=== PATIENT | female | born 1945 | race Caucasian/White ===

== ENCOUNTER 2023-04-09 15:52 | Outpatient (OUT) | payer MEDICARE, OTHER, SELFPAY ==
--- NOTE | 2023-04-09 16:00 | MM_ITS ---
Patient: JESSICA SILVA Exam Date: 04/09/2023 : 1945 Gender:F Ordering : DR SAMIR MARTINI M.D. Admission #: [id number] Family : Order #: [id number] CLICK HERE TO VIEW EXAM RADIOLOGY REPORT PROCEDURE: MM TOMOSYNTHESIS SCREENING BI COMPARISON: MG MAMM SCREEN 3D MARCO A CAD, 08/18/2021. MG MAMM SCREEN MARCO A W CAD, 03/25/2020. MG MAMM SCREEN MARCO A W CAD, 11/07/2018. MG MAMM MARCO A DIAG W CAD DIG, 11/04/2014. INDICATIONS: Z12.31 Calculator Name NCI Breast Cancer Risk Assessment Tool 5 Year Breast Cancer Risk 3.30% Lifetime Breast Cancer Risk 7.00% Personal Breast Cancer No Personal Ovarian Cancer No Treatments None Family Cancers Mother with breast cancer at age ~47; Cousin-maternal with ovarian cancer at age 50. LOCATION: [facility] BREAST COMPOSITION: Scattered areas fibroglandular density. FINDINGS: DIAGNOSTIC CATEGORY 2--BENIGN FINDING: RIGHT BREAST: No significant suspicious finding. Scattered benign-appearing lymph nodes are present. No significant change has occurred. LEFT BREAST: No significant suspicious finding. Scattered benign-appearing calcifications are present. Scattered benign-appearing nodules are present. No significant change has occurred. RECOMMENDATIONS: ROUTINE MAMMOGRAM AND CLINICAL EVALUATION IN 12 MONTHS. PLEASE NOTE: A NORMAL MAMMOGRAM DOES NOT EXCLUDE THE POSSIBILITY OF BREAST CANCER. A CLINICALLY SUSPICIOUS PALPABLE LUMP SHOULD BE BIOPSIED. Dictated by: Tariq Levin M.D. on 04/10/2023 at 14:54 Approved by: Tariq Levin M.D. on 04/10/2023 at 14:56
== END 2023-04-09 15:53 | disposition home or self-care (01) ==
PROVIDERS: PCP Internal Medicine; Visit Provider Internal Medicine
DX: Z12.31 Encounter for screening mammogram for malignant neoplasm of breast (principal); Z80.3 Family history of malignant neoplasm of breast; Z80.41 Family history of malignant neoplasm of ovary
CPT/HCPCS: 77063; 77067

== ENCOUNTER 2023-08-24 16:34 | Observation (INO) | payer MEDICARE, SELFPAY ==
[2023-08-24] VITALS (8 sets, daily range): BP systolic 120–158; BP diastolic 65–79; PULSE 61–78; RESP 15–20; TEMP 36.4–36.6; O2SAT 97–98; BMI 20.2
--- NOTE | 2023-08-24 16:38 | ECG_ITS ---
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
--- NOTE | 2023-08-24 16:39 | CT_ITS ---
The [address] [address] Patient Name: JESSICA SILVA MRN: [id number] date: 1945 Sex: F Assigned Patient Location: ER Current Patient Location: ER Accession/Order Number: [id number] Exam Date: 08/24/2023 17:11 Report Date: 08/24/2023 18:01 At the request of: SANGEETHA PIERRE Procedure: CT head/brain wo con EXAM: CT head/brain wo con HISTORY: 20 minutes of left arm and leg tingling COMPARISON: None. TECHNIQUE: Unenhanced transaxial tomographic sections obtained from the vertex through posterior fossa. FINDINGS: Mild diffuse age-related cerebral atrophy. No midline shift, mass effect or intracranial hemorrhage are identified. The mastoid air cells and visualized paranasal sinuses are clear. CT/CT head/brain wo con IMPRESSION: No acute intracranial process is identified. Electronically authenticated by: RACHEL MCCONNELL Date: 08/24/2023 18:01
--- NOTE | 2023-08-24 16:47 | ED_ITS ---
HPI - General Adult General Chief complaint: Weakness Stated complaint: poss cva Time Seen by Provider: 08/24/23 16:38 History of Present Illness HPI narrative: 77-year-old female presents for tingling in her left arm and left leg. It happened about 2 hours ago and lasted for 20 minutes. She has no symptoms now. No headache or weakness or numbness. Nothing like this has happened previously. She was transported here by paramedics Related Data Home Medications Medication Instructions Recorded Confirmed gabapentin 600 mg tablet 300 mg PO TID 08/24/23 08/24/23 losartan 50 mg-hydrochlorothiazide 1 tab PO DAILY 08/24/23 08/24/23 12.5 mg tablet meloxicam 15 mg tablet 15 mg PO DAILY 08/24/23 08/24/23 ropinirole 0.5 mg tablet mg 08/24/23 ropinirole 1 mg tablet 1 mg PO BID 08/24/23 08/24/23 tramadol 50 mg tablet 50 mg PO TID PRN pain 08/24/23 08/24/23 Allergies Allergy/AdvReac Type Severity Reaction Status Date / Time nka AdvReac Unknown Uncoded 08/24/23 16:50 Review of Systems ROS Narrative A ten point review of systems is negative except as noted above. Exam Narrative Exam Narrative: Nurses note and vital signs reviewed and patient is not hypoxic. General: The patient appears well and in no apparent distress. Patient is resting comfortably on cart. Skin: Warm, dry, no pallor noted. There is no rash noted. Head: Normocephalic, atraumatic Eye: Normal conjunctiva, no drainage Ears, Nose, Mouth, and Throat: oral mucosa is moist. Nares patent. Cardiovascular: Regular Rate and Rhythm Respiratory: Patient is in no distress, no accessory muscle use, lungs are clear to auscultation, no wheezing, rales or rhonchi Back: non-tender GI: Soft and nontender Musculoskeletal: The patient has no evidence of calf tenderness, no pitting edema, symmetrical pulses noted bilaterally Neurological: A&O x4, normal speech, cranial nerves II through XII intact, upper and lower extremity strength symmetric and intact. Psychiatric: Cooperative Constitutional Vital Signs, click to edit/add: Last Vital Signs Temp 97.9 F 08/24/23 16:40 Pulse 69 08/24/23 17:20 Resp 16 08/24/23 17:20 BP 147/65 H 08/24/23 16:42 Pulse Ox 98 08/24/23 17:20 O2 Del Method Room Air 08/24/23 16:40 Course Vital Signs Vital signs: Vital Signs Temperature 97.9 F 08/24/23 16:40 Pulse Rate 72 08/24/23 16:40 Respiratory Rate 20 08/24/23 16:40 Blood Pressure 147/65 H 08/24/23 16:40 Pulse Oximetry 98 08/24/23 16:40 Oxygen Delivery Method Room Air 08/24/23 16:40 Temperature 97.9 F 08/24/23 16:40 Pulse Rate 69 08/24/23 17:20 Respiratory Rate 16 08/24/23 17:20 Blood Pressure 147/65 H 08/24/23 16:42 Pulse Oximetry 98 08/24/23 17:20 Oxygen Delivery Method Room Air 08/24/23 16:40 Medical Decision Making MDM Narrative Medical decision making narrative: CT brain per radiologist shows no acute findings. She remains asymptomatic. CTA head and neck are ordered and pending and the patient is signed out to Dr. Gutierrez at change of shift. Differential Diagnosis Differential Diagnosis: Paresthesia, stroke, TIA Lab Data Lab results reviewed: Yes I reviewed the patient's lab results Labs: Lab Results 08/24/23 Range/Units 16:50 WBC 5.9 (4.0-11.0) 10^3/uL RBC 4.00 L (4.20-5.40) 10^6/uL Hgb 12.3 (12.0-16.0) g/dL Hct 37.4 (36.0-48.0) % MCV 93.5 (81.0-99.0) fL MCH 30.8 (26.7-34.0) pg MCHC 32.9 (29.9-35.2) g/dL RDW 12.0 (11.0-15.0) % Plt Count 290 (150-450) 10^3/uL MPV 8.5 L (9.5-13.5) fL Neut % (Auto) 59.2 (43.0-75.0) % Lymph % (Auto) 28.9 (20.5-60.0) % [place] % (Auto) 7.8 (1.7-12.0) % Eos % (Auto) 3.2 (0.9-7.0) % Baso % (Auto) 0.7 (0.2-2.0) % Neut # (Auto) 3.5 (1.4-6.5) 10^3/uL Lymph # (Auto) 1.7 (1.2-3.8) 10^3/uL [place] # (Auto) 0.5 (0.3-0.8) 10^3/uL Eos # (Auto) 0.2 (0.0-0.7) 10^3/uL Baso # (Auto) 0.0 (0.0-0.1) 10^3/uL Abs Immat Gran (auto) 0.01 (0.00-0.03) 10^3/uL Imm/Tot Granulo (auto) 0.2 (0.0-0.5) % Sodium 140 (136-145) mmol/L Potassium 3.7 (3.5-5.1) mmol/L Chloride 101 (98-107) mmol/L Carbon Dioxide 31.1 (21.0-32.0) mmol/L Anion Gap 11.6 BUN 21.0 H (7.0-18.0) mg/dL Creatinine 0.88 (0.55-1.02) mg/dL Est GFR ( Amer) >60 (>=60) Est GFR (Non-Af Amer) >60 (>=60) BUN/Creatinine Ratio 23.9 Glucose 118 H (74-106) mg/dL Calcium 8.9 (8.5-10.1) mg/dL Imaging Data CT scan - head: Radiologist's impression: ITS Impressions Head CT 08/24/23 16:39 IMPRESSION: No acute intracranial process is identified. Electronically authenticated by: RACHEL MCCONNELL Date: 08/24/2023 18:01 ECG Data Attestation: I personally reviewed and interpreted this ECG as follows: (EKG on my interpretation shows normal sinus rhythm without acute change and a rate of 69.) Discharge Plan Discharge Patient Disposition: Still a Patient
[2023-08-24 17:02] LABS: Basophils Percent Auto 0.7 % (0.2-2.0); Eosinophils Absolute Auto 0.2 10^3/uL (0.0-0.7); Eosinophils Percent Auto 3.2 % (0.9-7.0); Hematocrit 37.4 % (36.0-48.0); Hemoglobin 12.3 g/dL (12.0-16.0); Immature Granulocytes Abs Auto 0.01 10^3/uL (0.00-0.03); Immature Granulocytes Pct Auto 0.2 % (0.0-0.5); Lymphocytes Absolute Auto 1.7 10^3/uL (1.2-3.8); Lymphocytes Percent Auto 28.9 % (20.5-60.0); Mean Corpuscular HGB Conc 32.9 g/dL (29.9-35.2); Mean Corpuscular Hemoglobin 30.8 pg (26.7-34.0); Mean Corpuscular Volume 93.5 fL (81.0-99.0); Mean Platelet Volume 8.5 fL (9.5-13.5); Monocytes Absolute Auto 0.5 10^3/uL (0.3-0.8); Monocytes Percent Auto 7.8 % (1.7-12.0); Neutrophils Absolute Auto 3.5 10^3/uL (1.4-6.5); Neutrophils Percent Auto 59.2 % (43.0-75.0); Platelet Count 290 10^3/uL (150-450); White Blood Count 5.9 10^3/uL (4.0-11.0)
[2023-08-24 17:14] LABS: Anion Gap 11.6; BUN Creatinine Ratio 23.9; Calcium 8.9 mg/dL (8.5-10.1); Carbon Dioxide 31.1 mmol/L (21.0-32.0); Chloride 101 mmol/L (98-107); Estimated GFR (African America >60 (>=60); Estimated GFR (Non-African Ame >60 (>=60); Glucose 118 mg/dL (74-106); Potassium 3.7 mmol/L (3.5-5.1); Sodium 140 mmol/L (136-145)
--- NOTE | 2023-08-24 18:06 | CT_ITS ---
[address] [address] Patient Name: JESSICA SILVA MRN: [id number] date: 1945 Sex: F Assigned Patient Location: ER Current Patient Location: Accession/Order Number: [id number] Exam Date: 08/24/2023 18:40 Report Date: 08/24/2023 19:24 At the request of: SANGEETHA PIERRE Procedure: CT angio neck EXAM: CT angio head, CT angio neck CLINICAL INDICATION: Transient paresthesia COMPARISON: Same day CT head TECHNIQUE: Contiguous axial images are obtained from the neck to the vertex before and after the administration of nonionic contrast. 2-D and 3-D reconstructions were performed to better evaluate the vasculature. NASCET criteria was utilized during interpretation of internal carotid artery stenosis. Automatic exposure control radiation dose reduction technology was utilized. FINDINGS: There are no vascular occlusions observed. The bilateral common and internal carotid arteries are grossly patent with only mild scattered calcific plaque in the carotid bulbs bilaterally. The vertebral arteries, basilar artery and basilar artery bifurcation are normal. The posterior communicating arteries are not visualized on the source images. The internal carotid artery bifurcations, the middle cerebral artery bifurcation/trifurcation regions and the anterior communicating artery region appears normal. The posterior cerebral arteries appear intact in the visualized segments. The brain parenchyma is normal. The ventricles, basal cisterns, and sulci over the convexities are normal. The orbits, visualized paranasal sinuses and bony calvarium are normal. The sella turcica and cavernous sinus regions appear intact. The mastoid air cells are normal. The fossa of Rosenmuller is normal. The parotid space contents and executive producer promos space contents appear intact. The parapharyngeal spaces are normal. The submandibular and sublingual space contents appear intact. The submental space is intact. The epiglottis, aryepiglottic folds, and piriform sinuses are normal. The vallecula appears normal. The larynx and trachea are normal. The thyroid lobes and esophagus appear intact. The carotid space contents are normal. There is no deep cervical chain adenopathy observed. The jugulodigastric regions appear intact. The perivertebral space contents are normal. The supraclavicular regions appear intact. The visualized mediastinum and lungs appear intact. Mild degenerative changes of the cervical spine. CT/CT angio neck IMPRESSION: No significant vascular occlusion, aneurysm or dissection. Electronically authenticated by: ULISES RAMIREZ Date: 08/24/2023 19:24
--- NOTE | 2023-08-24 18:06 | CT_ITS ---
[address] [address] Patient Name: JESSICA SILVA MRN: [id number] date: 1945 Sex: F Assigned Patient Location: ER Current Patient Location: Accession/Order Number: [id number] Exam Date: 08/24/2023 18:40 Report Date: 08/24/2023 19:24 At the request of: SANGEETHA PIERRE Procedure: CT angio head EXAM: CT angio head, CT angio neck CLINICAL INDICATION: Transient paresthesia COMPARISON: Same day CT head TECHNIQUE: Contiguous axial images are obtained from the neck to the vertex before and after the administration of nonionic contrast. 2-D and 3-D reconstructions were performed to better evaluate the vasculature. NASCET criteria was utilized during interpretation of internal carotid artery stenosis. Automatic exposure control radiation dose reduction technology was utilized. FINDINGS: There are no vascular occlusions observed. The bilateral common and internal carotid arteries are grossly patent with only mild scattered calcific plaque in the carotid bulbs bilaterally. The vertebral arteries, basilar artery and basilar artery bifurcation are normal. The posterior communicating arteries are not visualized on the source images. The internal carotid artery bifurcations, the middle cerebral artery bifurcation/trifurcation regions and the anterior communicating artery region appears normal. The posterior cerebral arteries appear intact in the visualized segments. The brain parenchyma is normal. The ventricles, basal cisterns, and sulci over the convexities are normal. The orbits, visualized paranasal sinuses and bony calvarium are normal. The sella turcica and cavernous sinus regions appear intact. The mastoid air cells are normal. The fossa of Rosenmuller is normal. The parotid space contents and truck driver heavy space contents appear intact. The parapharyngeal spaces are normal. The submandibular and sublingual space contents appear intact. The submental space is intact. The epiglottis, aryepiglottic folds, and piriform sinuses are normal. The vallecula appears normal. The larynx and trachea are normal. The thyroid lobes and esophagus appear intact. The carotid space contents are normal. There is no deep cervical chain adenopathy observed. The jugulodigastric regions appear intact. The perivertebral space contents are normal. The supraclavicular regions appear intact. The visualized mediastinum and lungs appear intact. Mild degenerative changes of the cervical spine. CT/CT angio head IMPRESSION: No significant vascular occlusion, aneurysm or dissection. Electronically authenticated by: ULISES RAMIREZ Date: 08/24/2023 19:24
--- NOTE | 2023-08-24 19:56 | PC.NURSE ---
SLIGHT WEAKNESS RIGHT FOOT DUE TO NEUROPATHY AND MUSCLE DISEASE
[2023-08-25 05:37] VITALS: BP 92/51; PULSE 60; RESP 18; TEMP 36.6; O2SAT 94
[2023-08-25 05:41] LABS: Basophils Absolute Auto 0.1 10^3/uL (0.0-0.1); Basophils Percent Auto 0.8 % (0.2-2.0); Eosinophils Absolute Auto 0.3 10^3/uL (0.0-0.7); Eosinophils Percent Auto 3.9 % (0.9-7.0); Hematocrit 35.6 % (36.0-48.0); Hemoglobin 11.7 g/dL (12.0-16.0); Immature Granulocytes Abs Auto 0.02 10^3/uL (0.00-0.03); Immature Granulocytes Pct Auto 0.3 % (0.0-0.5); Lymphocytes Absolute Auto 2.9 10^3/uL (1.2-3.8); Lymphocytes Percent Auto 44.4 % (20.5-60.0); Mean Corpuscular HGB Conc 32.9 g/dL (29.9-35.2); Mean Corpuscular Hemoglobin 30.6 pg (26.7-34.0); Mean Corpuscular Volume 93.2 fL (81.0-99.0); Mean Platelet Volume 8.7 fL (9.5-13.5); Monocytes Absolute Auto 0.6 10^3/uL (0.3-0.8); Monocytes Percent Auto 9.1 % (1.7-12.0); Neutrophils Absolute Auto 2.7 10^3/uL (1.4-6.5); Neutrophils Percent Auto 41.5 % (43.0-75.0); Platelet Count 266 10^3/uL (150-450); Red Blood Count 3.82 10^6/uL (4.20-5.40); Red Cell Distribution Width 12.1 % (11.0-15.0); White Blood Count 6.5 10^3/uL (4.0-11.0)
[2023-08-25 06:21] LABS: Alanine Aminotransferase 22 U/L (14-59); Albumin Globulin Ratio 0.9; Alkaline Phosphatase 76 U/L (46-116); Anion Gap 9.5; Aspartate Amino Transferase 19 U/L (15-37); BUN Creatinine Ratio 18.8; Bilirubin Total 0.6 mg/dL (0.2-1.0); Calcium 8.7 mg/dL (8.5-10.1); Carbon Dioxide 29.8 mmol/L (21.0-32.0); Chloride 102 mmol/L (98-107); Estimated GFR (African America >60 (>=60); Estimated GFR (Non-African Ame >60 (>=60); Globulin 3.4 g/dL; Glucose 83 mg/dL (74-106); Potassium 3.3 mmol/L (3.5-5.1); Sodium 138 mmol/L (136-145); Total Protein 6.4 g/dL (6.4-8.2); Troponin I High Sensitivity <4.0 pg/mL (4.0-51.3)
[2023-08-25 08:00] VITALS: RESP 18
[2023-08-25] MEDS: ASPIRIN 81 MG TABLET.DR PO (08:09)
--- NOTE | 2023-08-25 09:17 | P.HP_ITS ---
H&P: HPI History of Present Illness Chief complaint: poss cva TIA Narrative: Patient presented to the emergency room after having about a 20-minute episodes of left-sided weakness. She could move her upper and lower left extremity. No difficulty with her speech or swallowing. But definitely weak on that side. By time patient was in the ER symptoms had resolved. Workup in ER was unremarkable with a normal CTA of head and neck. She was observed overnight. Placed on baby aspirin initially. Changed to full aspirin today. No further symptoms overnight. Feels back to her normal self on my exam this morning Review of Systems ROS Status of ROS 10 or more systems reviewed and unremark able except as noted in history and below Meds Home Medications and Allergies Home Medications Medication Instructions Recorded Confirmed Type gabapentin 600 mg tablet 300 mg PO TID 08/24/23 08/24/23 History losartan 50 mg-hydrochlorothiazide 1 tab PO DAILY 08/24/23 08/24/23 History 12.5 mg tablet meloxicam 15 mg tablet 15 mg PO DAILY 08/24/23 08/24/23 History ropinirole 0.5 mg tablet 0.5 mg PO BID PRN restless leg(s) 08/24/23 08/25/23 History ropinirole 1 mg tablet 1 mg PO BID 08/24/23 08/24/23 History tramadol 50 mg tablet 50 mg PO TID PRN pain 08/24/23 08/24/23 History aspirin 325 mg capsule 325 mg PO DAILY #100 caps 08/25/23 Rx Allergies Allergy/AdvReac Type Severity Reaction Status Date / Time nka AdvReac Unknown Uncoded 08/24/23 16:50 Exam Constitutional Vital Signs, click to edit/add: Last Vital Signs Temp 97.8 F 08/25/23 05:37 Pulse 60 08/25/23 05:37 Resp 18 08/25/23 08:00 BP 92/51 08/25/23 05:37 Pulse Ox 94 L 08/25/23 05:37 O2 Del Method Room Air 08/25/23 05:37 Documenting provider has reviewed patient's vital signs: yes Common normals: no apparent distress HENMT Common normals: normocephalic, head/scalp atraumatic and moist oral mucous membranes Chest Common normals: inspection of chest normal Respiratory Common normals: normal respiratory effort and no retractions Cardio Common normals: regular rate and regular rhythm GI Common normals: Normal to inspection, nondistended, normoactive bowel sounds present Neuro Common normals: oriented x3, CN's II-XII intact bilaterally and moves all extremities Results Labs Labs: Short CBC 08/24/23 08/25/23 Range/Units 16:50 04:55 WBC 5.9 6.5 (4.0-11.0) 10^3/uL Hgb 12.3 11.7 L (12.0-16.0) g/dL Hct 37.4 35.6 L (36.0-48.0) % Plt Count 290 266 (150-450) 10^3/uL BMP 08/24/23 08/25/23 16:50 04:55 Sodium 140 138 Potassium 3.7 3.3 L Chloride 101 102 Carbon Dioxide 31.1 29.8 BUN 21.0 H 16.0 Creatinine 0.88 0.85 Glucose 118 H 83 Calcium 8.9 8.7 Liver Function 08/25/23 Range/Units 04:55 Total Bilirubin 0.6 (0.2-1.0) mg/dL AST 19 (15-37) U/L ALT 22 (14-59) U/L Alkaline Phosphatase 76 (46-116) U/L Albumin 3.0 L (3.4-5.0) g/dL Assessment and Plan Assessment and Plan (1) Transient ischemic attack: Assessment and Plan: Place patient on full-strength aspirin today. The only workup that further needs to be completed would be an echocardiogram. No significant heart history and exam was normal. Can follow-up with PCP as an outpatient for that (2) Hypertension: Assessment and Plan: Stable (3) Iron deficiency anemia: Assessment and Plan: Monitor urine output (4) Hypokalemia: Assessment and Plan: Supplemented (5) Restless leg syndrome: Assessment and Plan: Continue with home medications (6) Peripheral neuropathy: Assessment and Plan: Home medications Plan Patient placed in observation bed. No further symptoms overnight. Nothing on telemetry. At this point should be discharged home. Medications see list. Follow-up with PCP next week.
--- NOTE | 2023-08-25 09:17 | PM.DS1 ---
DS: Providers Provider Date of admission: 08/24/23 22:35 Primary care physician: SAMIR MARTINI DS: Summary Hospital Course Hospital Course: Patient was placed in observation bed overnight. Placed on telemetry. Neurochecks were completed. She had no further episodes of her left-sided weakness. She feels back to her normal self. Her blood pressure is somewhat elevated on admission is improved currently. This point should be discharged home in improving condition. Medications see list. With the additional full-strength aspirin. That can be adjusted as an outpatient per her PCP. Only further workup recommended at this time would be a echocardiogram. Time Spent with Patient Time attestation: Total time spent providing and/or coordinating discharge services: Quality: Stroke Onset of Symptoms Date: 08/24/23 Onset of Symptoms Time: 14:30 Symptom Onset Unknown: No Exam Constitutional Vital Signs, click to edit/add: Last Vital Signs Temp 97.8 F 08/25/23 05:37 Pulse 60 08/25/23 05:37 Resp 18 08/25/23 08:00 BP 92/51 08/25/23 05:37 Pulse Ox 94 L 08/25/23 05:37 O2 Del Method Room Air 08/25/23 05:37 Documenting provider has reviewed patient's vital signs: yes Common normals: no apparent distress HENMT Common normals: normocephalic, head/scalp atraumatic and moist oral mucous membranes Chest Common normals: inspection of chest normal Respiratory Common normals: normal respiratory effort and no retractions Cardio Common normals: regular rate and regular rhythm GI Common normals: Normal to inspection, nondistended, normoactive bowel sounds present Neuro Common normals: oriented x3, CN's II-XII intact bilaterally and moves all extremities DS: Data Data Completed and Pending Labs on day of discharge: Labs from last 24 hours 08/25/23 08/24/23 04:55 16:50 WBC 6.5 5.9 RBC 3.82 L 4.00 L Hgb 11.7 L 12.3 Hct 35.6 L 37.4 MCV 93.2 93.5 MCH 30.6 30.8 MCHC 32.9 32.9 RDW 12.1 12.0 Plt Count 266 290 MPV 8.7 L 8.5 L Neut % (Auto) 41.5 L 59.2 Lymph % (Auto) 44.4 28.9 [place] % (Auto) 9.1 7.8 Eos % (Auto) 3.9 3.2 Baso % (Auto) 0.8 0.7 Neut # (Auto) 2.7 3.5 Lymph # (Auto) 2.9 1.7 [place] # (Auto) 0.6 0.5 Eos # (Auto) 0.3 0.2 Baso # (Auto) 0.1 0.0 Abs Immat Gran (auto) 0.02 0.01 Imm/Tot Granulo (auto) 0.3 0.2 Sodium 138 140 Potassium 3.3 L 3.7 Chloride 102 101 Carbon Dioxide 29.8 31.1 Anion Gap 9.5 11.6 BUN 16.0 21.0 H Creatinine 0.85 0.88 Est GFR ( Amer) >60 >60 Est GFR (Non-Af Amer) >60 >60 BUN/Creatinine Ratio 18.8 23.9 Glucose 83 118 H Calcium 8.7 8.9 Total Bilirubin 0.6 AST 19 ALT 22 Alkaline Phosphatase 76 Troponin I High Sens <4.0 L Total Protein 6.4 Albumin 3.0 L Globulin 3.4 Albumin/Globulin Ratio 0.9 Discharge Plan Discharge Disposition: Home, Self-Care Condition: Good Discharge Medications: New aspirin 325 mg capsule 325 mg PO DAILY Qty: 100 11RF Continued gabapentin 600 mg tablet 300 mg PO TID losartan-hydrochlorothiazide 50-12.5 mg tablet 1 tab PO DAILY meloxicam 15 mg tablet 15 mg PO DAILY tramadol 50 mg tablet 50 mg PO TID PRN (Reason: pain) ropinirole 1 mg tablet 1 mg PO BID ropinirole 0.5 mg tablet 0.5 mg PO BID PRN (Reason: restless leg(s)) Activity: increase activity as tolerated Diet: advance to your usual diet Patient Instructions: Aspirin (By mouth), Paresthesia (ED) Forms: Portal Instructions Follow Up Appointments: Follow up with your family doctor within the next 7-10 business days Discharge Date/Time: 08/25/23 10:26
[2023-08-25] MEDS: ASPIRIN 325 MG TABLET.DR PO (09:41)
--- NOTE | 2023-09-02 15:11 | CM.DCFOLLOWU ---
Person spoke with: patient How are you feeling? well How is your pain? no pain Did you understand your discharge instructions? yes Do you have any questions about your discharge instructions? no Were you given any prescriptions at discharge? yes Were you able to get your prescriptions filled? yes Do you understand how to take your medications as ordered? yes Do you have any questions about your follow up appointment and do you plan to keep your follow up appointment? no questions, follow up Saturday09/04/23 Is there anything else that you would like to discuss? no Questions/Comments/Concerns/Other:
== END 2023-08-25 10:26 | disposition home or self-care (01) ==
LOC: ER 20:49 → MS 22:39
PROVIDERS: Emergency Medicine; Nurse Practitioner Acute Care; Admitting Provider Family Medicine; Emergency Provider Emergency Medicine; PCP Internal Medicine; Visit Provider Family Medicine
DX: G45.9 Transient cerebral ischemic attack, unspecified (principal); I10 Essential (primary) hypertension; D50.9 Iron deficiency anemia, unspecified; E87.6 Hypokalemia; G25.81 Restless legs syndrome; G62.9 Polyneuropathy, unspecified; Z79.899 Other long term (current) drug therapy
CPT/HCPCS: 36415; 70450; 70496; 70498; 80048; 80053; 84484; 85025; 93005; 99285; G0378; Q9967

== ENCOUNTER 2024-02-26 10:54 | Outpatient (OUT) | payer MEDICARE, SELFPAY ==
--- NOTE | 2024-02-26 10:58 | XR_ITS ---
[address] [address] Patient Name: JESSICA SILVA MRN: [id number] date: 1945 Sex: F Assigned Patient Location: [facility] Current Patient Location: [facility] Accession/Order Number: [id number] Exam Date: 02/26/2024 11:05 Report Date: 02/26/2024 11:36 At the request of: MICHAEL MORRISSEY Procedure: XR DEXA axial skeleton EXAMINATION: XR DEXA axial skeleton HISTORY: Osteopenia M85.89 COMPARISON: DEXA bone densitometry 11/10/2020 TECHNIQUE: Dual-energy X-ray absorptiometry (DXA) was performed. FINDINGS: SPINE ANALYSIS: Average bone mineral density is 1.156 g/cm2. T-score (standard deviation relative to young adult mean): -0.4 . -4.7% change since prior study. HIP ANALYSIS: Lowest bone mineral density is within the left femoral neck, 0.951 g/cm2. T-score (standard deviation relative to young adult mean): -0.6 . -4.3% change since prior study. XR/XR DEXA axial skeleton IMPRESSION: World Health Organization Classification: Osteopenia - Moderate Fracture Risk FRAX: Cannot calculate. Pharmacologic treatment recommendations * No uniform recommendation applies to all patients. Management plans must be individualized. * Consider initiating pharmacologic treatment in postmenopausal women and men >= 50 years of age who have the following: Primary fracture prevention: * T-score <= - 2.5 at the femoral neck, total hip, lumbar spine, 33% radius (some uncertainty with existing data) by DXA. * Low bone mass (osteopenia: T-score between - 1.0 and - 2.5) at the femoral neck or total hip by DXA with a 10-year hip fracture risk >= 3% or a 10-year major osteoporosis-related fracture risk >= 20% (i.e., clinical vertebral, hip, forearm, or proximal humerus) based on the [place]-adapted FRAXregistered model. Secondary fracture prevention: * Fracture of the hip or vertebra regardless of BMD [4, 5]. * Fracture of proximal humerus, pelvis, or distal forearm in persons with low bone mass (osteopenia: T-score between - 1.0 and - 2.5). The decision to treat should be individualized in persons with a fracture of the proximal humerus, pelvis, or distal forearm who do not have osteopenia or low BMD [12, 13]. Roseanne MS, Britni SL, Lorena KL, Prasanna EM, Erik KG, AJ, Nick ES. The clinician's guide to prevention and treatment of osteoporosis. Osteoporos Int. 2021;33(10):1870-7557. doi: 10.1007/l65854-129-40146-o. Epub 2021Nov 16. Erratum in: Osteoporos Int. 2021Feb 15;: PMID: [id number]; PMCID: [id number]. Electronically authenticated by: HALEIGH FINE Date: 02/26/2024 11:36
--- OUTSIDE RECORDS SUMMARY | 2024-02-26 11:05 | XMS_ITS | CCD ---
Author Organization [facility] Care Team Providers Care Contract Design Agent Name Role Phone ANUP CASTRO Attending Unavailable HIGHLANUP HUBBARD Admitting Unavailable LINTON, DR DAWSON Primary Care Unavailable HIGHLANUP HUBBARD Attending Unavailable HIGHLANUP HUBBARD Admitting Unavailable LINTON, DR DAWSON Primary Care Unavailable HIGHLANDERANUP Attending Unavailable HIGHLANDERANUP Admitting Unavailable LINTON, DR DAWSON Primary Care Unavailable LINTON, DR DAWSON Primary Care Unavailable HIGHLANUP HUBBARD Attending Unavailable HIGHLANUP HUBBARD Consulting Unavailable HIGHLANUP HUBBARD Admitting Unavailable LINTON, DR DAWSON Primary Care Unavailable HIGHLANDERANUP Admitting Unavailable HIGHLANDER, ANUP Anderson Attending Unavailable HIGHLANDERANUP Attending Unavailable HIGHLANDERANUP Admitting Unavailable LINTON, DR DAWSON Primary Care Unavailable HIGHLANDERANUP Attending Unavailable HIGHLANDERANUP Admitting Unavailable LINTON, DR DAWSON Primary Care Unavailable HIGHLANDERANUP Attending Unavailable LINTON, DR DAWSON Primary Care Unavailable HIGHLANDERANUP Admitting Unavailable HIGHLANDER, ANUP Anderson Attending Unavailable HIGHLANDERANUP Admitting Unavailable LINTON, DR DAWSON Primary Care Unavailable LINTON, DR DAWSON Primary Care Unavailable HIGHLANDERANUP Attending Unavailable HIGHLANDER, ANUP Anderson Admitting Unavailable HIGHLANDER, ANUP Anderson Attending Unavailable HIGHLANDERANUP Admitting Unavailable WEST, DR AYDEN Salmon Consulting Unavailable LINTON, DR DAWSON Primary Care Unavailable HIGHLANDERANUP Consulting Unavailable LINTON, DR DAWSON Primary Care Unavailable HIGHLANUP HUBBARD Attending Unavailable HIGHLANDER, ANUP Anderson Admitting Unavailable HIGHLANDER, ANUP Anderson Attending Unavailable HIGHLANDER, ANUP Anderson Admitting Unavailable LINTON, DR DAWSON Primary Care Unavailable HIGHLANUP HUBBARD Attending Unavailable HIGHLANUP HUBBARD Admitting Unavailable LINTON, DR DAWSON Primary Care Unavailable HIGHLANUP HUBBARD Attending Unavailable HIGHLANUP HUBBARD Admitting Unavailable LINTON, DR DAWSON Primary Care Unavailable LINTON, DR DAWSON Primary Care Unavailable HIGHLANDER, ANUP Anderson Attending Unavailable HIGHLANDER, ANUP Anderson Admitting Unavailable WEST, DR AYDEN Salmon Consulting Unavailable HIGHLANDER, ANUP Anderson Consulting Unavailable LINTON, DR DAWSON Primary Care Unavailable HIGHLANDER, ANUP Anderson Admitting Unavailable HIGHLANDER, ANUP Anderson Attending Unavailable LINTON, DR DAWSON Primary Care Unavailable HIGHLANDER, ANUP Anderson Attending Unavailable HIGHLANDER, ANUP Anderson Consulting Unavailable HIGHLANDER, ANUP Anderson Admitting Unavailable AYYAGARI ., MAURICIO Consulting Unavailable MCCORNATARIQ PEGUERO Consulting Unavailable HIGHLANDER, ANUP Anderson Attending Unavailable HIGHLANDER, ANUP Anderson Admitting Unavailable LINTON, DR DAWSON Primary Care Unavailable WEST, DR AYDEN Salmon Consulting Unavailable HIGHLANDER, ANUP Anderson Consulting Unavailable YARELIS ., CAROLYN FROST Consulting Unavailable SHARP, SVEN Consulting Unavailable GEMBUSKVNG Consulting Unavailable HIGHLANDER, ANUP Anderson Attending Unavailable LINTON, DR DAWSON Primary Care Unavailable HIGHLANDER, ANUP Anderson Admitting Unavailable LINTON, DR DAWSON Primary Care Unavailable HIGHLANDER, ANUP Anderson Admitting Unavailable HIGHLANDER, ANUP Anderson Attending Unavailable LINTON, DR DAWSON Primary Care Unavailable HIGHLANDER, ANUP Anderson Attending Unavailable ZIEBER, DR TARIQ Pyle Consulting Unavailable HIGHLANDER, ANUP Anderson Admitting Unavailable HIGHLANDER, AUNP Anderson Consulting Unavailable CHICHOKELBY Consulting Unavailable YARELIS ., CAROLYN FROST Consulting Unavailable SHARP, SVEN Consulting Unavailable CLARISA II, RACHEL Consulting Unavailable HIGHLANDER, ANUP Anderson Attending Unavailable HIGHLANDER, ANUP Anderson Consulting Unavailable HIGHLANDER, ANUP D Admitting Unavailable LINTON, DR DAWSON Primary Care Unavailable ALFREDOTHERESE Consulting Unavailable LINTON, DR DAWSON Primary Care Unavailable HIGHLANDER, ANUP Anderson Attending Unavailable HIGHLANDER, ANUP Anderson Admitting Unavailable LINTON, DR DAWSON Primary Care Unavailable HIGHLANDER, ANUP Anderson Admitting Unavailable HIGHLANDER, ANUP Anderson Attending Unavailable WEST, DR AYDEN Salmon Consulting Unavailable HIGHLANDER, ANUP Anderson Consulting Unavailable Linton Kvng DELONG Primary Care Provider Kvng Linton MD Unavailable Kvng Linton MD Primary Care Provider IRWIN HODGE Attending Unavailable IRWIN HODGE Admitting Unavailable ROYA MATTHEWS Primary Care Unavailable JESUS BINGHAM Attending Unavailable KVNG LINTON Referring Unavailable KVNG LINTON Primary Care Unavailable KAMLA AYALA Admitting Unavailable KAMLA AYALA Attending Unavailable KAMLA AYALA Referring Unavailable KVNG LINTON Primary Care Unavailable KAMLA AYALA Attending Unavailable KAMLA AYALA Referring Unavailable KVNG LINTON Primary Care Unavailable AYDEN LAN Attending Unavailable KVNG LINTON Primary Care Unavailable KAMLA AYALA Referring Unavailable KVNG LINTON Primary Care Unavailable KVNG LINTON Attending Unavailable MICHAEL MORRISSEY Attending Unavailable MICHAEL MORRISSEY Attending Unavailable KVNG LINTON Attending Unavailable MICHAEL MORRISSEY Attending Unavailable Allergies Allergy Classification Reported Allergen(s) Allergy Type Date of Onset Reaction(s) Facility (1 source) Amoxicillin / Clavulanate Drug Allergy [facility] Repository (1 source) Cephalexin Drug Allergy 9 [facility]ository (1 source) Sulfonamides (Antibiotic) Drug allergy (disorder) [facility] Repository (4 sources) Sulfonamides (Antibiotic) Drug Allergy 2 [facility] (7 sources) Amoxicillin-Pot Clavulanate; Translations: [AMOXICILLIN-POT CLAVULANATE] Drug Allergy 1 Nausea Only [facility] (3 sources) Sulfonamides (Antibiotic); Translations: [SULFA (SULFONAMIDE ANTIBIOTICS)] Propensity to adverse reactions to drug (disorder) 2 [facility] Repository Medications Current Medications Medication Drug Class(es) Dates Sig (Normalized) Sig (Original) acetaminophen 325 mg / HYDROcodone bitartrate 5 mg oral tablet (3 sources) Opioid Agonist Start: 10-22-2022 End: 09-04-2023 take 1 tablet by mouth four times daily as needed HYDROcodone-acetam inophen ([place]) 5-325 MG tablet Take 1 tablet by mouth 4 (four) times a day as needed. 0 10/22/2022 09/04/2023 Discontinued (Therapy completed) aspirin 325 mg oral tablet (2 sources) Platelet Aggregation Inhibitor, Nonsteroidal Anti-inflammatory Drug take 1 tablet by mouth in the morning aspirin 325 MG tablet Take 325 mg by mouth in the morning. 0 Active atenolol 50 mg / chlorthalidone 25 mg oral tablet (1 source) Thiazide-like Diuretic, beta-Adrenergic Cayla Start: 09-09-2020 take 0.5 tablet by mouth once daily atenoloL-chlorthal idone (TENORETIC) 50-25 mg per tablet Take 0.5 tablets by mouth once daily. 0 09/09/2020 Active atorvastatin 10 mg oral tablet (6 sources) HMG-CoA Reductase Inhibitor Start: 09-04-2023 take 1 tablet by mouth in the morning atorvastatin (Lipitor) 10 MG tablet Indications: Dyslipidemia (CMS/HCC) Take 1 tablet (10 mg) by mouth in the morning. 90 tablet 0 09/04/2023 Active Start: 09-04-2023 take 1 tablet by joe th in the morning atorvastatin (Lipitor) 10 MG tablet Indications: Dyslipidemia (CMS/HCC) Take 1 tablet (10 mg) by mouth in the morning. 90 tablet 0 09/04/2023 Active Start: 09-22-2020 End: 09-04-2023 take 1 tablet by mouth once daily in the morning atorvastatin (Lipitor) 10 MG tablet Indications: Dyslipidemia (CMS/HCC) TAKE 1 TABLET BY MOUTH EVERY DAY IN THE MORNING 90 tablet 0 06/10/2023 09/04/2023 Discontinued (Reorder) calcium carb,gluc/mag ox,gluc (CALCIUM MAGNESIUM ORAL) (1 source) take 1 tablet by mouth once daily calcium carb,gluc/mag ox,gluc (CALCIUM MAGNESIUM ORAL) Take 1 tablet by mouth daily. 0 Active calcium carbonate 500 mg oral tablet (3 sources) calcium carbonat e (Os-King) 1250 (500 Ca) MG tablet every 12 (twelve) hours. 0 Active FLUoxetine 20 mg oral capsule (1 source) Serotonin Reuptake Inhibitor Start: take 1 capsule by mouth once daily FLUoxetine (PROzac) 20 mg capsule Take 1 capsule by mouth daily. 0 11/07/2020 Active gabapentin 600 mg oral tablet (4 sources) Anti-epileptic Agent Start: gabapentin (Neurontin) 600 MG tablet Indications: Neuralgia TABLET 1/2 TABLET BY MOUTH TWICE A DAY AND TAKE 1 TABLET BY MOUTH EVERY DAY AT BEDTIME 180 tablet 3 06/04/2023 Active hydroCHLOROthiazide 12.5 mg / losartan potassium 50 mg oral tablet (3 sources) Thiazide Diuretic, Angiotensin 2 Receptor Cayla take 1 tablet by mouth in the morning losartan-hydroCHLOR Othiazide (Hyzaar) 50-12.5 MG tablet Take 1 tablet by mouth in the morning and 1 tablet before bedtime. 0 Active meloxicam 15 mg oral tablet (4 sources) Nonsteroidal Anti-inflammatory Drug Start: 021 take 1 tablet by mouth once daily meloxicam (Mobic) 15 MG tablet Indications: Inflammatory and toxic neuropathy (CMS/HCC) , Neurogenic pain TAKE 1 TABLET BY MOUTH EVERY DAY 60 tablet 2 04/16/2023 Active multivitamin (THERAGRAN) tablet (1 source) take 1 tablet by mouth once daily multivitamin (THERAGRAN) tablet Take 1 tablet by mouth daily. 0 Active mv-mn/iron/folic acid/herb 190 (VITAMIN D3 COMPLETE ORAL) (1 source) take 1 tablet by mouth once daily mv-mn/iron/folic acid/herb 190 (VITAMIN D3 COMPLETE ORAL) Take 1 tablet by mouth daily. 0 Active omeprazole 40 mg delayed release oral capsule (1 source) Proton Pump Inhibitor Start: 021 take 1 capsule by mouth twice daily omeprazole (PriLOSEC) 40 mg capsule Take 1 capsule by mouth 2 (two) times a day. 0 11/07/2020 Active rOPINIRole 0.5 mg oral tablet (4 sources) Nonergot Dopamine Agonist Start: 023 take 2 tablets by mouth in the morning rOPINIRole (Requip) 0.5 MG tablet Indications: Restless legs syndrome (RLS) TAKE 2 TABLETS BY MOUTH IN THE MORNING AND TAKE 2 TABLETS AT BEDTIME 360 tablet 1 06/17/2023 Active Start: 09-09-2020 take 1 tablet by joe th at bedtime rOPINIRole (REQUIP) 0.25 mg tablet TAKE 1 TABLET BY MOUTH 1 TO 3 HOURS BEFORE BEDTIME 0 09/09/2020 Active traMADol hydrochloride 50 mg oral tablet (4 sources) Opioid Agonist Start: 11-16-2020 take 1 tablet by mouth once daily as needed traMADoL (ULTRAM) 50 mg tablet Take 1 tablet by mouth daily as needed. 0 11/16/2020 Active take 1 tablet by joe th every six hours as needed traMADol (Ultram) 50 MG tablet 1 TABLET NEEDED ORALLY EVERY 6 HOURS 14 DAYS 0 Active Problems Active Problems Problem Classification Problem Date Documented Da te Episodic/Chronic Acquired foot deformities (4 sources) Other hammer toe(s) (acquired), right foot; Translations: [Acquired hallux malleus] Onset: 2022 03-12-2023 Chronic Anxiety disorders (4 sources) Anxiety disorder, unspecified; Translations: [Anxiety] Onset: 2022 03-12-2023 Chronic Chronic ulcer of skin (20 sources) Non-pressure chronic ulcer of other part of right foot with fat layer exposed; Translations: [Non-pressure chronic ulcer of other part of right foot with necrosis of bone] Onset: 01-11-2022 Chronic Diabetes mellitus with complications (1 source) Type 2 diabetes mellitus with foot ulcer; Translations: [TYPE 2 DM W/FOOT ULCER] Onset: 10-19-2022 Chronic Disorders of lipid metabolism (10 sources) Hyperlipidemia, unspecified; Translations: [Dyslipidemia] Onset: 08-22-2009 Chronic Diverticulosis and diverticulitis (1 source) Diverticulosis of intestine, part unspecified, without perforation or abscess without bleeding; Translations: [Diverticulosis of intestine, part unspecified, without perforation or abscess without bleeding] Onset: 12-19-2023 Chronic Esophageal disorders (4 sources) Gastro-esophageal reflux disease without esophagitis; Translations: [Laryngopharyngeal reflux] Onset: 2022 03-12-2023 Chronic Essential hypertension (6 sources) Essential (primary) hypertension; Translations: [Essential hypertension] Onset: 2022 03-09-2023 Chronic Genitourinary symptoms and ill-defined conditions (2 sources) Increased frequency of urination; Translations: [Frequency of micturition] 09-04-2023 Episodic Infective arthritis and osteomyelitis (except that caused by tuberculosis or sexually transmitted disease) (3 sources) Other osteomyelitis, lower leg; Translations: [Other acute osteomyelitis, right ankle and foot] Onset: 06-28-2022 Chronic Menopausal disorders (3 sources) Decreased estrogen level; Translations: [Other primary ovarian failure] Onset: 03-12-2023 03-12-2023 Chronic Osteoarthritis (19 sources) Primary osteoarthritis, right shoulder; Translations: [Arthritis of shoulder region joint] Onset: 08-22-2009 03-12-2023 Chronic Other acquired deformities (1 source) Contracture, right ankle; Translations: [CONTRACTURE RIGHT ANKLE] Onset: 2022 Chronic Other acquired deformities (3 sources) Equinus contracture of the ankle; Translations: [Contracture, right ankle] Onset: 03-12-2023 03-12-2023 Chronic Other aftercare (1 source) Other group home (current) drug therapy; Translations: [OTH HALF-WAY CURRENT DRUG THERAPY] Onset: 10-31-2022 Episodic Other connective tissue disease (1 source) Arthrodesis status; Translations: [ARTHRODESIS STATUS] Onset: 10-31-2022 Episodic Other connective tissue disease (4 sources) Pain in right foot; Translations: [PAIN IN RIGHT FOOT] Onset: 10-09-2022 Episodic Other gastrointestinal disorders (2 sources) Constipation, unspecified; Translations: [Constipation, unspecified] Onset: 11-28-2023 Episodic Other gastrointestinal disorders (3 sources) Change in bowel habit; Translations: [Change in bowel habit] Onset: 11-28-2023 Episodic Other gastrointestinal disorders (1 source) Constipation Onset: 11-28-2023 Episodic Other hereditary and degenerative nervous system conditions (5 sources) Restless legs syndrome; Translations: [RESTLESS LEGS SYNDROME] Onset: 06-01-2022 Chronic Other hereditary and degenerative nervous system conditions (3 sources) Restless legs; Translations: [Restless legs syndrome] Onset: 03-12-2023 03-12-2023 Chronic Other nervous system disorders (1 source) Other chronic pain; Translations: [OTHER CHRONIC PAIN] Onset: 2022 Chronic Other nervous system disorders (5 sources) Polyneuropathy, unspecified; Translations: [POLYNEUROPATHY UNSPECIFIED] Onset: 03-23-2022 Chronic Other nervous system disorders (3 sources) Hereditary motor and sensory neuropathy; Translations: [Hereditary motor and sensory neuropathy] Onset: 03-12-2023 03-12-2023 Chronic Other nervous system disorders (3 sources) Inflammatory and toxic neuropathy; Translations: [Polyneuropathy due to other toxic agents] Onset: 03-12-2023 03-12-2023 Chronic Other nervous system disorders (3 sources) Chronic pain; Translations: [Other chronic pain] Onset: 03-12-2023 03-12-2023 Chronic Other nervous system disorders (1 source) Right-sided piriformis syndrome; Translations: [Lesion of sciatic nerve, right lower limb] Onset: 10-31-2021 10-31-2021 Chronic Other non-traumatic joint disorders (1 source) Charcot's joint, right ankle and foot; Translations: [CHARCOTS JOINT RIGHT ANKLE AND F] Onset: 2022 Chronic Other non-traumatic joint disorders (1 source) Other specified arthritis, unspecified site; Translations: [OTHER SPECIFIED ARTHRITIS UNS SITE] Onset: 2022 Chronic Other non-traumatic joint disorders (6 sources) Charcot's arthropathy; Translations: [Charcot's joint, unspecified site] Onset: 03-12-2023 03-12-2023 Chronic Other non-traumatic joint disorders (3 sources) Polyarthropathy; Translations: [Polyarthritis, unspecified] Onset: 03-12-2023 03-12-2023 Chronic Other nutritional; endocrine; and metabolic disorders (3 sources) Xanthomatosis; Translations: [Other lipid storage disorders] Onset: 03-12-2023 03-12-2023 Chronic Other skin disorders (5 sources) Nail dystrophy; Translations: [NAIL DYSTROPHY] Onset: 06-19-2022 Episodic Residual codes; unclassified (1 source) Localized edema; Translations: [LOCALIZED EDEMA] Onset: 2022 Episodic Screening and history of mental health and substance abuse codes (1 source) Personal history of nicotine dependence; Translations: [PERSONAL HISTORY OF NICOTINE DEPEND] Onset: 10-31-2022 Episodic Septicemia (except in labor) (1 source) Sepsis, unspecified organism; Translations: [Sepsis, unspecified organism] Onset: 10-26-2023 Episodic Skin and subcutaneous tissue infections (5 sources) Cellulitis of right lower limb; Translations: [Cellulitis of left lower limb] Onset: 07-27-2022 Episodic Spondylosis; intervertebral disc disorders; other back problems (7 sources) Degeneration of lumbar intervertebral disc; Translations: [Other intervertebral disc degeneration, lumbar region] Onset: 11-30-2020 03-12-2023 Chronic Transient cerebral ischemia (2 sources) Transient cerebral ischemia; Translations: [Transient cerebral ischemic attack, unspecified] 09-04-2023 Chronic Unclassified (1 source) CONTACT W/AND (SUSP) EXPOS COVID-19; Translations: [CONTACT W/AND (SUSP) EXPOS COVID-19] Onset: 05-09-2022 Unclassified (1 source) change in bowel habits, constipation Onset: 12-19-2023 Past or Other Problems Problem Classification Problem Date Documented Date Episodic/Chronic Acquired foot deformities (1 source) Other acquired deformities of right foot; Translations: [OTHER ACQUIRED DEFORMITIES RT FOOT] Onset: 2 Episodic Allergic reactions (3 sources) Actinic cheilitis; Translations: [Other specified acute skin changes due to ultraviolet radiation] Onset: 3 03-12-2023 Episodic Deficiency and other anemia (1 source) Anemia, unspecified; Translations: [ANEMIA UNSPECIFIED] Onset: 2 Episodic Fluid and electrolyte disorders (2 sources) Hypo-osmolality and hyponatremia; Translations: [Hypokalemia] Onset: 2 Episodic Immunizations and screening for infectious disease (4 sources) Other specified abnormal immunological findings in serum; Translations: [Rheumatoid factor positive] Onset: 3 03-12-2023 Episodic Other bone disease and musculoskeletal deformities (3 sources) Osteopenia; Translations: [Other specified disorders of bone density and structure, multiple sites] Onset: 3 03-12-2023 Episodic Other connective tissue disease (3 sources) Spasm of cervical paraspinous muscle; Translations: [Other muscle spasm] Onset: 3 03-12-2023 Episodic Other connective tissue disease (3 sources) Impingement syndrome of right shoulder region; Translations: [Impingement syndrome of right shoulder] Onset: 3 03-12-2023 Episodic Other connective tissue disease (3 sources) Muscle atrophy; Translations: [Muscle wasting and atrophy, not elsewhere classified, unspecified site] Onset: 3 03-12-2023 Episodic Other connective tissue disease (3 sources) Neurogenic pain; Translations: [Neuralgia and neuritis, unspecified] Onset: 3 03-12-2023 Episodic Other gastrointestinal disorders (3 sources) Dysphagia; Translations: [Dysphagia, pharyngoesophageal phase] Onset: 3 03-12-2023 Episodic Other screening for suspected conditions (not mental disorders or infectious disease) (3 sources) Blood chemistry abnormal; Translations: [Abnormal finding of blood chemistry, unspecified] Onset: 3 03-12-2023 Episodic Other skin disorders (1 source) Corns and callosities; Translations: [CORNS AND CALLOSITIES] Onset: 2 Episodic Spondylosis; intervertebral disc disorders; other back problems (14 sources) Sciatica; Translations: [Sciatica, left side] Onset: 1 03-12-2023 Episodic Results Test Name Value Interpretation Reference Range Facility CT COLONOGRAPHY SCREENINGon 01-21-[address] COLONOGRAPHY SCREENING CLINICAL INFORMATION: Constipation, unspecified constipation type; Change in bowel habits. Incomplete colonoscopy due to severe sigmoid diverticulosis. TECHNIQUE: Standard colonoscopy bowel preparation was utilized as well as barium and iodine fecal tagging the day before the exam. Prone and supine images were obtained on a multislice & multidetector CT scanner. In addition, 3-D virtual colonoscopy reformatted images were constructed under concurrent physician supervision on an independent workstation. Three qualifiers for a polyp are: 1) Morphology. 2) Density. 3) Mobility. Lesions less than [address] scans at this facility use dose modulation, iterative reconstruction, and/or weight based dosing when appropriate to reduce radiation dose to as low as reasonably achievable. COMPARISON: Colonoscopy 12/19/2023. FINDINGS: EXTRACOLONIC CT FINDINGS: No significant findings COLONIC FINDINGS: Mild diverticulosis with scattered diverticula throughout the colon with more severe changes of chronic diverticulosis involving the sigmoid colon. Despite prone and supine imaging, short segment of mid sigmoid colon remained incompletely distended with moderate concentric bowel wall thickening over a length of approximately 5 cm. The remainder the colon is adequately distended without persistent filling defects or strictures. Terminal ileum within normal limits. Note: CT colonography is not intended for the detection of isolated diminutive colonic polyps (i.e., tiny polyps <= 5 mm), the presence or absence of which will not roving changer of the patient. In addition, digital rectal exam (TALITA) is recommended in conjunction with CTC to complete evaluation of the anorectal region. In our continued development of CT colonography, knowledge of the results of others studies is extremely helpful. If this patient undergoes any further investigation, a copy of the results would be greatly appreciated. IMPRESSION: * Changes of severe chronic diverticulosis most significant in the mid sigmoid colon, short segment of concentric bowel wall thickening incompletely characterized. If indicated, PET/CT could be considered for further evaluation. * Throughout the remainder the colon, mild diverticulosis without persistent filling defects or strictures. C-RADS: C0. INADEQUATE STUDY/AWAITING PRIOR COMPARISONS: -Inadequate prep: Cannot exclude lesions equal or > 10 mm owing to presence of fluid/feces. -Inadequate insufflation: One or more colonic segments collapsed on both views. -Awaiting prior colon studies for comparison. Finalized by Tariq Curry MD on 01/21/2024 8:17 AM Normal [facility] Cult,Bloodon 10-31-2023 Cult,Blood Specimen Description .BLOOD Special Requests 20ML RAC Culture NO GROWTH 5 DAYS Report Status FINAL 10/31/2023 Normal [facility] Comment on above: Performed By: #### B C #### [facility] [address] [place], [place] [id number] Md Allergy Immunology: Ayden Regan MD Cult,Blood Specimen Description .BLOOD Special Requests 20ML LFT WRIST Culture NO GROWTH 5 DAYS Report Status FINAL 10/31/2023 [facility] Comment on above: Performed By: #### B C #### [address] [place], [place] [id number] Md Allergy Immunology: Ayden Regan MD CBC with Diffon 10-27-2023 Abs. Basophil 0.03 k/uL Normal 0.00-0.[address] [facility] Comment on above: Performed By: #### L ACDS #### [address] [place], [place] [id number] Md Allergy Immunology: Ayden Regan MD Abs.Imm.Granulocyte 0.03 k/uL Normal 0.00-0.30 [facility] Comment on above: Performed By: #### L ACDS #### [address] [place] [address] Md Allergy Immunology: Ayden Regan MD Abs.Neutrophil (Seg) 7.25 k/uL Normal 1.50-8.10 [facility] Comment on above: Performed By: #### L ACDS #### [address] [place], [place] [id number] Md Allergy Immunology: Ayden Regan MD Basophils/100 WBC (Bld) 0 % Normal 0-2 [facility] Comment on above: Performed By: #### L ACDS #### [address] [place], [place] [id number] Md Allergy Immunology: Ayden Regan MD Eosinophils (Bld) [#/Vol] 0.04 10*3/uL Normal 0.00-0.44 [facility] Comment on above: Performed By: #### L ACDS #### [address] [place], [id number] Md Allergy Immunology: Ayden Regan MD Eosinophils/100 WBC (Bld) 0 % Low 1-4 [facility] [facility] Comment on above: Performed By: #### L ACDS #### [address] [place], [facility]83 Md Allergy Immunology: Ayden Regan MD Erythrocyte distribution width (RBC) [Ratio] 12.5 % Normal 11.8-14.4 [facility] Comment on above: Performed By: #### L ACDS #### [address] [place], [place] [id number] Md Allergy Immunology: Ayden Regan MD Hematocrit (Bld) [Volume fraction] 29.2 % Low 36.3-47.1 [facility] Comment on above: Performed By: #### L ACDS #### [address] [place], [facility]83 Md Allergy Immunology: Ayden Regan MD Hemoglobin (Bld) [Mass/Vol] 9.7 g/dL Low 11.9-15.1 [facility] Comment on above: Performed By: #### L ACDS #### [address] [place] [address] Md Allergy Immunology: Ayden Regan MD Immature granulocytes/100 WBC (Bld) 0 % Normal 0 [facility] Comment on above: Performed By: #### L ACDS #### [address] [place] [address] Md Allergy Immunology: Ayden Regan MD Lymphocytes (Bld) [#/Vol] 1.83 10*3/uL Normal 1.10-3.70 [facility] Comment on above: Performed By: #### L ACDS #### [facility] [address] [place] [address] Md Allergy Immunology: Ayden Regan MD Lymphocytes/100 WBC (Bld) 18 % Low 24-43 [facility] Comment on above: Performed By: #### L ACDS #### [facility] [address] [place], [place] [id number] Md Allergy Immunology: Ayden Regan MD MCH (RBC) [Entitic mass] 30.1 pg Normal 25.2-33.5 [facility] Comment on above: Performed By: #### L ACDS #### [address] [place], [place] [id number] Md Allergy Immunology: Ayden Regan MD MCHC (RBC) [Mass/Vol] 33.2 g/dL Normal 28.4-34.8 [facility] Comment on above: Performed By: #### L ACDS #### [address] [place], [place] [id number] Md Allergy Immunology: Ayden Regan MD MCV (RBC) [Entitic vol] 90.7 fL Normal 82.6-102.9 [facility] Comment on above: Performed By: #### L ACDS #### [facility] [address] [place] [address] [place] [address] Md Allergy Immunology: Ayden Regan MD Monocytes (Bld) [#/Vol] 1.02 10*3/uL Normal 0.10-1.20 [facility] Comment on above: Performed By: #### L ACDS #### [address] [place] [address] Md Allergy Immunology: Ayden Regan MD Monocytes/100 WBC (Bld) 10 % Normal 3-12 [facility] Comment on above: Performed By: #### L ACDS #### [facility] [address] [place] [address] Md Allergy Immunology: Ayden Regan MD Neutrophil (Seg) 71 % High 36-65 [facility] Comment on above: Performed By: #### L ACDS #### [facility] [address] [place], [place] [address]83 Md Allergy Immunology: Ayden Regan MD NRBC Automated 0.0 per 100 WBC Normal 0.0 [facility] Comment on above: Performed By: #### L ACDS #### [facility] [address] [place], [place] [id number] Md Allergy Immunology: Ayden Regan MD Platelet mean volume (Bld) [Entitic vol] 8.7 fL Normal 8.1-13.5 [facility] Comment on above: Performed By: #### L ACDS #### [address] [place], [place] [id number] Md Allergy Immunology: Ayden Regan MD Platelets (Bld) [#/Vol] 237 10*3/uL Normal 138-453 [facility] Comment on above: Performed By: #### L ACDS #### [facility] [address] [place] [address] Dr[place], [place] [id number] Md Allergy Immunology: Ayden Regan MD RBC (Bld) [#/Vol] 3.22 10*6/uL Low 3.95-5.11 [facility] Comment on above: Performed By: #### L ACDS #### [facility] [address] [place] [address] [place] [address] Md Allergy Immunology: Ayden Regan MD WBC (Bld) [#/Vol] 10.2 10*3/uL Normal 3.5-11.3 [facility] Comment on above: Performed By: #### L ACDS #### [facility] [address] [place], [place] [address]3783 Md Allergy Immunology: Ayden Regan MD Comp Metabolic Pr/rfx MGon 0 - Albumin [Mass/Vol] 3.1 g/dL Low 3.5-5.2 [facility] Comment on above: Performed By: #### L ACDS #### [facility] [address] [place], [place] [id number] Md Allergy Immunology: Ayden Regan MD Albumin/Glob Ratio 1.3 Normal 1.0-2.5 [facility] Comment on above: Performed By: #### L ACDS #### [facility] [address] [place], [place] 9942983 Md Allergy Immunology: Ayden Regan MD Alkaline Phos 80 U/L Normal 35-[address] [facility] Comment on above: Performed By: #### L ACDS #### [facility] [address] [place], [place] 5243083 Md Allergy Immunology: Ayden Regan MD ALT [Catalytic activity/Vol] 9 U/L Normal 5-33 [facility] Comment on above: Performed By: #### L ACDS #### [facility] [address] [place], [place] 6571483 Md Allergy Immunology: Ayden Regan MD Anion gap [Moles/Vol] 8 mmol/L Low 9-17 [facility] Comment on above: Performed By: #### L ACDS #### [facility] [address] [place], [place] 315[address]83 Md Allergy Immunology: Ayden eRgan MD AST [Catalytic activity/Vol] 13 U/L Normal <32 [facility] Comment on above: Performed By: #### L ACDS #### [facility] [address] [place], [place] 5804983 Md Allergy Immunology: Ayden Regan MD Bilirubin [Mass/Vol] 0.6 mg/dL Normal 0.3-1.2 [facility] Comment on above: Performed By: #### L ACDS #### [facility] [address] [place], [place] [address] Md Allergy Immunology: Ayden Regan MD BUN/CRE Ratio 16 Normal 9-[address] [facility] Comment on above: Performed By: #### L ACDS #### [facility] [address] [place], [place] 9276283 Md Allergy Immunology: Ayden Regan MD Calcium [Mass/Vol] 8.2 mg/dL Low 8.6-10.4 [facility] Comment on above: Performed By: #### L ACDS #### [facility] [address] [place], [place] [id number] Md Allergy Immunology: Ayden Regan MD Chloride [Moles/Vol] 106 mmol/L Normal 98-107 [facility] Comment on above: Performed By: #### L ACDS #### [facility] [address] [place] [address] Md Allergy Immunology: Ayden Regan MD CO2 [Moles/Vol] 26 mmol/L Normal 20-31 [facility] Comment on above: Performed By: #### L ACDS #### [facility] [address] [place], [place] 1634483 Md Allergy Immunology: Ayden Regan MD Creatinine [Mass/Vol] 0.7 mg/dL Normal 0.5-0.9 [facility] Comment on above: Performed By: #### L ACDS #### [facility] [address] [place] [address] Md Allergy Immunology: Ayden Regan MD GFR/1.73 sq M.predicted among non-blacks MDRD (S/P/Bld) [Vol rate/Area] mL/min/{1.73_m2} Normal >60 [facility] Comment on above: Result Comment: These results are not intended for use in patients <18 years of age. eGFR results are calculated without a race factor using the 2020 CKD-EPI equation. Careful clinical correlation is recommended, particularly when comparing to results calculated using previous equations. The CKD-EPI equation is less accurate in patients with extremes of muscle mass, extra-renal metabolism of creatine, excessive creatine ingestion, or following therapy that affects renal tubular secretion. Performed By: #### L ACDS #### [facility] [address] [place], [place] [id number] Md Allergy Immunology: Ayden Regan MD Glucose [Mass/Vol] 97 mg/dL Normal 70-99 [facility] Comment on above: Performed By: #### L ACDS #### [facility] [address] [place], [place] 5202883 Md Allergy Immunology: Ayden Regan MD Potassium [Moles/Vol] 3.6 mmol/L Low 3.7-5.3 [facility] Comment on above: Performed By: #### L ACDS #### [facility] [address] [place] [address] Md Allergy Immunology: Ayden Regan MD Protein [Mass/Vol] 5.4 g/dL Low 6.4-8.3 [facility] Comment on above: Performed By: #### L ACDS #### [facility] [address] [place] [address] Md Allergy Immunology: Ayden Regan MD Sodium [Moles/Vol] 140 mmol/L Normal 135-144 [facility] Comment on above: Performed By: #### L ACDS #### [facility] [address] [place], [place] 2063983 Md Allergy Immunology: Ayden Regan MD Urea nitrogen [Mass/Vol] 11 mg/dL Normal 8-23 [facility] Comment on above: Performed By: #### L ACDS #### [facility] [address] [place] [address] Md Allergy Immunology: Ayden Regan MD Cult,Urineon 10-27-2023 Cult,Urine Specimen Description .URINE,STRAIGHT CATHETER Culture STREPTOCOCCI, BETA HEMOLYTIC GROUP B 10 to 50,000 CFU/ML Report Status FINAL 10/27/2023 Normal [facility] Comment on above: Performed By: #### U RC #### [facility] [address] [place], [place] 115[address] Md Allergy Immunology: Nahum Nixon MD [facility] [address] [place] [address] Md Allergy Immunology: Ayden Regan MD Procalcitoninon 10-27-2023 Procalcitonin 0.06 ng/mL Normal 0.00-0.[address] [facility] Comment on above: Result Comment: Suspected Sepsis: <0.50 ng/mL Low likelihood of sepsis. 0.50-2.00 ng/mL Increased likelihood of sepsis. Antibiotics encouraged. >2.00 ng/mL High risk of sepsis/shock. Antibiotics strongly encouraged. Suspected Lower Resp Tract Infections: <0.24 ng/mL Low likelihood of bacterial infection. >0.24 ng/mL Increased likelihood of bacterial infection. Antibiotics encouraged. With successful antibiotic therapy, PCT levels should decrease rapidly. (Half-life of 24 to 36 hours.) Procalcitonin values from samples collected within the first 6 hours of systemic infection may still be low. Retesting may be indicated. Values from day 1 and day 4 can be entered into the Change in Procalcitonin Calculator ([email or web address]) to determine the patient's Mortality Risk Prognosis In healthy neonates, plasma Procalcitonin (PCT) concentrations increase gradually after , reaching peak values at about 24 hours of age then decrease to normal values below 0.5 ng/mL by 48-72 hours of age. Performed By: #### P RCAL #### [facility] [address] [place], [place] [address]336[address] Md Allergy Immunology: Nahum Nixon MD CBC with Diffon 10-26-2023 Abs. Basophil 0.04 k/uL Normal 0.00-0.[address] [facility] Comment on above: Performed By: #### BRETT ALMANZA, CP #### [address] [place], [place] [address] Md Allergy Immunology: Ayden Regan MD Abs.Imm.Granulocyte 0.04 k/uL Normal 0.00-0.30 [facility] Comment on above: Performed By: #### BRETT ALMANZA, CP #### [address] [place], [place] [address] Md Allergy Immunology: Ayden Regan MD Abs.Neutrophil (Seg) 9.87 k/uL High 1.50-8.10 [facility] Comment on above: Performed By: #### BRETT ALMANZA, CP #### [address] [place], [place] [address] Md Allergy Immunology: Ayden Regan MD Basophils/100 WBC (Bld) 0 % Normal 0-2 [facility] Comment on above: Performed By: #### BRETT ALMANZA, CP #### [address] [place], [place] [address] Md Allergy Immunology: Ayden Regan MD Eosinophils (Bld) [#/Vol] 0.06 10*3/uL Normal 0.00-0.44 [facility] Comment on above: Performed By: #### BRETT ALMANZA, CP #### [address] [place], [place] [address] Md Allergy Immunology: yAden Regan MD Eosinophils/100 WBC (Bld) 1 % Normal 1-4 [facility] Comment on above: Performed By: #### BRETT ALMANZA, CP #### [address] [place], [facility]83 Md Allergy Immunology: Ayden Regan MD Erythrocyte distribution width (RBC) [Ratio] 12.1 % Normal 11.8-14.4 [facility] Comment on above: Performed By: #### BRETT ALMANZA, CP #### [facility] [address] [place] [address] Dr[place], [place] 8005083 Md Allergy Immunology: Ayden Regan MD Hematocrit (Bld) [Volume fraction] 37.2 % Normal 36.3-47.1 [facility] Comment on above: Performed By: #### BRETT ALMANZA, CP #### [address] [place], [facility]83 Md Allergy Immunology: Ayden Regan MD Hemoglobin (Bld) [Mass/Vol] 12.6 g/dL Normal 11.9-15.1 [facility] Comment on above: Performed By: #### BRETT ALMANZA, CP #### [address] [place] [id number] Md Allergy Immunology: Ayden Regan MD Immature granulocytes/100 WBC (Bld) 0 % Normal 0 [facility] Comment on above: Performed By: #### BRETT ALMANZA, CP #### [address] [place], [facility]83 Md Allergy Immunology: Ayden Regan MD Lymphocytes (Bld) [#/Vol] 0.81 10*3/uL Low 1.10-3.70 [facility] Comment on above: Performed By: #### BRETT ALMANZA, CP #### [address] [place], [place] [address] Md Allergy Immunology: Ayden Regan MD Lymphocytes/100 WBC (Bld) 7 % Low 24-43 [facility] Comment on above: Performed By: #### BRETT ALMANZA, CP #### [address] [place] [id number] Md Allergy Immunology: Ayedn Regan MD MCH (RBC) [Entitic mass] 30.4 pg Normal 25.2-33.5 [facility] Comment on above: Performed By: #### BRETT ALMANZA, CP #### [facility] [address] [place] [address] Dr. [place], [place] 1424383 Md Allergy Immunology: Ayden Regan MD MCHC (RBC) [Mass/Vol] 33.9 g/dL Normal 28.4-34.8 [facility] Comment on above: Performed By: #### BRETT ALMANZA, CP #### [address] [place], [facility]83 Md Allergy Immunology: Ayden Regan MD MCV (RBC) [Entitic vol] 89.9 fL Normal 82.6-102.9 [facility] Comment on above: Performed By: #### BRETT ALMANZA, CP #### [address] [place], [facility]83 Md Allergy Immunology: Ayden Regan MD Monocytes (Bld) [#/Vol] 0.89 10*3/uL Normal 0.10-1.20 [facility] Comment on above: Performed By: #### BRETT ALMANZA, CP #### [address] [place], [facility]83 Md Allergy Immunology: Ayden Regan MD Monocytes/100 WBC (Bld) 8 % Normal 3-12 [facility] Comment on above: Performed By: #### BRETT ALMANZA, CP #### [address] [place], [facility]83 Md Allergy Immunology: Ayden Regan MD Neutrophil (Seg) 84 % High 36-65 [facility] Comment on above: Performed By: #### BRETT ALMANZA, CP #### [address] [place], [facility]83 Md Allergy Immunology: Ayden Regan MD NRBC Automated 0.0 per 100 WBC Normal 0.0 [facility] Comment on above: Performed By: #### BRETT ALMANZA, CP #### [address] [place], [facility]83 Md Allergy Immunology: Ayden Regan MD Platelet mean volume (Bld) [Entitic vol] 8.5 fL Normal 8.1-13.5 [facility] Comment on above: Performed By: #### T BRETT MELENDEZ, CP #### [facility] [address] [place] [address] Md Allergy Immunology: Ayden Regan MD Platelets (Bld) [#/Vol] 312 10*3/uL Normal 138-453 [facility] Comment on above: Performed By: #### T BRETT MELENDEZ, CP #### [facility] [address] [place] [address] Md Allergy Immunology: Ayden Regan MD RBC (Bld) [#/Vol] 4.14 10*6/uL Normal 3.95-5.11 [facility] Comment on above: Performed By: #### T BRETT MELENDEZ, CP #### [facility] [address] [place], [place] [id number] Md Allergy Immunology: Ayden Regan MD WBC (Bld) [#/Vol] 11.7 10*3/uL High 3.5-11.3 [facility] Comment on above: Performed By: #### BRETT ALMANZA, CP #### [address] [place] [address] Md Allergy Immunology: Ayden Regan MD CT HEAD WO CONTRASTon 2023 CT HEAD WO CONTRAST EXAMINATION: CT OF THE HEAD WITHOUT CONTRAST 10/26/2023 2:58 pm TECHNIQUE: CT of the head was performed without the administration of intravenous contrast. Automated exposure control, iterative reconstruction, and/or weight based adjustment of the mA/kV was utilized to reduce the radiation dose to as low as reasonably achievable. COMPARISON: None. HISTORY: ORDERING SYSTEM PROVIDED HISTORY: altered mental status TECHNOLOGIST PROVIDED HISTORY: altered mental status Decision Support Exception - unselect if not a suspected or confirmed emergency medical condition->Emergency Medical Condition (MA) FINDINGS: BRAIN/VENTRICLES: There is no acute intracranial hemorrhage, mass effect or midline shift. No abnormal extra-axial fluid collection. The rodriguez-white differentiation is maintained without evidence of an acute infarct. There is no evidence of hydrocephalus. ORBITS: The visualized portion of the orbits demonstrate no acute abnormality. SINUSES: The visualized paranasal sinuses and mastoid air cells demonstrate no acute abnormality. SOFT TISSUES/SKULL: No acute abnormality of the visualized skull or soft tissues. IMPRESSION: No acute intracranial findings. Interpreted by: Seven Moreno MD Signed by: Seven Moreno MD 10/26/23 Final result Normal [facility] Comp Metabolic Profon 2023 Albumin [Mass/Vol] 3.9 g/dL Normal 3.5-5.2 [facility] Comment on above: Performed By: #### T BRETT MELENDEZ, CP #### [facility] [address] [place] [address] [place] [address] Md Allergy Immunology: Ayden Regan MD Albumin/Glob Ratio 1.2 Normal 1.0-2.5 [facility] Comment on above: Performed By: #### T BRETT MELENDEZ, CP #### [facility] [address] [place], [place] [id number] Md Allergy Immunology: Ayden Regan MD Alkaline Phos 87 U/L Normal 35-[address] [facility] Comment on above: Performed By: #### T BRETT MELENDEZ, CP #### [address] [place] [address] Md Allergy Immunology: Ayden Regan MD ALT [Catalytic activity/Vol] 12 U/L Normal 5-33 [facility] Comment on above: Performed By: #### T BRETT MELENDEZ, CP #### [facility] [address] [place], [place] [address]383 Md Allergy Immunology: Ayden Regan MD Anion gap [Moles/Vol] 9 mmol/L Normal 9-17 [facility] Comment on above: Performed By: #### BRETT ALMANZA, CP #### [facility] [address] [place], [place] 615[address]83 Md Allergy Immunology: Ayden Regan MD AST [Catalytic activity/Vol] 15 U/L Normal <32 [facility] Comment on above: Performed By: #### T BRETT MELENDEZ, CP #### [facility] [address] [place], [place] 530[address]83 Md Allergy Immunology: Ayden Regan MD Bilirubin [Mass/Vol] 0.4 mg/dL Normal 0.3-1.2 [facility] Comment on above: Performed By: #### T BRETT MELENDEZ, CP #### [facility] [address] [place], [place] 460[address]83 Md Allergy Immunology: Ayden Regan MD BUN/CRE Ratio 16 Normal 9-[address] [facility] Comment on above: Performed By: #### BRETT ALMANZA, CP #### [facility] [address] [place], [place] 489[address]83 Md Allergy Immunology: Ayden Regan MD Calcium [Mass/Vol] 9.2 mg/dL Normal 8.6-10.4 [facility] Comment on above: Performed By: #### T BRETT MELENDEZ, CP #### [facility] [address] [place] [address] [place], [place] [id number] Md Allergy Immunology: Ayden Regan MD Chloride [Moles/Vol] 95 mmol/L Low 98-107 [facility] Comment on above: Performed By: #### T BRETT MELENDEZ, CP #### [facility] [address] [place], [place] 376[address]83 Md Allergy Immunology: Ayden Regan MD CO2 [Moles/Vol] 26 mmol/L Normal 20-31 [facility] Comment on above: Performed By: #### T BRETT MELENDEZ, CP #### [facility] [address] [place] [address] Md Allergy Immunology: Ayden Regan MD Creatinine [Mass/Vol] 0.8 mg/dL Normal 0.5-0.9 [facility] Comment on above: Performed By: #### T BRETT MELENDEZ, CP #### [facility] [address] [place] [address] Md Allergy Immunology: Ayden Regan MD GFR/1.73 sq M.predicted among non-blacks MDRD (S/P/Bld) [Vol rate/Area] 77 mL/min/{1.73_m2} Normal >60 [facility] Comment on above: Result Comment: These results are not intended for use in patients <18 years of age. eGFR results are calculated without a race factor using the 2020 CKD-EPI equation. Careful clinical correlation is recommended, particularly when comparing to results calculated using previous equations. The CKD-EPI equation is less accurate in patients with extremes of muscle mass, extra-renal metabolism of creatine, excessive creatine ingestion, or following therapy that affects renal tubular secretion. Performed By: #### T BRETT MELENDEZ, CP #### [facility] [address] [place] [address] Md Allergy Immunology: Ayden Regan MD Glucose [Mass/Vol] 119 mg/dL High 70-99 [facility] Comment on above: Performed By: #### T BRETT MELENDEZ, CP #### [facility] [address] [place] [address] Md Allergy Immunology: Ayden Regan MD Potassium [Moles/Vol] 3.8 mmol/L Normal 3.7-5.3 [facility] Comment on above: Performed By: #### T BRETT MELENDEZ, CP #### [facility] [address] [place] [address] Md Allergy Immunology: Ayden Regan MD Protein [Mass/Vol] 7.2 g/dL Normal 6.4-8.3 [facility] Comment on above: Performed By: #### BRETT ALMANZA, CP #### [facility] [address] [place] [address] Md Allergy Immunology: Ayden Regan MD Sodium [Moles/Vol] 130 mmol/L Low 135-144 [facility] Comment on above: Performed By: #### T BRETT MELENDEZ, CP #### [facility] [address] [place] [address] Dr[place], [place] [id number] Md Allergy Immunology: Ayden Regan MD Urea nitrogen [Mass/Vol] 13 mg/dL Normal 8-23 [facility] Comment on above: Performed By: #### T BRETT MELENDEZ, CP #### [facility] [address] [place] [address] [place], [place] [id number] Md Allergy Immunology: Ayden Regan MD Lactate, Sepsison 10-26-2023 Lactic Acid, Sepsis 1.0 mmol/L Normal 0.5-1.9 [facility] Comment on above: Performed By: #### L ACDS #### [address] [place], [place] [id number] Md Allergy Immunology: Ayden Regan MD Lactic Acid, Sepsis 1.6 mmol/L Normal 0.5-1.9 [facility] Comment on above: Performed By: #### L ACDS #### [address] [place], [place] [id number] Md Allergy Immunology: Ayden Regan MD Troponinon 10-26-2023 Troponin, High Sens 12 ng/L Normal 0-14 [facility] Comment on above: Result Comment: High Sensitivity Troponin values cannot be compared with other Troponin methodologies. Performed By: #### L ACDS #### [facility] [address] [place] [address] Dr. [place], [place] [id number] Md Allergy Immunology: Ayden Regan MD Troponin, High Sens 12 ng/L Normal 0-14 [facility] Comment on above: Result Comment: High Sensitivity Troponin values cannot be compared with other Troponin methodologies. Performed By: #### T BRETT MELENDEZ, CP #### [address] [place], [place] [id number] Md Allergy Immunology: Ayden Regan MD Urinalysis w/ Microon 2023 Bilirubin, SemiQt,Ur Negative Normal NEG [facility] Comment on above: Performed By: #### L ACDS #### [facility] [address] [place], [place] [id number] Md Allergy Immunology: Ayden Regan MD Blood, Urine Negative Normal NEG [facility] Comment on above: Performed By: #### L ACDS #### [facility] [address] [place], [place] [id number] Md Allergy Immunology: Ayden Regan MD Clarity (U) Clear Normal CLEAR [facility] Comment on above: Performed By: #### L ACDS #### [facility] [address] [place], [place] [id number] Md Allergy Immunology: Ayden Regan MD Color (U) Yellow Normal YEL [facility] Comment on above: Performed By: #### L ACDS #### [facility] [address] [place], [place] [id number] Md Allergy Immunology: Ayden Regan MD Epithelial cells LM Ql (Urine sed) 0 TO 2 Normal 0-25 [facility] Comment on above: Performed By: #### L ACDS #### [address] [place], [place] [id number] Md Allergy Immunology: Ayden Regan MD Glucose Ql (U) Negative Normal NEG [facility] Comment on above: Performed By: #### L ACDS #### [facility] [address] [place], [place] [id number] Md Allergy Immunology: Ayden Regan MD Ketones Ql (U) Negative Normal NEG [facility] Comment on above: Performed By: #### L ACDS #### [facility] [address] [place] [address] Md Allergy Immunology: Ayden Regan MD Leukocyte esterase Test strip Ql (U) Negative Normal NEG [facility] Comment on above: Performed By: #### L ACDS #### [facility] [address] [place] [address] Dr[place], [place] [id number] Md Allergy Immunology: Ayden Regan MD Nitrite,Ur Negative Normal NEG [facility] Comment on above: Performed By: #### L ACDS #### [facility] [address] [place] [address] Dr. [place], [place] [id number] Md Allergy Immunology: Ayden Regan MD PH,Ur 6.5 Normal 5.0-9.0 [facility] Comment on above: Performed By: #### L ACDS #### [address] [place], [place] [id number] Md Allergy Immunology: Ayden Regan MD Protein Ql (U) Negative Normal NEG [facility] Comment on above: Performed By: #### L ACDS #### [facility] [address] [place] [address] Dr. [place], [facility] Md Allergy Immunology: Ayden Regan MD Spec. [place],Ur 1.010 Normal 1.010-1.020 [facility] Comment on above: Performed By: #### L ACDS #### [address] [place], [place] [address] Md Allergy Immunology: Ayden Regan MD Urine RBC's None Normal 0-2 [facility] Comment on above: Performed By: #### L ACDS #### [facility] [address] [place] [address] Dr. [place], [place] [id number] Md Allergy Immunology: Ayden Regan MD Urine WBC's None Normal 0-5 [facility] Comment on above: Performed By: #### L ACDS #### [address] [place], [place] [id number] Md Allergy Immunology: Ayden Regan MD Urobilinogen,Ur Normal Normal 0.0-1.0 [facility] Comment on above: Performed By: #### L ACDS #### [facility] [address] [place] [address] [place] [address] Md Allergy Immunology: Ayden Regan MD XR CHEST PORTABLEon 10-26-19 XR CHEST PORTABLE EXAMINATION: ONE XRAY VIEW OF THE CHEST 10/26/2023 4:05 pm COMPARISON: March 29, 2008 HISTORY: ORDERING SYSTEM PROVIDED HISTORY: fever, altered mental status TECHNOLOGIST PROVIDED HISTORY: fever, altered mental status FINDINGS: The cardiomediastinal silhouette is normal in size. No evidence of lobar infiltrate or air bronchograms. Mildly increased interstitial opacities are noted bilaterally with a lower lobe predominance. No pleural effusion or pneumothorax. IMPRESSION: Mildly increased interstitial opacities bilaterally with a lower lobe predominance. Findings are nonspecific and may represent mild interstitial edema or an infectious process or chronic interstitial lung disease. Interpreted by: Ayden Siegel MD Signed by: Ayden Siegel MD 10/26/23 Final result Normal [facility] ACID FAST SMEAR AND CXon Acid Fast Culture Negative Normal [facility] Comment on above: Result Comment: No a broderick fast bacilli isolated after 6 weeks. Performed By: #### A FB #### [facility] [address] [place] [address] Dr. Shari Allen Acid Fast Smear Negative Normal [facility] Comment on above: Performed By: #### A FB #### [facility] [address] [place] [address] Dr. Shari Allen [employer] Specimen Processing Concentration Normal [facility] Comment on above: Performed By: #### A FB #### [facility] [address] [place] [address] Dr. Shari Allen FUNGAL CULTUREon 2022 Fungus (Mycology) Culture Final report Normal [facility] Comment on above: Performed By: #### C XFUN #### [facility] [address] [place] [address] Dr. Shari Allen Fungus Stain Final report Normal [facility] Comment on above: Performed By: #### C XFUN #### [facility] [address] [place] [address] Dr. Shari Allen Result 1 Comment Normal [facility] Comment on above: Result Comment: CHINO/ Calcofluor preparation: no fungus observed. Performed By: #### C XFUN #### [facility] [address] [address] [address] Shari Allen Result Comment: No y east or mold isolated after 4 weeks. CULTURE ANAEROBICon 10-23-19 CULTURE ANAEROBIC Culture Observations : NO GROWTH OF ANAEROBES AT 72 HOURS. Normal [facility] Comment on above: Performed By: #### C XFUN #### [facility] [address] [address] [address] Shari Allen CULTURE OTHERon 10-22-2022 CULTURE OTHER Culture Observations : Light growth of NORMAL SKIN MRATHA. Culture Observations: NO GROWTH OF ANAEROBES AT 72 HOURS. Normal [facility] Comment on above: Performed By: #### C XFUN #### [facility] [address] [place] [address] Dr. Shari Allen GRAM STAINon 10-22-2022 COMMENTS NO ORGANISMS OBSERVED Normal [facility] Comment on above: Performed By: #### G STAIN #### [facility] [address] [place] [address] Dr. Shari Allen DIPHTHEROIDS Normal [facility] Comment on above: Performed By: #### G STAIN #### [facility] [address] [place] [address] Dr. Shari Allen EPITHELIALS Normal [facility] Comment on above: Performed By: #### G STAIN #### [facility] [address] [place] [address] Dr. Shari Allen FUNGAL ELEMENTS Normal [facility] Comment on above: Performed By: #### G STAIN #### [facility] [address] [place] [address] Dr. Shari Allen GRAM NEG BACILLI Normal [facility] Comment on above: Performed By: #### G STAIN #### [facility] [address] [place] [address] Dr. Shari YEPEZ NEG DIPPLOCOCCI Normal [facility] Comment on above: Performed By: #### G STAIN #### [facility] [address] [place] [address] Dr. Shari Allen GRAM POS BACILLI Normal [facility] Comment on above: Performed By: #### G STAIN #### [facility] [address] [address] [address] Shari Allen GRAM POSITIVE COCCI Normal [facility] Comment on above: Performed By: #### G STAIN #### [facility] [address] [address] [address] Shari Allen GRAM STAIN SOURCE Rt 2nd Toe Normal [facility] Comment on above: Performed By: #### G STAIN #### [facility] [address] [place] [address] Dr. Shari Allen GS_DIPTH [facility] Comment on above: Performed By: #### G STAIN #### [facility] [address] [place] [address] Dr. Shari Allen WBC RARE Normal [facility] Comment on above: Performed By: #### G STAIN #### [facility] [address] [place] [address] Dr. Shari Allen POINT OF CARE GLUCOSEon 04-0 Glucose [Mass/Vol] 109 mg/dL Critically high 74-106 [facility] Comment on above: Performed By: #### P OCGLUC #### [facility] [address] [place] [address] Dr. Shari Allen Glucose [Mass/Vol] 89 mg/dL Normal 74-106 [facility] Comment on above: Performed By: #### P OCGLUC #### [facility] [address] [place] [address] Dr. Shari Allen PROF CHEM 8 (BAS METB)on Anion gap [Moles/Vol] 12.2 mmol/L Normal [facility] Comment on above: Performed By: #### B MP #### [facility] [address] [place] [address] Dr. Shari Allen Calcium [Mass/Vol] 9.3 mg/dL Normal 8.5-10.1 [facility] Comment on above: Performed By: #### B MP #### [facility] [address] [place] [address] Dr. Shari Allen Chloride [Moles/Vol] 104 mmol/L Normal 98-107 [facility] Comment on above: Performed By: #### B MP #### [facility] [address] [address] [address] Shari Allen CO2 [Moles/Vol] 28.5 mmol/L Normal 21.0-32.0 [facility] Comment on above: Performed By: #### B MP #### [facility] [address] [address] [address] Shari Allen Creatinine [Mass/Vol] 0.83 mg/dL Normal 0.55-1.02 [facility] Comment on above: Performed By: #### B MP #### [facility] [address] [address] [address] Shari Allen EGFR-AF BENINESE >60 Normal >=60 [facility] Comment on above: Performed By: #### B MP #### [facility] [address] [address] [address] Shari Allen EGFR-NON AF BENINESE >60 Normal >=60 [facility] Comment on above: Performed By: #### B MP #### [facility] [address] [address] [address] Shari Allen Glucose [Mass/Vol] 89 mg/dL Normal 74-106 [facility] Comment on above: Performed By: #### B MP #### [facility] [address] [address] [address] Shari Allen Potassium [Moles/Vol] 3.7 mmol/L Normal 3.5-5.1 [facility] Comment on above: Performed By: #### B MP #### [facility] [address] [address] [address] Shari Allen Sodium [Moles/Vol] 141 mmol/L Normal 136-145 [facility] Comment on above: Performed By: #### B MP #### [facility] [address] [address] [address] Shari Allen Urea nitrogen [Mass/Vol] 18.0 mg/dL Normal 7.0-18.0 [facility] Comment on above: Performed By: #### B MP #### [facility] [address] [place] [address] Dr. Shari Allen Urea nitrogen/Creatinine [Mass ratio] 21.7 mg/mg Normal [facility] Comment on above: Performed By: #### B MP #### [facility] [address] [place] [address] Dr. Shari Allen POINT OF CARE GLUCOSEon 04-22 Glucose [Mass/Vol] 86 mg/dL Normal 74-106 [facility] Comment on above: Performed By: #### P OCGLUC #### [facility] [address] [place] [address] Dr. Shari Allen Glucose [Mass/Vol] 95 mg/dL Normal 74-106 [facility] Comment on above: Performed By: #### P OCGLUC #### [facility] [address] [place] [address] Dr. Shari Allen CBC AUTO DIFFon 05-07-2022 BASO # 0.0 103/ul Normal 0.0-0.1 [facility] Comment on above: Performed By: #### C BC #### [facility] [address] [place] [address] Dr. Shari Allen Basophils/100 WBC (Bld) 0.5 % Normal 0.2-2.0 [facility] Comment on above: Performed By: #### C BC #### [facility] [address] [place] [address] Dr. Shari Allen EO # 0.2 103/ul Normal 0.0-0.7 [facility] Comment on above: Performed By: #### C BC #### [facility] [address] [place] [address] Dr. Shari Allen Eosinophils/100 WBC (Bld) 2.9 % Normal 0.9-7.0 [facility] Comment on above: Performed By: #### C BC #### [facility] [address] [place] [address] Dr. Shari Allen Erythrocyte distribution width (RBC) [Ratio] 12.6 % Normal 11.0-15.0 [facility] Comment on above: Performed By: #### C BC #### [facility] [address] [place] [address] Dr. Shari Allen Hematocrit (Bld) [Volume fraction] 38.2 % Normal 36.0-48.0 [facility] Comment on above: Performed By: #### C BC #### [facility] [address] [place] [address] Dr. Shari Allen Hemoglobin (Bld) [Mass/Vol] 12.4 g/dL Normal 12.0-16.0 [facility] Comment on above: Performed By: #### C BC #### [facility] [address] [place] [address] Dr. Shari Allen IG # 0.01 10e3/ul Normal 0.00-0.03 [facility] Comment on above: Performed By: #### C BC #### [facility] [address] [place] [address] Dr. Shari Allen IG % 0.2 % Normal 0.0-0.5 [facility] Comment on above: Performed By: #### C BC #### [facility] [address] [place] [address] Dr. Shari Allen LYMPH # 2.0 103/ul Normal 1.2-3.8 [facility] Comment on above: Performed By: #### C BC #### [facility] [address] [place] [address] Dr. Shari Allen Lymphocytes/100 WBC (Bld) 31.7 % Normal 20.5-60.0 [facility] Comment on above: Performed By: #### C BC #### [facility] [address] [place] [address] Dr. Shari Allen MANUAL DIFF REQ NO Normal [facility] Comment on above: Performed By: #### C BC #### [facility] [address] [place] [address] Dr. Shari Allen MCH (RBC) [Entitic mass] 30.7 pg Normal 26.7-34.0 [facility] Comment on above: Performed By: #### C BC #### [facility] [address] [address] [address] Shari Allen MCHC (RBC) [Mass/Vol] 32.5 g/dL Normal 29.9-35.2 [facility] Comment on above: Performed By: #### C BC #### [facility] [address] [address] [address] Shari Allen MCV (RBC) [Entitic vol] 94.6 fL Normal 81.0-99.0 [facility] Comment on above: Performed By: #### C BC #### [facility] [address] [address] [address] Shari Allen MONO # 0.5 103/ul Normal 0.3-0.8 [facility] Comment on above: Performed By: #### C BC #### [facility] [address] [place] [address] Dr. Shari Allen Monocytes/100 WBC (Bld) 8.6 % Normal 1.7-12.0 [facility] Comment on above: Performed By: #### C BC #### [facility] [address] [address] [address] Shari Allen NEUT # 3.5 103/ul Normal 1.4-6.5 [facility] Comment on above: Performed By: #### C BC #### [facility] [address] [place] [address] Dr. Shari Allen Neutrophils/100 WBC (Bld) 56.1 % Normal 43.0-75.0 [facility] Comment on above: Performed By: #### C BC #### [facility] [address] [place] [address] Dr. Shari Allen Platelet mean volume (Bld) [Entitic vol] 8.5 fL Critically low 9.5-13.5 [facility] Comment on above: Performed By: #### C BC #### [facility] [address] [place] [address] Dr. Shari Allen PLT 304 103/ul Normal 150-450 [facility] Comment on above: Performed By: #### C BC #### [facility] [address] [place], [place] [address] Dr. Shari Allen RBC 4.04 106/ul Critically low 4.20-5.40 [facility] Comment on above: Performed By: #### C BC #### [facility] [address] [place], [place] [address] Dr. Shari Allen WBC 6.2 103/ul Normal 4.0-11.0 [facility] Comment on above: Performed By: #### C BC #### [facility] [address] [id number] Shari Allen [facility]21 SARS-CoV-2 (COVID-19) RNA LEANN+probe Ql (Unsp spec) Not detected Normal NOT DETECTED [facility] Comment on above: Result Comment: This test is not yet approved or cleared by the [place] FDA. When there are no FDA-approved or cleared tests available, and other criteria are met, FDA can make tests available under an emergency access mechanism called an Emergency Use Authorization (EUA). The EUA for this test is supported by the [place] of Health and Human Service's (HHS's) declaration that circumstances exist to justify the emergency use of in vitro diagnostics for the detection and/or diagnosis of the virus that causes COVID-19. This EUA will remain in effect (meaning this test can be used) for the duration of the COVID-19 declaration justifying emergency of IVDs, unless it is terminated or revoked by FDA (after which the test may no longer be used). When diagnostic testing is negative, the possibility of a false negative should be considered in the context of a patient's recent exposures and the presence of clinical signs and symptoms consistent with SARS-CoV-2. Performed By: #### C XFUN #### [facility] [address] [place], [place] [id number] Dr. Shari Allen PROF CHEM 8 (BAS METB)on Anion gap [Moles/Vol] 11.1 mmol/L Normal [facility] Comment on above: Performed By: #### B MP #### [facility] [address] [address] [address] Shair Allen Calcium [Mass/Vol] 9.0 mg/dL Normal 8.5-10.1 [facility] Comment on above: Performed By: #### B MP #### [facility] [address] [place] [address] Dr. Shari Allen Chloride [Moles/Vol] 104 mmol/L Normal 98-107 [facility] Comment on above: Performed By: #### B MP #### [facility] [address] [address] [address] Shari Allen CO2 [Moles/Vol] 29.7 mmol/L Normal 21.0-32.0 [facility] Comment on above: Performed By: #### B MP #### [facility] [address] [place] [address] Dr. Shari Allen Creatinine [Mass/Vol] 0.80 mg/dL Normal 0.55-1.02 [facility] Comment on above: Performed By: #### B MP #### [facility] [address] [place] [address] Dr. Shari Allen EGFR-AF BENINESE >60 Normal >=60 [facility] Comment on above: Performed By: #### B MP #### [facility] [address] [address] [address] Shari Allen EGFR-NON AF BENINESE >60 Normal >=60 [facility] Comment on above: Performed By: #### B MP #### [facility] [address] [address] [address] Shari Allen Glucose [Mass/Vol] 87 mg/dL Normal 74-106 [facility] Comment on above: Performed By: #### B MP #### [facility] [address] [address] [address] Shari Allen Potassium [Moles/Vol] 3.8 mmol/L Normal 3.5-5.1 [facility] Comment on above: Performed By: #### B MP #### [facility] [address] [address] [address] Shari Allen Sodium [Moles/Vol] 141 mmol/L Normal 136-145 [facility] Comment on above: Performed By: #### B MP #### [facility] [address] [address] [address] Shari Allen Urea nitrogen [Mass/Vol] 14.0 mg/dL Normal 7.0-18.0 [facility] Comment on above: Performed By: #### B MP #### [facility] [address] [address] [address] Shari Allen Urea nitrogen/Creatinine [Mass ratio] 17.5 mg/mg Normal [facility] Comment on above: Performed By: #### B MP #### [facility] [address] [address] [address] Shari Allen Vital Signs Date Time Vital Sign Value Performing Clinician Faci lity 09-04-2023 11:26-0500 Body height 180.3 cm Kvng Linton MD Work Phone: [facility] 09-04-2023 11:26-0500 Body mass index (BMI) [Ratio] 19.8 kg/m2 Kvng Linton MD Work Phone: [facility] 09-04-2023 11:26-0500 Body weight 64.41 kg Kvng Linton MD Work Phone: [facility] 09-04-2023 11:26-0500 Diastolic blood pressure 62 mm[Hg] Kvng Linton MD Work Phone: [facility] 09-04-2023 11:26-0500 Heart rate 61 /min Kvng Linton MD Work Phone: [facility] 09-04-2023 11:26-0500 SaO2% (BldA) [Mass fraction] 99 % Kvng Linton MD Work Phone: [facility] 09-04-2023 11:26-0500 Systolic blood pressure 106 mm[Hg] Kvng Linton MD Work Phone: [facility] Healthcare Encounters Encounter Date Encounter Type Care Provider Facility Start: 02-06-2024 End: 02-06-2024 ambulatory MICHAEL MORRISSEY Not Available Start: 01-16-2024 End: 01-16-2024 ambulatory KAMLA Chris NEYDA [facility] Start: 01-09-2024 End: 01-09-2024 ambulatory KVNG LINTON Not Available Start: 12-20-2023 End: 12-20-2023 Evaluation and management of inpatient AYDEN LAN [facility] Start: 12-19-2023 End: 12-20-2023 Evaluation and management of inpatient [facility] Start: 11-28-2023 End: 11-28-2023 ambulatory JESUS Mercedez BINGHAM [facility] Start: 10-31-2023 End: 10-31-2023 ambulatory MICHAEL MORRISSEY Not Available Start: 10-26-2023 End: 10-27-2023 [facility] Start: 10-22-2023 End: 10-22-2023 ambulatory MICHAEL MORRISSEY Not Available Start: 09-25-2023 Telephone encounter Jesus Mercedez [facility] [employer] Work Phone: [facility] Start: 09-05-2023 ambulatory Facility:Chris Mcgarry Start: 09-04-2023 Bamboo flowsheet Kvng jones MD Work Phone: [facility] Start: 09-04-2023 Bamboo flowsheet Kvng jones MD Work Phone: [facility] Start: 09-04-2023 End: 09-04-2023 Transitional care manage srvc 14 day discharge Kvng Linton MD Work Phone: [facility] Comment on above: TIA (transient ische gilberto attack) (Primary Dx); Urinary frequency; Dyslipidemia (CMS/HCC); Essential hypertension (CMS/HCC) Start: 09-04-2023 End: 09-04-2023 ambulatory KVNG LINTON Not Available Start: 11-13-2022 End: 11-14-[address] KVNG LINTON Facility:[facility]1 Start: 11-05-2022 End: 11-06-[address] KVNG LINTON Facility:[facility]1 Start: 10-22-2022 End: 10-22-[address] KVNG LINTON Facility:[facility]1 Start: 10-19-2022 Encounter for preprocedural cardiovascular examination ANUP CASTRO [facility] Start: 10-19-2022 Encounter for preprocedural laboratory examination ANUP CASTRO [facility] Start: 10-16-2022 End: 10-17-[address] KVNG LINTON Facility:[facility]1 Start: 10-16-2022 End: 10-17-2022 Encounter for preprocedural cardiovascular examination DR KVNG LINTON Facility:[facility]1 Start: 10-09-2022 End: 10-10-[address] KVNG LINTON Facility:[facility]1 Start: 09-25-2022 End: 09-26-[address] KVNG LINTON Facility:[facility]1 Start: 09-18-2022 End: 09-19-[address] KVNG LINTON Facility:[facility]1 Start: 07-27-2022 End: 07-28-[address] KVNG LINTON Facility:[facility]1 Start: 06-19-2022 End: 06-20-[address] KVNG LINTON Facility:[facility]1 Start: 06-01-2022 End: 06-02-2022 ambulatory ANUP AMEZCUAANDER Facility:H1 Start: 05-25-2022 End: 05-26-2022 ambulatory ANUP Anderson HIGHLANDER Facility:H1 Start: 05-18-2022 End: 05-19-2022 ambulatory ANUP Anderson HIGHLANDER Facility:H1 Start: 05-10-2022 End: 05-10-2022 ambulatory ANUP D HIGHLANDER Facility:H1 Start: 05-07-2022 End: 05-08-2022 ambulatory PETER D HIGHLANDER Facility:H1 Start: 05-02-2022 End: 05-03-2022 ambulatory PETER D HIGHLANDER Facility:H1 Start: 04-30-2022 End: 05-01-2022 ambulatory PETER D HIGHLANDER Facility:H1 Start: 03-23-2022 End: 03-24-2022 ambulatory PETER D HIGHLANDER Facility:H1 Start: 03-16-2022 End: 03-17-2022 ambulatory PETER D HIGHLANDER Facility:H1 Start: 03-02-2022 End: 03-03-2022 ambulatory ANUP D HIGHLANDER Facility:H1 Start: 02-23-2022 End: 02-24-2022 ambulatory ANUP D HIGHLANDER Facility:H1 Start: 01-26-2022 End: 01-27-2022 ambulatory ANUP CASTRO Facility:H1 Start: 01-18-2022 End: 01-19-2022 ambulatory ANUP CASTRO Facility:H1 Start: 01-11-2022 End: 01-12-2022 ambulatory ANUP CASTRO Facility:H1 Start: 01-04-2022 End: 01-04-[address] KVNG LINTON Facility:H1 Start: 01-01-[address] KVNG LINTON Facilit y:H1 Plan of Treatment Date Care Activity Detail Author Start: 04-10-2025 Screening for malign ant neoplasm of colon [facility] Start: 09-04-2023 End: 09-04-2025 Echocardiogram 2D complete Echocardiogram 2D complete Echocardiography Routine TIA (transient ischemic attack) Expected: 09/04/2023 (Approximate), Expires: 09/04/2025 [facility] Work Phone: Comment on above: Expected: 09/04/2023 (Approximate), Expires: 09/04/2025 Start: 09-04-2023 End: 09-04-2023 Patient encounter procedure 09/04/2023 11:30 AM EST Office Visit [facility] [address] [facility] [address] [place] [id number] Kvng Linton MD [address] [facility] [address] [place] [address] Arrived [facility] Comment on above: Arrived Start: 05-07-2023 Medicare Annual Well ness (AWV) Medicare Annual Wellness (AWV) [facility] Start: 03-22-2023 COVID-19 Vaccine ( season) COVID-19 Vaccine ( season) [facility] Start: 03-22-2023 Influenza vaccination [facility] Start: 02-16-2023 Tobacco Screening Tobacco Screening [facility] Start: 10-31-2022 Adult BMI Screening Adult BMI Screen ing [facility] Start: 01-20-2022 DTaP,Tdap and Td Vaccines (2 - Td or Tdap) DTaP,Tdap and Td Vaccines (2 - Td or Tdap) [facility] Start: 11-21-2012 Fall Risk Screening Fall Risk Screen ing [facility] Start: 11-21-1997 Administration of varicella zoster vaccine Zoster (Shingles) Vaccine (1 of 2) [facility] Start: 1959 Depression Screening Depression Scre ening [facility] Start: 1945 Medicare Annual Well ness Visit Medicare Annual Wellness Visit [facility] Start: 1945 Screening for malign ant neoplasm of colon [facility] Immunizations Immunization Date Immunization Notes Care Provider Fa cili 07-05-2022 Influenza, High-dose Seasonal, Quadrivalent, Preservative Free Kvng Linton MD Work Phone: [facility] 07-05-2022 influenza virus vacc ine, unspecified formulation Kvng Linton MD Work Phone: [facility] 05-03-2021 influenza, high dose seasonal, preservative-free Kvng Linton MD Work Phone: [facility] 04-12-2020 Influenza, High-dose Seasonal, Quadrivalent, Preservative Free Kvng Linton MD Work Phone: [facility] 04-12-2020 pneumococcal conjuga te vaccine, 13 valent Kvng Linton MD Work Phone: [facility] 04-05-2020 influenza, high dose seasonal, preservative-free Kvng Linton MD Work Phone: [facility] 04-05-2020 pneumococcal polysaccharide vaccine, 23 valent Kvng Linton MD Work Phone: [facility] 07-02-2019 influenza, high dose seasonal, preservative-free Kvng Linton MD Work Phone: [facility] 06-05-2018 Influenza, injectabl e, Madin [place] Canine Kidney, preservative free, quadrivalent Kvng Linton MD Work Phone: [facility] 04-23-2018 seasonal influenza, intradermal, preservative free Kvng Linton MD Work Phone: [facility] 04-23-2016 influenza, injectabl e, quadrivalent, contains preservative Kvng Linton MD Work Phone: [facility] 11-16-2013 pneumococcal polysaccharide vaccine, 23 valent Kvng Linton MD Work Phone: [facility] 01-21-2012 tetanus toxoid, redu nithin diphtheria toxoid, and acellular pertussis vaccine, adsorbed Kvng Linton MD Work Phone: [facility] Payers Date Payer Category Payer Medicare [id number] 2023 Medicare [id number] 2020 Unknown [employer] [id number] 2020-Present [phone] [address] [place] [address] [id number]. [id number] 2012 Medicare [id number]. 1.13.693.2.7.3. [id number] 1959 Medicare [id number] 1959 Unknown [id number] 1947 Unknown [id number] 2.16.840.1.531786.3.579.2.593 1947 Unknown [id number] 2.16.840.1.228436.3.579.2.593 1947 Unknown [id number] 2.16.840.1.457176.3.579.2.593 1947 Unknown [id number] 2.16.840.1.047608.3.579.2.593 1947 Unknown [id number] 2.16.840.1.052684.3.579.2.593 1947 Unknown [id number] 2.16.840.1.350150.3.579.2.593 1947 Unknown [id number] 2.16.840.1.525466.3.579.2.593 1947 Unknown [id number] 2.16.840.1.999655.3.579.2.593 1947 Unknown [id number] 2.16.840.1.214156.3.579.2.593 1947 Unknown [id number] 2.16.840.1.261890.3.579.2.593 1947 Unknown [id number] 2.16.840.1.919744.3.579.2.593 1947 Unknown [id number] 2.16.840.1.452478.3.579.2.593 1947 Unknown [id number] 2.16.840.1.793150.3.579.2.593 1947 Unknown [id number] 2.16.840.1.967976.3.579.2.593 1947 Unknown [id number] 2.840.1.223800.3.579.2.593 1947 Unknown [id number] 2.16.840.1.750297.3.579.2.593 1947 Unknown [id number] 2.16.840.1.810347.3.579.2.593 1947 Unknown [id number] 2.16840.1.269950.3.579.2.593 1947 Unknown [id number] 2.840.1.661632.3.579.2.593 1947 Unknown [id number] 2.16.840.1.172386.3.579.2.593 1947 Unknown [id number] 2.16.840.1.991611.3.579.2.593 1947 Unknown [id number] 2.16.840.1.321837.3.579.2.593 1947 Unknown [id number] 2.16.840.1.196596.3.579.2.593 1947 Unknown [id number] 2.16.840.1.378477.3.579.2.593 1947 Unknown [id number] 2.16.840.1.339413.3.579.2.593 1947 Unknown [id number] 2.16.840.1.837242.3.579.2.173 1947 Unknown [id number] 2.16.840.1.128259.3.579.2.1286 1947 Unknown [id number] 2.16.840.1.891138.3.579.2.1286 1947 Unknown [id number] 2.16.840.1.366267.3.579.2.1286 1947 Unknown [id number] 2.16.840.1.253776.3.579.2.1286 1947 Unknown [id number] 2.16.840.1.726792.3.579.2.1286 1947 Unknown [id number] 2.16.840.1.788267.3.579.2.1286 1947 Unknown [id number] 2.16.840.1.177506.3.579.2.1259 1947 Unknown [id number] 2.16.840.1.214809.3.579.2.1259 1947 Unknown [id number] 2.16.840.1.857981.3.579.2.1259 1947 Unknown [id number] 2.16.840.1.644815.3.579.2.1259 1947 Unknown [id number] 2.16.840.1.723307.3.579.2.1259 Social History Date Type Detail Facility Start: 11-30-2020 End: 03-12-2023 Tobacco smoking status CAIS Ex-smoker [facility] End: 07-22-1992 History of tobacco use Current smoker [facility] End: 07-22-1992 History of tobacco use Cigarette Smoker [facility] Start: 11-30-2020 End: 03-12-2023 Tobacco use and exposure Smokeless tobacco non-user [facility] Start: 08-30-2023 End: 09-04-2023 Alcohol intake Not Asked [facility] Start: 12-31-2018 End: 03-12-2023 History of Social function [facility] Start: 12-31-2018 End: 03-12-2023 Tobacco use panel [facility] Start: 03-14-2023 Alcohol Comment caffeine intak e: more than 4 cups per day. [facility] Start: 1945 Sex Assigned At Not on file [facility] Start: 02-16-2022 Alcohol intake Ex-drinker (finding) [facility] Childcare Unknown [facility] Clinical Notes 02-26-2022 to 09-25-2023 Telephone Encounter - Christie Leo - 09/25/2023 1:29 PM ESTTelephone Encounter - Christie Leo - 09/25/2023 1:29 PM Eve Linton MD - 09/04/2023 11:30 AM EST Note Date & Type Note Facility 09-25-2023 Miscellaneous Notes Called Berenice regarding the constipation referral that our office received from Dr. Linton, I left a message on voicemail to call the office back to schedule an appointment. Also called 3/5 LM TRC 09/18 LM TRC documented in this encounter [facility] 09-25-2023 Telephone encounter Note Called Berenice regarding the constipation referral that our office received from Dr. Linton, I left a message on voicemail to call the office back to schedule an appointment. Also called 3/5 LM TRC 28 LM TRC [facility] 09-04-2023 History of Present illness Narrative Subjective Patient ID: Berenice Silva is a 77 y.o. female who presents for Follow-up ([facility] stay admitted 08/24/23 dx: TIA discharged home 2/4/24 advised to take ASA 325mg). Flowsheet Row Telephone from 08/30/2023 in [facility] with Kvng Linton MD Discharge Information ED or Hospital Discharge? Hospital Patient has been contacted within two business days of discharge No Have two attempts been made to contact the patient within two business days of being discharged? No Discharge Date 08/25/23 Discharge Hospital [facility] Discharged To: Home Setting Engagement Call Start Time 1031 Medications Appointments Self Management Patient Teaching Does the patient have access to their discharge instructions? Yes Wrap Up Call End Time 1033 Pt taking ASA as directced Pt states she has had difficulty with urinating and constipation x 3-4 months Current Outpatient Medications on File Prior to Visit Medication Sig Dispense Refill aspirin 325 MG tablet Take 325 mg by mouth in the morning. calcium carbonate (Os-King) 1250 (500 Ca) MG tablet every 12 (twelve) hours. gabapentin (Neurontin) 600 MG tablet TABLET 1/2 TABLET BY MOUTH TWICE A DAY AND TAKE 1 TABLET BY MOUTH EVERY DAY AT BEDTIME 180 tablet 3 losartan-hydroCHLOROthiazide (Hyzaar) 50-12.5 MG tablet Take 1 tablet by mouth in the morning and 1 tablet before bedtime. meloxicam (Mobic) 15 MG tablet TAKE 1 TABLET BY MOUTH EVERY DAY 60 tablet 2 rOPINIRole (Requip) 0.5 MG tablet TAKE 2 TABLETS BY MOUTH IN THE MORNING AND TAKE 2 TABLETS AT BEDTIME 360 tablet 1 traMADol (Ultram) 50 MG tablet 1 TABLET NEEDED ORALLY EVERY 6 HOURS 14 DAYS [DISCONTINUED] atorvastatin (Lipitor) 10 MG tablet TAKE 1 TABLET BY MOUTH EVERY DAY IN THE MORNING 90 tablet 0 [DISCONTINUED] HYDROcodone-acetaminophen ([place]) 5-325 MG tablet Take 1 tablet by mouth 4 (four) times a day as needed. No current facility-administered medications on file prior to visit. Allergies Allergen Reactions Amoxicillin-Pot Clavulanate Nausea Only Sulfa Antibiotics Other Reaction(s): itching Social History Tobacco Use Smoking status: Former Types: Cigarettes Quit date: 1992 Years since quittin.1 Smokeless tobacco: Never Family History Problem Relation Name Age of Onset Cancer Mother Heart disease Father Past Medical History: Diagnosis Date Arthritis History of being hospitalized 08/24/2023 TIA Hyperlipidemia (CMS/HCC) Hypertension (CMS/HCC) Past Surgical History: Procedure Laterality Date ARTHROPLASTY 2019 CATARACT EXTRACTION SECTION, LOW TRANSVERSE COLONOSCOPY 2013 EGD 2019 esophageal dilatation FOOT SURGERY right foot dr castro HERNIA REPAIR IR INJECTION NERVE BLOCK 2020 2021 l4 to s1 and l3-l5 Visit Vitals BP 106/62 Pulse 61 Ht 5' 11 Wt 142 lb SpO2 99% BMI 19.80 kg/m Smoking Status Former BSA 1.8 m Review of Systems Constitutional: Negative for chills, fatigue and fever. Respiratory: Negative for cough, shortness of breath and wheezing. Cardiovascular: Negative for chest pain and palpitations. Gastrointestinal: Negative for abdominal pain, constipation, diarrhea, nausea and vomiting. Skin: Negative for rash. Neurological: Negative for weakness, light-headedness and numbness. Objective Physical Exam Constitutional: General: She is not in acute distress. Appearance: Normal appearance. She is well-developed. HENT: Head: Normocephalic and atraumatic. Eyes: General: No scleral icterus. Conjunctiva/sclera: Conjunctivae normal. Cardiovascular: Rate and Rhythm: Normal rate and regular rhythm. Heart sounds: Normal heart sounds. No murmur heard. Pulmonary: Effort: Pulmonary effort is normal. No respiratory distress. Breath sounds: Normal breath sounds. No wheezing, rhonchi or rales. Skin: General: Skin is warm and dry. Neurological: General: No focal deficit present. Mental Status: She is alert and oriented to person, place, and time. Psychiatric: Mood and Affect: Mood normal. Behavior: Behavior normal. Assessment/Plan Diagnoses and all orders for this visit: TIA (transient ischemic attack) - Echocardiogram 2D complete; Future - Ambulatory referral to Neurology; Future - The patient was seen today in follow up of recent hospital stay. All available hospital records were reviewed and discussed with the patient. Hospital discharge meds were reviewed. Any changes are noted above. Urinary frequency - Ambulatory referral to Urology; Future Dyslipidemia (CMS/HCC) - atorvastatin (Lipitor) 10 MG tablet; Take 1 tablet (10 mg) by mouth in the morning. - She had stopped this over unfound fear of side effects she didn't have. Essential hypertension (CMS/HCC) Follow up in about 3 weeks (around 09/25/2023) for Test/Lab Review. documented in this encounter [facility] 10-22-2022 Note PROCEDURE: XR FOOT R T MIN 3 VIEWS HISTORY: Postoperative visit COMPARISON: Right foot 10/09/2022 FINDINGS: BONES:Surgical removal of the distal second toe at level of the proximal interphalangeal joint. Prior fusion of the first metatarsophalangeal joint through the medial midfoot. Prior talocalcaneal fusion via 2 lag screws. SOFT TISSUES:No visible soft tissue swelling. EFFUSION:None visible. OTHER: Negative. IMPRESSION: 1. 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 2. Stable surgical changes/fusion without hardware failure or change in alignment. Electronically authenticated by: TARIQ FINE Date: 2022-10-22 16:24 [facility] 10-09-2022 Note PROCEDURE: XR FOOT R T MIN 3 VIEWS COMPARISON: 09/18/2022 HISTORY: Pain in right foot FINDINGS: BONES:New lytic appearance of the second distal phalanx. No acute fracture or dislocation. Stable subtalar fusion. Stable fusion the first metatarsal-phalangeal joint and medial foot extending from the hindfoot and forefoot. No mechanical failure. Degenerative changes with bulky enthesopathic spurring plantar calcaneus SOFT TISSUES:Soft tissue swelling of the second toe EFFUSION:None visible. OTHER: Negative. IMPRESSION: Lytic changes consistent with osteomyelitis involving the second distal phalanx Electronically authenticated by: AYDEN SERRA Date: 2022-10-09 14:38 [facility] 09-18-2022 Note PROCEDURE: XR FOOT R T MIN 3 VIEWS COMPARISON: 05/10/2022 HISTORY: Pain in right foot FINDINGS: BONES:Stable fusion hardware with a dorsal plate across the first metatarsal-phalangeal joint, plate extending from the hindfoot midfoot into the first metatarsal and subtalar fusion. No acute fracture, dislocation or mechanical failure. Moderate plantar enthesopathic spurring of the calcaneus SOFT TISSUES:Soft tissue swelling of the second toe EFFUSION:None visible. OTHER: Limited due to persistent flexion of the toes IMPRESSION: Soft tissue swelling of the second toe without definite evidence of osteomyelitis Electronically authenticated by: AYDEN SERRA Date: 2022-09-18 17:34 [facility] 05-10-2022 Note PROCEDURE: XR FOOT R T 2V COMPARISON: 02/23/2022 HISTORY: Pain FINDINGS: BONES:Stable medial effusion with plates and screws. Stable subtalar fusion. Changing configuration of the lateral sesamoid of the first metatarsal SOFT TISSUES:Negative. No visible soft tissue swelling. EFFUSION:None visible. OTHER: Negative. IMPRESSION: Intraprocedural fluoroscopic images Electronically authenticated by: AYDEN SERRA Date: 2022-05-10 17:33 [facility] 05-10-2022 Note PROCEDURE: XR FOOT R T MIN 3 VIEWS COMPARISON: 02/23/2022. HISTORY: Postoperative visit FINDINGS: BONES:Stable postsurgical changes with fusion of the medial foot using a plate extending from the hindfoot midfoot to forefoot and a medial plate across the first metatarsal-phalangeal joint. Diffuse degenerative changes. Subtalar fusion with 2 screws Persistent flexion of the toes. SOFT TISSUES:Negative. No visible soft tissue swelling. EFFUSION:None visible. OTHER: Negative. IMPRESSION: Stable postsurgical changes with no mechanical failure Electronically authenticated by: AYDEN SERRA Date: 2022-05-10 17:32 [facility] 02-26-2022 Note PROCEDURE: XR FOOT R T MIN 3 VIEWS COMPARISON: 10/16/2021 HISTORY: Pain FINDINGS: BONES:Stable postsurgical changes with subtalar fusion utilizing 2 cannulated lag screws. Fusion of the medial hindfoot midfoot and forefoot with a plate and numerous screws. Fusion of the first metatarsal-phalangeal joint with a dorsal plate and screws. Severe underlying degenerative changes with likely fusion of the first through third tarsometatarsal joints as well as the intertarsal joints SOFT TISSUES:Negative. No visible soft tissue swelling. EFFUSION:None visible. OTHER: Negative. IMPRESSION: Stable postsurgical changes of the foot Electronically authenticated by: AYDEN SERRA Date: 2022-02-26 07:57 [facility] Evaluation note Diagnosis TIA (transient ischemic attack)- Primary Unspecified transient cerebral ischemia Urinary frequency Dyslipidemia (CMS/HCC) Other and unspecified hyperlipidemia Essential hypertension (CMS/HCC) Unspecified essential hypertension documented in this encounter [facility]ructionsNot on filedocumented in this encounterProGerman Hospital SystemReason for referral (narrative)* Consultation (Routine) - Pending Review Specialty Diagnoses / Procedures Referred By Mindy gaitan Referred To Contact Urology Diagnoses Urinary frequency Procedures [place] OFFICE/OUTPATIENT NEW HIGH [facility] 60 MINUTES Kvng Linton MD [address] [place] [id number] Vee Hatfield MD [address] [place] [address] Referral ID Status Reason Start Date Expiration Date Visits Requested Visits Authorized [id number] Pending Review Specialty Services Required 09/04/2023 03/02/2024 1 1 * Consultation (Routine) - Pending Review Specialty Diagnoses / Procedures Referred By Contac t Referred To Contact Neurology Diagnoses TIA (transient ischemic attack) Procedures [place] OFFICE/OUTPATIENT NEW HIGH [facility] 60 MINUTES Kvng Litnon MD [address] [facility] [address] [place] [address] Damion Longo MD [address] [place] [address] Referral ID Status Reason Start Date Expiration Date Visits Requested Visits Authorized [id number] Pending Review Specialty Services Required 09/04/2023 03/02/2024 1 1 * Imaging (Routine) - Pending Review Specialty Diagnoses / Procedures [facility] Referred To Contact Cardiology Diagnoses TIA (transient ischemic attack) Procedures Echocardiogram 2D complete Kvng Linton MD [address] [facility] [address] [place] [address] Referral ID Status Reason Start Date Expiration Date Visits Requested Visits Authorized [id number] Pending Review Perform Procedure 09/04/2023 03/02/2024 1 1 [facility] Summary Purpose Family History No Family History Records FoundNo Family History Records FoundNo Family History Records FoundNo Family History Records FoundNo Family History Records FoundNo Family History Records FoundNo Family History Records Found Advance Directives No Advanced Directives Records FoundNo Advanced Directives Records FoundNo Advanced Directives Records FoundNo Advanced Directives Records FoundNo Advanced Directives Records FoundNo Advanced Directives Records FoundNo Advanced Directives Records Found Additional Source Comments INFORMATION SOURCE (unrecogn ized section and content) DATE CREATED AUTHOR 12/28/2022 [facility] DATE CREATED AUTHOR AUTHOR'S ORGANIZ ATION 09/07/2023 [facility] DATE CREATED AUTHOR AUTHOR'S ORGANIZ ATION 11/01/2023 [facility] DATE CREATED AUTHOR AUTHOR'S ORGANIZ ATION 11/30/2023 [facility] DATE CREATED AUTHOR AUTHOR'S ORGANIZ ATION 12/20/2023 [facility] DATE CREATED AUTHOR AUTHOR'S ORGANIZ ATION [facility] DATE CREATED AUTHOR AUTHOR'S ORGANIZ ATION 02/10/2024 [facility] EPIC Care Teams (unrecognized sec tion and content) Contract Design Agent Relationship Specialty Start Date End Date Kvng Linton MD [address] [place] [place] [address] PCP - General Internal Medicine 11/27/22 Kvng Linton MD [address] [place] [place] [address] PCP - Rashid GALVEZ 07/22/23 Contract Design Agent Relationship Specialty Start Date End Date Kvng Linton MD [address] [place] [place] [address] PCP - General Internal Medicine 11/27/22 Kvng Linton MD [address] [place] [place] [address] PCP - Rashid GALVEZ 07/22/23 Contract Design Agent Relationship Specialty Start Date End Date Kvng Linton MD [address], [address] [place] [id number] PCP - General Internal Medicine 11/30/20 Reason for Visit (unrecogniz ed section and content) Reason Comments Follow-up [facility] stay admitted 2/ 3/24 dx: TIA discharged home 08/25/23 advised to take ASA 325mg FOR RECORDS PERTAINING TO PATIENTS WHO ARE OR HAVE BEEN ENROLLED IN A CHEMICAL DEPENDENCY/SUBSTANCEABUSE PROGRAM, SOME INFORMATION MAY BE OMITTED. This clinical summary was aggregated from multiple sources. Caution should be exercised in using it in the provision of clinical care. This summary normalizes information from multiple sources, and as a consequence, information in this document may materially change the coding, format and clinical context of patient data. In addition, data may be omitted in some cases. CLINICAL DECISIONS SHOULD BE BASED ON THE PRIMARY CLINICAL RECORDS. [facility] [employer] [facility]. provides no warranty or guarantee of the accuracy or completeness of information in this document.
== END 2024-02-26 10:55 | disposition home or self-care (01) ==
LOC: RAD 10:54
PROVIDERS: PCP Internal Medicine; Visit Provider Physician Assistant
DX: M85.89 Other specified disorders of bone density and structure, multiple sites (principal); E28.39 Other primary ovarian failure; M85.80 Other specified disorders of bone density and structure, unspecified site
CPT/HCPCS: 77080

== ENCOUNTER 2024-11-10 00:25 | Emergency (ER) | payer MEDICARE, SELFPAY ==
[2024-11-10 00:30] VITALS: BP 209/87; PULSE 73; TEMP 36.6; O2SAT 98; BMI 21.4
--- NOTE | 2024-11-10 00:51 | ED_ITS ---
HPI HPI - General Adult General Chief complaint: Recheck/Abnormal Lab/Rx Stated complaint: HIGH BLOOD PRESSURE Time Seen by Provider: 11/10/24 00:33 Source: patient Mode of arrival: walk-in Limitations: no limitations History of Present Illness HPI narrative: This 78-year-old female presents for evaluation of elevated blood pressure. The patient states she has had a vague headache for the past 3 days. This prompted her to take her blood pressure and at home it was markedly elevated. It was almost 200/90 at home. She has marked down multiple blood pressure readings. She states her blood pressure is typically in the 140s to 150s. She has not been taking her losartan for the past several months because she states when she was taking it it would make her very sleepy and she has too much to do to be tired all the time. She states her family physician, Dr. Martini, does not know what that she stopped taking her blood pressure medication. She denies any chest pain or shortness of breath. She has no abdominal pain or back pain. She has no lower extremity pain or swelling. She does have a large callus on the medial aspect of her right foot that she wants me to take a look at but otherwise no extremity issues. She does not have any slurred speech, change in her vision, confusion or focal neurologic weakness numbness or tingling. She did recently contact her family physician and was put on olmesartan because her insurance no longer covers the losartan that she has been on in the past. She did have an admission in 2022 when she was admitted for a TIA/stroke workup. She does not have any ongoing symptoms related to that. Related Data Home Medications ?Medication ?Instructions ?Recorded ?Confirmed gabapentin 600 mg tablet 300 mg PO TID 08/24/23 11/10/24 meloxicam 15 mg tablet 15 mg PO DAILY 08/24/23 11/10/24 ropinirole 0.5 mg tablet 0.5 mg PO BID PRN restless leg(s) 08/24/23 11/10/24 Allergies Allergy/AdvReac Type Severity Reaction Status Date / Time No Known Drug Allergies Allergy Verified 11/10/24 01:03 Opioid HPI Opioid Management Most Recent Opioid Data: No Data to Display Review of Systems ROS Status of ROS 10 or more systems reviewed and unremark able except as noted in history and below [facility] Medical History (Updated 11/10/24 @ 01:50 by Cathi Wilson MD) Peripheral neuropathy ?G62.9 - Polyneuropathy, unspecified (ICD-10) Restless leg syndrome ?G25.81 - Restless legs syndrome (ICD-10) Hypokalemia ?E87.6 - Hypokalemia (ICD-10) Iron deficiency anemia ?D50.9 - Iron deficiency anemia, unspecified (ICD-10) Hypertension ?I10 - Essential (primary) hypertension (ICD-10) Transient ischemic attack ?G45.9 - Transient cerebral ischemic attack, unspecified (ICD-10) Paresthesia ?R20.2 - Paresthesia of skin (ICD-10) Social History Little interest or pleasure in doing things: not at all Feeling down, depressed, or hopeless: not at all Exam Narrative Exam Narrative: Vital signs and Nursing Notes reviewed: Patient is afebrile with a normal pulse, blood pressure is elevated at 209/87, she is not hypoxic with pulse ox of 98% on room air General: Awake, alert, oriented, no acute distress, lying comfortably on the stretcher HEENT: Normocephalic atraumatic, mucous membranes are moist and pink, eyes are clear, normal conjunctiva, vision is grossly intact, funduscopic exam is normal, posterior pharynx is normal in appearance. Neck: Supple, no meningeal signs, no carotid bruits appreciated Chest: Lungs are clear to auscultation with good air entry, there is no wheezing rhonchi or rales appreciated no accessory muscle use, patient is speaking in complete sentences-no chest wall tenderness to palpation CVS: Regular rate and rhythm S1-S2, no murmurs rubs or gallops, pulses are brisk and equal bilaterally ABD: Soft, nondistended, nontender, no rebound guarding or rigidity, bowel sounds are normal, no pulsatile masses appreciated Extremities: Moving all extremities, no lower extremity tenderness or swelling noted, negative Homans' sign, pulses are brisk and equal bilaterally, approximately 2 cm irregular dry protuberant callus on the medial aspect of the right foot without any local erythema or swelling. 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 in the past Skin: Normal in appearance without rash,pallor, petechiae or purpura Neuro: No focal deficits Constitutional Vital Signs, click to edit/add: Last Vital Signs Temp 97.9 F 11/10/24 00:30 Pulse 64 11/10/24 01:19 Resp 13 11/10/24 01:19 BP 152/79 H 11/10/24 01:30 Pulse Ox 98 11/10/24 00:30 Course Vital Signs Vital signs: Vital Signs Temperature 97.9 F 11/10/24 00:30 Pulse Rate 73 11/10/24 00:30 Respiratory Rate 18 11/10/24 00:30 Blood Pressure 209/87 H 11/10/24 00:30 Pulse Oximetry 98 11/10/24 00:30 Temperature 97.9 F 11/10/24 00:30 Pulse Rate 64 11/10/24 01:19 Respiratory Rate 13 11/10/24 01:19 Blood Pressure 152/79 H 11/10/24 01:30 Pulse Oximetry 98 11/10/24 00:30 Medical Decision Making MDM Narrative Medical decision making narrative: This 78-year-old female presents for evaluation of a vague headache and high blood pressure. She has had a headache for the past 3 days which prompted her to check her blood pressure at home. Her blood pressure was high at home prompting her to come to the emergency department. She admits that she has been off of her losartan for the past 4 to 5 months. She states that her insurance stopped covering it. She did recently contact her family physician and was placed on olmesartan instead. She also takes a statin medication. She had t aken Tylenol before arrival and her headache was not bothering her. She has no focal neurologic symptoms. She is not having any chest pain, shortness of breath, dizziness, weakness or numbness. She has no neck pain or stiffness. She has no carotid bruits. Funduscopic exam is normal. EKG was a sinus rhythm at 63 bpm. An IV was placed and she was medicated with 10 mg of IV labetalol and a cardiac workup was ordered. She has a normal white count and hemoglobin. Electrolytes including BUN and creatinine are normal. Liver function tests are normal. Troponin is normal. She has been on the school lunch monitor and her repeat blood pressure at the time of this dictation is 152/78. She will be discharged home with a prescription for clonidine to use as needed for blood pressure greater than 170 systolic with recommendation for close follow-up with her family physician. She does admit that she had only taken one of the olmesartan tablets and it may have not been in her system long enough to bring her blood pressure down effectively. Lab Data Lab results reviewed: Yes I reviewed the patient's lab results Labs: Lab Results 11/10/24 Range/Units 00:40 WBC 5.5 (4.0-11.0) 10^3/uL RBC 3.95 L (4.20-5.40) 10^6/uL Hgb 12.3 (12.0-16.0) g/dL Hct 37.3 (36.0-48.0) % MCV 94.4 (81.0-99.0) fL MCH 31.1 (26.7-34.0) pg MCHC 33.0 (29.9-35.2) g/dL RDW 12.2 (11.0-15.0) % Plt Count 297 (150-450) 10^3/uL MPV 8.9 L (9.5-13.5) fL Neut % (Auto) 39.2 L (43.0-75.0) % Lymph % (Auto) 45.8 (20.5-60.0) % [place] % (Auto) 9.3 (1.7-12.0) % Eos % (Auto) 4.4 (0.9-7.0) % Baso % (Auto) 1.1 (0.2-2.0) % Neut # (Auto) 2.2 (1.4-6.5) 10^3/uL Lymph # (Auto) 2.5 (1.2-3.8) 10^3/uL [place] # (Auto) 0.5 (0.3-0.8) 10^3/uL Eos # (Auto) 0.2 (0.0-0.7) 10^3/uL Baso # (Auto) 0.1 (0.0-0.1) 10^3/uL Abs Immat Gran (auto) 0.01 (0.00-0.03) 10^3/uL Imm/Tot Granulo (auto) 0.2 (0.0-0.5) % Sodium 142 (136-145) mmol/L Potassium 3.7 (3.5-5.1) mmol/L Chloride 105 (98-107) mmol/L Carbon Dioxide 30.2 (21.0-32.0) mmol/L Anion Gap 10.5 BUN 16.0 (7.0-18.0) mg/dL Creatinine 0.97 (0.55-1.02) mg/dL Est GFR ( Amer) >60 (>=60 mL/min/1.73m^2) Est GFR (Non-Af Amer) 56 L (>=60 mL/min/1.73m^2) BUN/Creatinine Ratio 16.5 Glucose 116 H (74-106) mg/dL Calcium 9.2 (8.5-10.1) mg/dL Total Bilirubin 0.3 (0.2-1.0) mg/dL AST 15 (15-37) U/L ALT 19 (14-59) U/L Alkaline Phosphatase 86 (46-116) U/L Troponin I High Sens 4.3 (4.0-51.3) pg/mL Total Protein 6.6 (6.4-8.2) g/dL Albumin 3.3 L (3.4-5.0) g/dL Globulin 3.3 g/dL Albumin/Globulin Ratio 1.0 ECG Data Attestation: I personally reviewed and interpreted this ECG as follows: (Sinus rhythm at 63 beats per night, normal axis, normal intervals, no acute ST segment elevation or T wave inversion) Discharge Plan Discharge Chief Complaint: Recheck/Abnormal Lab/Rx Clinical Impression: Hypertension Patient Disposition: Home, Self-Care Time of Disposition Decision: 01:50 Condition: Good Prescriptions / Home Meds: No Action gabapentin 600 mg tablet 300 mg PO TID meloxicam 15 mg tablet 15 mg PO DAILY ropinirole 0.5 mg tablet 0.5 mg PO BID PRN (Reason: restless leg(s)) Print Language: Ethiopian Instructions: Heart Healthy Diet (ED), Chronic Hypertension (ED), Hypertension (ED), Hypertension in the Older Adult (ED) Referrals: SAMIR MARTINI [Primary Care Provider] - 1 week Discharge Date/Time: 11/10/24 02:13
--- NOTE | 2024-11-10 00:51 | ECG_ITS ---
[facility] Test Date: 2024-11-10 Pat Name: JESSICA SILVA Department: Room: - Gender: Female Manager Internet: : 1945 Requested By: [id number] Order Number: [id number] Reading MD: GUILLAUME GEORGE Measurements Intervals Miracle Rate: 63 P: 53 AL: 198 QRS: 67 QRSD: 84 T: 73 QT: 414 QTc: 422 Interpretive Statements 1100 Sinus rhythm 9110 normal ECG Compared to ECG 08/24/2023 16:41:56 Incomplete right bundle-branch block no longer present Electronically Signed On 11-10-2024 11:04:17 EDT by GUILLAUME GEORGE
[2024-11-10 00:59] LABS: Basophils Absolute Auto 0.1 10^3/uL (0.0-0.1); Basophils Percent Auto 1.1 % (0.2-2.0); Eosinophils Absolute Auto 0.2 10^3/uL (0.0-0.7); Eosinophils Percent Auto 4.4 % (0.9-7.0); Hematocrit 37.3 % (36.0-48.0); Hemoglobin 12.3 g/dL (12.0-16.0); Immature Granulocytes Abs Auto 0.01 10^3/uL (0.00-0.03); Immature Granulocytes Pct Auto 0.2 % (0.0-0.5); Lymphocytes Absolute Auto 2.5 10^3/uL (1.2-3.8); Lymphocytes Percent Auto 45.8 % (20.5-60.0); Mean Corpuscular Hemoglobin 31.1 pg (26.7-34.0); Mean Corpuscular Volume 94.4 fL (81.0-99.0); Mean Platelet Volume 8.9 fL (9.5-13.5); Monocytes Absolute Auto 0.5 10^3/uL (0.3-0.8); Monocytes Percent Auto 9.3 % (1.7-12.0); Neutrophils Absolute Auto 2.2 10^3/uL (1.4-6.5); Neutrophils Percent Auto 39.2 % (43.0-75.0); Platelet Count 297 10^3/uL (150-450); Red Blood Count 3.95 10^6/uL (4.20-5.40); Red Cell Distribution Width 12.2 % (11.0-15.0); White Blood Count 5.5 10^3/uL (4.0-11.0)
[2024-11-10] MEDS: LABETALOL HCL 20 MG/4 ML SYRINGE 10 MG IVP (01:12)
[2024-11-10 01:18] VITALS: PULSE 65
[2024-11-10 01:19] VITALS: PULSE 64
[2024-11-10 01:19] LABS: Alanine Aminotransferase 19 U/L (14-59); Albumin Level 3.3 g/dL (3.4-5.0); Alkaline Phosphatase 86 U/L (46-116); Anion Gap 10.5; Aspartate Amino Transferase 15 U/L (15-37); BUN Creatinine Ratio 16.5; Bilirubin Total 0.3 mg/dL (0.2-1.0); Calcium 9.2 mg/dL (8.5-10.1); Carbon Dioxide 30.2 mmol/L (21.0-32.0); Chloride 105 mmol/L (98-107); Estimated GFR (African America >60 (>=60 mL/min/1.73m^2); Estimated GFR (Non-African Ame 56 (>=60 mL/min/1.73m^2); Globulin 3.3 g/dL; Glucose 116 mg/dL (74-106); Potassium 3.7 mmol/L (3.5-5.1); Sodium 142 mmol/L (136-145); Total Protein 6.6 g/dL (6.4-8.2); Troponin I High Sensitivity 4.3 pg/mL (4.0-51.3)
[2024-11-10 01:21] VITALS: BP 158/79
[2024-11-10 01:28] VITALS: PULSE 82
[2024-11-10 01:30] VITALS: BP 152/79
== END 2024-11-10 02:13 | disposition home or self-care (01) ==
PROVIDERS: Emergency Provider Emergency Medicine; PCP Internal Medicine
DX: I10 Essential (primary) hypertension (principal); L84 Corns and callosities; Z79.899 Other long term (current) drug therapy
CPT/HCPCS: 36415; 80053; 84484; 85025; 93005; 96374; 99284; J1920

== ENCOUNTER 2025-01-12 11:27 | Outpatient (OUT) | payer MEDICARE, SELFPAY | END 2025-01-12 11:28 | disposition home or self-care (01) | LOC: WC 11:27 | PROVIDERS: PCP Internal Medicine; Visit Provider Physician Assistant | DX: L97.415 Non-pressure chronic ulcer of right heel and midfoot with muscle involvement without evidence of necrosis (principal) | CPT/HCPCS: 11043; G0463 ==

== ENCOUNTER 2025-01-27 12:05 | Outpatient (OUT) | payer MEDICARE, SELFPAY ==
--- NOTE | 2025-01-27 12:07 | XR_ITS ---
[address] [address] Patient Name: JESSICA SILVA MRN: [id number] date: 1945 Sex: F Assigned Patient Location: [facility] Current Patient Location: Accession/Order Number: [id number] Exam Date: 01/27/2025 15:38 Report Date: 01/27/2025 15:41 At the request of: ANUP JOHN DPNabor Procedure: XR foot RT min 3V 3 views right foot plain film COMPARISON:10/22/2022 HISTORY: Reassessment of hardware. Ulcer bottom of great toe. ACUTE FINDINGS: None DEGENERATIVE CHANGE: Similar articular erosive changes of the phalanges and first metatarsal phalangeal joint. SOFT TISSUE FINDINGS: No subcutaneous air. No radiodense foreign body. JOINT EFFUSION: None POSTOP CHANGES: Stable fusion hardware. Second toe amputation stable. BONE MINERALIZATION: Adequate XR/XR foot RT min 3V IMPRESSION: Stable findings. No hardware failure. Similar erosive changes. No subcutaneous air. Impression dictated by: Lew Fish M.D. 01/27/2025 3:41 PM Dictation Location: [place] [address] Electronically authenticated by: [id number] Y Date: 01/27/2025 15:41
== END 2025-01-27 12:06 | disposition home or self-care (01) ==
LOC: RAD 12:05
PROVIDERS: PCP Internal Medicine; Visit Provider Podiatrist Foot & Ankle Surgery
DX: L97.519 Non-pressure chronic ulcer of other part of right foot with unspecified severity (principal)
CPT/HCPCS: 73630

== ENCOUNTER 2025-01-27 12:59 | Outpatient (OUT) | payer MEDICARE, SELFPAY ==
--- OUTSIDE RECORDS SUMMARY | 2024-12-11 10:45 | XMS_ITS ---
Author Organization [facility] Servic es Address [address] [place] [address] Care Team Providers Care Wash Driller Helper Name Role Phone Araceli Woo Primary Care Provider Johanna Wheat Unavailable [phone] REASON FOR VISIT FILLING Encounters Encounter Location Date Provider Diagnosis [facility] [address] [place] [address] 12/11/2024 Johanna Haynes Plan Of Treatment Next Appt Details Provider Name:Araceli ferrera, 04/02/2025 01:00:00 PM, [address] [place], [address], Progress Notes * JESSICA SILVA EDOB: 8 (79 yo F)Acc No.[id number]:12/11/2024 Patient: JESSICA TOLENTINO Provider: Zohra HAYNES DDS :1945 A ge:79 Y S ex:Female Date:12/11/2024 Address:[address] [place] [address] [address], [place], [place] Pcp:Araceli Woo Subjective: * Chief Complaints: * 1 . FILLING. * Medical History: Objective: * Vitals: Assessment: Plan: * Treatment: * Images: * Electronic signature of Caroline Haynes DDS on 01/27/2025 at 01:01 PM EDT Sign off status: Pending * Provider: Zohra HAYNES DDS Date: 0 12/11/2024 Generated for Percy Packer/Jono on: 0 01/27/2025 01:01 PM EDT
--- OUTSIDE RECORDS SUMMARY | 2024-12-24 10:30 | XMS_ITS ---
Author Organization [facility] Servic es Address [address] [place] [address] Care Team Providers Care Auto Body Repair Teacher Name Role Phone Araceli Woo Primary Care Provider REASON FOR VISIT IMPRESSIONS- DR. Hodge Encounters Encounter Location Date Provider Diagnosis [facility] [address] [place] [address] 12/24/2024 Araceli Woo Plan Of Treatment Next Appt Details Provider Name:Araceli ferrera, 04/02/2025 01:00:00 PM, [address] [place], [address], Progress Notes * JESSICA SILVA EDOB: 8 (79 yo F)Acc No.[id number]:12/24/2024 Dental Appointment Patient: JESSICA TOLENTINO Provider: Mercedez Woo DDS :1945 A ge:79 Y S ex:Female Date:12/24/2024 Address:[address] [place] [address] 1 , [facility] Subjective: * Chief Complaints: * 1 . IMPRESSIONS- DR. Strong * Medical History: Objective: * Vitals: Assessment: Plan: * Treatment: * Images: * Electronic signature of Consuelo Woo DDS on 01/27/2025 at 01:02 PM EDT Sign off status: Pending * Provider: Mercedez Woo DDS Date: 0 12/24/2024 Generated for Percy lou/Hilaria/Jono on: 0 01/27/2025 01:02 PM EDT
--- OUTSIDE RECORDS SUMMARY | 2025-01-27 13:01 | XMS_ITS | Encounter Summary ---
Author Organization [facility] Address [address] [place] [address] Care Team Providers Care Pai Gow Dealer Name Role Phone Kvng Linton MD Primary Care Provider Kvng Linton MD Unavailable [phone] Saturday, Elvi [employer] [employer] Unavailable [phone] Heydi Parker RN Unavailable [phone] Palma Reina [employer] Unavailable Encounter Details Date Type Department Care Team (Late Contact Info) Description 03/14/2023 Abstract [facility] [address] [facility] [address] [place] [address] Katie Rosas, PARKING ENFORCEMENT OFFICER [address] [facility] [address] [place], [place] [id number] Social History Tobacco Use Types Packs/Day Years Used Date Smoking Tobacco: Former Cigarettes Q uit: 1992 Smokeless Tobacco: Never Tobacco Cessation:Counseling Given: Not Answered Alcohol Use Standard Drinks/Week Comments Not Asked 0 (1 standard drink = 0.6 oz pure alcohol) caffeine intake: more than 4 cups per day. Comments Unknown Sex and Gender Information Value Date Recorded Sex Assigned at Not on file Legal Sex Female 7:12 PM EDT Gender Identity Not on file Sexual Orientation Not on file documented as of this encounter Plan of Treatment Upcoming Encounters Date Type Department Care Team (Late Contact Info) Description 03/02/2025 3:15 PM EDT Office Visit [facility] [address] [place] [address] Katlin Triplett MD [address] [place] [address] documented as of this encounter Visit Diagnoses Not on filedocumented in this encounter Care Teams Pai Gow Dealer Relationship Specialty Start Date End Date Kvng Linton MD [address] [place] [address] PCP - General Internal Medicine 11/27/22 Kvng Linton MD [address] [place] [address] PCP - Rashid GALVEZ 07/22/23SaturdayElvi LPN [address] [place] [address] Licensed Practical Nurse Family Medicine 02/26/24 08/28/24 Heydi Parker, FAUSTO [address] [place] [address] Licensed Practical Nurse Family Medicine 08/28/24 10/06/24 Reina Palma LPN [address] [place] [address] 10/06/24 documented as of this encounter
--- OUTSIDE RECORDS SUMMARY | 2025-01-27 13:01 | XMS_ITS | Encounter Summary ---
Author Organization [facility] Address [address] [place] [address] Care Team Providers Care Communications Clerk Name Role Phone Kvng Linton MD Primary Care Provider Kvng Linton MD Unavailable [phone] Saturday, Elvi BACKER UP Unavailable [phone] Heydi Parker RN Unavailable Palma Reina [employer] Unavailable Encounter Details Date Type Department Care Team (Late st Contact Info) Description 04/11/2023 Orders Only [facility] [address] [place] [address] Kvng Linton MD [address] [facility] 110 [place], [place] [address] Social History Tobacco Use Types Packs/Day Years Used Date Smoking Tobacco: Former Cigarettes Q uit: 1992 Smokeless Tobacco: Never Alcohol Use Standard Drinks/Week Comments Not Asked [...] Encounters Date Type Department Care Team (Late st Contact Info) Description 03/02/2025 3:15 PM EDT Office Visit [facility] [address] [place] [address] Katlin Triplett MD [address] [place], [place] [address] documented as of this encounter Procedures Procedure Name Priority Date/Time Associated Diagnosis Comments MAMMOGRAM* Routine 04/09/2023 3:27 PM EDT documented in this encounter Results * MAMMOGRAM* (04/09/2023 3:27 PM EDT) Anatomical Region Laterality Modality Radiographic Jaquelin ging us Kvng Linton MD IMG XR PROCEDURES Final Result documented in this encounter Visit Diagnoses Not on filedocumented in this encounter Care Teams Communications Clerk Relationship Specialty Start Date End Date Kvng Linton MD [address] [place] [address] PCP - General Internal Medicine 11/27/22 Kvng Linton MD [address] [place] [address] PCP - Rashid GALVEZ 07/22/23SaturdayElvi LPN [address] [place] [address] Licensed Practical Nurse Family Medicine 02/26/24 08/28/24 Heydi Parker, FAUSTO [address] [place] [place] [address] Licensed Practical Nurse Family Medicine 08/28/24 10/06/24 Reina Palma LPN [address] [place] [address] 10/06/24 documented as of this encounter
--- OUTSIDE RECORDS SUMMARY | 2025-01-27 13:01 | XMS_ITS | Encounter Summary ---
Author Organization [facility] Address [address] [place] [address] Care Team Providers Care Caseworker Intake Name Role Phone Kvng Linton MD Primary Care Provider [phone] Kvng Linton MD Unavailable [phone] Saturday, Elvi CHIMNEY MECHANIC Unavailable [phone] Heydi Parker RN Unavailable Reina Palma CHIMNEY MECHANIC Unavailable Encounter Details Date Type Department Care Team (Late st Contact Info) Description 04/10/2023 Clinisync Result Encounter [facility] External Department Unsolicited Kvng Linton MD 112 [facility] 110 [place] [address] Social History Tobacco Use Types Packs/Day Years [...] [address] [place] [address] Katlin Triplett MD [address] [place] [address] documented as of this encounter Procedures Procedure Name Priority Date/Time Associated Diagnosis Comments MM TOMOSYNTHESIS SCREENING BI 04/10/2023 2:57 PM EDT documented in this encounter Results * MM TOMOSYNTHESIS SCREENING BI (04/10/2023 2:57 PM EDT) Anatomical Region Laterality Modality Other 04/10/2023 2:57 PM EDT Narrative 04/10/2023 2:57 PM EDT [address] [address] Mammography Report Signed Patient: BERENICE DISLA MR#: [id number] : 1945 Acct:[id number] Age/Sex: 77 / F ADM Date: 04/09/23 Loc: MAMMO Attending Dr: KVNG LINTON Ordering Physician: KVNG LINTON Results: Date of Service: 04/09/23 Follow Up: Procedure(s): MM tomosynthesis screening BI Accession Number(s): [id number] cc: KVNG LINTON Patient: BERENICE DISLA Exam Date: 04/09/2023 : 1945 Gender:F Ordering : DR KVNG LINTON M.D. Admission #: [id number] Family : Order #: [id number] CLICK HERE TO VIEW EXAM RADIOLOGY REPORT PROCEDURE: MM TOMOSYNTHESIS SCREENING BI COMPARISON: MG MAMM SCREEN 3D MARCO A CAD, 08/18/2021. MG MAMM SCREEN MARCO A W CAD, 03/25/2020. MG MAMM SCREEN MARCO A W CAD, 11/07/2018. MG MAMM MARCO A DIAG W CAD DIG, 11/04/2014. INDICATIONS: Z12.31 Calculator Name NCI Breast Cancer Risk Assessment Tool 5 Year Breast Cancer Risk 3.30% Lifetime Breast Cancer Risk 7.00% Personal Breast Cancer No Personal Ovarian Cancer No Treatments None Family Cancers Mother with breast cancer at age 47; Cousin-maternal with ovarian cancer at age 50. LOCATION: [facility] BREAST COMPOSITION: Scattered areas fibroglandular density. FINDINGS: DIAGNOSTIC CATEGORY 2--BENIGN FINDING: RIGHT BREAST: No significant suspicious finding. Scattered benign-appearing lymph nodes are present. No significant change has occurred. LEFT BREAST: No significant suspicious finding. Scattered benign-appearing calcifications are present. Scattered benign-appearing nodules are present. No significant change has occurred. RECOMMENDATIONS: ROUTINE MAMMOGRAM AND CLINICAL EVALUATION IN 12 MONTHS. PLEASE NOTE: A NORMAL MAMMOGRAM DOES NOT EXCLUDE THE POSSIBILITY OF BREAST CANCER. A CLINICALLY SUSPICIOUS PALPABLE LUMP SHOULD BE BIOPSIED. Dictated by: Tariq Levin M.D. on 04/10/2023 at 14:54 Approved by: Tariq Levin M.D. on 04/10/2023 at 14:56 Dictated By: Tariq Levin M.D. Signed By: 04/10/23 1458 DD/ 1457 TD/TT: Manager Respiratory: Procedure Note Radiology, Radiologist, MD - 04/12/2023 [place] [address] Mammography Report Signed Patient: BERENICE DISLA EMR#: [id number] : 1945cct:[id number] Age/Sex: 77 / FADM Date: 04/09/23 Loc: MAMMO Attending Dr: KVNG LINTON Ordering Physician: Marge LINTONults: Date of Service: 04/09/23Follow Up: Procedure(s): MM tomosynthesis screening BI Accession Number(s): [id number] cc: KVNG LINTON Patient: BERENICE DISLA Exam Date: 04/09/2023 : 1945 Gender:F Ordering : DR KVNG LINTON M.D. Admission #: [id number] Family : Order #: [id number] CLICK HERE TO VIEW EXAM RADIOLOGY REPORT PROCEDURE: MM TOMOSYNTHESIS SCREENING BI COMPARISON: MG MAMM SCREEN 3D MARCO A CAD, 08/18/2021. MG MAMM SCREEN BILW CAD, 03/25/2020. MG MAMM SCREEN MARCO A W CAD, 11/07/2018. MG MAMM MARCO A DIAG WCAD DIG, 11/04/2014. INDICATIONS: Z12.31 Calculator Name NCI Breast Cancer Risk Assessment Tool 5 Year Breast Cancer Risk 3.30% Lifetime Breast Cancer Risk 7.00% Personal Breast Cancer No Personal Ovarian Cancer No Treatments None Family Cancers Mother with breast cancer at age 47; Cousin-maternal with ovarian cancer at age 50. LOCATION: [facility] BREAST COMPOSITION: Scattered areas fibroglandular density. FINDINGS: DIAGNOSTIC CATEGORY 2--BENIGN FINDING: RIGHT BREAST: No significant suspicious finding. Scatteredbenign-appearing lymph nodes are present. No significant change has occurred. LEFT BREAST: No significant suspicious finding. Scatteredbenign-appearing calcifications are present. Scattered benign-appearing nodules arepresent. No significant change has occurred. RECOMMENDATIONS: ROUTINE MAMMOGRAM AND CLINICAL EVALUATION IN 12 MONTHS. PLEASE NOTE: A NORMAL MAMMOGRAM DOES NOT EXCLUDE THE POSSIBILITY OFBREAST CANCER. A CLINICALLY SUSPICIOUS PALPABLE LUMP SHOULD BE BIOPSIED. Dictated by: Tariq Levin M.D. on 04/10/2023 at 14:54 Approved by: Tariq Levin M.D. on 04/10/2023 at 14:56 Dictated By: Tariq Levin M.D. Signed By:04/10/23 1458 DD/ 1457 TD/TT: Manager Respiratory: Kvng Linton MD [facility] Final Result documented in this encounter Visit Diagnoses Not on filedocumented in this encounter Care Teams Caseworker Intake Relationship Specialty Start Date End Date Kvng Linton MD [address] [facility] [address] [place] [address] PCP - General Internal Medicine 11/27/22 Kvng Linton MD [address] [place] [address] PCP - Rashid GALVEZ 07/22/23SaturdayElvi LPN [address] [place] [address] Licensed Practical Nurse Family Medicine 02/26/24 08/28/24 Heydi Parker, RN [address] [place] [address] Licensed Practical Nurse Family Medicine 08/28/24 10/06/24 Reina Palma LPN 112 [facility] 110 [place] [address] 10/06/24 documented as of this encounter
--- OUTSIDE RECORDS SUMMARY | 2025-01-27 13:01 | XMS_ITS | Encounter Summary ---
Author Organization [facility] Address [address] [place] [address] Care Team Providers Care Finance Executive Name Role Phone Kvng Linton MD Primary Care Provider Kvng Linton MD Unavailable [phone] Saturday, Elvi SITE IDENTIFICATION SPECIALIST Unavailable [phone] Heydi Parker RN Unavailable Reina Palma SITE IDENTIFICATION SPECIALIST Unavailable Encounter Details Date Type Department Care Team (Late st Contact Info) Description 08/26/2023 Orders Only [facility] [address] [place] [address] A, Unknown Practice [address] [place], [place] [address] Social History Tobacco Use Types Packs/Day Years [...] DERM [address] [place] [address] Katlin Triplett MD [address] [place] [address] documented as of this encounter Procedures Procedure Name Priority Date/Time Associated Diagnosis Comments CT ANGIO NECK W CONTRAST Routine 08/24/2023 3:[address] ANGIO HEAD NECK Routine 08/24/2023 9:38 AM EST documented in this encounter Results * CT ANGIO NECK W CONTRAST (08/24/2023 3:22 PM EST) Anatomical Region Laterality Modality Radiographic Jaquelin ging us Unknown Practice A IMG XR PROCEDURES Final Resul t * CT angiogram head and neck (08/24/2023 9:38 AM EST) Anatomical Region Laterality Modality Head, Neck Computed Tomogra phy us Unknown Practice A IMG CT PROCEDURES Final Resul t documented in this encounter Visit Diagnoses Not on filedocumented in this encounter Care Teams Finance Executive Relationship Specialty Start Date End Date Kvng Linton MD [address] [place] [address] PCP - General Internal Medicine 11/27/22 Kvng Linton MD [address] [place] [address] PCP - Rashid GALVEZ 07/22/23SaturdayElvi LPN [address] [place] [address] Licensed Practical Nurse Family Medicine 02/26/24 08/28/24 Heydi Parker, FAUSTO [address] [place] [address] Licensed Practical Nurse Family Medicine 08/28/24 10/06/24 Reina Palma LPN [address] [place] [address] 10/06/24 documented as of this encounter
--- OUTSIDE RECORDS SUMMARY | 2025-01-27 13:01 | XMS_ITS | Encounter Summary ---
Author Organization [facility] [employer] [facility] tem Address [id number] [address] [place] [address] Care Team Providers Care Bridge Painter Helper Name Role Phone Kvng Linton MD Primary Care Provider [phone] Encounter Details Date Type Department Care Team (Late st Contact Info) Description 11/30/2020 Orders Only [facility] [address] [place] [address] Kvng Linton MD 112 [facility] 110 [place] [address] Social History Tobacco Use Types Packs/Day Years Used Date Smoking Tobacco: Former Smokeless Tobacco: Never Alcohol Use Standard Drinks/Week Comments Not Currently 0 (1 standard drink = 0.6 oz pur e alcohol) Childcare Answer Date Recorded Childcare Unknown 12/31/2018 Employment Answer Date Recorded Employment Unknown 12/31/2018 Comments Unknown Sex and Gender Information Value Date Recorded Sex Assigned at Not on file Legal Sex Female 11:37 AM EDT Gender Identity Not on file Sexual Orientation Not on file COVID-19 Exposure Response Date Recorded In the last month, have you been in contact with someone who was confirmed or suspected to have Coronavirus / COVID-19? No / Unsure 11/30/2020 8:59 AM EDT documented as of this encounter Plan of Treatment Not on file documented as of this encounter Procedures Procedure Name Priority Date/Time Associated Diagnosis Comments MR LUMBAR SPINE WO CONT Routine 11/10/2020 documented in this encounter Results * MR lumbar without contrast (11/10/2020) Anatomical Region Laterality Modality MSK, Neuro, Spine, L-spine, Spine Covera N/A Magnetic Resonance us Kvng Linton MD IMG MRI ORDERABLES Final Resul t documented in this encounter Visit Diagnoses Not on filedocumented in this encounter Care Teams Bridge Painter Helper Relationship Specialty Start Date End Date Kvng Linton MD 112 [facility] [address] [place] [address] PCP - General Internal Medicine 11/30/20 documented as of this encounter
--- OUTSIDE RECORDS SUMMARY | 2025-01-27 13:02 | XMS_ITS | Clinical Summary ---
Author Organization [employer] [facility] tem Address [facility] [id number] [address] [place] [address] Care Team Providers Care Production Inspector Name Role Phone Kvng Linton MD Primary Care Provider [phone] Allergies Active Allergy Reactions Criticality Noted Date Comments Amoxicillin-Pot Clavulanate 04/03/20 21 Other reaction(s): nausea Sulfa (Sulfonamide Antibiotics) 02/07/2022 Other reaction(s): itching Medications atorvastatin (LIPITOR) 10 mg tablet Take 1 tablet (10 mg total) by mouth in the morning. 09/22/2020 Active gabapentin (NEURONTIN) 600 mg tablet Take 1 tablet (600 mg total) by mouth 3 (three) times a day. 600 mg morning, afternoon, 300mg evening 10/24/2020 Active meloxicam (MOBIC) 15 mg tablet Take 1 tablet (15 mg total) by mouth in the morning. 09/04/2020 Active rOPINIRole (REQUIP) 0.5 mg tablet Take 2 tablets (1 mg total) by mouth in the morning and 2 tablets (1 mg total) before bedtime. 09/09/2020 Active traMADoL (ULTRAM) 50 mg tablet Take 1 tablet (50 mg total) by mouth daily as needed. 11/16/2020 Active multivitamin (THERAGRAN) tablet Take 1 tablet by mouth in the morning. Active losartan-hydroC HLOROthiazide (HYZAAR) 50-12.5 mg per tablet Take 1 tablet by mouth in the morning. 09/06/2023 Active UNABLE TO FIND Take 1 tablet by mouth in the morning. Jeni duran. Active UNABLE TO FIND Take 1 tablet by mouth in the morning. Turmeric Curcumin 500 mg. Active calcium carbonate/vitam in D3 (CALTRATE WITH VITAMIN D3 ORAL) Take 1 tablet by mouth in the morning. Active cholecalciferol , vitamin D3, 2,000 units tablet Take 0.5 tablets (1,000 Units total) by mouth in the morning. Active ascorbic acid, vitamin C, (VITAMIN C) 250 mg tablet Take 1 tablet (250 mg total) by mouth in the morning. Active Active Problems Problem Noted Date Diagnosed Date Piriformis syndrome of right side 10/31/2021 Lumbar neuritis 09/06/2021 Lumbar spondylosis 11/30/2020 Disorder of sacrum 11/30/2020 Family History Medical History Relation Name Comments No Known Problems Father Cancer Mother started Breast cancer then to bone and brain Relation Name Status Comments Father Mother Social History Tobacco Use Types Packs/Day Years Used Date Smoking Tobacco: Former Cigarettes Smokeless Tobacco: Never Tobacco Cessation:Counseling Given: Not Answered Alcohol Use Standard Drinks/Week Comments Not Currently 0 (1 standard drink = 0.6 oz pur e alcohol) Childcare Answer Date Recorded Childcare Unknown 12/31/2018 Employment Answer Date Recorded Employment Unknown 12/31/2018 Hunger Screening Answer Date Recorded Within the past 12 months we worried whether our food would run out before we got money to buy more. Never True 02/12/2024 Food Insecurity - Inability Not on file 01/20 Comments No Sex and Gender Information Value Date Recorded Sex Assigned at Not on file Legal Sex Female 11:37 AM EDT Gender Identity Not on file Sexual Orientation Not on file Last Filed Vital Signs Vital Sign Reading Time Taken Comments Blood Pressure 116/70 03/13/2024 9:05 AM EDT Pulse 66 03/13/2024 9:05 AM EDT Temperature 36.5 C (97.7 F) 03/13/2024 6:44 AM EDT Respiratory Rate 17 03/13/2024 9:05 AM EDT Oxygen Saturation 98% 03/13/2024 9:05 AM EDT Inhaled Oxygen Concentration - - Weight 62 kg (136 lb 11 oz) 03/13/2024 6:44 AM E DT Height 180 cm (5' 10.87 ) 03/13/2024 6:44 AM EDT Body Mass Index 19.14 03/13/2024 6:44 AM EDT Plan of Treatment Health Maintenance Due Date Last Done Comments Depression Screening 1957 Zoster (Shingles) Vaccine (1 of 2) 11/21/1997 Fall Risk Screening 11/21/2012 DTaP,Tdap and Td Vaccines (2 - Td or Tdap) 01/20/2022 01/21/2012 COVID-19 Vaccine (4 - 2023-2 5 season) 2024 08/09/2021, 10/07/2020, 09/16/2020 Tobacco Screening 03/13/2025 03/13/2024 Influenza Vaccine 03/22/2025 07/05/2022, , 04/12/2020, Additional history exists Medical Devices Implanted Type Area Residential Solar Sales Consultant Device Identifier Shelf Expiration Date Model / Serial / Lot Orthopedic Implant Orthopedic Implant Right: Foot Insurance [employer] MEDICARE Care Teams Production Inspector Relationship Specialty Start Date End Date Kvng Linton MD 112 [facility] 110 [place] [address] PCP - General Internal Medicine 11/30/20
--- OUTSIDE RECORDS SUMMARY | 2025-01-27 13:02 | XMS_ITS | Encounter Summary ---
Author Organization [facility] Address [address] [place] [address] Care Team Providers Care Stripper Opaquer Name Role Phone Kvng Linton MD Primary Care Provider [phone] Kvng Linton MD Unavailable [phone] Saturday, Elvi GRISTMILLER Unavailable [phone] Heydi Parker RN Unavailable [phone] Reina Palma GRISTMILLER Unavailable Encounter Details Date Type Department Care Team (Late st Contact Info) Description 08/26/2023 Abstract [facility] 112 [facility] 110 [place] [id number] Kvng Linton MD [address] [facility] 110 [place] [address] Social History Tobacco Use Types Packs/Day Years [...] DERM [address] [place] [address] Katlin Triplett MD [address] [place] [address] documented as of this encounter Visit Diagnoses Not on filedocumented in this encounter Care Teams Stripper Opaquer Relationship Specialty Start Date End Date Kvng Linton MD [address] [place] [address] PCP - General Internal Medicine 11/27/22 Kvng Linton MD [address] [place] [address] PCP - Rashid GALVEZ 07/22/23Saturday, MELISSA Boles [address] [place] [address] Licensed Practical Nurse Family Medicine 02/26/24 08/28/24 Heydi Parker, FAUSTO [address] [place] [place] [address] Licensed Practical Nurse Family Medicine 08/28/24 10/06/24 Reina Palma LPN [address] [place] [address] 10/06/24 documented as of this encounter
--- OUTSIDE RECORDS SUMMARY | 2025-01-27 13:02 | XMS_ITS | Encounter Summary ---
Author Organization [facility] Address [address] [place] [address] Care Team Providers Care Rn Pediatric Name Role Phone Kvng Linton MD Primary Care Provider [phone] Kvng Linton MD Unavailable [phone] Saturday, Elvi FINANCIAL ADVISOR TRAINEE Unavailable [phone] Heydi Parker RN Unavailable Reina Palma FINANCIAL ADVISOR TRAINEE Unavailable Encounter Details Date Type Department Care Team (Late st Contact Info) Description 07/30/2024 Abstract [facility] [address] [facility] 110 [place] [phone] Kvng Linton MD 112 [facility] 110 [place] [address] Social History Tobacco Use Types Packs/Day Years Used Date Smoking Tobacco: Former Cigarettes 0.5 27 0 07/30/1965 - 07/22/1992 Smokeless Tobacco: Never Alcohol Use Standard Drinks/Week Comments Never 0 (1 standard drink = 0.6 oz pure alcohol) caffeine intake: more than 4 cups per day. B1300 Health Literacy Answer Date Recor ded How often do you need to hav e someone help you when you read instructions, pamphlets, or other written material from your doctor or pharmacy? Never 03/05/2024 Social Connection and Isolation Panel [NHANES] A nswer Date Recorded Frequency of Communication with Friends and Fami ly Not on file 03/05/2024 Frequency of Social Gatherings with Friends and Family Not on file 03/05/2024 Attends Sabianism Services Not on file 03/05 Active Member of Clubs or Organizations Not on f ile 03/05/2024 Attends Club or Organization Meetings Not on hanna e 03/05/2024 Are you , , di vorced, , never , or living with a partner? 03/05/2024 AUDIT-C Answer Date Recorded Q1: How often do you have a drink containing alcohol? Never 03/05/2024 Q2: How many drinks containi ng alcohol do you have on a typical day when you are drinking? Patient does not drink Q3: How often do you have si x or more drinks on one occasion? Never 03/05/2024 Overall Financial Resource Strain (CARDIA) Answe r Date Recorded How hard is it for you to pa y for the very basics like food, housing, medical care, and heating? Very hard 03/05/2024 PHQ-2 Answer Date Recorded Patient Health Questionnaire-2 Score 0 02/06/2024 [facility] - Occupational Stress Questionnaire Answer Date Recorded Do you feel stress - tense, restless, nervous, or anxious, or unable to sleep at night because your mind is troubled all the time - these days? Only a little 03/05/2024 Exercise Vital Sign Answer Date Recorde d On average, how many days pe r week do you engage in moderate to strenuous exercise (like a brisk walk)? Patient declined On average, how many minutes do you engage in exercise at this level? Patient declined 10/30/2023 Hunger Vital Sign Answer Date Recorded Within the past 12 months, y ou worried that your food would run out before you got the money to buy more. Never true 03/05/20 24 Within the past 12 months, t he food you bought just didn't last and you didn't have money to get more. Never true 03/05/2024 PRAPARE - Transportation Answer Date Re corded In the past 12 months, has l ack of transportation kept you from medical appointments or from getting medications? No 02/19 In the past 12 months, has l ack of transportation kept you from meetings, work, or from getting things needed for daily living? No 03/05/2024 Housing Stability Vital Sign Answer Kody e Recorded In the last 12 months, was t here a time when you were not able to pay the mortgage or rent on time? No 10/30/2023 In the last 12 months, how many places have you lived? 1 10/30/2023 In the last 12 months, was t here a time when you did not have a steady place to sleep or slept in a care home (including now)? No 10/30/2023 Housing Stability Vital Sign Answer Kody e Recorded In the last 12 months, was t here a time when you were not able to pay the mortgage or rent on time? No 03/05/2024 In the past 12 months, how m any times have you moved where you were living? 0 03/05/2024 At any time in the past 12 m [facility], were you homeless or living in a care home (including now)? No 03/05/2024 Comments Unknown Sex and Gender Information Value [...] DERM [address] [place] [phone] Katlin Triplett MD [address] [place] [address] documented as of this encounter Visit Diagnoses Not on filedocumented in this encounter Additional Health Concerns Assessment Noted Time PHQ-9 Depression Total Score: 1 02/06/20 24 10:00 AM EDT documented as of this encounter Care Teams Rn Pediatric Relationship Specialty Start Date End Date vKng Linton MD [address] [place] [address] PCP - General Internal Medicine 11/27/22 Kvng Linton MD 112 [facility] 110 [place] [address] PCP - Rashid GALVEZ 07/22/23SaturdayElvi LPN 112 [facility] 110 [place] [address] Licensed Practical Nurse Family Medicine 02/26/24 08/28/24 Heydi Parker, FAUSTO [address] [place] [address] Licensed Practical Nurse Family Medicine 08/28/24 10/06/24 Reina Palma LPN 112 [facility] 110 [place] [address] 10/06/24 documented as of this encounter
--- OUTSIDE RECORDS SUMMARY | 2025-01-27 13:02 | XMS_ITS | Encounter Summary ---
Author Organization [facility] Address [address] [place] [address] Care Team Providers Care Research Tech Name Role Phone Kvng Linton MD Primary Care Provider Kvng Linton MD Unavailable [phone] Saturday, Elvi COMPATIBILITY TEST ENGINEER Unavailable [phone] Heydi Parker RN Unavailable Reina Palma COMPATIBILITY TEST ENGINEER Unavailable Encounter Details Date Type Department Care Team (Late st Contact Info) Description 12/19/2023 Abstract [facility] 112 [facility] 110 [place] [phone] Kvng Linton MD 112 [facility] 110 [place] [address] Social History Tobacco Use Types Packs/Day Years Used Date Smoking Tobacco: Former Cigarettes 0.5 27 0 07/30/1965 - 07/22/1992 Smokeless Tobacco: Never Alcohol Use Standard Drinks/Week Comments Never 0 (1 standard drink = 0.6 oz pure alcohol) caffeine intake: more than 4 cups per day. Social Connection and Isolation Panel [NHANES] A nswer Date Recorded In a typical week, how many times do you talk on the phone with family, friends, or neighbors? Patient declined 10/30/2023 How often do you get togethe r with friends or relatives? Patient declined 10/30/2023 How often do you attend uatsdin or mormon serv ices? Patient declined 10/30/2023 Do you belong to any clubs o r organizations such as uatsdin groups, unions, fraternal or athletic groups, or school groups? Patient declined 10/30/2023 How often do you attend meet ings of the clubs or organizations you belong to? Patient declined 10/30/2023 Are you , , di vorced, , never , or living with a partner? Patient declined 10/30/2023 AUDIT-C Answer Date Recorded Q1: How often do you have a drink containing alcohol? Never 10/30/2023 Q2: How many drinks containi ng alcohol do you have on a typical day when you are drinking? Patient does not drink Q3: How often do you have si x or more drinks on one occasion? Never 10/30/2023 Overall Financial Resource Strain (CARDIA) Answe r Date Recorded How hard is it for you to pa y for the very basics like food, housing, medical care, and heating? Not hard at all 10/30/2023 [facility] - Occupational Stress Questionnaire Answer Date Recorded Do you feel stress - tense, restless, nervous, or anxious, or unable to sleep at night because your mind is troubled all the time - these days? Only a little 10/30/2023 Exercise Vital Sign Answer Date Recorde d [...] the money to buy more. Never true 10/30/19 24 Within the past 12 months, t he food you bought just didn't last and you didn't have money to get more. Never true 10/30/2023 PRAPARE - Transportation Answer Date Re corded In the past 12 months, has l ack of transportation kept you from medical appointments or from getting medications? Yes 10/20 In the past 12 months, has l ack of transportation kept you from meetings, work, or from getting things needed for daily living? Yes 10/30/2023 Housing Stability Vital Sign Answer Kody [...] place to sleep or slept in a long-term (including now)? No 10/30/2023 Comments Unknown Sex and Gender Information Value Date Recorded Sex Assigned at Not on file Legal Sex Female 7:12 PM EDT Gender Identity Not on file Sexual Orientation Not on file documented as of this encounter Plan of Treatment Upcoming Encounters Date Type Department Care Team (Late st Contact Info) Description 03/02/2025 3:15 PM EDT Office Visit [facility] [address] [place] [address] Katlin Triplett MD [address] [place], [place] [id number] documented as of this encounter Visit Diagnoses Not on filedocumented in this encounter Care Teams Research Tech Relationship Specialty Start Date End Date Kvng Linton MD [address] [place] [address] PCP - General Internal Medicine 11/27/22 Kvng Linton MD [address] [place] [address] PCP - Rashid GALVEZ 07/22/23Saturday, MELISSA Boles [address] [place] [address] Licensed Practical Nurse Family Medicine 02/26/24 08/28/24 Heydi Parker, FAUSTO [address] [facility] [address] Licensed Practical Nurse Family Medicine 08/28/24 10/06/24 Reina Palma LPN [address] [place] [address] 10/06/24 documented as of this encounter
--- OUTSIDE RECORDS SUMMARY | 2025-01-27 13:02 | XMS_ITS | Encounter Summary ---
Author Organization [facility] Address [address] [place] [address] Care Team Providers Care Supply Controller Name Role Phone Kvng Linton MD Primary Care Provider Kvng Linton MD Unavailable [phone] Saturday, Elvi RAILCAR FOREMAN Unavailable [phone] Heydi Parker RN Unavailable [phone] Reina Palma RAILCAR FOREMAN Unavailable Encounter Details Date Type Department Care Team (Late st Contact Info) Description 08/26/2024 Abstract [facility] 112 [facility] 110 [place] [phone] Kvng Linton MD 112 [facility] 110 [place] [address] Social History Tobacco Use Types [...] and Family Not on file 03/05/2024 Attends [employer] Not on file 03/05 Active Member [...] Recorded Patient Health Questionnaire-2 Score 0 02/06/2024 [facility] - Occupational Stress [...] place to sleep or slept in a snf (including now)? No 10/30/2023 Housing Stability Vital Sign Answer Kody e Recorded In the last 12 months, was t here a time when you were not able to pay the mortgage or rent on time? No 03/05/2024 In the past 12 months, how m any times have you moved where you were living? 0 03/05/2024 At any time in the past 12 m [facility], were you homeless or living in a snf (including now)? No 03/05/2024 Comments Unknown Sex [...] DERM [address] [place] [phone] Katlin Triplett MD [address] [place] [address] documented as of this encounter Visit Diagnoses Not on filedocumented in this encounter Additional Health Concerns Assessment Noted Time PHQ-9 Depression Total Score: 1 02/06/20 24 10:00 AM EDT documented as of this encounter Care Teams Supply Controller Relationship Specialty Start Date End Date Kvng Linton MD [address] [place] [address] PCP - General Internal Medicine 11/27/22 Kvng Linton MD 112 [facility] 110 [place] [address] PCP - Rashid GALVEZ 07/22/23SaturdayElvi LPN 112 [facility] 110 [place] [address] Licensed Practical Nurse Family Medicine 02/26/24 08/28/24 Heydi Parker, FAUSTO [address] [place] [address] Licensed Practical Nurse Family Medicine 08/28/24 10/06/24 Reina Palma LPN 112 [facility] 110 [place] [address] 10/06/24 documented as of this encounter
--- OUTSIDE RECORDS SUMMARY | 2025-01-27 13:02 | XMS_ITS | Encounter Summary ---
Author Organization [facility] Address [address] [place] [address] Care Team Providers Care Health Safety Specialist Name Role Phone Kvng Linton MD Primary Care Provider Kvng Linton MD Unavailable [phone] Saturday, Elvi PROPERTY CLAIM REP Unavailable [phone] Heydi Parker RN Unavailable Reina Palma PROPERTY CLAIM REP Unavailable Encounter Details Date Type Department Care Team (Late st Contact Info) Description 08/26/2023 Abstract [facility] [address] [facility] 110 [place] [phone] Kvng Linton MD 112 [facility] 110 [place] [address] Social History Tobacco Use Types [...] DERM [address] [place] [address] Katlin Triplett MD [address] [place] [address] documented as of this encounter Visit Diagnoses Not on filedocumented in this encounter Care Teams Health Safety Specialist Relationship Specialty Start Date End Date Kvng Linton MD [address] [place] [address] PCP - General Internal Medicine 11/27/22 Kvng Linton MD [address] [place] [address] PCP - Rashid GALVEZ 07/22/23Saturday, MELISSA Boles [address] [place] [address] Licensed Practical Nurse Family Medicine 02/26/24 08/28/24 Heydi Parker, FAUSTO [address] [place] [address] Licensed Practical Nurse Family Medicine 08/28/24 10/06/24 Reina Palma LPN [address] [place] [address] 10/06/24 documented as of this encounter
--- OUTSIDE RECORDS SUMMARY | 2025-01-27 13:02 | XMS_ITS | Encounter Summary ---
Author Organization [facility] Address [address] [place] [address] Care Team Providers Care Jukebox Routeman Name Role Phone Kvng Linton MD Primary Care Provider [phone] Kvng Linton MD Unavailable Saturday, Elvi CNP Unavailable [phone] Heydi Parker RN Unavailable [phone] Reina Palma CNP Unavailable Encounter Details Date Type Department Care Team (Late st Contact Info) Description 03/02/2024 Abstract [facility] 112 [facility] 110 [place] [address] Kvng Linton MD 112 [facility] 110 [place] [address] Social History Tobacco Use Types [...] and Family Not on file 03/05/2024 Attends [employer] Not on file 03/05 Active Member [...] Recorded Patient Health Questionnaire-2 Score 0 02/06/2024 [facility] - [...] place to sleep or slept in a senior care (including now)? No 10/30/2023 Housing Stability Vital Sign Answer Kody e Recorded In the last 12 months, was t here a time when you were not able to pay the mortgage or rent on time? No 03/05/2024 In the past 12 months, how m any times have you moved where you were living? 0 03/05/2024 At any time in the past 12 m [facility], were you homeless or living in a senior care (including now)? No 03/05/2024 Comments Unknown Sex and Gender Information Value Date Recorded Sex Assigned at Not on file Legal Sex Female 7:12 PM EDT Gender Identity Not on file Sexual Orientation Not on file documented as of this encounter Functional Status * Audit-C Score Answer Date of Assessment Author 0 03/05/2024 8:53 AM EDT Mercedez Reno LPN * Question Answer Date of Assessment Author Q1: How often do you have a drink containing alcohol? Never 03/05/2024 8:53 AM EDT Elvi Reno LP N Q2: How many drinks containing alcohol do you have on a typical day when you are drinking? Patient does not drink 03/05/2024 8:53 AM EDT Elvi Reno LPN Q3: How often do you have six or more drinks on one occasion? Never 03/05/2024 8:53 AM EDT Elvi Reno LP N documented as of this encounter Plan of Treatment Upcoming Encounters Date Type Department Care Team (Late st Contact Info) Description 03/02/2025 3:15 PM EDT Office Visit [facility] [address] [place] [address] Katlin Triplett MD [address] [place] [address] documented as of this encounter Visit Diagnoses Not on filedocumented in this encounter Additional Health Concerns Assessment Noted Time PHQ-9 Depression Total Score: 1 02/06/20 24 10:00 AM EDT documented as of this encounter Care Teams Jukebox Routeman Relationship Specialty Start Date End Date Kvng Linton MD [address] [place] [address] PCP - General Internal Medicine 11/27/22 Kvng Linton MD [address] [place] [address] PCP - Rashid GALVEZ 07/22/23Saturday, MELISSA Boles [address] [place] [address] Licensed Practical Nurse Family Medicine 02/26/24 08/28/24 Heydi Parker, RN [address] [place] [address] Licensed Practical Nurse Family Medicine 08/28/24 10/06/24 Reina Palma LPN [address] [place] [address] 10/06/24 documented as of this encounter
--- OUTSIDE RECORDS SUMMARY | 2025-01-27 13:02 | XMS_ITS | Encounter Summary ---
Author Organization [facility] Address [address] [place] [address] Care Team Providers Care Hide Worker Name Role Phone Kvng Linton MD Primary Care Provider Kvng Linton MD Unavailable [phone] Saturday, Elvi DOUBLE END SEWER Unavailable [phone] Heydi Parker RN Unavailable Reina Palma DOUBLE END SEWER Unavailable Encounter Details Date Type Department Care Team (Late st Contact Info) Description 12/19/2023 Abstract [facility] 112 [facility] 110 [place] [phone] Kvng Linton MD 112 [facility] 110 [place] [address] Social History Tobacco Use Types [...] declined 10/30/2023 How often do you attend catholic or latter day serv ices? Patient declined 10/30/2023 Do you belong to any clubs o r organizations such as catholic groups, unions, fraternal or athletic groups, or [...] and heating? Not hard at all 10/30/2023 [facility] - Occupational Stress Questionnaire Answer Date [...] place to sleep or slept in a intermediate (including now)? No 10/30/2023 Comments Unknown Sex [...] DERM [address] [place] [address] Katlin Triplett MD [address] [place], [place] [id number] documented as of this encounter Visit Diagnoses Not on filedocumented in this encounter Care Teams Hide Worker Relationship Specialty Start Date End Date Kvng Linton MD [address] [place] [address] PCP - General Internal Medicine 11/27/22 Kvng Linton MD [address] [place] [address] PCP - Rashid GALVEZ 07/22/23Saturday, MELISSA Boles [address] [place] [address] Licensed Practical Nurse Family Medicine 02/26/24 08/28/24 Heydi Parker, FAUSTO [address] [facility] [place] [address] Licensed Practical Nurse Family Medicine 08/28/24 10/06/24 Reina Palma LPN 112 [place] [address] 10/06/24 documented as of this encounter
--- OUTSIDE RECORDS SUMMARY | 2025-01-27 13:02 | XMS_ITS | Encounter Summary ---
Author Organization [facility] Address [address] [place] [address] Care Team Providers Care Em Physician Name Role Phone Kvng Linton MD Primary Care Provider [phone] Kvng Linton MD Unavailable [phone] Saturday, Elvi HOTEL GENERAL MANAGER Unavailable [phone] Heydi Parker RN Unavailable [phone] Reina Palma HOTEL GENERAL MANAGER Unavailable Encounter Details Date Type Department Care Team (Late st Contact Info) Description 11/28/2023 Abstract [facility] 112 [facility] 110 [place] [phone] Kvng Linton MD 112 [facility] 110 [place] [address] Social History Tobacco Use Types [...] declined 10/30/2023 How often do you attend rastafarian or scientology serv ices? Patient declined 10/30/2023 Do you belong to any clubs o r organizations such as rastafarian groups, unions, fraternal or athletic groups, or [...] and heating? Not hard at all 10/30/2023 [facility]at ional [facility] - Occupational Stress Questionnaire Answer Date [...] place to sleep or slept in a custodial (including now)? No 10/30/2023 Comments Unknown Sex [...] DERM [address] [place] [address] Katlin Triplett MD [address] [place], [place] [address] documented as of this encounter Visit Diagnoses Not on filedocumented in this encounter Care Teams Em Physician Relationship Specialty Start Date End Date Kvng Linton MD [address] [place] [address] PCP - General Internal Medicine 11/27/22 Kvng Linton MD [address] [place] [address] PCP - Rashid GALVEZ 07/22/23Saturday, MELISSA Boles [address] [place] [address] Licensed Practical Nurse Family Medicine 02/26/24 08/28/24 Heydi Parker, FAUSTO [address] [facility] [address] Licensed Practical Nurse Family Medicine 08/28/24 10/06/24 Reina Palma LPN [address] [place] [address] 10/06/24 documented as of this encounter
--- OUTSIDE RECORDS SUMMARY | 2025-01-27 13:02 | XMS_ITS | Encounter Summary ---
Author Organization [facility] Address [address] [place] [address] Care Team Providers Care Motor Rebuilder Name Role Phone Kvng Linton MD Primary Care Provider Kvng Linton MD Unavailable [phone] Saturday, Elvi GROUP TEACHER Unavailable [phone] Heydi Parker RN Unavailable Reina Palma GROUP TEACHER Unavailable Encounter Details Date Type Department Care Team (Late st Contact Info) Description 02/17/2024 Abstract [facility] 112 [facility] 110 [place] [address] Kvng Linton MD 112 [facility] 110 [place] [address] Social History Tobacco Use Types [...] declined 10/30/2023 How often do you attend christian or buddhism serv ices? Patient declined 10/30/2023 Do you belong to any clubs o r organizations such as christian groups, unions, fraternal or athletic groups, or [...] and heating? Not hard at all 10/30/2023 PHQ-2 Answer Date Recorded Patient Health Questionnaire-2 Score 0 02/06/2024 [facility] - Occupational Stress Questionnaire Answer Date [...] 3:15 PM EDT Office Visit [facility] [address] [place] [address] Katlin Triplett MD [address] [place] [address] documented as of this encounter Visit Diagnoses Not on filedocumented in this encounter Additional Health Concerns Assessment Noted Time PHQ-9 Depression Total Score: 1 02/06/20 24 10:00 AM EDT documented as of this encounter Care Teams Motor Rebuilder Relationship Specialty Start Date End Date Kvng Linton MD [address] [place] [address] PCP - General Internal Medicine 11/27/22 Kvng Linton MD [address] [place] [address] PCP - Rashid GALVEZ 07/22/23Saturday, MELISSA Boles [address] [place] [address] Licensed Practical Nurse Family Medicine 02/26/24 08/28/24 Heydi Parker, RN [address] [place] [address] Licensed Practical Nurse Family Medicine 08/28/24 10/06/24 Reina Palma LPN 112 [facility] 110 [place] [address] 10/06/24 documented as of this encounter
--- OUTSIDE RECORDS SUMMARY | 2025-01-27 13:02 | XMS_ITS | Encounter Summary ---
Author Organization [facility] Address [address] [place] [address] Care Team Providers Care Drop Man Name Role Phone Kvng Linton MD Primary Care Provider Kvng Linton MD Unavailable [phone] Saturday, Elvi GENERAL LABORER Unavailable [phone] Heydi Parker RN Unavailable [phone] Reina Palma GENERAL LABORER Unavailable Encounter Details Date Type Department Care Team (Late st Contact Info) Description 02/26/2024 Orders Only [facility] [address] [place] [address] Unallocated, Noms Provider, [address] [place], [place] [address] Social History Tobacco Use Types Packs/Day Years [...] declined 10/30/2023 How often do you attend taoism or congregation serv ices? Patient declined 10/30/2023 Do you belong to any clubs o r organizations such as taoism groups, unions, fraternal or athletic groups, or [...] Recorded Patient Health Questionnaire-2 Score 0 02/06/2024 [facility] - Occupational Stress Questionnaire Answer Date [...] a care home (including now)? No 10/30/2023 Comments Unknown Sex [...] CRUZ [address] [place] [address] Katlin Triplett MD [address] [place] [address] documented as of this encounter Procedures Procedure Name Priority Date/Time Associated Diagnosis Comments DEXA EXAM Routine 02/26/2024 1:37 PM EDT DEXA EXAM Routine 02/26/2024 1:37 PM EDT documented in this encounter Results * DEXA EXAM (02/26/2024 1:37 PM EDT) Anatomical Region Laterality Modality Radiographic Jaquelin ging us N[facility] Provider Unallocated MD IMG XR PROCEDURES F inal Result * DEXA EXAM (02/26/2024 1:37 PM EDT) Anatomical Region Laterality Modality Radiographic Jaquelin ging us [facility] Provider Unallocated MD IMG XR PROCEDURES F inal Result documented in this encounter Visit Diagnoses Not on filedocumented in this encounter Additional Health Concerns Assessment Noted Time PHQ-9 Depression Total Score: 1 02/06/20 24 10:00 AM EDT documented as of this encounter Care Teams Drop Man Relationship Specialty Start Date End Date Kvng Linton MD [address] [place] [address] PCP - General Internal Medicine 11/27/22 Kvng Linton MD [address] [place] [address] PCP - Rashid GALVEZ 07/22/23Saturday, MELISSA Boles [address] [place] [address] Licensed Practical Nurse Family Medicine 02/26/24 08/28/24 Heydi Parker, RN [address] [facility] [address] Licensed Practical Nurse Family Medicine 08/28/24 10/06/24 Reina Palma LPN [address] [facility] 110 [place] [address] 10/06/24 documented as of this encounter
--- OUTSIDE RECORDS SUMMARY | 2025-01-27 13:02 | XMS_ITS | Encounter Summary ---
Author Organization [facility] Address [address] [place] [address] Care Team Providers Care House Parent Name Role Phone Kvng Linton MD Primary Care Provider Kvng Linton MD Unavailable [phone] Saturday, Elvi MANAGER PERSONNEL SELECTION Unavailable [phone] Heydi Parker RN Unavailable Reina Palma MANAGER PERSONNEL SELECTION Unavailable Encounter Details Date Type Department Care Team (Late st Contact Info) Description 03/16/2024 Abstract [facility] 112 [facility] 110 [place] [address] Kvng Linton MD 112 [facility] 110 [place] [address] Social History Tobacco Use Types [...] and Family Not on file 03/05/2024 Attends Denominational Services Not on file 03/05 Active Member [...] Recorded Patient Health Questionnaire-2 Score 0 02/06/2024 [facility] Occupat ional Health - Occupational [...] place to sleep or slept in a usp (including now)? No 10/30/2023 Housing Stability Vital Sign Answer Kody e Recorded In the last 12 months, was t here a time when you were not able to pay the mortgage or rent on time? No 03/05/2024 In the past 12 months, how m any times have you moved where you were living? 0 03/05/2024 At any time in the past 12 m [facility], were you homeless or living in a usp (including now)? No 03/05/2024 Comments Unknown Sex [...] DERM [address] [place] [address] Katlin Triplett MD [address] [place] [address] documented as of this encounter Visit Diagnoses Not on filedocumented in this encounter Additional Health Concerns Assessment Noted Time PHQ-9 Depression Total Score: 1 02/06/20 24 10:00 AM EDT documented as of this encounter Care Teams House Parent Relationship Specialty Start Date End Date Kvng Linton MD [address] [place] [address] PCP - General Internal Medicine 11/27/22 Kvng Linton MD 112 [facility] 110 [place] [address] PCP - Rashid GALVEZ 07/22/23SaturdayElvi LPN 112 [facility] 110 [place] [address] Licensed Practical Nurse Family Medicine 02/26/24 08/28/24 Heydi Parker, FAUSTO [address] [place] [address] Licensed Practical Nurse Family Medicine 08/28/24 10/06/24 Reina Palma LPN 112 [facility] 110 [place] [address] 10/06/24 documented as of this encounter
--- OUTSIDE RECORDS SUMMARY | 2025-01-27 13:02 | XMS_ITS | Encounter Summary ---
Author Organization [facility] Address [address] [place] [address] Care Team Providers Care Jewel Setter Name Role Phone Kvng Linton MD Primary Care Provider [phone] Kvng Linton MD Unavailable [phone] Saturday, Elvi DEMAND PLANNING MANAGER Unavailable [phone] Heydi Parker RN Unavailable [phone] Reina Palma DEMAND PLANNING MANAGER Unavailable Encounter Details Date Type Department Care Team (Late st Contact Info) Description 02/12/2024 Abstract [facility] [address] [facility] 110 [place] [address] Kvng Linton MD 112 [facility] 110 [place] [address] Social History Tobacco Use Types [...] declined 10/30/2023 How often do you attend yazidism or confucianist serv ices? Patient declined 10/30/2023 Do you belong to any clubs o r organizations such as yazidism groups, unions, fraternal or athletic groups, or [...] Recorded Patient Health Questionnaire-2 Score 0 02/06/2024 [facility] of Occupat ional [facility] - Occupational Stress Questionnaire Answer Date Recorded [...] place to sleep or slept in a penitentiary (including now)? No 10/30/2023 Comments Unknown Sex [...] CRUZ [address] [place] [address] Katlin Triplett MD [address] [place] [address] documented as of this encounter Visit Diagnoses Not on filedocumented in this encounter Additional Health Concerns Assessment Noted Time PHQ-9 Depression Total Score: 1 02/06/20 24 10:00 AM EDT documented as of this encounter Care Teams Jewel Setter Relationship Specialty Start Date End Date Kvng Linton MD [address] [place] [address] PCP - General Internal Medicine 11/27/22 Kvng Linton MD [address] [place] [address] PCP - Rashid GALVEZ 07/22/23Saturday, MELISSA Boles [address] [place] [address] Licensed Practical Nurse Family Medicine 02/26/24 08/28/24 Heydi Parker, RN [address] [place] [address] Licensed Practical Nurse Family Medicine 08/28/24 10/06/24 Reina Palma LPN 112 [facility] 110 [place] [address] 10/06/24 documented as of this encounter
--- OUTSIDE RECORDS SUMMARY | 2025-01-27 13:02 | XMS_ITS | Encounter Summary ---
Author Organization [facility] Address [address] [place] [address] Care Team Providers Care County Ordinary Name Role Phone Kvng Linton MD Primary Care Provider [phone] Kvng Linton MD Unavailable [phone] Saturday, Elvi COMMERCIAL TRAILER TRUCK DRIVER Unavailable [phone] Heydi Parker RN Unavailable [phone] Reina Palma COMMERCIAL TRAILER TRUCK DRIVER Unavailable Encounter Details Date Type Department Care Team (Late st Contact Info) Description 02/26/2024 Clinisync Result Encounter [facility] External Department Unsolicited Nicky Riddle, PA [address] [facility] 110 [place] [address] Social History Tobacco Use Types Packs/Day Years [...] declined 10/30/2023 How often do you attend anglican or buddhism serv ices? Patient declined 10/30/2023 Do you belong to any clubs o r organizations such as anglican groups, unions, fraternal or athletic groups, or [...] Recorded Patient Health Questionnaire-2 Score 0 02/06/2024 [facility] of Occupat ional Health - Occupational Stress [...] to sleep or slept in a senior living (including now)? No 10/30/2023 Comments Unknown Sex [...] CRUZ [address] [place] [address] Katlin Triplett MD [address] [place] [address] documented as of this encounter Procedures Procedure Name Priority Date/Time Associated Diagnosis Comments XR DEXA AXIAL SKELETON 02/26/2024 11:36 AM EDT documented in this encounter Results * XR DEXA AXIAL SKELETON (02/26/2024 11:36 AM EDT) Anatomical Region Laterality Modality Other 02/26/2024 11:3 6 AM EDT Narrative 02/26/2024 11:39 AM EDT The [address] [address] XRay Report Signed Patient: BERENICE DISLA MR#: [id number] : 1945 Acct:[id number] Age/Sex: 78 / F ADM Date: 02/26/24 Loc: RAD Attending Dr: NICKY RIDDLE Ordering Physician: NICKY RIDDLE Date of Service: 02/26/24 Procedure(s): XR DEXA axial skeleton Accession Number(s): [id number] cc: KVNG LINTON ; NICKY RIDDLE [place] [id number] Patient Name: BERENICE DISLA MRN: [id number] date: 1945 Sex: F Assigned Patient Location: [facility] Current Patient Location: [facility] Accession/Order Number: [id number] Exam Date: 02/26/2024 11:05 Report Date: 02/26/2024 11:36 At the request of: NICKY RIDDLE Procedure: XR DEXA axial skeleton EXAMINATION: XR DEXA axial skeleton HISTORY: Osteopenia M85.89 COMPARISON: DEXA bone densitometry 11/10/2020 TECHNIQUE: Dual-energy X-ray absorptiometry (DXA) was performed. FINDINGS: SPINE ANALYSIS: Average bone mineral density is 1.156 g/cm2. T-score (standard deviation relative to young adult mean): -0.4 . -4.7% change since prior study. HIP ANALYSIS: Lowest bone mineral density is within the left femoral neck, 0.951 g/cm2. T-score (standard deviation relative to young adult mean): -0.6 . -4.3% change since prior study. XR/XR DEXA axial skeleton IMPRESSION: World Health Organization Classification: Osteopenia - Moderate Fracture Risk FRAX: Cannot calculate. Pharmacologic treatment recommendations * No uniform recommendation applies to all patients. Management plans must be individualized. * Consider initiating pharmacologic treatment in postmenopausal women and men >= 50 years of age who have the following: Primary fracture prevention: * T-score <= - 2.5 at the femoral neck, total hip, lumbar spine, 33% radius (some uncertainty with existing data) by DXA. * Low bone mass (osteopenia: T-score between - 1.0 and - 2.5) at the femoral neck or total hip by DXA with a 10-year hip fracture risk >= 3% or a 10-year major osteoporosis-related fracture risk >= 20% (i.e., clinical vertebral, hip, forearm, or proximal humerus) based on the US-adapted FRAXregistered model. Secondary fracture prevention: * Fracture of the hip or vertebra regardless of BMD [4, 5]. * Fracture of proximal humerus, pelvis, or distal forearm in persons with low bone mass (osteopenia: T-score between - 1.0 and - 2.5). The decision to treat should be individualized in persons with a fracture of the proximal humerus, pelvis, or distal forearm who do not have osteopenia or low BMD [12, 13]. Roseanne MS, Britni SL, Lorena KL, Prasanna EM, Erik KG, AJ, Nick ES. The clinician's guide to prevention and treatment of osteoporosis. Osteoporos Int. 2021;3310):3877-1589. doi: 10.1007/l21955-250-08493-x. Epub 2021Nov 16. Erratum in: Osteoporos Int. 2021Feb 15;: PMID: 40489083; PMCID: [id number]. Electronically authenticated by: TARIQ LEVIN Date: 02/26/2024 11:36 Dictated By: Tariq Levin M.D. Signed By: 02/26/24 1139 DD/ 1136 TD/TT: Factory Laborer: Procedure Note Radiology, Radiologist, MD - 02/26/2024 The [place] [id number] XRay Report Signed Patient: BERENICE DISLA EMR#: [id number] : 1945cct:[id number] Age/Sex: 78 / FADM Date: 02/26/24 Loc: RAD Attending Dr: NICKY RIDDLE Ordering Physician: NICKY RIDDLE Date of Service: 02/26/24 Procedure(s): XR DEXA axial skeleton Accession Number(s): [id number] cc: KVNG LINTON ; NICKY RIDDLE The [address] [address] Patient Name: BERENICE DISLA MRN: [id number] date: 1945 Sex: F Assigned Patient Location: RAD Current Patient Location: RAD Accession/Order Number: [id number] Exam Date: 02/26/2024 11:05 Report Date: 02/26/2024 11:36 At the request of: NICKY RIDDLE Procedure: XR DEXA axial skeleton EXAMINATION: XR DEXA axial skeleton HISTORY: Osteopenia M85.89 COMPARISON: DEXA bone densitometry 11/10/2020 TECHNIQUE: Dual-energy X-ray absorptiometry (DXA) was performed. FINDINGS: SPINE ANALYSIS: Average bone mineral density is 1.156 g/cm2. T-score (standard deviation relative to young adult mean): -0.4 . -4.7% change since prior study. HIP ANALYSIS: Lowest bone mineral density is within the left femoral neck, 0.951 g/cm2. T-score (standard deviation relative to young adult mean): -0.6 . -4.3% change since prior study. XR/XR DEXA axial skeleton IMPRESSION: World Health Organization Classification: Osteopenia - Moderate FractureRisk FRAX: Cannot calculate. Pharmacologic treatment recommendations * No uniform recommendation applies to all patients. Management plans mustbe individualized. * Consider initiating pharmacologic treatment in postmenopausal women andmen >= 50 years of age who have the following: Primary fracture prevention: * T-score <= - 2.5 at the femoral neck, total hip, lumbar spine, 33%radius (some uncertainty with existing data) by DXA. * Low bone mass (osteopenia: T-score between - 1.0 and - 2.5) at thefemoral neck or total hip by DXA with a 10-year hip fracture risk >= 3% or [id number] major osteoporosis-related fracture risk >= 20% (i.e., clinical vertebral, hip, forearm, or proximal humerus) based on the US-adapted FRAXregisteredmodel. Secondary fracture prevention: * Fracture of the hip or vertebra regardless of BMD [4, 5]. * Fracture of proximal humerus, pelvis, or distal forearm in persons withlow bone mass (osteopenia: T-score between - 1.0 and - 2.5). The decision totreat should be individualized in persons with a fracture of the proximalhumerus, pelvis, or distal forearm who do not have osteopenia or low BMD [12, 13]. Roseanne MS, Britni SL, Lorena KL, Prasanna EM, Erik KG, AJ,Nick ES. The clinician's guide to prevention and treatment of osteoporosis.Osteoporos Int. 2021;33(10):5296-2237. doi: 10.1007/v37756-188-85143-l. Ep. Erratum in: Osteoporos Int. 2021Feb 15;: PMID: 23993467; PMCID: [id number]. Electronically authenticated by: TARIQ LEVIN Date: 02/26/2024 11:36 Dictated By: Tariq Levin M.D. Signed By:02/26/24 1139 DD/ 1136 TD/TT: Factory Laborer: us Nicky [facility] Final Result documented in this encounter Visit Diagnoses Not on filedocumented in this encounter Additional Health Concerns Assessment Noted Time PHQ-9 Depression Total Score: 1 02/06/20 24 10:00 AM EDT documented as of this encounter Care Teams County Ordinary Relationship Specialty Start Date End Date Kvng Linton MD [address] [place] [address] PCP - General Internal Medicine 11/27/22 Kvng Linton MD [address] [place] [address] PCP - Rashid GALVEZ 07/22/23SaturdayElvi LPN [address] [place] [address] Licensed Practical Nurse Family Medicine 02/26/24 08/28/24 Heydi Parker, FAUSTO [address] [facility] [address] Licensed Practical Nurse Family Medicine 08/28/24 10/06/24 Reina Palma LPN [address] [place] [address] 10/06/24 documented as of this encounter
--- OUTSIDE RECORDS SUMMARY | 2025-01-27 13:02 | XMS_ITS | Encounter Summary ---
Author Organization [facility] Address [address] [place] [address] Care Team Providers Care Authorization Rep Name Role Phone Kvng Linton MD Primary Care Provider Kvng Linton MD Unavailable [phone] Saturday, Elvi FRETTED INSTRUMENTS INSPECTOR Unavailable [phone] Heydi Parker RN Unavailable [phone] Reina Palma FRETTED INSTRUMENTS INSPECTOR Unavailable Encounter Details Date Type Department Care Team (Late st Contact Info) Description 03/02/2024 Abstract [facility] [address] [facility] [address] [place] [id number] Kvng Linton MD 112 [facility] 110 [place] [address] Social History Tobacco Use Types [...] and Family Not on file 03/05/2024 Attends [employer] Services Not on file 03/05 Active Member [...] Recorded Patient Health Questionnaire-2 Score 0 02/06/2024 [facility] - [...] place to sleep or slept in a skilled nursing (including now)? No 10/30/2023 Housing Stability Vital Sign Answer Kody e Recorded In the last 12 months, was t here a time when you were not able to pay the mortgage or rent on time? No 03/05/2024 In the past 12 months, how m any times have you moved where you were living? 0 03/05/2024 At any time in the past 12 m [facility], were you homeless or living in a skilled nursing (including now)? No 03/05/2024 Comments Unknown Sex [...] 03/02/2025 3:15 PM EDT Office Visit [facility] [address] [place] [address] Katlin Triplett MD [address] [place] [address] documented as of this encounter Visit Diagnoses Not on filedocumented in this encounter Additional Health Concerns Assessment Noted Time PHQ-9 Depression Total Score: 1 02/06/20 24 10:00 AM EDT documented as of this encounter Care Teams Authorization Rep Relationship Specialty Start Date End Date Kvng Linton MD [address] [place] [address] PCP - General Internal Medicine 11/27/22 Kvng Linton MD [address] [place] [address] PCP - Rashid GALVEZ 07/22/23Saturday, MELISSA Boles [address] [place] [address] Licensed Practical Nurse Family Medicine 02/26/24 08/28/24 Heydi Parker, RN [address] [place] [address] Licensed Practical Nurse Family Medicine 08/28/24 10/06/24 Reina Palma LPN [address] [place] [address] 10/06/24 documented as of this encounter
--- OUTSIDE RECORDS SUMMARY | 2025-01-27 13:02 | XMS_ITS ---
Author Organization [facility] Address [address] [place] [address] Care Team Providers Care Hybrid Technologist Name Role Phone Kvng Linton MD Primary Care Provider [phone] Kvng Linton MD Unavailable [phone] Reina Palma LPN Unavailable Chronic Care Management (CCM) Status:Enrolled (Active) Start date:02/26/2024 Enrollment date:03/05/2024 Enrollment reason:Identified as high-risk Overview Please assess for Care Management needs. 03/05/24, 9:11 AM - Elvisaturday, MELISSA- Patient gives verbal consent to be enrolled in CCM Program and understands there could be a bill for this service if her insurance should change. Case Team Name Relationship Phone Reina Palma LPN(Responsible Staff) [phone] Continued Care and Services Coordination
--- OUTSIDE RECORDS SUMMARY | 2025-01-27 13:03 | XMS_ITS | Patient Health Record ---
Author Organization [facility] Address [address] [place] [address] Care Team Providers Care Salesforce Trainer Name Role Phone Araceli Woo Primary Care Provider Johanna Wheat Unavailable Helga Perez Unavailable [phone] Kathy Pollack Unavailable [phone] Reason For Referral No Information Medications Medication SIG (Take, Route, Fr equency, Duration) Notes Start Date End Date Status Ibuprofen 800 MG 1 tablet with food o r milk as needed Orally Three times a day 05/13/2024 Active Encounters Encounter Location Date Provider Diagnosis [facility] [address] [place] [address] 02/05/2024 Johanna Palacios [facility] [address] [place] [address] 11/23/2024 Araceli Woo [facility] [address] [place] [address] 02/03/2024 Johanna Palacios Encounter for dental examination and cleaning with abnormal findings Z01.21 ; Other dental procedure status Z98.818 ; Dental caries on pit and fissure surface penetrating into dentin K02.52 ; Necrosis of pulp K04.1 ; Chronic periodontitis, generalized, 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 ; Cracked tooth K03.81 and Partial loss of teeth, unspecified cause, class I K08.401 [facility] [address] [place] [address] 05/13/2024 Johanna Palacios Cracked tooth K03.81 [facility] [address] [place] [address] 05/20/2024 Araceli Cruzmatildemaisha Cracked tooth K03.81 [facility] [address] [place] [address] 02/05/2024 Kathy Ranjeet Dental caries on pit and fissure surface penetrating into dentin K02.52 ; Encounter for dental examination and cleaning with abnormal findings Z01.21 and Acute gingivitis, plaque induced K05.00 Assessments Encounter Date Diagnosis (ICD Code) Assessment Notes Treatment Notes Treatment Clinical Notes Section Notes 02/03/2024 Encounter for dental examination and cleaning with abnormal findings (ICD-10 - Z01.21) 02/05/2024 Dental caries on pit and fissure surface penetrating into dentin (ICD-10 - K02.52) 05/13/2024 Cracked tooth (ICD-10 - K03.81) 05/20/2024 Cracked tooth (ICD-10 - K03.81) 02/05/2024 Encounter for dental examination and cleaning with abnormal findings (ICD-10 - Z01.21) 02/03/2024 Other dental procedure status (ICD-10 - Z98.818) 02/05/2024 Acute gingivitis, plaque induced (ICD-10 - K05.00) 02/03/2024 Dental caries on pit and fissure surface penetrating into dentin (ICD-10 - K02.52) 02/03/2024 Necrosis of pulp (ICD-10 - K04.1) 02/03/2024 Chronic periodontitis, generalized, slight (ICD-10 - K05.321) 02/03/2024 Cracked tooth (ICD-10 - K03.81) 02/03/2024 Partial loss of teeth, unspecified cause, class I (ICD-10 - K08.401) Plan Of Treatment Next Appt Details Provider Name:Araceli ferrera, 04/02/2025 01:00:00 PM, [address] [place], [address], Insurance Providers Payer Name Payer Address Payer Phone Subscriber Number Group Number Insured Name Patient Relationship to Insured Coverage Start Date Coverage End Date [employer] [address] [address] [place] [address] [id number] JESSICA SILVA Self - patient is the insured 4
--- OUTSIDE RECORDS SUMMARY | 2025-01-27 13:03 | XMS_ITS | Encounter Summary ---
Author Organization [facility] Address [address] [place] [address] Care Team Providers Care Autopsy Pathologist Name Role Phone Kvng Linton MD Primary Care Provider [phone] Kvng Linton MD Unavailable [phone] Reina Palma LPN Unavailable Reason for Visit * Reason Onset Date Comments On-Call 01/09/2025 Encounter Details Date Type Department Care Team (Late st Contact Info) Description 01/09/2025 Telephone [facility] 110 [place] [address] Tsering Conte, TRANSMISSION TESTER 112 [facility] 110 [place] [address] On-Call Social History Tobacco Use Types Packs/Day Years [...] and Family Not on file 03/05/2024 Attends [employer] Not on file 03/05 Active Member [...] Date Recorded Patient Health Questionnaire-2 Score 0 11/11/2024 [facility] - Occupational Stress [...] a senior living (including now)? No 10/30/2023 Housing Stability Vital Sign Answer Kody e Recorded In the last 12 months, was t here a time when you were not able to pay the mortgage or rent on time? No 03/05/2024 In the past 12 months, how m any times have you moved where you were living? 0 03/05/2024 At any time in the past 12 m [facility], were you homeless or living in a senior living (including now)? No 03/05/2024 Comments Unknown Sex and Gender Information Value Date Recorded Sex Assigned at Not on file Legal Sex Female 7:12 PM EDT Gender Identity Not on file Sexual Orientation Not on file documented as of this encounter Miscellaneous Notes * Telephone Encounter - Batsheva Fierro - 01/09/2025 8:37 PM EDT Pt called about a infection in Rt foot. There is an open wound on the bottom of her foot at the base of her toes. Redness extends up to the top of the foot, it is swollen. Pt stated she does not havethat much feeling in foot d/t neuropathy. Pt went to and they are closed. She would like On-callto send in antibiotics for her tonight if possible. Sent to On-call Tsering Conte. documented in this encounter Plan of Treatment Upcoming Encounters Date Type Department Care Team (Late st Contact Info) Description 03/02/2025 3:15 PM EDT Office Visit [facility] [address] [place] [address] Katlin Triplett MD [address] [place] [address] documented as of this encounter Visit Diagnoses Diagnosis Cellulitis of lower extremity, unspecified laterality- Primary documented in this encounter Additional Health Concerns Assessment Noted Time PHQ-9 Depression Total Score: 1 02/06/20 24 10:00 AM EDT documented as of this encounter Care Teams Autopsy Pathologist Relationship Specialty Start Date End Date Kvng Linton MD 112 [facility] 110 [place] [address] PCP - General Internal Medicine 11/27/22 Kvgn Linton MD 112 [facility] [address] [place] [address] PCP - Rashid GALVEZ 07/22/23 Reina Palma LPN 112 [facility] [address] [place] [address] 10/06/24 documented as of this encounter
--- OUTSIDE RECORDS SUMMARY | 2025-01-27 13:03 | XMS_ITS | Clinical Summary ---
Author Organization [facility] Address [address] [place] [address] Care Team Providers Care Welcome Wagon Hostess Name Role Phone Kvng Linton MD Primary Care Provider Kvng Linton MD Unavailable [phone] Reina Palma LPN Unavailable Allergies Active Allergy Reactions Criticality Noted Date Comments Amoxicillin-Pot Clavulanate Nausea Only 023 Sulfa Antibiotics 03/12/2023 Other Reaction(s): itching Medications Multiple Vitamin (Multi-Vitamin) tablet Take 1 tablet by mouth in the morning. Active gabapentin (Neurontin) 600 MG tabletIndication s:Neuralgia TABLET 1/2 TABLET BY MOUTH TWICE A DAY AND TAKE 1 TABLET BY MOUTH EVERY DAY AT BEDTIME 180 tablet 3 4 Active atorvastatin (Lipitor) 10 MG tabletIndication s:Dyslipidemia Take 1 tablet (10 mg) by mouth in the morning. 100 tablet 3 4 Active Additional Information Patient not taking.Reported on 07/30/2024 ascorbic acid (Vitamin C) 250 MG tablet Take 250 mg by mouth in the morning. Active cholecalciferol (Vitamin D-3) 50 MCG (1999 UT) tablet Take 1,000 Units by mouth in the morning. Active ibuprofen 800 MG tablet Take 800 mg by mouth every 6 (six) hours if needed for moderate pain 4 Active aspirin 81 MG EC tablet Take 81 mg by mouth Daily Active rOPINIRole (Requip) 0.5 MG tabletIndication s:Restless Leg Syndrome Take 2 tablets (1 mg) by mouth in the morning and 2 tablets (1 mg) before bedtime. 360 tablet 3 5 Active olmesartan-hydro CHLOROthiazide (BENIcar HCT) 20-12.5 MG tabletIndication s:Essential (primary) hypertension Take 1 tablet by mouth Daily 5 Active traMADol (Ultram) 50 MG tabletIndication s:Primary osteoarthritis, unspecified site Take 1 tablet (50 mg) by mouth every 6 (six) hours if needed for severe pain 40 tablet 1 5 Active meloxicam (Mobic) 15 MG tabletIndication s:Inflammatory and toxic neuropathy (HCC),Neurogenic pain Take 1 tablet (15 mg) by mouth Daily Take with food 90 tablet 3 5 Active cloNIDine (Catapres) 0.1 MG tabletIndication s:Essential (primary) hypertension TAKE 1 TABLET BY MOUTH EVERY 8 HOURS IF NEEDED FOR HIGH BLOOD PRESSURE FOR 170 OR GREATER 30 tablet 5 Active cephalexin (Keflex) 500 MG capsuleIndicatio ns:Cellulitis of lower extremity, unspecified laterality Take 1 capsule (500 mg) by mouth in the morning and 1 capsule (500 mg) in the evening and 1 capsule (500 mg) before bedtime. Do all this for 10 days. 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 Laryngopharyngeal reflux 03/12/2023 Left sided sciatica 03/12/2023 Lumbago with sciatica, left side 03/12/2023 Lumbar degenerative disc disease 03/12/2023 Lumbar paraspinal muscle spasm 03/12/2023 Muscular atrophy 03/12/2023 Neural foraminal stenosis of lumbar spine 2022 Neurogenic pain 03/12/2023 Osteoarthritis of spine with radiculopathy, lumb ar region 03/12/2023 Polyarthritis 03/12/2023 Osteopenia of multiple sites 03/12/2023 Other chronic pain 03/12/2023 Other hammer toe(s) (acquired), right foot 03/12 Pharyngoesophageal dysphagia 03/12/2023 Glenohumeral arthritis 03/12/2023 Post-traumatic osteoarthritis, right shoulder Primary localized osteoarthrosis of ankle and fo ot 03/12/2023 Primary osteoarthritis of right foot 03/12/2023 Primary osteoarthritis, right shoulder Rheumatoid factor positive 03/12/2023 Restless legs syndrome (RLS) 03/12/2023 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 Essential (primary) hypertension 03/09/2023 Piriformis syndrome of right side 10/31/2021 Lumbar neuritis 09/06/2021 Disorder of sacrum 11/30/2020 Lumbar spondylosis 11/30/2020 Dyslipidemia 08/22/2009 Resolved Problems Problem Noted Date Diagnosed Date Resolved Date Actinic cheilitis 03/12/2023 02/06/2024 Charcot's arthropathy 03/12/20232023 Non-pressure chronic ulcer o f other part of right foot with fat layer exposed 03/12/20232023 Primary localized osteoarthrosis 08/22/2009 02/06/2024 Encounters Date Type Department Care Team Description 01/09/2025 Telephone [facility] [address] [place] [address] Tsering Conte NP On-Call 12/30/2024 12:50 PM EDT Office Visit [facility] [address] [place] [address] Gabriela Porter PA Epidermal inclusion cyst (Primary Dx); Localized tenderness 12/30/2024 Bamboo flowsheet [facility] [address] [place] [address] Gabriela Porter PA 12/30/2024 Travel 12/09/2024 Refill [facility] [address] [place] [phone] Tsering Conte NP Essential (primary) hypertension 11/11/2024 9:30 AM EDT Office Visit [facility] [address] [place] [phone] Tsering Conte NP Essential (primary) hypertension (Primary Dx); Rheumatoid arthritis, unspecified (HCC); Infected sebaceous gland 11/11/2024 Bamboo flowsheet [facility] [address] [place] [address] Tsering Conte NP 11/11/2024 Travel 11/09/2024 Telephone [facility] [address] [place] [address] Kvng Linton MD ER Follow-up 11/02/2024 Patient Outreach [facility] [address] [place] [address] Reina Palma LPN from Last 3 Months Immunizations Immunization Administration Dates Next Due Influenza, High Dose Seasona l, Preservative Free 05/03/2021,04/05/2020,07/02/2019 Influenza, High-dose Seasona l, Quadrivalent, Preservative Free 07/05/2022,04/12/2020 Influenza, injectable, MDCK, preservative free, quadrivalent 06/05/2018 Influenza, injectable, quadrivalent 04/23/2016 Influenza, seasonal, intrade rmal, preservative free 04/23/2018 Pneumococcal Conjugate PCV 13 04/12/2020 Pneumococcal Polysaccharide PPSV23 04/05/2020, Tdap 01/21/2012 Family History Medical History Relation Name Comments Heart disease Father Gage Cancer Mother Josefina Relation Name Status Comments Father Gage Mother Josefina Social History Tobacco Use Types Packs/Day Years Used Date Smoking Tobacco: Former Cigarettes 0.5 27 0 07/30/1965 - 07/22/1992 Smokeless Tobacco: Never Tobacco Cessation:Counseling Given: Yes Alcohol Use Standard Drinks/Week Comments Never 0 [...] and Family Not on file 03/05/2024 Attends Religion Services Not on file 03/05 Active Member [...] Recorded Patient Health Questionnaire-2 Score 0 11/11/2024 [facility] - Occupational [...] place to sleep or slept in a nursing home (including now)? No 10/30/2023 Housing Stability [...] any time in the past 12 m [facility], were you homeless or living in a nursing home (including now)? No 03/05/2024 Comments Unknown Sex and Gender Information Value Date Recorded Sex Assigned at Not on file Legal Sex Female 7:12 PM EDT Gender Identity Not on file Sexual Orientation Not on file Last Filed Vital Signs Vital Sign Reading Time Taken Comments Blood Pressure 142/82 11/11/2024 9:29 AM EDT Pulse 64 11/11/2024 9:29 AM EDT Temperature 37.2 C (98.9 F) 01/09/2024 1:23 PM EDT Respiratory Rate 16 11/11/2024 9:29 AM EDT Oxygen Saturation 95% 11/11/2024 9:29 AM EDT Inhaled Oxygen Concentration - - Weight 67.4 kg (148 lb 9.6 oz) 11/11/2024 9:29 A M EDT Height 180.3 cm (5' 11 ) 11/11/2024 9:29 AM EDT Body Mass Index 20.73 11/11/2024 9:29 AM EDT Plan of Treatment Upcoming Encounters Date Type Department Care Team (Late st Contact Info) Description 03/02/2025 3:15 PM EDT Office Visit [facility] [address] [place] [phone] Katlin Triplett MD [address] [place] [address] Health Maintenance Due Date Last Done Comments Medicare Annual Wellness (AWV) 02/05/2025 0 02/06/2024, 05/07/2022, 05/03/2021 Influenza Vaccine (#1) 2025 , 05/03/2021, 04/12/2020, Additional history exists Pneumococcal Vaccine: 65+ Years Completed 04/12/2020, 04/05/2020, 11/16/2013 FIT-DNA Discontinued 04/10/2022, 03/23, 02/24/2019, Additional history exists Mammogram Discontinued 04/10/2023, 03/22, 08/18/2021, Additional history exists CT Colonography Discontinued 01/17/2024, 01/17/2024 Colonoscopy Discontinued 03/13/2024, 02/20, 12/19/2023, Additional history exists Colorectal Cancer Screening Discontinued FIT Discontinued FOBT Discontinued Sigmoidoscopy Discontinued Procedures Procedure Name Priority Date/Time Associated Diagnosis Comments MM TOMOSYNTHESIS SCREENING BI 04/10/2023 2:57 PM EDT LAB COLOGUARD COLON CANCER SCREEN Routine 04/10/2022 from Last 3 Months or Most Recently Relevant to Health Maintenance Results * MM TOMOSYNTHESIS SCREENING BI (04/10/2023 2:57 PM EDT) Anatomical Region Laterality Modality Other 04/10/2023 2:57 PM EDT Narrative 04/10/2023 2:57 [place] [address] Mammography Report Signed Patient: BERENICE SILVA MR#: [id number] : 1945 Acct:[id number] Age/Sex: 77 / F ADM Date: 04/09/23 Loc: MAMMO Attending Dr: KVNG LINTON Ordering Physician: KVNG LINTON Results: Date of Service: 04/09/23 Follow Up: Procedure(s): MM tomosynthesis screening BI Accession Number(s): [id number] cc: KVNG LINTON Patient: BERENICE SILVA. Exam Date: 04/09/2023 : 1945 Gender:F Ordering : DR KVGN LINTON M.D. Admission #: [id number] Family : Order #: [id number] CLICK HERE TO VIEW EXAM RADIOLOGY REPORT [...] ovarian cancer at age 52. LOCATION: [facility] BREAST COMPOSITION: Scattered areas fibroglandular density. [...] Signed By: 04/10/23 1458 DD/ 1457 TD/TT: Director Marketing: Procedure Note Radiology, Radiologist, MD - 04/12/2023 [facility] [place] [id number] Mammography Report Signed Patient: BERNEICE SILVA EMR#: [id number] : 1945cct:[id number] Age/Sex: 77 / FADM Date: 04/09/23 Loc: MAMMO Attending Dr: KVNG LINTON Ordering Physician: Marge LINTONults: Date of Service: 04/09/23Follow Up: Procedure(s): MM tomosynthesis screening BI Accession Number(s): [id number] cc: KVNG LINTON Patient: BERENICE SILVA Exam Date: 04/09/2023 : 1945 Gender:F Ordering : DR KVNG LINTON M.D. Admission #: [id number] Family : Order #: [id number] CLICK HERE TO VIEW EXAM RADIOLOGY REPORT [...] ovarian cancer at age 52. LOCATION: [facility] BREAST COMPOSITION: Scattered areas fibroglandular density. [...] M.D. Signed By:04/10/23 1458 DD/ 1457 TD/TT: Director Marketing: Kvng Linton MD [facility] Final Result * Cologuard® colon cancer screening (04/10/2022) COLOGUARD RESULT REPORTABLE Negative Negative [facility] Comment: NEGATIVE TEST RESULT. A negative Cologuard result indicates a low likelihood that a colorectal cancer (CRC) or advanced adenoma (adenomatous polyps with more advanced pre-malignant features) is present. The chance that a person with a negative Cologuard test has a colorectal cancer is less than 1 in 1500 (negative predictive value >99.9%) or has an advanced adenoma is less than 5.3% (negative predictive value 94.7%). These data are based on a prospective cross-sectional study of 10,000 individuals at average risk for colorectal cancer who were screened with both Cologuard and colonoscopy. (Luc Piedra et al, N Engl J Med 2014;370(14):5748-6608) The normal value (reference range) for this assay is negative. COLOGUARD RE-SCREENING RECOMMENDATION: Periodic colorectal cancer screening is an important part of preventive healthcare for asymptomatic individuals at average risk for colorectal cancer. Following a negative Cologuard result, the [place] Cancer Society and U.S. Multi-Society Task Force screening guidelines recommend a Cologuard re-screening interval of 3 years. References: [place] Cancer Society Guideline for Colorectal Cancer Screening: https://www.cancer.org/cancer/qbxdz-kzetpd-fwjljv/veuftljhx-qquwrqfpr-dnedcjq/ac s-rec ommendations.html.; Dave GALEAS, Jacobo CR, Nika ARENAS, Colorectal Cancer Screening: Recommendations for Physicians and Patients from the U.S. Multi-Society Task Force on Colorectal Cancer Screening , Am J Gastroenterology 2017; 112:0959-8279. TEST DESCRIPTION: Composite algorithmic analysis of stool DNA-biomarkers with hemoglobin immunoassay. Quantitative values of individual biomarkers are not reportable and are not associated with individual biomarker result reference ranges. Cologuard is intended for colorectal cancer screening of adults of either sex, 45 years or older, who are at average-risk for colorectal cancer (CRC). Cologuard has been approved for use by the U.S. FDA. The performance of Cologuard was established in a cross sectional study of average-risk adults aged 50-84. Cologuard performance in patients ages 45 to 49 years was estimated by sub-group analysis of near-age groups. Colonoscopies performed for a positive result may find as the most clinically significant lesion: colorectal cancer [4.0%], advanced adenoma (including sessile serrated polyps greater than or equal to 1cm diameter) [20%] or non- advanced adenoma [31%]; or no colorectal neoplasia [45%]. These estimates are derived from a prospective cross-sectional screening study of 10,000 individuals at average risk for colorectal cancer who were screened with both Cologuard and colonoscopy. (Luc Reardon al, N Engl J Med 2014;370(14):8881-2183.) Cologuard may produce a false negative or false positive result (no colorectal cancer or precancerous polyp present at colonoscopy follow up). A negative Cologuard test result does not guarantee the absence of CRC or advanced adenoma (pre-cancer). The current Cologuard screening interval is every 3 years. ([employer] Cancer Society and U.S. Multi-Society Task Force). Cologuard performance data in a 10,000 patient pivotal study using colonoscopy as the reference method can be accessed at the following location: www.[employer]/results. Additional description of the Cologuard test process, warnings and precautions can be found at www.[employer].com. 04/10/2022 us Kvng Linton MD LAB [facility] Final Result [facility] from Last 3 Months or Most Recently Relevant to Health Maintenance Insurance [employer]AGE Care Teams Welcome Wagon Hostess Relationship Specialty Start Date End Date Kvng Linton MD [address] [address] PCP - General Internal Medicine 11/27/22 Kvng Linton MD [address] [facility] [address] [place] [address] PCP - Rashid GALVEZ 07/22/23 Reina Palma LPN [address] [address] 10/06/24
--- OUTSIDE RECORDS SUMMARY | 2025-01-27 13:03 | XMS_ITS | Patient Health Record ---
Author Organization [facility] [place] Address [address] [place] [address] Care Team Providers Care Technical Education Teacher Name Role Phone Yanira DELONG, Hayde Primary Care Provider Unavaila ble Allergies Allergen (clinical drug ingredient) Drug/Non Drug Allergy documented on EMR Reaction Allergy Type Onset Date Status Amoxicillin-Clavulan at e (amoxicillin-clavulana te) Unknown Drug Allergy Active Reason For Referral No Information Medications Medication SIG (Take, Route, Frequency, Duration) Notes Start Date End Date Status Aspir-81 81 MG 1 tablet Orally Once a day Active Krill Oil 300 MG Orally Act anson traMADol HCl 50 MG 1 tablet as needed O rally every 6 hrs Active Simvastatin 20 MG 1 tablet in the even ing Orally Once a day Active Omeprazole Active Calcium Carbonate 1500 MG 1 tablet with food Orally Twice a day Active Atenolol-Chlorthalidone tablet Active Meloxicam Active SM Coenzyme Q-10 100 mg capsule Active multivitamin Multiple Vitamins Active Flonase 50 MCG/DOSE 1 spray in each nost ril Nasally Once a day Active SM Coenzyme Q-10 100 mg capsule Active Omeprazole Active Atenolol-Chlorthalidone tablet Active multivitamin Multiple Vitamins Active Meloxicam Active Social History Tobacco Use: Social History Observation Description Date Details (start date - stop date) Never Smoker NA - NA Tobacco Use/Smoking Question Answer Notes Patient is a nonsmoker Problems Problem Type SNOMED Code ICD Code Onset Dates Problem Status W/U Status Risk Notes Problem Anxiety (31226871) Anxiety (F41.9) Active confi rmed Problem Peripheral neuropath y (972055210) Peripheral neuropathy (G62.9) Active confirmed Problem Transient ischemic attack (121862687) TIA (transient ischemic attack) (G45.9) Active confirmed Problem Restless legs (31879921) RLS (restless legs syndrome) (G25.81) Active confirmed Problem Edema (732265904) Edema extremit ies (R60.0) Active confirmed Problem Hyperlipoproteinemia (8665487) 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) Active confirmed Problem Acute osteomyelitis of ankle and/or foot (325788974) Osteomyelitis of ankle or foot, right, acute (M86.171) Active confirmed Problem Essential hypertension (85401001) BP (high blood pressure) (I10) Active confirmed Problem 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 (L97.512) Active confirmed Problem Atrophy of nail (116124150) Atrophy of nail (L60.3) Active confirmed Problem Chronic 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 layer exposed (L97.412) Active confirmed Problem Chronic ulcer of right foot (disorder) (42065165979459157) Chronic ulcer of right foot with fat layer exposed (L97.512) Active confirmed Plan Of Treatment Pending Test Test Name Order Date ACID FAST SMEAR AND CX 10/22/2022 FUNGAL CULTURE 10/22/2022 Insurance Providers Payer Name Payer Address Payer Phone Subscriber Number Group Number Insured Name Patient Relationship to Insured Coverage Start Date Coverage End Date [employer] ADV PLAN [address] [place] [phone] [id number] [id number] Disla Self - patient is the insured 4 Medical (General) History Medical History History ICD Code History of hypertension History of diagnoses, syndro mes and conditions Suspicious Changing Skin Lesion on Back Unspecified essential hypertension 401.9 Arthritis 716.90 GERD (gastroesophageal reflux disease) 5 30.81 Lung nodule 793.11 Surgical History Surgery Date(Month/Year) section Surgical / procedural histor y NAVEL CYST; Excision of Changing Suspicious Skin Lesion on Back
== END 2025-01-27 13:00 | disposition home or self-care (01) ==
LOC: WC 13:00
PROVIDERS: PCP Internal Medicine; Visit Provider Podiatrist Foot & Ankle Surgery
DX: L97.519 Non-pressure chronic ulcer of other part of right foot with unspecified severity (principal); L97.415 Non-pressure chronic ulcer of right heel and midfoot with muscle involvement without evidence of necrosis
CPT/HCPCS: 11043; 73630

== ENCOUNTER 2025-02-10 15:30 | Outpatient (OUT) | payer MEDICARE, SELFPAY | END 2025-02-10 15:31 | disposition home or self-care (01) | LOC: WC 15:31 | PROVIDERS: PCP Internal Medicine; Visit Provider Podiatrist Foot & Ankle Surgery | DX: L97.415 Non-pressure chronic ulcer of right heel and midfoot with muscle involvement without evidence of necrosis (principal) | CPT/HCPCS: 11043 ==

== ENCOUNTER 2025-02-24 15:06 | Outpatient (OUT) | payer MEDICARE, SELFPAY | END 2025-02-24 15:07 | disposition home or self-care (01) | LOC: WC 02-26 13:06 | PROVIDERS: PCP Internal Medicine; Visit Provider Podiatrist Foot & Ankle Surgery | DX: L97.415 Non-pressure chronic ulcer of right heel and midfoot with muscle involvement without evidence of necrosis (principal) | CPT/HCPCS: 11042 ==

== ENCOUNTER 2025-03-10 09:23 | Outpatient (OUT) | payer MEDICARE, SELFPAY ==
--- OUTSIDE RECORDS SUMMARY | 2025-03-10 09:34 | XMS_ITS | CCD ---
Author Organization [facility] Care Team Providers Care School Age Program Associate Name Role Phone ANUP JOHN Attending Unavailable HIGHLANDERANUP Admitting Unavailable LINTON, DR DAWSON Primary Care Unavailable HIGHLANDERANUP Attending Unavailable HIGHLANDER, ANUP Anderson Admitting Unavailable LINTON, DR DAWSON Primary Care Unavailable HIGHLANDERANUP Attending Unavailable HIGHLANDERANUP Admitting Unavailable LINTON, DR DAWSON Primary Care Unavailable LINTON, DR DAWSON Primary Care Unavailable HIGHLANUP HUBBARD Attending Unavailable HIGHLANUP HUBBARD Consulting Unavailable ANUP JOHN Admitting Unavailable LINTON, DR DAWSON Primary Care Unavailable HIGHLANDERANUP Admitting Unavailable HIGHLANDER, ANUP Anderson Attending Unavailable HIGHLANDER, ANUP Anderson Attending Unavailable HIGHLANDER, ANUP Anderson Admitting Unavailable LINTON, DR DAWSON Primary Care Unavailable HIGHLANUP HUBBARD Attending Unavailable HIGHLANDERANUP Admitting Unavailable LINTON, DR [...] Care Unavailable HIGHLANDER, ANUP Anderson Attending Unavailable HIGHLHAYDEE, ANUP Anderson Admitting Unavailable HIGHLANDER, ANUP Anderson [...] Admitting Unavailable AYYAGARI ., MAURICIO Consulting Unavailable MCCORNAHALEIGH PEGUERO Consulting Unavailable HIGHLANDER, ANUP Anderson Attending Unavailable HIGHLANDER, ANUP Anderson Admitting Unavailable LINTON, DR DAWSON Primary Care Unavailable WEST, DR AYDEN Salmon Consulting Unavailable HIGHLANDER, ANUP Anderson Consulting Unavailable YARELIS ., CAROLYN FROST Consulting Unavailable SHARP, SVEN Consulting Unavailable GEMBUS, KVNG Consulting Unavailable HIGHLANDER, ANUP Anderson Attending Unavailable LINTON, DR DAWSON Primary Care Unavailable HIGHLANDER, ANUP Anderson Admitting Unavailable LINTON, DR DAWSON Primary Care Unavailable HIGHLANDER, ANUP Anderson Admitting Unavailable HIGHLANDER, ANUP Anderson Attending Unavailable LINTON, DR DAWSON Primary Care Unavailable HIGHLANDER, ANUP Anderson Attending Unavailable ZIEBER, DR HALEIGH Pyle Consulting Unavailable HIGHLANDER, ANUP Anderson Admitting Unavailable HIGHLANDER, ANUP Anderson Consulting Unavailable CHICHO, KELBY Consulting Unavailable YARELIS ., CAROLYN FROST Consulting Unavailable SHARP, SVEN Consulting Unavailable CLARISA II, RACHEL Consulting Unavailable HIGHLANDER, ANUP Anderson Attending Unavailable HIGHLANDER, ANUP Anderson Consulting Unavailable HIGHLANDER, ANUP Anderson Admitting Unavailable LINTON, DR DAWSON Primary Care Unavailable ALFREDOTHERESE Consulting Unavailable LINTON, DR DAWSON Primary Care Unavailable HIGHLANDER, ANUP Anderson Attending Unavailable HIGHLANDER, ANUP Anderson Admitting Unavailable LINTON, DR DAWSON Primary Care Unavailable HIGHLANDER, ANUP Anderson Admitting Unavailable HIGHLANDER, ANUP Anderson Attending Unavailable WEST, DR AYDEN Salmon Consulting Unavailable HIGHLANDER, ANUP Anderson Consulting Unavailable Kvng Linton MD Primary Care Provider Kvng Linton MD Unavailable IRWIN HODGE Attending Unavailable IRWIN HODGE Admitting Unavailable ROYA MATTHEWS Primary Care Unavailable KAMLA AYALA Referring Unavailable KVNG LINTON Primary Care Unavailable JESUS BINGHAM Attending Unavailable KVNG LINTON Referring Unavailable KVNG LINTON Primary Care Unavailable KAMLA AYALA Attending Unavailable KVNG LINTON Referring Unavailable KVNG LINTON Primary Care Unavailable SEBASTIAN LAWSON Attending Unavailable KVNG LINTON B Referring Unavailable KVNG LINTON B Primary Care Unavailable KAMLA AYALA Admitting Unavailable KAMLA AYALA Attending Unavailable KAMLA AYALA Referring Unavailable LIANET KVNG B Primary Care Unavailable KAMLA AYALA Attending Unavailable KAMLA AYALA Referring Unavailable LIANET KVNG B Primary Care Unavailable AYDEN LAN Attending Unavailable LIANET KVNG B Primary Care Unavailable KVNG LINTON B Referring Unavailable LIANET KVNG B Primary Care Unavailable RENNYELYSSADOMONIQUERAHEEL M Admitting Unavailable RENNY, ELYSSANATALLRAHEEL M Attending Unavailable LIANET KVNG B Primary Care Unavailable RENNY, ELYSSACR M Attending Unavailable RENNYSEBASTIAN WILSON M Referring Unavailable KVNG LINTON B Primary Care Unavailable BRITTANY DEGROOT Attending Unavailable KVNG LINTON B Primary Care Unavailable Saturday REFRIGERATOR CAR ICER, Elvi Unavailable Saturday REFRIGERATOR CAR ICER, Elvi Unavailable Heydi Parker RN Unavailable [phone] [place] REFRIGERATOR CAR ICER, Reina Unavailable Unavailable [place] REFRIGERATOR CAR ICER, Reina Unavailable TSERING STARR Attending Unavailable GABRIELA GILMAN Attending Unavailable NICKY RIDDLE Attending Unavailable KATLIN ROMERO Attending Unavailable KVNG LINTON Attending Unavailable NICKY RIDDLE Attending Unavailable Allergies Allergy Classification Reported Allergen(s) Allergy Type Date of Onset Reaction(s) Facility (1 source) Amoxicillin / Clavulanate Drug Allergy [facility] (1 source) Cephalexin Drug Allergy 9 [facility] (1 source) Sulfonamides (Antibiotic) Drug allergy (disorder) [facility] (20 sources) Sulfonamides (Antibiotic) Drug Allergy 3 [facility] (20 sources) Amoxicillin-Pot Clavulanate; Translations: [AMOXICILLIN-POT CLAVULANATE] Drug Allergy 1 Nausea Only [facility] (3 sources) Sulfonamides (Antibiotic); Translations: [SULFA (SULFONAMIDE ANTIBIOTICS)] Propensity to adverse reactions to drug (disorder) 2 [facility] Medications Current Medications Medication Drug Class(es) Dates Sig (Normalized) Sig (Original) acetaminophen 325 mg / HYDROcodone bitartrate 5 mg oral tablet (3 sources) Opioid Agonist Start: 10-22-2022 End: 09-04-2023 take 1 tablet by mouth four times daily as needed HYDROcodone-aceta minophen ([place]) 5-325 MG tablet Take 1 tablet by mouth 4 (four) times a day as needed. 0 10/22/2022 09/04/2023 Discontinued (Therapy completed) ALPRAZolam 0.5 mg oral tablet (9 sources) Benzodiazepine Start: 01-09-2024 End: 07-30-2024 ALPRAZolam (Xanax) 0.5 MG tablet Indications: Anxiety about health Take 1 tablet (0.5 mg) by mouth as needed at bedtime for anxiety 30 tablet 1 01/09/2024 07/30/2024 Discontinued (Other) ascorbic acid 250 mg oral tablet (15 sources) Vitamin C End: 02-23-2025 take 1 tablet by mouth in the morning ascorbic acid (Vitamin C) 250 MG tablet Take 250 mg by mouth in the morning. 02/23/2025 Discontinued (Other) aspirin 81 mg delayed release oral tablet (20 sources) Platelet Aggregation Inhibitor, Nonsteroidal Anti-inflammatory Drug take 1 tablet by mouth once daily aspirin 81 MG EC tablet Take 81 mg by mouth Daily Active End: 07-30-2024 aspirin 325 MG tablet Take 8 1 mg by mouth Daily 07/30/2024 Discontinued (Other) take 1 tablet by joe th in the morning aspirin 325 MG tablet Take 325 mg by mouth in the morning. Active atorvastatin 10 mg oral tablet (20 sources) HMG-CoA Reductase Inhibitor Start: 04-29-2024 take 1 tablet by mouth in the morning atorvastatin (Lipitor) 10 MG tablet Indications: Dyslipidemia Take 1 tablet (10 mg) by mouth in the morning. 100 tablet 3 04/29/2024 Active Start: 09-16-2023 take 1 tablet by joe th once daily in the morning atorvastatin (Lipitor) 10 MG tablet Indications: Dyslipidemia (CMS/HCC) TAKE 1 TABLET BY MOUTH EVERY DAY IN THE MORNING 90 tablet 09/16/2023 Active Start: 09-04-2023 take 1 tablet by [...] morning. 90 tablet 0 09/04/2023 Active Start: 06-10-2023 End: 09-04-2023 take 1 tablet by mouth once daily in the morning atorvastatin (Lipitor) 10 MG tablet Indications: Dyslipidemia (CMS/HCC) TAKE 1 TABLET BY MOUTH EVERY DAY IN THE MORNING 90 tablet 0 06/10/2023 09/04/2023 Discontinued (Reorder) calcium carbonate 500 mg oral tablet (12 sources) End: 07-30-2024 calcium carbonate (Os-King) 1250 (500 Ca) MG tablet every 12 (twelve) hours. 07/30/2024 Discontinued (Other) cholecalciferol 0.05 mg oral tablet (18 sources) Vitamin D take 1 tablet by mouth in the morning cholecalciferol (Vitamin D-3) 50 MCG (2000 UT) tablet Take 1,000 Units by mouth in the morning. Active cloNIDine hydrochloride 0.1 mg oral tablet (12 sources) Central alpha-2 Adrenergic Agonist Start: 11-11-2024 End: 12-11-2024 take 1 tablet by mouth every eight hours for hypertension cloNIDine (Catapres) 0.1 MG tablet Indications: Essential (primary) hypertension TAKE 1 TABLET BY MOUTH EVERY 8 HOURS IF NEEDED FOR HIGH BLOOD PRESSURE FOR 170 OR GREATER 30 tablet 12/09/2024 Active gabapentin 600 mg oral tablet (20 sources) Anti-epileptic Agent Start: 02-01-2025 gabapentin (Neurontin) 600 MG tablet Indications: Neuralgia TABLET 1/2 TABLET BY MOUTH TWICE A DAY AND TAKE 1 TABLET BY MOUTH EVERY DAY AT BEDTIME 180 tablet 3 02/01/2025 Active Start: 02-28-2024 gabapentin (Ne urontin) 600 MG tablet Indications: Neuralgia TABLET 1/2 TABLET BY MOUTH TWICE A DAY AND TAKE 1 TABLET BY MOUTH EVERY DAY AT BEDTIME 180 tablet 3 02/28/2024 Active Start: 06-04-2023 gabapentin (Ne urontin) 600 MG tablet Indications: Neuralgia TABLET 1/2 TABLET BY MOUTH TWICE A DAY AND TAKE 1 TABLET BY MOUTH EVERY DAY AT BEDTIME 180 tablet 3 06/04/2023 Active hydroCHLOROthiazide 12.5 mg / losartan potassium 50 mg oral tablet (3 sources) Thiazide Diuretic, Angiotensin 2 Receptor Cayla take 1 tablet by mouth in the morning losartan-hydroCHLOROthiazide (Hyzaar) 50-12.5 MG tablet Take 1 tablet by mouth in the morning and 1 tablet before bedtime. 0 Active hydroCHLOROthiazide 12.5 mg / olmesartan medoxomil 20 mg oral tablet (20 sources) Thiazide Diuretic, Angiotensin 2 Receptor Cayla Star t: 09-19 End: 04-10 25 take 1 tablet by mouth once daily olmesartan-hydroCHLOROthiazide (BENIcar HCT) 20-12.5 MG tablet Indications: Essential (primary) hypertension Take 1 tablet by mouth Daily 07/30/2024 Active ibuprofen 800 mg oral tablet (15 sources) Nonsteroidal Anti-inflammator y Drug Star t: 04-22 End: 12-08 25 take 1 tablet by mouth every six hours as needed for pain ibuprofen 800 MG tablet Take 800 mg by mouth every 6 (six) hours if needed for moderate pain 05/13/2024 02/23/2025 Discontinued (Therapy completed) linaclotide 0.072 mg oral capsule (9 sources) Guanylate Cyclase-C Agonist Star t: 09-10 End: 04-10 25 take 1 capsule by mouth before mealtime linaCLOtide (Linzess) 72 MCG capsule Indications: Chronic idiopathic constipation Take 1 capsule (72 mcg) by mouth in the morning. Take before meals. Do not crush or chew.. 10/22/2023 07/30/2024 Discontinued (Other) meloxicam 15 mg oral tablet (20 sources) Nonsteroidal Anti-inflammator y Drug Star t: 01-19 End: 08-23 25 take 1 tablet by mouth once daily at mealtime meloxicam (Mobic) 15 MG tablet Indications: Inflammatory and toxic neuropathy (HCC) , Neurogenic pain Take 1 tablet (15 mg) by mouth Daily Take with food 90 tablet 3 09/18/2024 Active Start: 04-16-2023 take 1 tablet by joe th once daily meloxicam (Mobic) 15 MG tablet Indications: Inflammatory and toxic neuropathy (CMS/HCC) , Neurogenic pain TAKE 1 TABLET BY MOUTH EVERY DAY 60 tablet 2 04/16/2023 Active Multiple Vitamin (Multi-Vitamin) tablet (20 sources) take 1 tablet by mouth in the morning Multiple Vitamin (Multi-Vitamin) tablet Take 1 tablet by mouth in the morning. Active mupirocin 0.02 mg/mg topical ointment (2 sources) RNA Synthetase Inhibitor Antibacterial Start: mupirocin (Bactroban) 2 % ointment Indications: Epidermal inclusion cyst Apply to affected area (abdomen) with dressing changes, 30 day supply 22 g 03/02/2025 Active rOPINIRole 0.5 mg oral tablet (20 sources) Nonergot Dopamine Agonist Start: End: take 2 tablets by mouth in the morning rOPINIRole (Requip) 0.5 MG tablet Indications: Restless Leg Syndrome Take 2 tablets (1 mg) by mouth in the morning and 2 tablets (1 mg) before bedtime. 360 tablet 3 07/30/2024 Active Start: 06-17-2023 take 2 tablets by mo [facility] in the morning rOPINIRole (Requip) 0.5 MG tablet Indications: Restless legs syndrome (RLS) TAKE 2 TABLETS BY MOUTH IN THE MORNING AND TAKE 2 TABLETS AT BEDTIME 360 tablet 1 06/17/2023 Active sulfamethoxazole 800 mg / trimethoprim 160 mg oral tablet (1 source) Dihydrofolate Reductase Inhibitor Antibacterial, Sulfonamide Antimicrobial Start: 04-06-2024 End: 04-16-2024 take 1 tablet by mouth once in the morning, then take 1 tablet by mouth once at bedtime sulfamethoxazole-trimethoprim (Bactrim DS) 800-160 MG per tablet Indications: Follicular cyst of skin and subcutaneous tissue , Carbuncle and furuncle of trunk Take 1 tablet by mouth in the morning and 1 tablet before bedtime. Do all this for 10 days. 20 tablet 04/06/2024 04/16/2024 Active traMADol hydrochloride 50 mg oral tablet (20 sources) Opioid Agonist Start: 02-06-2024 End: 03-05-2025 take 1 tablet by mouth every six hours for pain traMADol (Ultram) 50 MG tablet Indications: Primary osteoarthritis, unspecified site Take 1 tablet (50 mg) by mouth every 6 (six) hours if needed for severe pain for up to 10 days 40 tablet 02/23/2025 03/05/2025 [facility] hours as needed traMADol (Ultram) 50 MG tablet 1 TABLET NEEDED ORALLY EVERY 6 HOURS 14 DAYS 0 Active Problems Active Problems Problem Classification Problem Date Documented Da te Episodic/Chronic Acquired foot deformities (20 sources) Other hammer toe(s) (acquired), right foot; Translations: [Acquired hallux malleus] Onset: 2022 03-12-2023 Chronic Administrative/social admission (2 sources) Patient encounter status; Translations: [Other specified counseling] 02-23-2025 Episodic Anxiety disorders (20 sources) Anxiety disorder, unspecified; Translations: [Anxiety] Onset: 2022 03-12-2023 Chronic Chronic ulcer of skin (20 sources) Non-pressure chronic ulcer of other part of right foot with fat layer exposed; Translations: [Non-pressure chronic ulcer of other part of right foot with necrosis of bone] Onset: 01-11-2022 Resolved: 02-06-2024 Chronic Diabetes mellitus with complications (1 source) Type 2 diabetes mellitus with foot ulcer; Translations: [TYPE 2 DM W/FOOT ULCER] Onset: 10-19-2022 Chronic Disorders of lipid metabolism (20 sources) Hyperlipidemia, unspecified; Translations: [Dyslipidemia] Onset: 08-22-2009 Chronic Diverticulosis and diverticulitis (2 sources) Diverticulosis of large intestine without perforation or abscess without bleeding; Translations: [Diverticulosis of intestine, part unspecified, without perforation or abscess without bleeding] Onset: 12-19-2023 Chronic Esophageal disorders (20 sources) Gastro-esophageal reflux disease without esophagitis; Translations: [Laryngopharyngeal reflux] Onset: 2022 03-12-2023 Chronic Essential hypertension (20 sources) Essential (primary) hypertension; Translations: [Essential hypertension] Onset: 2022 03-09-2023 Chronic Genitourinary symptoms and ill-defined conditions (2 sources) Increased frequency of urination; Translations: [Frequency of micturition] 09-04-2023 Episodic Intestinal obstruction without hernia (1 source) Other intestinal obstruction unspecified as to partial versus complete obstruction; Translations: [Other intestinal obstruction unspecified as to partial versus complete obstruction] Onset: 02-12-2024 Episodic Menopausal disorders (20 sources) Decreased estrogen level; Translations: [Other primary ovarian failure] Onset: 03-12-2023 03-12-2023 Chronic Nutritional deficiencies (20 sources) Vitamin D deficiency; Translations: [Vitamin D deficiency, unspecified] Onset: 07-30-2024 07-30-2024 Chronic Osteoarthritis (20 sources) Primary osteoarthritis, right shoulder; Translations: [Arthritis of shoulder region joint] Onset: 08-22-2009 Resolved: 02-23-2025 03-12-2023 Chronic Other acquired deformities (1 source) Contracture, right ankle; Translations: [CONTRACTURE RIGHT ANKLE] Onset: 2022 Chronic Other acquired deformities (20 sources) Equinus contracture of the ankle; Translations: [Contracture, right ankle] Onset: 03-12-2023 03-12-2023 Chronic Other aftercare (1 source) Other usp (current) drug therapy; Translations: [OTH DETENTION CURRENT DRUG THERAPY] Onset: 10-31-2022 Episodic Other connective tissue disease (1 source) Arthrodesis status; Translations: [ARTHRODESIS STATUS] Onset: 10-31-2022 Episodic Other connective tissue disease (4 sources) Pain in right foot; Translations: [PAIN IN RIGHT FOOT] Onset: 10-09-2022 Episodic Other gastrointestinal disorders (20 sources) Chronic idiopathic constipation; Translations: [Chronic idiopathic constipation] Onset: 10-22-2023 10-22-2023 Chronic Other gastrointestinal disorders (2 sources) Constipation, unspecified; [...] Other hereditary and degenerative nervous system conditions (20 sources) Restless legs; Translations: [Restless legs syndrome] Onset: 03-12-2023 03-12-2023 Chronic Other lower respiratory disease (2 sources) Snoring; Translations: [Snoring] 07-30-2024 Episodic Other lower respiratory disease (2 sources) Apnea; Translations: [Apnea, not elsewhere classified] 07-30-2024 Episodic Other nervous system disorders (1 source) Other chronic pain; Translations: [OTHER CHRONIC PAIN] Onset: 2022 Chronic Other nervous system disorders (5 sources) Polyneuropathy, unspecified; Translations: [POLYNEUROPATHY UNSPECIFIED] Onset: 03-23-2022 Chronic Other nervous system disorders (20 sources) Hereditary motor and sensory neuropathy; Translations: [Hereditary motor and sensory neuropathy] Onset: 03-12-2023 03-12-2023 Chronic Other nervous system disorders (20 sources) Inflammatory and toxic neuropathy; Translations: [Polyneuropathy due to other toxic agents] Onset: 03-12-2023 03-12-2023 Chronic Other nervous system disorders (20 sources) Chronic pain; Translations: [Other chronic pain] Onset: 03-12-2023 03-12-2023 Chronic Other nervous system disorders (2 sources) Burning sensation; Translations: [Other disturbances of skin sensation] 07-30-2024 Episodic Other non-traumatic joint disorders (1 source) Charcot's joint, right ankle and foot; Translations: [CHARCOTS JOINT RIGHT ANKLE AND F] Onset: 2022 Chronic Other non-traumatic joint disorders (1 source) Other specified arthritis, unspecified site; Translations: [OTHER SPECIFIED ARTHRITIS UNS SITE] Onset: 2022 Chronic Other non-traumatic joint disorders (20 sources) Charcot's arthropathy; Translations: [Charcot's joint, unspecified site] Onset: 03-12-2023 Resolved: 02-06-2024 03-12-2023 Chronic Other non-traumatic joint disorders (20 sources) Polyarthropathy; Translations: [Polyarthritis, unspecified] Onset: 03-12-2023 03-12-2023 Chronic Other nutritional; endocrine; and metabolic disorders (20 sources) Xanthomatosis; Translations: [Other lipid storage disorders] Onset: 03-12-2023 03-12-2023 Chronic Other skin disorders (5 sources) Nail dystrophy; Translations: [NAIL DYSTROPHY] Onset: 06-19-2022 Episodic Other skin disorders (3 sources) Follicular cysts of skin and subcutaneous tissue; Translations: [Follicular cyst of the skin and subcutaneous tissue, unspecified] 05-04-2024 Episodic Other skin disorders (4 sources) Infection of sebaceous cyst; Translations: [Other specified follicular disorders] 11-11-2024 Episodic Other skin disorders (4 sources) Epidermoid cyst; Translations: [Epidermal cyst] 12-30-2024 Episodic Other skin disorders (7 sources) Onychoatrophy; Translations: [Nail dystrophy] Onset: 02-23-2025 02-23-2025 Episodic Residual codes; unclassified (1 source) Localized edema; Translations: [LOCALIZED EDEMA] Onset: 2022 Episodic Residual codes; unclassified (2 sources) Tenderness ; Translations: [Pain, unspecified] 12-30-2024 Episodic Residual codes; unclassified (7 sources) Edema; Translations: [Edema, unspecified] Onset: 02-23-2025 02-23-2025 Episodic Residual codes; unclassified (2 sources) Pain; Translations: [Pain, unspecified] 03-02-2025 Episodic Rheumatoid arthritis and related disease (2 sources) Rheumatoid arthritis; Translations: [Rheumatoid arthritis, unspecified] 11-11-2024 Chronic Screening and history of mental health and substance abuse codes (1 source) Personal history of nicotine dependence; Translations: [PERSONAL HISTORY OF NICOTINE DEPEND] Onset: 10-31-2022 Episodic Septicemia (except in labor) (1 source) Sepsis, unspecified organism; Translations: [Sepsis, unspecified organism] Onset: 10-26-2023 Episodic Skin and subcutaneous tissue infections (8 sources) Cellulitis of right lower limb; Translations: [Cellulitis of left lower limb] Onset: 07-27-2022 Episodic Spondylosis; intervertebral disc disorders; other back problems (20 sources) Degeneration of lumbar intervertebral disc; Translations: [Other intervertebral disc degeneration, lumbar region] Onset: 11-30-2020 03-12-2023 Chronic Transient cerebral ischemia (9 sources) Transient cerebral ischemia; Translations: [Transient cerebral ischemic attack, unspecified] Onset: 02-23-2025 09-04-2023 Chronic Unclassified (1 source) CONTACT W/AND (SUSP) EXPOS COVID-19; Translations: [CONTACT W/AND (SUSP) EXPOS COVID-19] Onset: 05-09-2022 Unclassified (1 source) ABNORMAL COLONOGRAPHY Onset: 02-25-2024 Unclassified (1 source) change in bowel habits, constipation Onset: 12-19-2023 Past or Other Problems Problem Classification Problem Date Documented Date Episodic/Chronic Acquired foot deformities (1 source) Other acquired deformities of right foot; Translations: [OTHER ACQUIRED DEFORMITIES RT FOOT] Onset: 2 Episodic Allergic reactions (20 sources) Actinic cheilitis; Translations: [Other specified acute skin changes due to ultraviolet radiation] Onset: 3 Resolved: 4 03-12-2023 Episodic Cardiac dysrhythmias (20 sources) Tachycardia; Translations: [Tachycardia, unspecified] Onset: 4 10-22-2023 Episodic Deficiency and other anemia (1 source) Anemia, unspecified; Translations: [ANEMIA UNSPECIFIED] Onset: 2 Episodic Fluid and electrolyte disorders (2 sources) Hypo-osmolality and hyponatremia; Translations: [Hypokalemia] Onset: 2 Episodic Immunizations and screening for infectious disease (20 sources) Other specified abnormal immunological findings in serum; Translations: [Rheumatoid factor positive] Onset: 3 03-12-2023 Episodic Infective arthritis and osteomyelitis (except that caused by tuberculosis or sexually transmitted disease) (8 sources) Other osteomyelitis, lower leg; Translations: [Other acute osteomyelitis, right ankle and foot] Onset: 2 Resolved: 5 02-23-2025 Chronic Mood disorders (20 sources) Mood disorders Onset: 4 Resolved: 5 02-06-2024 Other bone disease and musculoskeletal deformities (20 sources) Osteopenia; Translations: [Other specified disorders of bone density and structure, multiple sites] Onset: 3 03-12-2023 Episodic Other connective tissue disease (20 sources) Spasm of cervical paraspinous muscle; Translations: [Other muscle spasm] Onset: 3 03-12-2023 Episodic Other connective tissue disease (20 sources) Impingement syndrome of right shoulder region; Translations: [Impingement syndrome of right shoulder] Onset: 3 03-12-2023 Episodic Other connective tissue disease (20 sources) Muscle atrophy; Translations: [Muscle wasting and atrophy, not elsewhere classified, unspecified site] Onset: 3 03-12-2023 Episodic Other connective tissue disease (20 sources) Neurogenic pain; Translations: [Neuralgia and neuritis, unspecified] Onset: 3 03-12-2023 Episodic Other gastrointestinal disorders (20 sources) Dysphagia; Translations: [Dysphagia, pharyngoesophageal phase] Onset: 3 03-12-2023 Episodic Other infections; including parasitic (20 sources) History of sepsis; Translations: [Personal history of other infectious and parasitic diseases] Onset: 5 07-30-2024 Episodic Other nervous system disorders (20 sources) Right-sided piriformis syndrome; Translations: [Lesion of sciatic nerve, right lower limb] Onset: 2 Resolved: 5 10-31-2023 Chronic Other screening for suspected conditions (not mental disorders or infectious disease) (20 sources) Blood chemistry abnormal; Translations: [Abnormal finding of blood chemistry, unspecified] Onset: 3 03-12-2023 Episodic Other skin disorders (1 source) Corns and callosities; Translations: [CORNS AND CALLOSITIES] Onset: 2 Episodic Spondylosis; intervertebral disc disorders; other back problems (20 sources) Sciatica; Translations: [Sciatica, left side] Onset: 1 03-12-2023 Episodic Results Test Name Value Interpretation Reference Range Facility No Panel Informationon 03-02 Lesion length (cm): 2.3 Lesion width (cm): 2 Margin per side (cm): 0 Total excision diameter (cm): 2.3 Informed consent: discussed and consent obtained Informed consent comment: Risks and possible complications were discussed as noted on the consent form. The consent form was signed prior to the procedure. Timeout: patient name, date of , surgical site, and procedure verified Timeout comment: Patient and provider identified site. Site was marked and excision was drawn out. Photo was taken and shown to patient, patient verified this is the correct site. Procedure prep: Patient was prepped and draped in usual sterile fashion (The planned incision lines were drawn along relaxed skin tension lines, if possible, to minimize scarring and deformity of surrounding structures.) Prep type: Chlorhexidine Anesthesia: the lesion was anesthetized in a standard fashion Anesthesia comment: The local anesthetic was injected to create a field block at the site of the procedure. Anesthetic: 1% lidocaine w/ epinephrine 1-100,000 buffered w/ 8.4% NaHCO3 Instrument used: #15 blade Instrument used comment: Incisions were made as drawn, and the surrounding tissue was undermined until the skin edges could be approximated without undue tension. Any tissue redundancies were removed. Hemostasis achieved with: electrodesiccation Additional details: Amount of lidocaine used: 6.0 ml Estimated blood loss: <1.0 ml [facility] Complexity: Intermediate Final length (cm): 2.3 Reason for type of repair: allow closure of the large defect Undermining: edges undermined Undermining comment: The surrounding tissue was undermined until the skin edges could be approximated without undue tension. Any tissue redundancies were removed. Subcutaneous layers (deep stitches): Suture size: 3-0 Suture type comment: Biosyn Stitches: Buried horizontal mattress (Closure was performed in a layered fashion with subcutaneous tissue closed first using tension-bearing absorbable sutures to the level of the superficial fascia.) Fine/surface layer approximation (top stitches): Suture size: 4-0 Suture type: Prolene (polypropylene) Stitches: simple running Stitches comment: Epicuticular skin sutures were then placed with minimal tension. Suture removal (days): 14 Outcome: patient tolerated procedure well with no complications Post-procedure details: sterile dressing applied and wound care instructions given Post-procedure details comment: It was emphasized to the patient to contact the office for any signs of infection, uncontrollable bleeding, or complications. Dressing type: bandage [facility] XR FOOT RT MIN 3Von 01-28-20 25 [place] [address] XRay Report Signed Patient: BERENICE SILVA MR#: [id number] : 1945 Acct:[id number] Age/Sex: 79 / F ADM Date: 01/27/25 Loc: RAD Attending Dr: Anup John D.P.M. Ordering Physician: Anup John D.P.M. Date of Service: 01/27/25 Procedure(s): XR foot RT min 3V Accession Number(s): [id number] cc: KVNG LINTON ; Anup John D.P.M. [place] [id number] Patient Name: BERENICE SILVA MRN: [facility]:[id number] date: 1945 Sex: F Assigned Patient Location: [facility] Current Patient Location: Accession/Order Number: [id number] Exam Date: 01/27/2025 15:38 Report Date: 01/27/2025 15:41 At the request of: ANUP JOHN DPNabor Procedure: XR foot RT min 3V 3 views right foot plain film COMPARISON:10/22/2022 HISTORY: Reassessment of hardware. Ulcer bottom of great toe. ACUTE FINDINGS: None DEGENERATIVE CHANGE: Similar articular erosive changes of the phalanges and first metatarsal phalangeal joint. SOFT TISSUE FINDINGS: No subcutaneous air. No radiodense foreign body. JOINT EFFUSION: None POSTOP CHANGES: Stable fusion hardware. Second toe amputation stable. BONE MINERALIZATION: Adequate XR/XR foot RT min 3V IMPRESSION: Stable findings. No hardware failure. Similar erosive changes. No subcutaneous air. Impression dictated by: Lew Fish M.D. 01/27/2025 3:41 PM Dictation Location: [place] [address] Electronically authenticated by: [id number] Y Date: 01/27/2025 15:41 Dictated By: Lew Fish D.O. Signed By: 01/27/25 1543 DD/ 1541 TD/TT: Income Tax Auditor: [facility] Radiology, Radiologist, MD - 01/27/2025 [place] [address] XRay Report Signed Patient: BERENICE SILVA MR#: [id number] : 1945 Acct:[id number] Age/Sex: 79 / F ADM Date: 01/27/25 Loc: [facility] Attending Dr: Anup John D.P.M. Ordering Physician: Anup John D.P.M. Date of Service: 01/27/25 Procedure(s): XR foot RT min 3V Accession Number(s): [id number] cc: KVNG LINTON ; Anup John D.P.M. The [place] [address] Patient Name: BERENICE SILVA MRN: [facility]:[id number] date: 1945 Sex: F Assigned Patient Location: [facility] Current Patient Location: Accession/Order Number: [id number] Exam Date: 01/27/2025 15:38 Report Date: 01/27/2025 15:41 At the request of: ANUP JOHN DPM Procedure: XR foot RT min 3V 3 views right foot plain film COMPARISON:10/22/2022 HISTORY: Reassessment of hardware. Ulcer bottom of great toe. ACUTE FINDINGS: None DEGENERATIVE CHANGE: Similar articular erosive changes of the phalanges and first metatarsal phalangeal joint. SOFT TISSUE FINDINGS: No subcutaneous air. No radiodense foreign body. JOINT EFFUSION: None POSTOP CHANGES: Stable fusion hardware. Second toe amputation stable. BONE MINERALIZATION: Adequate XR/XR foot RT min 3V IMPRESSION: Stable findings. No hardware failure. Similar erosive changes. No subcutaneous air. Impression dictated by: Lew Fish M.D. 01/27/2025 3:41 PM Dictation Location: [place] [address] Electronically authenticated by: [id number] Y Date: 01/27/2025 15:41 Dictated By: Lew Fish D.O. Signed By: 01/27/25 1543 DD/ 154 TD/TT: Income Tax Auditor: [facility] [employer] Radiology Study observation (narrative) [facility] XR FOOT RT MIN 3VOrdered By: Radiologist Radiology on 01-27-2025 [facility] [employer] Work Phone: CBC (INCLUDES DIFF/PLT)on Basophils (Bld) [#/Vol] 0.053 10*3/uL Normal 0-200 [facility] Comment on above: Performed By: #### 6 015, 4810, 34468 #### [facility] [address], [address] [place] [id number] Granulator Machine Operator: Keagan Holly MD Basophils/100 WBC (Bld) 1.0 % Normal [facility] Comment on above: Performed By: #### 6 712, 5363, 21797 #### [facility] of [address], [address] [place] [address] Granulator Machine Operator: Keagan Holly MD Eosinophils (Bld) [#/Vol] 0.143 10*3/uL Normal 15-500 [facility] Comment on above: Performed By: #### 6 399, 7600, 74684 #### [facility] of [address], [address] [place] [address] Granulator Machine Operator: Keagan Holly MD Eosinophils/100 WBC (Bld) 2.7 % Normal [facility] Comment on above: Performed By: #### 6 399, 7600, 74557 #### [facility] of [address], [address] [place] [address] Granulator Machine Operator: Keagan Holly MD Erythrocyte distribution width (RBC) [Ratio] 11.9 % Normal 11.0-15.0 [facility] Comment on above: Performed By: #### 6 399, 7600, 06505 #### [facility] of [address], [address] [place] [address] Granulator Machine Operator: Keagan Holly MD Hematocrit (Bld) [Volume fraction] 38.1 % Normal 35.0-45.0 [facility] Comment on above: Performed By: #### 6 399, 7600, 23726 #### [facility] of [place] [address] Granulator Machine Operator: Keagan Holly MD Hemoglobin (Bld) [Mass/Vol] 13.1 g/dL Normal 11.7-15.5 [facility] Comment on above: Performed By: #### 6 399, 7600, 73234 #### [facility] of [address], [address] [place] [address] Granulator Machine Operator: Keagan Holly MD Lymphocytes (Bld) [#/Vol] 1.988 10*3/uL Normal 850-3900 [facility] Comment on above: Performed By: #### 6 399, 7600, 83419 #### [facility] of [address], [address] [place] [address] Granulator Machine Operator: Keagan Holly MD Lymphocytes/100 WBC (Bld) 37.5 % Normal [facility] Comment on above: Performed By: #### 6 399, 7600, 28422 #### [facility] [place] [address] Granulator Machine Operator: Keagan Holly MD MCH (RBC) [Entitic mass] 31.3 pg Normal 27.0-33.0 [facility] Comment on above: Performed By: #### 6 399, 7600, 63000 #### [facility] [place] [address] Granulator Machine Operator: Keagan Holly MD MCHC (RBC) [Mass/Vol] 34.4 g/dL Normal 32.0-36.0 [facility] Comment on above: Result Comment: For adults, a slight decrease in the calculated MCHC value (in the range of 30 to 32 g/dL) is most likely not clinically significant; however, it should be interpreted with caution in correlation with other red cell parameters and the patient's clinical condition. Performed By: #### 6 399, 7600, 26133 #### [facility] [place] [address] Granulator Machine Operator: Keagan Holly MD MCV (RBC) [Entitic vol] 91.1 fL Normal 80.0-100.0 [facility] Comment on above: Performed By: #### 6 399, 7600, 61089 #### [facility] [place] [address] Granulator Machine Operator: Keagan Holly MD Monocytes (Bld) [#/Vol] 0.392 10*3/uL Normal 200-950 [facility] Comment on above: Performed By: #### 6 399, 7600, 90155 #### [facility] [place] [address] Granulator Machine Operator: Keagan Holly MD Monocytes/100 WBC (Bld) 7.4 % Normal [facility] Comment on above: Performed By: #### 6 399, 7600, 03552 #### [facility] of [address], [address] [place] [address] Granulator Machine Operator: Keagan Holly MD Neutrophils (Bld) [#/Vol] 2.724 10*3/uL Normal 1728-8770 [facility] Comment on above: Performed By: #### 6 399, 7600, 57871 #### [facility] of [address], [address] [place] [address] Granulator Machine Operator: Keagan Holly MD Neutrophils/100 WBC (Bld) 51.4 % Normal [facility] Comment on above: Performed By: #### 6 399, 7600, 91720 #### [facility] of [place] [address] Granulator Machine Operator: Keagan Holly MD Platelet mean volume (Bld) [Entitic vol] 9.1 fL Normal 7.5-12.5 [facility] Comment on above: Performed By: #### 6 399, 7600, 70026 #### [facility] of [address], [address] [place] [address] Granulator Machine Operator: Keagan Holly MD Platelets (Bld) [#/Vol] 335 10*3/uL Normal 140-400 [facility] Comment on above: Performed By: #### 6 399, 7600, 70237 #### [facility] of [place] [address] Granulator Machine Operator: Keagan Holly MD RBC (Bld) [#/Vol] 4.18 10*6/uL Normal 3.80-5.10 [facility] Comment on above: Performed By: #### 6 399, 7600, 58238 #### [facility] of [place] [address] Granulator Machine Operator: Keagan Holly MD WBC (Bld) [#/Vol] 5.3 10*3/uL Normal 3.8-10.8 [facility] Comment on above: Performed By: #### 6 399, 7600, 77441 #### [facility] of [address], [address] [place] [address] Granulator Machine Operator: Keagan Holly MD [facility] METABOL[facility] 08-04-2024 Albumin [Mass/Vol] 4.4 g/dL Normal 3.6-5.1 [facility] Comment on above: Performed By: #### 6 399, 7600, 43447 #### [facility] of [address], [address] [place] [address] Granulator Machine Operator: Keagan Holly MD Albumin/Globulin [Mass ratio] 1.8 {ratio} Normal 1.0-2.5 [facility] Comment on above: Performed By: #### 6 399, 7600, 12392 #### [facility] of [address], [address] [place] [address] Granulator Machine Operator: Keagan Holly MD ALP [Catalytic activity/Vol] 68 U/L Normal 37-153 [facility] Comment on above: Performed By: #### 6 399, 7600, 14313 #### [facility] of [address], [address] [place] [address] Granulator Machine Operator: Keagan Holly MD ALT [Catalytic activity/Vol] 15 U/L Normal 6-29 [facility] Comment on above: Performed By: #### 6 399, 7600, 37709 #### [facility] of [place] [address] Granulator Machine Operator: Keagan Holly MD AST [Catalytic activity/Vol] 18 U/L Normal 10-35 [facility] Comment on above: Performed By: #### 6 399, 7600, 80943 #### [facility] of [place] [address] Granulator Machine Operator: Keagan Holly MD Bilirubin [Mass/Vol] 0.5 mg/dL Normal 0.2-1.2 [facility] Comment on above: Performed By: #### 6 399, 7600, 11920 #### [facility] of [address], [address] [place] [address] Granulator Machine Operator: Keagan Holly MD BUN/CREATININE RATIO SEE NOTE: Normal 6-22 [facility] Comment on above: Result Comment: Not Reported: BUN and Creatinine are within reference range. Performed By: #### 6 399, 7600, 32675 #### [facility] of [place] [address] Granulator Machine Operator: Keagan Holly MD Calcium [Mass/Vol] 9.5 mg/dL Normal 8.6-10.4 [facility] Comment on above: Performed By: #### 6 399, 7600, 66722 #### [facility] of [place] [address] Granulator Machine Operator: Keagan Holly MD Chloride [Moles/Vol] 100 mmol/L Normal 98-110 [facility] Comment on above: Performed By: #### 6 399, 7600, 01829 #### [facility] of [place] [address] Granulator Machine Operator: Keagan Holly MD CO2 [Moles/Vol] 31 mmol/L Normal 20-32 [facility] Comment on above: Performed By: #### 6 399, 7600, 65315 #### [facility] of [place] [address] Granulator Machine Operator: Keagan Holly MD Creatinine [Mass/Vol] 0.74 mg/dL Normal 0.60-1.00 [facility] Comment on above: Performed By: #### 6 399, 7600, 85062 #### [facility] of [place] [address] Granulator Machine Operator: Keagan Holly MD GFR/1.73 sq M.predicted among non-blacks MDRD (S/P/Bld) [Vol rate/Area] 84 mL/min/{1.73_m2} Normal > OR = 60 [facility] Comment on above: Performed By: #### 6 399, 7600, 34401 #### [facility] of [place] [address] Granulator Machine Operator: Keagan Holly MD Globulin (S) [Mass/Vol] 2.5 g/dL Normal 1.9-3.7 [facility] Comment on above: Performed By: #### 6 399, 7600, 16756 #### [facility] [place] [address] Granulator Machine Operator: Keagan Holly MD Glucose [Mass/Vol] 88 mg/dL Normal 65-99 [facility] Comment on above: Result Comment: Fasting reference interval Performed By: #### 6 399, 7600, 51014 #### [facility] [address], [address] [place] [address] Granulator Machine Operator: Keagan Holly MD Potassium [Moles/Vol] 4.0 mmol/L Normal 3.5-5.3 [facility] Comment on above: Performed By: #### 6 399, 7600, 71242 #### [facility] [place] [address] Granulator Machine Operator: Keagan Holly MD Protein [Mass/Vol] 6.9 g/dL Normal 6.1-8.1 [facility] Comment on above: Performed By: #### 6 399, 7600, 41454 #### [facility] [place] [address] Granulator Machine Operator: Keagan Holly MD Sodium [Moles/Vol] 138 mmol/L Normal 135-146 [facility] Comment on above: Performed By: #### 6 399, 7600, 44773 #### [facility] [place] [address] Granulator Machine Operator: Keagan Holly MD Urea nitrogen [Mass/Vol] 16 mg/dL Normal 7-25 [facility] Comment on above: Performed By: #### 6 399, 7600, 45021 #### [facility] [place] [address] Granulator Machine Operator: Keagan Holly MD LIPID PANEL, [facility] 07-22 Cholesterol [Mass/Vol] 261 mg/dL High <200 [facility] Comment on above: Order Comment: FASTI NG:YES FASTING: YES Performed By: #### 6 399, 7600, 68780 #### [facility] [address], [address] [place] [address] Granulator Machine Operator: Keagan Holly MD Cholesterol in HDL [Mass/Vol] 66 mg/dL Normal > OR = 50 [facility] Comment on above: Order Comment: FASTI NG:YES FASTING: YES Performed By: #### 6 399, 7600, 79024 #### [facility] [address], [address] [place] [address] Granulator Machine Operator: Keagan Holly MD Cholesterol in LDL [Mass/Vol] 161 mg/dL High [facility] Comment on above: Order Comment: FASTI NG:YES FASTING: YES Result Comment: Refe rence range: <100 Desirable range <100 mg/dL for primary prevention; <70 mg/dL for patients with CHD or diabetic patients with > or = 2 CHD risk factors. LDL-C is now calculated using the Anca calculation, which is a validated novel method providing better accuracy than the Friedewald equation in the estimation of LDL-C. Edwin GLASER et al. LUL. 2013;310(19): 4314-8830 (http://education.XillianTV.[employer]/faq/OFK713) Performed By: #### 6 399, 7600, 34337 #### [facility] [address], [address] [place] [address] Granulator Machine Operator: Keagan Holly MD Cholesterol.total/C holesterol in HDL [Mass ratio] 4.0 {ratio} Normal <5.0 [facility] Comment on above: Order Comment: FASTI NG:YES FASTING: YES Performed By: #### 6 399, 7600, 69176 #### [facility] [address], [address] [place] [address] Granulator Machine Operator: Keagan Holly MD NON HDL CHOLESTEROL 195 mg/dL (calc) High <130 [facility] Comment on above: Order Comment: FASTI NG:YES FASTING: YES Result Comment: For patients with diabetes plus 1 major ASCVD risk factor, treating to a non-HDL-C goal of <100 mg/dL (LDL-C of <70 mg/dL) is considered a therapeutic option. Performed By: #### 6 399, 7600, 23431 #### [facility] [address], [address] [place] [address] Granulator Machine Operator: Keagan Holly MD Triglyceride [Mass/Vol] 181 mg/dL High <150 [facility] Comment on above: Order Comment: FASTI NG:YES FASTING: YES Performed By: #### 6 399, 7600, 61758 #### [facility] [address], [address] [place] [address] Granulator Machine Operator: Keagan Holly MD VITAMIN D,25-OH,TOTAL,IAon 0 08-04-2024 VITAMIN D,25-OH,TOTAL,IA 35 ng/mL Normal 30-100 [facility] Comment on above: Result Comment: Rachael min D Status 25-OH Vitamin D: Deficiency: <20 ng/mL Insufficiency: 20 - 29 ng/mL Optimal: > or = 30 ng/mL For 25-OH Vitamin D testing on patients on D2-supplementation and patients for whom quantitation of D2 and D3 fractions is required, the QuestAssureD(TM) 25-OH VIT D, (D2,D3), LC/MS/MS is recommended: order code 24485 (patients >2yrs). See Note 1 Note 1 For additional information, please refer to http://education.Tutor/faq/LJR961 (This link is being provided for informational/ educational purposes only.) Performed By: #### 6 399, 7600, 93126 #### [facility] [address], [address] [place] [address] Granulator Machine Operator: Keagan Holly MD CT COLONOGRAPHY SCREENINGon 01-21-2024 CT COLONOGRAPHY SCREENING [...] presence or absence of which will not ticket dispenser changer of the patient. In addition, digital [...] prior colon studies for comparison. Finalized by Haleigh Curry MD on 01/21/2024 8:17 AM Normal [facility] Cult,Bloodon 10-31-2023 Cult,Blood Specimen Description .BLOOD Special Requests 20ML RAC Culture NO GROWTH 5 DAYS Report Status FINAL 10/31/2023 Normal [facility] Comment on above: Performed By: #### B C #### [facility] [address] [place] [address] Silviculturist: Ayden Regan MD Cult,Blood Specimen Description .BLOOD Special Requests 20ML LFT WRIST Culture NO GROWTH 5 DAYS Report Status FINAL 10/31/2023 Normal [facility] Comment on above: Performed By: #### B C #### [address] [place], [place] [id number] Silviculturist: Ayden Regan MD CBC with Diffon 10-27-2023 Abs. Basophil 0.03 k/uL Normal 0.00-0.20 [facility] Comment on above: Performed By: #### L ACDS #### [address] [place], [facility]83 Silviculturist: Ayden Regan MD Abs.Imm.Granulocyte 0.03 k/uL Normal 0.00-0.30 [facility] Comment on above: Performed By: #### L ACDS #### [address] [place], [facility]83 Silviculturist: Ayden Regan MD Abs.Neutrophil (Seg) 7.25 k/uL Normal 1.50-8.10 [facility] Comment on above: Performed By: #### L ACDS #### [address] [place], [place] [id number] Silviculturist: Ayden Regan MD Basophils/100 WBC (Bld) 0 % Normal 0-2 [facility] Comment on above: Performed By: #### L ACDS #### [facility] [address] [place] [address] Dr. [place], [facility]83 Silviculturist: Ayden Regan MD Eosinophils (Bld) [#/Vol] 0.04 10*3/uL Normal 0.00-0.44 [facility] Comment on above: Performed By: #### L ACDS #### [address] [place] [address] Silviculturist: Ayden Regan MD Eosinophils/100 WBC (Bld) 0 % Low 1-4 [facility] Comment on above: Performed By: #### L ACDS #### [facility] [address] [place] [address] Silviculturist: Ayden Regan MD Erythrocyte distribution width (RBC) [Ratio] 12.5 % Normal 11.8-14.4 [facility] Comment on above: Performed By: #### L ACDS #### [facility] [address] [place] [address] Silviculturist: Ayden Regan MD Hematocrit (Bld) [Volume fraction] 29.2 % Low 36.3-47.1 [facility] Comment on above: Performed By: #### L ACDS #### [address] [place] [address] Silviculturist: Ayden Regan MD Hemoglobin (Bld) [Mass/Vol] 9.7 g/dL Low 11.9-15.1 [facility] Comment on above: Performed By: #### L ACDS #### [address] [place] [address] Silviculturist: Ayden Regan MD Immature granulocytes/100 WBC (Bld) 0 % Normal 0 [facility] Comment on above: Performed By: #### L ACDS #### [facility] [address] [place] [address] Dr[place] [address] Silviculturist: Ayden Regan MD Lymphocytes (Bld) [#/Vol] 1.83 10*3/uL Normal 1.10-3.70 [facility] Comment on above: Performed By: #### L ACDS #### [address] [place] [address] Silviculturist: Ayden Regan MD Lymphocytes/100 WBC (Bld) 18 % Low 24-43 [facility] Comment on above: Performed By: #### L ACDS #### [facility] [address] [place], [place] [id number] Silviculturist: Ayden Regan MD MCH (RBC) [Entitic mass] 30.1 pg Normal 25.2-33.5 [facility] Comment on above: Performed By: #### L ACDS #### [facility] [address] [place] [facility]83 Silviculturist: Ayden Regan MD MCHC (RBC) [Mass/Vol] 33.2 g/dL Normal 28.4-34.8 [facility] Comment on above: Performed By: #### L ACDS #### [address] [place] [address] Silviculturist: Ayden Regan MD MCV (RBC) [Entitic vol] 90.7 fL Normal 82.6-102.9 [facility] Comment on above: Performed By: #### L ACDS #### [address] [place], [facility]83 Silviculturist: Ayden Regan MD Monocytes (Bld) [#/Vol] 1.02 10*3/uL Normal 0.10-1.20 [facility] Comment on above: Performed By: #### L ACDS #### [facility] [address] [place] [address] Silviculturist: Ayden Regan MD Monocytes/100 WBC (Bld) 10 % Normal 3-12 [facility] Comment on above: Performed By: #### L ACDS #### [facility] [address] [place] [address] Silviculturist: Ayden Regan MD Neutrophil (Seg) 71 % High 36-65 [facility] Comment on above: Performed By: #### L ACDS #### [facility] [address] [place] [address] Silviculturist: Ayden Regan MD NRBC Automated 0.0 per 100 WBC Normal 0.0 [facility] Comment on above: Performed By: #### L ACDS #### [facility] [address] [place], [place] [id number] Silviculturist: Ayden Regan MD Platelet mean volume (Bld) [Entitic vol] 8.7 fL Normal 8.1-13.5 [facility] Comment on above: Performed By: #### L ACDS #### [facility] [address] [place], [place] [id number] Silviculturist: Ayden Regan MD Platelets (Bld) [#/Vol] 237 10*3/uL Normal 138-453 [facility] Comment on above: Performed By: #### L ACDS #### [address] [place], [place] [id number] Silviculturist: Ayden Regan MD RBC (Bld) [#/Vol] 3.22 10*6/uL Low 3.95-5.11 [facility] Comment on above: Performed By: #### L ACDS #### [address] [place], [place] [id number] Silviculturist: Ayden Regan MD WBC (Bld) [#/Vol] 10.2 10*3/uL Normal 3.5-11.3 [facility] Comment on above: Performed By: #### L ACDS #### [facility] [address] [place], [place] [id number] Silviculturist: Ayden Regan MD Comp Metabolic Pr/rfx MGon 0 - Albumin [Mass/Vol] 3.1 g/dL Low 3.5-5.2 [facility] Comment on above: Performed By: #### L ACDS #### [facility] [address] [place] [address] Silviculturist: Ayden Regan MD Albumin/Glob Ratio 1.3 Normal 1.0-2.5 [facility] Comment on above: Performed By: #### L ACDS #### [facility] [address] [place], [place] [id number] Silviculturist: Ayden Regan MD Alkaline Phos 80 U/L Normal 35-104 [facility] Comment on above: Performed By: #### L ACDS #### [facility] [address] [place], [place] 2196183 Silviculturist: Ayden Regan MD ALT [Catalytic activity/Vol] 9 U/L Normal 5-33 [facility] Comment on above: Performed By: #### L ACDS #### [facility] [address] [place], [place] 8479383 Silviculturist: Ayden Regan MD Anion gap [Moles/Vol] 8 mmol/L Low 9-17 [facility] Comment on above: Performed By: #### L ACDS #### [facility] [address] [place], [place] 9112183 Silviculturist: Ayden Regan MD AST [Catalytic activity/Vol] 13 U/L Normal <32 [facility] Comment on above: Performed By: #### L ACDS #### [facility] [address] [place], [place] [address] Silviculturist: Ayden Regan MD Bilirubin [Mass/Vol] 0.6 mg/dL Normal 0.3-1.2 [facility] Comment on above: Performed By: #### L ACDS #### [facility] [address] [place], [place] [id number] Silviculturist: Ayden Regan MD BUN/CRE Ratio 16 Normal 9-20 [facility] Comment on above: Performed By: #### L ACDS #### [facility] [address] [place], [place] 47[address]83 Silviculturist: Ayden Regan MD Calcium [Mass/Vol] 8.2 mg/dL Low 8.6-10.4 [facility] Comment on above: Performed By: #### L ACDS #### [facility] [address] [place] [address] Silviculturist: Adyen Regan MD Chloride [Moles/Vol] 106 mmol/L Normal 98-107 [facility] Comment on above: Performed By: #### L ACDS #### [facility] [address] [place], [place] 3099583 Silviculturist: Ayden Regan MD CO2 [Moles/Vol] 26 mmol/L Normal 20-31 [facility] Comment on above: Performed By: #### L ACDS #### [facility] [address] [place] [address] Silviculturist: Ayden Regan MD Creatinine [Mass/Vol] 0.7 mg/dL Normal 0.5-0.9 [facility] Comment on above: Performed By: #### L ACDS #### [facility] [address] [place] [address] Silviculturist: Ayden Regan MD GFR/1.73 sq M.predicted among non-blacks MDRD (S/P/Bld) [Vol rate/Area] mL/min/{1.73_m2} Normal >60 [facility] Comment on above: Result Comment: These results [...] secretion. Performed By: #### L ACDS #### [facility] [address] [place] [address] Silviculturist: Ayden Regan MD Glucose [Mass/Vol] 97 mg/dL Normal 70-99 [facility] Comment on above: Performed By: #### L ACDS #### [facility] [address] [place], [place] 8666183 Silviculturist: Ayden Regan MD Potassium [Moles/Vol] 3.6 mmol/L Low 3.7-5.3 [facility] Comment on above: Performed By: #### L ACDS #### [facility] [address] [place], [place] 1075483 Silviculturist: Ayden Regan MD Protein [Mass/Vol] 5.4 g/dL Low 6.4-8.3 [facility] Comment on above: Performed By: #### L ACDS #### [facility] [address] [place], [place] [id number] Silviculturist: Ayden Regan MD Sodium [Moles/Vol] 140 mmol/L Normal 135-144 [facility] Comment on above: Performed By: #### L ACDS #### [facility] [address] [place] [address] Silviculturist: Ayden Regan MD Urea nitrogen [Mass/Vol] 11 mg/dL Normal 8-23 [facility] Comment on above: Performed By: #### L ACDS #### [facility] [address] [place], [place] 4441483 Silviculturist: Ayden Regan MD Cult,Urineon 10-27-2023 Cult,Urine Specimen Description .URINE,STRAIGHT CATHETER Culture STREPTOCOCCI, BETA HEMOLYTIC GROUP B 10 to 50,000 CFU/ML Report Status FINAL 10/27/2023 Normal [facility] Comment on above: Performed By: #### U RC #### [facility] [address] [place] [address] Silviculturist: Nahum Nixon MD [facility] [address] [place] [address] Silviculturist: Ayden Regan MD Procalcitoninon 04-07-2024 Procalcitonin 0.06 ng/mL Normal 0.00-0.09 [facility] Comment on above: Result Comment: Suspected [...] entered into the Change in Procalcitonin Calculator ([email or web address]-djk-somrnfqkud.[employer]) to determine the patient's Mortality Risk Prognosis In healthy neonates, plasma Procalcitonin (PCT) concentrations increase gradually after , reaching peak values at about 24 hours of age then decrease to normal values below 0.5 ng/mL by 48-72 hours of age. Performed By: #### P RCAL #### [address] [address] Silviculturist: Nahum Nixon MD CBC with Diffon 10-26-2023 Abs. Basophil 0.04 k/uL Normal 0.00-0.20 [facility] Comment on above: Performed By: #### T BRETT MELENDEZ CP #### [facility] [address] [place] [address] [place] [address] Silviculturist: Ayden Regan MD Abs.Imm.Granulocyte 0.04 k/uL Normal 0.00-0.30 [facility] Comment on above: Performed By: #### T BRETT MELENDEZ, CP #### [facility] [address] [place] [address] Dr. [place], [place] [id number] Silviculturist: Ayden Regan MD Abs.Neutrophil (Seg) 9.87 k/uL High 1.50-8.10 [facility] Comment on above: Performed By: #### BRETT ALMANZA, CP #### [facility] [address] [place] [address] [place] [address] Silviculturist: Ayden Regan MD Basophils/100 WBC (Bld) 0 % Normal 0-2 [facility] Comment on above: Performed By: #### BRETT ALMANZA, CP #### [address] [place] [address] Silviculturist: Ayden Regan MD Eosinophils (Bld) [#/Vol] 0.06 10*3/uL Normal 0.00-0.44 [facility] Comment on above: Performed By: #### BRETT ALMANZA, CP #### [address] [place] [id number] Silviculturist: Ayden Regan MD Eosinophils/100 WBC (Bld) 1 % Normal 1-4 [facility] Comment on above: Performed By: #### BRETT ALMANZA, CP #### [address] [place] [address] Silviculturist: Ayden Regan MD Erythrocyte distribution width (RBC) [Ratio] 12.1 % Normal 11.8-14.4 [facility] Comment on above: Performed By: #### BRETT ALMANZA, CP #### [address] [place] [address] Silviculturist: Ayden Regan MD Hematocrit (Bld) [Volume fraction] 37.2 % Normal 36.3-47.1 [facility] Comment on above: Performed By: #### BRETT ALMANZA, CP #### [address] [place] [address] Silviculturist: Ayden Regan MD Hemoglobin (Bld) [Mass/Vol] 12.6 g/dL Normal 11.9-15.1 [facility] Comment on above: Performed By: #### BRETT ALMANZA, CP #### [facility] [address] [place], [place] [address] Silviculturist: Ayden Regan MD Immature granulocytes/100 WBC (Bld) 0 % Normal 0 [facility] Comment on above: Performed By: #### BRETT ALMANZA, CP #### [facility] [address] [place], [place] [address] Silviculturist: Ayden Regan MD Lymphocytes (Bld) [#/Vol] 0.81 10*3/uL Low 1.10-3.70 [facility] Comment on above: Performed By: #### BRETT ALMANZA, CP #### [address] [place], [place] [address] Silviculturist: Ayden Regan MD Lymphocytes/100 WBC (Bld) 7 % Low 24-43 [facility] Comment on above: Performed By: #### BRETT ALMANZA, CP #### [address] [place], [place] [address] Silviculturist: Ayden Regan MD MCH (RBC) [Entitic mass] 30.4 pg Normal 25.2-33.5 [facility] Comment on above: Performed By: #### BRETT ALMANZA, CP #### [address] [place], [place] [address] Silviculturist: Ayden Regan MD MCHC (RBC) [Mass/Vol] 33.9 g/dL Normal 28.4-34.8 [facility] Comment on above: Performed By: #### BRETT ALMANZA, CP #### [address] [place], [facility] Silviculturist: Ayden Regan MD MCV (RBC) [Entitic vol] 89.9 fL Normal 82.6-102.9 [facility] Comment on above: Performed By: #### T BRETT MELENDEZ, CP #### [facility] [address] [place], [place] [id number] Silviculturist: Ayden Regan MD Monocytes (Bld) [#/Vol] 0.89 10*3/uL Normal 0.10-1.20 [facility] Comment on above: Performed By: #### T BRETT MELENDEZ, CP #### [address] [place], [place] 245[address]83 Silviculturist: Ayden Regan MD Monocytes/100 WBC (Bld) 8 % Normal 3-12 [facility] Comment on above: Performed By: #### T BRETT MELENDEZ, CP #### [address] [place], [place] 0845583 Silviculturist: Ayden Regan MD Neutrophil (Seg) 84 % High 36-65 [facility] Comment on above: Performed By: #### BRETT ALMANZA, CP #### [address] [place], [place] 9159483 Silviculturist: Ayden Regan MD NRBC Automated 0.0 per 100 WBC Normal 0.0 [facility] Comment on above: Performed By: #### BRETT ALMANZA, CP #### [address] [place], [place] 6080283 Silviculturist: Ayden Regan MD Platelet mean volume (Bld) [Entitic vol] 8.5 fL Normal 8.1-13.5 [facility] Comment on above: Performed By: #### T BRETT MELENDEZ, CP #### [address] [place] [address] Silviculturist: Ayden Regan MD Platelets (Bld) [#/Vol] 312 10*3/uL Normal 138-453 [facility] Comment on above: Performed By: #### BRETT ALMANZA, CP #### [address] [place], [place] 0[address]1783 Silviculturist: Ayden Regan MD RBC (Bld) [#/Vol] 4.14 10*6/uL Normal 3.95-5.11 [facility] Comment on above: Performed By: #### T BRETT MELENDEZ, CP #### [facility] [address] [place] [address] Silviculturist: Ayden Regan MD WBC (Bld) [#/Vol] 11.7 10*3/uL High 3.5-11.3 [facility] Comment on above: Performed By: #### T BRETT MELENDEZ, CP #### [facility] [address] [place], [place] 4003283 Silviculturist: Ayden Regan MD CT HEAD WO CONTRASTon [...] No acute intracranial findings. Interpreted by: Seven Moreon MD Signed by: Seven Moreno MD 10/26/23 Final result Normal [facility] Comp Metabolic Profon 2023 Albumin [Mass/Vol] 3.9 g/dL Normal 3.5-5.2 [facility] Comment on above: Performed By: #### T BRETT MELENDEZ, CP #### [facility] [address] [place], [place] 5138283 Silviculturist: Ayden Regan MD Albumin/Glob Ratio 1.2 Normal 1.0-2.5 [facility] Comment on above: Performed By: #### T BRETT MELENDEZ, CP #### [facility] [address] [place], [place] 608[address]83 Silviculturist: Ayden Regan MD Alkaline Phos 87 U/L Normal 35-104 [facility] Comment on above: Performed By: #### T BRETT MELENDEZ, CP #### [address] [place], [place] 4742483 Silviculturist: Ayden Regan MD ALT [Catalytic activity/Vol] 12 U/L Normal 5-33 [facility] Comment on above: Performed By: #### T BRETT MELENDEZ, CP #### [facility] [address] [place], [place] 9184683 Silviculturist: Ayden Regan MD Anion gap [Moles/Vol] 9 mmol/L Normal 9-17 [facility] Comment on above: Performed By: #### T BRETT MELENDEZ, CP #### [address] [place], [place] 2201083 Silviculturist: Ayden Regan MD AST [Catalytic activity/Vol] 15 U/L Normal <32 [facility] Comment on above: Performed By: #### T BRETT MELENDEZ, CP #### [facility] [address] [place] [address] Dr[place], [place] 5241583 Silviculturist: Ayden Regan MD Bilirubin [Mass/Vol] 0.4 mg/dL Normal 0.3-1.2 [facility] Comment on above: Performed By: #### T BRETT MELENDEZ, CP #### [facility] [address] [place] [address] Dr[place], [place] 1597083 Silviculturist: Ayden Regan MD BUN/CRE Ratio 16 Normal 9-20 [facility] Comment on above: Performed By: #### BRETT ALMANZA, CP #### [facility] [address] [place], [place] 4671083 Silviculturist: Ayden Regan MD Calcium [Mass/Vol] 9.2 mg/dL Normal 8.6-10.4 [facility] Comment on above: Performed By: #### BRETT ALMANZA, CP #### [facility] [address] [place], [place] 6475483 Silviculturist: Ayden Regan MD Chloride [Moles/Vol] 95 mmol/L Low 98-107 [facility] Comment on above: Performed By: #### BRETT ALMANZA, CP #### [facility] [address] [place], [place] 2289183 Silviculturist: Ayden Regan MD CO2 [Moles/Vol] 26 mmol/L Normal 20-31 [facility] Comment on above: Performed By: #### BRETT ALMANZA, CP #### [facility] [address] [place], [place] 1640783 Silviculturist: Ayden Regan MD Creatinine [Mass/Vol] 0.8 mg/dL Normal 0.5-0.9 [facility] Comment on above: Performed By: #### BRETT ALMANZA, CP #### [facility] [address] [place] [address] Silviculturist: Ayden Regan MD GFR/1.73 sq M.predicted among non-blacks MDRD (S/P/Bld) [Vol rate/Area] 77 mL/min/{1.73_m2} Normal >60 [facility] Comment on above: Result Comment: These results [...] By: #### T BRETT MELENDEZ, CP #### [facility] [address] [place], [place] 8[address]1383 Silviculturist: Ayden Regan MD Glucose [Mass/Vol] 119 mg/dL High 70-99 [facility] Comment on above: Performed By: #### T BRETT MELENDEZ, CP #### [facility] [address] [place], [place] 9687083 Silviculturist: Ayden Regan MD Potassium [Moles/Vol] 3.8 mmol/L Normal 3.7-5.3 [facility] Comment on above: Performed By: #### BRETT ALMANZA, CP #### [facility] [address] [place] [address] [place] [address] Silviculturist: Ayden Regan MD Protein [Mass/Vol] 7.2 g/dL Normal 6.4-8.3 [facility] Comment on above: Performed By: #### T BRETT MELENDEZ, CP #### [facility] [address] [place] [address] Dr[place], [place] [id number] Silviculturist: Ayden Regan MD Sodium [Moles/Vol] 130 mmol/L Low 135-144 [facility] Comment on above: Performed By: #### T BRETT MELENDEZ, CP #### [facility] [address] [place] [address] Silviculturist: Ayden Regan MD Urea nitrogen [Mass/Vol] 13 mg/dL Normal 8-23 [facility] Comment on above: Performed By: #### BRETT ALMANZA, CP #### [facility] [address] [place], [place] [phone] Silviculturist: Ayden Regan MD Lactate, Sepsison 10-26-2023 Lactic Acid, Sepsis 1.0 mmol/L Normal 0.5-1.9 [facility] Comment on above: Performed By: #### L ACDS #### [facility] [address] [place] [address] Silviculturist: yAden Regan MD Lactic Acid, Sepsis 1.6 mmol/L Normal 0.5-1.9 [facility] Comment on above: Performed By: #### L ACDS #### [facility] [address] [place] [address] Silviculturist: Ayden Regan MD Troponinon 10-26-2023 Troponin, High Sens 12 ng/L Normal 0-14 [facility] Comment on above: Result Comment: High Sensitivity Troponin values cannot be compared with other Troponin methodologies. Performed By: #### L ACDS #### [facility] [address] [place] [address] Dr[place], [place] 4644583 Silviculturist: Ayden Regan MD Troponin, High Sens 12 ng/L Normal 0-14 [facility] Comment on above: Result Comment: High Sensitivity Troponin values cannot be compared with other Troponin methodologies. Performed By: #### T NORA CDP, CP #### [address] [place], [place] 9459883 Silviculturist: Ayden Regan MD Urinalysis w/ Microon 2023 Bilirubin, SemiQt,Ur Negative Normal NEG [facility] Comment on above: Performed By: #### L ACDS #### [facility] [address] [place] [address] Dr[place], [place] [phone] Silviculturist: Ayden Regan MD Blood, Urine Negative Normal NEG [facility] Comment on above: Performed By: #### L ACDS #### [facility] [address] [place] [address] Dr[place], [place] [phone] Silviculturist: Ayden Regan MD Clarity (U) Clear Normal CLEAR [facility] Comment on above: Performed By: #### L ACDS #### [facility] [address] [place], [place] 4684983 Silviculturist: Ayden Regan MD Color (U) Yellow Normal YEL [facility] Comment on above: Performed By: #### L ACDS #### [facility] [address] [place], [place] [id number] Silviculturist: Ayden Regan MD Epithelial cells LM Ql (Urine sed) 0 TO 2 Normal 0-25 [facility] Comment on above: Performed By: #### L ACDS #### [facility] [address] [place] [address] Dr[place], [place] [phone] Silviculturist: Ayden Regan MD Glucose Ql (U) Negative Normal NEG [facility] Comment on above: Performed By: #### L ACDS #### [facility] [address] [place] [address] Dr[place], [place] [phone] Silviculturist: Ayden Regan MD Ketones Ql (U) Negative Normal NEG [facility] Comment on above: Performed By: #### L ACDS #### [address] [place], [place] 2945283 Silviculturist: Ayden Regan MD Leukocyte esterase Test strip Ql (U) Negative Normal NEG [facility] Comment on above: Performed By: #### L ACDS #### [facility] [address] [place] [address] Dr[place], [place] [phone] Silviculturist: Ayden Regan MD Nitrite,Ur Negative Normal NEG [facility] Comment on above: Performed By: #### L ACDS #### [facility] [address] [place] [address] [place] [address] Silviculturist: Ayden Regan MD PH,Ur 6.5 Normal 5.0-9.0 [facility] Comment on above: Performed By: #### L ACDS #### [facility] [address] [place] [address] [place] [address] Silviculturist: Ayden Regan MD Protein Ql (U) Negative Normal NEG [facility] Comment on above: Performed By: #### L ACDS #### [facility] [address] [place] [address] [place], [place] [phone] Silviculturist: Ayden Regan MD Spec. [place],Ur 1.010 Normal 1.010-1.020 [facility] Comment on above: Performed By: #### L ACDS #### [facility] [address] [place] [address] [place] [address] Silviculturist: Ayden Regan MD Urine RBC's None Normal 0-2 [facility] Comment on above: Performed By: #### L ACDS #### [address] [place] [address] Silviculturist: Ayden Regan MD Urine WBC's None Normal 0-5 [facility] Comment on above: Performed By: #### L ACDS #### [facility] [address] [place] [address] Dr. [place] [phone] Silviculturist: Ayden Regan MD Urobilinogen,Ur Normal Normal 0.0-1.0 [facility] Comment on above: Performed By: #### L ACDS #### [facility] [address] [place] [address] Dr[place] [phone] Silviculturist: Ayden Regan MD XR CHEST PORTABLEon 10-26-19 24 XR CHEST PORTABLE EXAMINATION: ONE XRAY VIEW [...] Ayden Siegel MD 10/26/23 Final result Normal [facility] ACID FAST SMEAR AND CXon Acid Fast Culture Negative Normal [facility] Comment on above: Result Comment: No a broderick fast bacilli isolated after 6 weeks. Performed By: #### A FB #### [facility] [address] [place] [address] Dr. Shari Allen Acid Fast Smear Negative Normal [facility] Comment on above: Performed By: #### A FB #### [facility] [address] [place] [address] Dr. Shari Allen [employer] Specimen Processing Concentration [facility] Comment on above: Performed By: #### A FB #### [facility] [address] [place] [address] Dr. Shari Allen FUNGAL CULTUREon 2022 Fungus (Mycology) Culture Final report [facility] Comment on above: Performed By: #### C XFUN #### [facility] [address] [place] [address] Dr. Shari Allen Fungus Stain Final report Normal [facility] Comment on above: Performed By: #### C XFUN #### [facility] [address] [place] [address] Dr. Shari Allen Result 1 Comment [facility] Comment on above: Result Comment: CHINO/ Calcofluor preparation: no fungus observed. Performed By: #### C XFUN #### [facility] [address] [place] [address] Dr. Shari Allen Result Comment: No y east or mold isolated after 4 weeks. CULTURE ANAEROBICon 10-23-19 CULTURE ANAEROBIC Culture Observations : NO GROWTH OF ANAEROBES AT 72 HOURS. Normal [facility] Comment on above: Performed By: #### C XFUN #### [facility] [address] [place] [address] Dr. Shari Allen CULTURE OTHERon 10-22-2022 CULTURE OTHER Culture Observations : Light growth of NORMAL SKIN MARTHA. Culture Observations: NO GROWTH OF ANAEROBES AT 72 HOURS. Normal [facility] Comment on above: Performed By: #### C XFUN #### [facility] [address] [address] [address] Shari YEPEZ STAINon 10-22-2022 COMMENTS NO ORGANISMS OBSERVED Normal [facility] Comment on above: Performed By: #### G STAIN #### [facility] [address] [place] [address] [address] Shari Allen DIPHTHEROIDS Normal [facility] Comment on above: Performed By: #### G STAIN #### [facility] [address] [place] [address] Dr. Shari Allen EPITHELIALS [facility] Comment on above: Performed By: #### G STAIN #### [facility] [address] [place] [address] Dr. Shari Allen FUNGAL ELEMENTS Normal [facility] Comment on above: Performed By: #### G STAIN #### [facility] [address] [place] [address] Dr. Shari YEPEZ NEG BACILLI [facility] Comment on above: Performed By: #### G STAIN #### [facility] [address] [place] [address] Dr. Shari YEPEZ NEG DIPPLOCOCCI [facility] Comment on above: Performed By: #### G STAIN #### [facility] [address] [place] [address] Dr. Shari YEPEZ POS BACILLI [facility] Comment on above: Performed By: #### G STAIN #### [facility] [address] [place] [address] Dr. Shari YEPEZ POSITIVE COCCI Normal [facility] Comment on above: Performed By: #### G STAIN #### [facility] [address] [place] [address] [address] Shari Allen GRAM STAIN SOURCE Rt 2nd Toe Normal [facility] Comment on above: Performed By: #### G STAIN #### [facility] [address] [place] [address] [address] Shari Allen GS_DIPTH [facility] Comment on above: Performed By: #### G STAIN #### [facility] [address] [place] [address] [address] Shari Allen WBC RARE Normal [facility] Comment on above: Performed By: #### G STAIN #### [facility] [address] [place] [address] [address] Shari Allen POINT OF CARE GLUCOSEon 04-0 Glucose [Mass/Vol] 109 mg/dL Critically high 74-106 [facility] Comment on above: Performed By: #### P OCGLUC #### [facility] [address] [place] [address] [address] Shari Allen Glucose [Mass/Vol] 89 mg/dL Normal 74-106 [facility] Comment on above: Performed By: #### P OCGLUC #### [facility] [address] [place] [address] Dr. Shari lAlen PROF CHEM 8 (BAS METB)on Anion gap [Moles/Vol] 12.2 mmol/L Normal [facility] Comment on above: Performed By: #### B MP #### [facility] [address] [address] [address] Shari Allen Calcium [Mass/Vol] 9.3 mg/dL Normal 8.5-10.1 [facility] Comment on above: Performed By: #### B MP #### [facility] [address] [address] [address] Shari Allen Chloride [Moles/Vol] 104 mmol/L Normal 98-107 [facility] Comment on above: Performed By: #### B MP #### [facility] [address] [address] [address] Shari Allen CO2 [Moles/Vol] 28.5 mmol/L Normal 21.0-32.0 [facility] Comment on above: Performed By: #### B MP #### [facility] [address] [place] [address] Dr. Shari Allen Creatinine [Mass/Vol] 0.83 mg/dL Normal 0.55-1.02 [facility] Comment on above: Performed By: #### B MP #### [facility] [address] [address] [address] Shari Allen EGFR-AF IVORIAN >60 Normal >=60 [facility] Comment on above: Performed By: #### B MP #### [facility] [address] [address] [address] Shari Allen EGFR-NON AF IVORIAN >60 Normal >=60 [facility] Comment on above: Performed By: #### B MP #### [facility] [address] [address] [address] Shari Allen Glucose [Mass/Vol] 89 mg/dL Normal 74-106 [facility] Comment on above: Performed By: #### B MP #### [facility] [address] [address] [address] Shari Allen Potassium [Moles/Vol] 3.7 mmol/L Normal 3.5-5.1 [facility] Comment on above: Performed By: #### B MP #### [facility] [address] [address] [address] Shari Allen Sodium [Moles/Vol] 141 mmol/L Normal 136-145 [facility] Comment on above: Performed By: #### B MP #### [facility] [address] [address] [address] Shari Allen Urea nitrogen [Mass/Vol] 18.0 mg/dL Normal 7.0-18.0 [facility] Comment on above: Performed By: #### B MP #### [facility] [address] [address] [address] Shari Allen Urea nitrogen/Creatinine [Mass ratio] 21.7 mg/mg Normal [facility] Comment on above: Performed By: #### B MP #### [facility] [address] [address] [address] Shari Allen POINT OF CARE GLUCOSEon 102 0-2021 Glucose [Mass/Vol] 86 mg/dL Normal 74-106 [facility] Comment on above: Performed By: #### P OCGLUC #### [facility] [address] [address] [address] Shari Allen Glucose [Mass/Vol] 95 mg/dL Normal 74-106 [facility] Comment on above: Performed By: #### P OCGLUC #### [facility] [address] [place] [address] Dr. Shari Allen CBC AUTO DIFFon 05-07-2022 BASO # 0.0 103/ul Normal 0.0-0.1 [facility] Comment on above: Performed By: #### C BC #### [facility] [address] [place] [address] Dr. Shari Allen Basophils/100 WBC (Bld) 0.5 % Normal 0.2-2.0 [facility] Comment on above: Performed By: #### C BC #### [facility] [address] [place] [address] Dr. Shari Allen EO # 0.2 103/ul Normal 0.0-0.7 [facility] Comment on above: Performed By: #### C BC #### [facility] [address] [place] [address] Dr. Shari Allen Eosinophils/100 WBC (Bld) 2.9 % Normal 0.9-7.0 [facility] Comment on above: Performed By: #### C BC #### [facility] [address] [place] [address] Dr. Shari Allen Erythrocyte distribution width (RBC) [Ratio] 12.6 % Normal 11.0-15.0 [facility] Comment on above: Performed By: #### C BC #### [facility] [address] [place] [address] Dr. Shari Allen Hematocrit (Bld) [Volume fraction] 38.2 % Normal 36.0-48.0 [facility] Comment on above: Performed By: #### C BC #### [facility] [address] [place] [address] Dr. Shari Allen Hemoglobin (Bld) [Mass/Vol] 12.4 g/dL Normal 12.0-16.0 [facility] Comment on above: Performed By: #### C BC #### [facility] [address] [place] [address] Dr. Shari Allen IG # 0.01 10e3/ul Normal 0.00-0.03 [facility] Comment on above: Performed By: #### C BC #### [facility] [address] [place] [address] Dr. Shari Allen IG % 0.2 % Normal 0.0-0.5 [facility] Comment on above: Performed By: #### C BC #### [facility] [address] [place] [address] Dr. Shari Allen LYMPH # 2.0 103/ul Normal 1.2-3.8 [facility] Comment on above: Performed By: #### C BC #### [facility] [address] [place] [address] Dr. Shari Allen Lymphocytes/100 WBC (Bld) 31.7 % Normal 20.5-60.0 [facility] Comment on above: Performed By: #### C BC #### [facility] [address] [place] [address] Dr. Shari Allen MANUAL DIFF REQ NO Normal [facility] Comment on above: Performed By: #### C BC #### [facility] [address] [place] [address] Dr. Shari Allen MCH (RBC) [Entitic mass] 30.7 pg Normal 26.7-34.0 [facility] Comment on above: Performed By: #### C BC #### [facility] [address] [place] [address] Dr. Shari Allen MCHC (RBC) [Mass/Vol] 32.5 g/dL Normal 29.9-35.2 [facility] Comment on above: Performed By: #### C BC #### [facility] [address] [place] [address] Dr. Shari Allen MCV (RBC) [Entitic vol] 94.6 fL Normal 81.0-99.0 [facility] Comment on above: Performed By: #### C BC #### [facility] [address] [address] [address] Shari Allen MONO # 0.5 103/ul Normal 0.3-0.8 [facility] Comment on above: Performed By: #### C BC #### [facility] [address] [place] [address] Dr. Shari Allen Monocytes/100 WBC (Bld) 8.6 % Normal 1.7-12.0 [facility] Comment on above: Performed By: #### C BC #### [facility] [address] [place] [address] Dr. Shari Allen NEUT # 3.5 103/ul Normal 1.4-6.5 [facility] Comment on above: Performed By: #### C BC #### [facility] [address] [place] [address] Dr. Shari Allen Neutrophils/100 WBC (Bld) 56.1 % Normal 43.0-75.0 [facility] Comment on above: Performed By: #### C BC #### [facility] [address] [place] [address] Dr. Shari Allen Platelet mean volume (Bld) [Entitic vol] 8.5 fL Critically low 9.5-13.5 [facility] Comment on above: Performed By: #### C BC #### [facility] [address] [place] [address] Dr. Shari Allen PLT 304 103/ul Normal 150-450 [facility] Comment on above: Performed By: #### C BC #### [facility] [address] [place] [address] Dr. Shari Allen RBC 4.04 106/ul Critically low 4.20-5.40 [facility] Comment on above: Performed By: #### C BC #### [facility] [address] [place] [address] Dr. Shari Allen WBC 6.2 103/ul Normal 4.0-11.0 [facility] Comment on above: Performed By: #### C BC #### [facility] [address] [place] [address] Dr. Shari Allen Covid-19 PCR (CVDTBH)on 04-21 SARS-CoV-2 (COVID-19) RNA LEANN+probe Ql (Unsp spec) Not detected Normal NOT DETECTED [facility] Comment on above: Result Comment: This test is not yet approved or cleared by the [place] FDA. When there are no FDA-approved or cleared tests available, and other criteria are met, FDA can make tests available under an emergency access mechanism called an Emergency Use Authorization (EUA). The EUA for this test is supported by the [place] of Health and Human Service's (HHS's) declaration [...] SARS-CoV-2. Performed By: #### C XFUN #### [facility] [address] [place] [address] Dr. Shari Allen PROF CHEM 8 (BAS METB)on Anion gap [Moles/Vol] 11.1 mmol/L Normal [facility] Comment on above: Performed By: #### B MP #### [facility] [address] [place] [address] Dr. Shari Allen Calcium [Mass/Vol] 9.0 mg/dL Normal 8.5-10.1 [facility] Comment on above: Performed By: #### B MP #### [facility] [address] [place] [address] Dr. Shari Allen Chloride [Moles/Vol] 104 mmol/L Normal 98-107 [facility] Comment on above: Performed By: #### B MP #### [facility] [address] [place] [address] Dr. Shari Allen CO2 [Moles/Vol] 29.7 mmol/L Normal 21.0-32.0 [facility] Comment on above: Performed By: #### B MP #### [facility] [address] [address] [address] Shari Allen Creatinine [Mass/Vol] 0.80 mg/dL Normal 0.55-1.02 [facility] Comment on above: Performed By: #### B MP #### [facility] [address] [address] [address] Shari Allen EGFR-AF IVORIAN >60 Normal >=60 [facility] Comment on above: Performed By: #### B MP #### [facility] [address] [address] [address] Shari Allen EGFR-NON AF IVORIAN >60 Normal >=60 [facility] Comment on above: Performed By: #### B MP #### [facility] [address] [address] [address] Shari Allen Glucose [Mass/Vol] 87 mg/dL Normal 74-106 [facility] Comment on above: Performed By: #### B MP #### [facility] [address] [address] [address] Shari Allen Potassium [Moles/Vol] 3.8 mmol/L Normal 3.5-5.1 [facility] Comment on above: Performed By: #### B MP #### [facility] [address] [address] [address] Shari Allen Sodium [Moles/Vol] 141 mmol/L Normal 136-145 [facility] Comment on above: Performed By: #### B MP #### [facility] [address] [address] [address] Shari Allen Urea nitrogen [Mass/Vol] 14.0 mg/dL Normal 7.0-18.0 [facility] Comment on above: Performed By: #### B MP #### [facility] [address] [address] [address] Shari Allen Urea nitrogen/Creatinine [Mass ratio] 17.5 mg/mg Normal [facility] Comment on above: Performed By: #### B MP #### [facility] [address] [address] [address] Shari Allen Vital Signs Date Time Vital Sign Value Performing Clinician Fox romero 02-23-2025 [id number] Body height 180.3 cm Nicky Hemmer PA Work Phone: [facility] 02-23-2025 10:11-0400 Body mass index (BMI) [Ratio] 20.33 kg/m2 Nicky Hemmer PA Work Phone: [facility] 02-23-2025 10:11-0400 Body weight 66.13 kg Nicky Hemmer PA Work Phone: [facility] 02-23-2025 10:11-0400 Diastolic blood pressure 82 mm[Hg] Nicky Hemmer PA Work Phone: [facility] 02-23-2025 10:11-0400 Heart rate 71 /min Nicky Hemmer PA Work Phone: [facility] 02-23-2025 10:11-0400 Respiratory rate 16 /min Nicky Hemmer PA Work Phone: [facility] 02-23-2025 10:11-0400 SaO2% (BldA) [Mass fraction] 96 % Nicky Hemmer PA Work Phone: [facility] 02-23-2025 10:11-0400 Systolic blood pressure 136 mm[Hg] Nicky Hemmer PA Work Phone: [facility] 11-11-2024 09:29-0400 Body height 180.3 cm Tsering Starr [employer] Work Phone: [facility] 11-11-2024 09:29-0400 Body mass index (BMI) [Ratio] 20.73 kg/m2 Tsering Starr [employer] Work Phone: [facility] 11-11-2024 09:29-0400 Body weight 67.41 kg Tsering Starr [employer] Work Phone: [facility] 11-11-2024 09:29-0400 Diastolic blood pressure 82 mm[Hg] Tsering Starr [employer] Work Phone: [facility] 11-11-2024 09:29-0400 Heart rate 64 /min Tsering Starr [employer] Work Phone: [facility] 11-11-2024 09:29-0400 Respiratory rate 16 /min Tsering Repton [employer] Work Phone: [facility] 11-11-2024 09:29-0400 SaO2% (BldA) [Mass fraction] 95 % Tsering Fletchervely [employer] Work Phone: [facility] 11-11-2024 09:29-0400 Systolic blood pressure 142 mm[Hg] Tsering Starr [employer] Work Phone: [facility] 07-30-2024 09:10-0500 Body height 180.3 cm Nicky Hemmer PA Work Phone: [facility] 07-30-2024 09:10-0500 Body mass index (BMI) [Ratio] 19.67 kg/m2 Nicky Hemmer PA Work Phone: [facility] 07-30-2024 09:10-0500 Body weight 63.96 kg Nicky Hemmer PA Work Phone: [facility] 07-30-2024 09:10-0500 Diastolic blood pressure 76 mm[Hg] Nicky Hemmer PA Work Phone: [facility] 07-30-2024 09:10-0500 Heart rate 64 /min Nicky Hemmer PA Work Phone: [facility] 07-30-2024 09:10-0500 Respiratory rate 16 /min Nicky Hemmer PA Work Phone: [facility] 07-30-2024 09:10-0500 SaO2% (BldA) [Mass fraction] 99 % Nicky Hemmer PA Work Phone: [facility] 07-30-2024 09:10-0500 Systolic blood pressure 118 mm[Hg] Nicky Hemmer PA Work Phone: [facility] 05-04-2024 15:10-0400 Body height 180.3 cm Kvng Linton MD Work Phone: [facility] 05-04-2024 15:10-0400 Body mass index (BMI) [Ratio] 19.25 kg/m2 Kvng Linton MD Work Phone: [facility] 05-04-2024 15:10-0400 Body weight 62.6 kg Kvng Linton MD Work Phone: [facility] 05-04-2024 15:10-0400 Diastolic blood pressure 74 mm[Hg] Kvng Linton MD Work Phone: [facility] 05-04-2024 15:10-0400 Heart rate 77 /min Kvng Linton MD Work Phone: [facility] 05-04-2024 15:10-0400 SaO2% (BldA) [Mass fraction] 100 % Kvng Linton MD Work Phone: [facility] 05-04-2024 15:10-0400 Systolic blood pressure 128 mm[Hg] Kvng Linton MD Work Phone: [facility] 09-04-2023 11:26-0500 Body height 180.3 cm Kvng Linton MD Work Phone: [facility] 09-04-2023 11:26-0500 Body mass index (BMI) [Ratio] 19.8 kg/m2 Kvng Linton MD Work Phone: [facility] 09-04-2023 11:26-0500 Body weight 64.41 kg Kvng Linton MD Work Phone: [facility] 09-04-2023 11:26-0500 Diastolic blood pressure 62 mm[Hg] Kvng Linton MD Work Phone: [facility] 09-04-2023 11:26-0500 Heart rate 61 /min Kvng Linton MD Work Phone: [facility] 09-04-2023 11:26-0500 SaO2% (BldA) [Mass fraction] 99 % Kvng Linton MD Work Phone: [facility] 09-04-2023 11:26-0500 Systolic blood pressure 106 mm[Hg] Kvng Linton MD Work Phone: [facility] Healthcare Encounters Encounter Date Encounter Type Care Provider Facility Start: 03-02-2025 End: 03-02-2025 Patient encounter procedure Katlin Romero MD Work Phone: [facility] Comment on above: Epidermal inclusion cyst (Primary Dx); Pain Start: 03-02-2025 End: 03-02-2025 ambulatory KATLIN ROMERO Not Available Start: 03-02-2025 End: 03-02-2025 Bamboo flowsheet Katlin Romero MD Work Phone: [facility] Start: 03-02-2025 End: 03-02-2025 Bamboo flowsheet Katlin Romero MD Work Phone: [facility] Start: 02-23-2025 End: 02-23-2025 Bamboo flowsheet Nicky Riddle PA Work Phone: [facility] Start: 02-23-2025 End: 02-23-2025 Bamboo flowsheet Nicky TURNER Work Phone: [facility] Start: 02-23-2025 End: 02-23-2025 Patient encounter procedure Nicky TURNER Work Phone: [facility] Comment on above: Medicare annual [facility] visit, subsequent (Primary Dx); ACP (advance care planning); Hereditary motor and sensory neuropathy; Inflammatory and toxic neuropathy (HCC); Lumbar neuritis; Neural foraminal stenosis of lumbar spine; Neurogenic pain; Osteoarthritis of spine with radiculopathy, lumbar region; Other chronic pain; Restless legs syndrome (RLS); Essential (primary) hypertension ; Racing heart beat; Transient ischemic attack; Chronic idiopathic constipation; Pharyngoesophageal dysphagia; Atrophy of nail; Cervical paraspinal muscle spasm; Charcot's joint, right ankle and foot; Equinus contracture of right ankle; Glenohumeral arthritis; Primary osteoarthritis, unspecified site; Impingement syndrome of right shoulder; Degeneration of intervertebral disc of lumbar region with discogenic back pain; Lumbar paraspinal muscle spasm; Atrophy of muscle of multiple sites; Osteopenia of multiple sites; Rheumatoid factor positive; Other hammer toe(s) (acquired), right foot; Polyarthritis; Localized, primary osteoarthritis of ankle or foot, unspecified laterality; Primary osteoarthritis of right foot; Primary osteoarthritis, right shoulder; Lumbar spondylosis; Vitamin D deficiency; Abnormal blood chemistry; Anxiety; Decreased estrogen level; Disorder of sacrum; Dyslipidemia ; Edema, unspecified type; History of sepsis; Hyperlipoproteinemia ; Laryngopharyngeal reflux; Chronic left-sided low back pain with left-sided sciatica; Left sided sciatica Start: 02-23-2025 End: 02-23-2025 ambulatory NICKY RIDDLE Not Available Start: 01-27-2025 End: 01-27-2025 Clinisync Result Encounter Generic External Data Provider [facility] External Department Unsolicited Start: 01-27-2025 End: 01-27-2025 Clinisync Result Encounter Generic External Data Provider [facility] External Department Unsolicited Start: 12-30-2024 End: 12-30-2024 Bamboo flowsheet Gabrielaetta Gilman PA Work Phone: [facility] Start: 12-30-2024 End: 12-30-2024 Bamboo flowsheet Gabriela L Charlotte PA Work Phone: [facility] Start: 12-30-2024 End: 12-30-2024 Office outpatient new 30 minutes Gabriela Gilman PA Work Phone: [facility] Comment on above: Epidermal inclusion cyst (Primary Dx); Localized tenderness Start: 12-30-2024 End: 12-30-2024 ambulatory GABRIELA GILMAN Not Available Start: 11-11-2024 End: 11-11-2024 Bamboo flowsheet Tsering Starr [employer] Work Phone: [facility] Start: 11-11-2024 End: 11-11-2024 Bamboo flowsheet Tsering Starr [employer] Work Phone: [facility] Start: 11-11-2024 End: 11-11-2024 Office outpatient visit 25 minutes Tsering Starr [employer] Work Phone: [facility] Comment on above: Essential (primary) hypertension (CMS/HCC) (Primary Dx); Rheumatoid arthritis, unspecified; Infected sebaceous gland Start: 11-11-2024 End: 11-11-2024 ambulatory TSERING STARR Not Available Start: 09-18-2024 End: 09-18-2024 Refill Kvng Linton MD Work Phone: [facility] Comment on above: Primary osteoarthrit is, unspecified site; Inflammatory and toxic neuropathy (CMS/HCC); Neurogenic pain Start: 08-25-2024 End: 08-31-2024 Telephone encounter Nicky Riddle PA Work Phone: [facility] Start: 07-30-2024 End: 07-30-2024 Bamboo flowsheet Nicky Riddle PA Work Phone: [facility] Start: 07-30-2024 End: 07-30-2024 Bamboo flowsheet Nicky Riddle PA Work Phone: [facility] Start: 07-30-2024 End: 07-30-2024 Office outpatient visit 25 minutes Nicky Riddle PA Work Phone: [facility] Comment on above: Essential (primary) hypertension (CMS/HCC) (Primary Dx); Restless legs syndrome (RLS); History of sepsis; Burning sensation; Vitamin D deficiency; Snoring; Apneic episode Start: 07-30-2024 End: 07-30-2024 ambulatory NICKY RIDDLE Not Available Start: 06-30-2024 End: 07-01-2024 Refill Kvng Linton MD Work Phone: [facility] Comment on above: Primary osteoarthrit is, unspecified site Start: 05-08-2024 End: 05-08-2024 Refill Triny Coker LPN [facility] Comment on above: Primary osteoarthrit is, unspecified site Start: 05-04-2024 End: 05-04-2024 Office outpatient visit 15 minutes Kvng Linton MD Work Phone: [facility] Comment on above: Follicular cyst of s kin and subcutaneous tissue (Primary Dx); Carbuncle and furuncle of trunk; Essential hypertension (CMS/HCC) Start: 05-04-2024 End: 05-04-2024 ambulatory KVNG LINTON Not Available Start: 05-04-2024 End: 05-04-2024 Bamboo flowsheet Kvng Linton MD Work Phone: [facility] Start: 05-04-2024 End: 05-04-2024 Bamboo flowsheet Kvng Linton MD Work Phone: [facility] Start: 04-06-2024 End: 04-06-2024 Telephone encounter Kvng Linton MD Work Phone: [facility] Start: 03-14-2024 End: 03-14-2024 Evaluation and management of inpatient BRITTANY DEGROOT [facility] Start: 03-13-2024 End: 03-14-2024 Evaluation and management of inpatient [facility] Start: 03-13-2024 End: 03-13-2024 Evaluation and management of inpatient [facility] Start: 03-05-2024 End: 03-05-2024 ambulatory KVNG LINTON [facility] Start: 02-25-2024 End: 02-25-2024 ambulatory [facility] Start: 02-12-2024 End: 02-12-2024 ambulatory [facility] Start: 01-16-2024 End: 01-16-2024 ambulatory [facility] Start: 12-20-2023 End: 12-20-2023 Evaluation and management of inpatient AYDEN LAN [facility] Start: 12-19-2023 End: 12-20-2023 Evaluation and management of inpatient [facility] Start: 11-28-2023 End: 11-28-2023 ambulatory JESUS BINGHAM [facility] Start: 10-26-2023 End: 10-27-2023 Evaluation and management of inpatient CHRISTOPHER D [facility] Start: 09-05-2023 ambulatory Facility:[facility] Start: 09-04-2023 Bamboo flowsheet Kvng jones MD Work Phone: [facility] Start: 09-04-2023 Bamsusano flowsheet Kvng jones MD Work Phone: [facility] Start: 09-04-2023 End: 09-04-2023 Transitional care manage srvc 14 day discharge Kvng Linton MD Work Phone: [facility] Comment on above: TIA (transient ische gilberto attack) (Primary Dx); Urinary frequency; Dyslipidemia (CMS/HCC); Essential hypertension (CMS/HCC) Start: 11-13-2022 End: 11-14-[address] KVNG LINTON Facility:[facility] Start: 11-05-2022 End: 11-06-[address] KVNG LINTON Facility:[facility] Start: 10-22-2022 End: 10-22-[address] KVNG LINTON Facility:[facility] Start: 10-19-2022 Encounter for preprocedural cardiovascular examination [facility] Start: 10-19-2022 Encounter for preprocedural laboratory examination [facility] Start: 10-16-2022 End: 10-17-[address] KVNG [...] Facility:[facility] Start: 06-01-2022 End: 06-02-2022 ambulatory ANUP JOHN Facility:[facility] Start: 05-25-2022 End: 05-26-2022 ambulatory PETER D HIGHLANDER Facility:[facility] Start: 05-18-2022 End: 05-19-2022 ambulatory PETER D HIGHLANDER Facility:[facility] Start: 05-10-2022 End: 05-10-2022 ambulatory ANUP D HIGHLANDER Facility:[facility] Start: 05-07-2022 End: 05-08-2022 ambulatory ANUP D HIGHLANDER Facility:[facility] Start: 05-02-2022 End: 05-03-2022 ambulatory PETER D HIGHLANDER Facility:[facility] Start: 04-30-2022 End: 05-01-2022 ambulatory ANUP D HIGHLANDER Facility:[facility] Start: 03-23-2022 End: 03-24-2022 ambulatory ANUP D HIGHLANDER Facility:[facility] Start: 03-16-2022 End: 03-17-2022 ambulatory ANUP D HIGHLANDER Facility:[facility] Start: 03-02-2022 End: 03-03-2022 ambulatory ANUP JOHN Facility:[facility] Start: 02-23-2022 End: 02-24-2022 ambulatory ANUP JOHN Facility:[facility] Start: 01-26-2022 End: 01-27-2022 ambulatory ANUP JOHN Facility:[facility] Start: 01-18-2022 End: 01-19-2022 ambulatory ANUP JOHN Facility:[facility] Start: 01-11-2022 End: 01-12-2022 ambulatory ANUP JOHN Facility:[facility] Start: 01-04-2022 End: 01-04-[address] KVNG LINTON Facility:[facility] Start: 01-01-[address] KVNG LINTON Facilit y:[facility] Procedures Date Procedure Procedure Detail Performing Clinician Start: 03-02-2025 SKIN EXCISION Katlin Romero MD Work Phone: Start: 03-02-2025 SKIN REPAIR Katlin mike MD Work Phone: Start: 01-27-2025 XR FOOT RT MIN 3V Gener ic External Data Provider Start: 02-12-2024 Follow-up visit Follow-up KAMLA AYALA Plan of Treatment Date Care Activity Detail Author Start: 02-23-2026 Medicare Annual Wellness (AWV) Medicare Annual Wellness (AWV) [facility] Start: 04-10-2025 Screening for malignant neoplasm of colon [facility] Start: 03-22-2025 Influenza vaccination [facility] Start: 03-16-2025 End: 03-16-2025 Patient encounter procedure 03/16/2025 3:30 PM EDT Office Visit [facility] [place] [facility] [address] [place] [id number] Katlin Romero MD [address] [place] [address] [facility] [place] [facility] Start: 03-02-2025 End: 03-02-2025 Patient encounter procedure [facility] Comment on above: Arrived Start: 02-23-2025 End: 02-23-2025 Patient encounter procedure 02/23/2025 10:00 AM EDT Office Visit [facility] [place] [facility] [address] [place] [address] Nicky Riddle PA [address] [place] [address] Arrived [facility] [place] [facility] Comment on above: Arrived Start: 02-05-2025 Medicare Annual Wellness (AWV) Medicare Annual Wellness (AWV) [facility] Start: 01-06-2025 End: 01-06-2025 Patient encounter procedure 01/06/2025 11:00 AM EDT Office Visit [facility] [address] [place] [address] Tsering Starr, [employer] [address] [place] [address] [facility] Start: 12-30-2024 End: 12-30-2024 Patient encounter procedure 12/30/2024 12:50 PM EDT Office Visit [facility] [address] [place] [id number] Gabriela Gilman PA [address] [place] [address] Arrived [facility] Comment on above: Arrived Start: 11-23-2024 End: 11-23-2024 Patient encounter procedure 11/23/2024 4:00 PM EDT Office Visit [facility] [address] [place] [address] Kvng Litnon MD [address] [place] [address] [facility] Start: 11-11-2024 End: 11-11-2024 Patient encounter procedure 11/11/2024 9:30 AM EDT Office Visit [facility] [address] [place] [address] Tsering Starr NP [address] [place] [address] Arrived [facility] Comment on above: Arrived Start: 08-03-2024 End: 08-03-2024 Patient encounter procedure [facility] Start: 07-30-2024 End: 07-30-2025 25-hydroxyvitamin D3 [Mass/volume] in Serum or Plasma Vitamin D 25 hydroxy Total Lab Routine Vitamin D deficiency Expected: 07/30/2024 (Approximate), Expires: 07/30/2025 [facility] Comment on above: Expected: 07/30/2024 (Approximate), Expi res: 07/30/2025 Start: 07-30-2024 End: 07-30-2025 CBC W Auto Differential panel - Blood CBC and differential Lab Routine Essential (primary) hypertension (CMS/HCC) History of sepsis Expected: 07/30/2024 (Approximate), Expires: 07/30/2025 [facility] Work Phone: Comment on above: Expected: 07/30/2024 (Approximate), Expi res: 07/30/2025 Start: 07-30-2024 End: 07-30-2025 Comprehensive metabolic 2000 panel - Serum or Plasma Comprehensive metabolic panel Lab Routine Essential (primary) hypertension (CMS/HCC) Expected: 07/30/2024 (Approximate), Expires: 07/30/2025 [facility] Comment on above: Expected: 07/30/2024 (Approximate), Expi res: 07/30/2025 Start: 07-30-2024 End: 07-30-2025 Lipid 1996 panel - Serum or Plasma Lipid panel Lab Routine Essential (primary) hypertension (CMS/HCC) Expected: 07/30/2024 (Approximate), Expires: 07/30/2025 [facility] Comment on above: Expected: 07/30/2024 (Approximate), Expi res: 07/30/2025 Start: 07-30-2024 End: 07-30-2024 Patient encounter procedure 07/30/2024 9:00 AM EST Office Visit [facility] [address] [place] [address] Nicky Riddle PA [address] [place] [address] Arrived [facility] Comment on above: Arrived Start: 05-04-2024 End: 05-04-2024 Patient encounter procedure 05/04/2024 3:15 PM EDT Office Visit [facility] [address] [place] [address] Kvng Linton MD [address] [place] [address] Arrived [facility] Comment on above: Arrived Start: 03-22-2024 Influenza vaccination Influenza Vaccine (#1) [facility] Start: 09-04-2023 End: 09-04-2025 Echocardiogram 2D complete Echocardiogram 2D complete Echocardiography Routine TIA (transient ischemic attack) Expected: 09/04/2023 (Approximate), Expires: 09/04/2025 [facility] Work Phone: Comment on above: Expected: 09/04/2023 (Approximate), Expi res: 09/04/2025 Start: 09-04-2023 End: 09-04-2023 Patient encounter procedure 09/04/2023 11:30 AM EST Office Visit [facility] [address] [place] [address] Kvng Linton MD [address] [place] [address] Arrived [facility] Comment on above: Arrived Start: 05-07-2023 Medicare Annual Wellness (AWV) Medicare Annual Wellness (AWV) [facility] Start: 03-22-2023 Influenza vaccination Influenza Vaccine (#1) [facility] Start: 1945 Screening for malignant neoplasm of colon [facility] Dermatopathology exam Dermatopat hology exam Pathology and Cytology Timed Epidermal inclusion cyst Release Upon Ordering for 1 Occurrences starting 03/02/2025 [facility] Work Phone: Comment on above: Release Upon Ordering for 1 Occurrences starting 03/02/2025 Immunizations Immunization Date Immunization Notes Care Provider Fa cility 07-05-2022 Influenza, High-dose Seasonal, Quadrivalent, Preservative Free Kvng Linton MD Work Phone: [facility] 07-05-2022 influenza virus vacc ine, unspecified formulation Kvng Linton MD Work Phone: [facility] 05-03-2021 influenza, high dose seasonal, preservative-free Kvng Linton MD Work Phone: [facility] 04-12-2020 Influenza, High-dose Seasonal, Quadrivalent, Preservative Free Kvng Linton MD Work Phone: [facility] 04-12-2020 pneumococcal conjuga te vaccine, 13 valent Kvng Linton MD Work Phone: [facility] 04-05-2020 influenza, high dose seasonal, preservative-free Kvng Linton MD Work Phone: [facility] 04-05-2020 pneumococcal polysaccharide vaccine, 23 valent Kvng Linton MD Work Phone: [facility] 07-02-2019 influenza, high dose seasonal, preservative-free Kvng Linton MD Work Phone: [facility] 06-05-2018 Influenza, injectabl e, Madin [place] Canine Kidney, preservative free, quadrivalent Kvng Linton MD Work Phone: [facility] 04-23-2018 seasonal influenza, intradermal, preservative free Kvng Linton MD Work Phone: [facility] 04-23-2016 influenza, injectabl e, quadrivalent, contains preservative Kvng Linton MD Work Phone: [facility] 11-16-2013 pneumococcal polysaccharide vaccine, 23 valent Kvng Linton MD Work Phone: [facility] 01-21-2012 tetanus toxoid, redu nithin diphtheria toxoid, and acellular pertussis vaccine, adsorbed Kvng Linton MD Work Phone: [facility] Payers Date Payer Category Payer Medicare [id number] 2023 Medicare (Managed Care) [facility] Member Subscriber Plan / Payer (Effective 2023-Present) Name: Nighat Berenice E Relation to Subscriber: Self Name: Berenice Silva Payer ID: Not on file Group ID: [id number] Type: Not on file Address: [facility] [address] [place] [id number] 2023 Medicare [id number] 2013 Medicare [id number]. [id number] 1959 Medicare [id number] 1959 Unknown [id number] 1947 Unknown [id number] 840.1.641136.3.579.2. 593 1947 Unknown [id number] .840.1.911823.3.579.2. 593 1947 Unknown [id number] .0.1.023182.3.579.2. 593 1947 Unknown [id number] 09.06.830.1.812195.3.579.2. 593 1947 Unknown [id number] 2.16.840.1.420388.3.579.2. 593 1947 Unknown [id number] 2.16.840.1.891501.3.579.2. 593 1947 Unknown [id number] 2.16.840.1.392319.3.579.2. 593 1947 Unknown [id number] 2.16.840.1.482406.3.579.2. 593 1947 Unknown [id number] 2.16.840.1.929181.3.579.2. 593 1947 Unknown [id number] 2.16.840.1.343310.3.579.2. 593 1947 Unknown [id number] 2.16.840.1.910008.3.579.2. 593 1947 Unknown [id number] 2.16.840.1.230282.3.579.2. 593 1947 Unknown [id number] 2.16.840.1.669758.3.579.2. 593 1947 Unknown [id number] 2.16.840.1.775151.3.579.2. 593 1947 Unknown [id number] 2.16.840.1.249614.3.579.2. 593 1947 Unknown [id number] 2.16.840.1.365959.3.579.2. 593 1947 Unknown [id number] 2.16.840.1.329650.3.579.2. 593 1947 Unknown [id number] 2.16.840.1.242950.3.579.2. 593 1947 Unknown [id number] 2.16.840.1.721024.3.579.2. 593 1947 Unknown [id number] 2.16.840.1.760943.3.579.2. 593 1947 Unknown [id number] 2.16.840.1.235266.3.579.2. 593 1947 Unknown [id number] 2.16.840.1.802103.3.579.2. 593 1947 Unknown [id number] 2.16.840.1.892442.3.579.2. 593 1947 Unknown [id number] 2.16.840.1.691813.3.579.2. 593 1947 Unknown [id number] 2.16.840.1.670341.3.579.2. 593 1947 Unknown [id number] 2.16.840.1.498272.3.579.2. 173 1947 Unknown [id number] 2.16.840.1.502508.3.579.2. 128 1947 Unknown [id number] 2.16.840.1.989291.3.579.2. 128 1947 Unknown [id number] 2.16.840.1.728088.3.579.2. 128 1947 Unknown [id number] 2.16.840.1.953045.3.579.2. 128 1947 Unknown [id number] 2.16.840.1.232362.3.579.2. 128 1947 Unknown [id number] 2.16.840.1.215550.3.579.2. 1286 1947 Unknown [id number] 2.16.840.1.488403.3.579.2. 128 1947 Unknown [id number] 2.16.840.1.916685.3.579.2. 128 1947 Unknown [id number] 2.16.840.1.609921.3.579.2. 128 1947 Unknown [id number] 2.16.840.1.227025.3.579.2. 128 1947 Unknown [id number] 2.16.840.1.993245.3.579.2. 1285 1947 Unknown [id number] 2.16.840.1.557649.3.579.2. 128 1947 Unknown [id number] 2.16.840.1.262247.3.579.2. 128 1947 Unknown [id number] 2.16.840.1.310345.3.579.2. 1259 1947 Unknown [id number] 2.16.840.1.218113.3.579.2. 9 1947 Unknown [id number] 2.16.840.1.867376.3.579.2. 1258 1947 Unknown [id number] 2.16.840.1.649328.3.579.2. 1258 1947 Unknown [id number] 2.16.840.1.397034.3.579.2. 1258 1947 Unknown [id number] 2.16.840.1.968267.3.579.2. 1259 Social History Date Type Detail Facility Start: 03-12-2023 End: 11-11-2024 Tobacco smoking status [facility] Ex-smoker [facility] Start: 07-30-1965 End: 07-22-1992 History of tobacco use Current smoker [facility] Start: 07-30-1965 End: 07-22-1992 History of tobacco use Cigarette Smoker [facility] Start: 03-12-2023 End: 11-11-2024 Tobacco use and exposure Smokeless tobacco non-user [facility] Start: 08-30-2023 End: 09-04-2023 Alcohol intake Not Asked [facility] Start: 03-12-2023 End: 03-05-2024 History of Social function [facility] Work Phone: Start: 03-12-2023 End: 03-05-2024 Tobacco use panel [facility] Work Phone: Start: 03-14-2023 Alcohol Comment caffeine intak e: more than 4 cups per day. [facility] Start: 1945 Sex Assigned At Not on file [facility] Start: 03-31-2024 End: 03-02-2025 Alcoholic beverage intake Lifetime non-drinker (finding) [facility] How often do you nee d to have someone help you when you read instructions, pamphlets, or other written material from your doctor or pharmacy [SILS] Never [facility] Work Phone: Are you now , , , , never or living with a partner? [facility] How often to you hav e a drink containing alcohol? Never [facility] How hard is it for y ou to pay for the very basics like food, housing, medical care, and heating Very hard [facility] Do you feel stress - tense, restless, nervous, or anxious, or unable to sleep at night because your mind is troubled all the time - these days [OSQ] Only a little [facility] (I/We) worried wheth er (my/our) food would run out before (I/we) got money to buy more. Never true [facility] In the past 12 month s, was there a time when you were not able to pay the mortgage or rent on time? No [facility] Functional Status Date Assessment Result Facility 02-23-2025 Patient Health Quest ionnaire 2 item (PHQ-2) [Reported] [facility] 11-11-2024 Patient Health Quest ionnaire 2 item (PHQ-2) [Reported] [facility] Clinical Notes 02-26-2022 to 03-02-2025 Katlin Romero MD - 03/02/2025 3:15 PM YUE Wiley - 02/23/2025 10:00 AM YUE Sumner - 12/30/2024 12:50 PM Tray Starr NP - 11/11/2024 9:30 AM EDT Note Date & Type Note Facility 03-02-2025 History of Present illness Narrative Images from the original note were not included. Subjective Berenice Silva is a 79 y.o. female who presents for the following: Excision. Location: Left abdomen-upper Date of biopsy: N/A Diagnosis: Epidermal inclusion cyst Pre-Op Checklist: History of pacemaker/defibrillator: No History of joint replacement in the past 2 years: No History of HIV/Hepatitis B/Hepatitis C: No Latex allergy: No Is the patient currently on a blood thinner? Yes. Aspirin. The patient was recommended to continue taking their blood thinner as usual before, during, and after the procedure. All pertinent medical history, medications, and allergies were reviewed. Surgical assistants: Gela Pool LPN and Geri Sanders MA Objective Well appearing patient in no apparent distress; mood and affect are within normal limits. Skin Exam 1. EPIDERMAL INCLUSION CYST Left Abdomen (side) - Upper 2.3 x 2.0 cm erythematous, subcutaneous nodule Return to clinic prior to next scheduled visit for any signs or symptoms of recurrence, reviewed the signs and symptoms. Skin excision - Left Abdomen (side) - Upper Lesion length (cm): 2.3 Lesion width (cm): 2 Margin per side (cm): 0 Total excision diameter (cm): 2.3 Informed consent: discussed and consent obtained Informed consent comment: Risks and possible complications were discussed as noted on the consent form. The consent form was signed prior to the procedure. Timeout: patient name, date of , surgical site, and procedure verified Timeout comment: Patient and provider identified site. Site was marked and excision was drawn out. Photo was taken and shown to patient, patient verified this is the correct site. Procedure prep: Patient was prepped and draped in usual sterile fashion (The planned incision lines were drawn along relaxed skin tension lines, if possible, to minimize scarring and deformity of surrounding structures.) Prep type: Chlorhexidine Anesthesia: the lesion was anesthetized in a standard fashion Anesthesia comment: The local anesthetic was injected to create a field block at the site of the procedure. Anesthetic: 1% lidocaine w/ epinephrine 1-100,000 buffered w/ 8.4% NaHCO3 Instrument used: #15 blade Instrument used comment: Incisions were made as drawn, and the surrounding tissue was undermined until the skin edges could be approximated without undue tension. Any tissue redundancies were removed. Hemostasis achieved with: electrodesiccation Additional details: Amount of lidocaine used: 6.0 ml Estimated blood loss: <1.0 ml Skin repair - Left Abdomen (side) - Upper Complexity: Intermediate Final length (cm): 2.3 Reason for type of repair: allow closure of the large defect Undermining: edges undermined Undermining comment: The surrounding tissue was undermined until the skin edges could be approximated without undue tension. Any tissue redundancies were removed. Subcutaneous layers (deep stitches): Suture size: 3-0 Suture type comment: Biosyn Stitches: Buried horizontal mattress (Closure was performed in a layered fashion with subcutaneous tissue closed first using tension-bearing absorbable sutures to the level of the superficial fascia.) Fine/surface layer approximation (top stitches): Suture size: 4-0 Suture type: Prolene (polypropylene) Stitches: simple running Stitches comment: Epicuticular skin sutures were then placed with minimal tension. Suture removal (days): 14 Outcome: patient tolerated procedure well with no complications Post-procedure details: sterile dressing applied and wound care instructions given Post-procedure details comment: It was emphasized to the patient to contact the office for any signs of infection, uncontrollable bleeding, or complications. Dressing type: bandage mupirocin (Bactroban) 2 % ointment - Left Abdomen (side) - Upper Apply to affected area (abdomen) with dressing changes, 30 day supply Specimen A - Dermatopathology exam Differential Diagnosis: EIC Check Margins: No Size of lesion: 2.3 x 2.0 cm Diagnosis: (L72.0) Epidermal inclusion cyst 2. PAIN Follow up: 14 days for s/r documented in this encounter [facility] 02-23-2025 History of Present illness Narrative Images from the original note were not included. HPI Med Refill Additional comments: Ropinirole Back Pain Additional comments: Getting worse and would like to discuss options. She takes Tramadol as needed but not very often - it causes constipation and she already has problems with constipation Last edited by Rochelle Hoover LPN on 02/23/2025 10:11 AM. Subjective Patient ID: Berenice Silva is a 79 y.o. female who presents for Medicare Annual Wellness Visit Subsequent, Med Refill (Ropinirole), and Back Pain (Getting worse and would like to discuss options. She takes Tramadol as needed but not very often - it causes constipation and she already has problems with constipation). Med Refill Pertinent negatives include no abdominal pain, arthralgias, chest pain, chills, congestion, coughing, fatigue, fever, nausea, numbness, rash, sore throat or vomiting. Back Pain Pertinent negatives include no abdominal pain, chest pain, dysuria, fever or numbness. Medicare Wellness Over the past 2 weeks, how often have you been bothered by any of the following problems? Little interest or pleasure in doing things: Not at all Feeling down, depressed, or hopeless: Not at all Patient Health Questionnaire-2 Score: 0 Over the past 2 weeks, how often have you been bothered by any of the following problems? Trouble falling or staying asleep, or sleeping too much: Not at all Feeling tired or having little energy: Not at all Poor appetite or overeating: Not at all Feeling bad about yourself - or that you are a failure or have let yourself or your family down: Not at all Trouble concentrating on things, such as reading the newspaper or watching television: Not at all Moving or speaking so slowly that other people could have noticed? Or the opposite - being so fidgety or restless that you have been moving around a lot more than usual.: Not at all Thoughts that you would be better off or hurting yourself in some way: Not at all Patient Health Questionnaire-9 Score: 0 Walker Fall Risk History of Falling, Immediate or Within 3 Months: No Health Risk Assessment Form Do you need help eating, bathing, using the toilet, dressing, or getting around your home?: No Can you prepare your own meals?: Yes Can you do your own housework without help?: Yes Can you shop for groceries or clothes without help?: Yes Do you exercise for about 20 minutes 3 or more days a week?: No How confident are you that you can control and manage most of your health problems?: Very confident Can you mange your money, credit cards and accounts, pay bills and taxes?: Yes Vision Screening: Yes, no gross abnormalities Hearing Screening: Yes, no gross abnormalities Cognitive Screening Self Assessment: No overt cognitive deficiency is apparent by direct observation Three Word Registration: Leader, Season, Table Clock Drawing: Normal Clock - 2 Three Word Recall: 2/3 words correct - 2 Total Score (0-5 Points): 4 Pain Assessment Pain Score: 8 Advance Care Planning Do you have a living will?: No (already has paperwork) Do you have a medical power of civil rights attorney?: No Current Outpatient Medications on File Prior to Visit Medication Sig Dispense Refill aspirin 81 MG EC tablet Take 81 mg by mouth Daily atorvastatin (Lipitor) 10 MG tablet Take 1 tablet (10 mg) by mouth in the morning. (Patient not taking: Reported on 07/30/2024) 100 tablet 3 cholecalciferol (Vitamin D-3) 50 MCG (2000 UT) tablet Take 1,000 Units by mouth in the morning. cloNIDine (Catapres) 0.1 MG tablet TAKE 1 TABLET BY MOUTH EVERY 8 HOURS IF NEEDED FOR HIGH BLOOD PRESSURE FOR 170 OR GREATER (Patient not taking: Reported on 02/23/2025) 30 tablet 0 gabapentin (Neurontin) 600 MG tablet TABLET 1/2 TABLET BY MOUTH TWICE A DAY AND TAKE 1 TABLET BY MOUTH EVERY DAY AT BEDTIME 180 tablet 3 ibuprofen 800 MG tablet Take 800 mg by mouth every 6 (six) hours if needed for moderate pain meloxicam (Mobic) 15 MG tablet Take 1 tablet (15 mg) by mouth Daily Take with food 90 tablet 3 Multiple Vitamin (Multi-Vitamin) tablet Take 1 tablet by mouth in the morning. olmesartan-hydroCHLOROthiazide (BENIcar HCT) 20-12.5 MG tablet Take 1 tablet by mouth Daily rOPINIRole (Requip) 0.5 MG tablet Take 2 tablets (1 mg) by mouth in the morning and 2 tablets (1 mg) before bedtime. 360 tablet 3 traMADol (Ultram) 50 MG tablet Take 1 tablet (50 mg) by mouth every 6 (six) hours if needed for severe pain 40 tablet 1 [DISCONTINUED] ascorbic acid (Vitamin C) 250 MG tablet Take 250 mg by mouth in the morning. No current facility-administered medications on file prior to visit. I have reviewed and reconciled the history and medication list with the patient today. Allergies Allergen Reactions Amoxicillin-Pot Clavulanate Nausea Only Sulfa Antibiotics Other Reaction(s): itching Social History Tobacco Use Smoking status: Former Current packs/day: 0.00 Average packs/day: 0.5 packs/day for 27.0 years (13.5 ttl pk-yrs) Types: Cigarettes Start date: 07/30/1965 Quit date: 07/22/1992 Years since quittin.6 Smokeless tobacco: Never Vaping Use Vaping status: Never Used Substance Use Topics Alcohol use: Never Comment: caffeine intake: more than 4 cups per day. Drug use: Never Family History Problem Relation Name Age of Onset Cancer Mother Josefina Heart disease Father Gage Past Medical History: Diagnosis Date Arthritis History of being hospitalized 08/24/2023 TIA History of being hospitalized 10/26/2023 Sepsis, Encephalopathy, Pneumonia Hyperlipidemia Hypertension Past Surgical History: Procedure Laterality Date ARTHROPLASTY 2018 CATARACT EXTRACTION SECTION, LOW TRANSVERSE COLONOSCOPY 2013 COLONOSCOPY 12/19/2023 COLONOSCOPY 03/13/2024 Up to Transverse Colon Visualized EGD 2019 esophageal dilatation FOOT SURGERY right foot dr john HERNIA REPAIR IR INJECTION NERVE BLOCK 2020 2021 l4 to s1 and l3-l5 TUBAL LIGATION 1989 UMBILICAL HERNIA REPAIR 1952 Visit Vitals BP 136/82 Pulse 71 Resp 16 Ht 5' 11 Wt 145 lb 12.8 oz SpO2 96% BMI 20.33 kg/m Smoking Status Former BSA 1.82 m Review of Systems Constitutional: Negative for chills, fatigue and fever. HENT: Negative for congestion, ear pain, rhinorrhea and sore throat. Eyes: Negative for pain, discharge and visual disturbance. Respiratory: Negative for cough, shortness of breath and wheezing. Cardiovascular: Negative for chest pain, palpitations and leg swelling. Gastrointestinal: Negative for abdominal pain, constipation, diarrhea, nausea and vomiting. Genitourinary: Negative for difficulty urinating, dysuria and frequency. Musculoskeletal: Positive for back pain and gait problem. Negative for arthralgias. Skin: Negative for rash. Neurological: Negative for dizziness and numbness. Psychiatric/Behavioral: Negative for sleep disturbance. The patient is not nervous/anxious. Objective Physical Exam Constitutional: General: She is not in acute distress. Appearance: Normal appearance. She is well-developed. HENT: Head: Normocephalic and atraumatic. Right Ear: Tympanic membrane and ear canal normal. Left Ear: Tympanic membrane and ear canal normal. Nose: Nose normal. Mouth/Throat: Mouth: Mucous membranes are moist. Pharynx: No posterior oropharyngeal erythema. Eyes: General: No scleral icterus. Extraocular Movements: Extraocular movements intact. Conjunctiva/sclera: Conjunctivae normal. Pupils: Pupils are equal, round, and reactive to light. Neck: Vascular: No carotid bruit. Cardiovascular: Rate and Rhythm: Normal rate and regular rhythm. Heart sounds: Normal heart sounds. No murmur heard. Pulmonary: Effort: Pulmonary effort is normal. No respiratory distress. Breath sounds: Normal breath sounds. No wheezing, rhonchi or rales. Abdominal: General: Bowel sounds are normal. There is no distension. Palpations: Abdomen is soft. Tenderness: There is no abdominal tenderness. There is no guarding. Musculoskeletal: General: No swelling or deformity. Normal range of motion. Cervical back: Normal range of motion and neck supple. No tenderness. Skin: General: Skin is warm and dry. Capillary Refill: Capillary refill takes less than 2 seconds. Findings: No rash. Neurological: General: No focal deficit present. Mental Status: She is alert and oriented to person, place, and time. Cranial Nerves: No cranial nerve deficit. Sensory: No sensory deficit. Motor: Atrophy (Diffuse) present. Gait: Gait abnormal. Deep Tendon Reflexes: Reflexes normal. Psychiatric: Mood and Affect: Mood normal. Behavior: Behavior normal. Thought Content: Thought content normal. Judgment: Judgment normal. Assessment & Plan 1. Medicare annual wellness visit, subsequent (Primary) Reviewed all relevant preventative screenings with the patient in detail. Medicare Wellness form completed and will be scanned into patient's chart. All needed testing was ordered. Will continue with yearly Medicare Wellness exams. 2. ACP (advance care planning) Patient agreed to discuss advance care planning at today's wellness visit. We discussed that an advance directive is a legal document that only goes into effect if the patient is incapacitated and unable to speak for himself or herself. This would help healthcare providers to ensure that the patient gets the care that he or she wishes to receive. The goal is to provide a patient with the best possible quality of life. Encouraged patient to obtain a living will and durable power of civil rights attorney for healthcare. We discussed telling yoder people about their advance directives such as close family members, and requested a copy to scan into the patient's EHR. An advance directive packet was offered to the patient. 3. 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 No changes in treatment are suggested at this time. Continue Gabapentin as prescribed. 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 No changes in treatment are suggested at this time. Continue Gabapentin as prescribed. 5. Lumbar neuritis This is a chronic medical condition that is stable since last assessment. No changes in treatment are suggested at this time. Continue Gabapentin as prescribed. 6. Neural foraminal stenosis of lumbar spine This is a chronic medical condition that is stable since last assessment. No changes in treatment are suggested at this time. Continue Gabapentin as prescribed. 7. Neurogenic pain This is a chronic medical condition that is stable since last assessment. No changes in treatment are suggested at this time. Continue Gabapentin as prescribed. 8. Osteoarthritis of spine with radiculopathy, lumbar region This is a chronic medical condition that is stable since last assessment. No changes in treatment are suggested at this time. Continue Meloxicam as prescribed. 9. Other chronic pain Medication choice and dosage is appropriate for patient's current medical conditions. Patient will continue to be required to be seen in our office at least every three months for monitoring. At each follow up visit I will reassess the patient's need for the medication. Patient is to have this medication prescribed only through this office. Failure to follow the rules and regulations will result in tapering and discontinuation of medications if applicable. Patient verbalized understanding. OARRS Report was reviewed for this patient. 10. Restless legs syndrome (RLS) This is a chronic medical condition that is stable since last assessment. No changes in treatment are suggested at this time. Continue Requip as prescribed. 11. Essential (primary) hypertension Patient's blood pressure is currently stable. Continue with current medications and I will continue to monitor. Goal BP remains less than 130/80. 12. Racing heart beat This is a chronic medical condition that is stable since last assessment. No specific treatment at this time. 13. Transient ischemic attack This is a chronic medical condition that is stable since last assessment. No changes in treatment are suggested at this time. Continue ASA daily. 14. Chronic idiopathic constipation Reviewed OTC treatment options for pt, including Smooth Move Tea. Can contact office if symptoms do not improve. 15. Pharyngoesophageal dysphagia This is a chronic medical condition that is stable since last assessment. No specific treatment at this time. 16. Atrophy of nail This is a chronic medical condition that is stable since last assessment. No specific treatment at this time. 17. Cervical paraspinal muscle spasm This is a chronic medical condition that is stable since last assessment. No specific treatment at this time. 18. Charcot's joint, right ankle and foot This is a chronic medical condition that is stable since last assessment. No changes in treatment are suggested at this time. Continue Meloxicam as prescribed. 19. Equinus contracture of right ankle This is a chronic medical condition that is stable since last assessment. No changes in treatment are suggested at this time. Continue Meloxicam as prescribed. 20. Glenohumeral arthritis This is a chronic medical condition that is stable since last assessment. No changes in treatment are suggested at this time. Continue Meloxicam as prescribed. 21. Primary osteoarthritis, unspecified site Medication choice and dosage is appropriate for patient's current medical conditions. Patient will continue to be required to be seen in our office at least every three months for monitoring. At each follow up visit I will reassess the patient's need for the medication. Patient is to have this medication prescribed only through this office. Failure to follow the rules and regulations will result in tapering and discontinuation of medications if applicable. Patient verbalized understanding. OARRS Report was reviewed for this patient. - traMADol (Ultram) 50 MG tablet; Take 1 tablet (50 mg) by mouth every 6 (six) hours if needed for severe pain for up to 10 days Dispense: 40 tablet; Refill: 0 22. Impingement syndrome of right shoulder This is a chronic medical condition that is stable since last assessment. No changes in treatment are suggested at this time. Continue Meloxicam as prescribed. 23. Degeneration of intervertebral disc of lumbar region with discogenic back pain This is a chronic medical condition that is stable since last assessment. No changes in treatment are suggested at this time. Continue Gabapentin as prescribed. 24. Lumbar paraspinal muscle spasm This is a chronic medical condition that is stable since last assessment. No changes in treatment are suggested at this time. Continue Meloxicam as prescribed. 25. Atrophy of muscle of multiple sites This is a chronic medical condition that is stable since last assessment. Encouraged stay active. Get adequate protein intake. 26. Osteopenia of multiple sites This is a chronic medical condition that is stable since last assessment. No changes in treatment are suggested at this time. Continue MV daily. 27. Rheumatoid factor positive This is a chronic medical condition that is stable since last assessment. No changes in treatment are suggested at this time. Continue Meloxicam as prescribed. 28. Other hammer toe(s) (acquired), right foot This is a chronic medical condition that is stable since last assessment. No changes in treatment are suggested at this time. Continue Meloxicam as prescribed. 29. Polyarthritis This is a chronic medical condition that is stable since last assessment. No changes in treatment are suggested at this time. Continue Meloxicam as prescribed. 30. Localized, primary osteoarthritis of ankle or foot, unspecified laterality This is a chronic medical condition that is stable since last assessment. No changes in treatment are suggested at this time. Continue Meloxicam as prescribed. 31. Primary osteoarthritis of right foot This is a chronic medical condition that is stable since last assessment. No changes in treatment are suggested at this time. Continue Meloxicam as prescribed. 32. Primary osteoarthritis, right shoulder This is a chronic medical condition that is stable since last assessment. No changes in treatment are suggested at this time. Continue Meloxicam as prescribed. 33. Lumbar spondylosis This is a chronic medical condition that is stable since last assessment. No changes in treatment are suggested at this time. Continue Gabapentin as prescribed. 34. Vitamin D deficiency This is a chronic medical condition that is stable since last assessment. No changes in treatment are suggested at this time. Continue MV daily. 35. Abnormal blood chemistry This is a chronic medical condition that is stable since last assessment. Will continue to monitor with routine labs. 36. Anxiety This is a chronic medical condition that is stable since last assessment. No medications required at this time. 37. Decreased estrogen level This is a chronic medical condition that is stable since last assessment. Will continue to monitor with routine screenings. 38. Disorder of sacrum This is a chronic medical condition that is stable since last assessment. No changes in treatment are suggested at this time. Continue Meloxicam as prescribed. 39. Dyslipidemia This is a chronic medical condition that is stable since last assessment. Will continue to monitor with routine labs. 40. Edema, unspecified type No complaints at this time. Will continue to monitor. 41. History of sepsis No complaints at this time. Will continue to monitor. 42. Hyperlipoproteinemia This is a chronic medical condition that is stable since last assessment. Will continue to monitor with routine labs. 43. Laryngopharyngeal reflux This is a chronic medical condition that is stable since last assessment. No specific treatment needed at this time. 44. Chronic left-sided low back pain with left-sided sciatica This is a chronic medical condition that is stable since last assessment. No changes in treatment are suggested at this time. Continue Gabapentin as prescribed. 45. Left sided sciatica This is a chronic medical condition that is stable since last assessment. No changes in treatment are suggested at this time. Continue Gabapentin as prescribed. Follow up in about 3 months (around 05/26/2025) for Medication Follow Up. Nicky POTTS, PAGayC documented in this encounter [facility] 12-30-2024 History of Present illness Narrative Images from the original note were not included. Lesions: Location: Abdomen Duration: 3 years Quality: itchy Modifying factors: painful when breasts rub on it Associated symptoms: history of filling up and rupturing Treatments: none New patient All pertinent medical history, medications, and allergies were reviewed. General Exam: alert, oriented to person, place, and time, normal affect, well appearing Unaccompanied A focused exam completed based on patient reported problems, see below: Skin Exam 1. EPIDERMAL INCLUSION CYST Left Abdomen (side) - Upper 2.3 x 2.0 cm subcutaneous, mobile nodule with central punctum. Patient was counseled regarding cysts. Although benign, cysts often slowly enlarge and can occasionally become inflamed. Discussed the only way to definitively diagnose the lesion would be to have it removed and tested. Discussed treatment options including observation vs. excision. Patient elected for excision, plan schedule with Dr. Romero. Notify office if lesion is enlarging or becomes symptomatic. 2. LOCALIZED TENDERNESS Next Visit: 03/02/2025, excision documented in this encounter [facility] 11-11-2024 History of Present illness Narrative Images from the original note were not included. Subjective Patient ID: Berenice Silva is a 78 y.o. female who presents for No chief complaint on file.. Berenice presents today for an ER F/U for high blood pressure. She also had a headache, dizziness. Bp was 210/100 when she went to the ER Hypertension This is a new problem. The current episode started yesterday (Pt went off of her medication, started having headache and went to ER). The problem has been gradually improving (BP has improved since adding medication) since onset. The problem is uncontrolled. There are no associated agents to hypertension. Risk factors for coronary artery disease include dyslipidemia and post-menopausal state. Past treatments include calcium channel blockers. The current treatment provides mild improvement. There are no compliance problems. Current Outpatient Medications on File Prior to Visit Medication Sig Dispense Refill ascorbic acid (Vitamin C) 250 MG tablet Take 250 mg by mouth in the morning. aspirin 81 MG EC tablet Take 81 mg by mouth Daily atorvastatin (Lipitor) 10 MG tablet Take 1 tablet (10 mg) by mouth in the morning. (Patient not taking: Reported on 07/30/2024) 100 tablet 3 cholecalciferol (Vitamin D-3) 50 MCG (2000 UT) tablet Take 1,000 Units by mouth in the morning. gabapentin (Neurontin) 600 MG tablet TABLET 1/2 TABLET BY MOUTH TWICE A DAY AND TAKE 1 TABLET BY MOUTH EVERY DAY AT BEDTIME 180 tablet 3 ibuprofen 800 MG tablet Take 800 mg by mouth every 6 (six) hours if needed for moderate pain meloxicam (Mobic) 15 MG tablet Take 1 tablet (15 mg) by mouth Daily Take with food 90 tablet 3 Multiple Vitamin (Multi-Vitamin) tablet Take 1 tablet by mouth in the morning. olmesartan-hydroCHLOROthiazide (BENIcar HCT) 20-12.5 MG tablet Take 1 tablet by mouth Daily rOPINIRole (Requip) 0.5 MG tablet Take 2 tablets (1 mg) by mouth in the morning and 2 tablets (1 mg) before bedtime. 360 tablet 3 traMADol (Ultram) 50 MG tablet Take 1 tablet (50 mg) by mouth every 6 (six) hours if needed for severe pain 40 tablet 1 No current facility-administered medications on file prior to visit. I have reviewed and reconciled the history and medication list with the patient today. Allergies Allergen Reactions Amoxicillin-Pot Clavulanate Nausea Only Sulfa Antibiotics Other Reaction(s): itching Social History Tobacco Use Smoking status: Former Current packs/day: 0.00 Average packs/day: 0.5 packs/day for 27.0 years (13.5 ttl pk-yrs) Types: Cigarettes Start date: 07/30/1965 Quit date: 07/22/1992 Years since quittin.3 Smokeless tobacco: Never Vaping Use Vaping status: Never Used Substance Use Topics Alcohol use: Never Comment: caffeine intake: more than 4 cups per day. Drug use: Never Family History Problem Relation Name Age of Onset Cancer Mother Josefina Heart disease Father Gage Past Medical History: Diagnosis Date Arthritis History of being hospitalized 08/24/2023 TIA History of being hospitalized 10/26/2023 Sepsis, Encephalopathy, Pneumonia Hyperlipidemia (CMS/HCC) Hypertension (CMS/HCC) Past Surgical History: Procedure Laterality Date ARTHROPLASTY 2019 CATARACT EXTRACTION SECTION, LOW TRANSVERSE COLONOSCOPY 2013 COLONOSCOPY 12/19/2023 COLONOSCOPY 03/13/2024 Up to Transverse Colon Visualized EGD 2019 esophageal dilatation FOOT SURGERY right foot dr john HERNIA REPAIR IR INJECTION NERVE BLOCK 2020 2021 l4 to s1 and l3-l5 TUBAL LIGATION 1989 UMBILICAL HERNIA REPAIR 1952 Visit Vitals Smoking Status Former Review of Systems Constitutional: Negative. HENT: Negative. Eyes: Negative. Respiratory: Negative. Cardiovascular: Negative. Gastrointestinal: Negative. Genitourinary: Negative. Musculoskeletal: Negative. Skin: Negative. Neurological: Negative. Psychiatric/Behavioral: Negative. Endocrine: Negative. Objective Physical Exam Vitals reviewed. Constitutional: Appearance: Normal appearance. HENT: Head: Normocephalic. Nose: Nose normal. Mouth/Throat: Mouth: Mucous membranes are moist. Pharynx: Oropharynx is clear. Eyes: Conjunctiva/sclera: Conjunctivae normal. Cardiovascular: Rate and Rhythm: Normal rate. Pulmonary: Effort: Pulmonary effort is normal. Skin: General: Skin is warm and dry. Neurological: General: No focal deficit present. Mental Status: She is alert and oriented to person, place, and time. Psychiatric: Mood and Affect: Mood normal. Behavior: Behavior normal. Thought Content: Thought content normal. Judgment: Judgment normal. Assessment/Plan Diagnoses and all orders for this visit: Essential (primary) hypertension (CMS/HCC) - cloNIDine (Catapres) 0.1 MG tablet; Take 1 tablet (0.1 mg) by mouth every 8 (eight) hours if needed for high blood pressure (for SBP 170 or greater) Patient's blood pressure is currently well controlled. Continue with current medications and I will continue to monitor. Goal BP remains less than 130/80. Rheumatoid arthritis, unspecified This is a chronic medical condition that is stable since last assessment. No changes in treatment are suggested at this time. Infected sebaceous gland - Ambulatory referral to Dermatology; Future Await referral No follow-ups on file. documented in this encounter [facility] 08-31-2024 Telephone encounter Note Acknowledged. [facility] 08-31-2024 Miscellaneous Notes Acknowledged. Patient was contacted by JOCE Castro for a sleep study and at this time she wants to cancel the study, for she doesn't feel it is necessary. documented in this encounter [facility] 08-31-2024 Telephone encounter Note Acknowledged. [facility] 08-31-2024 Miscellaneous Notes Acknowledged. 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 Matthew, I was just calling we have a mutual patient. Berenice stovall date of is 5 348. We received an order to do an at home sleep study from Nicky Baez. We did call the patient. She called us back and said that she wants the Order canceled. She does not think that it is necessary. I just wanted to give you this message. If you have any questions, you can call me at my cell phone number. [phone], thank you. documented in this encounter [facility] 08-25-2024 Telephone encounter Note Patient was contacted by JOCE Castro for a sleep study and at this time she wants to cancel the study, for she doesn't feel it is necessary. 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 Mathtew, I was just calling we have a mutual patient. Berenice stovall date of is 5 348. We received an order to do an at home sleep study from Nicky Baez. We did call the patient. She called us back and said that she wants the Order canceled. She does not think that it is necessary. I just wanted to give you this message. If you have any questions, you can call me at my cell phone number. [phone], thank you. [facility] 07-30-2024 History of Present illness Narrative Images from the original note were not included. [facility] Med Refill Additional comments: Ropinirole Last edited by Rochelle Hoover LPN on 07/30/2024 9:09 AM. Subjective Patient ID: Berenice Silva is a 78 y.o. female who presents for hypertension. Berenice is present today for follow up hypertension. Denies chest pain, SOB, blurry vision. Admits headaches when her BP goes up along with feeling like her heart is racing, ringing/wooshing in her ears, keeps her awake at night d/t that is when she feels her BP is high. She does check her BP's at home when she feels off, mostly in the middle of the night when symptoms wake her up, and running on average 195/85-90. She states she has been taking 1/2 a BP pill at 4 am or sometime during the night to get her BP to come down. Has had 3 headaches, coinciding when her BP is elevated. States she does deep breathing which helps. Has not started the Olmesartan-hydrochlorothiazide yet, is finishing the Losartan-hydrochlorothiazide that she had on hand. Sleeps with her mouth open, she does snore, does wake up gasping occasionally. Does not wake up with headaches. She also admits to a burning feeling inside her ever since she had sepsis in October. It is in her upper legs and her abdomen. Happens 4 times a week. No sweating. Just feels like something isn't right. Has tried sleeping in her recliner, sometimes it helps. Current Outpatient Medications on File Prior to Visit Medication Sig Dispense Refill ibuprofen 800 MG tablet Take 800 mg by mouth every 6 (six) hours if needed for moderate pain ascorbic acid (Vitamin C) 250 MG tablet Take 250 mg by mouth in the morning. aspirin 81 MG EC tablet Take 81 mg by mouth Daily atorvastatin (Lipitor) 10 MG tablet Take 1 tablet (10 mg) by mouth in the morning. (Patient not taking: Reported on 07/30/2024) 100 tablet 3 cholecalciferol (Vitamin D-3) 50 MCG (2000 UT) tablet Take 1,000 Units by mouth in the morning. gabapentin (Neurontin) 600 MG tablet TABLET 1/2 TABLET BY MOUTH TWICE A DAY AND TAKE 1 TABLET BY MOUTH EVERY DAY AT BEDTIME 180 tablet 3 meloxicam (Mobic) 15 MG tablet Take 1 tablet (15 mg) by mouth Daily Take with food 90 tablet 3 Multiple Vitamin (Multi-Vitamin) tablet Take 1 tablet by mouth in the morning. rOPINIRole (Requip) 0.5 MG tablet TAKE 2 TABLETS BY MOUTH IN THE MORNING AND TAKE 2 TABLETS AT BEDTIME 360 tablet 1 traMADol (Ultram) 50 MG tablet Take 1 tablet (50 mg) by mouth every 6 (six) hours if needed for severe pain 40 tablet 1 [DISCONTINUED] ALPRAZolam (Xanax) 0.5 MG tablet Take 1 tablet (0.5 mg) by mouth as needed at bedtime for anxiety 30 tablet 1 [DISCONTINUED] aspirin 325 MG tablet Take 81 mg by mouth Daily [DISCONTINUED] calcium carbonate (Os-King) 1250 (500 Ca) MG tablet every 12 (twelve) hours. [DISCONTINUED] linaCLOtide (Linzess) 72 MCG capsule Take 1 capsule (72 mcg) by mouth in the morning. Take before meals. Do not crush or chew.. [DISCONTINUED] olmesartan-hydroCHLOROthiazide (BENIcar HCT) 20-12.5 MG tablet Take 1 tablet by mouth Daily 100 tablet 3 No current facility-administered medications on file prior to visit. I have reviewed and reconciled the history and medication list with the patient today. Allergies Allergen Reactions Amoxicillin-Pot Clavulanate Nausea Only Sulfa Antibiotics Other Reaction(s): itching Social History Tobacco Use Smoking status: Former Current packs/day: 0.00 Average packs/day: 0.5 packs/day for 27.0 years (13.5 ttl pk-yrs) Types: Cigarettes Start date: 07/30/1965 Quit date: 07/22/1992 Years since quittin.0 Smokeless tobacco: Never Vaping Use Vaping status: Never Used Substance Use Topics Alcohol use: Never Comment: caffeine intake: more than 4 cups per day. Drug use: Never Family History Problem Relation Name Age of Onset Cancer Mother Josefina Heart disease Father Gage Past Medical History: Diagnosis Date Arthritis History of being hospitalized 08/24/2023 TIA History of being hospitalized 10/26/2023 Sepsis, Encephalopathy, Pneumonia Hyperlipidemia (CMS/HCC) Hypertension (CMS/HCC) Past Surgical History: Procedure Laterality Date ARTHROPLASTY 2018 CATARACT EXTRACTION SECTION, LOW TRANSVERSE COLONOSCOPY 2013 COLONOSCOPY 12/19/2023 COLONOSCOPY 03/13/2024 Up to Transverse Colon Visualized EGD 2019 esophageal dilatation FOOT SURGERY right foot dr john HERNIA REPAIR IR INJECTION NERVE BLOCK 2020 2021 l4 to s1 and l3-l5 TUBAL LIGATION 1989 UMBILICAL HERNIA REPAIR 1952 Visit Vitals BP 118/76 Pulse 64 Resp 16 Ht 5' 11 Wt 141 lb SpO2 99% BMI 19.67 kg/m Smoking Status Former BSA 1.79 m Review of Systems Constitutional: Negative for chills, fatigue and fever. HENT: Positive for tinnitus. Respiratory: Negative for cough, shortness of breath and wheezing. Cardiovascular: Negative for chest pain, palpitations and leg swelling. Gastrointestinal: Negative for abdominal pain, constipation, diarrhea, nausea and vomiting. Musculoskeletal: Positive for gait problem. Skin: Negative for rash. Neurological: Positive for headaches. Endocrine: Burning sensation Objective Physical Exam Constitutional: General: She is [...] and oriented to person, place, and time. Motor: Atrophy (Diffuse) present. Gait: Gait abnormal (Using straight cane). Psychiatric: Mood and Affect: Mood normal. Behavior: Behavior normal. Assessment/Plan Diagnoses and all orders for this visit: Essential (primary) hypertension (CMS/HCC) - olmesartan-hydroCHLOROthiazide (BENIcar HCT) 20-12.5 MG tablet; Take 1 tablet by mouth Daily - CBC and differential; Future - Comprehensive metabolic panel; Future - Lipid panel; Future Advised pt that her BP is normal today in the office. She will be switching to the Benicar when she runs out of the medication with Losartan. Reviewed proper technique for checking BP with at home cuffs. She is going to get a new BP cuff, states her current one is older. Encouraged her to bring her new cuff in so we can check it in the office to be sure it is accurate. Restless legs syndrome (RLS) - rOPINIRole (Requip) 0.5 MG tablet; Take 2 tablets (1 mg) by mouth in the morning and 2 tablets (1 mg) before bedtime. Refill provided on the above. She does find the medication helpful. History of sepsis - CBC and differential; Future Will recheck CBC with upcoming fasting labs. Burning sensation Advised pt that the etiology of this sensation is unclear. Will await lab results. Vitamin D deficiency - Vitamin D 25 hydroxy Total; Future Will recheck Vitamin D with upcoming fasting labs. Snoring Will order an in home sleep study for the patient. Advised Sleep Apnea might help explain the odd symptoms she has been experiencing at night. Apneic episode Encouraged pt to try a wedge pillow, or sleeping in her recliner more consistently until sleep study is completed. Follow up in about 4 weeks (around 08/27/2024) for Recheck. documented in this encounter [facility] 05-08-2024 Telephone encounter Note Sent. [facility] 05-08-2024 Miscellaneous Notes Sent. documented in this encounter [facility] 05-04-2024 History of Present illness Narrative Images from the original note were not included. HPI Follow-up Additional comments: Lump on abd-see telephone encounter Med Refill Additional comments: [facility] Last edited by Triny Coker LPN on 05/04/2024 3:13 PM. Subjective Patient ID: Berenice Silva is a 78 y.o. female who presents for Follow-up (Lump on abd-see telephone encounter) and Med Refill (Tramadol--[facility]). Pt finished abx that were sent in she states the lump/redness has improved States its back to baseline, how it always looks Med Refill Current Outpatient Medications on File Prior to Visit Medication Sig Dispense Refill aspirin 325 MG tablet Take 325 mg by mouth in the morning. atorvastatin (Lipitor) 10 MG tablet Take 1 tablet (10 mg) by mouth in the morning. 100 tablet 3 calcium carbonate (Os-King) 1250 (500 Ca) MG tablet every 12 (twelve) hours. gabapentin (Neurontin) 600 MG tablet TABLET 1/2 TABLET BY MOUTH TWICE A DAY AND TAKE 1 TABLET BY MOUTH EVERY DAY AT BEDTIME 180 tablet 3 linaCLOtide (Linzess) 72 MCG capsule Take 1 capsule (72 mcg) by mouth in the morning. Take before meals. Do not crush or chew.. meloxicam (Mobic) 15 MG tablet Take 1 tablet (15 mg) by mouth Daily Take with food 90 tablet 3 Multiple Vitamin (Multi-Vitamin) tablet Take 1 tablet by mouth in the morning. olmesartan-hydroCHLOROthiazide (BENIcar HCT) 20-12.5 MG tablet Take 1 tablet by mouth Daily 100 tablet 3 rOPINIRole (Requip) 0.5 MG tablet TAKE 2 TABLETS BY MOUTH IN THE MORNING AND TAKE 2 TABLETS AT BEDTIME 360 tablet 1 traMADol (Ultram) 50 MG tablet Take 1 tablet (50 mg) by mouth every 6 (six) hours if needed for severe pain 20 tablet 0 ALPRAZolam (Xanax) 0.5 MG tablet Take 1 tablet (0.5 mg) by mouth as needed at bedtime for anxiety 30 tablet 1 [DISCONTINUED] atorvastatin (Lipitor) 10 MG tablet TAKE 1 TABLET BY MOUTH EVERY DAY IN THE MORNING 90 tablet 0 No current facility-administered medications on file prior to visit. I have reviewed and reconciled the history and medication list with the patient today. Allergies Allergen Reactions Amoxicillin-Pot Clavulanate Nausea Only Sulfa Antibiotics Other Reaction(s): itching Social History Tobacco Use Smoking status: Former Current packs/day: 0.00 Average packs/day: 0.5 packs/day for 27.0 years (13.5 ttl pk-yrs) Types: Cigarettes Start date: 07/30/1965 Quit date: 07/22/1992 Years since quittin.8 Smokeless tobacco: Never Vaping Use Vaping status: Never Used Substance Use Topics Alcohol use: Never Comment: caffeine intake: more than 4 cups per day. Drug use: Never Family History Problem Relation Name Age of Onset Cancer Mother Josefina Heart disease Father Gage Past Medical History: Diagnosis Date Arthritis History of being hospitalized 08/24/2023 TIA History of being hospitalized 10/26/2023 Sepsis, Encephalopathy, Pneumonia Hyperlipidemia (CMS/HCC) Hypertension (CMS/HCC) Past Surgical History: Procedure Laterality Date ARTHROPLASTY 2018 CATARACT EXTRACTION SECTION, LOW TRANSVERSE COLONOSCOPY 2013 COLONOSCOPY 12/19/2023 COLONOSCOPY 03/13/2024 Up to Transverse Colon Visualized EGD 2019 esophageal dilatation FOOT SURGERY right foot dr john HERNIA REPAIR IR INJECTION NERVE BLOCK 2020 2021 l4 to s1 and l3-l5 TUBAL LIGATION 1989 UMBILICAL HERNIA REPAIR 1952 Visit Vitals BP 128/74 Pulse 77 Ht 5' 11 Wt 138 lb SpO2 100% BMI 19.25 kg/m Smoking Status Former BSA 1.77 m Review of Systems Objective Physical Exam Constitutional: General: She is not in acute distress. Appearance: Normal appearance. She is well-developed. HENT: Head: Normocephalic and atraumatic. Right Ear: Tympanic membrane and ear canal normal. Left Ear: Tympanic membrane and ear canal normal. Nose: Nose normal. Mouth/Throat: Mouth: Mucous membranes are moist. Pharynx: No posterior oropharyngeal erythema. Eyes: General: No scleral icterus. Extraocular Movements: Extraocular movements intact. Conjunctiva/sclera: Conjunctivae normal. Pupils: Pupils are equal, round, and reactive to light. Cardiovascular: Rate and Rhythm: Normal rate and regular rhythm. Heart sounds: Normal heart sounds. No murmur heard. Pulmonary: Effort: Pulmonary effort is normal. No respiratory distress. Breath sounds: Normal breath sounds. No wheezing, rhonchi or rales. Abdominal: General: Bowel sounds are normal. There is no distension. Palpations: Abdomen is soft. Tenderness: There is no abdominal tenderness. There is no guarding. Musculoskeletal: General: Deformity present. No swelling. Normal range of motion. Cervical back: Normal range of motion and neck supple. No tenderness. Comments: Decreased ROM of both knees due to arthritic changes Skin: General: Skin is warm and dry. Capillary Refill: Capillary refill takes less than 2 seconds. Findings: No rash. Comments: Small follicular cyst near naval Neurological: General: No focal deficit present. Mental Status: She is alert and oriented to person, place, and time. Cranial Nerves: No cranial nerve deficit. Sensory: No sensory deficit. Motor: No weakness. Gait: Gait abnormal. Deep Tendon Reflexes: Reflexes normal. Psychiatric: Mood and Affect: Mood normal. Behavior: Behavior normal. Thought Content: Thought content normal. Judgment: Judgment normal. Assessment/Plan Diagnoses and all orders for this visit: Follicular cyst of skin and subcutaneous tissue Carbuncle and furuncle of trunk Essential hypertension (CMS/HCC) Follow up in about 3 months (around 08/04/2024) for Routine F/U. documented in this encounter [facility] 04-06-2024 Telephone encounter Note Patient came in with for his office visit. During that visit showed me a painful erythematous 2cm subcutaneous nodule left mid/lower abdominal wall. Clinical suspicion of infected follicular cyst vs MRSA carbuncle. Will treat with Bactrim given concern for MRSA, despite history of itching reaction with this med. I discussed this with her and advised she take Benedryl OTC 1 hour prior to each pill. [facility] 04-06-2024 Miscellaneous Notes Patient came in with for his office visit. During that visit showed me a painful erythematous 2cm subcutaneous nodule left mid/lower abdominal wall. Clinical suspicion of infected follicular cyst vs MRSA carbuncle. Will treat with Bactrim given concern for MRSA, despite history of itching reaction with this med. I discussed this with her and advised she take Benedryl OTC 1 hour prior to each pill. documented in this encounter [facility] 09-04-2023 History of Present illness Narrative Subjective Patient ID: Berenice Silva is a 77 y.o. female who presents for Follow-up ([facility] stay admitted 08/24/23 dx: TIA discharged home 08/25/23 advised to take ASA 325mg). Flowsheet Row Telephone from 08/30/2023 in [facility] with Kvng Linton MD Discharge Information ED or Hospital Discharge? Hospital Patient has been contacted within two business days of discharge No Have two attempts been made to contact the patient within two business days of being discharged? No Discharge Date 08/25/23 Discharge Hospital [facility] Discharged To: Home Setting Engagement Call Start [...] THE MORNING 90 tablet 0 [DISCONTINUED] HYDROcodone-acetaminophen (Chenoa) 5-325 MG tablet Take 1 tablet by [...] Past Surgical History: Procedure Laterality Date ARTHROPLASTY 2018 CATARACT EXTRACTION SECTION, LOW TRANSVERSE COLONOSCOPY 2013 EGD 2019 esophageal dilatation FOOT SURGERY right foot dr john HERNIA REPAIR IR INJECTION NERVE BLOCK 2020 [...] for Test/Lab Review. documented in this encounter [facility] 10-22-2022 Note PROCEDURE: XR FOOT R [...] or change in alignment. Electronically authenticated by: HALEIGH FINE Date: 2022-10-22 16:24 [facility] 10-09-2022 Note PROCEDURE: XR FOOT R T [...] authenticated by: AYDEN SERRA Date: 2022-10-09 14:38 [facility] 09-18-2022 Note PROCEDURE: XR FOOT R T [...] authenticated by: AYDEN SERRA Date: 2022-09-18 17:34 [facility] 05-10-2022 Note PROCEDURE: XR FOOT R T 2V COMPARISON: 02/23/2022 HISTORY: Pain FINDINGS: BONES:Stable medial effusion with plates and screws. Stable subtalar fusion. Changing configuration of the lateral sesamoid of the first metatarsal SOFT TISSUES:Negative. No visible soft tissue swelling. EFFUSION:None visible. OTHER: Negative. IMPRESSION: Intraprocedural fluoroscopic images Electronically authenticated by: AYDEN SERRA Date: 2022-05-10 17:33 [facility] 05-10-2022 Note PROCEDURE: XR FOOT R [...] authenticated by: AYDEN SERRA Date: 2022-05-10 17:32 [facility] 02-26-2022 Note PROCEDURE: XR FOOT R [...] authenticated by: AYDEN SERRA Date: 2022-02-26 07:57 [facility] Evaluation note Diagnosis TIA (transient ischemic attack)- Primary Unspecified transient cerebral ischemia Urinary frequency Dyslipidemia (CMS/HCC) Other and unspecified hyperlipidemia Essential hypertension (CMS/HCC) Unspecified essential hypertension [facility] Diagnosis Follicular cyst of skin and subcutaneous tissue- Primary Carbuncle and furuncle of trunk Essential hypertension (CMS/HCC) Unspecified essential hypertension [facility] Diagnosis Primary osteoarthritis, unspecified site [facility] Diagnosis Follicular cyst of skin and subcutaneous tissue- Primary Carbuncle and furuncle of trunk [facility] Diagnosis Primary osteoarthritis, unspecified site [facility] Diagnosis Essential (primary) hypertension (CMS/HCC)- Primary Unspecified essential hypertension Restless legs syndrome (RLS) History of sepsis Personal history of other infectious and parasitic disease Burning sensation Disturbance of skin sensation Vitamin D deficiency Snoring Other dyspnea and respiratory abnormality Apneic episode [facility] Diagnosis Primary osteoarthritis, unspecified site Inflammatory and toxic neuropathy (CMS/HCC) Neurogenic pain [facility] Diagnosis Essential (primary) hypertension (CMS/HCC)- Primary Unspecified essential hypertension Rheumatoid arthritis, unspecified Infected sebaceous gland [facility] Diagnosis Epidermal inclusion cyst- Primary Sebaceous cyst Localized tenderness Other general symptoms [facility] Diagnosis Medicare annual wellness visit, subsequent- Primary ACP (advance care planning) Other specified counseling 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) Lumbar neuritis Neural foraminal stenosis of lumbar spine Neurogenic pain Osteoarthritis of spine with radiculopathy, lumbar region Other chronic pain Restless legs syndrome (RLS) Essential (primary) hypertension Unspecified essential hypertension Racing heart beat Unspecified tachycardia Transient ischemic attack Unspecified transient cerebral ischemia Chronic idiopathic constipation Unspecified constipation Pharyngoesophageal dysphagia Dysphagia, pharyngoesophageal phase Atrophy of nail Other specified disease of nail Cervical paraspinal muscle spasm Spasm of muscle Charcot's joint, right ankle and foot Equinus contracture of right ankle Glenohumeral arthritis Other specified disorders of shoulder joint Primary osteoarthritis, unspecified site Impingement syndrome of right shoulder Degeneration of intervertebral disc of lumbar region with discogenic back pain Lumbar paraspinal muscle spasm Other symptoms referable to back Atrophy of muscle of multiple sites Osteopenia of multiple sites Rheumatoid factor positive Other and unspecified nonspecific immunological findings Other hammer toe(s) (acquired), right foot Polyarthritis Unspecified polyarthropathy or polyarthritis, site unspecified Localized, primary osteoarthritis of ankle or foot, unspecified laterality Primary osteoarthritis of right foot Primary osteoarthritis, right shoulder Lumbar spondylosis Lumbosacral spondylosis without myelopathy Vitamin D deficiency Abnormal blood chemistry Other abnormal blood chemistry Anxiety Anxiety state, unspecified Decreased estrogen level Disorder of sacrum Disorders of sacrum Dyslipidemia Other and unspecified hyperlipidemia Edema, unspecified type History of sepsis Personal history of other infectious and parasitic disease Hyperlipoproteinemia Other and unspecified hyperlipidemia Laryngopharyngeal reflux Acute laryngitis, without mention of obstruction Chronic left-sided low back pain with left-sided sciatica Left sided sciatica Sciatica [facility] Diagnosis Epidermal inclusion cyst- Primary Sebaceous cyst Pain Generalized pain [facility] Consultation (Routine) - Pending Review Specialty Diagnoses / Procedures Referred By Mindy gaitan Referred To Contact Urology Diagnoses Urinary frequency Procedures MA OFFICE/OUTPATIENT [facility]3] 60 MINUTES Kvng Linton MD [address] [facility] [address] [place] [address] Vee Hatfield MD [address] [place] [id number] Referral ID Status Reason Start Date Expiration Date Visits Requested Visits Authorized [id number] Pending Review Specialty Services Required 09/04/2023 03/02/2024 1 1 * Consultation (Routine) - Pending Review Specialty Diagnoses / Procedures Referred By Contac t Referred To Contact Neurology Diagnoses TIA (transient ischemic attack) Procedures MA OFFICE/OUTPATIENT NEW HIGH MDM 60 MINUTES Kvng Linton MD [address] [facility] [address] [place] [address] Damion Longo MD [address] [place] [address] Referral ID Status Reason Start Date Expiration Date Visits Requested Visits Authorized [id number] Pending Review Specialty Services Required 09/04/2023 03/02/2024 1 1 * Imaging (Routine) - Pending Review Specialty Diagnoses / Procedures Referred By Contac t Referred To Contact Cardiology Diagnoses TIA (transient ischemic attack) Procedures Echocardiogram 2D complete Kvng Linton MD [address] [facility] [address] [place] [address] Referral ID Status Reason Start Date Expiration Date Visits Requested Visits Authorized [id number] Pending Review Perform Procedure 09/04/2023 03/02/2024 1 [...] content) DATE CREATED AUTHOR 12/28/2022 [facility] DATE CREATED AUTHOR AUTHOR'S ORGANIZ ATION 09/07/2023 [facility] DATE CREATED AUTHOR AUTHOR'S ORGANIZ ATION 11/01/2023 [facility] DATE CREATED AUTHOR AUTHOR'S ORGANIZ ATION 01/22/2024 [facility] DATE CREATED AUTHOR AUTHOR'S ORGANIZ ATION 02/27/2024 [facility] DATE CREATED AUTHOR AUTHOR'S ORGANIZ ATION 03/15/2024 [facility] DATE CREATED AUTHOR AUTHOR'S ORGANIZ ATION 08/07/2024 [facility] DATE CREATED AUTHOR AUTHOR'S ORGANIZ ATION 03/04/2025 [facility] Care Teams (unrecognized sec tion and content) School Age Program Associate Relationship Specialty Start Date End Date Kvng Linton MD [address] [place] [address] PCP - General Internal Medicine 11/27/22 Kvng Linton MD [address] [place] [address] PCP - Rashid GALVEZ 07/22/23 School Age Program Associate Relationship Specialty Start Date End Date Kvng Linton MD [address] [place] [address] PCP - General Internal Medicine 11/27/22 Kvng Linton MD [address] [place] [address] PCP - Rashid GALVEZ 07/22/23 School Age Program Associate Relationship Specialty Start Date End Date Kvng Linton MD [address] [place] [address] PCP - General Internal Medicine 11/27/22 Kvng Linton MD [address] [place] [address] PCP - Rashid GALVEZ 07/22/23SaturdayElvi LPN [address] [place] [address] Licensed Practical Nurse Family Medicine 02/26/24 School Age Program Associate Relationship Specialty Start Date End Date Kvng Linton MD [address] [place] [address] PCP - General Internal Medicine 11/27/22 Kvng Linton MD [address] [place] [address] PCP - Rashid GALVEZ 07/22/23Saturday, Elvi, REFRIGERATOR [employer]ER [address] [place] [address] Licensed Practical Nurse Family Medicine 02/26/24 School Age Program Associate Relationship Specialty Start Date End Date Kvng Linton MD [address] [place] [address] PCP - General Internal Medicine 11/27/22 Kvng Linton MD [address] [place] [address] PCP - Rashid GALVEZ 07/22/23Saturday, Elvi, REFRIGERATOR [employer] ICER [address] [place] [address] Licensed Practical Nurse Family Medicine 02/26/24 School Age Program Associate Relationship Specialty Start Date End Date Kvng Linton MD [address] [place] [address] PCP - General Internal Medicine 11/27/22 Kvng Linton MD [address] [place] [address] PCP Gay Mike MA 07/22/23Saturday, Elvi, REFRIGERATOR [employer] ICER [address] [place] [address] Licensed Practical Nurse Family Medicine 02/26/24 School Age Program Associate Relationship Specialty Start Date End Date Kvng Linton MD [address] [place] [address] PCP - General Internal Medicine 11/27/22SatRowdyElvi byrd LPN [address] [place] [address] Licensed Practical Nurse Family Medicine 02/26/24 08/28/24 Heydi Parker, RN Licensed Practical Nurse Family Medicine 08/28/24 School Age Program Associate Relationship Specialty Start Date End Date Kvng Linton MD [address] [place] [address] PCP - General Internal Medicine 11/27/22 Heydi Parker, RN Licensed Practical Nurse Family Medicine 08/28/24 School Age Program Associate Relationship Specialty Start Date End Date Kvng Linton MD [address] [place] [address] PCP - General Internal Medicine 11/27/22 Kvng Linton MD [address] [place] [address] PCP - Rashid GALVEZ 07/22/23 Reina Palma LPN 10/06/24 School Age Program Associate Relationship Specialty Start Date End Date Kvng Linton MD [address] [place] [address] PCP - General Internal Medicine 11/27/22 Kvng Linton MD [address] [place] [address] PCP - Rashid GALVEZ 07/22/23 Reina Palma LPN 10/06/24 School Age Program Associate Relationship Specialty Start Date End Date Kvng Linton MD [address] [place] [address] PCP - General Internal Medicine 11/27/22 Kvng Linton MD [address] [place] [address] PCP - Rashid GALVEZ 07/22/23 Reina Palma LPN 10/06/24 School Age Program Associate Relationship Specialty Start Date End Date Kvng Linton MD [address] [place] [address] PCP - General Internal Medicine 11/27/22 Kvng Linton MD [address] [place] [address] PCP - Rashid GALVEZ 07/22/23 Reina Palma LPN 10/06/24 School Age Program Associate Relationship Specialty Start Date End Date Kvng Linton MD [address] [place] [address] PCP - General Internal Medicine 11/27/22 Kvng Linton MD [address] [place] [address] PCP - Rashid GALVEZ 07/22/23 Reina Palma LPN [address] [place] [address] 10/06/24 School Age Program Associate Relationship Specialty Start Date End Date Kvng Linton MD [address] [place] [address] PCP - General Internal Medicine 11/27/22 Kvng Linton MD [address] [place] [address] PCP - Rashid GALVEZ 07/22/23 Reina Palma LPN [address] [place] [address] 10/06/24 School Age Program Associate Relationship Specialty Start Date End Date Kvng Linton MD [address] [place] [address] PCP - General Internal Medicine 11/27/22 Kvng Linton MD [address] [place] [address] PCP - Rashid GALVEZ 07/22/23 Reina Palma LPN [address] [place] [address] 10/06/24 School Age Program Associate Relationship Specialty Start Date End Date Kvng Linton MD [address] [place] [address] PCP - General Internal Medicine 11/27/22 vKng Linton MD [address] [place] [address] PCP - Rashid GALVEZ 07/22/23 Reina Palma LPN [address] [place] [address] 10/06/24 School Age Program Associate Relationship Specialty Start Date End Date Kvng Linton MD [address] [place] [address] PCP - General Internal Medicine 11/27/22 Kvng Linton MD [address] [place] [address] PCP - Rashid GALVEZ 07/22/23 Reina Palma LPN [address] [facility] [address] [place] [address] 10/06/24 Reason for Visit (unrecogniz ed section and content) Reason Comments Follow-up [facility] stay admitted 08/24/23 dx: TIA discharged home 08/25/23 advised to take ASA 325mg Reason Comments Follow-up Lump on abd-see tele phone encounter Med Refill [facility] Reason Onset Date Comments Med Refill 05/08/2024 Reason Onset Date Comments Med Refill 06/30/2024 Reason Comments Med Refill Ropinirole Reason Onset Date Comments Med Refill 09/18/2024 Reason Comments Suspicious Skin Lesion Reason Comments Medicare Annual Wellness Visit Subsequen t Med Refill Ropinirole Back Pain Getting worse and wo uld like to discuss options. She takes Tramadol as needed but not very often - it causes constipation and she already has problems with constipation Reason Comments Excision FOR RECORDS PERTAINING TO PATIENTS WHO ARE [...] BE BASED ON THE PRIMARY CLINICAL RECORDS. [employer] provides no warranty or guarantee of the accuracy or completeness of information in this document.
== END 2025-03-10 09:24 | disposition home or self-care (01) ==
LOC: WC 09:23
PROVIDERS: PCP Internal Medicine; Visit Provider Podiatrist Foot & Ankle Surgery
DX: L97.415 Non-pressure chronic ulcer of right heel and midfoot with muscle involvement without evidence of necrosis (principal)
CPT/HCPCS: 11043

== ENCOUNTER 2025-03-17 11:28 | Outpatient (OUT) | payer MEDICARE, SELFPAY ==
--- OUTSIDE RECORDS SUMMARY | 2025-03-17 12:25 | XMS_ITS | CCD ---
Author Organization [facility] Care Team Providers Care Tack Driller Name Role Phone ANUP PEREZ Attending Unavailable HIGHLANDERANUP Admitting Unavailable LINTON, DR DAWSON Primary Care Unavailable HIGHLANDERANUP Attending Unavailable HIGHLANDER, ANUP Anderson Admitting Unavailable LINTON, DR DAWSON Primary Care Unavailable HIGHLANDERANUP Attending Unavailable HIGHLANDERANUP Admitting Unavailable LINTON, DR DAWSON Primary Care Unavailable LINTON, DR DAWSON Primary Care Unavailable HIGHLANUP HUBBARD Attending Unavailable HIGHLANUP HUBBARD Consulting Unavailable ANUP PEREZ Admitting Unavailable LINTON, DR DAWSON Primary Care [...] DAWSON Primary Care Unavailable HIGHLANDERANUP Attending Unavailable HIGHLHAYDEE, ANUP Anderson Admitting Unavailable [...] Unavailable Kvng Linton MD Primary Care Provider [phone] Kvng Linton MD Unavailable [phone] IRWIN HODGE Attending Unavailable IRWIN HODGE Admitting [...] KVNG LINTON B Primary Care Unavailable Saturday DUPLICATING MACHINE OPERATOR, Elvi Unavailable Saturday DUPLICATING MACHINE OPERATOR, Elvi Unavailable Heydi Parker RN Unavailable Palma DUPLICATING MACHINE OPERATOR, Reina Unavailable Unavailable Palma DUPLICATING MACHINE OPERATOR, Reina Unavailable TSERING CONTE Attending Unavailable GABRIELA GILMAN Attending Unavailable NICKY MORRISSEY Attending Unavailable KATLIN TRIPLETT Attending Unavailable KVNG LINTON Attending Unavailable NICKY MORRISSEY Attending Unavailable Allergies Allergy Classification Reported Allergen(s) Allergy Type Date of Onset Reaction(s) Facility (1 source) Amoxicillin / Clavulanate Drug Allergy [facility] Repository (1 source) Cephalexin Drug Allergy 9 [facility] (1 source) Sulfonamides (Antibiotic) Drug allergy (disorder) [facility] (20 sources) Sulfonamides (Antibiotic) Drug Allergy 3 [facility] (20 sources) Amoxicillin-Pot Clavulanate; Translations: [AMOXICILLIN-POT CLAVULANATE] Drug Allergy 1 Nausea Only [facility] (3 sources) Sulfonamides (Antibiotic); Translations: [SULFA (SULFONAMIDE ANTIBIOTICS)] Propensity to adverse reactions to drug (disorder) 2 [facility] Repository Medications Current Medications Medication Drug Class(es) Dates Sig (Normalized) Sig (Original) acetaminophen 325 mg / HYDROcodone bitartrate 5 mg oral tablet (3 sources) Opioid Agonist Start: 10-22-2022 End: 09-04-2023 take 1 tablet by mouth four times daily as needed HYDROcodone-aceta minophen (Savery) 5-325 MG tablet Take 1 tablet by [...] Discontinued (Other) cholecalciferol 0.05 mg oral tablet (20 sources) Vitamin D take 1 tablet by mouth in the morning cholecalciferol (Vitamin D-3) 50 MCG (2000 UT) tablet Take 1,000 Units by mouth in the morning. Active cloNIDine hydrochloride 0.1 mg oral tablet (15 sources) Central alpha-2 Adrenergic Agonist Start: 11-11-2024 [...] morning. Active mupirocin 0.02 mg/mg topical ointment (5 sources) RNA Synthetase Inhibitor Antibacterial Start: mupirocin [...] Start: 06-17-2023 take 2 tablets by mo [facility] in the morning rOPINIRole (Requip) 0.5 MG [...] [facility] hours as needed traMADol (Ultram) [...] 03-12-2023 Chronic Other aftercare (1 source) Other senior care (current) drug therapy; Translations: [OTH [facility] CURRENT DRUG THERAPY] Onset: 10-31-2022 Episodic Other aftercare (2 sources) Removal of sutures done; Translations: [Encounter for removal of sutures] 03-16-2025 Episodic Other connective tissue disease (1 source) [...] [Epidermal cyst] 12-30-2024 Episodic Other skin disorders (10 sources) Onychoatrophy; Translations: [Nail dystrophy] Onset: 02-23-2025 02-23-2025 Episodic Residual codes; unclassified (1 source) Localized edema; Translations: [LOCALIZED EDEMA] Onset: 2022 Episodic Residual codes; unclassified (2 sources) Tenderness ; Translations: [Pain, unspecified] 12-30-2024 Episodic Residual codes; unclassified (10 sources) Edema; Translations: [Edema, unspecified] Onset: 02-23-2025 [...] Onset: 11-30-2020 03-12-2023 Chronic Transient cerebral ischemia (12 sources) Transient cerebral ischemia; Translations: [Transient cerebral [...] caused by tuberculosis or sexually transmitted disease) (11 sources) Other osteomyelitis, lower leg; Translations: [Other [...] 6.0 ml Estimated blood loss: <1.0 ml [facility] e Complexity: Intermediate Final length (cm): 2.3 [...] uncontrollable bleeding, or complications. Dressing type: bandage [facility] XR FOOT RT MIN 3Von 01-28-[address] [place] [address] XRay Report Signed Patient: BERENICE SILVA MR#: [id number] : 1945 Acct:[id number] Age/Sex: 79 / F ADM Date: 01/27/25 Loc: RAD Attending Dr: Anup Perez D.P.M. Ordering Physician: Anup Perez D.P.M. Date of Service: 01/27/25 Procedure(s): XR foot RT min 3V Accession Number(s): [id number] cc: KVNG LINTON ; Anup Perez D.P.M. The [address] [address] Patient Name: BERENICE SILVA MRN: [facility]:[id number] date: 1945 Sex: F Assigned Patient Location: [facility] Current Patient Location: Accession/Order Number: [id number] Exam Date: 01/27/2025 15:38 Report Date: 01/27/2025 15:41 At the request of: ANUP PEREZ DPNabor Procedure: XR foot RT min 3V [...] Fish M.D. 01/27/2025 3:41 PM Dictation Location: [place] [address] Electronically authenticated by: [id number] Y Date: 01/27/2025 15:41 Dictated By: Lew Fish D.O. Signed By: 01/27/25 1543 DD/ 1541 TD/TT: Salad Bar Clerk: [facility] Radiology, Radiologist, MD - 01/27/2025 [place] [address] XRay Report Signed Patient: BERENICE SILVA MR#: [id number] : 1945 Acct:[id number] Age/Sex: 79 / F ADM Date: 01/27/25 Loc: RAD Attending Dr: Anup Perez D.P.M. Ordering Physician: Anup Perez D.P.M. Date of Service: 01/27/25 Procedure(s): XR foot RT min 3V Accession Number(s): [id number] cc: KVNG LINTON ; Anup Perez D.P.M. [place] [address] Patient Name: BERENICE SILVA MRN: [id number] date: 1945 Sex: F Assigned Patient Location: [facility] Current Patient Location: Accession/Order Number: [id number] Exam Date: 01/27/2025 15:38 Report Date: 01/27/2025 15:41 At the request of: ANUP PEREZ DPM Procedure: XR foot RT min 3V [...] Fish M.D. 01/27/2025 3:41 PM Dictation Location: [place] [address] Electronically authenticated by: [id number] Y Date: 01/27/2025 15:41 Dictated By: Lew Fish D.O. Signed By: 01/27/25 1543 DD/ 1541 TD/TT: Salad Bar Clerk: [facility] Radiology Study observation (narrative) [facility] XR FOOT RT MIN 3VOrdered By: Radiologist Radiology on 01-27-2025 [facility] [employer] Work Phone: CBC (INCLUDES DIFF/PLT)on Basophils (Bld) [#/Vol] 0.053 10*3/uL Normal 0-200 [facility] Comment on above: Performed By: #### 6 399, 8630, 57338 #### [facility] [address], [address] [place] [address] Brake Repair Supervisor: Keagan Holly MD Basophils/100 WBC (Bld) 1.0 % Normal [facility] Comment on above: Performed By: #### 6 399, 7600, 41541 #### [facility] of [place] [address] Brake Repair Supervisor: Keagan Holly MD Eosinophils (Bld) [#/Vol] 0.143 10*3/uL Normal 15-500 [facility] Comment on above: Performed By: #### 6 399, 7600, 62064 #### [facility] of [place] [address] Brake Repair Supervisor: Keagan Holly MD Eosinophils/100 WBC (Bld) 2.7 % Normal [facility] Comment on above: Performed By: #### 6 399, 7600, 69196 #### [facility] [place] [address] Brake Repair Supervisor: Keagan Holly MD Erythrocyte distribution width (RBC) [Ratio] 11.9 % Normal 11.0-15.0 [facility] Comment on above: Performed By: #### 6 399, 7600, 93071 #### [facility] of [place] [address] Brake Repair Supervisor: Keagan Holly MD Hematocrit (Bld) [Volume fraction] 38.1 % Normal 35.0-45.0 [facility] Comment on above: Performed By: #### 6 399, 7600, 17034 #### [facility] of [place] [address] Brake Repair Supervisor: Keagan Holly MD Hemoglobin (Bld) [Mass/Vol] 13.1 g/dL Normal 11.7-15.5 [facility] Comment on above: Performed By: #### 6 399, 7600, 54293 #### [facility] of [place] [address] Brake Repair Supervisor: Keagan Holly MD Lymphocytes (Bld) [#/Vol] 1.988 10*3/uL Normal 850-3900 [facility] Comment on above: Performed By: #### 6 399, 7600, 67849 #### [facility] [place] [address] Brake Repair Supervisor: Keagan Holly MD Lymphocytes/100 WBC (Bld) 37.5 % Normal [facility] Comment on above: Performed By: #### 6 399, 7600, 49644 #### [facility] [place] [address] Brake Repair Supervisor: Keagan Holly MD MCH (RBC) [Entitic mass] 31.3 pg Normal 27.0-33.0 [facility] Comment on above: Performed By: #### 6 399, 7600, 75096 #### [facility] [place] [address] Brake Repair Supervisor: Keagan Holly MD MCHC (RBC) [Mass/Vol] 34.4 [...] condition. Performed By: #### 6 399, 7600, 00533 #### [facility] [place] [address] Brake Repair Supervisor: Keagan Holly MD MCV (RBC) [Entitic vol] 91.1 fL Normal 80.0-100.0 [facility] Comment on above: Performed By: #### 6 399, 7600, 78956 #### [facility] [place] [address] Brake Repair Supervisor: Keagan Holly MD Monocytes (Bld) [#/Vol] 0.392 10*3/uL Normal 200-950 [facility] Comment on above: Performed By: #### 6 399, 7600, 59315 #### [facility] [place] [address] Brake Repair Supervisor: Keagan Holly MD Monocytes/100 WBC (Bld) 7.4 % Normal [facility] Comment on above: Performed By: #### 6 399, 7600, 00578 #### [facility] [place] [address] Brake Repair Supervisor: Keagan Holly MD Neutrophils (Bld) [#/Vol] 2.724 10*3/uL Normal 9511-3940 [facility] Comment on above: Performed By: #### 6 399, 7600, 83896 #### [facility] [place] [address] Brake Repair Supervisor: Keagan Holly MD Neutrophils/100 WBC (Bld) 51.4 % Normal [facility] Comment on above: Performed By: #### 6 399, 7600, 45208 #### [facility] [place] [address] Brake Repair Supervisor: Keagan Holly MD Platelet mean volume (Bld) [Entitic vol] 9.1 fL Normal 7.5-12.5 [facility] Comment on above: Performed By: #### 6 399, 7600, 43660 #### [facility] [place] [address] Brake Repair Supervisor: Keagan Holly MD Platelets (Bld) [#/Vol] 335 10*3/uL Normal 140-400 [facility] Comment on above: Performed By: #### 6 399, 7600, 78360 #### [facility] [place] [address] Brake Repair Supervisor: Keagan Holly MD RBC (Bld) [#/Vol] 4.18 10*6/uL Normal 3.80-5.10 [facility] Comment on above: Performed By: #### 6 399, 7600, 67112 #### [facility] [place] [address] Brake Repair Supervisor: Keagan Holly MD WBC (Bld) [#/Vol] 5.3 10*3/uL Normal 3.8-10.8 [facility] Comment on above: Performed By: #### 6 399, 7600, 41917 #### [facility] of [address], [address] [place] [address] Brake Repair Supervisor: Keagan Holly MD [facility] 08-04-2024 Albumin [Mass/Vol] 4.4 g/dL Normal 3.6-5.1 [facility] Comment on above: Performed By: #### 6 399, 7600, 52464 #### [facility] of [address], [address] [place] [address] Brake Repair Supervisor: Keagan Holly MD Albumin/Globulin [Mass ratio] 1.8 {ratio} Normal 1.0-2.5 [facility] Comment on above: Performed By: #### 6 399, 7600, 47739 #### [facility] [place] [address] Brake Repair Supervisor: Keagan Holly MD ALP [Catalytic activity/Vol] 68 U/L Normal 37-153 [facility] Comment on above: Performed By: #### 6 399, 7600, 17242 #### [facility] [place] [address] Brake Repair Supervisor: Keagan Holly MD ALT [Catalytic activity/Vol] 15 U/L Normal 6-29 [facility] Comment on above: Performed By: #### 6 399, 7600, 83626 #### [facility] [place] [address] Brake Repair Supervisor: Keagan Holly MD AST [Catalytic activity/Vol] 18 U/L Normal 10-35 [facility] Comment on above: Performed By: #### 6 399, 7600, 59817 #### [facility] [place] [address] Brake Repair Supervisor: Keagan Holly MD Bilirubin [Mass/Vol] 0.5 mg/dL Normal 0.2-1.2 [facility] Comment on above: Performed By: #### 6 399, 7600, 74510 #### [facility] of [address] [place] [address] Brake Repair Supervisor: Keagan Holly MD BUN/CREATININE RATIO SEE NOTE: Normal 6-22 [facility] Comment on above: Result Comment: Not Reported: BUN and Creatinine are within reference range. Performed By: #### 6 399, 7600, 10305 #### [facility] of [address], [address] [place] [address] Brake Repair Supervisor: Keagan Holly MD Calcium [Mass/Vol] 9.5 mg/dL Normal 8.6-10.4 [facility] Comment on above: Performed By: #### 6 399, 7600, 65316 #### [facility] [place] [address] Brake Repair Supervisor: Keagan Holly MD Chloride [Moles/Vol] 100 mmol/L Normal 98-110 [facility] Comment on above: Performed By: #### 6 399, 7600, 55685 #### [facility] of [address], [address] [place] [address] Brake Repair Supervisor: Keagan Holly MD CO2 [Moles/Vol] 31 mmol/L Normal 20-32 [facility] Comment on above: Performed By: #### 6 399, 7600, 45509 #### [facility] [place] [address] Brake Repair Supervisor: Keagan Holly MD Creatinine [Mass/Vol] 0.74 mg/dL Normal 0.60-1.00 [facility] Comment on above: Performed By: #### 6 399, 7600, 79162 #### [facility] of [place] [address] Brake Repair Supervisor: Keagan Holly MD GFR/1.73 sq M.predicted among non-blacks MDRD (S/P/Bld) [Vol rate/Area] 84 mL/min/{1.73_m2} Normal > OR = 60 [facility] Comment on above: Performed By: #### 6 399, 7600, 38225 #### [facility] of [address], [address] [place], [place] [address] Brake Repair Supervisor: Keagan Holly MD Globulin (S) [Mass/Vol] 2.5 g/dL Normal 1.9-3.7 [facility] Comment on above: Performed By: #### 6 399, 7600, 26911 #### [facility] [place] [address] Brake Repair Supervisor: Keagan Holly MD Glucose [Mass/Vol] 88 mg/dL Normal 65-99 [facility] Comment on above: Result Comment: Fasting reference interval Performed By: #### 6 399, 7600, 24522 #### [facility] [place] [address] Brake Repair Supervisor: Keagan Holly MD Potassium [Moles/Vol] 4.0 mmol/L Normal 3.5-5.3 [facility] Comment on above: Performed By: #### 6 399, 7600, 28164 #### [facility] [place] [address] Brake Repair Supervisor: Keagan Holly MD Protein [Mass/Vol] 6.9 g/dL Normal 6.1-8.1 [facility] Comment on above: Performed By: #### 6 399, 7600, 32178 #### [facility] [place] [address] Brake Repair Supervisor: Keagan Holly MD Sodium [Moles/Vol] 138 mmol/L Normal 135-146 [facility] Comment on above: Performed By: #### 6 399, 7600, 44571 #### [facility] of [place] [address] Brake Repair Supervisor: Keagan Holly MD Urea nitrogen [Mass/Vol] 16 mg/dL Normal 7-25 [facility] Comment on above: Performed By: #### 6 399, 7600, 45343 #### [facility] [place] [address] Brake Repair Supervisor: Keagan Holly MD LIPID PANEL, [facility] 07-22 Cholesterol [Mass/Vol] 261 mg/dL High <200 [facility] Comment on above: Order Comment: FASTI NG:YES FASTING: YES Performed By: #### 6 399, 7600, 94369 #### [facility] [address], [address] [place] [address] Brake Repair Supervisor: Keagan Holly MD Cholesterol in HDL [Mass/Vol] 66 mg/dL Normal > OR = 50 [facility] Comment on above: Order Comment: FASTI NG:YES FASTING: YES Performed By: #### 6 399, 7600, 48249 #### [facility] [address], [address] [place] [address] Brake Repair Supervisor: Keagan Holly MD Cholesterol in LDL [Mass/Vol] [...] equation in the estimation of LDL-C. Edwin SS et al. LUL. 2013;310(19): 6140-0922 (http://education.[employer]/faq/FVW271) Performed By: #### 6 399, 7600, 99590 #### [facility] [address], [address] [place] [address] Brake Repair Supervisor: Keagan Holly MD Cholesterol.total/C holesterol in HDL [Mass ratio] 4.0 {ratio} Normal <5.0 [facility] Comment on above: Order Comment: FASTI NG:YES FASTING: YES Performed By: #### 6 399, 7600, 16929 #### [facility] [address], [address] [place] [address] Brake Repair Supervisor: Keagan Holly MD NON HDL CHOLESTEROL 195 mg/dL (calc) High <130 [facility] Comment on above: Order Comment: FASTI NG:YES FASTING: YES Result Comment: For patients with diabetes plus 1 major ASCVD risk factor, treating to a non-HDL-C goal of <100 mg/dL (LDL-C of <70 mg/dL) is considered a therapeutic option. Performed By: #### 6 399, 7600, 96346 #### [facility] [address], [address] [place], [place] [id number] Brake Repair Supervisor: Keagan Holly MD Triglyceride [Mass/Vol] 181 mg/dL High <150 [facility] Comment on above: Order Comment: FASTI NG:YES FASTING: YES Performed By: #### 6 399, 7600, 77245 #### [facility] [address], [address] [place] [address] Brake Repair Supervisor: Keagan Holly MD VITAMIN D,25-OH,TOTAL,IAon 0 08-04-2024 [...] D, (D2,D3), LC/MS/MS is recommended: order code 64626 (patients >2yrs). See Note 1 Note 1 For additional information, please refer to http://education.[employer] (CAP)/faq/XDB865 (This link is being provided for informational/ educational purposes only.) Performed By: #### 6 399, 7600, 25586 #### [facility] [address], [address] [place] [phone] Brake Repair Supervisor: Keagan Holly MD CT COLONOGRAPHY SCREENINGon 01-21-2024 [...] presence or absence of which will not foreign exchange services manager of the patient. In addition, digital rectal [...] Curry MD on 01/21/2024 8:17 AM Normal [facility] Cult,Bloodon 10-31-2023 Cult,Blood Specimen Description .BLOOD Special Requests 20ML RAC Culture NO GROWTH 5 DAYS Report Status FINAL 10/31/2023 Normal [facility] Comment on above: Performed By: #### B C #### [facility] [address] [place], [place] [id number] Baker Paint: Ayden Regan MD Cult,Blood Specimen Description .BLOOD Special Requests 20ML LFT WRIST Culture NO GROWTH 5 DAYS Report Status FINAL 10/31/2023 Normal [facility] Comment on above: Performed By: #### B C #### [facility] [address] [place], [place] [id number] Baker Paint: Ayden Regan MD CBC with Diffon 10-27-2023 Abs. Basophil 0.03 k/uL Normal 0.00-0.20 [facility] Comment on above: Performed By: #### L ACDS #### [address] [place], [place] [id number] Baker Paint: Ayden Regan MD Abs.Imm.Granulocyte 0.03 k/uL Normal 0.00-0.30 [facility] Comment on above: Performed By: #### L ACDS #### [address] [place], [place] [id number] Baker Paint: Ayden Regan MD Abs.Neutrophil (Seg) 7.25 k/uL Normal 1.50-8.10 [facility] Comment on above: Performed By: #### L ACDS #### [address] [place] [address] [employer] Paint: Ayden Regan MD Basophils/100 WBC (Bld) 0 % Normal 0-2 [facility] Comment on above: Performed By: #### L ACDS #### [address] [place], [place] [id number] Baker Paint: Ayden Regan MD Eosinophils (Bld) [#/Vol] 0.04 10*3/uL Normal 0.00-0.44 [facility] Comment on above: Performed By: #### L ACDS #### [address] [place], [place] [phone] Baker Paint: Ayden Regan MD Eosinophils/100 WBC (Bld) 0 % Low 1-4 [facility] Comment on above: Performed By: #### L ACDS #### [address] [place], [place] [phone] Baker Paint: Ayden Regan MD Erythrocyte distribution width (RBC) [Ratio] 12.5 % Normal 11.8-14.4 [facility] Comment on above: Performed By: #### L ACDS #### [address] [place], [place] [id number] Baker Paint: Ayden Regan MD Hematocrit (Bld) [Volume fraction] 29.2 % Low 36.3-47.1 [facility] Comment on above: Performed By: #### L ACDS #### [address] [place], [place] [id number] Baker Paint: Ayden Regan MD Hemoglobin (Bld) [Mass/Vol] 9.7 g/dL Low 11.9-15.1 [facility] Comment on above: Performed By: #### L ACDS #### [address] [place], [place] [id number] Baker Paint: Ayden Regan MD Immature granulocytes/100 WBC (Bld) 0 % Normal 0 [facility] Comment on above: Performed By: #### L ACDS #### [address] [place], [place] [id number] Baker Paint: Ayden Regan MD Lymphocytes (Bld) [#/Vol] 1.83 10*3/uL Normal 1.10-3.70 [facility] Comment on above: Performed By: #### L ACDS #### [address] [place], [place] [phone] Baker Paint: Ayden Regan MD Lymphocytes/100 WBC (Bld) 18 % Low 24-43 [facility] Comment on above: Performed By: #### L ACDS #### [facility] [address] [place], [facility]83 Baker Paint: Ayden Regan MD MCH (RBC) [Entitic mass] 30.1 pg Normal 25.2-33.5 [facility] Comment on above: Performed By: #### L ACDS #### [facility] [address] [place], [facility]83 Baker Paint: Ayden Regan MD MCHC (RBC) [Mass/Vol] 33.2 g/dL Normal 28.4-34.8 [facility] Comment on above: Performed By: #### L ACDS #### [address] [place], [facility]83 Baker Paint: Ayden Regan MD MCV (RBC) [Entitic vol] 90.7 fL Normal 82.6-102.9 [facility] Comment on above: Performed By: #### L ACDS #### [address] [place], [facility]83 Baker Paint: Ayden Regan MD Monocytes (Bld) [#/Vol] 1.02 10*3/uL Normal 0.10-1.20 [facility] Comment on above: Performed By: #### L ACDS #### [facility] [address] [place] [address] Dr[place], [facility] Baker Paint: Ayden Regan MD Monocytes/100 WBC (Bld) 10 % Normal 3-12 [facility] Comment on above: Performed By: #### L ACDS #### [address] [place], [facility]83 Baker Paint: Ayden Regan MD Neutrophil (Seg) 71 % High 36-65 [facility] Comment on above: Performed By: #### L ACDS #### [facility] [address] [place], [place] [phone] Baker Paint: Ayden Regan MD NRBC Automated 0.0 per 100 WBC Normal 0.0 [facility] Comment on above: Performed By: #### L ACDS #### [facility] [address] [place], [place] [phone] Baker Paint: Ayden Regan MD Platelet mean volume (Bld) [Entitic vol] 8.7 fL Normal 8.1-13.5 [facility] Comment on above: Performed By: #### L ACDS #### [address] [place], [facility] Baker Paint: Ayden Regan MD Platelets (Bld) [#/Vol] 237 10*3/uL Normal 138-453 [facility] Comment on above: Performed By: #### L ACDS #### [address] [place], [facility] Baker Paint: Ayden Regan MD RBC (Bld) [#/Vol] 3.22 10*6/uL Low 3.95-5.11 [facility] Comment on above: Performed By: #### L ACDS #### [address] [place], [facility]83 Baker Paint: Ayden Regan MD WBC (Bld) [#/Vol] 10.2 10*3/uL Normal 3.5-11.3 [facility] Comment on above: Performed By: #### L ACDS #### [address] [place], [place] [id number] Baker Paint: Ayden Regan MD Comp Metabolic Pr/rfx MGon 0 10-27-2023 Albumin [Mass/Vol] 3.1 g/dL Low 3.5-5.2 [facility] Comment on above: Performed By: #### L ACDS #### [address] [place], [facility]83 Baker Paint: Ayden Regan MD Albumin/Glob Ratio 1.3 Normal 1.0-2.5 [facility] Comment on above: Performed By: #### L ACDS #### [facility] [address] [place], [place] [id number] Baker Paint: Ayden Regan MD Alkaline Phos 80 U/L Normal 35-104 [facility] Comment on above: Performed By: #### L ACDS #### [facility] [address] [place], [place] [id number] Baker Paint: Ayden Regan MD ALT [Catalytic activity/Vol] 9 U/L Normal 5-33 [facility] Comment on above: Performed By: #### L ACDS #### [facility] [address] [place], [place] [phone] Baker Paint: Ayden Regan MD Anion gap [Moles/Vol] 8 mmol/L Low 9-17 [facility] Comment on above: Performed By: #### L ACDS #### [facility] [address] [place], [place] [phone] [employer]: Ayden Regan MD AST [Catalytic activity/Vol] 13 U/L Normal <32 [facility] Comment on above: Performed By: #### L ACDS #### [facility] [address] [place], [place] [phone] [employer] Paint: Ayden Regan MD Bilirubin [Mass/Vol] 0.6 mg/dL Normal 0.3-1.2 [facility] Comment on above: Performed By: #### L ACDS #### [facility] [address] [place] [address] [employer] Paint: Ayden Regan MD BUN/CRE Ratio 16 Normal 9-20 [facility] Comment on above: Performed By: #### L ACDS #### [facility] [address] [place], [place] [phone] [employer]: Ayden Regan MD Calcium [Mass/Vol] 8.2 mg/dL Low 8.6-10.4 [facility] Comment on above: Performed By: #### L ACDS #### [facility] [address] [place] [phone] [employer] Paint: Ayden Regan MD Chloride [Moles/Vol] 106 mmol/L Normal 98-107 [facility] Comment on above: Performed By: #### L ACDS #### [facility] [address] [place] [phone] Baker Paint: Ayden Regan MD CO2 [Moles/Vol] 26 mmol/L Normal 20-31 [facility] Comment on above: Performed By: #### L ACDS #### [facility] [address] [place], [place] [phone] Baker Paint: Ayden Regan MD Creatinine [Mass/Vol] 0.7 mg/dL Normal 0.5-0.9 [facility] Comment on above: Performed By: #### L ACDS #### [facility] [address] [place], [place] [phone] Baker Paint: Ayden Regan MD GFR/1.73 sq M.predicted among non-blacks MDRD (S/P/Bld) [Vol rate/Area] mL/min/{1.73_m2} Normal >60 [facility] Comment on above: Result Comment: These results [...] secretion. Performed By: #### L ACDS #### [facility] [address] [place] [phone] [employer] Paint: Ayden Regan MD Glucose [Mass/Vol] 97 mg/dL Normal 70-99 [facility] Comment on above: Performed By: #### L ACDS #### [facility] [address] [place] [address] Dr[address] [place], [place] [phone] Baker Paint: Ayden Regan MD Potassium [Moles/Vol] 3.6 mmol/L Low 3.7-5.3 [facility] Comment on above: Performed By: #### L ACDS #### [facility] [address] [place] [address] Dr. [place], [place] [phone] Baker Paint: Ayden Regan MD Protein [Mass/Vol] 5.4 g/dL Low 6.4-8.3 [facility] Comment on above: Performed By: #### L ACDS #### [facility] [address] [place] [address] Dr[address] [place], [place] [phone] Baker Paint: Ayden Regan MD Sodium [Moles/Vol] 140 mmol/L Normal 135-144 [facility] Comment on above: Performed By: #### L ACDS #### [address] [place] [address] [employer] Paint: Ayden Regan MD Urea nitrogen [Mass/Vol] 11 mg/dL Normal 8-23 [facility] Comment on above: Performed By: #### L ACDS #### [facility] [address] [place] [address] Dr[address] [place], [place] [phone] Baker Paint: Ayden Regan MD Cult,Urineon 10-27-2023 Cult,Urine Specimen Description .URINE,STRAIGHT CATHETER Culture STREPTOCOCCI, BETA HEMOLYTIC GROUP B 10 to 50,000 CFU/ML Report Status FINAL 10/27/2023 Normal [facility] Comment on above: Performed By: #### U RC #### [address] [address] Baker Paint: Nahum Nixon MD [facility] [address] [place] [address] [place] [address] Baker Paint: Ayden Regan MD Procalcitoninon 10-27-2023 Procalcitonin 0.06 ng/mL Normal 0.00-0.09 [facility] Comment on above: Result Comment: Suspected Sepsis: [...] entered into the Change in Procalcitonin Calculator ([email or web address]) to determine the patient's Mortality Risk Prognosis In healthy neonates, plasma Procalcitonin (PCT) concentrations increase gradually after , reaching peak values at about 24 hours of age then decrease to normal values below 0.5 ng/mL by 48-72 hours of age. Performed By: #### P RCAL #### [facility] [place], [place] [id number] Baker Paint: Nahum Nixon MD CBC with Diffon 10-26-2023 Abs. Basophil 0.04 k/uL Normal 0.00-0.20 [facility] Comment on above: Performed By: #### T BRETT MELENDEZ, CP #### [address] [place] [address] [employer]: Ayden Regan MD Abs.Imm.Granulocyte 0.04 k/uL Normal 0.00-0.30 [facility] Comment on above: Performed By: #### T BRETT MELENDEZ, CP #### [address] [place] [address] [employer]: Ayden Regan MD Abs.Neutrophil (Seg) 9.87 k/uL High 1.50-8.10 [facility] Comment on above: Performed By: #### BRETT ALMANZA, CP #### [address] [place] [address] [employer] Paint: Ayden Regan MD Basophils/100 WBC (Bld) 0 % Normal 0-2 [facility] Comment on above: Performed By: #### BRETT ALMANZA, CP #### [address] [place], [place] [phone] [employer]: Ayden Regan MD Eosinophils (Bld) [#/Vol] 0.06 10*3/uL Normal 0.00-0.44 [facility] Comment on above: Performed By: #### BRETT ALMANZA, CP #### [address] [place], [place] [phone] [employer]: Ayden Regan MD Eosinophils/100 WBC (Bld) 1 % Normal 1-4 [facility] Comment on above: Performed By: #### BRETT ALMANZA, CP #### [address] [place], [place] [phone] Baker Paint: Ayden Regan MD Erythrocyte distribution width (RBC) [Ratio] 12.1 % Normal 11.8-14.4 [facility] Comment on above: Performed By: #### BRETT ALMANZA, CP #### [address] [place], [place] [phone] Baker Paint: Ayden Regan MD Hematocrit (Bld) [Volume fraction] 37.2 % Normal 36.3-47.1 [facility] Comment on above: Performed By: #### BRETT ALMANZA, CP #### [address] [place] [address] [employer] Paint: Ayden Regan MD Hemoglobin (Bld) [Mass/Vol] 12.6 g/dL Normal 11.9-15.1 [facility] Comment on above: Performed By: #### BRETT ALMANZA, CP #### [facility] [address] [place] [address] Dr[place], [place] [phone] Baker Paint: Ayden Regan MD Immature granulocytes/100 WBC (Bld) 0 % Normal 0 [facility] Comment on above: Performed By: #### BRETT ALMANZA, CP #### [address] [place], [place] [phone] Baker Paint: Ayden Regan MD Lymphocytes (Bld) [#/Vol] 0.81 10*3/uL Low 1.10-3.70 [facility] Comment on above: Performed By: #### BRETT ALMANZA, CP #### [address] [place], [facility]83 Baker Paint: Ayden Regan MD Lymphocytes/100 WBC (Bld) 7 % Low 24-43 [facility] Comment on above: Performed By: #### BRETT ALMANZA, CP #### [address] [place], [place] [phone] [employer]: Ayden Regan MD MCH (RBC) [Entitic mass] 30.4 pg Normal 25.2-33.5 [facility] Comment on above: Performed By: #### BRETT ALMANZA, CP #### [address] [place], [place] [phone] Baker Paint: Ayden Regan MD MCHC (RBC) [Mass/Vol] 33.9 g/dL Normal 28.4-34.8 [facility] Comment on above: Performed By: #### BRETT ALMANZA, CP #### [address] [place] [address] [employer] Paint: Ayden Regan MD MCV (RBC) [Entitic vol] 89.9 fL Normal 82.6-102.9 [facility] Comment on above: Performed By: #### BRETT ALMANZA, CP #### [facility] [address] [place] [address] [employer] Paint: Ayden Regan MD Monocytes (Bld) [#/Vol] 0.89 10*3/uL Normal 0.10-1.20 [facility] Comment on above: Performed By: #### BRETT ALMANZA, CP #### [facility] [address] [place], [facility]83 Baker Paint: Ayden Regan MD Monocytes/100 WBC (Bld) 8 % Normal 3-12 [facility] Comment on above: Performed By: #### BRETT ALMANZA, CP #### [address] [place], [facility]83 Baker Paint: Ayden Regan MD Neutrophil (Seg) 84 % High 36-65 [facility] Comment on above: Performed By: #### BRETT ALMANZA, CP #### [address] [place], [facility] Baker Paint: Ayden Regan MD NRBC Automated 0.0 per 100 WBC Normal 0.0 [facility] Comment on above: Performed By: #### BRETT ALMANZA, CP #### [address] [place], [facility]83 Baker Paint: Ayden Regan MD Platelet mean volume (Bld) [Entitic vol] 8.5 fL Normal 8.1-13.5 [facility] Comment on above: Performed By: #### BRETT ALMANZA, CP #### [facility] [address] [place] [address] [employer] Paint: Ayden Regan MD Platelets (Bld) [#/Vol] 312 10*3/uL Normal 138-453 [facility] Comment on above: Performed By: #### T BRETT MELENDEZ, CP #### [facility] [address] [place] [address] [employer] Paint: Ayden Regan MD RBC (Bld) [#/Vol] 4.14 10*6/uL Normal 3.95-5.11 [facility] Comment on above: Performed By: #### T BRETT MELENDEZ, CP #### [facility] [address] [place] [phone] Baker Paint: Ayden Regan MD WBC (Bld) [#/Vol] 11.7 10*3/uL High 3.5-11.3 [facility] Comment on above: Performed By: #### T BRETT MELENDEZ, CP #### [facility] [address] [place] [phone] Baker Paint: Ayden Regan MD CT HEAD WO CONTRASTon [...] Seven Moreno MD 10/26/23 Final result Normal [facility] Comp Metabolic Profon 2023 Albumin [Mass/Vol] 3.9 g/dL Normal 3.5-5.2 [facility] Comment on above: Performed By: #### T BRETT MELENDEZ, CP #### [facility] [address] [place], [place] [phone] Baker Paint: Ayden Regan MD Albumin/Glob Ratio 1.2 Normal 1.0-2.5 [facility] Comment on above: Performed By: #### T BRETT MELENDEZ, CP #### [facility] [address] [place], [place] [phone] [employer]: Ayden Regan MD Alkaline Phos 87 U/L Normal 35-104 [facility] Comment on above: Performed By: #### BRETT ALMANZA, CP #### [address] [place], [place] [phone] [employer] Paint: Ayden Regan MD ALT [Catalytic activity/Vol] 12 U/L Normal 5-33 [facility] Comment on above: Performed By: #### BRETT ALMANZA, CP #### [address] [place], [place] [phone] [employer] Paint: Ayden Regan MD Anion gap [Moles/Vol] 9 mmol/L Normal 9-17 [facility] Comment on above: Performed By: #### BRETT ALMANZA, CP #### [facility] [address] [place] [address] [place], [place] [phone] Baker Paint: Ayden Regan MD AST [Catalytic activity/Vol] 15 U/L Normal <32 [facility] Comment on above: Performed By: #### BRETT ALMANZA, CP #### [facility] [address] [place] [address] Dr[place], [place] [phone] Baker Paint: Ayden Regan MD Bilirubin [Mass/Vol] 0.4 mg/dL Normal 0.3-1.2 [facility] Comment on above: Performed By: #### BRETT ALMANZA, CP #### [facility] [address] [place], [place] [phone] Baker Paint: Ayden Regan MD BUN/CRE Ratio 16 Normal 9-20 [facility] Comment on above: Performed By: #### BRETT ALMANZA, CP #### [facility] [address] [place], [place] [phone] Baker Paint: Ayden Regan MD Calcium [Mass/Vol] 9.2 mg/dL Normal 8.6-10.4 [facility] Comment on above: Performed By: #### T BRETT MELENDEZ, CP #### [facility] [address] [place], [place] [phone] Baker Paint: Ayden Regan MD Chloride [Moles/Vol] 95 mmol/L Low 98-107 [facility] Comment on above: Performed By: #### BRETT ALMANZA, CP #### [facility] [address] [place] [address] [place], [place] [phone] Baker Paint: Ayden Regan MD CO2 [Moles/Vol] 26 mmol/L Normal 20-31 [facility] Comment on above: Performed By: #### BRETT ALMANZA, CP #### [facility] [address] [place] [address] Dr[place], [place] [phone] Baker Paint: Ayden Regan MD Creatinine [Mass/Vol] 0.8 mg/dL Normal 0.5-0.9 [facility] Comment on above: Performed By: #### BRETT ALMANZA, CP #### [facility] [address] [place] [address] Baker Paint: Ayden Regan MD GFR/1.73 sq M.predicted among non-blacks MDRD (S/P/Bld) [Vol rate/Area] 77 mL/min/{1.73_m2} Normal >60 [facility] Comment on above: Result Comment: These results [...] affects renal tubular secretion. Performed By: #### BRETT ALMANZA, CP #### [facility] [address] [place] [address] Dr[place], [place] [phone] Baker Paint: Ayden Regan MD Glucose [Mass/Vol] 119 mg/dL High 70-99 [facility] Comment on above: Performed By: #### BRETT ALMANZA, CP #### [address] [place], [place] [phone] Baker Paint: Ayden Regan MD Potassium [Moles/Vol] 3.8 mmol/L Normal 3.7-5.3 [facility] Comment on above: Performed By: #### BRETT ALMANZA, CP #### [address] [place], [place] [phone] Baker Paint: Ayden Regan MD Protein [Mass/Vol] 7.2 g/dL Normal 6.4-8.3 [facility] Comment on above: Performed By: #### BRETT ALMANZA, CP #### [address] [place], [place] [phone] Baker Paint: Ayden Regan MD Sodium [Moles/Vol] 130 mmol/L Low 135-144 [facility] Comment on above: Performed By: #### BRETT ALMANZA, CP #### [address] [place], [place] [phone] Baker Paint: Ayden Regan MD Urea nitrogen [Mass/Vol] 13 mg/dL Normal 8-23 [facility] Comment on above: Performed By: #### BRETT ALMANZA, CP #### [address] [place] [phone] Baker Paint: Ayden Regan MD Lactate, Sepsison 10-26-2023 Lactic Acid, Sepsis 1.0 mmol/L Normal 0.5-1.9 [facility] Comment on above: Performed By: #### L ACDS #### [facility] [address] [place], [place] [phone] Baker Paint: Ayden Regan MD Lactic Acid, Sepsis 1.6 mmol/L Normal 0.5-1.9 [facility] Comment on above: Performed By: #### L ACDS #### [facility] [address] [place] [phone] Baker Paint: Ayden Regan MD Troponinon 10-26-2023 Troponin, High Sens 12 ng/L Normal 0-14 [facility] Comment on above: Result Comment: High Sensitivity Troponin values cannot be compared with other Troponin methodologies. Performed By: #### L ACDS #### [address] [place], [place] [phone] Baker Paint: Ayden Regan MD Troponin, High Sens 12 ng/L Normal 0-14 [facility] Comment on above: Result Comment: High Sensitivity Troponin values cannot be compared with other Troponin methodologies. Performed By: #### T ROPI, CDP, CP #### [facility] [address] [place] [address] Dr[place] [phone] Baker Paint: Ayden Regan MD Urinalysis w/ Microon 2023 Bilirubin, SemiQt,Ur Negative Normal NEG [facility] Comment on above: Performed By: #### L ACDS #### [address] [place], [place] [phone] Baker Paint: Ayden Regan MD Blood, Urine Negative Normal NEG [facility] Comment on above: Performed By: #### L ACDS #### [facility] [address] [place] [address] Baker Paint: Ayden Regan MD Clarity (U) Clear Normal CLEAR [facility] Comment on above: Performed By: #### L ACDS #### [facility] [address] [place], [place] [phone] Baker Paint: Ayden Regan MD Color (U) Yellow Normal YEL [facility] Comment on above: Performed By: #### L ACDS #### [facility] [address] [place], [place] [phone] Baker Paint: Ayden Regan MD Epithelial cells LM Ql (Urine sed) 0 TO 2 Normal 0-25 [facility] Comment on above: Performed By: #### L ACDS #### [facility] [address] [place] [address] [place], [place] [phone] Baker Paint: Ayden Regan MD Glucose Ql (U) Negative Normal NEG [facility] Comment on above: Performed By: #### L ACDS #### [facility] [address] [place] [address] [place], [place] [phone] Baker Paint: Ayden Regan MD Ketones Ql (U) Negative Normal NEG [facility] Comment on above: Performed By: #### L ACDS #### [facility] [address] [place] [address] [place], [place] [phone] Baker Paint: Ayden Regan MD Leukocyte esterase Test strip Ql (U) Negative Normal NEG [facility] Comment on above: Performed By: #### L ACDS #### [facility] [address] [place], [place] [phone] Baker Paint: Ayden Regan MD Nitrite,Ur Negative Normal NEG [facility] Comment on above: Performed By: #### L ACDS #### [facility] [address] [place], [place] [phone] Baker Paint: Ayden Regan MD PH,Ur 6.5 Normal 5.0-9.0 [facility] Comment on above: Performed By: #### L ACDS #### [facility] [address] [place], [place] [phone] Baker Paint: Ayden Regan MD Protein Ql (U) Negative Normal NEG [facility] Comment on above: Performed By: #### L ACDS #### [facility] [address] [place] [address] Baker Paint: Ayden Regan MD Spec. Potwin,Ur 1.010 Normal 1.010-1.020 [facility] Comment on above: Performed By: #### L ACDS #### [facility] [address] [place] [address] [place], [place] [phone] Baker Paint: Ayden Regan MD Urine RBC's None Normal 0-2 [facility] Comment on above: Performed By: #### L ACDS #### [facility] [address] [place] [address] Baker Paint: Ayden Regan MD Urine WBC's None Normal 0-5 [facility] Comment on above: Performed By: #### L ACDS #### [facility] [address] [place] [address] [place], [place] [phone] Baker Paint: Ayden Regan MD Urobilinogen,Ur Normal Normal 0.0-1.0 [facility] Comment on above: Performed By: #### L ACDS #### [facility] [address] [place] [address] Dr[place], [place] [phone] Baker Paint: Ayden Regan MD XR CHEST PORTABLEon 10-26-19 [...] Ayden Siegel MD 10/26/23 Final result Normal [facility] ACID FAST SMEAR AND CXon Acid Fast Culture Negative Normal [facility] Comment on above: Result Comment: No a broderick fast bacilli isolated after 6 weeks. Performed By: #### A FB #### [facility] [address] [place] [address] Dr. Shari Allen Acid Fast Smear Negative Normal [facility] Comment on above: Performed By: #### A FB #### [facility] [address] [place] [address] Dr. Shari Allen [employer] Specimen Processing Concentration Normal [facility] Comment on above: Performed By: #### A FB #### [facility] [address] [place] [address] Dr. Shari Allen FUNGAL CULTUREon 2022 Fungus (Mycology) Culture Final report [facility] Comment on above: Performed By: #### C XFUN #### [facility] [address] [place] [address] Dr. Shari Allen Fungus Stain Final report Normal [facility] Comment on above: Performed By: #### C XFUN #### [facility] [address] [place] [address] Dr. Shari Allen Result 1 Comment Normal [facility] Comment on above: Result Comment: CHINO/ Calcofluor preparation: no fungus observed. Performed By: #### C XFUN #### [facility] [address] [place] [address] Dr. Shari Allen Result Comment: No y east or mold isolated after 4 weeks. CULTURE ANAEROBICon 10-23-19 23 CULTURE ANAEROBIC Culture Observations : NO GROWTH OF ANAEROBES AT 72 HOURS. Normal [facility] Comment on above: Performed By: #### C XFUN #### [facility] [address] [place] [address] Dr. Shari Allen CULTURE OTHERon 10-22-2022 CULTURE OTHER Culture Observations : Light growth of NORMAL SKIN MARTHA. Culture Observations: NO GROWTH OF ANAEROBES AT 72 HOURS. Normal [facility] Comment on above: Performed By: #### C XFUN #### [facility] [address] [address] [address] Shari Allen GRAM STAINon 10-22-2022 COMMENTS NO ORGANISMS OBSERVED Normal [facility] Comment on above: Performed By: #### G STAIN #### [facility] [address] [address] [address] Shari Allen DIPHTHEROIDS [facility] Comment on above: Performed By: #### G STAIN #### [facility] [address] [address] [address] Shari Allen EPITHELIALS [facility] Comment on above: Performed By: #### G STAIN #### [facility] [address] [address] [address] Shari Allen FUNGAL ELEMENTS Normal [facility] Comment on above: Performed By: #### G STAIN #### [facility] [address] [address] [address] Shari YEPEZ NEG BACILLI Normal [facility] Comment on above: Performed By: #### G STAIN #### [facility] [address] [place] [address] Dr. Shari YEPEZ NEG DIPPLOCOCCI [facility] Comment on above: Performed By: #### G STAIN #### [facility] [address] [address] [address] Shari YEPEZ POS BACILLI Normal [facility] Comment on above: Performed By: #### G STAIN #### [facility] [address] [address] [address] Shari Allen GRAM POSITIVE COCCI Normal [facility] Comment on above: Performed By: #### G STAIN #### [facility] [address] [address] [address] Shari Allen GRAM STAIN SOURCE Rt 2nd Toe Normal [facility] Comment on above: Performed By: #### G STAIN #### [facility] [address] [place] [address] Dr. Shari Allen GS_DIPTH Normal [facility] Comment on above: Performed By: #### G STAIN #### [facility] [address] [place] [address] Dr. Shari Allen WBC RARE Normal [facility] Comment on above: Performed By: #### G STAIN #### [facility] [address] [place] [address] Dr. Shari Allen POINT OF CARE GLUCOSEon 04-0 Glucose [Mass/Vol] 109 mg/dL Critically high 74-106 [facility] Comment on above: Performed By: #### P OCGLUC #### [facility] [address] [place] [address] Dr. Shari Allen Glucose [Mass/Vol] 89 mg/dL Normal 74-106 [facility] Comment on above: Performed By: #### P OCGLUC #### [facility] [address] [place] [address] Dr. Shari Allen PROF CHEM 8 (BAS METB)on Anion gap [Moles/Vol] 12.2 mmol/L Normal [facility] Comment on above: Performed By: #### B MP #### [facility] [address] [place] [address] Dr. Shari Allen Calcium [Mass/Vol] 9.3 mg/dL Normal 8.5-10.1 [facility] Comment on above: Performed By: #### B MP #### [facility] [address] [place] [address] Dr. Shari Allen Chloride [Moles/Vol] 104 mmol/L Normal 98-107 [facility] Comment on above: Performed By: #### B MP #### [facility] [address] [place] [address] Dr. Shari Allen CO2 [Moles/Vol] 28.5 mmol/L Normal 21.0-32.0 [facility] Comment on above: Performed By: #### B MP #### [facility] [address] [place] [address] Dr. Shari Allen Creatinine [Mass/Vol] 0.83 mg/dL Normal 0.55-1.02 [facility] Comment on above: Performed By: #### B MP #### [facility] [address] [address] [address] Shari Allen EGFR-AF INDONESIAN >60 Normal >=60 [facility] Comment on above: Performed By: #### B MP #### [facility] [address] [address] [address] Shari Allen EGFR-NON AF INDONESIAN >60 Normal >=60 [facility] Comment on above: Performed By: #### B MP #### [facility] [address] [address] [address] Shari Allen Glucose [Mass/Vol] 89 mg/dL Normal 74-106 [facility] Comment on above: Performed By: #### B MP #### [facility] [address] [address] [address] Shari Allen Potassium [Moles/Vol] 3.7 mmol/L Normal 3.5-5.1 [facility] Comment on above: Performed By: #### B MP #### [facility] [address] [place] [address] Dr. Shari Allen Sodium [Moles/Vol] 141 mmol/L Normal 136-145 [facility] Comment on above: Performed By: #### B MP #### [facility] [address] [address] [address] Shari Allen Urea nitrogen [Mass/Vol] 18.0 mg/dL Normal 7.0-18.0 [facility] Comment on above: Performed By: #### B MP #### [facility] [address] [address] [address] Shari Allen Urea nitrogen/Creatinine [Mass ratio] 21.7 mg/mg Normal [facility] Comment on above: Performed By: #### B MP #### [facility] [address] [place] [address] Dr. Shari Allen POINT OF CARE GLUCOSEon 04-22 Glucose [Mass/Vol] 86 mg/dL Normal 74-106 [facility] Comment on above: Performed By: #### P OCGLUC #### [facility] [address] [place] [address] Dr. Shari Allen Glucose [Mass/Vol] 95 mg/dL Normal 74-106 [facility] Comment on above: Performed By: #### P OCGLUC #### [facility] [address] [place] [address] Dr. Shari Allen CBC AUTO DIFFon 05-07-2022 BASO # 0.0 103/ul Normal 0.0-0.1 [facility] Comment on above: Performed By: #### C BC #### [facility] [address] [place] [address] Dr. Shari Allen Basophils/100 WBC (Bld) 0.5 % Normal 0.2-2.0 [facility] Comment on above: Performed By: #### C BC #### [facility] [address] [place] [address] Dr. Shari Allen EO # 0.2 103/ul Normal 0.0-0.7 [facility] Comment on above: Performed By: #### C BC #### [facility] [address] [place] [address] Dr. Shari Allen Eosinophils/100 WBC (Bld) 2.9 % Normal 0.9-7.0 [facility] Comment on above: Performed By: #### C BC #### [facility] [address] [place] [address] Dr. Shari Allen Erythrocyte distribution width (RBC) [Ratio] 12.6 % Normal 11.0-15.0 [facility] Comment on above: Performed By: #### C BC #### [facility] [address] [place] [address] Dr. Shari Allen Hematocrit (Bld) [Volume fraction] 38.2 % Normal 36.0-48.0 [facility] Comment on above: Performed By: #### C BC #### [facility] [address] [place] [address] Dr. Shari Allen Hemoglobin (Bld) [Mass/Vol] 12.4 g/dL Normal 12.0-16.0 [facility] Comment on above: Performed By: #### C BC #### [facility] [address] [place] [address] Dr. Shari Allen IG # 0.01 10e3/ul Normal 0.00-0.03 [facility] Comment on above: Performed By: #### C BC #### [facility] [address] [place] [address] Dr. Shari Allen IG % 0.2 % Normal 0.0-0.5 [facility] Comment on above: Performed By: #### C BC #### [facility] [address] [place] [address] Dr. Shari Allen LYMPH # 2.0 103/ul Normal 1.2-3.8 [facility] Comment on above: Performed By: #### C BC #### [facility] [address] [place] [address] Dr. Shari Allen Lymphocytes/100 WBC (Bld) 31.7 % Normal 20.5-60.0 [facility] Comment on above: Performed By: #### C BC #### [facility] [address] [place] [address] Dr. Shari Allen MANUAL DIFF REQ NO Normal [facility] Comment on above: Performed By: #### C BC #### [facility] [address] [place] [address] Dr. Shari Allen MCH (RBC) [Entitic mass] 30.7 pg Normal 26.7-34.0 [facility] Comment on above: Performed By: #### C BC #### [facility] [address] [place] [address] Dr. Shari Allen MCHC (RBC) [Mass/Vol] 32.5 g/dL Normal 29.9-35.2 [facility] Comment on above: Performed By: #### C BC #### [facility] [address] [place] [address] Dr. Shari Allen MCV (RBC) [Entitic vol] 94.6 fL Normal 81.0-99.0 [facility] Comment on above: Performed By: #### C BC #### [facility] [address] [address] [address] Shari Allen MONO # 0.5 103/ul Normal 0.3-0.8 [facility] Comment on above: Performed By: #### C BC #### [facility] [address] [address] [address] Shari Allen Monocytes/100 WBC (Bld) 8.6 % Normal 1.7-12.0 [facility] Comment on above: Performed By: #### C BC #### [facility] [address] [address] [address] Shari Allen NEUT # 3.5 103/ul Normal 1.4-6.5 [facility] Comment on above: Performed By: #### C BC #### [facility] [address] [place] [address] Dr. Shari Allen Neutrophils/100 WBC (Bld) 56.1 % Normal 43.0-75.0 [facility] Comment on above: Performed By: #### C BC #### [facility] [address] [address] [address] Shari Allen Platelet mean volume (Bld) [Entitic vol] 8.5 fL Critically low 9.5-13.5 [facility] Comment on above: Performed By: #### C BC #### [facility] [address] [address] [address] Shari Allen PLT 304 103/ul Normal 150-450 [facility] Comment on above: Performed By: #### C BC #### [facility] [address] [address] [address] Shari Allen RBC 4.04 106/ul Critically low 4.20-5.40 [facility] Comment on above: Performed By: #### C BC #### [facility] [address] [address] [address] Shari Allen WBC 6.2 103/ul Normal 4.0-11.0 [facility] Comment on above: Performed By: #### C BC #### [facility] [address] [place] [address] Dr. Shari Allen Covid-19 PCR (CVDTB)on 04-21 SARS-CoV-2 (COVID-19) RNA LEANN+probe Ql (Unsp spec) Not detected Normal NOT DETECTED [facility] Comment on above: Result Comment: This test is not yet approved or cleared by the [place] FDA. When there are no FDA-approved or cleared tests available, and other criteria are met, FDA can make tests available under an emergency access mechanism called an Emergency Use Authorization (EUA). The EUA for this test is supported by the [place] of Health and Human Service's (HHS's) declaration [...] SARS-CoV-2. Performed By: #### C XFUN #### [facility] [address] [place] [address] Dr. Shari Allen PROF CHEM 8 (BAS METB)on Anion gap [Moles/Vol] 11.1 mmol/L Normal [facility] Comment on above: Performed By: #### B MP #### [facility] [address] [place] [address] Dr. Shari Allen Calcium [Mass/Vol] 9.0 mg/dL Normal 8.5-10.1 [facility] Comment on above: Performed By: #### B MP #### [facility] [address] [place] [address] Dr. Shari Allen Chloride [Moles/Vol] 104 mmol/L Normal 98-107 [facility] Comment on above: Performed By: #### B MP #### [facility] [address] [address] [address] Shari Allen CO2 [Moles/Vol] 29.7 mmol/L Normal 21.0-32.0 [facility] Comment on above: Performed By: #### B MP #### [facility] [address] [place] [address] Dr. Shari Allen Creatinine [Mass/Vol] 0.80 mg/dL Normal 0.55-1.02 [facility] Comment on above: Performed By: #### B MP #### [facility] [address] [place] [address] Dr. Shari Allen EGFR-AF INDONESIAN >60 Normal >=60 [facility] Comment on above: Performed By: #### B MP #### [facility] [address] [address] [address] Shari Allen EGFR-NON AF INDONESIAN >60 Normal >=60 [facility] Comment on above: Performed By: #### B MP #### [facility] [address] [place] [address] Dr. Shari Allen Glucose [Mass/Vol] 87 mg/dL Normal 74-106 [facility] Comment on above: Performed By: #### B MP #### [facility] [address] [place] [address] Dr. Shari Allen Potassium [Moles/Vol] 3.8 mmol/L Normal 3.5-5.1 [facility] Comment on above: Performed By: #### B MP #### [facility] [address] [place] [address] Dr. Shari Allen Sodium [Moles/Vol] 141 mmol/L Normal 136-145 [facility] Comment on above: Performed By: #### B MP #### [facility] [address] [place] [address] Dr. Shari Allen Urea nitrogen [Mass/Vol] 14.0 mg/dL Normal 7.0-18.0 [facility] Comment on above: Performed By: #### B MP #### [facility] [address] [place] [address] Dr. Shari Allen Urea nitrogen/Creatinine [Mass ratio] 17.5 mg/mg Normal [facility] Comment on above: Performed By: #### B MP #### [facility] [address] [address] [address] Shari Allen Vital Signs Date Time Vital Sign Value Performing Clinician Fox romero 02-23-2025 10:110400 Body height 180.3 cm Nicky Hemmer PA Work Phone: [facility] 02-23-2025 10:11-0400 Body mass index (BMI) [Ratio] 20.33 kg/m2 Nicky Hemmer PA Work Phone: [facility] 02-23-2025 10:11040 Body weight 66.13 kg Nicky Hemmer PA Work Phone: [facility] 02-23-2025 10:11-0400 Diastolic blood pressure 82 mm[Hg] Nicky Hemmer PA Work Phone: [facility] 02-23-2025 10:11-0400 Heart rate 71 /min Nicky Hemmer PA Work Phone: [facility] 02-23-2025 10:11-0400 Respiratory rate 16 /min Nicky Hemmer PA Work Phone: [facility] 02-23-2025 10:11-0400 SaO2% (BldA) [Mass fraction] 96 % Nicky Hemmer PA Work Phone: [facility] 02-23-2025 10:11-0400 Systolic blood pressure 136 mm[Hg] Nicky Hemmer PA Work Phone: [facility] 11-11-2024 09:29-0400 Body height 180.3 cm Tsering Conte BONE DENSITY TECHNICIAN Work Phone: [facility] 11-11-2024 09:29-0400 Body mass index (BMI) [Ratio] 20.73 kg/m2 Tsering Conte BONE DENSITY TECHNICIAN Work Phone: [facility] 11-11-2024 09:29-0400 Body weight 67.41 kg Tsering Conte BONE DENSITY TECHNICIAN Work Phone: [facility] 11-11-2024 09:29-0400 Diastolic blood pressure 82 mm[Hg] Tsering Conte BONE DENSITY TECHNICIAN Work Phone: [facility] 11-11-2024 09:29-0400 Heart rate 64 /min Tsering Conte BONE DENSITY TECHNICIAN Work Phone: [facility] 11-11-2024 09:29-0400 Respiratory rate 16 /min Tsering Conte BONE DENSITY TECHNICIAN Work Phone: [facility] 11-11-2024 09:29-0400 SaO2% (BldA) [Mass fraction] 95 % Tsering Conte BONE DENSITY TECHNICIAN Work Phone: [facility] 11-11-2024 09:29-0400 Systolic blood pressure 142 mm[Hg] Tsering Conte BONE DENSITY TECHNICIAN Work Phone: [facility] 07-30-2024 09:10-0500 Body height 180.3 cm Nicky Hemmer PA Work Phone: [facility] 07-30-2024 09:10-0500 Body mass index (BMI) [Ratio] 19.67 kg/m2 Nicky Hemmer PA Work Phone: [facility] 07-30-2024 09:10-0500 Body weight 63.96 kg Nicky Hemmer PA Work Phone: [facility] 07-30-2024 09:10-0500 Diastolic blood pressure 76 mm[Hg] Nicky Hemmer PA Work Phone: [facility] 07-30-2024 09:10-0500 Heart rate 64 /min Nicky Hemmer PA Work Phone: [facility] 07-30-2024 09:10-0500 Respiratory rate 16 /min Nicky Hemmer PA Work Phone: [facility] 07-30-2024 09:10-0500 SaO2% (BldA) [Mass fraction] 99 % Nicky Hemmer PA Work Phone: [facility] 07-30-2024 09:10-0500 Systolic blood pressure 118 mm[Hg] Nicky Hemmer PA Work Phone: [facility] 05-04-2024 15:10-0400 Body height 180.3 cm Kvng Linton MD Work Phone: [facility] 05-04-2024 15:10-0400 Body mass index (BMI) [Ratio] 19.25 kg/m2 Kvng Linton MD Work Phone: [facility] 05-04-2024 15:10-0400 Body weight 62.6 kg Kvng Linton MD Work Phone: [facility] 05-04-2024 15:10-0400 Diastolic blood pressure 74 mm[Hg] Kvng Linton MD Work Phone: [facility] 05-04-2024 15:10-0400 Heart rate 77 /min Kvng Linton MD Work Phone: [facility] 05-04-2024 15:10-0400 SaO2% (BldA) [Mass fraction] 100 % Kvng Linton MD Work Phone: [facility] 05-04-2024 15:10-0400 Systolic blood pressure 128 mm[Hg] Kvng Linton MD Work Phone: [facility] 09-04-2023 11:26-0500 Body height 180.3 cm Kvng Linton MD Work Phone: [facility] 09-04-2023 11:26-0500 Body mass index (BMI) [Ratio] 19.8 kg/m2 Kvng Linton MD Work Phone: [facility] 09-04-2023 11:26-0500 Body weight 64.41 kg Kvng Linton MD Work Phone: [facility] 09-04-2023 11:26-0500 Diastolic blood pressure 62 mm[Hg] Kvng Linton MD Work Phone: [facility] 09-04-2023 11:26-0500 Heart rate 61 /min Kvng Linton MD Work Phone: [facility] 09-04-2023 11:26-0500 SaO2% (BldA) [Mass fraction] 99 % Kvng Linton MD Work Phone: [facility] 09-04-2023 11:26-0500 Systolic blood pressure 106 mm[Hg] Kvng Linton MD Work Phone: [facility] Encounters Encounter Date Encounter Type Care Provider Facility Start: 03-16-2025 End: 03-16-2025 Postop follow up visit related to original px Katlin Triplett MD Work Phone: [facility] Comment on above: Encounter for remova l of sutures Start: 03-16-2025 End: 03-16-2025 Bamboo flowsheet Katlin Triplett MD Work Phone: [facility] Start: 03-16-2025 End: 03-16-2025 Bamboo flowsheet Katlin Triplett MD Work Phone: [facility] Start: 03-02-2025 End: 03-02-2025 Patient encounter procedure Katlin Triplett MD Work Phone: [facility] Comment on above: Epidermal inclusion cyst (Primary Dx); Pain Start: 03-02-2025 End: 03-02-2025 ambulatory KATLIN TRIPLETT Not Available Start: 03-02-2025 End: 03-02-2025 Bamboo flowsheet Katlin Triplett MD Work Phone: [facility] Start: 03-02-2025 End: 03-02-2025 Bamboo flowsheet Katlin Triplett MD Work Phone: [facility] Start: 02-23-2025 End: 02-23-2025 Bamboo flowsheet Nicky TURNER Work Phone: [facility] Start: 02-23-2025 End: 02-23-2025 Bamboo flowsheet Nicky TURNER Work Phone: [facility] Start: 02-23-2025 End: 02-23-2025 Patient encounter procedure Nicky TURNER Work Phone: [facility] Comment on above: Medicare annual well ness visit, subsequent (Primary Dx); ACP (advance care [...] sciatica Start: 02-23-2025 End: 02-23-2025 ambulatory NICKY MORRISSEY Not Available Start: 01-27-2025 End: 01-27-2025 Clinisync Result Encounter Generic External Data Provider [facility] External Department Unsolicited Start: 01-27-2025 End: 01-27-2025 Clinisync Result Encounter Generic External Data Provider [facility] External Department Unsolicited Start: 12-30-2024 End: 12-30-2024 Bamboo flowsheet Gabriela TURNER Work Phone: [facility] Start: 12-30-2024 End: 12-30-2024 Bamboo flowsheet Gabriela TURNER Work Phone: [facility] Start: 12-30-2024 End: 12-30-2024 Office outpatient new 30 minutes Gabriela TURNER Work Phone: [facility] Comment on above: Epidermal inclusion cyst (Primary Dx); Localized tenderness Start: 12-30-2024 End: 12-30-2024 ambulatory GABRIELA GILMAN Not Available Start: 11-11-2024 End: 11-11-2024 Bamboo flowsheet Tsering Conte BONE DENSITY TECHNICIAN Work Phone: [facility] Start: 11-11-2024 End: 11-11-2024 Bamboo flowsheet Tsering Conte BONE DENSITY TECHNICIAN Work Phone: [facility] Start: 11-11-2024 End: 11-11-2024 Office outpatient visit 25 minutes Tsering Conte BONE DENSITY TECHNICIAN Work Phone: [facility] Comment on above: Essential (primary) hypertension (CMS/HCC) (Primary Dx); Rheumatoid arthritis, unspecified; Infected sebaceous gland Start: 11-11-2024 End: 11-11-2024 ambulatory TSERING CONTE Not Available Start: 09-18-2024 End: 09-18-2024 Ishmael Linton MD Work Phone: [facility] Comment on above: Primary osteoarthrit is, unspecified site; Inflammatory and toxic neuropathy (CMS/HCC); Neurogenic pain Start: 08-25-2024 End: 08-31-2024 Telephone encounter Nicky TURENR Work Phone: [facility] Start: 07-30-2024 End: 07-30-2024 Bamboo flowsheet Nicky TURNER Work Phone: [facility] Start: 07-30-2024 End: 07-30-2024 Bamboo flowsheet Nicky TURNER Work Phone: [facility] Start: 07-30-2024 End: 07-30-2024 Office outpatient visit 25 minutes Nicky TURNER Work Phone: [facility] Comment on above: Essential (primary) hypertension (CMS/HCC) (Primary Dx); Restless legs syndrome (RLS); History of sepsis; Burning sensation; Vitamin D deficiency; Snoring; Apneic episode Start: 07-30-2024 End: 07-30-2024 ambulatory NICKY MORRISSEY Not Available Start: 06-30-2024 End: 07-01-2024 Refill [...] 03-14-2024 Evaluation and management of inpatient BRITTANY [facility] Start: 03-13-2024 End: 03-14-2024 Evaluation and management of inpatient [facility] Start: 03-13-2024 End: 03-13-2024 Evaluation and management of inpatient [facility] Start: 03-05-2024 End: 03-05-2024 ambulatory KVNG LINTON [facility] Start: 02-25-2024 End: 02-25-2024 ambulatory [facility] Start: 02-12-2024 End: 02-12-2024 ambulatory [facility] Start: 01-16-2024 End: 01-16-2024 ambulatory [facility] Start: 12-20-2023 End: 12-20-2023 Evaluation and management of inpatient AYDEN LAN [facility] Start: 12-19-2023 End: 12-20-2023 Evaluation and management of inpatient [place] [facility] Start: 11-28-2023 End: 11-28-2023 ambulatory JESUS BINGHAM [facility] Start: 10-26-2023 End: 10-27-2023 Evaluation and management of inpatient IRWIN HODGE [facility] Start: 09-05-2023 ambulatory Facility:[facility] Start: 09-04-2023 [employer] flowsheet Kvng jones MD Work Phone: [facility] Start: 09-04-2023 [facility] Work Phone: [facility] [...] Start: 10-19-2022 Encounter for preprocedural cardiovascular examination [facility] Start: 10-19-2022 Encounter for preprocedural laboratory examination ANUP Anderson [facility] Start: 10-16-2022 End: 10-17-[address] KVNG LNITON Facility:[facility] Start: 10-16-2022 End: 10-17-2022 Encounter for [...] Facility:[facility] Start: 05-25-2022 End: 05-26-2022 ambulatory ANUP D HIGHLANDER Facility:[facility] Start: 05-18-2022 End: 05-19-2022 ambulatory ANUP D HIGHLANDER Facility:[facility] Start: 05-10-2022 End: 05-10-2022 ambulatory PETER D HIGHLANDER Facility:[facility] Start: 05-07-2022 End: 05-08-2022 ambulatory PETER D HIGHLANDER Facility:[facility] Start: 05-02-2022 End: 05-03-2022 ambulatory PETER D HIGHLANDER Facility:[facility] Start: 04-30-2022 End: 05-01-2022 ambulatory PETER D HIGHLANDER Facility:[facility] Start: 03-23-2022 End: 03-24-2022 ambulatory PETER D HIGHLANDER Facility:[facility] Start: 03-16-2022 End: 03-17-2022 ambulatory PETER D HIGHLANDER Facility:[facility] Start: 03-02-2022 End: 03-03-2022 ambulatory PETER D HIGHLANDER Facility:[facility] Start: 02-23-2022 End: 02-24-2022 ambulatory PETER D HIGHLANDER Facility:[facility] Start: 01-26-2022 End: 01-27-2022 ambulatory PETER D HIGHLANDER Facility:[facility] Start: 01-18-2022 End: 01-19-2022 ambulatory PETER D HIGHLANDER Facility:[facility] Start: 01-11-2022 End: 01-12-2022 ambulatory ANUP D HIGHLANDER Facility:[facility] Start: 01-04-2022 End: 01-04-[address] KVNG LINTON Facility:[facility] Start: 01-01-[address] KVNG LINTON Facilit y:[facility] Procedures Date Procedure Procedure Detail Performing Clinician Start: 03-02-2025 SKIN EXCISION Katlin Triplett MD Work Phone: Start: 03-02-2025 SKIN REPAIR [...] 03/16/2025 3:30 PM EDT Office Visit [facility] [address] [place] [address] Katlin Triplett MD [address] [place] [address] [facility] Start: 03-02-2025 End: 03-02-2025 Patient encounter procedure [facility] Comment on above: Arrived Start: 02-23-2025 End: 02-23-2025 Patient encounter procedure 02/23/2025 10:00 AM EDT Office Visit [facility] [address] [place] [id number] Nicky Morrissey PA [address] [place] [address] Arrived [facility] Comment on above: Arrived Start: 02-05-2025 Medicare Annual Wellness (AWV) Medicare Annual Wellness (AWV) [facility] Start: 01-06-2025 End: 01-06-2025 Patient encounter procedure 01/06/2025 11:00 AM EDT Office Visit [facility] [address] [place] [address] Tsering Conte, VIANNEY [address] [place] [address] [facility] Start: 12-30-2024 End: 12-30-2024 Patient encounter procedure 12/30/2024 12:50 PM EDT Office Visit [facility] [address] [place] [address] Gabriela Gilman, PA [address] [place], [place] [id number] Arrived [facility] Comment on above: Arrived Start: 11-23-2024 End: 11-23-2024 Patient encounter procedure 11/23/2024 4:00 PM EDT Office Visit [facility] [address] [place] [address] Kvng Linton MD [address] [place] [address] [facility] Start: 11-11-2024 End: 11-11-2024 Patient encounter procedure 11/11/2024 9:30 AM EDT Office Visit [facility] [address] [place] [address] Tsering Conte, VIANNEY [address] [place] [address] Arrived [facility] Comment on above: Arrived Start: 08-03-2024 End: 08-03-2024 Patient encounter procedure [facility] Start: 07-30-2024 End: 07-30-2025 25-hydroxyvitamin D3 [Mass/volume] in Serum or Plasma Vitamin D 25 hydroxy Total Lab Routine Vitamin D deficiency Expected: 07/30/2024 (Approximate), Expires: 07/30/2025 [facility] Comment on above: Expected: 07/30/2024 (Approximate), Expi res: 07/30/2025 Start: 07-30-2024 End: 07-30-2025 CBC W Auto Differential panel - Blood CBC and differential Lab Routine Essential (primary) hypertension (CMS/HCC) History of sepsis Expected: 07/30/2024 (Approximate), Expires: 07/30/2025 [facility] Work Phone: Comment on above: Expected: 07/30/2024 (Approximate), Expi res: 07/30/2025 Start: 07-30-2024 End: 07-30-2025 Comprehensive metabolic 2000 panel - Serum or Plasma Comprehensive metabolic panel Lab Routine Essential (primary) hypertension (CMS/HCC) Expected: 07/30/2024 (Approximate), Expires: 07/30/2025 [facility] Comment on above: Expected: 07/30/2024 (Approximate), Expi res: 07/30/2025 Start: 07-30-2024 End: 07-30-2025 Lipid 1996 panel - Serum or Plasma Lipid panel Lab Routine Essential (primary) hypertension (CMS/HCC) Expected: 07/30/2024 (Approximate), Expires: 07/30/2025 [facility] Comment on above: Expected: 07/30/2024 (Approximate), Expi res: 07/30/2025 Start: 07-30-2024 End: 07-30-2024 Patient encounter procedure 07/30/2024 9:00 AM EST Office Visit [facility] [address] [facility] [address] [place] [address] Nicky Morrissey PA [address] [facility] [address] [place] [address] Arrived [facility] Comment on above: Arrived Start: 05-04-2024 End: 05-04-2024 Patient encounter procedure 05/04/2024 3:15 PM EDT Office Visit [facility] [address] [place] [address] Kvng Linton MD [address] [facility] [address] [place] [address] Arrived [facility] Comment on above: Arrived Start: 03-22-2024 Influenza vaccination Influenza Vaccine (#1) [facility] Start: 09-04-2023 End: 09-04-2025 Echocardiogram 2D complete Echocardiogram 2D complete Echocardiography Routine TIA (transient ischemic attack) Expected: 09/04/2023 (Approximate), Expires: 09/04/2025 [facility] Work Phone: Comment on above: Expected: 09/04/2023 (Approximate), Expi res: 09/04/2025 Start: 09-04-2023 End: 09-04-2023 Patient encounter procedure 09/04/2023 11:30 AM EST Office Visit [facility] [address] [facility] [address] [place] [id number] Kvng Linton MD [address] [facility] [address] [place], [place] [id number] Arrived [facility] Comment on above: Arrived Start: 05-07-2023 Medicare Annual Wellness (AWV) Medicare Annual Wellness (AWV) [facility] Start: 03-22-2023 Influenza vaccination Influenza Vaccine (#1) [facility] Start: 1945 Screening for malignant neoplasm of colon [facility] Dermatopathology exam Dermatopat hology exam Pathology and Cytology Timed Epidermal inclusion cyst Release Upon Ordering for 1 Occurrences starting 03/02/2025 [facility] Work Phone: Comment on above: Release Upon Ordering for 1 Occurrences starting 03/02/2025 Immunizations Immunization Date Immunization Notes Care Provider Fa [facility] 07-05-2022 Influenza, High-dose Seasonal, Quadrivalent, Preservative Free Kvng Linton MD Work Phone: [facility] 07-05-2022 influenza virus vacc ine, unspecified formulation Kvng Linton MD Work Phone: [facility] 05-03-2021 influenza, high dose seasonal, preservative-free Kvng Linton MD Work Phone: [facility] 04-12-2020 Influenza, High-dose Seasonal, Quadrivalent, Preservative Free Kvng Linton MD Work Phone: [facility] 04-12-2020 pneumococcal conjuga te vaccine, 13 valent Kvng Linton MD Work Phone: [facility] 04-05-2020 influenza, high dose seasonal, preservative-free Kvng Linton MD Work Phone: [facility] 04-05-2020 pneumococcal polysaccharide vaccine, 23 valent Kvng Linton MD Work Phone: [facility] 07-02-2019 influenza, high dose seasonal, preservative-free Kvng Linton MD Work Phone: [facility] 06-05-2018 Influenza, injectabl e, Madin Carr Canine Kidney, preservative free, quadrivalent Kvng Linton MD Work Phone: [facility] 04-23-2018 seasonal influenza, intradermal, preservative free Kvng Linton MD Work Phone: [facility] 04-23-2016 influenza, injectabl e, quadrivalent, contains preservative Kvng Linton MD Work Phone: [facility] 11-16-2013 pneumococcal polysaccharide vaccine, 23 valent Kvng Linton MD Work Phone: [facility] 01-21-2012 tetanus toxoid, redu nithin diphtheria toxoid, and acellular pertussis vaccine, adsorbed Kvng Linton MD Work Phone: [facility] Payers Date Payer Category Payer Medicare [id number] 2023 Medicare (Managed Care) RASHID ROMAN [facility] [id number] 2023 Medicare [id number] 2013 Medicare [id number]. [id number] 1959 Medicare [id number] 1959 Unknown [id number] 1947 Unknown [id number] 2.16.840.1.670478.3.579.2. 593 1947 Unknown [id number] 2.16.840.1.406545.3.579.2. 593 1947 Unknown [id number] 2.16.840.1.999710.3.579.2. 593 1947 Unknown [id number] 2.16.840.1.609764.3.579.2. 593 1947 Unknown [id number] 2.16.840.1.819814.3.579.2. 593 1947 Unknown [id number] 2.16.840.1.672214.3.579.2. 593 1947 Unknown [id number] 2.16.840.1.862117.3.579.2. 593 1947 Unknown [id number] 2.16.840.1.178115.3.579.2. 593 1947 Unknown [id number] 2.16.840.1.784879.3.579.2. 593 1947 Unknown [id number] 2.16.840.1.270696.3.579.2. 593 1947 Unknown [id number] 2.16.840.1.963720.3.579.2. 593 1947 Unknown [id number] 2.16.840.1.097278.3.579.2. 593 1947 Unknown [id number] 2.16.840.1.758854.3.579.2. 593 1947 Unknown [id number] 2.16.840.1.756806.3.579.2. 593 1947 Unknown [id number] 2.16.840.1.784236.3.579.2. 593 1947 Unknown [id number] 2.16.840.1.424490.3.579.2. 593 1947 Unknown [id number] 2.16.840.1.865917.3.579.2. 593 1947 Unknown [id number] 2.16.840.1.491920.3.579.2. 593 1947 Unknown [id number] 2.16.840.1.876582.3.579.2. 593 1947 Unknown [id number] 2.16.840.1.930370.3.579.2. 593 1947 Unknown [id number] 2.16.840.1.930461.3.579.2. 593 1947 Unknown [id number] 2.16.840.1.104559.3.579.2. 593 1947 Unknown [id number] 2.16.840.1.200318.3.579.2. 593 1947 Unknown [id number] 2.16.840.1.559632.3.579.2. 593 1947 Unknown [id number] 2.16.840.1.129877.3.579.2. 593 1947 Unknown [id number] 2.16.840.1.391185.3.579.2. 173 1947 Unknown [id number] 2.16.840.1.326885.3.579.2. 1286 1947 Unknown [id number] 2.16.840.1.187951.3.579.2. 1286 1947 Unknown [id number] 2.16.840.1.411083.3.579.2. 1286 1947 Unknown [id number] 2.16.840.1.398821.3.579.2. 1286 -03-1946 Unknown [id number] 2.16.840.1.363720.3.579.2. 128 1947 Unknown [id number] 2.16.840.1.184494.3.579.2. 128 1947 Unknown [id number] 2.16.840.1.729671.3.579.2. 1285 1947 Unknown [id number] 2.16.840.1.765718.3.579.2. 1285 1947 Unknown [id number] 2.16.840.1.519537.3.579.2. 1285 1947 Unknown [id number] 2.16.840.1.556366.3.579.2. 1285 1947 Unknown [id number] 2.16.840.1.281264.3.579.2. 1285 1947 Unknown [id number] 2.16.840.1.202783.3.579.2. 128 1947 Unknown [id number] 2.16.840.1.143380.3.579.2. 1285 1947 Unknown [id number] 2.16.840.1.655380.3.579.2. 1258 1947 Unknown [id number] 2.16.840.1.383260.3.579.2. 1258 1947 Unknown [id number] 2.16.840.1.677006.3.579.2. 1258 1947 Unknown [id number] 2.16.840.1.105786.3.579.2. 1258 1947 Unknown [id number] 2.16.840.1.317014.3.579.2. 1258 1947 Unknown [id number] 2.16.840.1.959590.3.579.2. 1259 Social History Date Type Detail Facility Start: 03-12-2023 End: 11-11-2024 Tobacco smoking status NHIS Ex-smoker [facility] Start: 07-30-1965 End: 07-22-1992 History of tobacco use Current smoker [facility] Start: 07-30-1965 End: 07-22-1992 History of tobacco use Cigarette Smoker [facility] Start: 03-12-2023 End: 11-11-2024 Tobacco use and exposure Smokeless tobacco non-user [facility] Start: 08-30-2023 End: 09-04-2023 Alcohol intake Not Asked [facility] Start: 03-12-2023 End: 03-05-2024 History of Social function [facility] Work Phone: Start: 03-12-2023 End: 03-05-2024 Tobacco use panel [facility] Work Phone: Start: 03-14-2023 Alcohol Comment caffeine intak e: more than 4 cups per day. [facility] Start: 1945 Sex Assigned At Not on file [facility] Start: 03-31-2024 End: 03-16-2025 Alcoholic beverage intake Lifetime non-drinker (finding) [facility] [...] Health Quest ionnaire 2 item (PHQ-2) [Reported] [facility] 11-11-2024 Patient Health Quest ionnaire 2 item (PHQ-2) [Reported] [facility] Clinical Notes 02-26-2022 to 03-16-2025 Katlin Triplett MD - 03/16/2025 3:30 PM EDTClyndsey Triplett MD - 03/02/2025 3:15 PM YUE Wiley - 02/23/2025 10:00 AM YUE Sumner - 12/30/2024 12:50 PM EDT Note Date & Type Note Facility 03-16-2025 History of Present illness Narrative Images from the original note were not included. Staple Removal Patient here for staple removal: No complaints of redness, drainage or swelling at site, compliant with wound care. Location: Abdomen Procedure Performed: Excision Date of Procedure: 03/02/25 All pertinent medical history, medications, and allergies were reviewed. General Exam: alert, oriented to person, place, and time, normal affect, well appearing Unaccompanied A focused exam completed based on patient reported problems, see below: Skin Exam 1. ENCOUNTER FOR REMOVAL OF SUTURES Left Abdomen (side) - Upper Sutures are intact, Skin edges are well-approximated, Mild erythema along incision line, No drainage or edema noted Suture Removal: Procedure: Sutures were removed without difficulty. Tincture of Benzoin was applied around site in preparation of steri-strips. Steri-strips were applied Post-Procedure instructions: Instructed to discontinue wound care., Instructed to keep steri strips on for at least 5-7 days., Pathology results discussed. Next Visit: As needed documented in this encounter [facility] 03-02-2025 History of Present illness Narrative Images [...] days for s/r documented in this encounter [facility] 02-23-2025 History of Present illness Narrative Images [...] Do you have a medical power of real estate attorney?: No Current Outpatient Medications on File [...] 2019 CATARACT EXTRACTION SECTION, LOW TRANSVERSE COLONOSCOPY 2014 COLONOSCOPY 12/19/2023 COLONOSCOPY 03/13/2024 Up to Transverse Colon Visualized EGD 2019 esophageal dilatation FOOT SURGERY right foot dr perez HERNIA REPAIR IR INJECTION NERVE BLOCK 2020 [...] a living will and durable power of real estate attorney for healthcare. We discussed telling yoder [...] (around 05/26/2025) for Medication Follow Up. Nicky Morrissey MSALEXANDER, KRISTOFERC documented in this encounter [facility] 12-30-2024 History of Present illness Narrative Images [...] elected for excision, plan schedule with Dr. Triplett. Notify office if lesion is enlarging or becomes symptomatic. 2. LOCALIZED TENDERNESS Next Visit: 03/02/2025, excision documented in this encounter [facility] 11-11-2024 History of Present illness Narrative Images [...] esophageal dilatation FOOT SURGERY right foot dr perez HERNIA REPAIR IR INJECTION NERVE BLOCK 2020 [...] follow-ups on file. documented in this encounter [facility] 08-31-2024 Telephone encounter Note Acknowledged. [facility] 08-31-2024 Miscellaneous Notes Acknowledged. Patient was contacted by [facility] Matthew for a sleep study and at this time she wants to cancel the study, for she doesn't feel it is necessary. documented in this encounter [facility] 08-31-2024 Telephone encounter Note Acknowledged. [facility] 08-31-2024 Miscellaneous Notes Acknowledged. Hi, this is Be patient healthcare prof with [facility]. 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 [phone], thank you. documented in this encounter [facility] 08-25-2024 Telephone encounter Note Patient was contacted by [facility] Matthew for a sleep study and at this time she wants to cancel the study, for she doesn't feel it is necessary. [facility] 08-25-2024 Telephone encounter Note Hi, this is Be patient healthcare prof with [facility]. 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 [phone], thank you. [facility] 07-30-2024 History of Present illness Narrative Images from the original note were not included. [facility] Med Refill Additional comments: Ropinirole Last [...] esophageal dilatation FOOT SURGERY right foot dr perez HERNIA REPAIR IR INJECTION NERVE BLOCK 2020 [...] 08/27/2024) for Recheck. documented in this encounter [facility] 05-08-2024 Telephone encounter Note Sent. [facility] 05-08-2024 Miscellaneous Notes Sent. documented in this encounter [facility] 05-04-2024 History of Present illness Narrative Images [...] esophageal dilatation FOOT SURGERY right foot dr perez HERNIA REPAIR IR INJECTION NERVE BLOCK 2020 [...] for Routine F/U. documented in this encounter [facility] 04-06-2024 Telephone encounter Note Patient came in [...] OTC 1 hour prior to each pill. [facility] 04-06-2024 Miscellaneous Notes Patient came in with [...] to each pill. documented in this encounter [facility] 09-04-2023 History of Present illness Narrative Subjective Patient ID: Berenice Silva is a 77 y.o. female who presents for Follow-up ([facility] stay admitted 08/24/23 dx: TIA discharged home 08/25/23 advised to take ASA 325mg). Flowsheet Row Telephone from 08/30/2023 in [facility] with Kvng Linton MD Discharge Information ED or Hospital Discharge? Hospital Patient has been contacted within two business days of discharge No Have two attempts been made to contact the patient within two business days of being discharged? No Discharge Date 08/25/23 Discharge Hospital [facility] Discharged To: Home Setting Engagement Call [...] THE MORNING 90 tablet 0 [DISCONTINUED] HYDROcodone-acetaminophen (Savery) 5-325 MG tablet Take 1 tablet by [...] esophageal dilatation FOOT SURGERY right foot dr perez HERNIA REPAIR IR INJECTION NERVE BLOCK 2020 [...] for Test/Lab Review. documented in this encounter [facility] 10-22-2022 Note PROCEDURE: XR FOOT R T [...] authenticated by: HALEIGH FINE Date: 2022-10-22 16:24 [facility] 10-09-2022 Note PROCEDURE: XR FOOT R [...] authenticated by: AYDEN SERRA Date: 2022-10-09 14:38 [facility] 09-18-2022 Note PROCEDURE: XR FOOT R [...] authenticated by: AYDEN SERRA Date: 2022-09-18 17:34 [facility] 05-10-2022 Note PROCEDURE: XR FOOT R T 2V COMPARISON: 02/23/2022 HISTORY: Pain FINDINGS: BONES:Stable medial effusion with plates and screws. Stable subtalar fusion. Changing configuration of the lateral sesamoid of the first metatarsal SOFT TISSUES:Negative. No visible soft tissue swelling. EFFUSION:None visible. OTHER: Negative. IMPRESSION: Intraprocedural fluoroscopic images Electronically authenticated by: AYDEN SERRA Date: 2022-05-10 17:33 [facility] 05-10-2022 Note PROCEDURE: XR FOOT R [...] authenticated by: AYDEN SERRA Date: 2022-05-10 17:32 [facility] 02-26-2022 Note PROCEDURE: XR FOOT R [...] by: AYDEN SERRA Date: 2022-02-26 07:57 [facility] Evaluation note Diagnosis TIA (transient ischemic [...] Generalized pain [facility] Diagnosis Encounter for removal of sutures documented [facility] this [facility] (narrative)* Consultation (Routine) - Pending Review Specialty Diagnoses / Procedures Referred By Contac t Referred To Contact Urology Diagnoses Urinary frequency Procedures TX OFFICE/OUTPATIENT [facility] 60 MINUTES Kvng Linton MD [address] [address] Vee Hatfield MD [address] [place] [address] Referral ID Status Reason Start Date Expiration Date Visits Requested Visits Authorized [id number] Pending Review Specialty Services Required 09/04/2023 03/02/2024 1 1 * Consultation (Routine) - Pending Review Specialty Diagnoses / Procedures Referred By Mindy t Referred To Contact Neurology Diagnoses TIA (transient ischemic attack) Procedures TX OFFICE/OUTPATIENT [facility] 60 MINUTES Kvng Linton MD [address] [address] Damion Longo MD [address] [place] [address] Referral ID Status Reason Start Date Expiration Date Visits Requested Visits Authorized [id number] Pending Review Specialty Services Required 09/04/2023 03/02/2024 1 1 * Imaging (Routine) - Pending Review Specialty Diagnoses / Procedures Referred By Mindy gaitan Referred To Contact Cardiology Diagnoses TIA (transient ischemic attack) Procedures Echocardiogram 2D complete Kvng Linton MD [address] [place] [address] Referral ID Status Reason Start Date Expiration Date Visits Requested Visits Authorized [id number] Pending Review Perform Procedure 09/04/2023 03/02/2024 1 [...] and content) DATE CREATED AUTHOR 12/28/2022 [facility] DATE CREATED AUTHOR AUTHOR'S ORGANIZ ATION 09/07/2023 [facility] DATE CREATED AUTHOR AUTHOR'S ORGANIZ ATION 11/01/2023 [facility] DATE CREATED AUTHOR AUTHOR'S ORGANIZ ATION 01/22/2024 [facility] DATE CREATED AUTHOR AUTHOR'S ORGANIZ ATION 02/27/2024 [facility] DATE CREATED AUTHOR AUTHOR'S ORGANIZ ATION 03/15/2024 [facility] DATE CREATED AUTHOR AUTHOR'S ORGANIZ ATION 08/07/2024 [facility] DATE CREATED AUTHOR AUTHOR'S ORGANIZ ATION 03/04/2025 [facility] dical Specialists [facility] Care Teams (unrecognized sec tion and content) Tack Driller Relationship Specialty Start Date End Date Kvng Linton MD [address] [place] [address] PCP - General Internal Medicine 11/27/22 Kvng Linton MD [address] [place] [address] PCP - Rashid GALVEZ 07/22/23 Tack Driller Relationship Specialty Start Date End Date Kvng Linton MD [address] [place] [address] PCP - General Internal Medicine 11/27/22 Kvng Linton MD [address] [place] [address] PCP - Rashid GALVEZ 07/22/23 Tack Driller Relationship Specialty Start Date End Date Kvng Linton MD [address] [place] [address] PCP - General Internal Medicine 11/27/22 Kvng Linton MD [address] [place] [address] PCP - Rashid GALVEZ 07/22/23SaturdayElvi LPN [address] [place] [address] Licensed Practical Nurse Family Medicine 02/26/24 Tack Driller Relationship Specialty Start Date End Date Kvng Linton MD [address] [place] [address] PCP - General Internal Medicine 11/27/22 Kvng Linton MD [address] [place] [address] PCP - Rashid GALVEZ 07/22/23Saturday, Elvi, DUPLICATING MACHINE OPERATOR [address] [place] [address] Licensed Practical Nurse Family Medicine 02/26/24 Tack Driller Relationship Specialty Start Date End Date Kvng Linton MD [address] [place] [address] PCP - General Internal Medicine 11/27/22 Kvng Linton MD [address] [place] [address] PCP - Rashid GALVEZ 07/22/23Saturday, Elvi, DUPLICATING MACHINE OPERATOR [address] [place] [address] Licensed Practical Nurse Family Medicine 02/26/24 Tack Driller Relationship Specialty Start Date End Date Kvng Linton MD [address] [place] [address] PCP - General Internal Medicine 11/27/22 Kvng Linton MD [address] [place] [address] PCP - Rashid GALVEZ 07/22/23Saturday, Elvi, DUPLICATING MACHINE OPERATOR [address] [place] [address] Licensed Practical Nurse Family Medicine 02/26/24 Tack Driller Relationship Specialty Start Date End Date Kvng Linton MD [address] [place] [address] PCP - General Internal Medicine 11/27/22SaturdayElvi LPN [address] [place] [address] Licensed Practical Nurse Family Medicine 02/26/24 08/28/24 Heydi Parker, RN Licensed Practical Nurse Family Medicine 08/28/24 Tack Driller Relationship Specialty Start Date End Date Kvng Linton MD [address] [place] [address] PCP - General Internal Medicine 11/27/22 Heydi Parker, FAUSTO Licensed Practical Nurse Family Medicine 08/28/24 Tack Driller Relationship Specialty Start Date End Date Kvng Linton MD [address] [place] [address] PCP - General Internal Medicine 11/27/22 Kvng Linton MD [address] [place] [address] PCP - Rashid GALVEZ 07/22/23 Reina Palma LPN 10/06/24 Tack Driller Relationship Specialty Start Date End Date Kvng Linton MD [address] [place] [address] PCP - General Internal Medicine 11/27/22 Kvng Linton MD [address] [place] [address] PCP - Rashid GALVEZ 07/22/23 Reina Palma LPN 10/06/24 Tack Driller Relationship Specialty Start Date End Date Kvng Linton MD [address] [place] [address] PCP - General Internal Medicine 11/27/22 Kvng Linton MD [address] [place] [address] PCP - Rashid GALVEZ 07/22/23 Reina Palma LPN 10/06/24 Tack Driller Relationship Specialty Start Date End Date Kvng Linton MD [address] [place] [address] PCP - General Internal Medicine 11/27/22 Kvng Linton MD [address] [place] [address] PCP - Rashid GALVEZ 07/22/23 Reina Palma LPN 10/06/24 Tack Driller Relationship Specialty Start Date End Date Kvng Linton MD [address] [place] [address] PCP - General Internal Medicine 11/27/22 Kvng Linton MD [address] [place] [address] PCP - Rashid GALVEZ 07/22/23 Reina Palma LPN [address] [place] [address] 10/06/24 Tack Driller Relationship Specialty Start Date End Date Kvng Linton MD [address] [place] [address] PCP - General Internal Medicine 11/27/22 Kvng Linton MD [address] [place] [address] PCP - Rashid GALVEZ 07/22/23 Reina Palma LPN [address] [place] [address] 10/06/24 Tack Driller Relationship Specialty Start Date End Date Kvng Linton MD [address] [place] [address] PCP - General Internal Medicine 11/27/22 Kvng Linton MD [address] [place] [address] PCP - Rashid MA 07/22/23 Reina Palma LPN [address] [place] [address] 10/06/24 Tack Driller Relationship Specialty Start Date End Date Kvng Linton MD [address] [place] [address] PCP - General Internal Medicine 11/27/22 Kvng Linton MD [address] [place] [address] PCP Gay Mike MA 07/22/23 Reina Palma LPN [address] [place] [address] 10/06/24 Tack Driller Relationship Specialty Start Date End Date Kvng Linton MD [address] [place] [address] PCP - General Internal Medicine 11/27/22 Kvng Linton MD [address] [place] [address] PCP - Rashid MA 07/22/23 Reina Palma LPN [address] [place] [address] 10/06/24 Tack Driller Relationship Specialty Start Date End Date Kvng Linton MD [address] [facility] [place] [address] PCP - General Internal Medicine 11/27/22 Kvng Linton MD [address] [facility] [place] [address] PCP - Rashid GALVEZ 07/22/23 Reina Palma, DUPLICATING MACHINE OPERATOR [address] [facility] [address] [place] [address] 10/06/24 Reason for Visit (unrecogniz ed section [...] BE BASED ON THE PRIMARY CLINICAL RECORDS. [employer] provides no warranty or guarantee of the accuracy or [phone] in [phone] [id number]
== END 2025-03-17 11:29 | disposition home or self-care (01) ==
LOC: WC 11:28
PROVIDERS: PCP Internal Medicine; Visit Provider Physician Assistant
DX: L97.415 Non-pressure chronic ulcer of right heel and midfoot with muscle involvement without evidence of necrosis (principal)
CPT/HCPCS: 11043

== ENCOUNTER 2025-03-24 09:59 | Outpatient (OUT) | payer MEDICARE, SELFPAY ==
--- OUTSIDE RECORDS SUMMARY | 2025-03-24 11:29 | XMS_ITS | CCD ---
Author Organization [facility] Care Team Providers Care Food Prep Worker Name Role Phone ANUP JOHN Attending Unavailable [...] Primary Care Unavailable HIGHLANUP HUBBARD Attending Unavailable HIGHLHAYDEE, ANUP Anderson Admitting Unavailable LINTON, DR DAWSON [...] Unavailable AYYAGARI ., MAURICIO Consulting Unavailable MCCORNAHALEIGH PGEUERO Consulting Unavailable HIGHLANDER, ANUP Anderson Attending Unavailable HIGHLANDER, ANUP Anderson Admitting Unavailable LINTON, DR DAWSON Primary Care Unavailable WEST, DR AYDEN Salmon Consulting Unavailable HIGHLANDER, ANUP Anderson Consulting Unavailable YARELIS ., CAROLYN FROST Consulting Unavailable SHARP, VSEN Consulting Unavailable GEMBUS, KVNG Consulting Unavailable HIGHLANDER, ANUP Anderson Attending Unavailable LINTON, DR DAWSNO Primary Care Unavailable HIGHLANDER, ANUP Anderson Admitting [...] Primary Care Provider Kvng Linton MD Unavailable [phone] IRWIN HODGE Attending Unavailable IRWIN HODGE Admitting Unavailable ROYA MATTHEWS Primary Care Unavailable KAMLA AYALA Referring Unavailable KVNG LINTON Primary Care Unavailable JESUS BINGHAM Attending Unavailable KVNG LINTON Referring Unavailable KVNG LINTON Primary Care Unavailable KAMLA AYALA Attending Unavailable KVNG LINTON Referring Unavailable KVNG LINTON Primary Care Unavailable SEBASTIAN LAWSON Attending Unavailable KVNG LINTON B Referring Unavailable LIANET KVNG B Primary Care Unavailable KAMLA AYALA Admitting Unavailable KAMLA AYALA Attending Unavailable KAMLA AYALA Referring Unavailable LIANET KVNG B Primary Care Unavailable KAMLA AYALA Attending Unavailable KAMLA AYALA Referring Unavailable LIANET KVNG B Primary Care Unavailable AYDEN LAN Attending Unavailable LIANET KVNG B Primary Care Unavailable LIANET KVNG B Referring Unavailable LIANET KVNG B Primary Care Unavailable RENNYELYSSADOMONIQUERAHEEL M Admitting Unavailable RENNY, ELYSSANATPAL M Attending Unavailable LIANET KVNG B Primary Care Unavailable RENNY, SEBASTIAN M Attending Unavailable RENNY, SEBASTIAN M Referring Unavailable LIANET KVNG B Primary Care Unavailable BRITTANY DEGROOT Attending Unavailable KVNG LINTON B Primary Care Unavailable Saturday GUN REPAIR CLERK, Elvi Unavailable Saturday GUN REPAIR CLERK, Elvi Unavailable Heydi Parker RN Unavailable Palma GUN REPAIR CLERK, Reina Unavailable Unavailable Palma GUN REPAIR CLERK, Reina Unavailable TSERING STARR Attending Unavailable GABRIELA GILMAN Attending Unavailable KVNG LINTON Attending Unavailable NICKY RIDDLE Attending Unavailable KATLIN ROMERO Attending Unavailable KATLIN ROMERO Attending Unavailable NICKY RIDDLE Attending Unavailable Allergies Allergy Classification Reported Allergen(s) Allergy Type Date of Onset Reaction(s) Facility (1 source) Amoxicillin / Clavulanate Drug Allergy [facility] Repository (1 source) Cephalexin Drug Allergy 9 [facility] Repository (1 source) Sulfonamides (Antibiotic) Drug allergy (disorder) [facility] Repository (20 sources) Sulfonamides (Antibiotic) Drug Allergy 3 [facility] (20 sources) Amoxicillin-Pot Clavulanate; Translations: [AMOXICILLIN-POT CLAVULANATE] Drug Allergy 1 Nausea Only [facility] (3 sources) Sulfonamides (Antibiotic); Translations: [SULFA (SULFONAMIDE ANTIBIOTICS)] Propensity to adverse reactions to drug (disorder) 2 [facility] Repository Medications Current Medications Medication Drug Class(es) Dates Sig (Normalized) Sig (Original) acetaminophen 325 mg / HYDROcodone bitartrate 5 mg oral tablet (3 sources) Opioid Agonist Start: 10-22-2022 End: 09-04-2023 take 1 tablet by mouth four times daily as needed HYDROcodone-aceta minophen (Andreas) 5-325 MG tablet Take 1 tablet by [...] Receptor Cayla Star t: 09-19 End: 04-10 take 1 tablet by mouth once daily olmesartan-hydroCHLOROthiazide (BENIcar HCT) 20-12.5 MG tablet Indications: Essential (primary) hypertension Take 1 tablet by mouth Daily 07/30/2024 Active ibuprofen 800 mg oral tablet (15 sources) Nonsteroidal Anti-inflammator y Drug Star t: 04-22 End: 12-08 take 1 tablet by mouth every six hours as needed for pain ibuprofen 800 MG tablet Take 800 mg by mouth every 6 (six) hours if needed for moderate pain 05/13/2024 02/23/2025 Discontinued (Therapy completed) linaclotide 0.072 mg oral capsule (9 sources) Guanylate Cyclase-C Agonist Star t: 09-10 End: 04-10 take 1 capsule by mouth before mealtime linaCLOtide (Linzess) 72 MCG capsule Indications: Chronic idiopathic constipation Take 1 capsule (72 mcg) by mouth in the morning. Take before meals. Do not crush or chew.. 10/22/2023 07/30/2024 Discontinued (Other) meloxicam 15 mg oral tablet (20 sources) Nonsteroidal Anti-inflammator y Drug Star t: 01-19 End: 08-23 take 1 tablet by mouth once daily [...] Start: 06-17-2023 take 2 tablets by mo [facility] in the morning rOPINIRole (Requip) 0.5 MG [...] 02/23/2025 03/05/2025 Active [facility] as needed traMADol [...] 03-12-2023 Chronic Other aftercare (1 source) Other rodent exterminator (current) drug therapy; Translations: [OTH [facility] CURRENT DRUG THERAPY] Onset: 10-31-2022 Episodic Other [...] 6.0 ml Estimated blood loss: <1.0 ml [facility] e Complexity: Intermediate Final length (cm): 2.3 [...] uncontrollable bleeding, or complications. Dressing type: bandage [facility] XR FOOT RT MIN 3Von 01-28-[address] [place] [address] XRay Report Signed Patient: BERENICE SILVA MR#: [id number] : 1945 Acct:[id number] Age/Sex: 79 / F ADM Date: 01/27/25 Loc: RAD Attending Dr: Anup John D.P.M. Ordering Physician: Anup John D.P.M. Date of Service: 01/27/25 Procedure(s): XR foot RT min 3V Accession Number(s): [id number] cc: KVNG LINTON ; Anup John D.P.M. The [place] [id number] Patient Name: BERENICE SILVA MRN: [facility]:[id number] date: 1945 Sex: F Assigned Patient Location: [facility] Current Patient Location: Accession/Order Number: [id number] Exam Date: 01/27/2025 15:38 Report Date: 01/27/2025 [...] Fish M.D. 01/27/2025 3:41 PM Dictation Location: [place] [address] Electronically authenticated by: [id number] Y Date: 01/27/2025 15:41 Dictated By: Lew Fish D.O. Signed By: 01/27/25 1543 DD/ 1541 TD/TT: Microelectronics Engineer: [facility] Radiology, Radiologist, MD - 01/27/2025 [place] [address] XRay Report Signed Patient: BERENICE SILVA MR#: [id number] : 1945 Acct:[id number] Age/Sex: 79 / F ADM Date: 01/27/25 Loc: [facility] Attending Dr: Anup John D.P.M. Ordering Physician: Anup John D.P.M. Date of Service: 01/27/25 Procedure(s): XR foot RT min 3V Accession Number(s): [id number] cc: KVNG LINTON ; Anup John D.P.M. The [place] [address] Patient Name: BERENICE SILVA MRN: [id number] date: 1945 Sex: F Assigned Patient Location: [facility] Current Patient Location: Accession/Order Number: [id number] Exam Date: 01/27/2025 15:38 Report Date: 01/27/2025 [...] Fish M.D. 01/27/2025 3:41 PM Dictation Location: [place] [address] Electronically authenticated by: [id number] Y Date: 01/27/2025 15:41 Dictated By: eLw Fish D.O. Signed By: 01/27/25 1543 DD/ 1541 TD/TT: Microelectronics Engineer: [facility] [employer] Radiology Study observation (narrative) [facility] XR FOOT RT MIN 3VOrdered By: Radiologist Radiology on 01-27-2025 [facility] [employer] Work Phone: CBC (INCLUDES DIFF/PLT)on Basophils (Bld) [#/Vol] 0.053 10*3/uL Normal 0-200 [facility] Comment on above: Performed By: #### 6 399, 7770, 34206 #### [facility] [address], [address] [place] [phone] Policyholder Information Clerk: Keagan Holly MD Basophils/100 WBC (Bld) 1.0 % Normal [facility] Comment on above: Performed By: #### 6 399, 7600, 25387 #### [facility] of [place] [address] Policyholder Information Clerk: Keagan Holly MD Eosinophils (Bld) [#/Vol] 0.143 10*3/uL Normal 15-500 [facility] Comment on above: Performed By: #### 6 399, 7600, 96921 #### [facility] of [place] [address] Policyholder Information Clerk: Keagan Holly MD Eosinophils/100 WBC (Bld) 2.7 % Normal [facility] Comment on above: Performed By: #### 6 399, 7600, 85926 #### [facility] [place] [address] Policyholder Information Clerk: Keagan Holly MD Erythrocyte distribution width (RBC) [Ratio] 11.9 % Normal 11.0-15.0 [facility] Comment on above: Performed By: #### 6 399, 7600, 09162 #### [facility] of [place] [address] Policyholder Information Clerk: Keagan Holly MD Hematocrit (Bld) [Volume fraction] 38.1 % Normal 35.0-45.0 [facility] Comment on above: Performed By: #### 6 399, 7600, 10824 #### [facility] of [place] [address] Policyholder Information Clerk: Keagan Holly MD Hemoglobin (Bld) [Mass/Vol] 13.1 g/dL Normal 11.7-15.5 [facility] Comment on above: Performed By: #### 6 399, 7600, 17751 #### [facility] of [place] [address] Policyholder Information Clerk: Keagan Holly MD Lymphocytes (Bld) [#/Vol] 1.988 10*3/uL Normal 850-3900 [facility] Comment on above: Performed By: #### 6 399, 7600, 27460 #### [facility] [place] [address] Policyholder Information Clerk: Keagan Holly MD Lymphocytes/100 WBC (Bld) 37.5 % Normal [facility] Comment on above: Performed By: #### 6 399, 7600, 06199 #### [facility] [place] [address] Policyholder Information Clerk: Keagan Holly MD MCH (RBC) [Entitic mass] 31.3 pg Normal 27.0-33.0 [facility] Comment on above: Performed By: #### 6 399, 7600, 99829 #### [facility] [place] [address] Policyholder Information Clerk: Keagan Holly MD MCHC (RBC) [Mass/Vol] 34.4 [...] condition. Performed By: #### 6 399, 7600, 93310 #### [facility] of [place] [address] Policyholder Information Clerk: Keagan Holly MD MCV (RBC) [Entitic vol] 91.1 fL Normal 80.0-100.0 [facility] Comment on above: Performed By: #### 6 399, 7600, 55904 #### [facility] [place] [address] Policyholder Information Clerk: Keagan Holly MD Monocytes (Bld) [#/Vol] 0.392 10*3/uL Normal 200-950 [facility] Comment on above: Performed By: #### 6 399, 7600, 69966 #### [facility] [place] [address] Policyholder Information Clerk: Keagan Holly MD Monocytes/100 WBC (Bld) 7.4 % Normal [facility] Comment on above: Performed By: #### 6 399, 7600, 11063 #### [facility] [place] [address] Policyholder Information Clerk: Keagan Holly MD Neutrophils (Bld) [#/Vol] 2.724 10*3/uL Normal 4497-2629 [facility] Comment on above: Performed By: #### 6 399, 7600, 60565 #### [facility] [place] [address] Policyholder Information Clerk: Keagan Holly MD Neutrophils/100 WBC (Bld) 51.4 % Normal [facility] Comment on above: Performed By: #### 6 399, 7600, 72832 #### [facility] [place] [address] Policyholder Information Clerk: Keagan Holly MD Platelet mean volume (Bld) [Entitic vol] 9.1 fL Normal 7.5-12.5 [facility] Comment on above: Performed By: #### 6 399, 7600, 70377 #### [facility] [place] [address] Policyholder Information Clerk: Keagan Holly MD Platelets (Bld) [#/Vol] 335 10*3/uL Normal 140-400 [facility] Comment on above: Performed By: #### 6 399, 7600, 40294 #### [facility] [place] [address] Policyholder Information Clerk: Keagan Holly MD RBC (Bld) [#/Vol] 4.18 10*6/uL Normal 3.80-5.10 [facility] Comment on above: Performed By: #### 6 399, 7600, 72225 #### [facility] [place] [address] Policyholder Information Clerk: Keagan Holly MD WBC (Bld) [#/Vol] 5.3 10*3/uL Normal 3.8-10.8 [facility] Comment on above: Performed By: #### 6 399, 7600, 88548 #### [facility] of [address], [address] [place] [address] Policyholder Information Clerk: Keagan Holly MD [facility]ABOLIC [facility] 08-04-2024 Albumin [Mass/Vol] 4.4 g/dL Normal 3.6-5.1 [facility] Comment on above: Performed By: #### 6 399, 7600, 49655 #### [facility] of [address], [address] [place] [address] Policyholder Information Clerk: Keagan Holly MD Albumin/Globulin [Mass ratio] 1.8 {ratio} Normal 1.0-2.5 [facility] Comment on above: Performed By: #### 6 399, 7600, 68854 #### [facility] [place] [address] Policyholder Information Clerk: Keagan Holly MD ALP [Catalytic activity/Vol] 68 U/L Normal 37-153 [facility] Comment on above: Performed By: #### 6 399, 7600, 05392 #### [facility] [place] [address] Policyholder Information Clerk: Keagan Holly MD ALT [Catalytic activity/Vol] 15 U/L Normal 6-29 [facility] Comment on above: Performed By: #### 6 399, 7600, 67167 #### [facility] [place] [address] Policyholder Information Clerk: Keagan Holly MD AST [Catalytic activity/Vol] 18 U/L Normal 10-35 [facility] Comment on above: Performed By: #### 6 399, 7600, 62462 #### [facility] [place] [address] Policyholder Information Clerk: Keagan Holly MD Bilirubin [Mass/Vol] 0.5 mg/dL Normal 0.2-1.2 [facility] Comment on above: Performed By: #### 6 399, 7600, 17433 #### [facility] of [address] [place] [address] Policyholder Information Clerk: Keagan Holly MD BUN/CREATININE RATIO SEE NOTE: Normal 6- [facility] Comment on above: Result Comment: Not Reported: BUN and Creatinine are within reference range. Performed By: #### 6 399, 7600, 89629 #### [facility] of [address], [address] [place] [address] Policyholder Information Clerk: Keagan Holly MD Calcium [Mass/Vol] 9.5 mg/dL Normal 8.6-10.4 [facility] Comment on above: Performed By: #### 6 399, 7600, 70790 #### [facility] of [address], [address] [place] [address] Policyholder Information Clerk: Keagan Holly MD Chloride [Moles/Vol] 100 mmol/L Normal 98-110 [facility] Comment on above: Performed By: #### 6 399, 7600, 02875 #### [facility] of [address], [address] [place] [address] Policyholder Information Clerk: Keagan Holly MD CO2 [Moles/Vol] 31 mmol/L Normal 20-32 [facility] Comment on above: Performed By: #### 6 399, 7600, 88616 #### [facility] of [place] [address] Policyholder Information Clerk: Keagan Holly MD Creatinine [Mass/Vol] 0.74 mg/dL Normal 0.60-1.00 [facility] Comment on above: Performed By: #### 6 399, 7600, 77265 #### [facility] of [address], [address] [place] [address] Policyholder Information Clerk: Keagan Holly MD GFR/1.73 sq M.predicted among non-blacks MDRD (S/P/Bld) [Vol rate/Area] 84 mL/min/{1.73_m2} Normal > OR = 60 [facility] Comment on above: Performed By: #### 6 399, 7600, 02889 #### [facility] of [address], [address] [place] [address] Policyholder Information Clerk: Keagan Holly MD Globulin (S) [Mass/Vol] 2.5 g/dL Normal 1.9-3.7 [facility] Comment on above: Performed By: #### 6 399, 7600, 57848 #### [facility] of [place] [address] Policyholder Information Clerk: Keagan Holly MD Glucose [Mass/Vol] 88 mg/dL Normal 65-99 [facility] Comment on above: Result Comment: Fasting reference interval Performed By: #### 6 399, 7600, 44279 #### [facility] [place] [address] Policyholder Information Clerk: Keagan Holly MD Potassium [Moles/Vol] 4.0 mmol/L Normal 3.5-5.3 [facility] Comment on above: Performed By: #### 6 399, 7600, 36744 #### [facility] [place] [address] Policyholder Information Clerk: Keagan Holly MD Protein [Mass/Vol] 6.9 g/dL Normal 6.1-8.1 [facility] Comment on above: Performed By: #### 6 399, 7600, 38874 #### [facility] [place] [address] Policyholder Information Clerk: Keagan Holly MD Sodium [Moles/Vol] 138 mmol/L Normal 135-146 [facility] Comment on above: Performed By: #### 6 399, 7600, 03972 #### [facility] [place] [address] Policyholder Information Clerk: Keagan Holly MD Urea nitrogen [Mass/Vol] 16 mg/dL Normal 7-25 [facility] Comment on above: Performed By: #### 6 399, 7600, 62300 #### [facility] [place] [address] Policyholder Information Clerk: Keagan Holly MD LIPID PANEL, [facility] 07-22 Cholesterol [Mass/Vol] 261 mg/dL High <200 [facility] Comment on above: Order Comment: FASTI NG:YES FASTING: YES Performed By: #### 6 399, 7600, 64663 #### [facility] [address], [address] [place], [place] [id number] Policyholder Information Clerk: Keagan Holly MD Cholesterol in HDL [Mass/Vol] 66 mg/dL Normal > OR = 50 [facility] Comment on above: Order Comment: FASTI NG:YES FASTING: YES Performed By: #### 6 399, 7600, 49760 #### [facility] [address], [address] [place] [address] Policyholder Information Clerk: Keagan Holly MD Cholesterol in LDL [Mass/Vol] 161 mg/dL High [facility] Comment on above: Order Comment: FASTI NG:YES FASTING: YES Result Comment: Refe rence range: <100 Desirable range <100 mg/dL for primary prevention; <70 mg/dL for patients with CHD or diabetic patients with > or = 2 CHD risk factors. LDL-C is now calculated using the Edwin-Juan calculation, which is a validated novel method providing better accuracy than the Friedewald equation in the estimation of LDL-C. Edwin SS et al. LUL. 2013;310(19): 7709-1247 (http://education.YourPOV.TV/faq/TPF310) Performed By: #### 6 399, 7600, 92298 #### [facility] [address], [address] [place] [address] Policyholder Information Clerk: Keagan Holly MD Cholesterol.total/C holesterol in HDL [Mass ratio] 4.0 {ratio} Normal <5.0 [facility] Comment on above: Order Comment: FASTI NG:YES FASTING: YES Performed By: #### 6 399, 7600, 63425 #### [facility] [address], [address] [place], [place] [id number] Policyholder Information Clerk: Keagan Holly MD NON HDL CHOLESTEROL 195 mg/dL (calc) High <130 [facility] Comment on above: Order Comment: FASTI NG:YES FASTING: YES Result Comment: For patients with diabetes plus 1 major ASCVD risk factor, treating to a non-HDL-C goal of <100 mg/dL (LDL-C of <70 mg/dL) is considered a therapeutic option. Performed By: #### 6 399, 7600, 29258 #### [facility] [address], [address] [place] [address] Policyholder Information Clerk: Keagan Holly MD Triglyceride [Mass/Vol] 181 mg/dL High <150 [facility] Comment on above: Order Comment: FASTI NG:YES FASTING: YES Performed By: #### 6 399, 7600, 09039 #### [facility] [address], [address] [place] [address] Policyholder Information Clerk: Keagan Holly MD VITAMIN D,25-OH,TOTAL,IAon 0 08-04-2024 [...] D, (D2,D3), LC/MS/MS is recommended: order code 93077 (patients >2yrs). See Note 1 Note 1 For additional information, please refer to http://education.YourPOV.TV/faq/UFG711 (This link is being provided for informational/ educational purposes only.) Performed By: #### 6 399, 7600, 13236 #### [facility] [address], [address] [place] [address] Policyholder Information Clerk: Keagan Holly MD CT COLONOGRAPHY SCREENINGon 01-21-2024 [...] presence or absence of which will not waste/materials exchange specialist of the patient. In addition, digital rectal [...] Curry MD on 01/21/2024 8:17 AM Normal [facility] Cult,Bloodon 10-31-2023 Cult,Blood Specimen Description .BLOOD Special Requests 20ML RAC Culture NO GROWTH 5 DAYS Report Status FINAL 10/31/2023 Normal [facility] Comment on above: Performed By: #### B C #### [facility] [address] [place], [place] [id number] Pencil Sorter: Ayden Regan MD Cult,Blood Specimen Description .BLOOD Special Requests 20ML LFT WRIST Culture NO GROWTH 5 DAYS Report Status FINAL 10/31/2023 Normal [facility] Comment on above: Performed By: #### B C #### [facility] [address] [place], [place] [id number] Pencil Sorter: Ayden Regan MD CBC with Diffon 10-27-2023 Abs. Basophil 0.03 k/uL Normal 0.00-0.20 [facility] Comment on above: Performed By: #### L ACDS #### [address] [place], [place] [id number] Pencil Sorter: Ayden Regan MD Abs.Imm.Granulocyte 0.03 k/uL Normal 0.00-0.30 [facility] Comment on above: Performed By: #### L ACDS #### [address] [place], [place] [address] Pencil Sorter: Ayden Regan MD Abs.Neutrophil (Seg) 7.25 k/uL Normal 1.50-8.10 [facility] Comment on above: Performed By: #### L ACDS #### [address] [place], [place] [id number] Pencil Sorter: Ayden Regan MD Basophils/100 WBC (Bld) 0 % Normal 0-2 [facility] Comment on above: Performed By: #### L ACDS #### [address] [place], [place] [address] Pencil Sorter: Ayden Regan MD Eosinophils (Bld) [#/Vol] 0.04 10*3/uL Normal 0.00-0.44 [facility] Comment on above: Performed By: #### L ACDS #### [facility] [address] [place], [place] [id number] Pencil Sorter: Ayden Regan MD Eosinophils/100 WBC (Bld) 0 % Low 1-4 [facility] Comment on above: Performed By: #### L ACDS #### [address] [place], [place] [id number] Pencil Sorter: Ayden Regan MD Erythrocyte distribution width (RBC) [Ratio] 12.5 % Normal 11.8-14.4 [facility] Comment on above: Performed By: #### L ACDS #### [address] [place], [facility] Pencil Sorter: Ayden Regan MD Hematocrit (Bld) [Volume fraction] 29.2 % Low 36.3-47.1 [facility] Comment on above: Performed By: #### L ACDS #### [address] [place], [facility] Pencil Sorter: Ayden Regan MD Hemoglobin (Bld) [Mass/Vol] 9.7 g/dL Low 11.9-15.1 [facility] Comment on above: Performed By: #### L ACDS #### [address] [place], [place] [id number] Pencil Sorter: Ayden Regan MD Immature granulocytes/100 WBC (Bld) 0 % Normal 0 [facility] Comment on above: Performed By: #### L ACDS #### [address] [place], [facility] Pencil Sorter: Ayden Regan MD Lymphocytes (Bld) [#/Vol] 1.83 10*3/uL Normal 1.10-3.70 [facility] Comment on above: Performed By: #### L ACDS #### [address] [place], [place] [id number] Pencil Sorter: Ayden Regan MD Lymphocytes/100 WBC (Bld) 18 % Low 24-43 [facility] Comment on above: Performed By: #### L ACDS #### [facility] [address] [place], [place] [id number] Pencil Sorter: yAden Regan MD MCH (RBC) [Entitic mass] 30.1 pg Normal 25.2-33.5 [facility] Comment on above: Performed By: #### L ACDS #### [facility] [address] [place], [place] [address] Pencil Sorter: Ayden Regan MD MCHC (RBC) [Mass/Vol] 33.2 g/dL Normal 28.4-34.8 [facility] Comment on above: Performed By: #### L ACDS #### [address] [place], [place] [address] Pencil Sorter: Ayden Regan MD MCV (RBC) [Entitic vol] 90.7 fL Normal 82.6-102.9 [facility] Comment on above: Performed By: #### L ACDS #### [address] [place], [place] [address] Pencil Sorter: Ayden Regan MD Monocytes (Bld) [#/Vol] 1.02 10*3/uL Normal 0.10-1.20 [facility] Comment on above: Performed By: #### L ACDS #### [facility] [address] [place], [facility] Pencil Sorter: Ayden Regan MD Monocytes/100 WBC (Bld) 10 % Normal 3-12 [facility] Comment on above: Performed By: #### L ACDS #### [facility] [address] [place], [place] [address] Pencil Sorter: Ayden Regan MD Neutrophil (Seg) 71 % High 36-65 [facility] Comment on above: Performed By: #### L ACDS #### [facility] [address] [place], [place] [address] Pencil Sorter: Ayden Regan MD NRBC Automated 0.0 per 100 WBC Normal 0.0 [facility] Comment on above: Performed By: #### L ACDS #### [facility] [address] [place], [facility] Pencil Sorter: Ayden Regan MD Platelet mean volume (Bld) [Entitic vol] 8.7 fL Normal 8.1-13.5 [facility] Comment on above: Performed By: #### L ACDS #### [address] [place] [address] Pencil Sorter: Ayden Regan MD Platelets (Bld) [#/Vol] 237 10*3/uL Normal 138-453 [facility] Comment on above: Performed By: #### L ACDS #### [address] [place], [place] [address] Pencil Sorter: Ayden Regan MD RBC (Bld) [#/Vol] 3.22 10*6/uL Low 3.95-5.11 [facility] Comment on above: Performed By: #### L ACDS #### [address] [place], [facility] Pencil Sorter: Ayden Regan MD WBC (Bld) [#/Vol] 10.2 10*3/uL Normal 3.5-11.3 [facility] Comment on above: Performed By: #### L ACDS #### [address] [place], [place] [id number] Pencil Sorter: Ayden Regan MD Comp Metabolic Pr/rfx MGon 0 10-27-2023 Albumin [Mass/Vol] 3.1 g/dL Low 3.5-5.2 [facility] Comment on above: Performed By: #### L ACDS #### [address] [place], [place] [id number] Pencil Sorter: Ayden Regan MD Albumin/Glob Ratio 1.3 Normal 1.0-2.5 [facility] Comment on above: Performed By: #### L ACDS #### [facility] [address] [place], [place] [id number] Pencil Sorter: Ayden Regan MD Alkaline Phos 80 U/L Normal 35-104 [facility] Comment on above: Performed By: #### L ACDS #### [facility] [address] [place], [place] 3973183 Pencil Sorter: Ayden Regan MD ALT [Catalytic activity/Vol] 9 U/L Normal 5-33 [facility] Comment on above: Performed By: #### L ACDS #### [facility] [address] [place], [place] 1086683 Pencil Sorter: Ayden Regan MD Anion gap [Moles/Vol] 8 mmol/L Low 9-17 [facility] Comment on above: Performed By: #### L ACDS #### [facility] [address] [place] [address] Dr[place], [place] 1252983 Pencil Sorter: Ayden Regan MD AST [Catalytic activity/Vol] 13 U/L Normal <32 [facility] Comment on above: Performed By: #### L ACDS #### [facility] [address] [place], [place] 6095383 Pencil Sorter: Ayden Regan MD Bilirubin [Mass/Vol] 0.6 mg/dL Normal 0.3-1.2 [facility] Comment on above: Performed By: #### L ACDS #### [facility] [address] [place] [address] Pencil Sorter: Ayden Regan MD BUN/CRE Ratio 16 Normal 9-20 [facility] Comment on above: Performed By: #### L ACDS #### [facility] [address] [place] [address] Pencil Sorter: Ayden Regan MD Calcium [Mass/Vol] 8.2 mg/dL Low 8.6-10.4 [facility] Comment on above: Performed By: #### L ACDS #### [facility] [address] [place], [place] 2711983 Pencil Sorter: Ayden Regan MD Chloride [Moles/Vol] 106 mmol/L Normal 98-107 [facility] Comment on above: Performed By: #### L ACDS #### [facility] [address] [place], [place] 4996483 Pencil Sorter: Ayden Regan MD CO2 [Moles/Vol] 26 mmol/L Normal 20-31 [facility] Comment on above: Performed By: #### L ACDS #### [facility] [address] [place], [place] 5404583 Pencil Sorter: Ayden Regan MD Creatinine [Mass/Vol] 0.7 mg/dL Normal 0.5-0.9 [facility] Comment on above: Performed By: #### L ACDS #### [facility] [address] [place] [address] Pencil Sorter: Ayden Regan MD GFR/1.73 sq M.predicted among non-blacks MDRD (S/P/Bld) [Vol rate/Area] mL/min/{1.73_m2} Normal >60 [facility] Comment on above: Result Comment: These results [...] secretion. Performed By: #### L ACDS #### [facility] [address] [place], [place] 6794483 Pencil Sorter: Ayden Regan MD Glucose [Mass/Vol] 97 mg/dL Normal 70-99 [facility] Comment on above: Performed By: #### L ACDS #### [facility] [address] [place], [place] 9195383 Pencil Sorter: Ayden Regan MD Potassium [Moles/Vol] 3.6 mmol/L Low 3.7-5.3 [facility] Comment on above: Performed By: #### L ACDS #### [facility] [address] [place], [place] 5556483 Pencil Sorter: Ayden Regan MD Protein [Mass/Vol] 5.4 g/dL Low 6.4-8.3 [facility] Comment on above: Performed By: #### L ACDS #### [facility] [address] [place] [address] Dr[place], [place] 7087383 Pencil Sorter: Ayden Regan MD Sodium [Moles/Vol] 140 mmol/L Normal 135-144 [facility] Comment on above: Performed By: #### L ACDS #### [address] [place], [place] 3131483 Pencil Sorter: Ayden Regan MD Urea nitrogen [Mass/Vol] 11 mg/dL Normal 8-23 [facility] Comment on above: Performed By: #### L ACDS #### [facility] [address] [place], [place] [id number] Pencil Sorter: Ayden Regan MD Cult,Urineon 10-27-2023 Cult,Urine Specimen Description .URINE,STRAIGHT CATHETER Culture STREPTOCOCCI, BETA HEMOLYTIC GROUP B 10 to 50,000 CFU/ML Report Status FINAL 10/27/2023 Normal [facility] Comment on above: Performed By: #### U RC #### [address] [id number] Pencil Sorter: Nahum Nixon MD [facility] [address] [place] [address] Pencil Sorter: Ayden Regan MD Procalcitoninon 10-27-2023 Procalcitonin 0.06 ng/mL Normal 0.00-0.09 [facility] Comment on above: Result Comment: Suspected [...] entered into the Change in Procalcitonin Calculator ([email or web address]) to determine the patient's Mortality Risk Prognosis In healthy neonates, plasma Procalcitonin (PCT) concentrations increase gradually after , reaching peak values at about 24 hours of age then decrease to normal values below 0.5 ng/mL by 48-72 hours of age. Performed By: #### P RCAL #### [address] [id number] Pencil Sorter: Nahum Nixon MD CBC with Diffon 10-26-2023 Abs. Basophil 0.04 k/uL Normal 0.00-0.20 [facility] Comment on above: Performed By: #### T BRETT MELENDEZ, CP #### [facility] [address] [place] [address] Pencil Sorter: Ayden Regan MD Abs.Imm.Granulocyte 0.04 k/uL Normal 0.00-0.30 [facility] Comment on above: Performed By: #### T BRETT MELENDEZ, CP #### [facility] [address] [place] [address] Pencil Sorter: Ayden Regan MD Abs.Neutrophil (Seg) 9.87 k/uL High 1.50-8.10 [facility] Comment on above: Performed By: #### BRETT ALMANZA, CP #### [address] [place], [facility] Pencil Sorter: Ayden Regan MD Basophils/100 WBC (Bld) 0 % Normal 0-2 [facility] Comment on above: Performed By: #### BRETT ALMANZA, CP #### [address] [place] [id number] Pencil Sorter: Ayden Regan MD Eosinophils (Bld) [#/Vol] 0.06 10*3/uL Normal 0.00-0.44 [facility] Comment on above: Performed By: #### BRETT ALMANZA, CP #### [address] [place], [place] [address] Pencil Sorter: Ayden Regan MD Eosinophils/100 WBC (Bld) 1 % Normal 1-4 [facility] Comment on above: Performed By: #### BRETT ALMANZA, CP #### [address] [place], [facility] Pencil Sorter: Ayden Regan MD Erythrocyte distribution width (RBC) [Ratio] 12.1 % Normal 11.8-14.4 [facility] Comment on above: Performed By: #### BRETT ALMANZA, CP #### [address] [place], [facility] Pencil Sorter: Ayden Regan MD Hematocrit (Bld) [Volume fraction] 37.2 % Normal 36.3-47.1 [facility] Comment on above: Performed By: #### BRETT ALMANZA, CP #### [address] [place], [facility] Pencil Sorter: Ayden Regan MD Hemoglobin (Bld) [Mass/Vol] 12.6 g/dL Normal 11.9-15.1 [facility] Comment on above: Performed By: #### BRETT ALMANZA, CP #### [address] [place], [place] 1806983 Pencil Sorter: Ayden Regan MD Immature granulocytes/100 WBC (Bld) 0 % Normal 0 [facility] Comment on above: Performed By: #### BRETT ALMANZA, CP #### [address] [place] [address] Pencil Sorter: Ayden Regan MD Lymphocytes (Bld) [#/Vol] 0.81 10*3/uL Low 1.10-3.70 [facility] Comment on above: Performed By: #### BRETT ALMANZA, CP #### [address] [place], [facility] Pencil Sorter: Ayden Regan MD Lymphocytes/100 WBC (Bld) 7 % Low 24-43 [facility] Comment on above: Performed By: #### BRETT ALMANZA, CP #### [address] [place], [place] 7088383 Pencil Sorter: Ayden Regan MD MCH (RBC) [Entitic mass] 30.4 pg Normal 25.2-33.5 [facility] Comment on above: Performed By: #### BRETT ALMANZA, CP #### [address] [place], [place] 1696783 Pencil Sorter: Ayden Regan MD MCHC (RBC) [Mass/Vol] 33.9 g/dL Normal 28.4-34.8 [facility] Comment on above: Performed By: #### BRETT ALMANZA, CP #### [address] [place], [place] 6108183 Pencil Sorter: Ayden Regan MD MCV (RBC) [Entitic vol] 89.9 fL Normal 82.6-102.9 [facility] Comment on above: Performed By: #### BRETT ALMANZA, CP #### [facility] [address] [place] [address] Dr[place], [place] 9850183 Pencil Sorter: Ayden Regan MD Monocytes (Bld) [#/Vol] 0.89 10*3/uL Normal 0.10-1.20 [facility] Comment on above: Performed By: #### BRETT ALMANZA, CP #### [address] [place] [address] Pencil Sorter: Ayden Regan MD Monocytes/100 WBC (Bld) 8 % Normal 3-12 [facility] Comment on above: Performed By: #### BRETT ALMANZA, CP #### [address] [place], [place] [address] Pencil Sorter: Ayden Regan MD Neutrophil (Seg) 84 % High 36-65 [facility] Comment on above: Performed By: #### BRETT ALMANZA, CP #### [address] [place], [place] [id number] Pencil Sorter: Ayden Regan MD NRBC Automated 0.0 per 100 WBC Normal 0.0 [facility] Comment on above: Performed By: #### BRETT ALMANZA, CP #### [address] [place], [facility] Pencil Sorter: Ayden Regan MD Platelet mean volume (Bld) [Entitic vol] 8.5 fL Normal 8.1-13.5 [facility] Comment on above: Performed By: #### BRETT ALMANZA, CP #### [address] [place] [address] Pencil Sorter: Ayden Regan MD Platelets (Bld) [#/Vol] 312 10*3/uL Normal 138-453 [facility] Comment on above: Performed By: #### T BRETT MELENDEZ, CP #### [facility] [address] [place], [place] 7156083 Pencil Sorter: Ayden Regan MD RBC (Bld) [#/Vol] 4.14 10*6/uL Normal 3.95-5.11 [facility] Comment on above: Performed By: #### T BRETT MELENDEZ, CP #### [facility] [address] [place], [place] 3919883 Pencil Sorter: Ayden Regan MD WBC (Bld) [#/Vol] 11.7 10*3/uL High 3.5-11.3 [facility] Comment on above: Performed By: #### T BRETT MELENDEZ, CP #### [facility] [address] [place] 8278583 Pencil Sorter: Ayden Regan MD CT HEAD WO CONTRASTon [...] Seven Moreno MD 10/26/23 Final result Normal [facility] Comp Metabolic Profon 2023 Albumin [Mass/Vol] 3.9 g/dL Normal 3.5-5.2 [facility] Comment on above: Performed By: #### T BRETT MELENDEZ, CP #### [facility] [address] [place], [place] [id number] Pencil Sorter: Ayden Regan MD Albumin/Glob Ratio 1.2 Normal 1.0-2.5 [facility] Comment on above: Performed By: #### T BRETT MELENDEZ, CP #### [facility] [address] [place], [place] 5578983 Pencil Sorter: Ayden Regan MD Alkaline Phos 87 U/L Normal 35-104 [facility] Comment on above: Performed By: #### T BRETT MELENDEZ, CP #### [facility] [address] [place], [place] 8942783 Pencil Sorter: Ayden Regan MD ALT [Catalytic activity/Vol] 12 U/L Normal 5-33 [facility] Comment on above: Performed By: #### T BRETT MELENDEZ, CP #### [facility] [address] [place], [place] 6937583 Pencil Sorter: Ayden Regan MD Anion gap [Moles/Vol] 9 mmol/L Normal 9-17 [facility] Comment on above: Performed By: #### T BRETT MELENDEZ, CP #### [facility] [address] [place], [place] 3881183 Pencil Sorter: Ayden Regan MD AST [Catalytic activity/Vol] 15 U/L Normal <32 [facility] Comment on above: Performed By: #### T BRETT MELENDEZ, CP #### [facility] [address] [place], [place] 0771183 Pencil Sorter: Ayden Regan MD Bilirubin [Mass/Vol] 0.4 mg/dL Normal 0.3-1.2 [facility] Comment on above: Performed By: #### T BRETT MELENDEZ, CP #### [facility] [address] [place] [address] Pencil Sorter: Ayden Regan MD BUN/CRE Ratio 16 Normal 9-20 [facility] Comment on above: Performed By: #### T BRETT MELENDEZ, CP #### [facility] [address] [place], [place] 0775783 Pencil Sorter: Ayden Regan MD Calcium [Mass/Vol] 9.2 mg/dL Normal 8.6-10.4 [facility] Comment on above: Performed By: #### T BRETT MELENDEZ, CP #### [facility] [address] [place], [place] 7686183 Pencil Sorter: Ayden Regan MD Chloride [Moles/Vol] 95 mmol/L Low 98-107 [facility] Comment on above: Performed By: #### BRETT ALMANZA, CP #### [facility] [address] [place] [address] Pencil Sorter: Ayden Regan MD CO2 [Moles/Vol] 26 mmol/L Normal 20-31 [facility] Comment on above: Performed By: #### BRETT ALMANZA, CP #### [facility] [address] [place] [address] [place] [address] Pencil Sorter: Ayden Regan MD Creatinine [Mass/Vol] 0.8 mg/dL Normal 0.5-0.9 [facility] Comment on above: Performed By: #### BRETT ALMANZA, CP #### [facility] [address] [place] [address] Pencil Sorter: Ayden Regan MD GFR/1.73 sq M.predicted among non-blacks MDRD (S/P/Bld) [Vol rate/Area] 77 mL/min/{1.73_m2} Normal >60 [facility] Comment on above: Result Comment: These results [...] By: #### T BRETT MELENDEZ, CP #### [facility] [address] [place] [address] [place] [address] Pencil Sorter: Ayden Regan MD Glucose [Mass/Vol] 119 mg/dL High 70-99 [facility] Comment on above: Performed By: #### BRETT ALMANZA, CP #### [address] [place], [place] 2145283 Pencil Sorter: Ayden Regan MD Potassium [Moles/Vol] 3.8 mmol/L Normal 3.7-5.3 [facility] Comment on above: Performed By: #### BRETT ALMANZA, CP #### [address] [place], [place] 1894983 Pencil Sorter: Ayden Regan MD Protein [Mass/Vol] 7.2 g/dL Normal 6.4-8.3 [facility] Comment on above: Performed By: #### BRETT ALMANZA, CP #### [address] [place], [place] 9751683 Pencil Sorter: Ayden Regan MD Sodium [Moles/Vol] 130 mmol/L Low 135-144 [facility] Comment on above: Performed By: #### BRETT ALMANZA, CP #### [address] [place] [address] Pencil Sorter: Ayden Regan MD Urea nitrogen [Mass/Vol] 13 mg/dL Normal 8-23 [facility] Comment on above: Performed By: #### BRETT ALMANZA, CP #### [facility] [address] [place], [place] 2969883 Pencil Sorter: Ayden Regan MD Lactate, Sepsison 10-26-2023 Lactic Acid, Sepsis 1.0 mmol/L Normal 0.5-1.9 [facility] Comment on above: Performed By: #### L ACDS #### [facility] [address] [place] [address] [place], [place] 3481883 Pencil Sorter: Ayden Regan MD Lactic Acid, Sepsis 1.6 mmol/L Normal 0.5-1.9 [facility] Comment on above: Performed By: #### L ACDS #### [address] [place], [place] [id number] Pencil Sorter: Ayden Regan MD Troponinon 10-26-2023 Troponin, High Sens 12 ng/L Normal 0-14 [facility] Comment on above: Result Comment: High Sensitivity Troponin values cannot be compared with other Troponin methodologies. Performed By: #### L ACDS #### [address] [place], [place] 3008883 Pencil Sorter: Ayden Regan MD Troponin, High Sens 12 ng/L Normal 0-14 [facility] Comment on above: Result Comment: High Sensitivity Troponin values cannot be compared with other Troponin methodologies. Performed By: #### T ROPI, CDP, CP #### [facility] [address] [place] [address] [place], [place] [id number] Pencil Sorter: Ayden Regan MD Urinalysis w/ Microon 2023 Bilirubin, SemiQt,Ur Negative Normal NEG [facility] Comment on above: Performed By: #### L ACDS #### [address] [place], [place] [id number] Pencil Sorter: Ayden Regan MD Blood, Urine Negative Normal NEG [facility] Comment on above: Performed By: #### L ACDS #### [facility] [address] [place] [address] [place], [place] 1376083 Pencil Sorter: Ayden Regan MD Clarity (U) Clear Normal CLEAR [facility] Comment on above: Performed By: #### L ACDS #### [facility] [address] [place], [place] 1670783 Pencil Sorter: Ayden Regan MD Color (U) Yellow Normal YEL [facility] Comment on above: Performed By: #### L ACDS #### [facility] [address] [place], [place] 9962483 Pencil Sorter: Ayden Regan MD Epithelial cells LM Ql (Urine sed) 0 TO 2 Normal 0-25 [facility] Comment on above: Performed By: #### L ACDS #### [facility] [address] [place] [address] [place], [place] 1872483 Pencil Sorter: Ayden Regan MD Glucose Ql (U) Negative Normal NEG [facility] Comment on above: Performed By: #### L ACDS #### [facility] [address] [place] [address] Dr. [place], [place] 3470483 Pencil Sorter: Ayden Regan MD Ketones Ql (U) Negative Normal NEG [facility] Comment on above: Performed By: #### L ACDS #### [facility] [address] [place] [address] Dr[place], [place] 0384483 Pencil Sorter: Ayden Regan MD Leukocyte esterase Test strip Ql (U) Negative Normal NEG [facility] Comment on above: Performed By: #### L ACDS #### [facility] [address] [place] [address] [place], [place] 5007283 Pencil Sorter: Ayden Regan MD Nitrite,Ur Negative Normal NEG [facility] Comment on above: Performed By: #### L ACDS #### [facility] [address] [place] [address] Dr[place], [place] 6353483 Pencil Sorter: Ayden Regan MD PH,Ur 6.5 Normal 5.0-9.0 [facility] Comment on above: Performed By: #### L ACDS #### [facility] [address] [place], [place] 8446383 Pencil Sorter: Ayden Regan MD Protein Ql (U) Negative Normal NEG [facility] Comment on above: Performed By: #### L ACDS #### [facility] [address] [place], [place] 3742183 Pencil Sorter: Ayden Regan MD Spec. [place],Ur 1.010 Normal 1.010-1.020 [facility] Comment on above: Performed By: #### L ACDS #### [facility] [address] [place] [address] [place], [place] 8660583 Pencil Sorter: Ayden Regan MD Urine RBC's None Normal 0-2 [facility] Comment on above: Performed By: #### L ACDS #### [facility] [address] [place] [address] Dr. [place], [place] 9682483 Pencil Sorter: Ayden Regan MD Urine WBC's None Normal 0-5 [facility] Comment on above: Performed By: #### L ACDS #### [facility] [address] [place] [address] [place], [place] 7047783 Pencil Sorter: Ayden Regan MD Urobilinogen,Ur Normal Normal 0.0-1.0 [facility] Comment on above: Performed By: #### L ACDS #### [facility] [address] [place] [address] [place], [place] [id number] Pencil Sorter: Ayden Regan MD XR CHEST PORTABLEon 10-26-19 [...] Ayden Siegel MD 10/26/23 Final result Normal [facility] ACID FAST SMEAR AND CXon Acid Fast Culture Negative Normal [facility] Comment on above: Result Comment: No a broderick fast bacilli isolated after 6 weeks. Performed By: #### A FB #### [facility] [address] [place] [address] Dr. Shari Allen Acid Fast Smear Negative Normal [facility] Comment on above: Performed By: #### A FB #### [facility] [address] [place] [address] Dr. Shari Allen [employer] Specimen Processing Concentration Normal [facility] Comment on above: Performed By: #### A FB #### [facility] [address] [place] [address] Dr. Shari Allen FUNGAL CULTUREon 2022 Fungus (Mycology) Culture Final report [facility] Comment on above: Performed By: #### C XFUN #### [facility] [address] [place] [address] Dr. Shari Allen Fungus Stain Final report Normal [facility] Comment on above: Performed By: #### C XFUN #### [facility] [address] [place] [address] Dr. Shari Allen Result 1 Comment Normal [facility] Comment on above: Result Comment: CHINO/ Calcofluor preparation: no fungus observed. Performed By: #### C XFUN #### [facility] [address] [place] [address] Dr. Shari Allen Result Comment: No y east or mold isolated after 4 weeks. CULTURE ANAEROBICon 10-23-19 23 CULTURE ANAEROBIC Culture Observations : NO GROWTH OF ANAEROBES AT 72 HOURS. Normal [facility] Comment on above: Performed By: #### C XFUN #### [facility] [address] [place] [address] [address] Shari Allen CULTURE OTHERon 10-22-2022 CULTURE OTHER Culture Observations : Light growth of NORMAL SKIN MARTHA. Culture Observations: NO GROWTH OF ANAEROBES AT 72 HOURS. Normal [facility] Comment on above: Performed By: #### C XFUN #### [facility] [address] [place] [address] [address] Shari Allen GRAM STAINon 10-22-2022 COMMENTS NO ORGANISMS OBSERVED Normal [facility] Comment on above: Performed By: #### G STAIN #### [facility] [address] [place] [address] Dr. Shari Allen DIPHTHEROIDS Normal [facility] Comment on above: Performed By: #### G STAIN #### [facility] [address] [place] [address] Dr. Shari Allen EPITHELIALS [facility] Comment on above: Performed By: #### G STAIN #### [facility] [address] [place] [address] Dr. Shari Allen FUNGAL ELEMENTS Normal [facility] Comment on above: Performed By: #### G STAIN #### [facility] [address] [place] [address] Dr. Shari YEPEZ NEG BACILLI [facility] Comment on above: Performed By: #### G STAIN #### [facility] [address] [place] [address] Dr. Shari Allen GRAM NEG DIPPLOCOCCI Normal [facility] Comment on above: Performed By: #### G STAIN #### [facility] [address] [place] [address] Dr. Shari YEPEZ POS BACILLI Normal [facility] Comment on above: Performed By: #### G STAIN #### [facility] [address] [place] [address] Dr. Shari Allen GRAM POSITIVE COCCI Normal [facility] Comment on above: Performed By: #### G STAIN #### [facility] Laboratory [address] [place] [address] Dr. Shari Allen GRAM STAIN SOURCE Rt 2nd Toe Normal [facility] Comment on above: Performed By: #### G STAIN #### [facility] Laboratory [address] [address] [address] Shari Allen GS_DIPTH Normal [facility] Comment on above: Performed By: #### G STAIN #### [facility] [address] [place] [address] Dr. Shari Allen WBC RARE Normal [facility] Comment on above: Performed By: #### G STAIN #### [facility] [address] [address] [address] Shari Allen POINT OF CARE GLUCOSEon 04-0 Glucose [Mass/Vol] 109 mg/dL Critically high 74-106 [facility] Comment on above: Performed By: #### P OCGLUC #### [facility] [address] [place] [address] Dr. Shari Allen Glucose [Mass/Vol] 89 mg/dL Normal 74-106 [facility] Comment on above: Performed By: #### P OCGLUC #### [facility] [address] [place] [address] Dr. Shari Allen PROF CHEM 8 (BAS METB)on Anion gap [Moles/Vol] 12.2 mmol/L Normal [facility] Comment on above: Performed By: #### B MP #### [facility] Laboratory [address] [place] [address] Dr. Shari Allen Calcium [Mass/Vol] 9.3 mg/dL Normal 8.5-10.1 [facility] Comment on above: Performed By: #### B MP #### [facility] [address] [place] [address] Dr. Shari Allen Chloride [Moles/Vol] 104 mmol/L Normal 98-107 [facility] Comment on above: Performed By: #### B MP #### [facility] [address] [place] [address] Dr. Shari Allen CO2 [Moles/Vol] 28.5 mmol/L Normal 21.0-32.0 [facility] Comment on above: Performed By: #### B MP #### [facility] [address] [address] [address] Shari Allen Creatinine [Mass/Vol] 0.83 mg/dL Normal 0.55-1.02 [facility] Comment on above: Performed By: #### B MP #### [facility] [address] [place] [address] Dr. Shari Allen EGFR-AF FIJIAN >60 Normal >=60 [facility] Comment on above: Performed By: #### B MP #### [facility] [address] [address] [address] Shari Allen EGFR-NON AF FIJIAN >60 Normal >=60 [facility] Comment on above: Performed By: #### B MP #### [facility] [address] [address] [address] Shari Allen Glucose [Mass/Vol] 89 mg/dL Normal 74-106 [facility] Comment on above: Performed By: #### B MP #### [facility] Laboratory [address] [place] [address] Dr. Shari Allen Potassium [Moles/Vol] 3.7 mmol/L Normal 3.5-5.1 [facility] Comment on above: Performed By: #### B MP #### [facility] [address] [address] [address] Shari Allen Sodium [Moles/Vol] 141 mmol/L Normal 136-145 [facility] Comment on above: Performed By: #### B MP #### [facility] [address] [place] [address] Dr. Shari Allen Urea nitrogen [Mass/Vol] 18.0 mg/dL Normal 7.0-18.0 [facility] Comment on above: Performed By: #### B MP #### [facility] [address] [place] [address] Dr. Shari Allen Urea nitrogen/Creatinine [Mass ratio] 21.7 mg/mg Normal [facility] Comment on above: Performed By: #### B MP #### [facility] [address] [place] [address] Dr. Shari Allen POINT OF CARE GLUCOSEon 04-22 Glucose [Mass/Vol] 86 mg/dL Normal 74-106 [facility] Comment on above: Performed By: #### P OCGLUC #### [facility] [address] [place] [address] Dr. Shari Allen Glucose [Mass/Vol] 95 mg/dL Normal 74-106 [facility] Comment on above: Performed By: #### P OCGLUC #### [facility] [address] [place] [address] Dr. Shari Allen CBC AUTO DIFFon 05-07-2022 BASO # 0.0 103/ul Normal 0.0-0.1 [facility] Comment on above: Performed By: #### C BC #### [facility] [address] [place] [address] Dr. Shari Allen Basophils/100 WBC (Bld) 0.5 % Normal 0.2-2.0 [facility] Comment on above: Performed By: #### C BC #### [facility] [address] [place] [address] Dr. Shari Allen EO # 0.2 103/ul Normal 0.0-0.7 [facility] Comment on above: Performed By: #### C BC #### [facility] [address] [place] [address] Dr. Shari Allen Eosinophils/100 WBC (Bld) 2.9 % Normal 0.9-7.0 [facility] Comment on above: Performed By: #### C BC #### [facility] [address] [place] [address] Dr. Shari Allen Erythrocyte distribution width (RBC) [Ratio] 12.6 % Normal 11.0-15.0 [facility] Comment on above: Performed By: #### C BC #### [facility] [address] [place] [address] Dr. Shari Allen Hematocrit (Bld) [Volume fraction] 38.2 % Normal 36.0-48.0 [facility] Comment on above: Performed By: #### C BC #### [facility] [address] [place] [address] Dr. Shari Allen Hemoglobin (Bld) [Mass/Vol] 12.4 g/dL Normal 12.0-16.0 [facility] Comment on above: Performed By: #### C BC #### [facility] [address] [place] [address] Dr. Shari Allen IG # 0.01 10e3/ul Normal 0.00-0.03 [facility] Comment on above: Performed By: #### C BC #### [facility] [address] [place] [address] Dr. Shari Allen IG % 0.2 % Normal 0.0-0.5 [facility] Comment on above: Performed By: #### C BC #### [facility] [address] [place] [address] Dr. Shari Allen LYMPH # 2.0 103/ul Normal 1.2-3.8 [facility] Comment on above: Performed By: #### C BC #### [facility] [address] [place] [address] Dr. Shari Allen Lymphocytes/100 WBC (Bld) 31.7 % Normal 20.5-60.0 [facility] Comment on above: Performed By: #### C BC #### [facility] [address] [place] [address] Dr. Shari Allen MANUAL DIFF REQ NO Normal [facility] Comment on above: Performed By: #### C BC #### [facility] [address] [place] [address] Dr. Shari Allen MCH (RBC) [Entitic mass] 30.7 pg Normal 26.7-34.0 [facility] Comment on above: Performed By: #### C BC #### [facility] [address] [place] [address] Dr. Shari Allen MCHC (RBC) [Mass/Vol] 32.5 g/dL Normal 29.9-35.2 [facility] Comment on above: Performed By: #### C BC #### [facility] [address] [place] [address] Dr. Shari Allen MCV (RBC) [Entitic vol] 94.6 fL Normal 81.0-99.0 [facility] Comment on above: Performed By: #### C BC #### [facility] [address] [address] [address] Shari Allen MONO # 0.5 103/ul Normal 0.3-0.8 [facility] Comment on above: Performed By: #### C BC #### [facility] [address] [address] [address] Shari Allen Monocytes/100 WBC (Bld) 8.6 % Normal 1.7-12.0 [facility] Comment on above: Performed By: #### C BC #### [facility] [address] [place] [address] Dr. Shari Allen NEUT # 3.5 103/ul Normal 1.4-6.5 [facility] Comment on above: Performed By: #### C BC #### [facility] [address] [place] [address] Dr. Shari Allen Neutrophils/100 WBC (Bld) 56.1 % Normal 43.0-75.0 [facility] Comment on above: Performed By: #### C BC #### [facility] [address] [place] [address] Dr. Shari Allen Platelet mean volume (Bld) [Entitic vol] 8.5 fL Critically low 9.5-13.5 [facility] Comment on above: Performed By: #### C BC #### [facility] [address] [place] [address] Dr. Shari Allen PLT 304 103/ul Normal 150-450 [facility] Comment on above: Performed By: #### C BC #### [facility] [address] [place] [address] Dr. Shari Allen RBC 4.04 106/ul Critically low 4.20-5.40 [facility] Comment on above: Performed By: #### C BC #### [facility] [address] [place] [address] Dr. Shari Allen WBC 6.2 103/ul Normal 4.0-11.0 [facility] Comment on above: Performed By: #### C BC #### [facility] [address] [place] [address] Dr. Shari Allen Covid-19 PCR ([facility])on 04-21 SARS-CoV-2 (COVID-19) RNA LEANN+probe Ql (Unsp spec) Not detected Normal NOT DETECTED [facility] Comment on above: Result Comment: This test is not yet approved or cleared by the [place] FDA. When there are no FDA-approved or cleared tests available, and other criteria are met, FDA can make tests available under an emergency access mechanism called an Emergency Use Authorization (EUA). The EUA for this test is supported by the Country Director of Health and Human Service's (HHS's) declaration [...] SARS-CoV-2. Performed By: #### C XFUN #### [facility] Laboratory [address] [place] [address] Dr. Shari Allen PROF CHEM 8 (BAS METB)on Anion gap [Moles/Vol] 11.1 mmol/L Normal [facility] Comment on above: Performed By: #### B MP #### [facility] [address] [place] [address] Dr. Shari Allen Calcium [Mass/Vol] 9.0 mg/dL Normal 8.5-10.1 [facility] Comment on above: Performed By: #### B MP #### [facility] [address] [place] [address] Dr. Shari Allen Chloride [Moles/Vol] 104 mmol/L Normal 98-107 [facility] Comment on above: Performed By: #### B MP #### [facility] [address] [address] [address] Shari Allen CO2 [Moles/Vol] 29.7 mmol/L Normal 21.0-32.0 [facility] Comment on above: Performed By: #### B MP #### [facility] [address] [address] [address] Shari Allen Creatinine [Mass/Vol] 0.80 mg/dL Normal 0.55-1.02 [facility] Comment on above: Performed By: #### B MP #### [facility] [address] [address] [address] Shari Allen EGFR-AF FIJIAN >60 Normal >=60 [facility] Comment on above: Performed By: #### B MP #### [facility] [address] [address] [address] Shari Allen EGFR-NON AF FIJIAN >60 Normal >=60 [facility] Comment on above: Performed By: #### B MP #### [facility] [address] [address] [address] Shari Allen Glucose [Mass/Vol] 87 mg/dL Normal 74-106 [facility] Comment on above: Performed By: #### B MP #### [facility] [address] [address] [address] Shari Allen Potassium [Moles/Vol] 3.8 mmol/L Normal 3.5-5.1 [facility] Comment on above: Performed By: #### B MP #### [facility] [address] [address] [address] Shari Allen Sodium [Moles/Vol] 141 mmol/L Normal 136-145 [facility] Comment on above: Performed By: #### B MP #### [facility] [address] [address] [address] Shari Allen Urea nitrogen [Mass/Vol] 14.0 mg/dL Normal 7.0-18.0 [facility] Comment on above: Performed By: #### B MP #### [facility] [address] [address] [address] Shari Allen Urea nitrogen/Creatinine [Mass ratio] 17.5 mg/mg Normal [facility] Comment on above: Performed By: #### B #### [facility] Laboratory [address] [address] [address] Shari Allen Vital Signs Date Time Vital Sign Value Performing Clinician Fox romero 02-23-2025 10:110400 Body height 180.3 cm Nicky Hemmer PA Work Phone: [facility] 02-23-2025 10:11-0400 Body mass index (BMI) [Ratio] 20.33 kg/m2 Nicky Hemmer PA Work Phone: [facility] 02-23-2025 10:11040 Body weight 66.13 kg Nicky Hemmer PA Work Phone: [facility] 02-23-2025 10:11-0400 Diastolic blood pressure 82 mm[Hg] Nicky Hemmer PA Work Phone: [facility] 02-23-2025 10:11-0400 Heart rate 71 /min Nicky Hemmer PA Work Phone: [facility] 02-23-2025 10:11-0400 Respiratory rate 16 /min Nicky Hemmer PA Work Phone: [facility] 02-23-2025 10:11-0400 SaO2% (BldA) [Mass fraction] 96 % Nicky Hemmer PA Work Phone: [facility] 02-23-2025 10:11-0400 Systolic blood pressure 136 mm[Hg] Nicky Hemmer PA Work Phone: [facility] 11-11-2024 09:29-0400 Body height 180.3 cm Tsering Starr ENCEPHALOGRAPHER Work Phone: [facility] 11-11-2024 09:29-0400 Body mass index (BMI) [Ratio] 20.73 kg/m2 Tsering Starr ENCEPHALOGRAPHER Work Phone: [facility] 11-11-2024 09:29-0400 Body weight 67.41 kg Tsering Starr ENCEPHALOGRAPHER Work Phone: [facility] 11-11-2024 09:29-0400 Diastolic blood pressure 82 mm[Hg] Tsering Starr ENCEPHALOGRAPHER Work Phone: [facility] 11-11-2024 09:29-0400 Heart rate 64 /min Tsering Starr ENCEPHALOGRAPHER Work Phone: [facility] 11-11-2024 09:29-0400 Respiratory rate 16 /min Tsering Thruston ENCEPHALOGRAPHER Work Phone: [facility] 11-11-2024 09:29-0400 SaO2% (BldA) [Mass fraction] 95 % Tsering Starr ENCEPHALOGRAPHER Work Phone: [facility] 11-11-2024 09:29-0400 Systolic blood pressure 142 mm[Hg] Tsering Starr ENCEPHALOGRAPHER Work Phone: [facility] 07-30-2024 09:10-0500 Body height 180.3 cm Nicky Hemmer PA Work Phone: [facility] 07-30-2024 09:10-0500 Body mass index (BMI) [Ratio] 19.67 kg/m2 Nicky Hemmer PA Work Phone: [facility] 07-30-2024 09:10-0500 Body weight 63.96 kg Nicky Hemmer PA Work Phone: [facility] 07-30-2024 09:10-0500 Diastolic blood pressure 76 mm[Hg] Nicky Hemmer PA Work Phone: [facility] 07-30-2024 09:10-0500 Heart rate 64 /min Nicky Hemmer PA Work Phone: [facility] 07-30-2024 09:10-0500 Respiratory rate 16 /min Nicky Hemmer PA Work Phone: [facility] 07-30-2024 09:10-0500 SaO2% (BldA) [Mass fraction] 99 % Nicky Hemmer PA Work Phone: [facility] 07-30-2024 09:10-0500 Systolic blood pressure 118 mm[Hg] Nicky Hemmer PA Work Phone: [facility] 05-04-2024 15:10-0400 Body height 180.3 cm Kvng Linton MD Work Phone: [facility] 05-04-2024 15:10-0400 Body mass index (BMI) [Ratio] 19.25 kg/m2 Kvng Linton MD Work Phone: [facility] 05-04-2024 15:10-0400 Body weight 62.6 kg Kvng Linton MD Work Phone: [facility] 05-04-2024 15:10-0400 Diastolic blood pressure 74 mm[Hg] Kvng Linton MD Work Phone: [facility] 05-04-2024 15:10-0400 Heart rate 77 /min Kvng Linton MD Work Phone: [facility] 05-04-2024 15:10-0400 SaO2% (BldA) [Mass fraction] 100 % Kvng Linton MD Work Phone: [facility] 05-04-2024 15:10-0400 Systolic blood pressure 128 mm[Hg] Kvng Linton MD Work Phone: [facility] 09-04-2023 11:26-0500 Body height 180.3 cm Kvng Linton MD Work Phone: [facility] 09-04-2023 11:26-0500 Body mass index (BMI) [Ratio] 19.8 kg/m2 Kvng Linton MD Work Phone: [facility] 09-04-2023 11:26-0500 Body weight 64.41 kg Kvng Linton MD Work Phone: [facility] 09-04-2023 11:26-0500 Diastolic blood pressure 62 mm[Hg] Kvng Linton MD Work Phone: [facility] 09-04-2023 11:26-0500 Heart rate 61 /min Kvng Linton MD Work Phone: [facility] 09-04-2023 11:26-0500 SaO2% (BldA) [Mass fraction] 99 % Kvng Linton MD Work Phone: [facility] 09-04-2023 11:26-0500 Systolic blood pressure 106 mm[Hg] Kvng Linton MD Work Phone: [facility] Encounters Encounter Date Encounter Type Care Provider Facility Start: 03-16-2025 End: 03-16-2025 ambulatory KATLIN ROMERO Not Available Start: 03-16-2025 End: 03-16-2025 Postop follow up visit related to original px Katlin Romero MD Work Phone: [facility] Comment on above: Encounter for remova l of sutures Start: 03-16-2025 End: 03-16-2025 Bamboo flowsheet Katlin Romero MD Work Phone: [facility] Start: 03-16-2025 End: 03-16-2025 Bamboo flowsshelly Romero MD Work Phone: [facility] Start: 03-02-2025 End: 03-02-2025 Patient encounter procedure Katlin Romero MD Work Phone: [facility] Comment on above: Epidermal inclusion cyst (Primary Dx); Pain Start: 03-02-2025 End: 03-02-2025 ambulatory KATLIN ROMERO Not Available Start: 03-02-2025 End: 03-02-2025 Bamboo flowsheet Katlin Romero MD Work Phone: [facility] Start: 03-02-2025 End: 03-02-2025 Bamboo flowsheet Katlin Romero MD Work Phone: [facility] Start: 02-23-2025 End: 02-23-2025 Bamboo flowsheet Nicky TURNER Work Phone: [facility] [place] [facility] Start: 02-23-2025 End: 02-23-2025 Bamboo flowsheet Nicky TURNER Work Phone: [facility] [place] [facility] Start: 02-23-2025 End: 02-23-2025 Patient encounter procedure Nicky TURNER Work Phone: [facility] Comment on above: Medicare annual [facility] visit, subsequent (Primary Dx); ACP (advance care [...] 11-11-2024 End: 11-11-2024 Bamboo flowsheet Tsering Starr ENCEPHALOGRAPHER Work Phone: [facility] Start: 11-11-2024 End: 11-11-2024 Bamboo flowsheet Tsering Starr ENCEPHALOGRAPHER Work Phone: [facility] Start: 11-11-2024 End: 11-11-2024 Office outpatient visit 25 minutes Tsering Starr ENCEPHALOGRAPHER Work Phone: [facility] Comment on [...] Start: 08-25-2024 End: 08-31-2024 Telephone encounter Nicky TURNER Work Phone: [facility] [...] episode Start: 07-30-2024 End: 07-30-2024 ambulatory NICKY JANERASHAWN Not Available Start: 06-30-2024 End: 07-01-2024 Refill [...] Evaluation and management of inpatient BRITTANY DEGROOT [facility] Start: 03-13-2024 End: 03-14-2024 Evaluation and management of inpatient [facility] Start: 03-13-2024 End: 03-13-2024 Evaluation and management of inpatient [facility] Start: 03-05-2024 End: 03-05-2024 ambulatory KVNG LINTON [facility] Start: 02-25-2024 End: 02-25-2024 ambulatory SEBASTIAN LAWSON [facility] Start: 02-12-2024 End: 02-12-2024 ambulatory [facility] Start: 01-16-2024 End: 01-16-2024 ambulatory [facility] Start: 12-20-2023 End: 12-20-2023 Evaluation and management of inpatient AYDEN LAN [facility] Start: 12-19-2023 End: 12-20-2023 Evaluation and management of inpatient [facility] Start: 11-28-2023 End: 11-28-2023 ambulatory JESUS Newsome BINGHAM [facility] Start: 10-26-2023 End: 10-27-2023 [facility] Start: 09-05-2023 ambulatory Facility:[facility] Start: 09-04-2023 Bamboo flowsheet Kvng jones MD [...] Start: 10-19-2022 Encounter for preprocedural cardiovascular examination [facility] Start: 10-19-2022 Encounter for preprocedural laboratory examination [facility] Start: 10-16-2022 End: 10-17-[address] KVNG LINTON Facility:[facility] Start: 10-16-2022 End: 10-17-2022 Encounter for preprocedural cardiovascular examination DR KVNG LINTON Facility:[facility] Start: 10-09-2022 End: 10-10-[address] KNVG LINTON Facility:[facility] Start: 09-25-2022 End: 09-26-[address] KVNG LINTON Facility:[facility] Start: 09-18-2022 End: 09-19-[address] KVNG LINTON Facility:[facility] Start: 07-27-2022 End: 07-28-[address] KVNG LINTON Facility:[facility] Start: 06-19-2022 End: 06-20-[address] KVNG LINTON Facility:[facility] Start: 06-01-2022 End: 06-02-2022 ambulatory ANUP Anderson [facility]IGHLANDER Facility:[facility] Start: 05-25-2022 End: 05-26-2022 ambulatory ANUP [...] PETER D HIGHLANDER Facility:[facility] Start: 01-11-2022 End: 06-24-2022 ambulatory PETER D HIGHLANDER Facility:[facility] Start: 01-04-2022 End: 01-04-2022 [...] Dermatology [address] [place] [id number] Katlin Romero MD [address] [place] [address] [facility] Start: 03-02-2025 End: 03-02-2025 Patient encounter procedure [facility] Comment on above: Arrived Start: 02-23-2025 End: 02-23-2025 Patient encounter procedure 02/23/2025 10:00 AM EDT Office Visit [facility] [address] [place] [address] Nicky Riddle PA [address] [place] [address] Arrived [facility] Comment on above: Arrived Start: 02-05-2025 Medicare Annual Wellness (AWV) Medicare Annual Wellness (AWV) [facility] Start: 01-06-2025 End: 01-06-2025 Patient encounter procedure 01/06/2025 11:00 AM EDT Office Visit [facility] [address] [place] [address] Tsering Starr NP [address] [place] [address] [facility] Start: 12-30-2024 End: 12-30-2024 Patient encounter procedure 12/30/2024 12:50 PM EDT Office Visit [facility] [address] [place] [id number] Gabriela Gilman, PA [address] [place] [address] Arrived [facility] Comment on above: Arrived Start: 11-23-2024 End: 11-23-2024 Patient encounter procedure 11/23/2024 4:00 PM EDT Office Visit [facility] [address] [place] [address] Kvng Linton MD [address] [place] [address] [facility] Start: 11-11-2024 End: 11-11-2024 Patient encounter procedure 11/11/2024 9:30 AM EDT Office Visit [facility] [address] [place] [address] Tsering Starr NP [address] [place] [address] Arrived [facility] Comment on above: [...] of sepsis Expected: 07/30/2024 (Approximate), Expires: 07/30/2025 [facility] Work Phone: Comment on above: Expected: 07/30/2024 (Approximate), Expi res: 07/30/2025 Start: 07-30-2024 End: 07-30-2025 Comprehensive metabolic 2000 panel - Serum or Plasma Comprehensive metabolic panel Lab Routine Essential (primary) hypertension (CMS/HCC) Expected: 07/30/2024 (Approximate), Expires: 07/30/2025 [facility] Comment on above: Expected: 07/30/2024 (Approximate), Expi res: 07/30/2025 Start: 07-30-2024 End: 07-30-2025 Lipid 1996 panel - Serum or Plasma Lipid panel Lab Routine Essential (primary) hypertension (CMS/HCC) Expected: 07/30/2024 (Approximate), Expires: 07/30/2025 [facility] Comment on above: Expected: 07/30/2024 (Approximate), Expi res: 07/30/2025 Start: 07-30-2024 End: 07-30-2024 Patient encounter procedure 07/30/2024 9:00 AM EST Office Visit [facility] [address] [place] [address] Nicky Riddle PA [address] [place] [address] Arrived [facility] Comment on above: Arrived Start: 05-04-2024 End: 05-04-2024 Patient encounter procedure 05/04/2024 3:15 PM EDT Office Visit [facility] [address] [place] [address] Kvng Linton MD [address] [place] [address] Arrived [facility] Comment on above: Arrived Start: 03-22-2024 Influenza vaccination Influenza Vaccine (#1) [facility] Start: 09-04-2023 End: 09-04-2025 Echocardiogram 2D complete Echocardiogram 2D complete Echocardiography Routine TIA (transient ischemic attack) Expected: 09/04/2023 (Approximate), Expires: 09/04/2025 [facility] Work Phone: Comment on above: Expected: 09/04/2023 (Approximate), Expi res: 09/04/2025 Start: 09-04-2023 End: 09-04-2023 Patient encounter procedure 09/04/2023 11:30 AM EST Office Visit [facility] [address] [facility] [address] [place] [address] Kvng Linton MD [address] [facility] [address] [place] [address] Arrived [facility] Comment on above: Arrived Start: 05-07-2023 Medicare Annual Wellness (AWV) Medicare Annual Wellness (AWV) [facility] Start: 03-22-2023 Influenza vaccination Influenza Vaccine (#1) [facility] Start: 1945 Screening for malignant neoplasm of colon [facility] Dermatopathology exam Dermatopat hology exam Pathology and Cytology Timed Epidermal inclusion cyst Release Upon Ordering for 1 Occurrences starting 03/02/2025 [facility] Work Phone: Comment on above: Release Upon Ordering for 1 Occurrences starting 03/02/2025 Immunizations Immunization Date Immunization Notes Care Provider Fa [facility] 07-05-2022 Influenza, High-dose Seasonal, Quadrivalent, Preservative Free Kvng Linton MD Work Phone: [facility] 07-05-2022 influenza virus vacc ine, unspecified formulation Kvng Linton MD Work Phone: [facility] 05-03-2021 influenza, high dose seasonal, preservative-free Kvng Linton MD Work Phone: [facility] 04-12-2020 Influenza, High-dose Seasonal, Quadrivalent, Preservative Free Kvng Linton MD Work Phone: [facility] 04-12-2020 pneumococcal conjuga te vaccine, 13 valjose Linton MD Work Phone: [facility] 04-05-2020 influenza, high dose seasonal, preservative-free Kvng Linton MD Work Phone: [facility] 04-05-2020 pneumococcal polysaccharide vaccine, 23 valjose Linton MD Work Phone: [facility] 07-02-2019 influenza, high dose seasonal, preservative-free Kvng Linton MD Work Phone: [facility] 06-05-2018 Influenza, injectabl e, Madin [place] Canine Kidney, preservative free, quadrivalent Kvng Linton MD Work Phone: [facility] 04-23-2018 seasonal influenza, intradermal, preservative free Kvng Linton MD Work Phone: [facility] 04-23-2016 influenza, injectabl e, quadrivalent, contains preservative Kvng Linton MD Work Phone: [facility] 11-16-2013 pneumococcal polysaccharide vaccine, 23 valent Kvng Linton MD Work Phone: [facility] 01-21-2012 tetanus toxoid, redu nithin diphtheria toxoid, and acellular pertussis vaccine, adsorbed Kvng Linton MD Work Phone: [facility] Payers Date Payer Category Payer Medicare [id number] 2023 Medicare (Managed Care) RASHID LU [id number] 2023 Medicare [id number] 2013 Medicare [id number] 1959 Medicare [id number] 1959 Unknown [id number] 1947 Unknown [id number] 2.16.840.1.269707.3.579.2. 593 1947 Unknown [id number] 2.16.840.1.270126.3.579.2. 593 1947 Unknown [id number] 2.16.840.1.595317.3.579.2. 593 1947 Unknown [id number] 2.16.840.1.302777.3.579.2. 593 1947 Unknown [id number] 2.16.840.1.187968.3.579.2. 593 1947 Unknown [id number] 2.16840.1.095129.3.579.2. 593 1947 Unknown [id number] 2.16.840.1.925096.3.579.2. 593 1947 Unknown [id number] 2.16.840.1.760153.3.579.2. 593 1947 Unknown [id number] 2.16.840.1.258742.3.579.2. 593 1947 Unknown [id number] 2.16.840.1.641049.3.579.2. 593 1947 Unknown [id number] 2.16.840.1.545124.3.579.2. 593 1947 Unknown [id number] 2.16.840.1.322038.3.579.2. 593 1947 Unknown [id number] 2.16.840.1.172672.3.579.2. 593 1947 Unknown [id number] 2.16.840.1.055118.3.579.2. 593 1947 Unknown [id number] 2.16.840.1.794199.3.579.2. 593 1947 Unknown [id number] 2.16.840.1.952642.3.579.2. 593 1947 Unknown [id number] 2.16.840.1.596251.3.579.2. 593 1947 Unknown [id number] 2.16.840.1.114046.3.579.2. 593 1947 Unknown [id number] 2.16.840.1.543142.3.579.2. 593 1947 Unknown [id number] 2.16.840.1.713688.3.579.2. 593 1947 Unknown [id number] 2.16840.1.527914.3.579.2. 593 1947 Unknown [id number] 2.16840.1.240488.3.579.2. 593 1947 Unknown [id number] 2.16840.1.036743.3.579.2. 593 1947 Unknown [id number] 2.16.840.1.024614.3.579.2. 593 1947 Unknown [id number] 2.16840.1.001241.3.579.2. 593 1947 Unknown [id number] 2.16.840.1.814978.3.579.2. 173 1947 Unknown [id number] 2.16.840.1.433214.3.579.2. 1286 1947 Unknown [id number] 2.16.840.1.601296.3.579.2. 1286 1947 Unknown [id number] 2.16.840.1.148902.3.579.2. 1286 8 Unknown [id number] 2.16.840.1.721878.3.579.2. 1285 1947 Unknown [id number] 2.16.840.1.651875.3.579.2. 1285 1947 Unknown [id number] 2.16.840.1.466571.3.579.2. 1285 1947 Unknown [id number] 2.16.840.1.323475.3.579.2. 1285 1947 Unknown [id number] 2.16.840.1.073250.3.579.2. 1285 1947 Unknown [id number] 2.16.840.1.986364.3.579.2. 1285 1947 Unknown [id number] 2.16840.1.164704.3.579.2. 1285 1947 Unknown [id number] 2.16840.1.176435.3.579.2. 1285 1947 Unknown [id number] 2.16840.1.912029.3.579.2. 1285 1947 Unknown [id number] 2.16840.1.677480.3.579.2. 1285 1947 Unknown [id number] 2.840.1.683403.3.579.2. 1258 1947 Unknown [id number] 2.16.840.1.603904.3.579.2. 1258 1947 Unknown [id number] 2.16.840.1.585914.3.579.2. 1258 1947 Unknown [id number] 2.16.840.1.248006.3.579.2. 1258 1947 Unknown [id number] 2.16840.1.240664.3.579.2. 1258 1947 Unknown [id number] 2.16840.1.374636.3.579.2. 1259 1947 Unknown [id number] 2.16.840.1.619857.3.579.2. 1259 Social History Date Type Detail Facility Start: 03-12-2023 End: 11-11-2024 Tobacco smoking status COIS Ex-smoker [facility] Start: 07-30-1965 End: 07-22-1992 History of tobacco use Current smoker [facility] Start: 07-30-1965 End: 07-22-1992 History of tobacco use Cigarette Smoker [facility] Start: 03-12-2023 End: 11-11-2024 Tobacco use and exposure Smokeless tobacco non-user [facility] Start: 08-30-2023 End: 09-04-2023 Alcohol intake Not Asked [facility] Start: 03-12-2023 End: 03-05-2024 History of Social function [facility] Work Phone: Start: 03-12-2023 End: 03-05-2024 Tobacco use panel [facility] Work Phone: Start: 03-14-2023 Alcohol Comment caffeine intak e: more than 4 cups per day. [facility] Start: 1945 Sex Assigned At Not on file N [facility] [place] Start: 03-31-2024 End: 03-16-2025 Alcoholic beverage [...] got money to buy more. Never true [facility] In the past 12 month s, was there a time when you were not able to pay the mortgage or rent on time? No [facility] Functional Status Date Assessment Result Facility 02-23-2025 Patient Health Quest ionnaire 2 item (PHQ-2) [Reported] [facility] 11-11-2024 Patient Health Quest ionnaire 2 item (PHQ-2) [Reported] [facility] Clinical Notes 02-26-2022 to 03-16-2025 Katlin Romero MD - 03/16/2025 3:30 PM EDTClyndsey Romero MD - 03/02/2025 3:15 PM YUE [...] Visit: As needed documented in this encounter [facility] 03-02-2025 History of Present illness Narrative [...] days for s/r documented in this encounter [facility] 02-23-2025 History of Present illness Narrative [...] Do you have a medical power of document review attorney?: No Current Outpatient Medications on File [...] a living will and durable power of document review attorney for healthcare. We discussed telling yoder [...] 05/26/2025) for Medication Follow Up. Nicky POTTS, KRISTOFERC documented in this encounter [facility] 12-30-2024 History of Present illness Narrative [...] Visit: 03/02/2025, excision documented in this encounter [facility] 11-11-2024 History of Present illness Narrative [...] follow-ups on file. documented in this encounter [facility] 08-31-2024 Telephone encounter Note Acknowledged. [facility] 08-31-2024 Miscellaneous Notes Acknowledged. Patient was contacted by JOCE Castro for a sleep study and at this time she wants to cancel the study, for she doesn't feel it is necessary. documented in this encounter [facility] 08-31-2024 Telephone encounter Note Acknowledged. [facility] 08-31-2024 Miscellaneous Notes Acknowledged. 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 [phone], thank you. documented in this encounter [facility] 08-25-2024 Telephone encounter Note Patient was contacted by JOCE Castro for a sleep study and at this time she wants to cancel the study, for she doesn't feel it is necessary. 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 [phone], thank you. [facility] 07-30-2024 History of Present illness Narrative Images from the original note were not included. HPI Med Refill Additional comments: Ropinirole Last edited [...] 08/27/2024) for Recheck. documented in this encounter [facility] 05-08-2024 Telephone encounter Note Sent. [facility] 05-08-2024 Miscellaneous Notes Sent. documented in this encounter [facility] 05-04-2024 History of Present illness Narrative [...] for Routine F/U. documented in this encounter [facility] 04-06-2024 Telephone encounter Note Patient came [...] OTC 1 hour prior to each pill. [facility] 04-06-2024 Miscellaneous Notes Patient came in [...] to each pill. documented in this encounter [facility] 09-04-2023 History of Present illness Narrative Subjective Patient ID: Berenice Silva is a 77 y.o. female who presents for Follow-up ([facility] stay admitted 08/24/23 dx: TIA discharged home 08/25/23 advised to take ASA 325mg). Flowsheet Row Telephone from 08/30/2023 in [facility] with Kvng Linton MD Discharge Information ED or Hospital Discharge? Hospital Patient has been contacted within two business days of discharge No Have two attempts been made to contact the patient within two business days of being discharged? No Discharge Date 08/25/23 Discharge Hospital [facility] Discharged To: Home Setting Engagement Call [...] THE MORNING 90 tablet 0 [DISCONTINUED] HYDROcodone-acetaminophen (Andreas) 5-325 MG tablet Take 1 tablet by [...] for Test/Lab Review. documented in this encounter [facility] 10-22-2022 Note PROCEDURE: XR FOOT R [...] HALEIGH FINE Date: 2022-10-22 16:24 [facility] 10-09-2022 Note PROCEDURE: XR FOOT R [...] by: AYDEN SERRA Date: 2022-10-09 14:38 [facility] 09-18-2022 Note PROCEDURE: XR FOOT R [...] AYDEN SERRA Date: 2022-09-18 17:34 [facility] 05-10-2022 Note PROCEDURE: XR FOOT R T 2V COMPARISON: 02/23/2022 HISTORY: Pain FINDINGS: BONES:Stable medial effusion with plates and screws. Stable subtalar fusion. Changing configuration of the lateral sesamoid of the first metatarsal SOFT TISSUES:Negative. No visible soft tissue swelling. EFFUSION:None visible. OTHER: Negative. IMPRESSION: Intraprocedural fluoroscopic images Electronically authenticated by: AYDEN SERRA Date: 2022-05-10 17:33 [facility] 05-10-2022 Note PROCEDURE: XR FOOT R [...] by: AYDEN SERRA Date: 2022-05-10 17:32 [facility] 02-26-2022 Note PROCEDURE: XR FOOT R [...] by: AYDEN SERRA Date: 2022-02-26 07:57 [facility] Evaluation note Diagnosis TIA (transient ischemic [...] To Contact Urology Diagnoses Urinary frequency Procedures NM OFFICE/OUTPATIENT [facility] 60 MINUTES Kvng Linton MD [address] [address] Vee Hatfield MD [address] [place] [address] Referral ID Status Reason Start Date Expiration Date Visits Requested Visits Authorized [id number] Pending Review Specialty Services Required 09/04/2023 03/02/2024 1 1 * Consultation (Routine) - Pending Review Specialty Diagnoses / Procedures Referred By Contac t Referred To Contact Neurology Diagnoses TIA (transient ischemic attack) Procedures NM OFFICE/OUTPATIENT NEW HIGH MDM 60 MINUTES Kvng Linton MD 112 [facility] [address] [place] [address] Damion Longo MD [address] [place] [address] Referral ID Status Reason Start Date Expiration Date Visits Requested Visits Authorized [id number] Pending Review Specialty Services Required 09/04/2023 03/02/2024 1 1 * Imaging (Routine) - Pending Review Specialty Diagnoses / Procedures Referred By Contac t Referred To Contact Cardiology Diagnoses TIA (transient ischemic attack) Procedures Echocardiogram 2D complete Kvng Linton MD [address] [address] Referral ID Status Reason Start Date Expiration Date Visits Requested Visits Authorized [id number] Pending Review Perform Procedure 09/04/2023 03/02/2024 1 [...] and content) DATE CREATED AUTHOR 12/28/2022 [facility] DATE CREATED AUTHOR AUTHOR'S ORGANIZ ATION 09/07/2023 [facility] DATE CREATED AUTHOR AUTHOR'S ORGANIZ ATION 11/01/2023 [facility] DATE CREATED AUTHOR AUTHOR'S ORGANIZ ATION 01/22/2024 [facility] DATE CREATED AUTHOR AUTHOR'S ORGANIZ ATION 02/27/2024 [facility] DATE CREATED AUTHOR AUTHOR'S ORGANIZ ATION 03/15/2024 [facility] DATE CREATED AUTHOR AUTHOR'S ORGANIZ ATION 08/07/2024 [facility] DATE CREATED AUTHOR AUTHOR'S ORGANIZ ATION 03/18/2025 [facility] Care Teams (unrecognized sec tion and content) Food Prep Worker Relationship Specialty Start Date End Date Kvng Linton MD [address] [place] [address] PCP - General Internal Medicine 11/27/22 Kvng Linton MD [address] [place] [address] PCP - Rashid GALVEZ 07/22/23 Food Prep Worker Relationship Specialty Start Date End Date Kvng Linton MD [address] [place] [address] PCP - General Internal Medicine 11/27/22 Kvng Linton MD [address] [place] [address] PCP - Rashid GALVEZ 07/22/23 Food Prep Worker Relationship Specialty Start Date End Date Kvng Linton MD [address] [place] [address] PCP - General Internal Medicine 11/27/22 Kvng Linton MD [address] [place] [address] PCP - Rashid GALVEZ 07/22/23Saturday, MELISSA Boles [address] [place] [address] Licensed Practical Nurse Family Medicine 02/26/24 Food Prep Worker Relationship Specialty Start Date End Date Kvng Linton MD [address] [place] [address] PCP - General Internal Medicine 11/27/22 Kvng Linton MD [address] [place] [address] PCP - Rashid GALVEZ 07/22/23Saturday, Elvi, GUN REPAIR CLERK [address] [place] [address] Licensed Practical Nurse Family Medicine 02/26/24 Food Prep Worker Relationship Specialty Start Date End Date Kvng Linton MD [address] [place] [address] PCP - General Internal Medicine 11/27/22 Kvng Linton MD [address] [place] [address] PCP - Rashid GALVEZ 07/22/23Saturday, Elvi, GUN REPAIR CLERK [address] [place] [address] Licensed Practical Nurse Family Medicine 02/26/24 Food Prep Worker Relationship Specialty Start Date End Date Kvng Linton MD [address] [place] [address] PCP - General Internal Medicine 11/27/22 Kvng Linton MD [address] [place] [address] PCP Gay Mike MA 07/22/23Saturday, Elvi, GUN REPAIR CLERK [address] [place] [address] Licensed Practical Nurse Family Medicine 02/26/24 Food Prep Worker Relationship Specialty Start Date End Date Kvng Linton MD [address] [place] [address] PCP - General Internal Medicine 11/27/22SatRowdyElvi byrd LPN [address] [place] [address] Licensed Practical Nurse Family Medicine 02/26/24 08/28/24 Heydi Parker, RN Licensed Practical Nurse Family Medicine 08/28/24 Food Prep Worker Relationship Specialty Start Date End Date Kvng Linton MD [address] [place] [address] PCP - General Internal Medicine 11/27/22 Heydi Parker, RN Licensed Practical Nurse Family Medicine 08/28/24 Food Prep Worker Relationship Specialty Start Date End Date Kvng Linton MD [address] [place] [address] PCP - General Internal Medicine 11/27/22 Kvng Linton MD [address] [place] [address] PCP - Rashid AGLVEZ 07/22/23 Reina Palma LPN 10/06/24 Food Prep Worker Relationship Specialty Start Date End Date Kvng Linton MD [address] [place] [address] PCP - General Internal Medicine 11/27/22 Kvng Linton MD [address] [place] [address] PCP - Rashid GALVEZ 07/22/23 Reina Palma LPN 10/06/24 Food Prep Worker Relationship Specialty Start Date End Date Kvng Linton MD [address] [place] [address] PCP - General Internal Medicine 11/27/22 Kvng Linton MD [address] [place] [address] PCP - Rashid MA 07/22/23 Reina Palma LPN 10/06/24 Food Prep Worker Relationship Specialty Start Date End Date Kvng Linton MD [address] [place] [address] PCP - General Internal Medicine 11/27/22 Kvng Linton MD [address] [place] [address] PCP - Rashid GALVEZ 07/22/23 Reina Palma LPN 10/06/24 Food Prep Worker Relationship Specialty Start Date End Date Kvng Linton MD [address] [place] [address] PCP - General Internal Medicine 11/27/22 Kvng Linton MD [address] [place] [address] PCP - Rashid MA 07/22/23 Reina Palma LPN [address] [place] [address] 10/06/24 Food Prep Worker Relationship Specialty Start Date End Date Kvng Linton MD [address] [place] [address] PCP - General Internal Medicine 11/27/22 Kvng Linton MD [address] [place] [address] PCP - Rashid GALVEZ 07/22/23 Reina Palma LPN [address] [place] [address] 10/06/24 Food Prep Worker Relationship Specialty Start Date End Date Kvng Linton MD [address] [place] [address] PCP - General Internal Medicine 11/27/22 Kvng Linton MD [address] [place] [address] PCP - Rashid GALVEZ 07/22/23 Reina Palma LPN [address] [place] [address] 10/06/24 Food Prep Worker Relationship Specialty Start Date End Date Kvng Linton MD [address] [place] [address] PCP - General Internal Medicine 11/27/22 Kvng Linton MD [address] [place] [address] PCP - Rashid GALVEZ 07/22/23 Reina Palma LPN [address] [place] [address] 10/06/24 Food Prep Worker Relationship Specialty Start Date End Date Kvng Linton MD [address] [place] [address] PCP - General Internal Medicine 11/27/22 Kvng Linton MD [address] [facility] [address] [place] [address] PCP - Rashid GALVEZ 07/22/23 Reina Palma LPN [address] [facility] [address] [place] [address] 10/06/24 Food Prep Worker Relationship Specialty Start Date End Date Kvng Linton MD [address] [facility] [address] [place] [address] PCP - General Internal Medicine 11/27/22 Kvng Linton MD [address] [facility] [address] [place] [address] PCP - Rashid GALVEZ 07/22/23 Reina Palma LPN [address] [facility] [address] [place] [address] 10/06/24 Reason for Visit (unrecogniz ed section [...] BE BASED ON THE PRIMARY CLINICAL RECORDS. [facility] [employer] [facility]. provides no warranty or guarantee of the accuracy or completeness of information in this document.
== END 2025-03-24 10:00 | disposition home or self-care (01) ==
LOC: WC 09:59
PROVIDERS: PCP Internal Medicine; Visit Provider Physician Assistant
DX: L97.415 Non-pressure chronic ulcer of right heel and midfoot with muscle involvement without evidence of necrosis (principal)
CPT/HCPCS: 11043

== ENCOUNTER 2025-03-31 10:57 | Outpatient (OUT) | payer MEDICARE, SELFPAY ==
--- OUTSIDE RECORDS SUMMARY | 2024-10-29 06:00 | XMS_ITS ---
Author Organization [facility] Servic es Address [address] [place] [address] Care Team Providers Care Fountain Supervisor Name Role Phone Araceli Woo Primary Care Provider Johanna Wheat Unavailable [phone] REASON FOR VISIT FILLING Encounters Encounter Location Date Provider Diagnosis [place] [address] [place] [address] 10/29/2024 Johanna Haynes Plan Of Treatment Next Appt Details Provider Name:Lizeth Dimas, 10:40:00 AM, [address], [place], [address], Progress Notes * JESSICA SILVA EDOB: 8 (79 yo F)Acc No.[id number]:10/29/2024 Patient: JESSICA TOLENTINO Provider: Zohra HAYNES DDS :1945 A ge:78 Y S ex:Female Date:10/29/2024 Address:[address] [place] [address] [address], [place], [place] Pcp:Araceli Woo Subjective: * Chief Complaints: * 1 . FILLING. * Medical History: Objective: * Vitals: Assessment: Plan: * Treatment: * Images: * Electronic signature of Caroline Haynes DDS on 03/31/2025 at 11:00 AM EDT Sign off status: Pending * Provider: Zohra HAYNES DDS Date: 0 10/29/2024 Generated for Percy lou/Hilaria/Jono on: 0 03/31/2025 11:00 AM EDT
--- OUTSIDE RECORDS SUMMARY | 2024-11-27 09:00 | XMS_ITS ---
Author Organization [facility] Address [address] [place] [address] Care Team Providers Care Speed Operator Name Role Phone Araceli Woo Primary Care Provider REASON FOR VISIT FILLING Encounters Encounter Location Date Provider Diagnosis [place] [address] [place] [address] 11/27/2024 Araceli Woo Plan Of Treatment Next Appt Details Provider Name:Lizeth Dimas, 10:40:00 AM, [address], [place], [address], Progress Notes * JESSICA SILVA EDOB: 8 (79 yo F)Acc No.[id number]:11/27/2024 Patient: Nbaor JESSICA LUEVANO Provider: Mercedez Woo DDS :1945 A ge:79 Y S ex:Female Date:11/27/2024 Address:[address], [facility] Subjective: * Chief Complaints: * 1 . FILLING. * Medical History: Objective: * Vitals: Assessment: Plan: * Treatment: * Images: * Electronic signature of Consuelo Woo DDS on 03/31/2025 at 11:01 AM EDT Sign off status: Pending * Provider: Mercedez Woo DDS Date: 0 11/27/2024 Generated for Percy lou/Hilaria/Jono on: 0 03/31/2025 11:01 AM EDT
--- OUTSIDE RECORDS SUMMARY | 2024-12-01 10:00 | XMS_ITS ---
Author Organization [facility] Servic es Address [address] [place] [address] Care Team Providers Care Pain Management Nurse Name Role Phone Araceli Woo Primary Care Provider [phone] REASON FOR VISIT IMPRESSION -RAMANAOLEKAR Encounters Encounter Location Date Provider Diagnosis [place] [address] [facility] [place] [address] 12/01/2024 Araceli Woo Plan Of Treatment Next Appt Details Provider Name:Lizeth Dimas, 10:40:00 AM, [address], [place], [address], Progress Notes * JESSICA SILVA EDOB: 8 (79 yo F)Acc No.[id number]:12/01/2024 Dental Appointment Patient: JESSICA TOLENTINO Provider: Mercedez Woo DDS :1945 A ge:79 Y S ex:Female Date:12/01/2024 Address:[address] [place] [address] [address], [facility] Subjective: * Chief Complaints: * 1 . IMPRESSION -RAMANAOLEKAR. * Medical History: Objective: * Vitals: Assessment: Plan: * Treatment: * Images: * Electronic signature of Consuelo Woo DDS on 03/31/2025 at 11:00 AM EDT Sign off status: Pending * Provider: Mercedez Woo DDS Date: 0 12/01/2024 Generated for Percy lou/Hilaria/Jono on: 0 03/31/2025 11:00 AM EDT
--- OUTSIDE RECORDS SUMMARY | 2024-12-11 10:45 | XMS_ITS ---
Author Organization [facility] Serv[facility] es Address [address] [place] [address] Care Team Providers Care Screen Tender Name Role Phone Araceli Woo Primary Care Provider Johanna Wheat Unavailable REASON FOR VISIT FILLING Encounters Encounter Location Date Provider Diagnosis [place] [address] [place] [address] 12/11/2024 Johanna Haynes Plan Of Treatment Next Appt Details Provider Name:Lizeth Dimas, 10:40:00 AM, [address], [place], [address], Progress Notes * JESSICA SILVA EDOB: 8 (79 yo F)Acc No.[id number]:12/11/2024 Patient: JESSICA TOLENTINO Provider: Zohra HAYNES DDS :1945 A ge:79 Y S ex:Female Date:12/11/2024 Address:[address] [place] [address] [address], [place] Pcp:Araceli Woo Subjective: * Chief Complaints: * 1 . FILLING. * Medical History: Objective: * Vitals: Assessment: Plan: * Treatment: * Images: * Electronic signature of Caroline Haynes DDS on 03/31/2025 at 11:00 AM EDT Sign off status: Pending * Provider: Zohra HAYNES DDS Date: 0 12/11/2024 Generated for Percy lou/Hilaria/Jono on: 0 03/31/2025 11:00 AM EDT
--- OUTSIDE RECORDS SUMMARY | 2024-12-24 10:30 | XMS_ITS ---
Author Organization [facility] Servic es Address [address] [place] [address] Care Team Providers Care Blend Plant Operator Name Role Phone Araceli Woo Primary Care Provider REASON FOR VISIT IMPRESSIONS- DR. Hodge Encounters Encounter Location Date Provider Diagnosis [place] [address] [place] [address] 12/24/2024 Araceli Woo Plan Of Treatment Next Appt Details Provider Name:Lizeth Dimas, 10:40:00 AM, [address], [place], [address], Progress Notes * JESSICA SILVA EDOB: 8 (79 yo F)Acc No.[id number]:12/24/2024 Dental Appointment Patient: JESSICA TOLENTINO Provider: Mercedez Woo DDS :1945 A ge:79 Y S ex:Female Date:12/24/2024 Address:[address] [place] [address] [address] , [place], [place] Subjective: * Chief Complaints: * 1 . IMPRESSIONS- DR. Strong * Medical History: Objective: * Vitals: Assessment: Plan: * Treatment: * Images: * Electronic signature of Consuelo Woo DDS on 03/31/2025 at 11:00 AM EDT Sign off status: Pending * Provider: Mercedez Woo DDS Date: 0 12/24/2024 Generated for Percy lou/Eddie on: 0 03/31/2025 11:00 AM EDT
--- OUTSIDE RECORDS SUMMARY | 2025-03-31 11:00 | XMS_ITS | Encounter Summary ---
Author Organization [facility] Address [address] [place] [address] Care Team Providers Care Sr Community Manager Name Role Phone Kvng Linton MD Primary Care Provider Kvng Linton MD Unavailable [phone] Saturday, Elvi RESTAURANT CULINARY MANAGER Unavailable [phone] Heydi Parker RN Unavailable [phone] PalmaTezReina RESTAURANT CULINARY MANAGER Unavailable Encounter Details Date Type Department Care Team (Late st Contact Info) Description 08/26/2023 Abstract [facility] [place] [facility] 112 [facility] 110 [place] [address] Kvng Linton MD 112 [facility] 110 [place] [address] Social History Tobacco Use Types [...] on file documented as of this encounter Visit Diagnoses Not on filedocumented in this encounter Care Teams Sr Community Manager Relationship Specialty Start Date End Date Kvng Linton MD [address] [place] [address] PCP - General Internal Medicine 11/27/22 Kvng Linton MD [address] [place] [address] PCP - Rashid GALVEZ 07/22/23SaturdayElvi LPN [address] [place] [address] Licensed Practical Nurse Family Medicine 02/26/24 08/28/24 Heydi Parker, RN [address] [place] [address] Licensed Practical Nurse Family Medicine 08/28/24 10/06/24 Reina Palma LPN [address] [facility] [address] [place] [address] 10/06/24 documented as of this encounter
--- OUTSIDE RECORDS SUMMARY | 2025-03-31 11:00 | XMS_ITS | Encounter Summary ---
Author Organization [facility] Address [address] [place] [address] Care Team Providers Care Pop Singer Name Role Phone Kvng Linton MD Primary Care Provider Kvng Linton MD Unavailable [phone] Saturday, Elvi SUPERVISOR WATERPROOFING Unavailable [phone] Heydi [place] RN Unavailable [phone] Reina Palma SUPERVISOR WATERPROOFING Unavailable Encounter Details Date Type Department Care Team (Late st Contact Info) Description 12/19/2023 Abstract [facility] [place] [facility] [place] [address] [facility] 110 [place] [address] Kvng Linton MD 112 [facility] 110 [place] [address] Social History Tobacco Use [...] declined 10/30/2023 How often do you attend evangelical or zoroastrian serv ices? Patient declined 10/30/2023 Do you belong to any clubs o r organizations such as evangelical groups, unions, fraternal or athletic groups, or [...] and heating? Not hard at all 10/30/2023 [facility] Occupat ional Health - Occupational Stress [...] place to sleep or slept in a halfway (including now)? No 10/30/2023 Comments Unknown Sex and Gender Information Value Date Recorded Sex Assigned at Not on file Legal Sex Female 7:12 PM EDT Gender Identity Not on file Sexual Orientation Not on file documented as of this encounter Plan of Treatment Not on file documented as of this encounter Visit Diagnoses Not on filedocumented in this encounter Care Teams Pop Singer Relationship Specialty Start Date End Date Kvng Linton MD [address] [place] [address] PCP - General Internal Medicine 11/27/22 Kvng Linton MD [address] [place] [address] PCP - Rashid GALVEZ 07/22/23SaturdayElvi LPN [address] [place] [address] Licensed Practical Nurse Family Medicine 02/26/24 08/28/24 Heydi [place], FAUSTO [address] [place] [address] Licensed Practical Nurse Family Medicine 08/28/24 10/06/24 Reina Palma LPN [address] [place] [address] 10/06/24 documented as of this encounter
--- OUTSIDE RECORDS SUMMARY | 2025-03-31 11:00 | XMS_ITS | Clinical Summary ---
Author Organization [facility] tem Address [id number] [address] [place] [address] Care Team Providers Care Director Furniture Name Role Phone Kvng Linton MD Primary Care Provider [phone] Allergies Active Allergy Reactions Criticality Noted Date Comments Amoxicillin-Pot Clavulanate 04/03/20 Other reaction(s): nausea Sulfa (Sulfonamide Antibiotics) 02/07/2022 [...] history exists Medical Devices Implanted Type Area Wire Roller Device Identifier Shelf Expiration Date Model / Serial / Lot Orthopedic Implant Orthopedic Implant Right: Foot Insurance [employer] MEDICARE Care Teams Director Furniture Relationship Specialty Start Date End Date Kvng Linton MD 112 [facility] 110 [place] [address] PCP - General Internal Medicine 11/30/20
--- OUTSIDE RECORDS SUMMARY | 2025-03-31 11:00 | XMS_ITS | Encounter Summary ---
Author Organization [facility] Address [address] [place] [address] Care Team Providers Care Horticulture/Floriculture Teacher Name Role Phone Kvng Linton MD Primary Care Provider Kvng Linton MD Unavailable [phone] Saturday, Elvi WHOLESALE MANAGER Unavailable [phone] Heydi [place] RN Unavailable [phone] Reina Palma WHOLESALE MANAGER Unavailable Encounter Details Date Type Department Care Team (Late st Contact Info) Description 11/28/2023 Abstract [facility] [place] [facility] [address] [facility] 110 [place] [address] Kvng Linton MD 112 [facility] 110 [place] [address] Social History Tobacco Use Types [...] declined 10/30/2023 How often do you attend muslim or mandaen serv ices? Patient declined 10/30/2023 Do you belong to any clubs o r organizations such as muslim groups, unions, fraternal or athletic groups, or [...] and heating? Not hard at all 10/30/2023 [facility] of Occupat ional Health - Occupational Stress [...] place to sleep or slept in a mcc (including now)? No 10/30/2023 Comments Unknown Sex and Gender Information Value Date Recorded Sex Assigned at Not on file Legal Sex Female 7:12 PM EDT Gender Identity Not on file Sexual Orientation Not on file documented as of this encounter Plan of Treatment Not on file documented as of this encounter Visit Diagnoses Not on filedocumented in this encounter Care Teams Horticulture/Floriculture Teacher Relationship Specialty Start Date End Date Kvng Linton MD [address] [place] [address] PCP - General Internal Medicine 11/27/22 Kvng Linton MD [address] [place] [address] PCP - Rashid GALVEZ 07/22/23SaturdayElvi LPN [address] [place] [address] Licensed Practical Nurse Family Medicine 02/26/24 08/28/24 Heydi [place], FAUSTO [address] [place] [address] Licensed Practical Nurse Family Medicine 08/28/24 10/06/24 Reina Palma LPN [address] [place] [address] 10/06/24 documented as of this encounter
--- OUTSIDE RECORDS SUMMARY | 2025-03-31 11:00 | XMS_ITS | Encounter Summary ---
Author Organization [facility] Address [address] [place] [address] Care Team Providers Care Gas Operations Superintendent Name Role Phone Kvng Linton MD Primary Care Provider Kvng Linton MD Unavailable [phone] Saturday, Elvi TUNNEL MINER Unavailable [phone] Heydi [place] RN Unavailable Reina Palma TUNNEL MINER Unavailable Encounter Details Date Type Department Care Team (Late st Contact Info) Description 08/26/2023 [facility] [place] [facility] [address] [facility] 110 [place] [address] A, Unknown Practice [address] [place], [place] [address] Social History Tobacco Use Types Packs/Day Years [...] on filedocumented in this encounter Care Teams Gas Operations Superintendent Relationship Specialty Start Date End Date Kvng Linton MD [address] [place] [address] PCP - General Internal Medicine 11/27/22 Kvng Linton MD [address] [place] [address] PCP - Rashid GALVEZ 07/22/23SaturdayElvi LPN [address] [place] [address] Licensed Practical Nurse Family Medicine 02/26/24 08/28/24 Heydi [place], RN [address] [place] [address] Licensed Practical Nurse Family Medicine 08/28/24 10/06/24 Reina Palma LPN [address] [place] [address] 10/06/24 documented as of this encounter
--- OUTSIDE RECORDS SUMMARY | 2025-03-31 11:00 | XMS_ITS | Encounter Summary ---
Author Organization [facility] Address [address] [place] [address] Care Team Providers Care Draw Bench Operator Helper Name Role Phone Kvng Linton MD Primary Care Provider [phone] Kvng Linton MD Unavailable [phone] Saturday, Elvi PRESIDENT CONSUMER [employer]LECT[employer] Unavailable [phone] Heydi [place] RN Unavailable Reina Palma PRESIDENT [employer] Unavailable Encounter Details Date Type Department Care Team (Late st Contact Info) Description 04/11/2023 [facility] Only [facility] [place] [facility] [address] [place] [place] [address] Kvng Linton MD [address] [facility] 110 [place], [place] [address] Social History Tobacco Use Types Packs/Day Years [...] Anatomical Region Laterality Modality Radiographic Jaquelin ging Kvng Linton MD IMG XR PROCEDURES Final Result documented in this encounter Visit Diagnoses Not on filedocumented in this encounter Care Teams Draw Bench Operator Helper Relationship Specialty Start Date End Date Kvng Linton MD [address] [place] [address] PCP - General Internal Medicine 11/27/22 Kvng Linton MD [address] [place] [address] PCP - Rashid GALVEZ 07/22/23SaturdayElvi LPN [address] [place] [address] Licensed Practical Nurse Family Medicine 02/26/24 08/28/24 Heydi [place], FAUSTO [address] [place] [address] Licensed Practical Nurse Family Medicine 08/28/24 10/06/24 Reina Palma LPN [address] [facility] 110 [place] [address] 10/06/24 documented as of this encounter
--- OUTSIDE RECORDS SUMMARY | 2025-03-31 11:00 | XMS_ITS | Encounter Summary ---
Author Organization [facility] tem Address [id number] [address] [place] [address] Care Team Providers Care Top Lift Compresser Name Role Phone Kvng Linton MD Primary Care Provider [phone] Encounter Details Date Type Department Care Team (Late st Contact Info) Description 11/30/2020 Orders Only [facility] [address] [place] [id number] Kvng Linton MD 112 [facility] 110 [place] [address] Social History Tobacco Use Types [...] on filedocumented in this encounter Care Teams Top Lift Compresser Relationship Specialty Start Date End Date Kvng Linton MD 112 [facility] 110 [place] [address] PCP - General Internal Medicine 11/30/20 documented as of this encounter
--- OUTSIDE RECORDS SUMMARY | 2025-03-31 11:00 | XMS_ITS | Encounter Summary ---
Author Organization [facility] Address [address] [place] [address] Care Team Providers Care Chicken And Fish Butcher Name Role Phone Kvng Linton MD Primary Care Provider [phone] Kvng Linton MD Unavailable [phone] Saturday, Elvi BOATWRIGHT Unavailable [phone] Heydi [place] RN Unavailable Reina Palma BOATWRIGHT Unavailable Encounter Details Date Type Department Care Team (Late st Contact Info) Description 12/19/2023 Abstract [facility] [place] [facility] [address] [facility] 110 [place] [address] Kvng Linton MD 112 [facility] 110 [place] [address] Social History Tobacco Use Types [...] declined 10/30/2023 How often do you attend worship or jainism serv ices? Patient declined 10/30/2023 Do you belong to any clubs o r organizations such as worship groups, unions, fraternal or athletic groups, or [...] and heating? Not hard at all 10/30/2023 [facility] of Occupat ional Health [...] on filedocumented in this encounter Care Teams Chicken And Fish Butcher Relationship Specialty Start Date End Date Kvng Linton MD [address] [place] [address] PCP - General Internal Medicine 11/27/22 Kvng Linton MD [address] [place] [address] PCP - Rashid GALVEZ 07/22/23SaturdayElvi LPN [address] [place] [address] Licensed Practical Nurse Family Medicine 02/26/24 08/28/24 Heydi [place], FAUSTO [address] [place] [address] Licensed Practical Nurse Family Medicine 08/28/24 10/06/24 Reina Palma LPN [address] [place] [address] 10/06/24 documented as of this encounter
--- OUTSIDE RECORDS SUMMARY | 2025-03-31 11:00 | XMS_ITS | Encounter Summary ---
Author Organization [facility] Address [address] [place] [address] Care Team Providers Care Fermenter Wine Name Role Phone Kvng Linton MD Primary Care Provider [phone] Kvng Linton MD Unavailable [phone] Saturday, Elvi WORKDAY FINANCIALS CONSULTANT Unavailable [phone] Heydi [place] RN Unavailable Reina Palma WORKDAY FINANCIALS CONSULTANT Unavailable Encounter Details Date Type Department Care Team (Late st Contact Info) Description 03/14/[address] [place] [facility] [address] [facility] 110 [place] [address] Katie Rosas, LONGWALL HEADGATE OPERATOR [address] [facility] 110 [place], [place] [id number] Social History Tobacco Use Types Packs/Day Years [...] on filedocumented in this encounter Care Teams Fermenter Wine Relationship Specialty Start Date End Date Kvng Linton MD [address] [place] [address] PCP - General Internal Medicine 11/27/22 Kvng Linton MD [address] [place] [address] PCP - Rashid GALVEZ 07/22/23Saturday, MELISSA Boles [address] [place] [address] Licensed Practical Nurse Family Medicine 02/26/24 08/28/24 Heydi [place], RN [address] [place] [address] Licensed Practical Nurse Family Medicine 08/28/24 10/06/24 Reina Palma LPN [address] [facility] 110 [place] [address] 10/06/24 documented as of this encounter
--- OUTSIDE RECORDS SUMMARY | 2025-03-31 11:00 | XMS_ITS | Encounter Summary ---
Author Organization [facility] Address [address] [place] [address] Care Team Providers Care Intermodal Truck Driver Name Role Phone Kvng Linton MD Primary Care Provider Kvng Linton MD Unavailable Saturday, Elvi UNISHEAR OPERATOR Unavailable [phone] Heydi [place] RN Unavailable PalmaReina UNISHEAR OPERATOR Unavailable Encounter Details Date Type Department Care Team (Late st Contact Info) Description 04/10/2023 Clinisync Result Encounter [facility] External Department Unsolicited Kvng Linton MD [address] [facility] 110 [place] [id number] Social History Tobacco Use Types Packs/Day Years [...] EDT Narrative 04/10/2023 2:57 [place] [address] Mammography Report Signed Patient: BERENICE DISLA MR#: [id number] : 1945 Acct:[id number] Age/Sex: 77 / F ADM Date: 04/09/23 Loc: MAMMO Attending Dr: KVNG LINTON Ordering Physician: KVNG LINTON Results: Date of Service: 04/09/23 Follow Up: Procedure(s): MM tomosynthesis screening BI Accession Number(s): [id number] cc: KVNG LINTON Patient: BERENICE DISLA Exam Date: 04/09/2023 : 1945 Gender:F Ordering : DR KVNG LINTON M.D. Admission #: [id number] Family : Order #: [id number] CLICK HERE TO VIEW EXAM RADIOLOGY REPORT [...] ovarian cancer at age 52. LOCATION: [facility] BREAST COMPOSITION: Scattered areas fibroglandular [...] Signed By: 04/10/23 1458 DD/ 1457 TD/TT: Garment Manufacturer: Procedure Note Radiology, Radiologist, MD - 04/12/2023 [place] [address] Mammography Report Signed Patient: BERENICE DISLA EMR#: [id number] : 1945cct:[id number] Age/Sex: 77 / FADM Date: 04/09/23 Loc: MAMMO Attending Dr: KVNG LINTON Ordering Physician: KVNG LINTONResults: Date of Service: 04/09/23Follow Up: Procedure(s): MM tomosynthesis screening BI Accession Number(s): [id number] cc: KVNG LINTON Patient: BERENICE DISLA Exam Date: 04/09/2023 : 1945 Gender:F Ordering : DR VKNG LINTON M.D. Admission #: [id number] Family : Order #: [id number] CLICK HERE TO VIEW EXAM RADIOLOGY REPORT [...] ovarian cancer at age 52. LOCATION: [facility] BREAST COMPOSITION: Scattered areas fibroglandular [...] 14:56 Dictated By: Tariq Levin M.D. Signed By:04/10/238 DD/ 56 TD/TT: Garment Manufacturer: Kvng Linton MD [facility] Final Result documented in this encounter Visit Diagnoses Not on filedocumented in this encounter Care Teams Intermodal Truck Driver Relationship Specialty Start Date End Date Kvng Linton MD [address] [place] [address] PCP - General Internal Medicine 11/27/22 Kvng Linton MD [address] [place] [address] PCP - Rashid GALVEZ 07/22/23SaturdayElvi LPN [address] [place] [address] Licensed Practical Nurse Family Medicine 02/26/24 08/28/24 Heydi [place], RN [address] [place] [address] Licensed Practical Nurse Family Medicine 08/28/24 10/06/24 Reina Palma LPN [address] [place] [address] 10/06/24 documented as of this encounter
--- OUTSIDE RECORDS SUMMARY | 2025-03-31 11:00 | XMS_ITS | Encounter Summary ---
Author Organization [facility] Address [address] [place] [address] Care Team Providers Care Towel Rolling Machine Operator Name Role Phone Kvng Linton MD Primary Care Provider Kvng Linton MD Unavailable [phone] Saturday, Elvi RESPIRATORY CARE TECHNICIAN Unavailable [phone] Heydi [place] RN Unavailable PalmaTezReina RESPIRATORY CARE TECHNICIAN Unavailable Encounter Details Date Type Department Care Team (Late st Contact Info) Description 08/26/2023 Abstract [facility] [place] [facility] [address] [facility] 110 [place] [address] Kvng L[place] MD 112 [facility] 110 [place] [address] Social History Tobacco Use Types [...] on filedocumented in this encounter Care Teams Towel Rolling Machine Operator Relationship Specialty Start Date End Date Kvng Linton MD [address] [place] [address] PCP - General Internal Medicine 11/27/22 Kvng Linton MD [address] [place] [address] PCP - Rashid GALVEZ 07/22/23SaturdayElvi LPN [address] [place] [address] Licensed Practical Nurse Family Medicine 02/26/24 08/28/24 Heydi [place], RN [address] [place] [address] Licensed Practical Nurse Family Medicine 08/28/24 10/06/24 Reina Palma LPN [address] [facility] 110 [place] [address] 10/06/24 documented as of this encounter
--- OUTSIDE RECORDS SUMMARY | 2025-03-31 11:00 | XMS_ITS | Encounter Summary ---
Author Organization [facility] Address [address] [place] [address] Care Team Providers Care Epic Interface Analyst Name Role Phone Kvng Linton MD Primary Care Provider Kvng Linton MD Unavailable [phone] Saturday, Elvi TELEPHONE INSTALLER Unavailable [phone] Heydi [place] RN Unavailable Reina Palma TELEPHONE INSTALLER Unavailable Encounter Details Date Type Department Care Team (Late st Contact Info) Description 02/12/2024 Abstract [facility] [place] [facility] [address] [facility] 110 [place] [address] Kvng Linton MD 112 [facility] 110 [place] [address] Social History Tobacco Use Types [...] How often do you attend uatsdin or druze serv ices? Patient declined 10/30/2023 Do you [...] Recorded Patient Health Questionnaire-2 Score 0 02/06/2024 [facility] of Occupat ional [facility] - Occupational Stress Questionnaire Answer Date Recorded [...] documented as of this encounter Care Teams Epic Interface Analyst Relationship Specialty Start Date End Date Kvng Linton MD [address] [place] [address] PCP - General Internal Medicine 11/27/22 Kvng Linton MD [address] [place] [address] PCP - Rashid GALVEZ 07/22/23SaturdayElvi LPN [address] [place] [address] Licensed Practical Nurse Family Medicine 02/26/24 08/28/24 Heyid [place] RN [address] [place] [address] Licensed Practical Nurse Family Medicine 08/28/24 10/06/24 Reina Palma LPN [address] [place] [address] 10/06/24 documented as of this encounter
--- OUTSIDE RECORDS SUMMARY | 2025-03-31 11:01 | XMS_ITS | Encounter Summary ---
Author Organization [facility] Address [address] [place] [address] Care Team Providers Care Dust Collector Name Role Phone Kvng Linton MD Primary Care Provider Kvng Linton MD Unavailable [phone] Saturday, Elvi FINISHER MACHINE Unavailable [phone] Heydi [place] RN Unavailable Reina Palma FINISHER MACHINE Unavailable Encounter Details Date Type Department Care Team (Late st Contact Info) Description 07/30/2024 Abstract [facility] [place] [facility] [address] [facility] 110 [place] [address] Kvng Linton MD 112 [facility] 110 [place] [address] Social History Tobacco Use Types [...] and Family Not on file 03/05/2024 Attends Nondenominational Services Not on file 03/05 Active Member [...] Recorded Patient Health Questionnaire-2 Score 0 02/06/2024 [facility] of Occupat ional [facility] - Occupational Stress Questionnaire Answer Date Recorded [...] any time in the past [address] [facility], were you homeless or living in [...] documented as of this encounter Care Teams Dust Collector Relationship Specialty Start Date End Date Kvng Linton MD [address] [place] [address] PCP - General Internal Medicine 11/27/22 Kvng Linton MD [address] [place] [address] PCP - Rashid GALVEZ 07/22/23Saturday, MELISSA Boles [address] [place] [address] Licensed Practical Nurse Family Medicine 02/26/24 08/28/24 Heydi [place], RN [address] [place] [address] Licensed Practical Nurse Family Medicine 08/28/24 10/06/24 Reina Palma LPN 112 [facility] 110 [place] [address] 10/06/24 documented as of this encounter
--- OUTSIDE RECORDS SUMMARY | 2025-03-31 11:01 | XMS_ITS | Encounter Summary ---
Author Organization [facility] Address [address] [place] [address] Care Team Providers Care Watch And Clock Maker And Repairer Name Role Phone Kvng Linton MD Primary Care Provider Kvng Linton MD Unavailable [phone] Saturday, Elvi DIAMOND BROKER Unavailable [phone] Heydi [place] RN Unavailable Reina Palma DIAMOND BROKER Unavailable Encounter Details Date Type Department Care Team (Late st Contact Info) Description 02/17/2024 Abstract [facility] [place] [facility] [address] [facility] 110 [place] [address] Kvng Linton MD 112 [facility] 110 [place] [address] Social History Tobacco Use Types [...] How often do you attend taoism or religion serv ices? Patient declined 10/30/2023 Do you [...] Recorded Patient Health Questionnaire-2 Score 0 02/06/2024 [facility] of Occupat ional [facility] - Occupational Stress Questionnaire Answer [...] place to sleep or slept in a fpc (including now)? No 10/30/2023 Comments Unknown Sex [...] documented as of this encounter Care Teams Watch And Clock Maker And Repairer Relationship Specialty Start Date End Date Kvng Linton MD [address] [place] [address] PCP - General Internal Medicine 11/27/22 Kvng Linton MD [address] [place] [address] PCP - Rashid GALVEZ 07/22/23SaturdayElvi LPN [address] [place] [address] Licensed Practical Nurse Family Medicine 02/26/24 08/28/24 Heydi [place] RN [address] [place] [address] Licensed Practical Nurse Family Medicine 08/28/24 10/06/24 Reina Palma LPN [address] [place] [address] 10/06/24 documented as of this encounter
--- OUTSIDE RECORDS SUMMARY | 2025-03-31 11:01 | XMS_ITS | Encounter Summary ---
Author Organization [facility] Address [address] [place] [address] Care Team Providers Care Float Nurse Name Role Phone Kvng Linton MD Primary Care Provider Kvng Linton MD Unavailable [phone] Saturday, Elvi INSURANCE SALES PROFESSIONAL Unavailable [phone] Heydi Parker RN Unavailable Reina Palma INSURANCE SALES PROFESSIONAL Unavailable Encounter Details Date Type Department Care Team (Late st Contact Info) Description 03/02/2024 Abstract [facility] [place] [facility] [address] [facility] 110 [place] [address] Kvng Linton MD 112 [facility] 110 [place] [address] Social History Tobacco Use Types [...] and Family Not on file 03/05/2024 Attends [employer] Services Not on file 03/05 Active Member [...] Recorded Patient Health Questionnaire-2 Score 0 02/06/2024 [facility] Occupat ional [facility] - Occupational Stress Questionnaire [...] in a long-term (including now)? No 10/30/2023 Housing Stability Vital [...] time in the past 12 m [facility], were you homeless or living in a long-term (including now)? No 03/05/2024 Comments Unknown Sex and Gender Information Value Date Recorded Sex Assigned at Not on file Legal Sex Female 7:12 PM EDT Gender Identity Not on file Sexual Orientation Not on file documented as of this encounter Functional Status * Audit-C Score Answer Date of Assessment Author 0 03/05/2024 8:53 AM EDT SaturdayMercedez LPN * Question Answer Date of Assessment [...] documented as of this encounter Care Teams Float Nurse Relationship Specialty Start Date End Date Kvng Linton MD [address] [facility] 110 [place] [address] PCP - General Internal Medicine 11/27/22 Kvng Linton MD [address] [facility] [address] [place] [address] PCP - Rashid GALVEZ 07/22/23SaturdayElvi LPN [address] [facility] [address] [place] [address] Licensed Practical Nurse Family Medicine 02/26/24 08/28/24 Heydi Parker, FAUSTO [address] [place] [address] Licensed Practical Nurse Family Medicine 08/28/24 10/06/24 Reina Palma LPN [address] [facility] 110 [place] [address] 10/06/24 documented as of this encounter
--- OUTSIDE RECORDS SUMMARY | 2025-03-31 11:01 | XMS_ITS | Patient Health Record ---
Author Organization [facility] Address [address] [place] [address] Care Team Providers Care Human Resource Statistician Name Role Phone Araceli Woo Primary Care Provider Johanna Wheat Unavailable Helga Echevarria Unavailable [phone] Reason For Referral No Information Medications Medication SIG (Take, Route, Fr equency, Duration) Notes Start Date End Date Status Ibuprofen 800 MG 1 tablet with food o r milk as needed Orally Three times a day 05/13/2024 Active Encounters Encounter Location Date Provider Diagnosis [facility] [address] [address] 11/23/2024 Araceli Woo [facility] [address] [facility] [place] [address] 05/13/2024 Johanna Palacios Cracked tooth K03.81 [facility] [address] [place] [address] 05/20/2024 Araceli Woo Cracked tooth K03.81 Assessments Encounter Date Diagnosis (ICD Code) Assessment Notes Treatment Notes Treatment Clinical Notes Section Notes 05/20/2024 Cracked tooth (ICD-10 - K03.81) 05/13/2024 Cracked tooth (ICD-10 - K03.81) Plan Of Treatment Next Appt Details Provider Name:Lizeth Judie, 10:40:00 AM, [address] [place], [address], Insurance Providers Payer Name Payer Address Payer Phone Subscriber Number Group Number Insured Name Patient Relationship to Insured Coverage Start Date Coverage End Date [employer] [address] [address] [place] [address] [id number] JESSICA SILVA Self - patient is the insured 4
--- OUTSIDE RECORDS SUMMARY | 2025-03-31 11:01 | XMS_ITS | Clinical Summary ---
Author Organization [facility] Address [address] [place] [address] Care Team Providers Care Custom Framing Specialist Name Role Phone Kvng Linton MD Primary Care Provider [phone] Kvng Linton MD Unavailable [phone] Reina Palma LPN Unavailable Allergies Active Allergy Reactions Criticality Noted Date Comments Amoxicillin-Pot Clavulanate Nausea Only 023 Sulfa Antibiotics 03/12/2023 Other Reaction(s): itching Medications Multiple Vitamin (Multi-Vitamin) tablet Take 1 tablet by mouth in the morning. Active atorvastatin (Lipitor) 10 MG tabletIndication s:Dyslipidemia Take 1 tablet (10 mg) by mouth in the morning. 100 tablet 3 4 Active Additional Information Patient not taking.Reported on 07/30/2024 cholecalciferol (Vitamin D-3) 50 MCG (1999 UT) tablet Take 1,000 Units by mouth in the morning. Active aspirin 81 MG EC tablet Take 81 mg by mouth Daily Active rOPINIRole (Requip) 0.5 MG tabletIndication s:Restless Leg Syndrome Take 2 tablets (1 mg) by mouth in the morning and 2 tablets (1 mg) before bedtime. 360 tablet 3 5 Active olmesartan-hydro CHLOROthiazide (BENIcar HCT) 20-12.5 MG tabletIndication s:Essential (primary) hypertension Take 1 tablet by mouth Daily 5 Active meloxicam (Mobic) 15 MG tabletIndication s:Inflammatory and toxic neuropathy (HCC),Neurogenic pain Take 1 tablet (15 mg) by mouth Daily Take with food 90 tablet 3 5 Active cloNIDine (Catapres) 0.1 MG tabletIndication s:Essential (primary) hypertension TAKE 1 TABLET BY MOUTH EVERY 8 HOURS IF NEEDED FOR HIGH BLOOD PRESSURE FOR 170 OR GREATER 30 tablet 5 Active Additional Information Patient not taking.Reported on 02/23/2025 gabapentin (Neurontin) 600 MG tabletIndication s:Neuralgia TABLET 1/2 TABLET BY MOUTH TWICE A DAY AND TAKE 1 TABLET BY MOUTH EVERY DAY AT BEDTIME 180 tablet 3 5 Active mupirocin (Bactroban) 2 % ointmentIndicati ons:Epidermal inclusion cyst Apply to affected area (abdomen) with dressing changes, 30 day supply 22 g 5 Active traMADol (Ultram) 50 MG tabletIndication s:Primary osteoarthritis, unspecified site Take 1 tablet (50 mg) by mouth every 6 (six) hours if needed for severe pain for up to 10 days 40 tablet 5 025 Active Problems Problem Noted Date Diagnosed Date Atrophy of nail 02/23/2025 Edema 02/23/2025 Hyperlipoproteinemia 02/23/2025 Transient ischemic attack 02/23/2025 Vitamin D deficiency 07/30/2024 History of sepsis 07/30/2024 Racing heart beat 10/22/2023 Chronic idiopathic constipation 10/22/2023 Abnormal blood chemistry 03/12/2023 Anxiety 03/12/2023 Cervical paraspinal muscle spasm 03/12/2023 Charcot's joint, right ankle and foot 03/12/2023 Decreased estrogen level 03/12/2023 Equinus contracture of right ankle 03/12/2023 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 Impingement syndrome of right shoulder 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 Laryngopharyngeal reflux [...] 03/12 Pharyngoesophageal dysphagia 03/12/2023 Glenohumeral arthritis 03/12/2023 Primary localized osteoarthrosis of ankle and fo ot 03/12/2023 Primary osteoarthritis of right foot 03/12/2023 Primary osteoarthritis, right shoulder Rheumatoid factor positive 03/12/2023 Restless legs syndrome (RLS) 03/12/2023 Essential (primary) hypertension 03/09/2023 Lumbar neuritis 09/06/2021 Disorder of sacrum 11/30/2020 Lumbar spondylosis 11/30/2020 Dyslipidemia 08/22/2009 Resolved Problems Problem Noted Date Diagnosed Date Resolved Date Other acute osteomyelitis, r ight ankle and foot 02/23/2025 02/23/2025 Actinic cheilitis 03/12/2023 02/06/2024 Charcot's arthropathy 03/12/20232023 Non-pressure chronic ulcer o f other part of right foot with fat layer exposed 03/12/20232023 Post-traumatic osteoarthritis, right shoulder 03/12/20 23 02/23/2025 Piriformis syndrome of right side 10/31/2021 02/23/2025 Primary localized osteoarthrosis 08/22/2009 02/06/2024 Encounters Date Type Department Care Team Description 03/16/2025 3:30 PM EDT Office Visit [facility] [address] [place] [address] Katlin Triplett MD Encounter for removal of sutures 03/16/2025 Bamboo flowsheet [facility] [address] [place] [address] Katlin Triplett MD 03/16/2025 Travel 03/08/2025 Patient Outreach [facility] [address] [place] [address] Reina Palma LPN 03/05/2025 Results Follow-Up [facility] [address] [place] [address] Katlin Triplett MD Dermatopathology exam 03/04/2025 Patient Outreach [facility] [address] [place] [address] Reina Palma LPN 03/02/2025 3:15 PM EDT Office Visit [facility] [address] [place] [address] Katlin Triplett MD Epidermal inclusion cyst (Primary Dx); Pain 03/02/2025 Bamboo flowsheet [facility] [address] [place] [address] Katlin Triplett MD 03/02/2025 Travel 02/25/2025 Abstract [facility] [place] [facility] [address] [place] [address] Kvng Linton MD 02/23/2025 10:00 AM EDT Office Visit [facility] [address] [place] [address] Nicky Riddle PA Medicare annual wellness visit, subsequent (Primary Dx); ACP (advance care [...] pain with left-sided sciatica; Left sided sciatica 02/23/2025 Bamboo flowsheet [facility] [address] [place] [address] Nicky Riddle PA 02/23/2025 Travel 02/01/2025 Patient Outreach [facility] [employer] [address] [address] Reina Palma LPN 01/27/2025 Clinisync Result Encounter [facility] External Department Unsolicited Provider, Generic External Data 01/09/2025 [facility] [address] [place] [address] Tsering Conte NP On-Call 12/30/2024 12:50 PM EDT Office Visit [facility] [address] [place] [address] Gabriela [facility] PA Epidermal inclusion cyst (Primary Dx); Localized tenderness 12/30/2024 Bamboo flowsheet [facility] [address] [place] [address] Gabriela [facility] PA 12/30/2024 Travel from Last 3 Months Immunizations Immunization Administration [...] and Family Not on file 03/05/2024 Attends Jewish Services Not on file 03/05 Active Member [...] Date Recorded Patient Health Questionnaire-2 Score 0 02/23/2025 [facility] of Occupat ional Health - Occupational Stress [...] in a penitentiary (including now)? No 10/30/2023 Housing Stability Vital Sign Answer Kody e Recorded In the last 12 months, was t here a time when you were not able to pay the mortgage or rent on time? No 03/05/2024 In the past 12 months, how m any times have you moved where you were living? 0 03/05/2024 At any time in the past 12 m [facility], were you homeless or living in a penitentiary (including now)? No 03/05/2024 Comments Unknown Sex and Gender Information Value Date Recorded Sex Assigned at Not on file Legal Sex Female 7:12 PM EDT Gender Identity Not on file Sexual Orientation Not on file Last Filed Vital Signs Vital Sign Reading Time Taken Comments Blood Pressure 136/82 02/23/2025 10:11 AM EDT Pulse 71 02/23/2025 10:11 AM EDT Temperature 37.2 C (98.9 F) 01/09/2024 1:23 PM EDT Respiratory Rate 16 02/23/2025 10:1 1 AM EDT Oxygen Saturation 96% 02/23/2025 10: 11 AM EDT Inhaled Oxygen Concentration - - Weight 66.1 kg (145 lb 12.8 oz) 025 10:11 AM EDT Height 180.3 cm (5' 11 ) 02/23/2025 10: 11 AM EDT Body Mass Index 20.33 02/23/2025 10:11 AM EDT Plan of Treatment Health Maintenance Due Date Last Done Comments Influenza Vaccine (#1) 2025 , 05/03/2021, 04/12/2020, Additional history exists Medicare Annual Wellness (AWV) 02/23/2026 0 02/23/2025, 02/06/2024, 05/07/2022, Additional history exists Pneumococcal Vaccine: 65+ Years Completed 04/12/2020, 04/05/2020, 11/16/2013 FIT-DNA Discontinued 04/10/2022, 03/23, 02/24/2019, Additional history exists Mammogram Discontinued 04/10/2023, 03/22, 08/18/2021, Additional history exists CT Colonography Discontinued 01/17/2024, 01/17/2024 Colonoscopy Discontinued 03/13/2024, 02/20, 12/19/2023, Additional history exists Colorectal Cancer Screening Discontinued FIT Discontinued FOBT Discontinued Sigmoidoscopy Discontinued Procedures Procedure Name Priority Date/Time Associated Diagnosis Comments SKIN REPAIR Routine 03/02/2025 3:54 PM EDT Epidermal inclusion cyst SKIN EXCISION Routine 03/02/2025 3:54 PM EDT Epidermal inclusion cyst DERMATOPATHOLOGY EXAM Routine 03/02/2025 12:00 AM EDT Epidermal inclusion cyst XR FOOT RT MIN 3V 01/27/2025 3:4 1 PM EDT MM TOMOSYNTHESIS SCREENING BI 04/10/2023 2:57 PM EDT LAB COLOGUARD COLON CANCER SCREEN Routine 04/10/2022 from Last 3 Months or Most Recently Relevant to Health Maintenance Results * Skin repair (03/02/2025 3:54 PM EDT) Narrative Nita Sanders MA - 03/02/2025 3:54 PM EDT Complexity: Intermediate Final length (cm): 2.3 Reason [...] uncontrollable bleeding, or complications. Dressing type: bandage Katlin Triplett MD DERM PROCEDURE ORDERABLES Fin al Result * Skin excision (03/02/2025 3:54 PM EDT) Narrative Nita Sanders MA - 03/02/2025 3:54 PM EDT Lesion length (cm): 2.3 Lesion width (cm): [...] 6.0 ml Estimated blood loss: <1.0 ml Katlin Triplett MD DERM PROCEDURE ORDERABLES Fin al Result * Dermatopathology exam (03/02/2025 12:00 AM EDT) SPECIMEN TYPE ------ SPECIMEN: LEFT ABDOMEN (SIDE) - UPPER ------ [facility] ICD10 Code L72.9 [facility] PROTOCOL EXC - EXCISION AUROR A DIAGNOSTICS Final Diagnosis EPIDERMAL INCLUSION CYST, INFLAMED, EXCISED. [facility] Gross Text 2 rep sec subm [facility] Microscopic Description Microscopic examination performed. [facility] CPT 77309*1 [facility] Skin Topography unknown / Unknown 03/02/2025 3:54 PM EDT Comment:Differential Diagnos is: EIC Check Margins: No Size of lesion: 2.3 x 2.0 cm Diagnosis: (L72.0) Epidermal inclusion cyst Katlin Triplett MD LAB PATHOLOGY ORDERABLES Yessy l Result [facility] * XR FOOT RT MIN 3V (01/27/2025 3:41 PM EDT) Anatomical Region Laterality Modality Other 01/27/2025 3:41 PM EDT Narrative 01/27/2025 3:43 PM EDT [address] [address] XRay Report Signed Patient: BERENICE SILVA MR#: [id number] : 1945 Acct:[id number] Age/Sex: 79 / F ADM Date: 01/27/25 Loc: RAD Attending Dr: Anup Perez D.P.M. Ordering Physician: Anup Perez D.P.M. Date of Service: 01/27/25 Procedure(s): XR foot RT min 3V Accession Number(s): [id number] cc: KVNG LINTON ; Anup Perez D.P.M. [place] [address] Patient Name: BERENICE SILVA MRN: [id number] date: 1945 Sex: F Assigned Patient Location: [facility] Current Patient Location: Accession/Order Number: [id number] Exam Date: 01/27/2025 15:38 Report Date: 01/27/2025 [...] Fish M.D. 01/27/2025 3:41 PM Dictation Location: VideoNot.es Electronically authenticated by: [id number] Y Date: 01/27/2025 15:41 Dictated By: Lew Fish D.O. Signed By: 01/27/25 1543 DD/ 1541 TD/TT: Electrical Engineering Professor: Procedure Note Radiology, Radiologist, - 01/27/2025 [place] [address] XRay Report Signed Patient: BERENICE SILVA EMR#: [id number] : 1945cct:[id number] Age/Sex: 79 / FADM Date: 01/27/25 Loc: RAD Attending Dr: Anup Perez D.P.M. Ordering Physician: Anup Perez D.P.M. Date of Service: 01/27/25 Procedure(s): XR foot RT min 3V Accession Number(s): [id number] cc: KVNG LINTON ; Anup Perez D.P.M. [facility] [place] [address] Patient Name: BERENICE SILVA MRN: [id number] date: 1945 Sex: F Assigned Patient Location: [facility] Current Patient Location: Accession/Order Number: [id number] Exam Date: 01/27/2025 15:38 Report Date: 01/27/2025 15:41 At the request of: ANUP PEREZ DPNabor Procedure: XR foot RT min 3V 3 views right foot plain film COMPARISON:10/22/2022 HISTORY: Reassessment of hardware. Ulcer bottom of great toe. ACUTE FINDINGS: None DEGENERATIVE CHANGE: Similar articular erosive changes of the phalangesand first metatarsal phalangeal joint. SOFT TISSUE FINDINGS: No subcutaneous air. No radiodense foreign body. JOINT EFFUSION: None POSTOP CHANGES: Stable fusion hardware. Second toe amputation stable. BONE MINERALIZATION: Adequate XR/XR foot RT min 3V IMPRESSION: Stable findings. No hardware failure. Similar erosivechanges. No subcutaneous air. Impression dictated by: Lew Fish M.D. 01/27/2025 3:41 PM Dictation Location: [place] [address] Electronically authenticated by: [id number] Y Date: 5:41 Dictated By: Lew Fish D.O. Signed By:01/27/25 154 DD/ 154 TD/TT: Electrical Engineering Professor: Generic External Data Provider [facility] Final Result * MM TOMOSYNTHESIS SCREENING BI (04/10/2023 2:57 PM EDT) Anatomical Region Laterality Modality Other 04/10/2023 2:57 PM EDT Narrative 04/10/2023 2:57 [place] [address] Mammography Report Signed Patient: BERENICE SILVA MR#: [id number] : 1945 Acct:[id number] Age/Sex: 77 / F ADM Date: 04/09/23 Loc: MAMMO Attending Dr: KVNG LINTON Ordering Physician: KVNG LINTON Results: Date of Service: 04/09/23 Follow Up: Procedure(s): MM tomosynthesis screening BI Accession Number(s): [id number] cc: KVNG LINTON Patient: BERENICE SILVA Exam Date: 04/09/2023 : 1945 Gender:F Ordering : DR KVNG LINTON M.D. Admission #: [id number] Family : Order #: [id number] CLICK HERE TO VIEW EXAM RADIOLOGY REPORT [...] ovarian cancer at age 52. LOCATION: [facility] BREAST COMPOSITION: Scattered areas fibroglandular density. [...] Signed By: 04/10/23 1458 DD/ 1457 TD/TT: Electrical Engineering Professor: Procedure Note Radiology, Radiologist, MD - 04/12/2023 [place] [address] Mammography Report Signed Patient: BERENICE SILVA EMR#: [id number] : 1945cct:[id number] Age/Sex: 77 / FADM Date: 04/09/23 Loc: MAMMO Attending Dr: KVNG LINTON Ordering Physician: Marge LINTONults: Date of Service: 04/09/23Follow Up: Procedure(s): MM tomosynthesis screening BI Accession Number(s): [id number] cc: KVNG LINTON Patient: BERENICE SILVA Exam Date: 04/09/2023 : 1945 Gender:F Ordering : DR KVNG LINTON M.D. Admission #: [id number] Family : Order #: [id number] CLICK HERE TO VIEW EXAM RADIOLOGY REPORT [...] ovarian cancer at age 52. LOCATION: [facility] BREAST COMPOSITION: Scattered areas fibroglandular density. [...] M.D. Signed By:04/10/23 1458 DD/ 1457 TD/TT: Electrical Engineering Professor: Kvng Linton MD [facility] Final Result * Cologuard?? colon cancer screening (04/10/2022) COLOGUARD RESULT REPORTABLE [...] screened with both Cologuard and colonoscopy. (Luc Cook, N Engl J Med 2014;370(14):8819-1613) The normal value (reference range) for this assay is negative. COLOGUARD RE-SCREENING RECOMMENDATION: Periodic colorectal cancer screening is an important part of preventive healthcare for asymptomatic individuals at average risk for colorectal cancer. Following a negative Cologuard result, the [place] [employer] and U.S. Multi-Society Task Force screening guidelines recommend a Cologuard re-screening interval of 3 years. References: [place] [employer] Guideline for Colorectal Cancer Screening: https://www.cancer.org/cancer/ibuor-jknotf-ygprsz/ruhpqbbdk-plnwqwxnz-oapfful/ac s-rec ommendations.html.; Dave DK, Jacobo ABRAHAM, Nika LeijaK, Colorectal Cancer Screening: Recommendations for Physicians and Patients from the U.S. Multi-Society Task Force on Colorectal Cancer Screening , Am J Gastroenterology 2017; 112:5387-0150. TEST DESCRIPTION: Composite algorithmic analysis of stool [...] (Luc Reardon al, N Engl J Med 2014;370(14):0515-7387.) Cologuard may produce a false negative or false positive result (no colorectal cancer or precancerous polyp present at colonoscopy follow up). A negative Cologuard test result does not guarantee the absence of CRC or advanced adenoma (pre-cancer). The current Cologuard screening interval is every 3 years. ([place] [employer] and U.S. Multi-Society Task Force). Cologuard performance data in a 10,000 patient pivotal study using colonoscopy as the reference method can be accessed at the following location: www.[employer]/results. Additional description of the Cologuard test process, warnings and precautions can be found at www.cologuard.com. 04/10/2022 Kvng Linton MD LAB MOLECULAR DIAGNOSTICS [facility]ANDAR LOPEZ Final Result [facility] from Last 3 Months or Most Recently Relevant to Health Maintenance Insurance [employer] MEDICARE ADVANTAGE Care Teams Custom Framing Specialist Relationship Specialty Start Date End Date Kvng Linton MD [address] [place] [address] PCP - General Internal Medicine 11/27/22 Kvng Linton MD [address] [place] [address] PCP - Rashid GALVEZ 07/22/23 Reina Palma LPN [address] [place] [address] 10/06/24
--- OUTSIDE RECORDS SUMMARY | 2025-03-31 11:01 | XMS_ITS | Encounter Summary ---
Author Organization [facility] Address [address] [place] [address] Care Team Providers Care Club Manager Name Role Phone Kvng Linton MD Primary Care Provider Kvng Linton MD Unavailable [phone] Saturday, Elvi TOOL AND DIE MAKER/DESIGNER Unavailable [phone] Heydi Parker RN Unavailable Reina Palma TOOL AND DIE MAKER/DESIGNER Unavailable Encounter Details Date Type Department Care Team (Late st Contact Info) Description 02/26/2024 Clinisync Result Encounter [facility] External Department Unsolicited Nicky Riddle, PA [address] [facility] 110 [place] [address] Social History Tobacco Use Types Packs/Day Years [...] declined 10/30/2023 How often do you attend shinto or spiritism serv ices? Patient declined 10/30/2023 Do you belong to any clubs o r organizations such as shinto groups, unions, fraternal or athletic groups, or [...] Recorded Patient Health Questionnaire-2 Score 0 02/06/2024 [facility] - Occupational [...] Yes 10/30/2023 Housing Stability Vital Sign Answer Kdoy e Recorded In the last 12 months, [...] place to sleep or slept in a retirement (including now)? No 10/30/2023 Comments Unknown Sex [...] AM EDT Narrative 02/26/2024 11:39 AM EDT [place] [id number] XRay Report Signed Patient: BERENICE DISLA MR#: [id number] : 1945 Acct:[id number] Age/Sex: 78 / F ADM Date: 02/26/24 Loc: RAD Attending Dr: NICKY RIDDLE Ordering Physician: NICKY RIDDLE Date of Service: 02/26/24 Procedure(s): XR DEXA axial skeleton Accession Number(s): [id number] cc: KVNG LINTON ; NICKY RIDDLE [address] [address] Patient Name: BERENICE DISLA MRN: [id number] date: 1945 Sex: F Assigned Patient Location: RAD Current Patient Location: RAD Accession/Order Number: [id number] Exam Date: 02/26/2024 11:05 Report Date: 02/26/2024 [...] prevention and treatment of osteoporosis. Osteoporos Int. 2021;3310):8885-8263. doi: 10.1007/i14886-065-20321-h. Epub 2021Nov 16. Erratum in: Osteoporos Int. 2021Feb 15;: PMID: [id number]; PMCID: [id number]. Electronically authenticated by: TARIQ LEVIN Date: 02/26/2024 11:36 Dictated By: Tariq Levin M.D. Signed By: 02/26/24 1139 DD/ 1136 TD/TT: Dry Mixer: Procedure Note Radiology, Radiologist, MD - 02/26/2024 [place] [address] XRay Report Signed Patient: BERENICE DISLA EMR#: [id number] : 1945cct:[id number] Age/Sex: 78 / FADM Date: 02/26/24 Loc: RAD Attending Dr: NICKY RIDDLE Ordering Physician: NICKY RIDDLE Date of Service: 02/26/24 Procedure(s): XR DEXA axial skeleton Accession Number(s): [id number] cc: KVNG LINTON ; NICKY RIDDLE [place] [address] Patient Name: BERENICE DISLA MRN: [facility]:[id number] date: 1945 Sex: F Assigned Patient Location: [facility] Current Patient Location: [facility] Accession/Order Number: [id number] Exam Date: 02/26/2024 11:05 Report Date: 02/26/2024 [...] 10-year hip fracture risk >= 3% or a04-pksb major osteoporosis-related fracture risk >= 20% (i.e., [...] to prevention and treatment of osteoporosis.Osteoporos Int. 2021;33(10):8532-4313. doi: 10.1007/i12916-280-34275-n. Epub . Erratum in: Osteoporos Int. 2021Feb 15;: PMID: [id number]; PMCID: [id number]. Electronically authenticated by: TARIQ LEVIN Date: 02/26/2024 11:36 Dictated By: Tariq Levin M.D. Signed By:02/26/24 1139 DD/ 1136 TD/TT: Dry Mixer: us Nicky [facility] Final Result documented in this encounter Visit Diagnoses Not on filedocumented in this encounter Additional Health Concerns Assessment Noted Time PHQ-9 Depression Total Score: 1 02/06/20 24 10:00 AM EDT documented as of this encounter Care Teams Club Manager Relationship Specialty Start Date End Date Kvng Linton MD [address] [place] [address] PCP - General Internal Medicine 11/27/22 Kvng Linton MD [address] [place] [address] PCP - Rashid GALVEZ 07/22/23SaturdayElvi LPN [address] [place] [address] Licensed Practical Nurse Family Medicine 02/26/24 08/28/24 Heydi Parker, FAUSTO [address] [facility] [place] [address] Licensed Practical Nurse Family Medicine 08/28/24 10/06/24 Reina Palma LPN [address] [place] [address] 10/06/24 documented as of this encounter
--- OUTSIDE RECORDS SUMMARY | 2025-03-31 11:01 | XMS_ITS | Encounter Summary ---
Author Organization [facility] Address [address] [place] [address] Care Team Providers Care Contract Administration Coordinator Name Role Phone Kvng Linton MD Primary Care Provider [phone] Kvng Linton MD Unavailable [phone] Reina Palma LPN Unavailable Reason for Visit * Reason Onset Date Comments On-Call 01/09/2025 Encounter Details Date Type Department Care Team (Late st Contact Info) Description 01/09/2025 Telephone [facility] [place] [facility] 112 [facility] 110 [place] [address] Tsering Conte, FIELD TECH 112 [facility] 110 [place] [address] On-Call Social History Tobacco Use [...] and Family Not on file 03/05/2024 Attends Yarsanism Services Not on file 03/05 Active Member [...] Recorded Patient Health Questionnaire-2 Score 0 11/11/2024 [facility] - Occupational [...] any time in the past 12 m [facility], were you homeless or living in [...] documented in this encounter Plan of Treatment Not on file documented as of this encounter Visit Diagnoses Diagnosis Cellulitis of lower extremity, unspecified laterality- Primary documented in this encounter Additional Health Concerns Assessment Noted Time PHQ-9 Depression Total Score: 1 02/06/20 24 10:00 AM EDT documented as of this encounter Care Teams Contract Administration Coordinator Relationship Specialty Start Date End Date Kvng Linton MD [address] [facility] [address] [place] [address] PCP - General Internal Medicine 11/27/22 Kvng Linton MD [address] [facility] 110 [place] [address] PCP - Rashid GALVEZ 07/22/23 Reina Palma LPN [address] [facility] [address] [place] [address] 10/06/24 documented as of this encounter
--- OUTSIDE RECORDS SUMMARY | 2025-03-31 11:01 | XMS_ITS | Encounter Summary ---
Author Organization [facility] Address [address] [place] [address] Care Team Providers Care Lead Network Engineer Name Role Phone Kvng Linton MD Primary Care Provider Kvng Linton MD Unavailable [phone] Saturday, Elvi ICE CREAM FREEZER ASSISTANT Unavailable [phone] Heydi Parker RN Unavailable Reina Palma ICE CREAM FREEZER ASSISTANT Unavailable Encounter Details Date Type Department Care Team (Late st Contact Info) Description 03/16/2024 Abstract [facility] [place] [facility] [address] [facility] 110 [place] [address] Kvng Linton MD 112 [facility] 110 [place] [address] Social History Tobacco Use Types [...] and Family Not on file 03/05/2024 Attends Mandaeism Services Not on file 03/05 Active Member [...] Recorded Patient Health Questionnaire-2 Score 0 02/06/2024 [facility] - Occupational Stress Questionnaire Answer Date [...] any time in the past 12 m [facility], were you homeless or living in [...] documented as of this encounter Care Teams Lead Network Engineer Relationship Specialty Start Date End Date Kvng Linton MD [address] [place] [place] [address] PCP - General Internal Medicine 11/27/22 Kvng Linton MD [address] [facility] [address] [place] [address] PCP - Rashid GALVEZ 07/22/23Saturday, MELISSA Boles [address] [place] [address] Licensed Practical Nurse Family Medicine 02/26/24 08/28/24 Heydi Parker, RN [address] [place] [address] Licensed Practical Nurse Family Medicine 08/28/24 10/06/24 Reina Palma LPN 112 [facility] 110 [place] [address] 10/06/24 documented as of this encounter
--- OUTSIDE RECORDS SUMMARY | 2025-03-31 11:01 | XMS_ITS ---
Author Organization [facility] Address [address] [place] [address] Care Team Providers Care Senior Web Designer Name Role Phone Kvng Linton MD Primary Care Provider [phone] Kvng Linton MD Unavailable [phone] Reina Palma LPN Unavailable Chronic Care [...] Name Relationship Phone Reina Palma LPN(Responsible Staff) [phone] Continued Care and Services Coordination
--- OUTSIDE RECORDS SUMMARY | 2025-03-31 11:01 | XMS_ITS | Encounter Summary ---
Author Organization [facility] Address [address] [place] [address] Care Team Providers Care Dispensing And Measuring Optician Name Role Phone Kvng Linton MD Primary Care Provider [phone] Kvng Linton MD Unavailable [phone] Reina Palma LPN Unavailable Encounter Details Date Type Department Care Team (Latest Contact Info) Description 03/05/2025 Results Follow-Up [facility] [address] [facility] [address] [place] [address] Katlin Triplett MD [address] [facility] [address] [place] [address] Dermatopathology exam Social History Tobacco Use Types Packs/Day Years [...] and Family Not on file 03/05/2024 Attends Baptism Services Not on file 03/05 Active Member [...] Recorded Patient Health Questionnaire-2 Score 0 02/23/2025 [facility] Occupat ional Health - Occupational [...] place to sleep or slept in a half-way (including now)? No 10/30/2023 Housing Stability Vital Sign Answer Kody e Recorded In the last 12 months, was t here a time when you were not able to pay the mortgage or rent on time? No 03/05/2024 In the past 12 months, how m any times have you moved where you were living? 0 03/05/2024 At any time in the past 12 m [facility], were you homeless or living in a half-way (including now)? No 03/05/2024 Comments Unknown Sex [...] Assessment Noted Time PHQ-9 Depression Total Score: 0 02/24/20 25 9:00 AM EDT documented as of this encounter Care Teams Dispensing And Measuring Optician Relationship Specialty Start Date End Date Kvng Linton MD [address] [place] [address] PCP - General Internal Medicine 11/27/22 Kvng Linton MD [address] [place] [address] PCP - Rashid GALVEZ 07/22/23 Reina Palma LPN [address] [place] [address] 10/06/24 documented as of this encounter
--- OUTSIDE RECORDS SUMMARY | 2025-03-31 11:01 | XMS_ITS | Encounter Summary ---
Author Organization [facility] Address [address] [place] [address] Care Team Providers Care Economist Research Assistant Name Role Phone Kvng Linton MD Primary Care Provider Kvng Linton MD Unavailable [phone] Saturday, Elvi OWNER/PHOTOGRAPHER Unavailable [phone] Heydi Parker RN Unavailable Palma Reina OWNER/PHOTOGRAPHER Unavailable Encounter Details Date Type Department Care Team (Late st Contact Info) Description 02/26/2024 Orders Only [facility] [address] [place] [address] [place] [address] Unallocated, Noms Lauri, [address] [place], [place] [address] Social History Tobacco Use Types Packs/Day Years [...] declined 10/30/2023 How often do you attend spiritism or church serv ices? Patient declined 10/30/2023 Do you belong to any clubs o r organizations such as spiritism groups, unions, fraternal or athletic groups, or [...] Recorded Patient Health Questionnaire-2 Score 0 02/06/2024 [facility] Occupat ional Health - Occupational [...] place to sleep or slept in a [facility] (including now)? No 10/30/2023 Comments Unknown Sex [...] documented as of this encounter Care Teams Economist Research Assistant Relationship Specialty Start Date End Date Kvng Linton MD [address] [facility] 110 [place] [address] PCP - General Internal Medicine 11/27/22 Kvng Linton MD [address] [facility] 110 [place] [address] PCP - Rashid GALVEZ 07/22/23SaturdayElvi LPN [address] [facility] 110 [place] [address] Licensed Practical Nurse Family Medicine 02/26/24 08/28/24 Heydi Parker, FAUSTO [address] [place] [address] Licensed Practical Nurse Family Medicine 08/28/24 10/06/24 Reina Palma LPN 112 [facility] 110 [place] [address] 10/06/24 documented as of this encounter
--- OUTSIDE RECORDS SUMMARY | 2025-03-31 11:01 | XMS_ITS | Encounter Summary ---
Author Organization [facility] Address [address] [place] [address] Care Team Providers Care Director Learning Name Role Phone Kvng Linton MD Primary Care Provider Kvng Linton MD Unavailable [phone] Saturday, Elvi EDUCATIONAL PSYCHOLOGIST Unavailable [phone] Heydi Parker RN Unavailable Reina Palma EDUCATIONAL PSYCHOLOGIST Unavailable Encounter Details Date Type Department Care Team (Late st Contact Info) Description 08/26/2024 Abstract [facility] [place] [facility] [address] [facility] 110 [place] [address] Kvng Linton MD 112 [facility] 110 [place] [address] Social History Tobacco Use Types [...] and Family Not on file 03/05/2024 Attends Church Services Not on file 03/05 Active Member [...] Recorded Patient Health Questionnaire-2 Score 0 02/06/2024 [facility] - Occupational Stress Questionnaire Answer [...] place to sleep or slept in a jail (including now)? No 10/30/2023 Housing Stability Vital Sign Answer Kody e Recorded In the last 12 months, was t here a time when you were not able to pay the mortgage or rent on time? No 03/05/2024 In the past 12 months, how m any times have you moved where you were living? 0 03/05/2024 At any time in the past 12 m [facility], were you homeless or living in a jail (including now)? No 03/05/2024 Comments Unknown Sex [...] documented as of this encounter Care Teams Director Learning Relationship Specialty Start Date End Date Kvng Linton MD [address] [place] [address] PCP - General Internal Medicine 11/27/22 Kvng Linton MD [address] [place] [address] PCP - Rashid GALVEZ 07/22/23Saturday, MELISSA Boles [address] [place] [address] Licensed Practical Nurse Family Medicine 02/26/24 08/28/24 Heydi Parker, RN [address] [place] [address] Licensed Practical Nurse Family Medicine 08/28/24 10/06/24 Reina Palma LPN 112 [facility] 110 [place] [address] 10/06/24 documented as of this encounter
--- OUTSIDE RECORDS SUMMARY | 2025-03-31 11:01 | XMS_ITS | Encounter Summary ---
Author Organization [facility] Address [address] [place] [address] Care Team Providers Care Agricultural Sciences Professor Name Role Phone Kvng Linton MD Primary Care Provider [phone] Kvng Linton MD Unavailable [phone] Reina Palma LPN Unavailable Encounter Details Date Type Department Care Team (Late st Contact Info) Description 02/25/2025 [facility] [place] [facility] 110 [place] [address] Kvng Linton MD 112 [facility] 110 [place], [place] [address] Social History Tobacco Use Types Packs/Day Years [...] and Family Not on file 03/05/2024 Attends Sabianist Services Not on file 03/05 Active Member [...] Recorded Patient Health Questionnaire-2 Score 0 02/23/2025 [facility] - Occupational Stress Questionnaire Answer [...] in a intermediate (including now)? No 10/30/2023 Housing Stability Vital Sign Answer Kody e Recorded In the last 12 months, was t here a time when you were not able to pay the mortgage or rent on time? No 03/05/2024 In the past 12 months, how m any times have you moved where you were living? 0 03/05/2024 At any time in the past 12 m [facility], were you homeless or living in a intermediate (including now)? No 03/05/2024 Comments Unknown Sex [...] documented as of this encounter Care Teams Agricultural Sciences Professor Relationship Specialty Start Date End Date Kvng Linton MD [address] [place] [address] PCP - General Internal Medicine 11/27/22 Kvng Linton MD [address] [place] [address] PCP - Rashid GALVEZ 07/22/23 Reina Palma LPN [address] [place] [address] 10/06/24 documented as of this encounter
--- OUTSIDE RECORDS SUMMARY | 2025-03-31 11:01 | XMS_ITS | Encounter Summary ---
Author Organization [facility] Address [address] [place] [address] Care Team Providers Care Staffing Account Manager Name Role Phone Kvng Linton MD Primary Care Provider Kvng Linton MD Unavailable Saturday, Elvi SHANKER OUT Unavailable [phone] Heydi Parker RN Unavailable Reina Palma SHANKER OUT Unavailable Encounter Details Date Type Department Care Team (Late st Contact Info) Description 03/02/2024 Abstract [facility] [place] [facility] [address] [facility] 110 [place] [address] Kvng Linton MD 112 [facility] 110 [place] [address] Social History Tobacco Use Types [...] and Family Not on file 03/05/2024 Attends Taoism Services Not on file 03/05 Active Member [...] Recorded Patient Health Questionnaire-2 Score 0 02/06/2024 [facility] of Occupat ional [facility] - Occupational Stress Questionnaire Answer [...] place to sleep or slept in a correction (including now)? No 10/30/2023 Housing Stability Vital Sign Answer Kody e Recorded In the last 12 months, was t here a time when you were not able to pay the mortgage or rent on time? No 03/05/2024 In the past 12 months, how m any times have you moved where you were living? 0 03/05/2024 At any time in the past 12 m [facility], were you homeless or living in a correction (including now)? No 03/05/2024 Comments Unknown Sex [...] documented as of this encounter Care Teams Staffing Account Manager Relationship Specialty Start Date End Date Kvng Linton MD [address] [facility] 110 [place] [address] PCP - General Internal Medicine 11/27/22 Kvng Linton MD [address] [facility] 110 [place] [address] PCP - Rahsid GALVEZ 07/22/23SaturdayElvi LPN [address] [facility] 110 [place] [address] Licensed Practical Nurse Family Medicine 02/26/24 08/28/24 Heydi Parker, FAUSTO [address] [place] [address] Licensed Practical Nurse Family Medicine 08/28/24 10/06/24 Reina Palma LPN [address] [facility] 110 [place] [address] 10/06/24 documented as of this encounter
--- OUTSIDE RECORDS SUMMARY | 2025-03-31 11:01 | XMS_ITS | Patient Health Record ---
Author Organization [facility] Address [address] [place] [address] Care Team Providers Care Community Relations Rep Name Role Phone Yanira DELONG, Hayde Primary [...] Status W/U Status Risk Notes Problem Anxiety (09048483) Anxiety (F41.9) Active confi rmed Problem Peripheral neuropath y (963861670) Peripheral neuropathy (G62.9) Active confirmed Problem Transient ischemic attack (094309007) TIA (transient ischemic attack) (G45.9) Active confirmed Problem Restless legs (52068656) RLS (restless legs syndrome) (G25.81) Active confirmed Problem Edema (254894630) Edema extremit ies (R60.0) Active confirmed Problem Hyperlipoproteinemia (6613856) 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) Active confirmed Problem Acute osteomyelitis of ankle and/or foot (878446271) Osteomyelitis of ankle or foot, right, acute (M86.171) Active confirmed Problem Essential hypertension (80729031) BP (high blood pressure) (I10) Active confirmed Problem 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 (L97.512) Active confirmed Problem 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 of necrosis (L97.415) Active confirmed Problem Atrophy of nail (978739265) Atrophy of nail (L60.3) Active confirmed Problem Chronic 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 layer exposed (L97.412) Active confirmed Problem Chronic ulcer of right foot (disorder) (80562545551788021) Chronic ulcer of right foot with fat layer exposed (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
--- OUTSIDE RECORDS SUMMARY | 2025-03-31 11:04 | XMS_ITS | CCD ---
Author Organization [facility] Care Team Providers Care Career Development Coordinator/Teacher Name Role Phone ANUP JOHN Attending Unavailable [...] KVNG LINTON B Primary Care Unavailable Saturday WAREHOUSE SELECTOR, Elvi Unavailable Saturday WAREHOUSE SELECTOR, Elvi Unavailable Heydi Parker RN Unavailable [place] WAREHOUSE SELECTOR, Reina Unavailable Unavailable [place] WAREHOUSE SELECTOR, Reina Unavailable TSERING STARR Attending Unavailable GABRIELA GILMAN Attending Unavailable KVNG LINTON Attending Unavailable NICKY RIDDLE Attending Unavailable KATLIN ROMERO Attending Unavailable KATLIN ROMERO Attending Unavailable NICKY RIDDLE Attending Unavailable Allergies Allergy Classification Reported Allergen(s) Allergy Type Date of Onset Reaction(s) Facility (1 source) Amoxicillin / Clavulanate Drug Allergy [facility] Repository (1 source) Cephalexin Drug Allergy 9 [facility]ository (1 source) Sulfonamides (Antibiotic) Drug allergy (disorder) [facility]ository (20 sources) Sulfonamides (Antibiotic) Drug Allergy 3 [facility] (20 sources) Amoxicillin-Pot Clavulanate; Translations: [AMOXICILLIN-POT CLAVULANATE] Drug Allergy 1 Nausea Only [facility] Healthcare (3 sources) Sulfonamides (Antibiotic); Translations: [SULFA (SULFONAMIDE ANTIBIOTICS)] Propensity to adverse reactions to drug (disorder) 2 [facility] Repository Medications Current Medications Medication Drug Class(es) Dates Sig (Normalized) Sig (Original) acetaminophen 325 mg / HYDROcodone bitartrate 5 mg oral tablet (3 sources) Opioid Agonist Start: 10-22-2022 End: 09-04-2023 take 1 tablet by mouth four times daily as needed HYDROcodone-aceta minophen ([place]) 5-325 MG tablet Take 1 tablet by [...] Start: 06-17-2023 take 2 tablets by mo [facility] in the morning rOPINIRole (Requip) 0.5 [...] 02/23/2025 03/05/2025 Active take [facility] hours as needed traMADol [...] 03-12-2023 Chronic Other aftercare (1 source) Other detention (current) drug therapy; Translations: [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 Dressing type: bandage [facility] XR FOOT RT MIN 3Von 01-28-[address] [place] [address] XRay Report Signed Patient: BERENICE SILVA MR#: [id number] : 1945 Acct:[id number] Age/Sex: 79 / F ADM Date: 01/27/25 Loc: RAD Attending Dr: Anup John D.P.M. Ordering Physician: Anup John D.P.M. Date of Service: 01/27/25 Procedure(s): XR foot RT min 3V Accession Number(s): [id number] cc: KVNG LINTON ; Anup John D.P.M. The [place] [id number] Patient Name: BERENICE SILVA MRN: [facility]:[id number] date: 1945 Sex: F Assigned Patient Location: [facility] Current Patient Location: Accession/Order Number: [id number] Exam Date: 01/27/2025 15:38 Report Date: 01/27/2025 [...] Fish M.D. 01/27/2025 3:41 PM Dictation Location: [place] [address] Electronically authenticated by: [id number] Y Date: 01/27/2025 15:41 Dictated By: Lew Fish D.O. Signed By: 01/27/25 1543 DD/ 1541 TD/TT: Despatching And Receiving Clerk: [facility] Radiology, Radiologist, MD - 01/27/2025 [place] [address] XRay Report Signed Patient: BERENICE SILVA MR#: [id number] : 1945 Acct:[id number] Age/Sex: 79 / F ADM Date: 01/27/25 Loc: [facility] Attending Dr: Anup John D.P.M. Ordering Physician: Anup John D.P.M. Date of Service: 01/27/25 Procedure(s): XR foot RT min 3V Accession Number(s): [id number] cc: KVNG LINTON ; Anup John D.P.M. The [place] [address] Patient Name: BERENICE SILVA MRN: [id number] date: 1945 Sex: F Assigned Patient Location: [facility] Current Patient Location: Accession/Order Number: [id number] Exam Date: 01/27/2025 15:38 Report Date: 01/27/2025 [...] Fish M.D. 01/27/2025 3:41 PM Dictation Location: [place] [address] Electronically authenticated by: [id number] Y Date: 01/27/2025 15:41 Dictated By: Lew Fish D.O. Signed By: 01/27/25 1543 DD/ 1541 TD/TT: Despatching And Receiving Clerk: [facility] [employer] Radiology Study observation (narrative) [facility] XR FOOT RT MIN 3VOrdered By: Radiologist Radiology on 01-27-2025 [facility] [employer] Work Phone: CBC (INCLUDES DIFF/PLT)on Basophils (Bld) [#/Vol] 0.053 10*3/uL Normal 0-200 [facility] Comment on above: Performed By: #### 6 399, 7350, 16508 #### [facility] [address], [address] [place] [id number] Instrument Repair Specialist: Keagan Holly MD Basophils/100 WBC (Bld) 1.0 % Normal [facility] Comment on above: Performed By: #### 6 399, 7600, 53081 #### [facility] of [place] [address] Instrument Repair Specialist: Keagan Holly MD Eosinophils (Bld) [#/Vol] 0.143 10*3/uL Normal 15-500 [facility] Comment on above: Performed By: #### 6 399, 7600, 78871 #### [facility] of [place] [address] Instrument Repair Specialist: Keagan Holly MD Eosinophils/100 WBC (Bld) 2.7 % Normal [facility] Comment on above: Performed By: #### 6 399, 7600, 99830 #### [facility] of [place] [address] Instrument Repair Specialist: Keagan Holly MD Erythrocyte distribution width (RBC) [Ratio] 11.9 % Normal 11.0-15.0 [facility] Comment on above: Performed By: #### 6 399, 7600, 13195 #### [facility] of [place] [address] Instrument Repair Specialist: Keagan Holly MD Hematocrit (Bld) [Volume fraction] 38.1 % Normal 35.0-45.0 [facility] Comment on above: Performed By: #### 6 399, 7600, 75558 #### [facility] of [place] [address] Instrument Repair Specialist: Keagan Holly MD Hemoglobin (Bld) [Mass/Vol] 13.1 g/dL Normal 11.7-15.5 [facility] Comment on above: Performed By: #### 6 399, 7600, 55953 #### [facility] of [place] [address] Instrument Repair Specialist: Keagan Holly MD Lymphocytes (Bld) [#/Vol] 1.988 10*3/uL Normal 850-3900 [facility] Comment on above: Performed By: #### 6 399, 7600, 01889 #### [facility] [place] [address] Instrument Repair Specialist: Keagan Holly MD Lymphocytes/100 WBC (Bld) 37.5 % Normal [facility] Comment on above: Performed By: #### 6 399, 7600, 14899 #### [facility] [place] [address] Instrument Repair Specialist: Keagan Holly MD MCH (RBC) [Entitic mass] 31.3 pg Normal 27.0-33.0 [facility] Comment on above: Performed By: #### 6 399, 7600, 98269 #### [facility] [place] [address] Instrument Repair Specialist: Keagan Holly MD MCHC (RBC) [Mass/Vol] 34.4 [...] condition. Performed By: #### 6 399, 7600, 09806 #### [facility] of [place] [address] Instrument Repair Specialist: Keagan Holly MD MCV (RBC) [Entitic vol] 91.1 fL Normal 80.0-100.0 [facility] Comment on above: Performed By: #### 6 399, 7600, 28235 #### [facility] [place] [address] Instrument Repair Specialist: Keagan Holly MD Monocytes (Bld) [#/Vol] 0.392 10*3/uL Normal 200-950 [facility] Comment on above: Performed By: #### 6 399, 7600, 48098 #### [facility] [place] [address] Instrument Repair Specialist: Keagan Holly MD Monocytes/100 WBC (Bld) 7.4 % Normal [facility] Comment on above: Performed By: #### 6 399, 7600, 30586 #### [facility] of [place] [address] Instrument Repair Specialist: Keagan Holly MD Neutrophils (Bld) [#/Vol] 2.724 10*3/uL Normal 2821-0484 [facility] Comment on above: Performed By: #### 6 399, 7600, 06714 #### [facility] of [place] [address] Instrument Repair Specialist: Keagan Holly MD Neutrophils/100 WBC (Bld) 51.4 % Normal [facility] Comment on above: Performed By: #### 6 399, 7600, 93257 #### [facility] [place] [address] Instrument Repair Specialist: Keagan Holly MD Platelet mean volume (Bld) [Entitic vol] 9.1 fL Normal 7.5-12.5 [facility] Comment on above: Performed By: #### 6 399, 7600, 53247 #### [facility] [place] [address] Instrument Repair Specialist: Keagan Holly MD Platelets (Bld) [#/Vol] 335 10*3/uL Normal 140-400 [facility] Comment on above: Performed By: #### 6 399, 7600, 15644 #### [facility] of [place] [address] Instrument Repair Specialist: Keagan Holly MD RBC (Bld) [#/Vol] 4.18 10*6/uL Normal 3.80-5.10 [facility] Comment on above: Performed By: #### 6 399, 7600, 97631 #### [facility] of [place] [address] Instrument Repair Specialist: Keagan Holly MD WBC (Bld) [#/Vol] 5.3 10*3/uL Normal 3.8-10.8 [facility] Comment on above: Performed By: #### 6 399, 7600, 92006 #### [facility] of [address], [address] [place] [address] Instrument Repair Specialist: Keagan Holly MD [facility] 08-04-2024 Albumin [Mass/Vol] 4.4 g/dL Normal 3.6-5.1 [facility] Comment on above: Performed By: #### 6 399, 7600, 94471 #### [facility] of [address], [address] [place] [address] Instrument Repair Specialist: Keagan Holly MD Albumin/Globulin [Mass ratio] 1.8 {ratio} Normal 1.0-2.5 [facility] Comment on above: Performed By: #### 6 399, 7600, 24397 #### [facility] of [place] [address] Instrument Repair Specialist: Keagan Holly MD ALP [Catalytic activity/Vol] 68 U/L Normal 37-153 [facility] Comment on above: Performed By: #### 6 399, 7600, 25585 #### [facility] of [place] [address] Instrument Repair Specialist: Keagan Holly MD ALT [Catalytic activity/Vol] 15 U/L Normal 6-29 [facility] Comment on above: Performed By: #### 6 399, 7600, 70848 #### [facility] of [place] [address] Instrument Repair Specialist: Keagan Holly MD AST [Catalytic activity/Vol] 18 U/L Normal 10-35 [facility] Comment on above: Performed By: #### 6 399, 7600, 99085 #### [facility] of [place] [address] Instrument Repair Specialist: Keagan Holly MD Bilirubin [Mass/Vol] 0.5 mg/dL Normal 0.2-1.2 [facility] Comment on above: Performed By: #### 6 399, 7600, 80058 #### [facility] of [address] [place] [address] Instrument Repair Specialist: Keagan Holly MD BUN/CREATININE RATIO SEE NOTE: Normal 6- [facility] Comment on above: Result Comment: Not Reported: BUN and Creatinine are within reference range. Performed By: #### 6 399, 7600, 35942 #### [facility] of [address], [address] [place] [address] Instrument Repair Specialist: Keagan Holly MD Calcium [Mass/Vol] 9.5 mg/dL Normal 8.6-10.4 [facility] Comment on above: Performed By: #### 6 399, 7600, 59760 #### [facility] of [address], [address] [place] [address] Instrument Repair Specialist: Keagan Holly MD Chloride [Moles/Vol] 100 mmol/L Normal 98-110 [facility] Comment on above: Performed By: #### 6 399, 7600, 99855 #### [facility] of [address], [address] [place] [address] Instrument Repair Specialist: Keagan Holly MD CO2 [Moles/Vol] 31 mmol/L Normal 20-32 [facility] Comment on above: Performed By: #### 6 399, 7600, 65583 #### [facility] of [place] [address] Instrument Repair Specialist: Keagan Holly MD Creatinine [Mass/Vol] 0.74 mg/dL Normal 0.60-1.00 [facility] Comment on above: Performed By: #### 6 399, 7600, 25552 #### [facility] of [address], [address] [place] [address] Instrument Repair Specialist: Keagan Holly MD GFR/1.73 sq M.predicted among non-blacks MDRD (S/P/Bld) [Vol rate/Area] 84 mL/min/{1.73_m2} Normal > OR = 60 [facility] Comment on above: Performed By: #### 6 399, 7600, 71504 #### [facility] of [address], [address] [place] [address] Instrument Repair Specialist: Keagan Holly MD Globulin (S) [Mass/Vol] 2.5 g/dL Normal 1.9-3.7 [facility] Comment on above: Performed By: #### 6 399, 7600, 04425 #### [facility] of [place] [address] Instrument Repair Specialist: Keagan Holly MD Glucose [Mass/Vol] 88 mg/dL Normal 65-99 [facility] Comment on above: Result Comment: Fasting reference interval Performed By: #### 6 399, 7600, 23345 #### [facility] of [place] [address] Instrument Repair Specialist: Keagan Holly MD Potassium [Moles/Vol] 4.0 mmol/L Normal 3.5-5.3 [facility] Comment on above: Performed By: #### 6 399, 7600, 33496 #### [facility] of [place] [address] Instrument Repair Specialist: Keagan Holly MD Protein [Mass/Vol] 6.9 g/dL Normal 6.1-8.1 [facility] Comment on above: Performed By: #### 6 399, 7600, 13622 #### [facility] of [place] [address] Instrument Repair Specialist: Keagan Holly MD Sodium [Moles/Vol] 138 mmol/L Normal 135-146 [facility] Comment on above: Performed By: #### 6 399, 7600, 06514 #### [facility] of [place] [address] Instrument Repair Specialist: Keagan Holly MD Urea nitrogen [Mass/Vol] 16 mg/dL Normal 7-25 [facility] Comment on above: Performed By: #### 6 399, 7600, 57963 #### [facility] of [place] [address] Instrument Repair Specialist: Keagan Holly MD LIPID PANEL, [facility] [place] 07-22 Cholesterol [Mass/Vol] 261 mg/dL High <200 [facility] Comment on above: Order Comment: FASTI NG:YES FASTING: YES Performed By: #### 6 399, 7600, 89048 #### [facility] [address], [address] [place], [place] [address] Instrument Repair Specialist: Keagan Holly MD Cholesterol in HDL [Mass/Vol] 66 mg/dL Normal > OR = 50 [facility] Comment on above: Order Comment: FASTI NG:YES FASTING: YES Performed By: #### 6 399, 7600, 13470 #### [facility] [address], [address] [place] [address] Instrument Repair Specialist: Keagan Holly MD Cholesterol in LDL [Mass/Vol] [...] LDL-C. Edwin SS et al. LUL. 2013;310(19): 7017-8312 (http://education.alive.cn/faq/COK233) Performed By: #### 6 399, 7600, 06604 #### [facility] [address], [address] [place] [address] Instrument Repair Specialist: Keagan Holly MD Cholesterol.total/C holesterol in HDL [Mass ratio] 4.0 {ratio} Normal <5.0 [facility] Comment on above: Order Comment: FASTI NG:YES FASTING: YES Performed By: #### 6 399, 7600, 35511 #### [facility] [address], [address] [place], [place] [address] Instrument Repair Specialist: Keagan Holly MD NON HDL CHOLESTEROL 195 mg/dL (calc) High <130 [facility] Comment on above: Order Comment: FASTI NG:YES FASTING: YES Result Comment: For patients with diabetes plus 1 major ASCVD risk factor, treating to a non-HDL-C goal of <100 mg/dL (LDL-C of <70 mg/dL) is considered a therapeutic option. Performed By: #### 6 399, 7600, 26102 #### [facility] [address], [address] [place] [address] Instrument Repair Specialist: Keagan Holly MD Triglyceride [Mass/Vol] 181 mg/dL High <150 [facility] Comment on above: Order Comment: FASTI NG:YES FASTING: YES Performed By: #### 6 399, 7600, 00085 #### [facility] [address], [address] [place] [address] Instrument Repair Specialist: Keagan Holly MD VITAMIN D,25-OH,TOTAL,IAon 0 08-04-2024 [...] D, (D2,D3), LC/MS/MS is recommended: order code 13203 (patients >2yrs). See Note 1 Note 1 For additional information, please refer to http://education.alive.cn/faq/UHL020 (This link is being provided for informational/ educational purposes only.) Performed By: #### 6 399, 7600, 24043 #### [facility] [address], [address] [place] [address] Instrument Repair Specialist: Keagan Holly MD CT COLONOGRAPHY SCREENINGon 01-21-2024 [...] presence or absence of which will not quality management nurse of the patient. In addition, digital rectal [...] Curry MD on 01/21/2024 8:[address] [facility] Cult,Bloodon 10-31-2023 Cult,Blood Specimen Description .BLOOD Special Requests 20ML RAC Culture NO GROWTH 5 DAYS Report Status FINAL 10/31/2023 Normal [facility] Comment on above: Performed By: #### B C #### [facility] [address] [place], [place] [id number] Case Operator: Ayden Regan MD Cult,Blood Specimen Description .BLOOD Special Requests 20ML LFT WRIST Culture NO GROWTH 5 DAYS Report Status FINAL 10/31/2023 Normal [facility] Comment on above: Performed By: #### B C #### [facility] [address] [place], [place] [id number] Case Operator: Ayden Regan MD CBC with Diffon 10-27-2023 Abs. Basophil 0.03 k/uL Normal 0.00-0.20 [facility] Comment on above: Performed By: #### L ACDS #### [address] [place], [place] [id number] Case Operator: Ayden Regan MD Abs.Imm.Granulocyte 0.03 k/uL Normal 0.00-0.30 [facility] Comment on above: Performed By: #### L ACDS #### [address] [place], [place] [id number] Case Operator: Ayden Regan MD Abs.Neutrophil (Seg) 7.25 k/uL Normal 1.50-8.10 [facility] Comment on above: Performed By: #### L ACDS #### [address] [place], [place] [id number] Case Operator: Ayden Regan MD Basophils/100 WBC (Bld) 0 % Normal 0-2 [facility] Comment on above: Performed By: #### L ACDS #### [address] [place], [place] [id number] Case Operator: Ayden Regan MD Eosinophils (Bld) [#/Vol] 0.04 10*3/uL Normal 0.00-0.44 [facility] Comment on above: Performed By: #### L ACDS #### [facility] [address] [place], [place] [id number] Case Operator: Ayden Regan MD Eosinophils/100 WBC (Bld) 0 % Low 1-4 [facility] Comment on above: Performed By: #### L ACDS #### [address] [place], [place] [id number] Case Operator: Ayden Regan MD Erythrocyte distribution width (RBC) [Ratio] 12.5 % Normal 11.8-14.4 [facility] Comment on above: Performed By: #### L ACDS #### [address] [place], [facility]83 Case Operator: Ayden Regan MD Hematocrit (Bld) [Volume fraction] 29.2 % Low 36.3-47.1 [facility] Comment on above: Performed By: #### L ACDS #### [address] [place], [facility]83 Case Operator: Ayden Regan MD Hemoglobin (Bld) [Mass/Vol] 9.7 g/dL Low 11.9-15.1 [facility] Comment on above: Performed By: #### L ACDS #### [address] [place], [place] [id number] Case Operator: Ayden Regan MD Immature granulocytes/100 WBC (Bld) 0 % Normal 0 [facility] Comment on above: Performed By: #### L ACDS #### [address] [place], [facility]83 Case Operator: Ayden Regan MD Lymphocytes (Bld) [#/Vol] 1.83 10*3/uL Normal 1.10-3.70 [facility] Comment on above: Performed By: #### L ACDS #### [address] [place], [place] [id number] Case Operator: Ayden Regan MD Lymphocytes/100 WBC (Bld) 18 % Low 24-43 [facility] Comment on above: Performed By: #### L ACDS #### [facility] [address] [place], [place] [address] Case Operator: Ayden Regan MD MCH (RBC) [Entitic mass] 30.1 pg Normal 25.2-33.5 [facility] Comment on above: Performed By: #### L ACDS #### [facility] [address] [place], [place] [id number] Case Operator: Ayden Regan MD MCHC (RBC) [Mass/Vol] 33.2 g/dL Normal 28.4-34.8 [facility] Comment on above: Performed By: #### L ACDS #### [address] [place], [place] [id number] Case Operator: Ayden Regan MD MCV (RBC) [Entitic vol] 90.7 fL Normal 82.6-102.9 [facility] Comment on above: Performed By: #### L ACDS #### [address] [place], [place] [id number] Case Operator: Ayden Regan MD Monocytes (Bld) [#/Vol] 1.02 10*3/uL Normal 0.10-1.20 [facility] Comment on above: Performed By: #### L ACDS #### [facility] [address] [place], [facility]83 Case Operator: Ayden Regan MD Monocytes/100 WBC (Bld) 10 % Normal 3-12 [facility] Comment on above: Performed By: #### L ACDS #### [facility] [address] [place], [place] [id number] Case Operator: Ayden Regan MD Neutrophil (Seg) 71 % High 36-65 [facility] Comment on above: Performed By: #### L ACDS #### [facility] [address] [place], [place] [phone] Case Operator: Ayden Regan MD NRBC Automated 0.0 per 100 WBC Normal 0.0 [facility] Comment on above: Performed By: #### L ACDS #### [facility] [address] [place], [facility]83 Case Operator: Ayden Regan MD Platelet mean volume (Bld) [Entitic vol] 8.7 fL Normal 8.1-13.5 [facility] Comment on above: Performed By: #### L ACDS #### [address] [place] [address] Case Operator: Ayden Regan MD Platelets (Bld) [#/Vol] 237 10*3/uL Normal 138-453 [facility] Comment on above: Performed By: #### L ACDS #### [address] [place], [place] [address] Case Operator: Ayden Regan MD RBC (Bld) [#/Vol] 3.22 10*6/uL Low 3.95-5.11 [facility] Comment on above: Performed By: #### L ACDS #### [address] [place], [facility]83 Case Operator: Ayden Regan MD WBC (Bld) [#/Vol] 10.2 10*3/uL Normal 3.5-11.3 [facility] Comment on above: Performed By: #### L ACDS #### [address] [place], [place] [id number] Case Operator: Ayden Regan MD Comp Metabolic Pr/rfx MGon 0 10-27-2023 Albumin [Mass/Vol] 3.1 g/dL Low 3.5-5.2 [facility] Comment on above: Performed By: #### L ACDS #### [address] [place], [place] [id number] Case Operator: Ayden Regan MD Albumin/Glob Ratio 1.3 Normal 1.0-2.5 [facility] Comment on above: Performed By: #### L ACDS #### [facility] [address] [place], [place] [id number] Case Operator: Ayden Regan MD Alkaline Phos 80 U/L Normal 35-104 [facility] Comment on above: Performed By: #### L ACDS #### [facility] [address] [place], [place] [id number] Case Operator: Ayden Regan MD ALT [Catalytic activity/Vol] 9 U/L Normal 5-33 [facility] Comment on above: Performed By: #### L ACDS #### [facility] [address] [place], [place] [id number] Case Operator: Ayden Regan MD Anion gap [Moles/Vol] 8 mmol/L Low 9-17 [facility] Comment on above: Performed By: #### L ACDS #### [facility] [address] [place] [address] Dr[place], [place] [id number] Case Operator: Ayden Regan MD AST [Catalytic activity/Vol] 13 U/L Normal <32 [facility] Comment on above: Performed By: #### L ACDS #### [facility] [address] [place], [place] [id number] Case Operator: Ayden Regan MD Bilirubin [Mass/Vol] 0.6 mg/dL Normal 0.3-1.2 [facility] Comment on above: Performed By: #### L ACDS #### [facility] [address] [place] [address] Case Operator: Ayden Regan MD BUN/CRE Ratio 16 Normal 9-20 [facility] Comment on above: Performed By: #### L ACDS #### [facility] [address] [place] [address] Case Operator: Ayden Regan MD Calcium [Mass/Vol] 8.2 mg/dL Low 8.6-10.4 [facility] Comment on above: Performed By: #### L ACDS #### [facility] [address] [place], [place] [phone] Case Operator: Ayden Regan MD Chloride [Moles/Vol] 106 mmol/L Normal 98-107 [facility] Comment on above: Performed By: #### L ACDS #### [facility] [address] [place], [place] [id number] Case Operator: Ayden Regan MD CO2 [Moles/Vol] 26 mmol/L Normal 20-31 [facility] Comment on above: Performed By: #### L ACDS #### [facility] [address] [place], [place] [phone] Case Operator: Ayden Regan MD Creatinine [Mass/Vol] 0.7 mg/dL Normal 0.5-0.9 [facility] Comment on above: Performed By: #### L ACDS #### [facility] [address] [place] [address] Case Operator: Ayden Regan MD GFR/1.73 sq M.predicted among non-blacks MDRD (S/P/Bld) [Vol rate/Area] mL/min/{1.73_m2} Normal >60 [facility] Comment on above: Result Comment: These results [...] secretion. Performed By: #### L ACDS #### [facility] [address] [place], [place] [phone] Case Operator: Ayden Regan MD Glucose [Mass/Vol] 97 mg/dL Normal 70-99 [facility] Comment on above: Performed By: #### L ACDS #### [facility] [address] [place], [place] [id number] Case Operator: Ayden Regan MD Potassium [Moles/Vol] 3.6 mmol/L Low 3.7-5.3 [facility] Comment on above: Performed By: #### L ACDS #### [facility] [address] [place], [place] [id number] Case Operator: Ayden Regan MD Protein [Mass/Vol] 5.4 g/dL Low 6.4-8.3 [facility] Comment on above: Performed By: #### L ACDS #### [facility] [address] [place] [address] [address] [place], [place] [id number] Case Operator: Ayden Regan MD Sodium [Moles/Vol] 140 mmol/L Normal 135-144 [facility] Comment on above: Performed By: #### L ACDS #### [address] [place], [place] [id number] Case Operator: Ayden Regan MD Urea nitrogen [Mass/Vol] 11 mg/dL Normal 8-23 [facility] Comment on above: Performed By: #### L ACDS #### [facility] [address] [place], [place] [id number] Case Operator: Ayden Regan MD Cult,Urineon 10-27-2023 Cult,Urine Specimen Description .URINE,STRAIGHT CATHETER Culture STREPTOCOCCI, BETA HEMOLYTIC GROUP B 10 to 50,000 CFU/ML Report Status FINAL 10/27/2023 Normal [facility] Comment on above: Performed By: #### U RC #### [address] [id number] Case Operator: Nahum Nixon MD [facility] [address] [place] [address] Case Operator: Ayden Regan MD Procalcitoninon 10-27-2023 Procalcitonin 0.06 ng/mL Normal 0.00-0.09 [facility] Comment on above: Result Comment: Suspected [...] entered into the Change in Procalcitonin Calculator ([email or web address]-[email or web address]) to determine the patient's Mortality Risk Prognosis In healthy neonates, plasma Procalcitonin (PCT) concentrations increase gradually after , reaching peak values at about 24 hours of age then decrease to normal values below 0.5 ng/mL by 48-72 hours of age. Performed By: #### P RCAL #### [address] [id number] Case Operator: Nahum Nixon MD CBC with Diffon 10-26-2023 Abs. Basophil 0.04 k/uL Normal 0.00-0.20 [facility] Comment on above: Performed By: #### T BRETT MELENDEZ, CP #### [facility] [address] [place] [address] Case Operator: Ayden Regan MD Abs.Imm.Granulocyte 0.04 k/uL Normal 0.00-0.30 [facility] Comment on above: Performed By: #### T BRETT MELENDEZ, CP #### [facility] [address] [place] [address] Case Operator: Ayden Regan MD Abs.Neutrophil (Seg) 9.87 k/uL High 1.50-8.10 [facility] Comment on above: Performed By: #### BRETT ALMANZA, CP #### [address] [place], [id number] Case Operator: Ayden Regan MD Basophils/100 WBC (Bld) 0 % Normal 0-2 [facility] Comment on above: Performed By: #### BRETT ALMANZA, CP #### [address] [place] [id number] Case Operator: Ayden Regan MD Eosinophils (Bld) [#/Vol] 0.06 10*3/uL Normal 0.00-0.44 [facility] Comment on above: Performed By: #### BRETT ALMANZA, CP #### [address] [place], [place] [address] Case Operator: Ayden Regan MD Eosinophils/100 WBC (Bld) 1 % Normal 1-4 [facility] Comment on above: Performed By: #### BRETT ALMANZA, CP #### [address] [place], [id number] Case Operator: Ayden Regan MD Erythrocyte distribution width (RBC) [Ratio] 12.1 % Normal 11.8-14.4 [facility] Comment on above: Performed By: #### BRETT ALMANZA, CP #### [address] [place], [id number] Case Operator: Ayden Regan MD Hematocrit (Bld) [Volume fraction] 37.2 % Normal 36.3-47.1 [facility] Comment on above: Performed By: #### BRETT ALMANZA, CP #### [address] [place], [id number] Case Operator: Ayden Regan MD Hemoglobin (Bld) [Mass/Vol] 12.6 g/dL Normal 11.9-15.1 [facility] Comment on above: Performed By: #### BRETT ALMANZA, CP #### [address] [place], [place] [id number] Case Operator: Ayden Regan MD Immature granulocytes/100 WBC (Bld) 0 % Normal 0 [facility] Comment on above: Performed By: #### BRETT ALMANZA, CP #### [address] [place] [id number] Case Operator: Ayden Regan MD Lymphocytes (Bld) [#/Vol] 0.81 10*3/uL Low 1.10-3.70 [facility] Comment on above: Performed By: #### BRETT ALMANZA, CP #### [address] [place], [id number] Case Operator: Ayden Regan MD Lymphocytes/100 WBC (Bld) 7 % Low 24-43 [facility] Comment on above: Performed By: #### BRETT ALMANZA, CP #### [address] [place], [place] [id number] Case Operator: Ayden Regan MD MCH (RBC) [Entitic mass] 30.4 pg Normal 25.2-33.5 [facility] Comment on above: Performed By: #### BRETT ALMANZA, CP #### [address] [place], [place] [id number] Case Operator: Ayden Regan MD MCHC (RBC) [Mass/Vol] 33.9 g/dL Normal 28.4-34.8 [facility] Comment on above: Performed By: #### BRETT ALMANZA, CP #### [address] [place], [place] [id number] Case Operator: Ayden Regan MD MCV (RBC) [Entitic vol] 89.9 fL Normal 82.6-102.9 [facility] Comment on above: Performed By: #### BRETT ALMANZA, CP #### [facility] [address] [place] [address] Dr[place], [place] [id number] Case Operator: Ayden Regan MD Monocytes (Bld) [#/Vol] 0.89 10*3/uL Normal 0.10-1.20 [facility] Comment on above: Performed By: #### BRETT ALMANZA, CP #### [address] [place] [id number] Case Operator: Ayden Regan MD Monocytes/100 WBC (Bld) 8 % Normal 3-12 [facility] Comment on above: Performed By: #### BRETT ALMANZA, CP #### [address] [place], [place] [address] Case Operator: Ayden Regan MD Neutrophil (Seg) 84 % High 36-65 [facility] Comment on above: Performed By: #### BRETT ALMANZA, CP #### [address] [place], [place] [phone] Case Operator: Ayden Regan MD NRBC Automated 0.0 per 100 WBC Normal 0.0 [facility] Comment on above: Performed By: #### BRETT ALMANZA, CP #### [address] [place], [id number] Case Operator: Ayden Regan MD Platelet mean volume (Bld) [Entitic vol] 8.5 fL Normal 8.1-13.5 [facility] Comment on above: Performed By: #### BRETT ALMANZA, CP #### [address] [place] [address] Case Operator: Ayden Regan MD Platelets (Bld) [#/Vol] 312 10*3/uL Normal 138-453 [facility] Comment on above: Performed By: #### T BRETT MELENDEZ, CP #### [facility] [address] [place], [place] [id number] Case Operator: Ayden Regan MD RBC (Bld) [#/Vol] 4.14 10*6/uL Normal 3.95-5.11 [facility] Comment on above: Performed By: #### T BRETT MELENDEZ, CP #### [facility] [address] [place], [place] [id number] Case Operator: Ayden Regan MD WBC (Bld) [#/Vol] 11.7 10*3/uL High 3.5-11.3 [facility] Comment on above: Performed By: #### T BRETT MELENDEZ, CP #### [facility] [address] [place] [id number] Case Operator: Ayden Regan MD CT HEAD WO CONTRASTon [...] No acute intracranial findings. Interpreted by: Seven oMreno MD Signed by: Seven Moreno MD 10/26/23 Final result Normal [facility] Comp Metabolic Profon 2023 Albumin [Mass/Vol] 3.9 g/dL Normal 3.5-5.2 [facility] Comment on above: Performed By: #### T BRETT MELENDEZ, CP #### [facility] [address] [place], [place] [id number] Case Operator: Ayden Regan MD Albumin/Glob Ratio 1.2 Normal 1.0-2.5 [facility] Comment on above: Performed By: #### T BRETT MELENDEZ, CP #### [facility] [address] [place], [place] [phone] Case Operator: Ayden Regan MD Alkaline Phos 87 U/L Normal 35-104 [facility] Comment on above: Performed By: #### T BRETT MELENDEZ, CP #### [facility] [address] [place], [place] [id number] Case Operator: Ayden Regan MD ALT [Catalytic activity/Vol] 12 U/L Normal 5-33 [facility] Comment on above: Performed By: #### T BRETT MELENDEZ, CP #### [facility] [address] [place], [place] [id number] Case Operator: Ayden Regan MD Anion gap [Moles/Vol] 9 mmol/L Normal 9-17 [facility] Comment on above: Performed By: #### T BRETT MELENDEZ, CP #### [facility] [address] [place], [place] [id number] Case Operator: Ayden Regan MD AST [Catalytic activity/Vol] 15 U/L Normal <32 [facility] Comment on above: Performed By: #### T BRETT MELENDEZ, CP #### [facility] [address] [place], [place] [id number] Case Operator: Ayden Regan MD Bilirubin [Mass/Vol] 0.4 mg/dL Normal 0.3-1.2 [facility] Comment on above: Performed By: #### T BRETT MELENDEZ, CP #### [facility] [address] [place] [address] Case Operator: Ayden Regan MD BUN/CRE Ratio 16 Normal 9-20 [facility] Comment on above: Performed By: #### T BRETT MELENDEZ, CP #### [facility] [address] [place], [place] [phone] Case Operator: Ayden Regan MD Calcium [Mass/Vol] 9.2 mg/dL Normal 8.6-10.4 [facility] Comment on above: Performed By: #### T BRETT MELENDEZ, CP #### [facility] [address] [place], [place] [phone] Case Operator: Ayden Regan MD Chloride [Moles/Vol] 95 mmol/L Low 98-107 [facility] Comment on above: Performed By: #### BRETT ALMANZA, CP #### [facility] [address] [place] [address] Case Operator: Ayden Regan MD CO2 [Moles/Vol] 26 mmol/L Normal 20-31 [facility] Comment on above: Performed By: #### BRETT ALMANZA, CP #### [facility] [address] [place] [address] [place] [address] Case Operator: Ayden Regan MD Creatinine [Mass/Vol] 0.8 mg/dL Normal 0.5-0.9 [facility] Comment on above: Performed By: #### BRETT ALMANZA, CP #### [facility] [address] [place] [address] Case Operator: Ayden Regan MD GFR/1.73 sq M.predicted among non-blacks MDRD (S/P/Bld) [Vol rate/Area] 77 mL/min/{1.73_m2} Normal >60 [facility] Comment on above: Result Comment: These results [...] By: #### T BRETT MELENDEZ, CP #### [facility] [address] [place] [address] [place] [address] Case Operator: Ayden Regan MD Glucose [Mass/Vol] 119 mg/dL High 70-99 [facility] Comment on above: Performed By: #### BRETT ALMANZA, CP #### [address] [place], [place] [phone] Case Operator: Ayden Regan MD Potassium [Moles/Vol] 3.8 mmol/L Normal 3.7-5.3 [facility] Comment on above: Performed By: #### BRETT ALMANZA, CP #### [address] [place], [place] [phone] Case Operator: Ayden Regan MD Protein [Mass/Vol] 7.2 g/dL Normal 6.4-8.3 [facility] Comment on above: Performed By: #### BRETT ALMANZA, CP #### [address] [place], [place] [phone] Case Operator: Ayden Regan MD Sodium [Moles/Vol] 130 mmol/L Low 135-144 [facility] Comment on above: Performed By: #### BRETT ALMANZA, CP #### [address] [place] [address] Case Operator: Ayden Regan MD Urea nitrogen [Mass/Vol] 13 mg/dL Normal 8-23 [facility] Comment on above: Performed By: #### BRETT ALMANZA, CP #### [facility] [address] [place], [place] [phone] Case Operator: Ayden Regan MD Lactate, Sepsison 10-26-2023 Lactic Acid, Sepsis 1.0 mmol/L Normal 0.5-1.9 [facility] Comment on above: Performed By: #### L ACDS #### [facility] [address] [place] [address] Dr[place], [place] [id number] Case Operator: Ayden Regan MD Lactic Acid, Sepsis 1.6 mmol/L Normal 0.5-1.9 [facility] Comment on above: Performed By: #### L ACDS #### [address] [place], [place] [id number] Case Operator: Ayden Regan MD Troponinon 10-26-2023 Troponin, High Sens 12 ng/L Normal 0-14 [facility] Comment on above: Result Comment: High Sensitivity Troponin values cannot be compared with other Troponin methodologies. Performed By: #### L ACDS #### [address] [place], [place] [phone] Case Operator: Ayden Regan MD Troponin, High Sens 12 ng/L Normal 0-14 [facility] Comment on above: Result Comment: High Sensitivity Troponin values cannot be compared with other Troponin methodologies. Performed By: #### T ROPI, CDP, CP #### [facility] [address] [place] [address] Dr[place], [place] [phone] Case Operator: Ayden Regan MD Urinalysis w/ Microon 2023 Bilirubin, SemiQt,Ur Negative Normal NEG [facility] Comment on above: Performed By: #### L ACDS #### [address] [place], [place] [phone] Case Operator: Ayden Regan MD Blood, Urine Negative Normal NEG [facility] Comment on above: Performed By: #### L ACDS #### [facility] [address] [place] [address] Dr[place], [place] [phone] Case Operator: Ayden Regan MD Clarity (U) Clear Normal CLEAR [facility] Comment on above: Performed By: #### L ACDS #### [facility] [address] [place], [place] [phone] Case Operator: Ayden Regan MD Color (U) Yellow Normal YEL [facility] Comment on above: Performed By: #### L ACDS #### [facility] [address] [place], [place] [phone] Case Operator: Ayden Regan MD Epithelial cells LM Ql (Urine sed) 0 TO 2 Normal 0-25 [facility] Comment on above: Performed By: #### L ACDS #### [facility] [address] [place] [address] Dr[place], [place] [id number] Case Operator: Ayden Regan MD Glucose Ql (U) Negative Normal NEG [facility] Comment on above: Performed By: #### L ACDS #### [facility] [address] [place] [address] Dr[place], [place] [phone] Case Operator: Ayden Regan MD Ketones Ql (U) Negative Normal NEG [facility] Comment on above: Performed By: #### L ACDS #### [facility] [address] [place] [address] Dr. [place], [place] [phone] Case Operator: Ayden Regan MD Leukocyte esterase Test strip Ql (U) Negative Normal NEG [facility] Comment on above: Performed By: #### L ACDS #### [facility] [address] [place] [address] Dr[place], [place] [phone] Case Operator: Ayden Regan MD Nitrite,Ur Negative Normal NEG [facility] Comment on above: Performed By: #### L ACDS #### [facility] [address] [place] [address] Dr[place], [place] [phone] Case Operator: Ayden Regan MD PH,Ur 6.5 Normal 5.0-9.0 [facility] Comment on above: Performed By: #### L ACDS #### [facility] [address] [place], [place] [phone] Case Operator: Ayden Regan MD Protein Ql (U) Negative Normal NEG [facility] Comment on above: Performed By: #### L ACDS #### [facility] [address] [place], [place] [phone] Case Operator: Ayden Regan MD Spec. [place],Ur 1.010 Normal 1.010-1.020 [facility] Comment on above: Performed By: #### L ACDS #### [facility] [address] [place] [address] Dr[place], [place] [id number] Case Operator: Ayden Regan MD Urine RBC's None Normal 0-2 [facility] Comment on above: Performed By: #### L ACDS #### [facility] [address] [place] [address] Dr[place], [place] [phone] Case Operator: Ayden Regan MD Urine WBC's None Normal 0-5 [facility] Comment on above: Performed By: #### L ACDS #### [facility] [address] [place] [address] [place], [place] [phone] Case Operator: Ayden Regan MD Urobilinogen,Ur Normal Normal 0.0-1.0 [facility] Comment on above: Performed By: #### L ACDS #### [facility] [address] [place] [address] Dr[place], [place] [phone] Case Operator: Ayden Regan MD XR CHEST PORTABLEon 10-26-19 [...] Ayden Siegel MD 10/26/23 Final result Normal [facility] ACID FAST SMEAR AND CXon Acid Fast Culture Negative Normal [facility] Comment on above: Result Comment: No a broderick fast bacilli isolated after 6 weeks. Performed By: #### A FB #### [facility] [address] [place] [address] Dr. Shari Allen Acid Fast Smear Negative Normal [facility] Comment on above: Performed By: #### A FB #### [facility] [address] [place] [address] Dr. Shari Allen [employer] Specimen Processing Concentration Normal [facility] Comment on above: Performed By: #### A FB #### [facility] [address] [place] [address] Dr. Shari Allen FUNGAL CULTUREon 2022 Fungus (Mycology) Culture Final report [facility] Comment on above: Performed By: #### C XFUN #### [facility] [address] [place] [address] Dr. Shari Allen Fungus Stain Final report Normal [facility] Comment on above: Performed By: #### C XFUN #### [facility] [address] [place] [address] Dr. Shari Allen Result 1 Comment Normal [facility] Comment on above: Result Comment: CHINO/ Calcofluor preparation: no fungus observed. Performed By: #### C XFUN #### [facility] [address] [place] [address] Dr. Shari Allen Result Comment: No y east or mold isolated after 4 weeks. CULTURE ANAEROBICon 10-23-19 23 CULTURE ANAEROBIC Culture Observations : NO GROWTH OF ANAEROBES AT 72 HOURS. Normal [facility] Comment on above: Performed By: #### C XFUN #### [facility] [address] [address] [address] Shari Allen CULTURE OTHERon 10-22-2022 CULTURE OTHER Culture Observations : Light growth of NORMAL SKIN MARTHA. Culture Observations: NO GROWTH OF ANAEROBES AT 72 HOURS. Normal [facility] Comment on above: Performed By: #### C XFUN #### [facility] [address] [address] [address] Shari Allen GRAM STAINon 10-22-2022 COMMENTS NO ORGANISMS OBSERVED Normal [facility] Comment on above: Performed By: #### G STAIN #### [facility] [address] [place] [address] Dr. Shari Allen DIPHTHEROIDS Normal [facility] Comment on above: Performed By: #### G STAIN #### [facility] [address] [place] [address] Dr. Shari Allen EPITHELIALS [facility] Comment on above: Performed By: #### G STAIN #### [facility] [address] [place] [address] Dr. Shari Allen FUNGAL ELEMENTS Normal [facility] Comment on above: Performed By: #### G STAIN #### [facility] [address] [place] [address] Dr. Shari YEPEZ NEG BACILLI [facility] Comment on above: Performed By: #### G STAIN #### [facility] [address] [place] [address] Dr. Shari Allen GRAM NEG DIPPLOCOCCI Normal [facility] Comment on above: Performed By: #### G STAIN #### [facility] [address] [place] [address] Dr. Shari YEPEZ POS BACILLI Normal [facility] Comment on above: Performed By: #### G STAIN #### [facility] [address] [place] [address] Dr. Shari Allen GRAM POSITIVE COCCI Normal [facility] Comment on above: Performed By: #### G STAIN #### [facility] [address] [place] [address] Dr. Shari Allen GRAM STAIN SOURCE Rt 2nd Toe Normal [facility] Comment on above: Performed By: #### G STAIN #### [facility] [address] [address] [address] Shari Allen GS_DIPTH Normal [facility] Comment on above: Performed By: #### G STAIN #### [facility] [address] [place] [address] Dr. Shari Allen WBC RARE Normal [facility] Comment on above: Performed By: #### G STAIN #### [facility] [address] [address] [address] Shari Allen POINT OF CARE GLUCOSEon 04-0 Glucose [Mass/Vol] 109 mg/dL Critically high 74-106 [facility] Comment on above: Performed By: #### P OCGLUC #### [facility] [address] [place] [address] Dr. Shari Allen Glucose [Mass/Vol] 89 mg/dL Normal 74-106 [facility] Comment on above: Performed By: #### P OCGLUC #### [facility] [address] [place] [address] Dr. Shari Allen PROF CHEM 8 (BAS METB)on Anion gap [Moles/Vol] 12.2 mmol/L Normal [facility] Comment on above: Performed By: #### B MP #### [facility] [address] [place] [address] Dr. Shari Allen Calcium [Mass/Vol] 9.3 mg/dL Normal 8.5-10.1 [facility] Comment on above: Performed By: #### B MP #### [facility] [address] [place] [address] Dr. Shari Allen Chloride [Moles/Vol] 104 mmol/L Normal 98-107 [facility] Comment on above: Performed By: #### B MP #### [facility] [address] [place] [address] Dr. Shari Allen CO2 [Moles/Vol] 28.5 mmol/L Normal 21.0-32.0 [facility] Comment on above: Performed By: #### B MP #### [facility] [address] [address] [address] Shari Allen Creatinine [Mass/Vol] 0.83 mg/dL Normal 0.55-1.02 [facility] Comment on above: Performed By: #### B MP #### [facility] [address] [place] [address] Dr. Shari Allen EGFR-AF MARTINIQUAIS >60 Normal >=60 [facility] Comment on above: Performed By: #### B MP #### [facility] [address] [address] [address] Shari Allen EGFR-NON AF MARTINIQUAIS >60 Normal >=60 [facility] Comment on above: Performed By: #### B MP #### [facility] [address] [address] [address] Shari Allen Glucose [Mass/Vol] 89 mg/dL Normal 74-106 [facility] Comment on above: Performed By: #### B MP #### [facility] [address] [place] [address] Dr. Shari Allen Potassium [Moles/Vol] 3.7 mmol/L Normal 3.5-5.1 [facility] Comment on above: Performed By: #### B MP #### [facility] [address] [address] [address] Shari Allen Sodium [Moles/Vol] 141 mmol/L Normal 136-145 [facility] Comment on above: Performed By: #### B MP #### [facility] [address] [place] [address] Dr. Shari Allen Urea nitrogen [Mass/Vol] 18.0 mg/dL Normal 7.0-18.0 [facility] Comment on above: Performed By: #### B MP #### [facility] [address] [place] [address] Dr. Shari Allen Urea nitrogen/Creatinine [Mass ratio] 21.7 mg/mg Normal [facility] Comment on above: Performed By: #### B MP #### [facility] [address] [place] [address] Dr. Shari Allen POINT OF CARE GLUCOSEon 04-22 Glucose [Mass/Vol] 86 mg/dL Normal 74-106 [facility] Comment on above: Performed By: #### P OCGLUC #### [facility] [address] [place] [address] Dr. Shari Allen Glucose [Mass/Vol] 95 mg/dL Normal 74-106 [facility] Comment on above: Performed By: #### P OCGLUC #### [facility] [address] [place] [address] Dr. Shari Allen CBC AUTO DIFFon 05-07-2022 BASO # 0.0 103/ul Normal 0.0-0.1 [facility] Comment on above: Performed By: #### C BC #### [facility] [address] [place] [address] Dr. Shari Allen Basophils/100 WBC (Bld) 0.5 % Normal 0.2-2.0 [facility] Comment on above: Performed By: #### C BC #### [facility] [address] [place] [address] Dr. Shari Allen EO # 0.2 103/ul Normal 0.0-0.7 [facility] Comment on above: Performed By: #### C BC #### [facility] [address] [place] [address] Dr. Shari Allen Eosinophils/100 WBC (Bld) 2.9 % Normal 0.9-7.0 [facility] Comment on above: Performed By: #### C BC #### [facility] Laboratory [address] [place] [address] Dr. Shari Allen Erythrocyte distribution width (RBC) [Ratio] 12.6 % Normal 11.0-15.0 [facility] Comment on above: Performed By: #### C BC #### [facility] [address] [place] [address] Dr. Shari Allen Hematocrit (Bld) [Volume fraction] 38.2 % Normal 36.0-48.0 [facility] Comment on above: Performed By: #### C BC #### [facility] [address] [place] [address] Dr. Shari Allen Hemoglobin (Bld) [Mass/Vol] 12.4 g/dL Normal 12.0-16.0 [facility] Comment on above: Performed By: #### C BC #### [facility] [address] [place] [address] Dr. Shari Allen IG # 0.01 10e3/ul Normal 0.00-0.03 [facility] Comment on above: Performed By: #### C BC #### [facility] [address] [place] [address] Dr. Shari Allen IG % 0.2 % Normal 0.0-0.5 [facility] Comment on above: Performed By: #### C BC #### [facility] [address] [place] [address] Dr. Shari Allen LYMPH # 2.0 103/ul Normal 1.2-3.8 [facility] Comment on above: Performed By: #### C BC #### [facility] [address] [place] [address] Dr. Shari Allen Lymphocytes/100 WBC (Bld) 31.7 % Normal 20.5-60.0 [facility] Comment on above: Performed By: #### C BC #### [facility] [address] [place] [address] Dr. Shari Allen MANUAL DIFF REQ NO Normal [facility] Comment on above: Performed By: #### C BC #### [facility] [address] [place] [address] Dr. Shari Allen MCH (RBC) [Entitic mass] 30.7 pg Normal 26.7-34.0 [facility] Comment on above: Performed By: #### C BC #### [facility] [address] [place] [address] Dr. Shari Allen MCHC (RBC) [Mass/Vol] 32.5 g/dL Normal 29.9-35.2 [facility] Comment on above: Performed By: #### C BC #### [facility] [address] [place] [address] Dr. Shari Allen MCV (RBC) [Entitic vol] 94.6 fL Normal 81.0-99.0 [facility] Comment on above: Performed By: #### C BC #### [facility] [address] [address] [address] Shari Allen MONO # 0.5 103/ul Normal 0.3-0.8 [facility] Comment on above: Performed By: #### C BC #### [facility] [address] [address] [address] Shari Allen Monocytes/100 WBC (Bld) 8.6 % Normal 1.7-12.0 [facility] Comment on above: Performed By: #### C BC #### [facility] [address] [place] [address] Dr. Shari Allen NEUT # 3.5 103/ul Normal 1.4-6.5 [facility] Comment on above: Performed By: #### C BC #### [facility] [address] [place] [address] Dr. Shari Allen Neutrophils/100 WBC (Bld) 56.1 % Normal 43.0-75.0 [facility] Comment on above: Performed By: #### C BC #### [facility] [address] [place] [address] Dr. Shari Allen Platelet mean volume (Bld) [Entitic vol] 8.5 fL Critically low 9.5-13.5 [facility] Comment on above: Performed By: #### C BC #### [facility] [address] [place] [address] Dr. Shari Allen PLT 304 103/ul Normal 150-450 [facility] Comment on above: Performed By: #### C BC #### [facility] [address] [place] [address] Dr. Shari Allen RBC 4.04 106/ul Critically low 4.20-5.40 [facility] Comment on above: Performed By: #### C BC #### [facility] [address] [place] [address] Dr. Shari Allen WBC 6.2 103/ul Normal 4.0-11.0 [facility] Comment on above: Performed By: #### C BC #### [facility] [address] [place] [address] Dr. Shari Allen Covid-19 PCR ([facility])on 04-21 SARS-CoV-2 (COVID-19) RNA LEANN+probe Ql (Unsp spec) Not detected Normal NOT DETECTED [facility] Comment on above: Result Comment: This test is not yet approved or cleared by the [place] FDA. When there are no FDA-approved or cleared tests available, and other criteria are met, FDA can make tests available under an emergency access mechanism called an Emergency Use Authorization (EUA). The EUA for this test is supported by the [place] of Health and Human Service's (HHS's) declaration [...] SARS-CoV-2. Performed By: #### C XFUN #### [facility] [address] [place] [address] Dr. Shari Allen PROF CHEM 8 (BAS METB)on Anion gap [Moles/Vol] 11.1 mmol/L Normal [facility] Comment on above: Performed By: #### B MP #### [facility] [address] [place] [address] Dr. Shari Allen Calcium [Mass/Vol] 9.0 mg/dL Normal 8.5-10.1 [facility] Comment on above: Performed By: #### B MP #### [facility] [address] [place] [address] Dr. Shari Allen Chloride [Moles/Vol] 104 mmol/L Normal 98-107 [facility] Comment on above: Performed By: #### B MP #### [facility] [address] [address] [address] Shari Allen CO2 [Moles/Vol] 29.7 mmol/L Normal 21.0-32.0 [facility] Comment on above: Performed By: #### B MP #### [facility] [address] [address] [address] Shari Allen Creatinine [Mass/Vol] 0.80 mg/dL Normal 0.55-1.02 [facility] Comment on above: Performed By: #### B MP #### [facility] [address] [address] [address] Shari Allen EGFR-AF MARTINIQUAIS >60 Normal >=60 [facility] Comment on above: Performed By: #### B MP #### [facility] [address] [address] [address] Shari Allen EGFR-NON AF MARTINIQUAIS >60 Normal >=60 [facility] Comment on above: Performed By: #### B MP #### [facility] [address] [address] [address] Shari Allen Glucose [Mass/Vol] 87 mg/dL Normal 74-106 [facility] Comment on above: Performed By: #### B MP #### [facility] [address] [address] [address] Shari Allen Potassium [Moles/Vol] 3.8 mmol/L Normal 3.5-5.1 [facility] Comment on above: Performed By: #### B MP #### [facility] [address] [address] [address] Shari Allen Sodium [Moles/Vol] 141 mmol/L Normal 136-145 [facility] Comment on above: Performed By: #### B MP #### [facility] [address] [address] [address] Shari Allen Urea nitrogen [Mass/Vol] 14.0 mg/dL Normal 7.0-18.0 [facility] Comment on above: Performed By: #### B MP #### [facility] [address] [address] [address] Shari Allen Urea nitrogen/Creatinine [Mass ratio] 17.5 mg/mg Normal [facility] Comment on above: Performed By: #### B #### [facility] [address] [address] [address] Shari Allen Vital Signs Date Time Vital Sign Value Performing Clinician Fox romero 02-23-2025 10:110400 Body height 180.3 cm Nicky Hemmer PA Work Phone: [facility] 02-23-2025 10:11-0400 Body mass index (BMI) [Ratio] 20.33 kg/m2 Nicky Hemmer PA Work Phone: [facility] 02-23-2025 10:11040 Body weight 66.13 kg Nicky Hemmer PA Work Phone: [facility] 02-23-2025 10:11-0400 Diastolic blood pressure 82 mm[Hg] Nicky Hemmer PA Work Phone: [facility] 02-23-2025 10:11-0400 Heart rate 71 /min Nicky Hemmer PA Work Phone: [facility] 02-23-2025 10:11-0400 Respiratory rate 16 /min Nicky Hemmer PA Work Phone: [facility] 02-23-2025 10:11-0400 SaO2% (BldA) [Mass fraction] 96 % Nicky Hemmer PA Work Phone: [facility] 02-23-2025 10:11-0400 Systolic blood pressure 136 mm[Hg] Nicky Hemmer PA Work Phone: [facility] 11-11-2024 09:29-0400 Body height 180.3 cm Tsering Starr [employer] Work Phone: [facility] 11-11-2024 09:29-0400 Body mass index (BMI) [Ratio] 20.73 kg/m2 Tsering Starr [employer] Work Phone: [facility] 11-11-2024 09:29-0400 Body weight 67.41 kg Tsering Starr [employer] Work Phone: [facility] 11-11-2024 09:29-0400 Diastolic blood pressure 82 mm[Hg] Tsering Starr [employer] Work Phone: [facility] 11-11-2024 09:29-0400 Heart rate 64 /min Tsering Starr [employer] Work Phone: [facility] 11-11-2024 09:29-0400 Respiratory rate 16 /min Tsering Dg [employer] Work Phone: [facility] 11-11-2024 09:29-0400 SaO2% (BldA) [Mass fraction] 95 % Tsering Starr [employer] Work Phone: [facility] 11-11-2024 09:29-0400 Systolic blood pressure 142 mm[Hg] Tsering Starr [employer] Work Phone: [facility] 07-30-2024 09:10-0500 Body height 180.3 cm Nicky Hemmer PA Work Phone: [facility] 07-30-2024 09:10-0500 Body mass index (BMI) [Ratio] 19.67 kg/m2 Nicky Hemmer PA Work Phone: [facility] 07-30-2024 09:10-0500 Body weight 63.96 kg Nicyk Hemmer PA Work Phone: [facility] 07-30-2024 09:10-0500 Diastolic blood pressure 76 mm[Hg] Nicky Hemmer PA Work Phone: [facility] 07-30-2024 09:10-0500 Heart rate 64 /min Nicky Hemmer PA Work Phone: [facility] 07-30-2024 09:10-0500 Respiratory rate 16 /min Nicky Hemmer PA Work Phone: [facility] 07-30-2024 09:10-0500 SaO2% (BldA) [Mass fraction] 99 % Nicky Hemmer PA Work Phone: [facility] 07-30-2024 09:10-0500 Systolic blood pressure 118 mm[Hg] Nicky Hemmer PA Work Phone: [facility] 05-04-2024 15:10-0400 Body height 180.3 cm Kvng Linton MD Work Phone: [facility] 05-04-2024 15:10-0400 Body mass index (BMI) [Ratio] 19.25 kg/m2 Kvng Linton MD Work Phone: [facility] 05-04-2024 15:10-0400 Body weight 62.6 kg Kvng Linton MD Work Phone: [facility] 05-04-2024 15:10-0400 Diastolic blood pressure 74 mm[Hg] Kvng Linton MD Work Phone: [facility] 05-04-2024 15:10-0400 Heart rate 77 /min Kvng Linton MD Work Phone: [facility] 05-04-2024 15:10-0400 SaO2% (BldA) [Mass fraction] 100 % Kvng Linton MD Work Phone: [facility] 05-04-2024 15:10-0400 Systolic blood pressure 128 mm[Hg] Kvng Linton MD Work Phone: [facility] 09-04-2023 11:26-0500 Body height 180.3 cm Kvng Linton MD Work Phone: [facility] 09-04-2023 11:26-0500 Body mass index (BMI) [Ratio] 19.8 kg/m2 Kvng Linton MD Work Phone: [facility] 09-04-2023 11:26-0500 Body weight 64.41 kg Kvng Linton MD Work Phone: [facility] 09-04-2023 11:26-0500 Diastolic blood pressure 62 mm[Hg] Kvng Linton MD Work Phone: [facility] 09-04-2023 11:26-0500 Heart rate 61 /min Kvng Linton MD Work Phone: [facility] 09-04-2023 11:26-0500 SaO2% (BldA) [Mass fraction] 99 % Kvng Linton MD Work Phone: [facility] 09-04-2023 11:26-0500 Systolic blood pressure 106 mm[Hg] Kvng Linton MD Work Phone: [facility] Encounters Encounter Date Encounter Type Care Provider Facility Start: 03-16-2025 End: 03-16-2025 ambulatory KATLIN ROMERO Not Available Start: 03-16-2025 End: 03-16-2025 Postop follow up visit related to original px Katlin Romero MD Work Phone: [facility] Comment on above: Encounter for remova l of sutures Start: 03-16-2025 End: 03-16-2025 Bamboo flowsheet Katlin Romero MD Work Phone: [facility] Start: 03-16-2025 End: 03-16-2025 Bamboo flowsshelly Romero MD Work Phone: [facility] Start: 03-02-2025 End: 03-02-2025 Patient encounter procedure Katlin Romero MD Work Phone: [facility] Comment on above: Epidermal inclusion cyst (Primary Dx); Pain Start: 03-02-2025 End: 03-02-2025 ambulatory KATLIN ROMERO Not Available Start: 03-02-2025 End: 03-02-2025 Bamboo flowsheet Katlin Romero MD Work Phone: [facility] Start: 03-02-2025 End: 03-02-2025 Bamboo flowsheet Katlin Romero MD Work Phone: [facility] Start: 02-23-2025 End: 02-23-2025 Bamboo flowsheet Nicky TURNER Work Phone: [facility] [place] [facility] Start: 02-23-2025 End: 02-23-2025 Bamboo flowsheet Nicky TURNER Work Phone: [facility] [place] [facility] Start: 02-23-2025 End: 02-23-2025 Patient encounter procedure Nicky TURNER Work Phone: [facility] Comment on above: Medicare annual [facility], subsequent (Primary Dx); ACP (advance [...] 11-11-2024 End: 11-11-2024 Bamboo flowsheet Tsering Starr [employer] Work Phone: [facility] Start: 11-11-2024 End: 11-11-2024 Bamboo flowsheet Tsering Starr [employer] Work Phone: [facility] Start: 11-11-2024 End: 11-11-2024 Office outpatient visit 25 minutes Tsering Starr [employer] Work Phone: [facility] Comment on [...] Evaluation and management of inpatient BRITTANY DEGROOT [facility] Start: 03-13-2024 End: 03-14-2024 Evaluation and management of inpatient [facility] Start: 03-13-2024 End: 03-13-2024 Evaluation and management of inpatient [facility] Start: 03-05-2024 End: 03-05-2024 ambulatory KVNG LINTON [facility] Start: 02-25-2024 End: 02-25-2024 ambulatory SEBASTIAN LAWSON [facility] Start: 02-12-2024 End: 02-12-2024 ambulatory [facility] Start: 01-16-2024 End: 01-16-2024 ambulatory [facility] Start: 12-20-2023 End: 12-20-2023 Evaluation and management of inpatient AYDEN LAN [facility] Start: 12-19-2023 End: 12-20-2023 Evaluation and management of inpatient [facility] Start: 11-28-2023 End: 11-28-2023 ambulatory JESUS Newsome BINGHAM [facility] Start: 10-26-2023 End: 10-27-2023 [facility] Start: 09-05-2023 ambulatory Facility:[facility] Start: [...] Start: 10-19-2022 Encounter for preprocedural cardiovascular examination [facility] Start: 10-19-2022 Encounter for preprocedural laboratory examination [facility] Start: 10-16-2022 End: 10-17-[address] [...] Dermatology [address] [place] [id number] Katlin Romero MD [address] [place] [address] [facility] Start: 03-02-2025 End: 03-02-2025 Patient encounter procedure [facility] Comment on above: Arrived Start: 02-23-2025 End: 02-23-2025 Patient encounter procedure 02/23/2025 10:00 AM EDT Office Visit [facility] [address] [place] [address] Nicky Riddle PA [address] [place] [address] Arrived [facility] Comment on above: Arrived Start: 02-05-2025 Medicare Annual Wellness (AWV) Medicare Annual Wellness (AWV) [facility] Start: 01-06-2025 End: 01-06-2025 Patient encounter procedure 01/06/2025 11:00 AM EDT Office Visit [facility] [address] [place] [address] Tsering Starr NP [address] [place] [address] [facility] Start: 12-30-2024 End: 12-30-2024 Patient encounter procedure 12/30/2024 12:50 PM EDT Office Visit [facility] [address] [place] [address] Gabriela Gilman, PA [address] [place] [address] Arrived [facility] Comment on above: Arrived Start: 11-23-2024 End: 11-23-2024 Patient encounter procedure 11/23/2024 4:00 PM EDT Office Visit [facility] [address] [place] [address] Kvng Linton MD [address] [place] [address] [facility] Start: 11-11-2024 End: 11-11-2024 Patient encounter procedure 11/11/2024 9:30 AM EDT Office Visit [facility] [address] [place] [address] Tsering Starr NP [address] [place] [address] Arrived [facility] Comment on above: [...] sepsis Expected: 07/30/2024 (Approximate), Expires: 07/30/2025 [facility] Work Phone: Comment on above: Expected: 07/30/2024 (Approximate), Expi res: 07/30/2025 Start: 07-30-2024 End: 07-30-2025 Comprehensive metabolic 2000 panel - Serum or Plasma Comprehensive metabolic panel Lab Routine Essential (primary) hypertension (CMS/HCC) Expected: 07/30/2024 (Approximate), Expires: 07/30/2025 [facility] Comment on above: Expected: 07/30/2024 (Approximate), Expi res: 07/30/2025 Start: 07-30-2024 End: 07-30-2025 Lipid 1996 panel - Serum or Plasma Lipid panel Lab Routine Essential (primary) hypertension (CMS/HCC) Expected: 07/30/2024 (Approximate), Expires: 07/30/2025 [facility] Comment on above: Expected: 07/30/2024 (Approximate), Expi res: 07/30/2025 Start: 07-30-2024 End: 07-30-2024 Patient encounter procedure 07/30/2024 9:00 AM EST Office Visit [facility] [address] [place] [address] Nicky Riddle PA [address] [place] [address] Arrived [facility] Comment on above: Arrived Start: 05-04-2024 End: 05-04-2024 Patient encounter procedure 05/04/2024 3:15 PM EDT Office Visit [facility] [address] [place] [address] Kvng Linton MD [address] [place] [address] Arrived [facility] Comment on above: Arrived Start: 03-22-2024 Influenza vaccination Influenza Vaccine (#1) [facility] Start: 09-04-2023 End: 09-04-2025 Echocardiogram 2D complete Echocardiogram 2D complete Echocardiography Routine TIA (transient ischemic attack) Expected: 09/04/2023 (Approximate), Expires: 09/04/2025 [facility] Work Phone: Comment on above: Expected: 09/04/2023 (Approximate), Expi res: 09/04/2025 Start: 09-04-2023 End: 09-04-2023 Patient encounter procedure 09/04/2023 11:30 AM EST Office Visit [facility] [address] [facility] [address] [place] [address] Kvng Linton MD [address] [facility] [address] [place] [address] Arrived [facility] Comment on above: Arrived Start: 05-07-2023 Medicare Annual Wellness (AWV) Medicare Annual Wellness (AWV) [facility] Start: 03-22-2023 Influenza vaccination Influenza Vaccine (#1) [facility] Start: 1945 Screening for malignant neoplasm of colon [facility] Dermatopathology exam Dermatopat hology exam Pathology and Cytology Timed Epidermal inclusion cyst Release Upon Ordering for 1 Occurrences starting 03/02/2025 [facility] Work Phone: Comment on above: Release Upon Ordering for 1 Occurrences starting 03/02/2025 Immunizations Immunization Date Immunization Notes Care Provider Fa [facility] 07-05-2022 Influenza, High-dose Seasonal, Quadrivalent, Preservative Free Kvng Linton MD Work Phone: [facility] 07-05-2022 influenza virus vacc ine, unspecified formulation Kvng Linton MD Work Phone: [facility] 05-03-2021 influenza, high dose seasonal, preservative-free Kvng Linton MD Work Phone: [facility] 04-12-2020 Influenza, High-dose Seasonal, Quadrivalent, Preservative Free Kvng Linton MD Work Phone: [facility] 04-12-2020 pneumococcal conjuga te vaccine, 13 valjose Linton MD Work Phone: [facility] 04-05-2020 influenza, high dose seasonal, preservative-free Kvng Linton MD Work Phone: [facility] 04-05-2020 pneumococcal polysaccharide vaccine, 23 valjose Linton MD Work Phone: [facility] 07-02-2019 influenza, high dose seasonal, preservative-free Kvng Linton MD Work Phone: [facility] 06-05-2018 Influenza, injectabl e, Madin [place] Canine Kidney, preservative free, quadrivalent Kvng Linton MD Work Phone: [facility] 04-23-2018 seasonal influenza, intradermal, preservative free Kvng Linton MD Work Phone: [facility] 04-23-2016 influenza, injectabl e, quadrivalent, contains preservative Kvng Linton MD Work Phone: [facility] 11-16-2013 pneumococcal polysaccharide vaccine, 23 valent Kvng Linton MD Work Phone: [facility] 01-21-2012 tetanus toxoid, redu nithin diphtheria toxoid, and acellular pertussis vaccine, adsorbed Kvng Linton MD Work Phone: [facility] Payers Date Payer Category Payer Medicare [id number] 2023 Medicare (Managed Care) RASHID LU [id number] 2023 Medicare [id number] 2013 Medicare [id number] 1959 Medicare [id number] 1959 Unknown [id number] 1947 Unknown [id number] 2.16.840.1.676408.3.579.2. 593 1947 Unknown [id number] 2.16.840.1.074341.3.579.2. 593 1947 Unknown [id number] 2.16.840.1.363486.3.579.2. 593 1947 Unknown [id number] 2.16.840.1.080312.3.579.2. 593 1947 Unknown [id number] 2.16.840.1.699986.3.579.2. 593 1947 Unknown [id number] 2.16840.1.576792.3.579.2. 593 1947 Unknown [id number] 2.16.840.1.836076.3.579.2. 593 1947 Unknown [id number] 2.16.840.1.563443.3.579.2. 593 1947 Unknown [id number] 2.16.840.1.712068.3.579.2. 593 1947 Unknown [id number] 2.16.840.1.342821.3.579.2. 593 1947 Unknown [id number] 2.16.840.1.661751.3.579.2. 593 1947 Unknown [id number] 2.16.840.1.531403.3.579.2. 593 1947 Unknown [id number] 2.16.840.1.753871.3.579.2. 593 1947 Unknown [id number] 2.16.840.1.651683.3.579.2. 593 1947 Unknown [id number] 2.16.840.1.057358.3.579.2. 593 1947 Unknown [id number] 2.16.840.1.209098.3.579.2. 593 1947 Unknown [id number] 2.16.840.1.496849.3.579.2. 593 1947 Unknown [id number] 2.16.840.1.437700.3.579.2. 593 1947 Unknown [id number] 2.16.840.1.946615.3.579.2. 593 1947 Unknown [id number] 2.16.840.1.567661.3.579.2. 593 1947 Unknown [id number] 2.16840.1.947274.3.579.2. 593 1947 Unknown [id number] 2.16840.1.244396.3.579.2. 593 1947 Unknown [id number] 2.16840.1.530244.3.579.2. 593 1947 Unknown [id number] 2.16.840.1.431817.3.579.2. 593 1947 Unknown [id number] 2.16840.1.362687.3.579.2. 593 1947 Unknown [id number] 2.16.840.1.683520.3.579.2. 173 1947 Unknown [id number] 2.16.840.1.164451.3.579.2. 1286 1947 Unknown [id number] 2.16.840.1.388690.3.579.2. 1286 1947 Unknown [id number] 2.16.840.1.340232.3.579.2. 1286 8 Unknown [id number] 2.16.840.1.682970.3.579.2. 1285 1947 Unknown [id number] 2.16.840.1.986528.3.579.2. 1285 1947 Unknown [id number] 2.16.840.1.966761.3.579.2. 1285 1947 Unknown [id number] 2.16.840.1.845231.3.579.2. 1285 1947 Unknown [id number] 2.16.840.1.090534.3.579.2. 1285 1947 Unknown [id number] 2.16.840.1.702529.3.579.2. 1285 1947 Unknown [id number] 2.16840.1.848062.3.579.2. 1285 1947 Unknown [id number] 2.16840.1.707032.3.579.2. 1285 1947 Unknown [id number] 2.16840.1.428751.3.579.2. 1285 1947 Unknown [id number] 2.16840.1.759541.3.579.2. 1285 1947 Unknown [id number] 2.840.1.210274.3.579.2. 1258 1947 Unknown [id number] 2.16.840.1.047699.3.579.2. 1258 1947 Unknown [id number] 2.16.840.1.032737.3.579.2. 1258 1947 Unknown [id number] 2.16.840.1.570229.3.579.2. 1258 1947 Unknown [id number] 2.16840.1.773582.3.579.2. 1258 1947 Unknown [id number] 2.16840.1.943266.3.579.2. 1259 1947 Unknown [id number] 2.16.840.1.061380.3.579.2. 1259 Social History Date Type Detail Facility Start: 03-12-2023 End: 11-11-2024 Tobacco smoking status IDIS Ex-smoker [facility] Start: 07-30-1965 End: 07-22-1992 History of tobacco use Current smoker [facility] Start: 07-30-1965 End: 07-22-1992 History of tobacco use Cigarette Smoker [facility] Start: 03-12-2023 End: 11-11-2024 Tobacco use and exposure Smokeless tobacco non-user [facility] Start: 08-30-2023 End: 09-04-2023 Alcohol intake Not Asked [facility] Start: 03-12-2023 End: 03-05-2024 History of Social function [facility] Work Phone: Start: 03-12-2023 End: 03-05-2024 Tobacco use panel [facility] Work Phone: Start: 03-14-2023 Alcohol Comment caffeine intak e: more than 4 cups per day. [facility] Start: 1945 Sex Assigned At Not on file N [facility] Start: 03-31-2024 End: 03-16-2025 Alcoholic beverage [...] got money to buy more. Never true [facility] In the past 12 month s, was there a time when you were not able to pay the mortgage or rent on time? No [facility] Functional Status Date Assessment Result Facility 02-23-2025 Patient Health Quest ionnaire 2 item (PHQ-2) [Reported] [facility] 11-11-2024 Patient Health Quest ionnaire 2 item (PHQ-2) [Reported] [facility] Clinical Notes 02-26-2022 to 03-16-2025 [...] Visit: As needed documented in this encounter [facility] 03-02-2025 History of Present illness Narrative Images [...] days for s/r documented in this encounter [facility] 02-23-2025 History of Present illness Narrative [...] Do you have a medical power of estate attorney?: No Current Outpatient Medications on [...] a living will and durable power of estate attorney for healthcare. We discussed telling [...] Nicky POTTS, KRISTOFERC documented in this encounter [facility] 12-30-2024 History of Present illness Narrative [...] Visit: 03/02/2025, excision documented in this encounter [facility] 11-11-2024 History of Present illness Narrative [...] follow-ups on file. documented in this encounter [facility] 08-31-2024 Telephone encounter Note Acknowledged. [facility] 08-31-2024 Miscellaneous Notes Acknowledged. Patient was contacted by JOCE Castro for a sleep study and at this time she wants to cancel the study, for she doesn't feel it is necessary. documented in this encounter [facility] 08-31-2024 Telephone encounter Note Acknowledged. [facility] 08-31-2024 Miscellaneous Notes Acknowledged. Hi, this is Be patient resident care spec with Joce. Matthew, I was just calling [...] call me at my cell phone number. [phone], thank you. documented in this encounter [facility] 08-25-2024 Telephone encounter Note Patient was contacted by JOCE Castro for a sleep study and at this time she wants to cancel the study, for she doesn't feel it is necessary. [facility] 08-25-2024 Telephone encounter Note Hi, this is Be patient resident care spec with Joce. Matthew, I was just calling [...] call me at my cell phone number. [phone], thank you. [facility] 07-30-2024 History of Present illness Narrative [...] 08/27/2024) for Recheck. documented in this encounter [facility] 05-08-2024 Telephone encounter Note Sent. [facility] 05-08-2024 Miscellaneous Notes Sent. documented in this encounter [facility] 05-04-2024 History of Present illness Narrative [...] for Routine F/U. documented in this encounter [facility] 04-06-2024 Telephone encounter Note Patient came [...] OTC 1 hour prior to each pill. [facility] 04-06-2024 Miscellaneous Notes Patient came in [...] to each pill. documented in this encounter [facility] 09-04-2023 History of Present illness Narrative Subjective Patient ID: Berenice Silva is a 77 y.o. female who presents for Follow-up ([facility] stay admitted 08/24/23 dx: TIA discharged home 08/25/23 advised to take ASA 325mg). Flowsheet Row Telephone from 08/30/2023 in [facility] with Kvng Linton MD Discharge Information ED or Hospital Discharge? Hospital Patient has been contacted within two business days of discharge No Have two attempts been made to contact the patient within two business days of being discharged? No Discharge Date 08/25/23 Discharge Hospital [facility] Discharged To: Home Setting Engagement Call [...] THE MORNING 90 tablet 0 [DISCONTINUED] HYDROcodone-acetaminophen ([place]) 5-325 MG tablet Take 1 tablet by [...] for Test/Lab Review. documented in this encounter [facility] 10-22-2022 Note PROCEDURE: XR FOOT R [...] authenticated by: HALEIGH FINE Date: 2022-10-22 16:24 [facility] 10-09-2022 Note PROCEDURE: XR FOOT R [...] by: AYDEN SERRA Date: 2022-10-09 14:38 [facility] 09-18-2022 Note PROCEDURE: XR FOOT R [...] authenticated by: AYDEN SERRA Date: 2022-09-18 17:34 [facility] 05-10-2022 Note PROCEDURE: XR FOOT R T 2V COMPARISON: 02/23/2022 HISTORY: Pain FINDINGS: BONES:Stable medial effusion with plates and screws. Stable subtalar fusion. Changing configuration of the lateral sesamoid of the first metatarsal SOFT TISSUES:Negative. No visible soft tissue swelling. EFFUSION:None visible. OTHER: Negative. IMPRESSION: Intraprocedural fluoroscopic images Electronically authenticated by: AYDEN SERRA Date: 2022-05-10 17:33 [facility] 05-10-2022 Note PROCEDURE: XR FOOT R [...] by: AYDEN SERRA Date: 2022-05-10 17:32 [facility] 02-26-2022 Note PROCEDURE: XR FOOT R [...] by: AYDEN SERRA Date: 2022-02-26 07:57 [facility] Evaluation note Diagnosis TIA (transient ischemic [...] To Contact Urology Diagnoses Urinary frequency Procedures OK OFFICE/OUTPATIENT [facility] 60 MINUTES Kvng Linton MD [address] [address] Vee Hatfield MD [address] [place] [address] Referral ID Status Reason Start Date Expiration Date Visits Requested Visits Authorized [id number] Pending Review Specialty Services Required 09/04/2023 03/02/2024 1 1 * Consultation (Routine) - Pending Review Specialty Diagnoses / Procedures Referred By Contac t Referred To Contact Neurology Diagnoses TIA (transient ischemic attack) Procedures OK OFFICE/OUTPATIENT NEW [facility] 60 MINUTES Kvng Linton MD 112 [facility] 110 [place] [address] Damion Longo MD [address] [place] [address] Referral ID Status Reason Start Date Expiration Date Visits Requested Visits Authorized [id number] Pending Review Specialty Services Required 09/04/2023 03/02/2024 1 1 * Imaging (Routine) - Pending Review Specialty Diagnoses / Procedures Referred By Contac t Referred To Contact Cardiology Diagnoses TIA (transient ischemic attack) Procedures Echocardiogram 2D complete Kvng Linton MD [address] [address] Referral ID Status Reason Start Date Expiration Date Visits Requested Visits Authorized [id number] Pending Review Perform Procedure 09/04/2023 03/02/2024 1 [...] DATE CREATED AUTHOR AUTHOR'S ORGANIZ ATION 09/07/2023 [facility] DATE CREATED AUTHOR AUTHOR'S ORGANIZ ATION 11/01/2023 [facility] DATE CREATED AUTHOR AUTHOR'S ORGANIZ ATION 01/22/2024 [facility] DATE CREATED AUTHOR AUTHOR'S ORGANIZ ATION 02/27/2024 [facility] DATE CREATED AUTHOR AUTHOR'S ORGANIZ ATION 03/15/2024 [facility] DATE CREATED AUTHOR AUTHOR'S ORGANIZ ATION 08/07/2024 [facility] DATE CREATED AUTHOR AUTHOR'S ORGANIZ ATION 03/18/2025 [facility] Care Teams (unrecognized sec tion and content) Career Development Coordinator/Teacher Relationship Specialty Start Date End Date Kvng Linton MD [address] [place] [address] PCP - General Internal Medicine 11/27/22 Kvng Linton MD [address] [place] [address] PCP - Rashid GALVEZ 07/22/23 Career Development Coordinator/Teacher Relationship Specialty Start Date End Date Kvng Linton MD [address] [place] [address] PCP - General Internal Medicine 11/27/22 Kvng Linton MD [address] [place] [address] PCP - Rashid GALVEZ 07/22/23 Career Development Coordinator/Teacher Relationship Specialty Start Date End Date Kvng Linton MD [address] [place] [address] PCP - General Internal Medicine 11/27/22 Kvng Linton MD [address] [place] [address] PCP - Rashid GALVEZ 07/22/23Saturday, MELISSA Boles [address] [place] [address] Licensed Practical Nurse Family Medicine 02/26/24 Career Development Coordinator/Teacher Relationship Specialty Start Date End Date Kvng Linton MD [address] [place] [address] PCP - General Internal Medicine 11/27/22 Kvng Linton MD [address] [place] [address] PCP - Rashid GALVEZ 07/22/23Saturday, Elvi, WAREHOUSE SELECTOR [address] [place] [address] Licensed Practical Nurse Family Medicine 02/26/24 Career Development Coordinator/Teacher Relationship Specialty Start Date End Date Kvng Linton MD [address] [place] [address] PCP - General Internal Medicine 11/27/22 Kvng Linton MD [address] [place] [address] PCP - Rashid GALVEZ 07/22/23Saturday, Elvi, WAREHOUSE SELECTOR [address] [place] [address] Licensed Practical Nurse Family Medicine 02/26/24 Career Development Coordinator/Teacher Relationship Specialty Start Date End Date Kvng Linton MD [address] [place] [address] PCP - General Internal Medicine 11/27/22 Kvng Linton MD [address] [place] [address] PCP Gay Mike MA 07/22/23Saturday, Elvi, WAREHOUSE SELECTOR [address] [place] [address] Licensed Practical Nurse Family Medicine 02/26/24 Career Development Coordinator/Teacher Relationship Specialty Start Date End Date Kvng Linton MD [address] [place] [address] PCP - General Internal Medicine 11/27/22SatRowdyElvi byrd LPN [address] [place] [address] Licensed Practical Nurse Family Medicine 02/26/24 08/28/24 Heydi Parker, RN Licensed Practical Nurse Family Medicine 08/28/24 Career Development Coordinator/Teacher Relationship Specialty Start Date End Date Kvng Linton MD [address] [place] [address] PCP - General Internal Medicine 11/27/22 Heydi Parker, RN Licensed Practical Nurse Family Medicine 08/28/24 Career Development Coordinator/Teacher Relationship Specialty Start Date End Date Kvng Linton MD [address] [place] [address] PCP - General Internal Medicine 11/27/22 Kvng Linton MD [address] [place] [address] PCP - Rashid GALVEZ 07/22/23 Reina Palma LPN 10/06/24 Career Development Coordinator/Teacher Relationship Specialty Start Date End Date Kvng Linton MD [address] [place] [address] PCP - General Internal Medicine 11/27/22 Kvng Linton MD [address] [place] [address] PCP - Rashid GALVEZ 07/22/23 Reina Palma LPN 10/06/24 Career Development Coordinator/Teacher Relationship Specialty Start Date End Date Kvng Linton MD [address] [place] [address] PCP - General Internal Medicine 11/27/22 Kvng Linton MD [address] [place] [address] PCP - Rashid MA 07/22/23 Reina Palma LPN 10/06/24 Career Development Coordinator/Teacher Relationship Specialty Start Date End Date Kvng Linton MD [address] [place] [address] PCP - General Internal Medicine 11/27/22 Kvng Linton MD [address] [place] [address] PCP - Rashid GALVEZ 07/22/23 Reina Palma LPN 10/06/24 Career Development Coordinator/Teacher Relationship Specialty Start Date End Date Kvng Linton MD [address] [place] [address] PCP - General Internal Medicine 11/27/22 Kvng Linton MD [address] [place] [address] PCP - Rashid MA 07/22/23 Reina Palma LPN [address] [place] [address] 10/06/24 Career Development Coordinator/Teacher Relationship Specialty Start Date End Date Kvng Linton MD [address] [place] [address] PCP - General Internal Medicine 11/27/22 Kvng Linton MD [address] [place] [address] PCP - Rashid GALVEZ 07/22/23 Reina Palma LPN [address] [place] [address] 10/06/24 Career Development Coordinator/Teacher Relationship Specialty Start Date End Date Kvng Linton MD [address] [place] [address] PCP - General Internal Medicine 11/27/22 Kvng Linton MD [address] [place] [address] PCP - Rashid GALVEZ 07/22/23 Reina Palma LPN [address] [place] [address] 10/06/24 Career Development Coordinator/Teacher Relationship Specialty Start Date End Date Kvng Linton MD [address] [place] [address] PCP - General Internal Medicine 11/27/22 Kvng Linton MD [address] [place] [address] PCP - Rashid GALVEZ 07/22/23 Reina Palma LPN [address] [place] [address] 10/06/24 Career Development Coordinator/Teacher Relationship Specialty Start Date End Date Kvng Linton MD [address] [place] [address] PCP - General Internal Medicine 11/27/22 Kvng Linton MD [address] [facility] [address] [place] [address] PCP - Rashid GALVEZ 07/22/23 Reina Palma LPN [address] [facility] [address] [place] [address] 10/06/24 Career Development Coordinator/Teacher Relationship Specialty Start Date End Date Kvng Linton MD [address] [facility] [address] [place] [address] PCP - General Internal Medicine 11/27/22 Kvng Linton MD [address] [facility] [address] [place] [address] PCP - Rashid GALVEZ 07/22/23 Reina Palma LPN [address] [facility] [address] [place] [address] 10/06/24 Reason for Visit (unrecogniz ed section [...] BE BASED ON THE PRIMARY CLINICAL RECORDS. [facility]. provides no warranty or guarantee of the accuracy or completeness of information in this document.
== END 2025-03-31 10:58 | disposition home or self-care (01) ==
LOC: WC 10:57
PROVIDERS: PCP Internal Medicine; Visit Provider Physician Assistant
DX: L97.415 Non-pressure chronic ulcer of right heel and midfoot with muscle involvement without evidence of necrosis (principal)
CPT/HCPCS: 11043

== ENCOUNTER 2025-04-07 15:25 | Outpatient (OUT) | payer MEDICARE, SELFPAY ==
--- OUTSIDE RECORDS SUMMARY | 2024-11-27 09:00 | XMS_ITS ---
Author Organization [facility] Serv[facility] es Address [address] [place] [address] Care Team Providers Care Ccie Name Role Phone Araceli Woo Primary Care Provider REASON FOR VISIT FILLING Encounters Encounter Location Date Provider Diagnosis [place] [address] [place] [address] 11/27/2024 Araceli Woo Plan Of Treatment Next Appt Details Provider Name:Lizeth Dimas, 10:40:00 AM, [address], [place], [address], Progress Notes * JESSICA SILVA EDOB: 8 (79 yo F)Acc No.[id number]:11/27/2024 Patient: Nabor JESSICA LUEVANO Provider: Mercedez Woo DDS :1945 A ge:79 Y S ex:Female Date:11/27/2024 Address:[address], [facility] Subjective: * Chief Complaints: * 1 . FILLING. * Medical History: Objective: * Vitals: Assessment: Plan: * Treatment: * Images: * Electronic signature of Consuelo Woo DDS on 04/07/2025 at 03:28 PM EDT Sign off status: Pending * Provider: Mercedez Woo DDS Date: 0 11/27/2024 Generated for Percy lou/Hilaria/Jono on: 0 04/07/2025 03:28 PM EDT
--- OUTSIDE RECORDS SUMMARY | 2024-12-11 10:45 | XMS_ITS ---
Author Organization [facility] Servic es Address [address] [place] [address] Care Team Providers Care Residential Electrician Name Role Phone Araceli Woo Primary Care Provider [phone] Johanna Wheat Unavailable REASON FOR VISIT FILLING Encounters Encounter Location Date Provider Diagnosis [place] [address] [place] [address] 12/11/2024 Johanna Haynes Plan Of Treatment Next Appt Details Provider Name:Lizeth Dimas, 10:40:00 AM, [address], [place], [address], Progress Notes * JESSICA SILVA EDOB: 8 (79 yo F)Acc No.[id number]:12/11/2024 Patient: JESSICA TOLENTINO Provider: Zohra HAYNES DDS :1945 A ge:79 Y S ex:Female Date:12/11/2024 Address:[address] [place] [address] [address], [place], [place] Pcp:Araceli Woo Subjective: * Chief Complaints: * 1 . FILLING. * Medical History: Objective: * Vitals: Assessment: Plan: * Treatment: * Images: * Electronic signature of Caroline Haynes DDS on 04/07/2025 at 03:27 PM EDT Sign off status: Pending * Provider: Zohra HAYNES DDS Date: 0 12/11/2024 Generated for Percy Packer/Jono on: 0 04/07/2025 03:27 PM EDT
--- OUTSIDE RECORDS SUMMARY | 2024-12-24 10:30 | XMS_ITS ---
Author Organization [facility] Servic es Address [address] [place] [address] Care Team Providers Care Filler Blender Name Role Phone Araceli Woo Primary Care Provider REASON FOR VISIT IMPRESSIONS- DR. Hodge Encounters Encounter Location Date Provider Diagnosis [place] [address] [facility] [place] [place] [address] 12/24/2024 Araceli Woo Plan Of Treatment Next Appt Details Provider Name:Lizeth Dimas, 10:40:00 AM, [address], [place], [address], Progress Notes * JESSICA SILVA EDOB: 8 (79 yo F)Acc No.[id number]:12/24/2024 Dental Appointment Patient: JESSICA TOLENTINO Provider: Mercedez Woo DDS :1945 A ge:79 Y S ex:Female Date:12/24/2024 Address:[address] [place] [address] 1 , [place], [place] Subjective: * Chief Complaints: * 1 . IMPRESSIONS- DR. Strong * Medical History: Objective: * Vitals: Assessment: Plan: * Treatment: * Images: * Electronic signature of Consuelo Woo DDS on 04/07/2025 at 03:28 PM EDT Sign off status: Pending * Provider: Mercedez Woo DDS Date: 0 12/24/2024 Generated for Percy lou/Eddie on: 0 04/07/2025 03:28 PM EDT
--- OUTSIDE RECORDS SUMMARY | 2025-04-02 09:00 | XMS_ITS ---
Author Organization [facility] Serv[facility] es Address [address] [place] [address] Care Team Providers Care Custodian Name Role Phone Araceli Woo Primary Care Provider [phone] REASON FOR VISIT FILLING Encounters Encounter Location Date Provider Diagnosis [place] [address] [place] [address] 04/02/2025 Araceli Woo Plan Of Treatment Next Appt Details Provider Name:Lizeth Dimas, 10:40:00 AM, [address] [place], [address], Progress Notes * JESSICA SILVA EDOB: 8 (79 yo F)Acc No.[id number]:04/02/2025 Patient: Nabor JESSICA LUEVANO Provider: Mercedez Woo DDS :1945 A ge:79 Y S ex:Female Date:04/02/2025 Address:[address], [facility] Subjective: * Chief Complaints: * 1 . FILLING. * Medical History: Objective: * Vitals: Assessment: Plan: * Treatment: * Images: * Electronic signature of Consuelo Woo DDS on 04/07/2025 at 03:28 PM EDT Sign off status: Pending * Provider: Mercedez Woo DDS Date: 0 04/02/2025 Generated for Percy lou/Hilaria/Jono on: 0 04/07/2025 03:28 PM EDT
--- OUTSIDE RECORDS SUMMARY | 2025-04-07 15:27 | XMS_ITS | Encounter Summary ---
Author Organization [facility] Address [address] [place] [address] Care Team Providers Care Mail Handlers Supervisor Name Role Phone Kvng Linton MD Primary Care Provider [phone] Kvng Linton MD Unavailable [phone] Saturday, Elvi MANNEQUIN MOUNTER Unavailable [phone] Heydi Parker RN Unavailable [phone] Reina Palma MANNEQUIN MOUNTER Unavailable Encounter Details Date Type Department Care Team (Late st Contact Info) Description 11/28/2023 Abstract [facility] [place] [facility] [address] [facility] 110 [place] [address] Kvng Linton MD 112 [facility] 110 [place] [address] Social History Tobacco Use Types [...] declined 10/30/2023 How often do you attend lutheran or sikh serv ices? Patient declined 10/30/2023 Do you belong to any clubs o r organizations such as lutheran groups, unions, fraternal or athletic groups, or [...] in a jail (including now)? No 10/30/2023 Comments Unknown Sex and Gender Information Value Date Recorded Sex Assigned at Not on file Legal Sex Female 7:12 PM EDT Gender Identity Not on file Sexual Orientation Not on file documented as of this encounter Plan of Treatment Not on file documented as of this encounter Visit Diagnoses Not on filedocumented in this encounter Care Teams Mail Handlers Supervisor Relationship Specialty Start Date End Date Kvng Linton MD [address] [place] [address] PCP - General Internal Medicine 11/27/22 Kvng Linton MD [address] [place] [address] PCP - Rashid GALVEZ 07/22/23SaturdayElvi LPN [address] [place] [address] Licensed Practical Nurse Family Medicine 02/26/24 08/28/24 Heydi Parker, FAUSTO [address] [place] [address] Licensed Practical Nurse Family Medicine 08/28/24 10/06/24 Reina Palma LPN [address] [place] [address] 10/06/24 documented as of this encounter
--- OUTSIDE RECORDS SUMMARY | 2025-04-07 15:27 | XMS_ITS | Clinical Summary ---
Author Organization [facility] tem Address [id number] [address] [place] [address] Care Team Providers Care Wind Tunnel Engineer Name Role Phone Kvng Linton MD Primary Care Provider [phone] Allergies Active Allergy Reactions Criticality Noted Date [...] (2 - Td or Tdap) 01/20/2022 01/21/2012 Tobacco Screening 03/13/2025 03/13/2024 COVID-19 Vaccine (4 - 2024-2 6 season) 2025 08/09/2021, 10/07/2020, 09/16/2020 Influenza Vaccine 03/22/2025 07/05/2022, , 04/12/2020, Additional history exists Medical Devices Implanted Type Area Meat Loiner Device Identifier Shelf Expiration Date Model / Serial / Lot Orthopedic Implant Orthopedic Implant Right: Foot Insurance [employer] MEDICARE Care Teams Wind Tunnel Engineer Relationship Specialty Start Date End Date Kvng Linton MD [address] [address] PCP - General Internal Medicine 11/30/20
--- OUTSIDE RECORDS SUMMARY | 2025-04-07 15:27 | XMS_ITS | Encounter Summary ---
Author Organization [facility] Address [address] [place] [address] Care Team Providers Care Gemologist Name Role Phone Kvng Linton MD Primary Care Provider Kvng Linton MD Unavailable [phone] Saturday, Elvi SQL SSIS DEVELOPER Unavailable [phone] Heydi Parker RN Unavailable [phone] PalmaTezReina SQL SSIS DEVELOPER Unavailable Encounter Details Date Type Department Care Team (Late st Contact Info) Description 08/26/2023 Abstract [facility] [place] [facility] [address] [facility] 110 [place] [address] Kvng Linton MD 112 [facility] 110 [place] [address] Social History Tobacco Use Types [...] on filedocumented in this encounter Care Teams Gemologist Relationship Specialty Start Date End Date Kvng Linton MD [address] [place] [address] PCP - General Internal Medicine 11/27/22 Kvng Linton MD [address] [place] [address] PCP - Rashid GALVEZ 07/22/23SaturdayElvi LPN [address] [place] [address] Licensed Practical Nurse Family Medicine 02/26/24 08/28/24 Heydi Parker, RN [address] [place] [address] Licensed Practical Nurse Family Medicine 08/28/24 10/06/24 Reina Palma LPN [address] [facility] 110 [place] [address] 10/06/24 documented as of this encounter
--- OUTSIDE RECORDS SUMMARY | 2025-04-07 15:27 | XMS_ITS | Encounter Summary ---
Author Organization [facility] Address [address] [place] [address] Care Team Providers Care Quantity Surveyor Name Role Phone Kvng Linton MD Primary Care Provider [phone] Kvng Linton MD Unavailable [phone] Saturday, Elvi CLIPPER COUNTERS Unavailable [phone] Heydi Parker RN Unavailable Reina Palma CLIPPER COUNTERS Unavailable Encounter Details Date Type Department Care Team (Late st Contact Info) Description 08/26/2023 Orders Only [facility] [place] [facility] [address] [facility] 110 [place] [address] A, Unknown Practice [address] [place], [place] [address] Social History Tobacco Use Types Packs/Day Years [...] on filedocumented in this encounter Care Teams Quantity Surveyor Relationship Specialty Start Date End Date Kvng Linton MD [address] [place] [address] PCP - General Internal Medicine 11/27/22 Kvng Linton MD [address] [place] [address] PCP - Rashid GALVEZ 07/22/23SaturdayElvi LPN [address] [place] [address] Licensed Practical Nurse Family Medicine 02/26/24 08/28/24 Heydi Parker, RN [address] [place] [address] Licensed Practical Nurse Family Medicine 08/28/24 10/06/24 Reina Palma LPN [address] [place] [address] 10/06/24 documented as of this encounter
--- OUTSIDE RECORDS SUMMARY | 2025-04-07 15:27 | XMS_ITS | Encounter Summary ---
Author Organization [facility] Address [address] [place] [address] Care Team Providers Care Call Center Consultant Name Role Phone Kvng Linton MD Primary Care Provider Kvng Linton MD Unavailable Saturday, Elvi WIRE MILL ROVER Unavailable [phone] Heydi Parker RN Unavailable Reina Palma WIRE MILL ROVER Unavailable Encounter Details Date Type Department Care Team (Late st Contact Info) Description 12/19/[address] [place] [facility] [address] [facility] 110 [place] [address] Kvng Linton MD 112 [facility] 110 [place] [address] Social History Tobacco Use Types [...] How often do you attend uatsdin or buddhism serv ices? Patient declined 10/30/2023 [...] and heating? Not hard at all 10/30/2023 [facility] Occupat ional Health - Occupational Stress [...] place to sleep or slept in a fdc (including now)? No 10/30/2023 Comments Unknown Sex and Gender Information Value Date Recorded Sex Assigned at Not on file Legal Sex Female 7:12 PM EDT Gender Identity Not on file Sexual Orientation Not on file documented as of this encounter Plan of Treatment Not on file documented as of this encounter Visit Diagnoses Not on filedocumented in this encounter Care Teams Call Center Consultant Relationship Specialty Start Date End Date Kvng Linton MD [address] [place] [address] PCP - General Internal Medicine 11/27/22 Kvng Linton MD [address] [place] [address] PCP - Rashid GALVEZ 07/22/23SaturdayElvi LPN [address] [place] [address] Licensed Practical Nurse Family Medicine 02/26/24 08/28/24 Heydi Parker, FAUSTO [address] [place] [address] Licensed Practical Nurse Family Medicine 08/28/24 10/06/24 Reina Palma LPN [address] [place] [address] 10/06/24 documented as of this encounter
--- OUTSIDE RECORDS SUMMARY | 2025-04-07 15:27 | XMS_ITS | Encounter Summary ---
Author Organization [facility] Address [address] [place] [address] Care Team Providers Care Offset Second Press Operator Name Role Phone Kvng Linton MD Primary Care Provider Kvng Linton MD Unavailable [phone] Saturday, Elvi FIREWORKS INSPECTOR Unavailable [phone] Heydi Parker RN Unavailable Reian Palma FIREWORKS INSPECTOR Unavailable Encounter Details Date Type Department Care Team (Late st Contact Info) Description 03/14/2023 Abstract [facility] [place] [facility] [address] [facility] 110 [place] [address] Katie Rosas, PIG MACHINE SUPERVISOR [address] [facility] 110 [place], [place] [id number] Social History Tobacco Use Types Packs/Day Years [...] on filedocumented in this encounter Care Teams Offset Second Press Operator Relationship Specialty Start Date End Date Kvng Linton MD [address] [place] [address] PCP - General Internal Medicine 11/27/22 Kvng Linton MD [address] [place] [address] PCP - Rashid GALVEZ 07/22/23Saturday, MELISSA Boles [address] [place] [address] Licensed Practical Nurse Family Medicine 02/26/24 08/28/24 Heydi Parker, RN [address] [place] [address] Licensed Practical Nurse Family Medicine 08/28/24 10/06/24 Reina Palma LPN [address] [facility] 110 [place] [address] 10/06/24 documented as of this encounter
--- OUTSIDE RECORDS SUMMARY | 2025-04-07 15:27 | XMS_ITS | Encounter Summary ---
Author Organization [facility] Address [address] [place] [address] Care Team Providers Care Roller Bearing Inspector Name Role Phone Kvng Linton MD Primary Care Provider [phone] Kvng Linton MD Unavailable [phone] Saturday, Elvi CORE CHECKER Unavailable [phone] Heydi Parker RN Unavailable Reina Palma CORE CHECKER Unavailable Encounter Details Date Type Department Care Team (Late st Contact Info) Description 04/11/2023 Orders Only [facility] [place] [facility] [address] [place] [address] Kvng Linton MD [address] [facility] 110 [place], [place] [address] Social History Tobacco Use Types Packs/Day Years [...] on filedocumented in this encounter Care Teams Roller Bearing Inspector Relationship Specialty Start Date End Date Kvng Linton MD [address] [place] [address] PCP - General Internal Medicine 11/27/22 Kvng Linton MD [address] [place] [address] PCP - Rashid GALVEZ 07/22/23SaturdayElvi LPN [address] [place] [address] Licensed Practical Nurse Family Medicine 02/26/24 08/28/24 Heydi Parker, FAUSTO [address] [place] [address] Licensed Practical Nurse Family Medicine 08/28/24 10/06/24 Reina Palma LPN [address] [facility] 110 [place] [address] 10/06/24 documented as of this encounter
--- OUTSIDE RECORDS SUMMARY | 2025-04-07 15:27 | XMS_ITS | Encounter Summary ---
Author Organization [facility] Address [address] [place] [address] Care Team Providers Care International Marketing Specialist Name Role Phone Kvng Linton MD Primary Care Provider Kvng Linton MD Unavailable [phone] Saturday, Elvi SKATES OPERATOR Unavailable [phone] Heydi Parker RN Unavailable PalmaTezReina SKATES OPERATOR Unavailable Encounter Details Date Type Department Care Team (Late st Contact Info) Description 08/26/2023 Abstract [facility] [place] [facility] [address] [facility] 110 [place] [address] Kvng Linton MD 112 [facility] 110 [place] [address] Social History Tobacco Use Types [...] on filedocumented in this encounter Care Teams International Marketing Specialist Relationship Specialty Start Date End Date Kvng Linton MD [address] [place] [address] PCP - General Internal Medicine 11/27/22 Kvng Linton MD [address] [place] [address] PCP - Rashid GALVEZ 07/22/23SaturdayElvi LPN [address] [place] [address] Licensed Practical Nurse Family Medicine 02/26/24 08/28/24 Heydi Parker, RN [address] [place] [address] Licensed Practical Nurse Family Medicine 08/28/24 10/06/24 Reina Palma LPN [address] [facility] 110 [place] [address] 10/06/24 documented as of this encounter
--- OUTSIDE RECORDS SUMMARY | 2025-04-07 15:27 | XMS_ITS | Encounter Summary ---
Author Organization [facility] Address [address] [place] [address] Care Team Providers Care Final Assembler Boat Name Role Phone Kvng Linton MD Primary Care Provider Kvng Linton MD Unavailable [phone] Saturday, Elvi MOSHGIACH Unavailable [phone] Heydi Parker RN Unavailable PalmaReina MOSHGIACH Unavailable Encounter Details Date Type Department Care Team (Late st Contact Info) Description 04/10/2023 Clinisync Result Encounter [facility] External Department Unsolicited Kvng Linton MD [address] [facility] 110 [place] [id number] Social History Tobacco Use Types Packs/Day Years [...] EDT Narrative 04/10/2023 2:57 [place] [address] Mammography Report Signed Patient: BERENICE DISLA MR#: [id number] : 1945 Acct:[id number] Age/Sex: 77 / F ADM Date: 04/09/23 Loc: MAMMO Attending Dr: KVNG LINTON Ordering Physician: KVNG LINTON Results: Date of Service: 04/09/23 Follow Up: Procedure(s): MM tomosynthesis screening BI Accession Number(s): [id number] cc: KVNG LINTON Patient: BERENICE DISLA Exam Date: 04/09/2023 : 1945 Gender:F Ordering : DR KVNG LINTON M.D. Admission #: [id number] Family : Order #: [id number] CLICK HERE TO VIEW EXAM RADIOLOGY REPORT [...] ovarian cancer at age 52. LOCATION: [facility] BREAST COMPOSITION: Scattered areas fibroglandular density. FINDINGS: [...] Signed By: 04/10/23 1458 DD/ 1457 TD/TT: Car Audio Installer: Procedure Note Radiology, Radiologist, MD - 04/12/2023 [place] [address] Mammography Report Signed Patient: BERENICE DISLA EMR#: [id number] : 1945cct:[id number] Age/Sex: 77 / FADM Date: 04/09/23 Loc: MAMMO Attending Dr: KVNG LINTON Ordering Physician: KVNG LINTONResults: Date of Service: 04/09/23Follow Up: Procedure(s): MM tomosynthesis screening BI Accession Number(s): [id number] cc: KVNG LINTON Patient: BERENICE DISLA Exam Date: 04/09/2023 : 1945 Gender:F Ordering : DR KVNG LINTON M.D. Admission #: [id number] Family : Order #: [id number] CLICK HERE TO VIEW EXAM RADIOLOGY REPORT [...] ovarian cancer at age 52. LOCATION: [facility] BREAST COMPOSITION: Scattered areas fibroglandular density. FINDINGS: [...] Levin M.D. Signed By:04/10/238 DD/ 56 TD/TT: Car Audio Installer: Kvng Linton MD [facility] Final Result documented in this encounter Visit Diagnoses Not on filedocumented in this encounter Care Teams Final Assembler Boat Relationship Specialty Start Date End Date Kvng Linton MD [address] [place] [address] PCP - General Internal Medicine 11/27/22 Kvng Linton MD [address] [place] [address] PCP - Rashid GALVEZ 07/22/23SaturdayElvi LPN [address] [place] [address] Licensed Practical Nurse Family Medicine 02/26/24 08/28/24 Heydi Parker, RN [address] [place] [address] Licensed Practical Nurse Family Medicine 08/28/24 10/06/24 Reina Palma LPN [address] [place] [address] 10/06/24 documented as of this encounter
--- OUTSIDE RECORDS SUMMARY | 2025-04-07 15:27 | XMS_ITS | Encounter Summary ---
Author Organization [facility] Address [address] [place] [address] Care Team Providers Care Curtain Inspector Name Role Phone Kvng Linton MD Primary Care Provider Kvng Linton MD Unavailable Saturday, Elvi FACULTY RESEARCH PHYSICIAN Unavailable [phone] Heydi Parker RN Unavailable [phone] Reina Palma FACULTY RESEARCH PHYSICIAN Unavailable Encounter Details Date Type Department Care Team (Late st Contact Info) Description 12/19/2023 Abstract [facility] [place] [facility] [address] [facility] 110 [place] [address] Kvng Linton MD 112 [facility] 110 [place] [address] Social History Tobacco Use Types [...] declined 10/30/2023 How often do you attend jewish or rastafari serv ices? Patient declined 10/30/2023 Do you belong to any clubs o r organizations such as jewish groups, unions, fraternal or athletic groups, or [...] and heating? Not hard at all 10/30/2023 [facility] of Occupat ional Health - Occupational [...] on filedocumented in this encounter Care Teams Curtain Inspector Relationship Specialty Start Date End Date Kvng Linton MD [address] [place] [address] PCP - General Internal Medicine 11/27/22 Kvng Linton MD [address] [place] [address] PCP - Rashid GALVEZ 07/22/23SaturdayElvi LPN [address] [place] [address] Licensed Practical Nurse Family Medicine 02/26/24 08/28/24 Heydi Parker, FAUSTO [address] [place] [address] Licensed Practical Nurse Family Medicine 08/28/24 10/06/24 Reina Palma LPN [address] [place] [address] 10/06/24 documented as of this encounter
--- OUTSIDE RECORDS SUMMARY | 2025-04-07 15:27 | XMS_ITS | Encounter Summary ---
Author Organization [facility] tem Address [id number] [address] [place] [address] Care Team Providers Care Veterinary Milk Specialist Name Role Phone Kvng Linton MD Primary Care Provider [phone] Encounter Details Date Type Department Care Team (Late st Contact Info) Description 11/30/2020 Orders Only [facility] [address] [place] [address] Kvng Linton MD 112 [facility] 110 [place] [address] Social History Tobacco Use Types [...] on filedocumented in this encounter Care Teams Veterinary Milk Specialist Relationship Specialty Start Date End Date Kvng Linton MD 112 [facility] 110 [place] [address] PCP - General Internal Medicine 11/30/20 documented as of this encounter
--- OUTSIDE RECORDS SUMMARY | 2025-04-07 15:27 | XMS_ITS | Encounter Summary ---
Author Organization [facility] Address [address] [place] [address] Care Team Providers Care Transfusion Aide Name Role Phone Kvng Linton MD Primary Care Provider Kvng Linton MD Unavailable [phone] Saturday, Elvi CELL GENETICIST Unavailable [phone] Heydi Parker RN Unavailable Reina Palma CELL GENETICIST Unavailable Encounter Details Date Type Department Care Team (Late st Contact Info) Description 02/12/2024 Abstract [facility] [place] [facility] [address] [facility] 110 [place] [address] Kvng Linton MD 112 [facility] 110 [place] [address] Social History Tobacco Use Types [...] declined 10/30/2023 How often do you attend judaism or caodaism serv ices? Patient declined 10/30/2023 Do you belong to any clubs o r organizations such as judaism groups, unions, fraternal or athletic groups, or [...] Recorded Patient Health Questionnaire-2 Score 0 02/06/2024 [facility] of Occupat ional [facility] - Occupational Stress Questionnaire Answer Date [...] in a half-way (including now)? No 10/30/2023 Comments Unknown Sex [...] documented as of this encounter Care Teams Transfusion Aide Relationship Specialty Start Date End Date Kvng Linton MD [address] [place] [address] PCP - General Internal Medicine 11/27/22 Kvng Linton MD [address] [place] [address] PCP - Rashid GALVEZ 07/22/23SaturdayElvi LPN [address] [place] [address] Licensed Practical Nurse Family Medicine 02/26/24 08/28/24 Heydi Parker RN [address] [place] [address] Licensed Practical Nurse Family Medicine 08/28/24 10/06/24 Reina Plama LPN [address] [place] [address] 10/06/24 documented as of this encounter
--- OUTSIDE RECORDS SUMMARY | 2025-04-07 15:28 | XMS_ITS | Patient Health Record ---
Author Organization [facility] [place] Address [address] [place] [address] Care Team Providers Care Private Duty Lpn Name Role Phone Yanira DELONG, Hayde Primary [...] Status W/U Status Risk Notes Problem Anxiety (10081243) Anxiety (F41.9) Active confi rmed Problem Peripheral neuropath y (429971724) Peripheral neuropathy (G62.9) Active confirmed Problem Transient ischemic attack (738622359) TIA (transient ischemic attack) (G45.9) Active confirmed Problem Restless legs (46139556) RLS (restless legs syndrome) (G25.81) Active confirmed Problem Edema (448435760) Edema extremit ies (R60.0) Active confirmed Problem Hyperlipoproteinemia (1749826) 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) Active confirmed Problem Acute osteomyelitis of ankle and/or foot (344357805) Osteomyelitis of ankle or foot, right, acute (M86.171) Active confirmed Problem Essential hypertension (48124232) BP (high blood pressure) (I10) Active confirmed Problem 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 (L97.512) Active confirmed Problem 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 of necrosis (L97.415) Active confirmed Problem Atrophy of nail (479951346) Atrophy of nail (L60.3) Active confirmed Problem Chronic 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 layer exposed (L97.412) Active confirmed Problem Chronic ulcer of right foot (disorder) (13778953875583649) 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
--- OUTSIDE RECORDS SUMMARY | 2025-04-07 15:28 | XMS_ITS | Encounter Summary ---
Author Organization [facility] Address [address] [place] [address] Care Team Providers Care Cubing Machine Tender Name Role Phone Kvng Linton MD Primary Care Provider Kvng Linton MD Unavailable [phone] Saturday, Elvi VOCATIONAL TECHNICAL EDUCATION TEACHER Unavailable [phone] Heydi Parker RN Unavailable [phone] Reina Palma VOCATIONAL TECHNICAL EDUCATION TEACHER Unavailable Encounter Details Date Type Department Care Team (Late st Contact Info) Description 02/17/2024 Abstract [facility] [place] [facility] [address] [facility] 110 [place] [address] Kvng Linton MD 112 [facility] 110 [place] [address] Social History Tobacco Use Types [...] declined 10/30/2023 How often do you attend hoahaoism or nondenominational serv ices? Patient declined 10/30/2023 Do you belong to any clubs o r organizations such as hoahaoism groups, unions, fraternal or athletic groups, or [...] Recorded Patient Health Questionnaire-2 Score 0 02/06/2024 [facility] of Occupat ional [facility] - Occupational Stress Questionnaire Answer [...] in a correction (including now)? No 10/30/2023 Comments Unknown Sex [...] documented as of this encounter Care Teams Cubing Machine Tender Relationship Specialty Start Date End Date Kvng Linton MD [address] [place] [address] PCP - General Internal Medicine 11/27/22 Kvng Linton MD [address] [place] [address] PCP - Rashid GALVEZ 07/22/23SaturdayElvi LPN [address] [place] [address] Licensed Practical Nurse Family Medicine 02/26/24 08/28/24 Heydi Parker RN [address] [place] [address] Licensed Practical Nurse Family Medicine 08/28/24 10/06/24 Reina Palma LPN [address] [place] [address] 10/06/24 documented as of this encounter
--- OUTSIDE RECORDS SUMMARY | 2025-04-07 15:28 | XMS_ITS | Encounter Summary ---
Author Organization [facility] Address [address] [place] [address] Care Team Providers Care Bulk Pallet Builder Name Role Phone Kvng Linton MD Primary Care Provider Kvng Linton MD Unavailable [phone] Saturday, Elvi DATA ENTRY OPERATOR Unavailable [phone] Heydi Parker RN Unavailable Reina Palma DATA ENTRY OPERATOR Unavailable Encounter Details Date Type Department Care Team (Late st Contact Info) Description 03/02/2024 Abstract [facility] [place] [facility] [address] [facility] 110 [place] [address] Kvng Linton MD 112 [facility] 110 [place] [address] Social History Tobacco Use Types [...] and Family Not on file 03/05/2024 Attends [employer] [facility] Not on file 03/05 Active Member [...] Recorded Patient Health Questionnaire-2 Score 0 02/06/2024 [facility] of Occupat ional [facility] - Occupational Stress Questionnaire Answer [...] place to sleep or slept in a fci (including now)? No 10/30/2023 Housing Stability Vital Sign Answer Kody e Recorded In the last 12 months, was t here a time when you were not able to pay the mortgage or rent on time? No 03/05/2024 In the past 12 months, how m any times have you moved where you were living? 0 03/05/2024 At any time in the past 12 m [facility], were you homeless or living in a fci (including now)? No 03/05/2024 Comments Unknown Sex [...] documented as of this encounter Care Teams Bulk Pallet Builder Relationship Specialty Start Date End Date Kvng Linton MD [address] [facility] 110 [place] [address] PCP - General Internal Medicine 11/27/22 Kvng Linton MD [address] [facility] 110 [place] [address] PCP - Rashid GALVEZ 07/22/23SaturdayElvi LPN [address] [facility] 110 [place] [address] Licensed Practical Nurse Family Medicine 02/26/24 08/28/24 Heydi Parker, FAUSTO [address] [place] [address] Licensed Practical Nurse Family Medicine 08/28/24 10/06/24 Reina Palma LPN [address] [facility] 110 [place] [address] 10/06/24 documented as of this encounter
--- OUTSIDE RECORDS SUMMARY | 2025-04-07 15:28 | XMS_ITS | Encounter Summary ---
Author Organization [facility] Address [address] [place] [address] Care Team Providers Care Geology Professor Name Role Phone Kvng Linton MD Primary Care Provider Kvng Linton MD Unavailable [phone] Saturday, Elvi CONTROL PANEL OPERATOR CRUDE UNIT Unavailable [phone] Heydi Parker RN Unavailable [phone] Reina Palma CONTROL PANEL OPERATOR CRUDE UNIT Unavailable Encounter Details Date Type Department Care Team (Late st Contact Info) Description 02/26/2024 Clinisync Result Encounter [facility] External Department Unsolicited Nicky Riddle, PA [address] [facility] [address] [place] [address] Social History Tobacco Use Types Packs/Day Years [...] How often do you attend catholic or mosque serv ices? Patient declined 10/30/2023 Do you [...] Recorded Patient Health Questionnaire-2 Score 0 02/06/2024 [facility] of Occupat ional Health - [...] in a snf (including now)? No 10/30/2023 Comments Unknown Sex [...] AM EDT Narrative 02/26/2024 11:39 AM EDT [place] [id number] XRay Report Signed Patient: BERENICE DISLA MR#: [id number] : 1945 Acct:[id number] Age/Sex: 78 / F ADM Date: 02/26/24 Loc: RAD Attending Dr: NICKY RIDDLE Ordering Physician: NICKY RIDDLE Date of Service: 02/26/24 Procedure(s): XR DEXA axial skeleton Accession Number(s): [id number] cc: KVNG LINTON ; NICKY RIDDLE [address] [address] Patient Name: BERENICE DISLA MRN: [id number] date: 1945 Sex: F Assigned Patient Location: RAD Current Patient Location: RAD Accession/Order Number: [id number] Exam Date: 02/26/2024 11:05 Report Date: 02/26/2024 11:36 At the request of: NICKY RIDLDE Procedure: XR DEXA axial skeleton EXAMINATION: XR [...] prevention and treatment of osteoporosis. Osteoporos Int. 2021;3310):4505-1737. doi: 10.1007/a35045-858-46199-m. Epub 2021Nov 16. Erratum in: Osteoporos Int. 2021Feb 15;: PMID: [id number]; PMCID: [id number]. Electronically authenticated by: TARIQ LEVIN Date: 02/26/2024 11:36 Dictated By: Tariq Levin M.D. Signed By: 02/26/24 1139 DD/ 1136 TD/TT: Rider Ticket Worker: Procedure Note Radiology, Radiologist, MD - 02/26/2024 [place] [address] XRay Report Signed Patient: BERENICE DISLA EMR#: [id number] : 1945cct:[id number] Age/Sex: 78 / FADM Date: 02/26/24 Loc: RAD Attending Dr: NICKY RIDDLE Ordering Physician: NICKY RIDDLE Date of Service: 02/26/24 Procedure(s): XR DEXA axial skeleton Accession Number(s): [id number] cc: KVNG LINTON ; NICKY RIDDLE [place] [address] Patient Name: BERENICE DISLA MRN: [facility]:[id number] date: 1945 Sex: F Assigned Patient Location: [facility] Current Patient Location: [facility] Accession/Order Number: [id number] Exam Date: 02/26/2024 11:05 Report Date: 02/26/2024 [...] 10-year hip fracture risk >= 3% or i89-szye major osteoporosis-related fracture risk >= 20% (i.e., [...] to prevention and treatment of osteoporosis.Osteoporos Int. 2021;33(10):7227-0278. doi: 10.1007/c34361-325-66295-m. Epub . Erratum in: Osteoporos Int. 2021Feb 15;: PMID: [id number]; PMCID: [id number]. Electronically authenticated by: TARIQ LEVIN Date: 02/26/2024 11:36 Dictated By: Tariq Levin M.D. Signed By:02/26/24 1139 DD/ 1136 TD/TT: Rider Ticket Worker: us Nicky [facility] Final Result documented in this encounter Visit Diagnoses Not on filedocumented in this encounter Additional Health Concerns Assessment Noted Time PHQ-9 Depression Total Score: 1 02/06/20 24 10:00 AM EDT documented as of this encounter Care Teams Geology Professor Relationship Specialty Start Date End Date Kvng Linton MD [address] [place] [place] [address] PCP - General Internal Medicine 11/27/22 Kvng Linton MD [address] [place] [address] PCP - Rashid GALVEZ 07/22/23SaturdayElvi LPN [address] [place] [address] Licensed Practical Nurse Family Medicine 02/26/24 08/28/24 Heydi Parker, FAUSTO [address] [facility] [place] [address] Licensed Practical Nurse Family Medicine 08/28/24 10/06/24 Reina Palma LPN [address] [place] [place] [address] 10/06/24 documented as of this encounter
--- OUTSIDE RECORDS SUMMARY | 2025-04-07 15:28 | XMS_ITS | Encounter Summary ---
Author Organization [facility] Address [address] [place] [address] Care Team Providers Care Rail Operations Controller Name Role Phone Kvng Linton MD Primary Care Provider Kvng Linton MD Unavailable [phone] Saturday, Elvi BRANCH BANKER Unavailable [phone] Heydi Parker RN Unavailable [phone] Reina Palma BRANCH BANKER Unavailable Encounter Details Date Type Department Care Team (Late st Contact Info) Description 03/16/2024 Abstract [facility] [place] [facility] [address] [facility] 110 [place] [address] Kvng Linton MD 112 [facility] 110 [place] [address] Social History Tobacco Use Types [...] and Family Not on file 03/05/2024 Attends Gnosticist Services Not on file 03/05 Active Member [...] Patient Health Questionnaire-2 Score 0 02/06/2024 [facility] of Occupat ional [facility] - Occupational Stress Questionnaire Answer Date Recorded [...] time in the past 12 m [facility], were you homeless or living in a [...] documented as of this encounter Care Teams Rail Operations Controller Relationship Specialty Start Date End Date Kvng Linton MD [address] [place] [address] PCP - General Internal Medicine 11/27/22 Kvng Linton MD [address] [place] [place] [address] PCP - Rashid GALVEZ 07/22/23Saturday, MELISSA Boles [address] [place] [address] Licensed Practical Nurse Family Medicine 02/26/24 08/28/24 Heydi Parker, RN [address] [place] [address] Licensed Practical Nurse Family Medicine 08/28/24 10/06/24 Reina Palma LPN 112 [facility] 110 [place] [address] 10/06/24 documented as of this encounter
--- OUTSIDE RECORDS SUMMARY | 2025-04-07 15:28 | XMS_ITS | Encounter Summary ---
Author Organization [facility] Address [address] [place] [address] Care Team Providers Care Hospital Nurse Name Role Phone Kvng Linton MD Primary Care Provider Kvng Linton MD Unavailable [phone] Saturday, Elvi RETURNING OFFICER Unavailable [phone] Heydi Parker RN Unavailable Palma Reina RETURNING OFFICER Unavailable Encounter Details Date Type Department Care Team (Late st Contact Info) Description 02/26/2024 [facility] [address] [place] [address] [place] [address] Unallocated, Noms Lauri, [address] [place], [place] [id number] Social History Tobacco Use Types Packs/Day Years [...] declined 10/30/2023 How often do you attend voodoo or jain serv ices? Patient declined 10/30/2023 Do you belong to any clubs o r organizations such as voodoo groups, unions, fraternal or athletic groups, or [...] Recorded Patient Health Questionnaire-2 Score 0 02/06/2024 [facility] of Occupat ional Health - Occupational Stress [...] documented as of this encounter Care Teams Hospital Nurse Relationship Specialty Start Date End Date Kvng Linton MD [address] [facility] 110 [place] [address] PCP - General Internal Medicine 11/27/22 Kvng Linton MD [address] [facility] 110 [place] [address] PCP - Rashid GALVEZ 07/22/23SaturdayElvi LPN 112 [facility] 110 [place] [address] Licensed Practical Nurse Family Medicine 02/26/24 08/28/24 Heydi Parker, FAUSTO [address] [place] [address] Licensed Practical Nurse Family Medicine 08/28/24 10/06/24 Reina Palma LPN 112 [facility] 110 [place] [address] 10/06/24 documented as of this encounter
--- OUTSIDE RECORDS SUMMARY | 2025-04-07 15:28 | XMS_ITS | Encounter Summary ---
Author Organization [facility] Address [address] [place] [address] Care Team Providers Care Lead Solutions Architect Name Role Phone Kvng Linton MD Primary Care Provider Kvng Linton MD Unavailable [phone] Saturday, Elvi SOIL CONSERVATION TECHNICIAN Unavailable [phone] Heydi Parekr RN Unavailable [phone] Reina Palma SOIL CONSERVATION TECHNICIAN Unavailable Encounter Details Date Type Department Care Team (Late st Contact Info) Description 08/26/2024 Abstract [facility] [place] [facility] [address] [facility] 110 [place] [address] Kvng Linton MD 112 [facility] 110 [place] [address] Social History Tobacco Use Types [...] and Family Not on file 03/05/2024 Attends Restoration Services Not on file 03/05 Active Member [...] [facility] of Occup[facility] ional [facility] - Occupational Stress Questionnaire [...] place to sleep or slept in a long term (including now)? No 10/30/2023 Housing Stability Vital [...] in the past 12 m [facility], were you homeless or living in a long term (including now)? No 03/05/2024 Comments Unknown Sex [...] as of this encounter Care Teams Lead Solutions Architect Relationship Specialty Start Date End Date Kvng Linton MD [address] [place] [address] [place] [address] PCP - General Internal Medicine 11/27/22 Kvng Linton MD [address] [place] [address] PCP - Rashid GALVEZ 07/22/23Saturday, MELISSA Boles [address] [place] [address] Licensed Practical Nurse Family Medicine 02/26/24 08/28/24 Heydi Parker, RN [address] [place] [address] Licensed Practical Nurse Family Medicine 08/28/24 10/06/24 Reina Palma LPN 112 [facility] 110 [place] [address] 10/06/24 documented as of this encounter
--- OUTSIDE RECORDS SUMMARY | 2025-04-07 15:28 | XMS_ITS | Encounter Summary ---
Author Organization [facility] Address [address] [place] [address] Care Team Providers Care Rolling Mill Operator Name Role Phone Kvng Linton MD Primary Care Provider [phone] Kvng Linton MD Unavailable [phone] Reina Palma LPN Unavailable Reason for Visit * Reason Onset Date Comments On-Call 01/09/2025 Encounter Details Date Type Department Care Team (Late st Contact Info) Description 01/09/2025 Telephone [facility] [place] [facility] 112 [facility] 110 [place] [address] Tsering Conte, PHOTOENGRAVING SUPERVISOR 112 [facility] 110 [place] [address] On-Call Social History Tobacco Use [...] and Family Not on file 03/05/2024 Attends Judaism Services Not on file 03/05 Active Member [...] Recorded Patient Health Questionnaire-2 Score 0 11/11/2024 [facility] of Occupat ional Health - [...] in a retirement (including now)? No 10/30/2023 Housing Stability Vital [...] were you homeless or living in a retirement (including now)? No 03/05/2024 Comments Unknown Sex [...] documented as of this encounter Care Teams Rolling Mill Operator Relationship Specialty Start Date End Date Kvng Linton MD [address] [facility] 110 [place] [address] PCP - General Internal Medicine 11/27/22 Kvng Linton MD [address] [facility] 110 [place] [address] PCP - Rashid GALVEZ 07/22/23 Reina Palma LPN [address] [facility] 110 [place] [address] 10/06/24 documented as of this encounter
--- OUTSIDE RECORDS SUMMARY | 2025-04-07 15:28 | XMS_ITS | Encounter Summary ---
Author Organization [facility] Address [address] [place] [address] Care Team Providers Care Mender Knit Goods Name Role Phone Kvng Linton MD Primary Care Provider Kvng Linton MD Unavailable [phone] Saturday, Elvi APPEALS REPRESENTATIVE Unavailable [phone] Heydi Parker RN Unavailable Reina Palma APPEALS REPRESENTATIVE Unavailable Encounter Details Date Type Department Care Team (Late st Contact Info) Description 03/02/2024 Abstract [facility] [place] [facility] [address] [facility] 110 [place] [address] Kvng Linton MD 112 [facility] 110 [place] [address] Social History Tobacco Use Types [...] and Family Not on file 03/05/2024 Attends Jew Services Not on file 03/05 Active Member [...] Recorded Patient Health Questionnaire-2 Score 0 02/06/2024 [facility] of Occupat ional [facility] - Occupational Stress Questionnaire Answer Date [...] in the past 12 m [facility], were you homeless or living in a [...] documented as of this encounter Care Teams Mender Knit Goods Relationship Specialty Start Date End Date Kvng Linton MD [address] [facility] 110 [place] [address] PCP - General Internal Medicine 11/27/22 Kvng Linton MD [address] [facility] 110 [place] [address] PCP - Rashid GALVEZ 07/22/23SaturdayElvi LPN [address] [facility] 110 [place] [address] Licensed Practical Nurse Family Medicine 02/26/24 08/28/24 Heydi Parker, FAUSTO [address] [place] [address] Licensed Practical Nurse Family Medicine 08/28/24 10/06/24 Reina Palma LPN [address] [facility] 110 [place] [address] 10/06/24 documented as of this encounter
--- OUTSIDE RECORDS SUMMARY | 2025-04-07 15:28 | XMS_ITS | Encounter Summary ---
Author Organization [facility] Address [address] [place] [address] Care Team Providers Care Sand Wheeler Name Role Phone Kvng Linton MD Primary Care Provider Kvng Linton MD Unavailable [phone] Saturday, Elvi BRICK SETTER OPERATOR Unavailable [phone] Heydi Parker RN Unavailable [phone] Reina Palma BRICK SETTER OPERATOR Unavailable Encounter Details Date Type Department Care Team (Late st Contact Info) Description 07/30/2024 Abstract [facility] [place] [facility] [address] [facility] 110 [place] [address] Kvng Linton MD 112 [facility] 110 [place] [address] Social History Tobacco Use Types [...] and Family Not on file 03/05/2024 Attends Orthodoxy Services Not on file 03/05 Active Member [...] Recorded Patient Health Questionnaire-2 Score 0 02/06/2024 [facility] of Occupat ional [facility] - Occupational Stress Questionnaire Answer [...] in a custodial (including now)? No 10/30/2023 Housing Stability Vital [...] time in the past [address] [facility], were you homeless or living in a custodial (including now)? No 03/05/2024 Comments Unknown Sex [...] documented as of this encounter Care Teams Sand Wheeler Relationship Specialty Start Date End Date Kvng Linton MD [address] [place] [address] PCP - General Internal Medicine 11/27/22 Kvng Linton MD [address] [place] [place] [address] PCP - Rashid GALVEZ 07/22/23Saturday, MELISSA Boles [address] [place] [address] Licensed Practical Nurse Family Medicine 02/26/24 08/28/24 Heydi Parker, RN [address] [place] [address] Licensed Practical Nurse Family Medicine 08/28/24 10/06/24 Reina Palma LPN 112 [facility] 110 [place] [address] 10/06/24 documented as of this encounter
--- OUTSIDE RECORDS SUMMARY | 2025-04-07 15:28 | XMS_ITS | Clinical Summary ---
Author Organization [facility] Address [address] [place] [address] Care Team Providers Care World Language Teacher Name Role Phone Kvng Linton MD Primary Care Provider [phone] Kvng Linton MD Unavailable [phone] Reina Palma LPN Unavailable Allergies Active [...] 30 day supply 22 g 5 Active Active Problems Problem Noted Date Diagnosed [...] [facility] [address] [place] [address] Katlin Triplett MD Encounter for removal of sutures 03/16/2025 Bamboo flowsheet [facility] [address] [place] [address] Katlin Triplett MD 03/16/2025 Travel 03/08/2025 Patient Outreach [facility] [address] [place] [address] Reina Palma LPN 03/05/2025 Results Follow-Up [facility] [address] [place] [address] Katlin Trilpett MD Dermatopathology exam 03/04/2025 [facility] [place] [address] Reina PalmaMELISSA 03/02/2025 3:15 PM EDT Office Visit [facility] [address] [place] [address] Katlin Triplett MD Epidermal inclusion cyst (Primary Dx); Pain 03/02/2025 Bamboo flowsheet [facility] [address] [place] [address] Katlin Triplett MD 03/02/2025 Travel 02/25/2025 Abstract [facility] [address] [facility] [address] [place] [address] Kvng Linton MD 02/23/2025 10:00 AM EDT [facility] [address] [facility] [address] [place] [address] Nicky Riddle PA Medicare annual wellness visit, [...] Left sided sciatica 02/23/2025 Bamboo flowsheet [facility] [address] [place] [address] [place] [address] Nicky Riddle PA 02/23/2025 Travel 02/01/2025 Patient Outreach [facility] [address] [place] [address] Reina Palma LPN 01/27/2025 Clinisync Result Encounter [facility] External Department Unsolicited Provider, Generic External Data 01/09/2025 Telephone [facility] [address] [place] [address] [place] [address] Tsering Conte, MANAGER GOLF On-Call from Last 3 Months Immunizations Immunization Administration [...] Recorded Patient Health Questionnaire-2 Score 0 02/23/2025 [facility] - [...] any time in the past 12 m [facility], were you homeless or living in [...] * Skin excision (03/02/2025 3:54 PM EDT) Nita Escobedo MA - 03/02/2025 3:54 PM EDT Lesion [...] Description Microscopic examination performed. [facility] CPT 33893*1 [facility] Skin Topography unknown / Unknown [...] PM EDT Narrative 01/27/2025 3:43 PM EDT [address] [address] XRay Report Signed Patient: BERENICE SILVA MR#: [id number] : 1945 Acct:[id number] Age/Sex: 79 / F ADM Date: 01/27/25 Loc: RAD Attending Dr: Anup Perez D.P.M. Ordering Physician: Anup Perez D.P.M. Date of Service: 01/27/25 Procedure(s): XR foot RT min 3V Accession Number(s): [id number] cc: KVNG LINTON ; Anup Perez D.P.M. [facility] [place] [address] Patient Name: BERENICE SILVA MRN: [id number] date: 1945 Sex: F Assigned Patient Location: [facility] [facility] Current Patient Location: Accession/Order Number: [id number] Exam Date: 01/27/2025 15:38 Report Date: 01/27/2025 [...] Fish M.D. 01/27/2025 3:41 PM Dictation Location: [place] [address] Electronically authenticated by: [id number] Y Date: 01/27/2025 15:41 Dictated By: Lew Fish D.O. Signed By: 01/27/25 1543 DD/ 1541 TD/TT: Gun Fitter: Procedure Note Radiology, Radiologist, MD - 01/27/2025 [place] [address] XRay Report Signed Patient: BERENICE SILVA EMR#: [id number] : 8Acct:[id number] Age/Sex: 79 / FADM Date: 01/27/25 Loc: RAD Attending Dr: Anup Perez D.P.M. Ordering Physician: Anup Perez D.P.M. Date of Service: 01/27/25 Procedure(s): XR foot RT min 3V Accession Number(s): [id number] cc: KVNG LINTON ; Anup Perez D.P.M. [facility] [place] [address] Patient Name: BERENICE SILVA MRN: [facility]:[id number] date: 1945 Sex: F Assigned Patient Location: [facility] [facility] Current Patient Location: Accession/Order Number: [id number] Exam Date: 01/27/2025 15:38 Report Date: 01/27/2025 [...] Fish M.D. 01/27/2025 3:41 PM Dictation Location: [place] [address] Electronically authenticated by: [id number] Y Date: 5:41 Dictated By: Lew Fish D.O. Signed By:01/27/25 1543 DD/ 1541 TD/TT: Gun Fitter: us Generic External Data Provider [facility] Final Result * MM TOMOSYNTHESIS SCREENING BI (04/10/2023 2:57 PM EDT) Anatomical Region Laterality Modality Other 04/10/2023 2:57 PM EDT Narrative 04/10/2023 2:57 [place] [address] Mammography Report Signed Patient: BERENICE SILVA MR#: [id number] : 1945 Acct:[id number] Age/Sex: 77 / F ADM Date: 04/09/23 Loc: MAMMO Attending Dr: KVNG LINTON Ordering Physician: KVNG LINTON Results: Date of Service: 04/09/23 Follow Up: Procedure(s): MM tomosynthesis screening BI Accession Number(s): [id number] cc: KVNG LINTON Patient: BERENICE SILVA. Exam Date: 04/09/2023 : 1945 Gender:F Ordering : DR KVNG LINTON M.D. Admission #: [id number] Family : Order #: [id number] CLICK HERE TO VIEW EXAM RADIOLOGY REPORT [...] ovarian cancer at age 52. LOCATION: [facility] BREAST COMPOSITION: Scattered areas fibroglandular density. FINDINGS: [...] Signed By: 04/10/23 1458 DD/ 1457 TD/TT: Gun Fitter: Procedure Note Radiology, Radiologist, MD - 04/12/2023 [facility] [place] [id number] Mammography Report Signed Patient: BERENICE SILVA EMR#: [id number] : 8Acct:[id number] Age/Sex: 77 / FADM Date: 04/09/23 Loc: MAMMO Attending Dr: KVNG LINTON Ordering Physician: KVNG LINTONResults: Date of Service: 04/09/23Follow Up: Procedure(s): MM tomosynthesis screening BI Accession Number(s): [id number] cc: KVNG LINTON Patient: BERENICE SILVA Exam Date: 04/09/2023 : 1945 Gender:F Ordering : DR KVNG LINTON M.D. Admission #: [id number] Family : Order #: [id number] CLICK HERE TO VIEW EXAM RADIOLOGY REPORT [...] ovarian cancer at age 52. LOCATION: [facility] BREAST COMPOSITION: Scattered areas fibroglandular density. FINDINGS: [...] Tariq Levin M.D. Signed By:04/10/23 1458 DD/ 56 TD/TT: Gun Fitter: Kvng Linton MD [facility] Final Result [...] screened with both Cologuard and colonoscopy. (Luc Rosario. et al, N Engl J Med 2014;370(14):8275-6328) The normal value (reference range) for this assay is negative. COLOGUARD RE-SCREENING RECOMMENDATION: Periodic colorectal cancer screening is an important part of preventive healthcare for asymptomatic individuals at average risk for colorectal cancer. Following a negative Cologuard result, the [place] Cancer Society and U.S. Multi-Society Task Force screening guidelines recommend a Cologuard re-screening interval of 3 years. References: [place] Cancer Society Guideline for Colorectal Cancer Screening: https://www.cancer.org/cancer/vmggl-wlupkd-todogb/ilagskcbk-uoovxbgze-tvcnape/ac s-rec ommendations.html.; Dave GALEAS, Jacobo ABRAHAM, Nika ARENAS, Colorectal Cancer Screening: Recommendations for Physicians and Patients from the U.S. Multi-Society Task Force on Colorectal Cancer Screening , Am J Gastroenterology 2017; 112:4377-4891. TEST DESCRIPTION: Composite algorithmic analysis of stool [...] (Luc Reardon al, N Engl J Med 2014;370(14):1226-6823.) Cologuard may produce a false negative or false positive result (no colorectal cancer or precancerous polyp present at colonoscopy follow up). A negative Cologuard test result does not guarantee the absence of CRC or advanced adenoma (pre-cancer). The current Cologuard screening interval is every 3 years. ([place] Cancer Society and U.S. Multi-Society Task Force). Cologuard performance data in a 10,000 patient pivotal study using colonoscopy as the reference method can be accessed at the following location: www.[employer].wripl/results. Additional description of the Cologuard test process, warnings and precautions can be found at www.cologuard.com. 04/10/2022 Kvng Linton MD [facility] Final Result [facility] from Last 3 Months or Most Recently Relevant to Health Maintenance Insurance [employer] Care Teams World Language Teacher Relationship Specialty Start Date End Date Kvng Linton MD [address] [facility] [address] [place] [address] PCP - General Internal Medicine 11/27/22 Kvng Linton MD [address] [facility] [address] [place] [address] PCP - Rashid GALVEZ 07/22/23 Reina Palma LPN [address] [facility] [address] [place] [address] 10/06/24
--- OUTSIDE RECORDS SUMMARY | 2025-04-07 15:28 | XMS_ITS ---
Author Organization [facility] Address [address] [place] [address] Care Team Providers Care Record Clerk Salesperson Name Role Phone Kvng Linton MD Primary Care Provider [phone] Kvng Linton MD Unavailable [phone] Reina Palma LPN Unavailable Chronic Care [...] Name Relationship Phone Reina Palma LPN(Responsible Staff) [phone] Continued Care and Services Coordination
--- OUTSIDE RECORDS SUMMARY | 2025-04-07 15:29 | XMS_ITS | Patient Health Record ---
Author Organization [facility] Address [address] [place] [address] Care Team Providers Care Site Supervising Technical Operator Name Role Phone Araceli Woo Primary Care Provider [phone] Johanna Wheat Unavailable Helga Echevarria Unavailable [phone] Reason For Referral No Information Medications Medication SIG (Take, Route, Fr equency, Duration) Notes Start Date End Date Status Ibuprofen 800 MG 1 tablet with food o r milk as needed Orally Three times a day 05/13/2024 Active Encounters Encounter Location Date Provider Diagnosis [facility] [address] [address] 11/23/2024 Araceli Woo [facility] [address] [facility] [place] [place] [address] 05/13/2024 Johanna Palacios Cracked tooth K03.81 [facility] [address] [place] [address] 05/20/2024 Araceli Woo Cracked tooth K03.81 Assessments Encounter Date Diagnosis (ICD Code) Assessment Notes Treatment Notes Treatment Clinical Notes Section Notes 05/13/2024 Cracked tooth (ICD-10 - K03.81) 05/20/2024 Cracked tooth (ICD-10 - K03.81) Plan Of Treatment Next Appt Details Provider Name:Lizeth Judie, 10:40:00 AM, [address] [place], [address], Insurance Providers Payer Name Payer Address Payer Phone Subscriber Number Group Number Insured Name Patient Relationship to Insured Coverage Start Date Coverage End Date [employer] [address] [address] [place] [phone] [id number] JESSICA SILVA Self - patient is the insured 4
--- OUTSIDE RECORDS SUMMARY | 2025-04-07 15:29 | XMS_ITS | Encounter Summary ---
Author Organization [facility] Address [address] [place] [address] Care Team Providers Care Employment Agency Manager Name Role Phone Kvng Linton MD Primary Care Provider [phone] Kvng Linton MD Unavailable [phone] Reina Palma LPN Unavailable Encounter Details Date Type Department Care Team (Late st Contact Info) Description 02/25/2025 Abstract [facility] 110 [place] [address] Kvng Linton MD 112 [facility] 110 [place], [place] [id number] Social History Tobacco Use Types Packs/Day Years [...] Recorded Patient Health Questionnaire-2 Score 0 [facility]20[facility] - Occupational Stress Questionnaire Answer Date Recorded [...] place to sleep or slept in a group home (including now)? No 10/30/2023 Housing Stability [...] any time in the past 12 m [facility], were you homeless or living in a group home (including now)? No 03/05/2024 Comments Unknown [...] documented as of this encounter Care Teams Employment Agency Manager Relationship Specialty Start Date End Date Kvng Linton MD [address] [place] [address] [place] [address] PCP - General Internal Medicine 11/27/22 Kvng Linton MD [address] [place] [address] [place] [address] PCP - Rashid GALVEZ 07/22/23 Reina Palma LPN [address] [place] [address] [place] [address] 10/06/24 documented as of this encounter
--- OUTSIDE RECORDS SUMMARY | 2025-04-07 15:29 | XMS_ITS | Encounter Summary ---
Author Organization [facility] Address [address] [place] [address] Care Team Providers Care Supervisor Hot Dip Plating Name Role Phone Kvng Linton MD Primary Care Provider [phone] Kvng Linton MD Unavailable [phone] Reina Palma LPN Unavailable Encounter Details Date Type Department Care Team (Latest Contact Info) Description 03/05/2025 Results Follow-Up [facility] [address] [facility] [address] [place] [address] Katlin Triplett MD [address] [facility] [address] [place] [address] Dermatopathology exam Social History Tobacco [...] and Family Not on file 03/05/2024 Attends [employer] Not on file 03/05 Active Member [...] Recorded Patient Health Questionnaire-2 Score 0 02/23/2025 [facility] [...] any time in the past 12 m [facility], were you homeless or living [...] documented as of this encounter Care Teams Supervisor Hot Dip Plating Relationship Specialty Start Date End Date Kvng Linton MD [address] [place] [address] [place] [address] PCP - General Internal Medicine 11/27/22 Kvng Linton MD [address] [place] [address] [place] [address] PCP - Rashid GALVEZ 07/22/23 Reina Palma LPN [address] [place] [address] [place] [address] 10/06/24 documented as of this encounter
--- OUTSIDE RECORDS SUMMARY | 2025-04-07 16:49 | XMS_ITS | CCD ---
Author Organization [facility] Care Team Providers Care Mobile Ui Developer Name Role Phone ANUP JOHN Attending Unavailable [...] Primary Care Provider Kvng Linton MD Unavailable [phone] IRWIN HODGE Attending Unavailable IRWIN HODGE Admitting [...] KVNG LINTON B Primary Care Unavailable Saturday MID LEVEL DEVELOPER, Elvi Unavailable Saturday MID LEVEL DEVELOPER, Elvi Unavailable Heydi Parker RN Unavailable [phone] [place] MID LEVEL DEVELOPER, Reina Unavailable Unavailable [place] MID LEVEL DEVELOPER, Reina Unavailable TSERING STARR Attending Unavailable GABRIELA GILMAN Attending Unavailable KVNG LINTON Attending Unavailable NICKY RIDDLE Attending Unavailable KATLIN ROMERO Attending Unavailable KATLIN ROMERO Attending Unavailable NICKY RIDDLE Attending Unavailable Allergies Allergy Classification Reported Allergen(s) Allergy Type Date of Onset Reaction(s) Facility (1 source) Amoxicillin / Clavulanate Drug Allergy The [facility] Repository (1 source) Cephalexin Drug Allergy 9 [facility] Repository (1 source) Sulfonamides (Antibiotic) Drug allergy (disorder) [facility] Repository (20 sources) Sulfonamides (Antibiotic) Drug Allergy 3 [facility] (20 sources) Amoxicillin-Pot Clavulanate; Translations: [AMOXICILLIN-POT CLAVULANATE] Drug Allergy 1 Nausea Only [facility] Healthcare (3 sources) Sulfonamides (Antibiotic); Translations: [SULFA (SULFONAMIDE ANTIBIOTICS)] Propensity to adverse reactions to drug (disorder) 2 [facility] Repository Medications Current Medications Medication Drug Class(es) Dates Sig (Normalized) Sig (Original) acetaminophen 325 mg / HYDROcodone bitartrate 5 mg oral tablet (3 sources) Opioid Agonist Start: 10-22-2022 End: 09-04-2023 take 1 tablet by mouth four times daily as needed HYDROcodone-aceta minophen ([place]) 5-325 MG tablet Take 1 tablet by [...] Start: 06-17-2023 take 2 tablets by mo [facility] in the morning rOPINIRole (Requip) 0.5 MG [...] 02/23/2025 03/05/2025 Active take [facility] hours as needed traMADol (Ultram) [...] 03-12-2023 Chronic Other aftercare (1 source) Other prison (current) drug therapy; Translations: [OTH AUTOMOBILE DRIVERS CURRENT DRUG THERAPY] Onset: 10-31-2022 Episodic Other [...] 6.0 ml Estimated blood loss: <1.0 ml [facility] e Complexity: Intermediate Final length (cm): 2.3 [...] uncontrollable bleeding, or complications. Dressing type: bandage [facility] XR FOOT RT MIN 3Von 01-28-[address] [place] [address] XRay Report Signed Patient: BERENICE SILVA MR#: [id number] : 1945 Acct:[id number] Age/Sex: 79 / F ADM Date: 01/27/25 Loc: RAD Attending Dr: Anup John D.P.M. Ordering Physician: Anup John D.P.M. Date of Service: 01/27/25 Procedure(s): XR foot RT min 3V Accession Number(s): [id number] cc: KVNG LINTON ; Anup John D.P.M. The [place] [id number] Patient Name: BERENICE SILVA MRN: [facility]:[id number] date: 1945 Sex: F Assigned Patient Location: [facility] Current Patient Location: Accession/Order Number: [id number] Exam Date: 01/27/2025 15:38 Report Date: 01/27/2025 [...] Fish M.D. 01/27/2025 3:41 PM Dictation Location: [place] [address] Electronically authenticated by: [id number] Y Date: 01/27/2025 15:41 Dictated By: Lew Fish D.O. Signed By: 01/27/25 1543 DD/ 1541 TD/TT: Neuropsychiatrist: [facility] Radiology, Radiologist, MD - 01/27/2025 [place] [address] XRay Report Signed Patient: BERENICE SILVA MR#: [id number] : 1945 Acct:[id number] Age/Sex: 79 / F ADM Date: 01/27/25 Loc: [facility] Attending Dr: Anup John D.P.M. Ordering Physician: Anup John D.P.M. Date of Service: 01/27/25 Procedure(s): XR foot RT min 3V Accession Number(s): [id number] cc: KVNG LINTON ; Anup John D.P.M. The [place] [address] Patient Name: BERENICE SILVA MRN: [facility]:[id number] date: 1945 Sex: F Assigned Patient Location: [facility] Current Patient Location: Accession/Order Number: [id number] Exam Date: 01/27/2025 15:38 Report Date: 01/27/2025 [...] Fish M.D. 01/27/2025 3:41 PM Dictation Location: [place] [address] Electronically authenticated by: [id number] Y Date: 01/27/2025 15:41 Dictated By: Lew Fish D.O. Signed By: 01/27/25 1543 DD/ 1541 TD/TT: Neuropsychiatrist: [facility] [employer] Radiology Study observation (narrative) [facility] XR FOOT RT MIN 3VOrdered By: Radiologist Radiology on 01-27-2025 [facility] [employer] Work Phone: CBC (INCLUDES DIFF/PLT)on Basophils (Bld) [#/Vol] 0.053 10*3/uL Normal 0-200 [facility] Comment on above: Performed By: #### 6 399, 0120, 85092 #### [facility] [address], [address] [place] [id number] Interpreter: Keagan Holly MD Basophils/100 WBC (Bld) 1.0 % Normal [facility] Comment on above: Performed By: #### 6 399, 7600, 16986 #### [facility] of [place] [address] Interpreter: Keagan Holly MD Eosinophils (Bld) [#/Vol] 0.143 10*3/uL Normal 15-500 [facility] Comment on above: Performed By: #### 6 399, 7600, 72085 #### [facility] of [place] [address] Interpreter: Keagan Holly MD Eosinophils/100 WBC (Bld) 2.7 % Normal [facility] Comment on above: Performed By: #### 6 399, 7600, 39438 #### [facility] of [place] [address] Interpreter: Keagan Holly MD Erythrocyte distribution width (RBC) [Ratio] 11.9 % Normal 11.0-15.0 [facility] Comment on above: Performed By: #### 6 399, 7600, 86283 #### [facility] of [place] [address] Interpreter: Keagan Holly MD Hematocrit (Bld) [Volume fraction] 38.1 % Normal 35.0-45.0 [facility] Comment on above: Performed By: #### 6 399, 7600, 14948 #### [facility] of [place] [address] Interpreter: Keagan Holly MD Hemoglobin (Bld) [Mass/Vol] 13.1 g/dL Normal 11.7-15.5 [facility] Comment on above: Performed By: #### 6 399, 7600, 86444 #### [facility] of [place] [address] Interpreter: Keagan Holly MD Lymphocytes (Bld) [#/Vol] 1.988 10*3/uL Normal 850-3900 [facility] Comment on above: Performed By: #### 6 399, 7600, 29769 #### [facility] [place] [address]preter: Keagan Holly MD Lymphocytes/100 WBC (Bld) 37.5 % Normal [facility] Comment on above: Performed By: #### 6 399, 7600, 02735 #### [facility] [place] [address] Interpreter: Keagan Holly MD MCH (RBC) [Entitic mass] 31.3 pg Normal 27.0-33.0 [facility] Comment on above: Performed By: #### 6 399, 7600, 23922 #### [facility] [place] [address] Interpreter: Keagan Holly MD MCHC (RBC) [Mass/Vol] 34.4 [...] condition. Performed By: #### 6 399, 7600, 28880 #### [facility] of [place] [address] Interpreter: Keagan Holly MD MCV (RBC) [Entitic vol] 91.1 fL Normal 80.0-100.0 [facility] Comment on above: Performed By: #### 6 399, 7600, 38079 #### [facility] [place] [address] Interpreter: Keagan Holly MD Monocytes (Bld) [#/Vol] 0.392 10*3/uL Normal 200-950 [facility] Comment on above: Performed By: #### 6 399, 7600, 12321 #### [facility] [place] [address] Interpreter: Keagan Holly MD Monocytes/100 WBC (Bld) 7.4 % Normal [facility] Comment on above: Performed By: #### 6 399, 7600, 03737 #### [facility] of [place] [address] Interpreter: Keagan Holly MD Neutrophils (Bld) [#/Vol] 2.724 10*3/uL Normal 2122-0915 [facility] Comment on above: Performed By: #### 6 399, 7600, 50841 #### [facility] of [place] [address] Interpreter: Keagan Holly MD Neutrophils/100 WBC (Bld) 51.4 % Normal [facility] Comment on above: Performed By: #### 6 399, 7600, 68873 #### [facility] [place] [address] Interpreter: Keagan Holly MD Platelet mean volume (Bld) [Entitic vol] 9.1 fL Normal 7.5-12.5 [facility] Comment on above: Performed By: #### 6 399, 7600, 49459 #### [facility] [place] [address] Interpreter: Keagan Holly MD Platelets (Bld) [#/Vol] 335 10*3/uL Normal 140-400 [facility] Comment on above: Performed By: #### 6 399, 7600, 42483 #### [facility] of [place] [address] Interpreter: Keagan Holly MD RBC (Bld) [#/Vol] 4.18 10*6/uL Normal 3.80-5.10 [facility] Comment on above: Performed By: #### 6 399, 7600, 83589 #### [facility] of [place] [address] Interpreter: Keagan Holly MD WBC (Bld) [#/Vol] 5.3 10*3/uL Normal 3.8-10.8 [facility] Comment on above: Performed By: #### 6 399, 7600, 34782 #### [facility] of [address], [address] [place] [address] Interpreter: Keagan Holly MD [facility] METABOLIC [facility] 08-04-2024 Albumin [Mass/Vol] 4.4 g/dL Normal 3.6-5.1 [facility] Comment on above: Performed By: #### 6 399, 7600, 22002 #### [facility] of [address], [address] [place] [address] Interpreter: Keagan Holly MD Albumin/Globulin [Mass ratio] 1.8 {ratio} Normal 1.0-2.5 [facility] Comment on above: Performed By: #### 6 399, 7600, 50896 #### [facility] of [place] [address] Interpreter: Keagan Holly MD ALP [Catalytic activity/Vol] 68 U/L Normal 37-153 [facility] Comment on above: Performed By: #### 6 399, 7600, 86475 #### [facility] of [place] [address] Interpreter: Keagan Holly MD ALT [Catalytic activity/Vol] 15 U/L Normal 6-29 [facility] Comment on above: Performed By: #### 6 399, 7600, 80026 #### [facility] of [place] [address] Interpreter: Keagan Holly MD AST [Catalytic activity/Vol] 18 U/L Normal 10-35 [facility] Comment on above: Performed By: #### 6 399, 7600, 91841 #### [facility] of [place] [address] Interpreter: Keagan Holly MD Bilirubin [Mass/Vol] 0.5 mg/dL Normal 0.2-1.2 [facility] Comment on above: Performed By: #### 6 399, 7600, 16445 #### [facility] of [address] [place] [address] Interpreter: Keagan Holly MD BUN/CREATININE RATIO SEE NOTE: Normal 6- [facility] Comment on above: Result Comment: Not Reported: BUN and Creatinine are within reference range. Performed By: #### 6 399, 7600, 43286 #### [facility] of [address], [address] [place] [address] Interpreter: Keagan Holly MD Calcium [Mass/Vol] 9.5 mg/dL Normal 8.6-10.4 [facility] Comment on above: Performed By: #### 6 399, 7600, 78570 #### [facility] of [address], [address] [place] [address] Interpreter: Keagan Holly MD Chloride [Moles/Vol] 100 mmol/L Normal 98-110 [facility] Comment on above: Performed By: #### 6 399, 7600, 75033 #### [facility] of [address], [address] [place] [address] Interpreter: Keagan Holly MD CO2 [Moles/Vol] 31 mmol/L Normal 20-32 [facility] Comment on above: Performed By: #### 6 399, 7600, 60438 #### [facility] of [place] [address] Interpreter: Keagan Holly MD Creatinine [Mass/Vol] 0.74 mg/dL Normal 0.60-1.00 [facility] Comment on above: Performed By: #### 6 399, 7600, 30486 #### [facility] of [address], [address] [place] [address] Interpreter: Keagan Holly MD GFR/1.73 sq M.predicted among non-blacks MDRD (S/P/Bld) [Vol rate/Area] 84 mL/min/{1.73_m2} Normal > OR = 60 [facility] Comment on above: Performed By: #### 6 399, 7600, 23806 #### [facility] of [address], [address] [place] [address] Interpreter: Keagan Holly MD Globulin (S) [Mass/Vol] 2.5 g/dL Normal 1.9-3.7 [facility] Comment on above: Performed By: #### 6 399, 7600, 10697 #### [facility] of [place] [address] Interpreter: Keagan Holly MD Glucose [Mass/Vol] 88 mg/dL Normal 65-99 [facility] Comment on above: Result Comment: Fasting reference interval Performed By: #### 6 399, 7600, 85222 #### [facility] of [place] [address] Interpreter: Keagan Holly MD Potassium [Moles/Vol] 4.0 mmol/L Normal 3.5-5.3 [facility] Comment on above: Performed By: #### 6 399, 7600, 57672 #### [facility] of [place] [address] Interpreter: Keagan Holly MD Protein [Mass/Vol] 6.9 g/dL Normal 6.1-8.1 [facility] Comment on above: Performed By: #### 6 399, 7600, 27418 #### [facility] of [place] [address] Interpreter: Keagan Holly MD Sodium [Moles/Vol] 138 mmol/L Normal 135-146 [facility] Comment on above: Performed By: #### 6 399, 7600, 76447 #### [facility] of [place] [address] Interpreter: Keagan Holly MD Urea nitrogen [Mass/Vol] 16 mg/dL Normal 7-25 [facility] Comment on above: Performed By: #### 6 399, 7600, 21819 #### [facility] of [place] [address] Interpreter: Keagan Holly MD LIPID PANEL, [facility] 07-22 Cholesterol [Mass/Vol] 261 mg/dL High <200 [facility] Comment on above: Order Comment: FASTI NG:YES FASTING: YES Performed By: #### 6 399, 7600, 26007 #### [facility] [address], [address] [place], [place] [id number] Certified Court Interpreter: Keagan Holly MD Cholesterol in HDL [Mass/Vol] 66 mg/dL Normal > OR = 50 [facility] Comment on above: Order Comment: FASTI NG:YES FASTING: YES Performed By: #### 6 399, 7600, 37798 #### [facility] [address], [address] [place] [address]: Keagan Holly MD Cholesterol in LDL [Mass/Vol] [...] LDL-C. Edwin SS et al. LUL. 2013;310(19): 2085-8808 (http://education.[employer]/faq/CDU642) Performed By: #### 6 399, 7600, 32428 #### [facility] [address], [address] [place] [address] Interpreter: Keagan Holly MD Cholesterol.total/C holesterol in HDL [Mass ratio] 4.0 {ratio} Normal <5.0 [facility] Comment on above: Order Comment: FASTI NG:YES FASTING: YES Performed By: #### 6 399, 7600, 45798 #### [facility] [address], [address] [place], [place] [id number] Certified Court Interpreter: Keagan Holly MD NON HDL CHOLESTEROL 195 mg/dL (calc) High <130 [facility] Comment on above: Order Comment: FASTI NG:YES FASTING: YES Result Comment: For patients with diabetes plus 1 major ASCVD risk factor, treating to a non-HDL-C goal of <100 mg/dL (LDL-C of <70 mg/dL) is considered a therapeutic option. Performed By: #### 6 399, 7600, 37164 #### [facility] [address], [address] [place] [address] Interpreter: Keagan Holly MD Triglyceride [Mass/Vol] 181 mg/dL High <150 [facility] Comment on above: Order Comment: FASTI NG:YES FASTING: YES Performed By: #### 6 399, 7600, 05201 #### [facility] [address], [address] [place] [address] Interpreter: Keagan Holly MD VITAMIN D,25-OH,TOTAL,IAon 0 08-04-2024 [...] D, (D2,D3), LC/MS/MS is recommended: order code 72083 (patients >2yrs). See Note 1 Note 1 For additional information, please refer to http://education.[employer]/faq/QCI376 (This link is being provided for informational/ educational purposes only.) Performed By: #### 6 399, 7600, 76655 #### [facility] [address], [address] [place] [address] Interpreter: Keagan Holly MD CT COLONOGRAPHY SCREENINGon 01-21-2024 [...] presence or absence of which will not change management manager of the patient. In addition, digital [...] Curry MD on 01/21/2024 8:17 AM Normal [facility] Cult,Bloodon 10-31-2023 Cult,Blood Specimen Description .BLOOD Special Requests 20ML RAC Culture NO GROWTH 5 DAYS Report Status FINAL 10/31/2023 Normal [facility] Comment on above: Performed By: #### B C #### [facility] [address] [place], [place] [id number] Credit Risk Management Director: Ayden Regan MD Cult,Blood Specimen Description .BLOOD Special Requests 20ML LFT WRIST Culture NO GROWTH 5 DAYS Report Status FINAL 10/31/2023 Normal [facility] Comment on above: Performed By: #### B C #### [facility] [address] [place], [place] [address] Credit Risk Management Director: Ayden Regan MD CBC with Diffon 10-27-2023 Abs. Basophil 0.03 k/uL Normal 0.00-0.20 [facility] Comment on above: Performed By: #### L ACDS #### [address] [place], [place] [id number] Credit Risk Management Director: Ayden Regan MD Abs.Imm.Granulocyte 0.03 k/uL Normal 0.00-0.30 [facility] Comment on above: Performed By: #### L ACDS #### [address] [place], [place] [id number] Credit Risk Management Director: Ayden Regan MD Abs.Neutrophil (Seg) 7.25 k/uL Normal 1.50-8.10 [facility] Comment on above: Performed By: #### L ACDS #### [address] [place], [place] [address] Credit Risk Management Director: Ayden Regan MD Basophils/100 WBC (Bld) 0 % Normal 0-2 [facility] Comment on above: Performed By: #### L ACDS #### [address] [place], [place] [id number] Credit Risk Management Director: Ayden Regan MD Eosinophils (Bld) [#/Vol] 0.04 10*3/uL Normal 0.00-0.44 [facility] Comment on above: Performed By: #### L ACDS #### [facility] [address] [place], [place] [address] Credit Risk Management Director: Ayden Regan MD Eosinophils/100 WBC (Bld) 0 % Low 1-4 [facility] Comment on above: Performed By: #### L ACDS #### [address] [place], [place] [address] Credit Risk Management Director: Ayden Regan MD Erythrocyte distribution width (RBC) [Ratio] 12.5 % Normal 11.8-14.4 [facility] Comment on above: Performed By: #### L ACDS #### [address] [place], [facility]83 Credit Risk Management Director: Ayden Regan MD Hematocrit (Bld) [Volume fraction] 29.2 % Low 36.3-47.1 [facility] Comment on above: Performed By: #### L ACDS #### [address] [place], [facility]83 Credit Risk Management Director: Ayden Regan MD Hemoglobin (Bld) [Mass/Vol] 9.7 g/dL Low 11.9-15.1 [facility] Comment on above: Performed By: #### L ACDS #### [address] [place], [place] [id number] Credit Risk Management Director: Ayden Regan MD Immature granulocytes/100 WBC (Bld) 0 % Normal 0 [facility] Comment on above: Performed By: #### L ACDS #### [address] [place], [facility]83 Credit Risk Management Director: Ayden Regan MD Lymphocytes (Bld) [#/Vol] 1.83 10*3/uL Normal 1.10-3.70 [facility] Comment on above: Performed By: #### L ACDS #### [address] [place], [place] [address] Credit Risk Management Director: Ayden Regan MD Lymphocytes/100 WBC (Bld) 18 % Low 24-43 [facility] Comment on above: Performed By: #### L ACDS #### [facility] [address] [place], [place] [address] Credit Risk Management Director: Ayden Regan MD MCH (RBC) [Entitic mass] 30.1 pg Normal 25.2-33.5 [facility] Comment on above: Performed By: #### L ACDS #### [facility] [address] [place], [place] [id number] Credit Risk Management Director: Ayden Regan MD MCHC (RBC) [Mass/Vol] 33.2 g/dL Normal 28.4-34.8 [facility] Comment on above: Performed By: #### L ACDS #### [address] [place], [place] [address] Credit Risk Management Director: Ayden Regan MD MCV (RBC) [Entitic vol] 90.7 fL Normal 82.6-102.9 [facility] Comment on above: Performed By: #### L ACDS #### [address] [place], [place] [id number] Credit Risk Management Director: Ayden Regan MD Monocytes (Bld) [#/Vol] 1.02 10*3/uL Normal 0.10-1.20 [facility] Comment on above: Performed By: #### L ACDS #### [facility] [address] [place], [facility]83 Credit Risk Management Director: Ayden Regan MD Monocytes/100 WBC (Bld) 10 % Normal 3-12 [facility] Comment on above: Performed By: #### L ACDS #### [facility] [address] [place], [place] [address] Credit Risk Management Director: Ayden Regan MD Neutrophil (Seg) 71 % High 36-65 [facility] Comment on above: Performed By: #### L ACDS #### [facility] [address] [place], [place] [id number] Credit Risk Management Director: Ayden Regan MD NRBC Automated 0.0 per 100 WBC Normal 0.0 [facility] Comment on above: Performed By: #### L ACDS #### [facility] [address] [place], [facility]83 Credit Risk Management Director: Ayden Regan MD Platelet mean volume (Bld) [Entitic vol] 8.7 fL Normal 8.1-13.5 [facility] Comment on above: Performed By: #### L ACDS #### [address] [place] [address] Credit Risk Management Director: Ayden Regan MD Platelets (Bld) [#/Vol] 237 10*3/uL Normal 138-453 [facility] Comment on above: Performed By: #### L ACDS #### [address] [place], [place] [address] Credit Risk Management Director: Ayden Regan MD RBC (Bld) [#/Vol] 3.22 10*6/uL Low 3.95-5.11 [facility] Comment on above: Performed By: #### L ACDS #### [address] [place], [facility]83 Credit Risk Management Director: Ayden Regan MD WBC (Bld) [#/Vol] 10.2 10*3/uL Normal 3.5-11.3 [facility] Comment on above: Performed By: #### L ACDS #### [address] [place], [place] [id number] Credit Risk Management Director: Ayden Regan MD Comp Metabolic Pr/rfx MGon 0 10-27-2023 Albumin [Mass/Vol] 3.1 g/dL Low 3.5-5.2 [facility] Comment on above: Performed By: #### L ACDS #### [address] [place], [place] [address] Credit Risk Management Director: Ayden Regan MD Albumin/Glob Ratio 1.3 Normal 1.0-2.5 [facility] Comment on above: Performed By: #### L ACDS #### [facility] [address] [place], [place] [address] Credit Risk Management Director: Ayden Regan MD Alkaline Phos 80 U/L Normal 35-104 [facility] Comment on above: Performed By: #### L ACDS #### [facility] [address] [place], [place] [phone] Credit Risk Management Director: Ayden Regan MD ALT [Catalytic activity/Vol] 9 U/L Normal 5-33 [facility] Comment on above: Performed By: #### L ACDS #### [facility] [address] [place], [place] [address] Credit Risk Management Director: Ayden Regan MD Anion gap [Moles/Vol] 8 mmol/L Low 9-17 [facility] Comment on above: Performed By: #### L ACDS #### [facility] [address] [place] [address] Dr[place], [place] [id number] Credit Risk Management Director: Ayden Regan MD AST [Catalytic activity/Vol] 13 U/L Normal <32 [facility] Comment on above: Performed By: #### L ACDS #### [facility] [address] [place], [place] [address] Credit Risk Management Director: Ayden Regan MD Bilirubin [Mass/Vol] 0.6 mg/dL Normal 0.3-1.2 [facility] Comment on above: Performed By: #### L ACDS #### [facility] [address] [place] [address] Credit Risk Management Director: Ayden Regan MD BUN/CRE Ratio 16 Normal 9-20 [facility] Comment on above: Performed By: #### L ACDS #### [facility] [address] [place] [address] Credit Risk Management Director: Ayden Regan MD Calcium [Mass/Vol] 8.2 mg/dL Low 8.6-10.4 [facility] Comment on above: Performed By: #### L ACDS #### [facility] [address] [place], [place] [address]32[address]83 Credit Risk Management Director: Ayden Regan MD Chloride [Moles/Vol] 106 mmol/L Normal 98-107 [facility] Comment on above: Performed By: #### L ACDS #### [facility] [address] [place], [place] 1560783 Credit Risk Management Director: Ayden Regan MD CO2 [Moles/Vol] 26 mmol/L Normal 20-31 [facility] Comment on above: Performed By: #### L ACDS #### [facility] [address] [place], [place] 4582583 Credit Risk Management Director: Ayden Regan MD Creatinine [Mass/Vol] 0.7 mg/dL Normal 0.5-0.9 [facility] Comment on above: Performed By: #### L ACDS #### [facility] [address] [place] [address] Credit Risk Management Director: Ayden Regan MD GFR/1.73 sq M.predicted among non-blacks MDRD (S/P/Bld) [Vol rate/Area] mL/min/{1.73_m2} Normal >60 [facility] Comment on above: Result Comment: These results [...] secretion. Performed By: #### L ACDS #### [facility] [address] [place], [place] [id number] Credit Risk Management Director: Ayden Regan MD Glucose [Mass/Vol] 97 mg/dL Normal 70-99 [facility] Comment on above: Performed By: #### L ACDS #### [facility] [address] [place], [place] 3845583 Credit Risk Management Director: Ayden Regan MD Potassium [Moles/Vol] 3.6 mmol/L Low 3.7-5.3 [facility] Comment on above: Performed By: #### L ACDS #### [facility] [address] [place], [place] [id number] Credit Risk Management Director: Ayden Regan MD Protein [Mass/Vol] 5.4 g/dL Low 6.4-8.3 [facility] Comment on above: Performed By: #### L ACDS #### [facility] [address] [place] [address] Dr. [place], [place] 5794783 Credit Risk Management Director: Ayden Regan MD Sodium [Moles/Vol] 140 mmol/L Normal 135-144 [facility] Comment on above: Performed By: #### L ACDS #### [address] [place], [place] 6005583 Credit Risk Management Director: Ayden Regan MD Urea nitrogen [Mass/Vol] 11 mg/dL Normal 8-23 [facility] Comment on above: Performed By: #### L ACDS #### [facility] [address] [place], [place] 7111283 Credit Risk Management Director: Ayden Regan MD Cult,Urineon 10-27-2023 Cult,Urine Specimen Description .URINE,STRAIGHT CATHETER Culture STREPTOCOCCI, BETA HEMOLYTIC GROUP B 10 to 50,000 CFU/ML Report Status FINAL 10/27/2023 Normal [facility] Comment on above: Performed By: #### U RC #### [address] [id number] Credit Risk Management Director: Nahum Nixon MD [facility] [address] [place] [address] Credit Risk Management Director: Ayden Regan MD Procalcitoninon 10-27-2023 Procalcitonin 0.06 ng/mL Normal 0.00-0.09 [facility] Comment on above: Result Comment: Suspected [...] entered into the Change in Procalcitonin Calculator ([email or web address]) to determine the patient's Mortality Risk Prognosis In healthy neonates, plasma Procalcitonin (PCT) concentrations increase gradually after , reaching peak values at about 24 hours of age then decrease to normal values below 0.5 ng/mL by 48-72 hours of age. Performed By: #### P RCAL #### [address] [id number] Credit Risk Management Director: Nahum Nixon MD CBC with Diffon 10-26-2023 Abs. Basophil 0.04 k/uL Normal 0.00-0.20 [facility] Comment on above: Performed By: #### T BRETT MELENDEZ, CP #### [facility] [address] [place] [address] Credit Risk Management Director: Ayden Regan MD Abs.Imm.Granulocyte 0.04 k/uL Normal 0.00-0.30 [facility] Comment on above: Performed By: #### T BRETT MELENEDZ, CP #### [facility] [address] [place] [address] Credit Risk Management Director: Ayden Regan MD Abs.Neutrophil (Seg) 9.87 k/uL High 1.50-8.10 [facility] Comment on above: Performed By: #### BRETT ALMANZA, CP #### [address] [place], [facility]83 Credit Risk Management Director: Ayden Regan MD Basophils/100 WBC (Bld) 0 % Normal 0-2 [facility] Comment on above: Performed By: #### BRETT ALMANZA, CP #### [address] [place] [id number] Credit Risk Management Director: Ayden Regan MD Eosinophils (Bld) [#/Vol] 0.06 10*3/uL Normal 0.00-0.44 [facility] Comment on above: Performed By: #### BRETT ALMANZA, CP #### [address] [place], [place] [address] Credit Risk Management Director: Ayden Regan MD Eosinophils/100 WBC (Bld) 1 % Normal 1-4 [facility] Comment on above: Performed By: #### BRETT ALMANZA, CP #### [address] [place], [facility]83 Credit Risk Management Director: Ayden Regan MD Erythrocyte distribution width (RBC) [Ratio] 12.1 % Normal 11.8-14.4 [facility] Comment on above: Performed By: #### BRETT ALMANZA, CP #### [address] [place], [facility]83 Credit Risk Management Director: Ayden Regan MD Hematocrit (Bld) [Volume fraction] 37.2 % Normal 36.3-47.1 [facility] Comment on above: Performed By: #### BRETT ALMANZA, CP #### [address] [place], [facility]83 Credit Risk Management Director: Ayden Regan MD Hemoglobin (Bld) [Mass/Vol] 12.6 g/dL Normal 11.9-15.1 [facility] Comment on above: Performed By: #### BRETT ALMANZA, CP #### [address] [place], [place] 7772383 Credit Risk Management Director: Ayden Regan MD Immature granulocytes/100 WBC (Bld) 0 % Normal 0 [facility] Comment on above: Performed By: #### BRETT ALMANZA, CP #### [address] [place] [address] Credit Risk Management Director: Ayden Regan MD Lymphocytes (Bld) [#/Vol] 0.81 10*3/uL Low 1.10-3.70 [facility] Comment on above: Performed By: #### BRETT ALMANZA, CP #### [address] [place], [facility]83 Credit Risk Management Director: Ayden Regan MD Lymphocytes/100 WBC (Bld) 7 % Low 24-43 [facility] Comment on above: Performed By: #### BRETT ALMANZA, CP #### [address] [place], [place] 0735983 Credit Risk Management Director: Ayden Regan MD MCH (RBC) [Entitic mass] 30.4 pg Normal 25.2-33.5 [facility] Comment on above: Performed By: #### BRETT ALMANZA, CP #### [address] [place], [place] 0906483 Credit Risk Management Director: Ayden Regan MD MCHC (RBC) [Mass/Vol] 33.9 g/dL Normal 28.4-34.8 [facility] Comment on above: Performed By: #### BRETT ALMANZA, CP #### [address] [place], [place] 7130783 Credit Risk Management Director: Ayden Regan MD MCV (RBC) [Entitic vol] 89.9 fL Normal 82.6-102.9 [facility] Comment on above: Performed By: #### BRETT ALMANZA, CP #### [facility] [address] [place] [address] Dr. [place], [place] 0835083 Credit Risk Management Director: Ayden Regan MD Monocytes (Bld) [#/Vol] 0.89 10*3/uL Normal 0.10-1.20 [facility] Comment on above: Performed By: #### BRETT ALMANZA, CP #### [address] [place] [address] Credit Risk Management Director: Ayden Regan MD Monocytes/100 WBC (Bld) 8 % Normal 3-12 [facility] Comment on above: Performed By: #### BRETT ALMANZA, CP #### [address] [place], [place] [address] Credit Risk Management Director: Ayden Regan MD Neutrophil (Seg) 84 % High 36-65 [facility] Comment on above: Performed By: #### BRETT ALMANZA, CP #### [address] [place], [place] 5841083 Credit Risk Management Director: Ayden Regan MD NRBC Automated 0.0 per 100 WBC Normal 0.0 [facility] Comment on above: Performed By: #### BRETT ALMANZA, CP #### [address] [place], [facility]83 Credit Risk Management Director: Ayden Regan MD Platelet mean volume (Bld) [Entitic vol] 8.5 fL Normal 8.1-13.5 [facility] Comment on above: Performed By: #### BRETT ALMANZA, CP #### [address] [place] [address] Credit Risk Management Director: Ayden Regan MD Platelets (Bld) [#/Vol] 312 10*3/uL Normal 138-453 [facility] Comment on above: Performed By: #### T BRETT MELENDEZ, CP #### [facility] [address] [place], [place] 5652883 Credit Risk Management Director: Ayden Regan MD RBC (Bld) [#/Vol] 4.14 10*6/uL Normal 3.95-5.11 [facility] Comment on above: Performed By: #### T BRETT MELENDEZ, CP #### [facility] [address] [place], [place] 1436783 Credit Risk Management Director: Ayden Regan MD WBC (Bld) [#/Vol] 11.7 10*3/uL High 3.5-11.3 [facility] Comment on above: Performed By: #### T BRETT MELENDEZ, CP #### [facility] [address] [place] 1643483 Credit Risk Management Director: Ayden Regan MD CT HEAD WO CONTRASTon [...] Seven Moreno MD 10/26/23 Final result Normal [facility] Comp Metabolic Profon 2023 Albumin [Mass/Vol] 3.9 g/dL Normal 3.5-5.2 [facility] Comment on above: Performed By: #### T BRETT MELENDEZ, CP #### [facility] [address] [place], [place] 5757183 Credit Risk Management Director: Ayden Regan MD Albumin/Glob Ratio 1.2 Normal 1.0-2.5 [facility] Comment on above: Performed By: #### T BRETT MELENDEZ, CP #### [facility] [address] [place], [place] 1601983 Credit Risk Management Director: Ayden Regan MD Alkaline Phos 87 U/L Normal 35-104 [facility] Comment on above: Performed By: #### T BRETT MELENDEZ, CP #### [facility] [address] [place], [place] 7797283 Credit Risk Management Director: Ayden Regan MD ALT [Catalytic activity/Vol] 12 U/L Normal 5-33 [facility] Comment on above: Performed By: #### T BRETT MELENDEZ, CP #### [facility] [address] [place], [place] 5479783 Credit Risk Management Director: Ayden Regan MD Anion gap [Moles/Vol] 9 mmol/L Normal 9-17 [facility] Comment on above: Performed By: #### T BRETT MELENDEZ, CP #### [facility] [address] [place], [place] 6339383 Credit Risk Management Director: Ayden Regan MD AST [Catalytic activity/Vol] 15 U/L Normal <32 [facility] Comment on above: Performed By: #### T BRETT MELENDEZ, CP #### [facility] [address] [place], [place] [phone] Credit Risk Management Director: Ayden Regan MD Bilirubin [Mass/Vol] 0.4 mg/dL Normal 0.3-1.2 [facility] Comment on above: Performed By: #### T BRETT MELENDEZ, CP #### [facility] [address] [place] [address] Credit Risk Management Director: Ayden Regan MD BUN/CRE Ratio 16 Normal 9-20 [facility] Comment on above: Performed By: #### T BRETT MELENDEZ, CP #### [facility] [address] [place], [place] 7596683 Credit Risk Management Director: Ayden Regan MD Calcium [Mass/Vol] 9.2 mg/dL Normal 8.6-10.4 [facility] Comment on above: Performed By: #### T BRETT MELENDEZ, CP #### [facility] [address] [place], [place] 6602983 Credit Risk Management Director: Ayden Regan MD Chloride [Moles/Vol] 95 mmol/L Low 98-107 [facility] Comment on above: Performed By: #### BRETT ALMANZA, CP #### [facility] [address] [place] [address] Credit Risk Management Director: Ayden Regan MD CO2 [Moles/Vol] 26 mmol/L Normal 20-31 [facility] Comment on above: Performed By: #### BRETT ALMANZA, CP #### [facility] [address] [place] [address] [place] [address] Credit Risk Management Director: Ayden Regan MD Creatinine [Mass/Vol] 0.8 mg/dL Normal 0.5-0.9 [facility] Comment on above: Performed By: #### BRETT ALMANZA, CP #### [facility] [address] [place] [address] Credit Risk Management Director: Ayden Regan MD GFR/1.73 sq M.predicted among non-blacks MDRD (S/P/Bld) [Vol rate/Area] 77 mL/min/{1.73_m2} Normal >60 [facility] Comment on above: Result Comment: These results [...] By: #### T BRETT MELENDEZ, CP #### [facility] [address] [place] [address] [place] [address] Credit Risk Management Director: Ayden Regan MD Glucose [Mass/Vol] 119 mg/dL High 70-99 [facility] Comment on above: Performed By: #### BRETT ALMANZA, CP #### [address] [place], [place] 8984183 Credit Risk Management Director: Ayden Regan MD Potassium [Moles/Vol] 3.8 mmol/L Normal 3.7-5.3 [facility] Comment on above: Performed By: #### BRETT ALMANZA, CP #### [address] [place], [place] 3036483 Credit Risk Management Director: Ayden Regan MD Protein [Mass/Vol] 7.2 g/dL Normal 6.4-8.3 [facility] Comment on above: Performed By: #### BRETT ALMANZA, CP #### [address] [place], [place] 9517983 Credit Risk Management Director: Ayden Regan MD Sodium [Moles/Vol] 130 mmol/L Low 135-144 [facility] Comment on above: Performed By: #### BRETT ALMANZA, CP #### [address] [place] [address] Credit Risk Management Director: Ayden Regan MD Urea nitrogen [Mass/Vol] 13 mg/dL Normal 8-23 [facility] Comment on above: Performed By: #### BRETT ALMANZA, CP #### [facility] [address] [place], [place] [phone] Credit Risk Management Director: Ayden Regan MD Lactate, Sepsison 10-26-2023 Lactic Acid, Sepsis 1.0 mmol/L Normal 0.5-1.9 [facility] Comment on above: Performed By: #### L ACDS #### [facility] [address] [place] [address] [place]. [place], [place] 2435083 Credit Risk Management Director: Ayden Regan MD Lactic Acid, Sepsis 1.6 mmol/L Normal 0.5-1.9 [facility] Comment on above: Performed By: #### L ACDS #### [address] [place], [place] 3235583 Credit Risk Management Director: Ayden Regan MD Troponinon 10-26-2023 Troponin, High Sens 12 ng/L Normal 0-14 [facility] Comment on above: Result Comment: High Sensitivity Troponin values cannot be compared with other Troponin methodologies. Performed By: #### L ACDS #### [address] [place], [place] [phone] Credit Risk Management Director: Ayden Regan MD Troponin, High Sens 12 ng/L Normal 0-14 [facility] Comment on above: Result Comment: High Sensitivity Troponin values cannot be compared with other Troponin methodologies. Performed By: #### T ROPI, CDP, CP #### [facility] [address] [place] [address] [place], [place] 7808783 Credit Risk Management Director: Ayden Regan MD Urinalysis w/ Microon 2023 Bilirubin, SemiQt,Ur Negative Normal NEG [facility] Comment on above: Performed By: #### L ACDS #### [address] [place], [place] 1564883 Credit Risk Management Director: Ayden Regan MD Blood, Urine Negative Normal NEG [facility] Comment on above: Performed By: #### L ACDS #### [facility] [address] [place] [address] [place], [place] 6138783 Credit Risk Management Director: Ayden Regan MD Clarity (U) Clear Normal CLEAR [facility] Comment on above: Performed By: #### L ACDS #### [facility] [address] [place], [place] 8737983 Credit Risk Management Director: Ayden Regan MD Color (U) Yellow Normal YEL [facility] Comment on above: Performed By: #### L ACDS #### [facility] [address] [place], [place] 7554883 Credit Risk Management Director: Ayden Regan MD Epithelial cells LM Ql (Urine sed) 0 TO 2 Normal 0-25 [facility] Comment on above: Performed By: #### L ACDS #### [facility] [address] [place] [address] Dr. [place], [place] 3865183 Credit Risk Management Director: Ayden Regan MD Glucose Ql (U) Negative Normal NEG [facility] Comment on above: Performed By: #### L ACDS #### [facility] [address] [place] [address] [place], [place] 1129283 Credit Risk Management Director: Ayden Regan MD Ketones Ql (U) Negative Normal NEG [facility] Comment on above: Performed By: #### L ACDS #### [facility] [address] [place] [address] [place], [place] 0906583 Credit Risk Management Director: Ayden Regan MD Leukocyte esterase Test strip Ql (U) Negative Normal NEG [facility] Comment on above: Performed By: #### L ACDS #### [facility] [address] [place] [address] [place], [place] 5271283 Credit Risk Management Director: Ayden Regan MD Nitrite,Ur Negative Normal NEG [facility] Comment on above: Performed By: #### L ACDS #### [facility] [address] [place] [address] Dr. [place], [place] 8724183 Credit Risk Management Director: Ayden Regan MD PH,Ur 6.5 Normal 5.0-9.0 [facility] Comment on above: Performed By: #### L ACDS #### [facility] [address] [place], [place] 0700583 Credit Risk Management Director: Ayden Regan MD Protein Ql (U) Negative Normal NEG [facility] Comment on above: Performed By: #### L ACDS #### [facility] [address] [place], [place] 6502083 Credit Risk Management Director: Ayden Regan MD Spec. [place],Ur 1.010 Normal 1.010-1.020 [facility] Comment on above: Performed By: #### L ACDS #### [facility] [address] [place] [address] Dr. [place], [place] 0355383 Credit Risk Management Director: Ayden Regan MD Urine RBC's None Normal 0-2 [facility] Comment on above: Performed By: #### L ACDS #### [facility] [address] [place] [address] Dr. [place], [place] 5965783 Credit Risk Management Director: Ayden Regan MD Urine WBC's None Normal 0-5 [facility] Comment on above: Performed By: #### L ACDS #### [facility] [address] [place] [address] Dr. [place], [place] [phone] Credit Risk Management Director: Ayden Regan MD Urobilinogen,Ur Normal Normal 0.0-1.0 [facility] Comment on above: Performed By: #### L ACDS #### [facility] [address] [place] [address] [place], [place] [phone] Credit Risk Management Director: Ayden Regan MD XR CHEST PORTABLEon 10-26-19 [...] Ayden Siegel MD 10/26/23 Final result Normal [facility] ACID FAST SMEAR AND CXon Acid Fast Culture Negative Normal [facility] Comment on above: Result Comment: No a broderick fast bacilli isolated after 6 weeks. Performed By: #### A FB #### [facility] [address] [place] [address] Dr. Shari Allen Acid Fast Smear Negative Normal [facility] Comment on above: Performed By: #### A FB #### [facility] [address] [place] [address] Dr. Shari [employer] Specimen Processing Concentration Normal [facility] Comment on above: Performed By: #### A FB #### [facility] [address] [place] [address] Dr. Shari Allen FUNGAL CULTUREon 2022 Fungus (Mycology) Culture Final report [facility] Comment on above: Performed By: #### C XFUN #### [facility] [address] [place] [address] Dr. Shari Allen Fungus Stain Final report Normal [facility] Comment on above: Performed By: #### C XFUN #### [facility] [address] [place] [address] Dr. Shari Allen Result 1 Comment Normal [facility] Comment on above: Result Comment: CHINO/ Calcofluor preparation: no fungus observed. Performed By: #### C XFUN #### [facility] [address] [place] [address] Dr. Shari Allen Result Comment: No y east or mold isolated after 4 weeks. CULTURE ANAEROBICon 10-23-19 23 CULTURE ANAEROBIC Culture Observations : NO GROWTH OF ANAEROBES AT 72 HOURS. Normal [facility] Comment on above: Performed By: #### C XFUN #### [facility] [address] [address] [address] Shari Allen CULTURE OTHERon 10-22-2022 CULTURE OTHER Culture Observations : Light growth of NORMAL SKIN MARTHA. Culture Observations: NO GROWTH OF ANAEROBES AT 72 HOURS. Normal [facility] Comment on above: Performed By: #### C XFUN #### [facility] [address] [address] [address] Shari Allen GRAM STAINon 10-22-2022 COMMENTS NO ORGANISMS OBSERVED Normal [facility] Comment on above: Performed By: #### G STAIN #### [facility] [address] [place] [address] Dr. Shari Allen DIPHTHEROIDS Normal [facility] Comment on above: Performed By: #### G STAIN #### [facility] [address] [place] [address] Dr. Shari Allen EPITHELIALS [facility] Comment on above: Performed By: #### G STAIN #### [facility] [address] [place] [address] Dr. Shari Allen FUNGAL ELEMENTS Normal [facility] Comment on above: Performed By: #### G STAIN #### [facility] [address] [place] [address] Dr. Shari YEPEZ NEG BACILLI [facility] Comment on above: Performed By: #### G STAIN #### [facility] [address] [place] [address] Dr. Shari Allen GRAM NEG DIPPLOCOCCI Normal [facility] Comment on above: Performed By: #### G STAIN #### [facility] [address] [place] [address] Dr. Shari YEPEZ POS BACILLI Normal [facility] Comment on above: Performed By: #### G STAIN #### [facility] [address] [place] [address] Dr. Shari Allen GRAM POSITIVE COCCI Normal [facility] Comment on above: Performed By: #### G STAIN #### [facility] [address] [place] [address] Dr. Shari Allen GRAM STAIN SOURCE Rt 2nd Toe Normal [facility] Comment on above: Performed By: #### G STAIN #### [facility] [address] [address] [address] Shari Allen GS_DIPTH Normal [facility] Comment on above: Performed By: #### G STAIN #### [facility] [address] [place] [address] Dr. Shari Allen WBC RARE Normal [facility] Comment on above: Performed By: #### G STAIN #### [facility] [address] [address] [address] Shari Allen POINT OF CARE GLUCOSEon 04-0 Glucose [Mass/Vol] 109 mg/dL Critically high 74-106 [facility] Comment on above: Performed By: #### P OCGLUC #### [facility] [address] [place] [address] Dr. Shari Allen Glucose [Mass/Vol] 89 mg/dL Normal 74-106 [facility] Comment on above: Performed By: #### P OCGLUC #### [facility] [address] [place] [address] Dr. Shari Allen PROF CHEM 8 (BAS METB)on Anion gap [Moles/Vol] 12.2 mmol/L Normal [facility] Comment on above: Performed By: #### B MP #### [facility] [address] [place] [address] Dr. Shari Allen Calcium [Mass/Vol] 9.3 mg/dL Normal 8.5-10.1 [facility] Comment on above: Performed By: #### B MP #### [facility] [address] [place] [address] Dr. Shari Allen Chloride [Moles/Vol] 104 mmol/L Normal 98-107 [facility] Comment on above: Performed By: #### B MP #### [facility] [address] [place] [address] Dr. Shari Allen CO2 [Moles/Vol] 28.5 mmol/L Normal 21.0-32.0 [facility] Comment on above: Performed By: #### B MP #### [facility] [address] [address] [address] Shari Allen Creatinine [Mass/Vol] 0.83 mg/dL Normal 0.55-1.02 [facility] Comment on above: Performed By: #### B MP #### [facility] [address] [place] [address] Dr. Shari Allen EGFR-AF TAJIK >60 Normal >=60 [facility] Comment on above: Performed By: #### B MP #### [facility] [address] [address] [address] Shari Allen EGFR-NON AF TAJIK >60 Normal >=60 [facility] Comment on above: Performed By: #### B MP #### [facility] [address] [address] [address] Shari Allen Glucose [Mass/Vol] 89 mg/dL Normal 74-106 [facility] Comment on above: Performed By: #### B MP #### [facility] [address] [place] [address] Dr. Shari Allen Potassium [Moles/Vol] 3.7 mmol/L Normal 3.5-5.1 [facility] Comment on above: Performed By: #### B MP #### [facility] [address] [address] [address] Shari Allen Sodium [Moles/Vol] 141 mmol/L Normal 136-145 [facility] Comment on above: Performed By: #### B MP #### [facility] [address] [place] [address] Dr. Shari Allen Urea nitrogen [Mass/Vol] 18.0 mg/dL Normal 7.0-18.0 [facility] Comment on above: Performed By: #### B MP #### [facility] [address] [place] [address] Dr. Shari Allen Urea nitrogen/Creatinine [Mass ratio] 21.7 mg/mg Normal [facility] Comment on above: Performed By: #### B MP #### [facility] [address] [place] [address] Dr. Shari Allen POINT OF CARE GLUCOSEon 04-22 Glucose [Mass/Vol] 86 mg/dL Normal 74-106 [facility] Comment on above: Performed By: #### P OCGLUC #### [facility] [address] [place] [address] Dr. Shari Allen Glucose [Mass/Vol] 95 mg/dL Normal 74-106 [facility] Comment on above: Performed By: #### P OCGLUC #### [facility] [address] [place] [address] Dr. Shari Allen CBC AUTO DIFFon 05-07-2022 BASO # 0.0 103/ul Normal 0.0-0.1 [facility] Comment on above: Performed By: #### C BC #### [facility] [address] [place] [address] Dr. Shari Allen Basophils/100 WBC (Bld) 0.5 % Normal 0.2-2.0 [facility] Comment on above: Performed By: #### C BC #### [facility] [address] [place] [address] Dr. Shari Allen EO # 0.2 103/ul Normal 0.0-0.7 [facility] Comment on above: Performed By: #### C BC #### [facility] [address] [place] [address] Dr. Shari Allen Eosinophils/100 WBC (Bld) 2.9 % Normal 0.9-7.0 [facility] Comment on above: Performed By: #### C BC #### [facility] [address] [place] [address] Dr. Shari Allen Erythrocyte distribution width (RBC) [Ratio] 12.6 % Normal 11.0-15.0 [facility] Comment on above: Performed By: #### C BC #### [facility] [address] [place] [address] Dr. Shari Allen Hematocrit (Bld) [Volume fraction] 38.2 % Normal 36.0-48.0 [facility] Comment on above: Performed By: #### C BC #### [facility] [address] [place] [address] Dr. Shari Allen Hemoglobin (Bld) [Mass/Vol] 12.4 g/dL Normal 12.0-16.0 [facility] Comment on above: Performed By: #### C BC #### [facility] [address] [place] [address] Dr. Shari Allen IG # 0.01 10e3/ul Normal 0.00-0.03 [facility] Comment on above: Performed By: #### C BC #### [facility] [address] [place] [address] Dr. Shari lAlen IG % 0.2 % Normal 0.0-0.5 [facility] Comment on above: Performed By: #### C BC #### [facility] [address] [place] [address] Dr. Shari Allen LYMPH # 2.0 103/ul Normal 1.2-3.8 [facility] Comment on above: Performed By: #### C BC #### [facility] [address] [place] [address] Dr. Shari Allen Lymphocytes/100 WBC (Bld) 31.7 % Normal 20.5-60.0 [facility] Comment on above: Performed By: #### C BC #### [facility] [address] [place] [address] Dr. Shari Allen MANUAL DIFF REQ NO Normal [facility] Comment on above: Performed By: #### C BC #### [facility] [address] [place] [address] Dr. Shari Allen MCH (RBC) [Entitic mass] 30.7 pg Normal 26.7-34.0 [facility] Comment on above: Performed By: #### C BC #### [facility] [address] [place] [address] Dr. Shari Allen MCHC (RBC) [Mass/Vol] 32.5 g/dL Normal 29.9-35.2 [facility] Comment on above: Performed By: #### C BC #### [facility] [address] [place] [address] Dr. Shari Allen MCV (RBC) [Entitic vol] 94.6 fL Normal 81.0-99.0 [facility] Comment on above: Performed By: #### C BC #### [facility] [address] [address] [address] Shari Allen MONO # 0.5 103/ul Normal 0.3-0.8 [facility] Comment on above: Performed By: #### C BC #### [facility] [address] [address] [address] Shari Allen Monocytes/100 WBC (Bld) 8.6 % Normal 1.7-12.0 [facility] Comment on above: Performed By: #### C BC #### [facility] [address] [place] [address] Dr. Shari Allen NEUT # 3.5 103/ul Normal 1.4-6.5 [facility] Comment on above: Performed By: #### C BC #### [facility] [address] [place] [address] Dr. Shari Allen Neutrophils/100 WBC (Bld) 56.1 % Normal 43.0-75.0 [facility] Comment on above: Performed By: #### C BC #### [facility] [address] [place] [address] Dr. Shari Allen Platelet mean volume (Bld) [Entitic vol] 8.5 fL Critically low 9.5-13.5 [facility] Comment on above: Performed By: #### C BC #### [facility] [address] [place] [address] Dr. Shari Allen PLT 304 103/ul Normal 150-450 [facility] Comment on above: Performed By: #### C BC #### [facility] [address] [place] [address] Dr. Shari Allen RBC 4.04 106/ul Critically low 4.20-5.40 [facility] Comment on above: Performed By: #### C BC #### [facility] [address] [place] [address] Dr. Shari Allen WBC 6.2 103/ul Normal 4.0-11.0 [facility] Comment on above: Performed By: #### C BC #### [facility] [address] [place] [address] Dr. Shari Allen Covid-19 PCR ([facility])on 04-21 SARS-CoV-2 (COVID-19) RNA LEANN+probe Ql (Unsp spec) Not detected Normal NOT DETECTED [facility] Comment on above: Result Comment: This test is not yet approved or cleared by the [place] FDA. When there are no FDA-approved or cleared tests available, and other criteria are met, FDA can make tests available under an emergency access mechanism called an Emergency Use Authorization (EUA). The EUA for this test is supported by the [place] of Health and Human Service's (HHS's) declaration [...] SARS-CoV-2. Performed By: #### C XFUN #### [facility] [address] [place] [address] Dr. Shari Allen PROF CHEM 8 (BAS METB)on Anion gap [Moles/Vol] 11.1 mmol/L Normal [facility] Comment on above: Performed By: #### B MP #### [facility] [address] [place] [address] Dr. Shari Allen Calcium [Mass/Vol] 9.0 mg/dL Normal 8.5-10.1 [facility] Comment on above: Performed By: #### B MP #### [facility] [address] [place] [address] Dr. Shari Allen Chloride [Moles/Vol] 104 mmol/L Normal 98-107 [facility] Comment on above: Performed By: #### B MP #### [facility] [address] [address] [address] Shari Allen CO2 [Moles/Vol] 29.7 mmol/L Normal 21.0-32.0 [facility] Comment on above: Performed By: #### B MP #### [facility] [address] [address] [address] Shari Allen Creatinine [Mass/Vol] 0.80 mg/dL Normal 0.55-1.02 [facility] Comment on above: Performed By: #### B MP #### [facility] [address] [address] [address] Shari Allen EGFR-AF TAJIK >60 Normal >=60 [facility] Comment on above: Performed By: #### B MP #### [facility] [address] [address] [address] Shari Allen EGFR-NON AF TAJIK >60 Normal >=60 [facility] Comment on above: Performed By: #### B MP #### [facility] [address] [address] [address] Shari Allen Glucose [Mass/Vol] 87 mg/dL Normal 74-106 [facility] Comment on above: Performed By: #### B MP #### [facility] [address] [address] [address] Shari Allen Potassium [Moles/Vol] 3.8 mmol/L Normal 3.5-5.1 [facility] Comment on above: Performed By: #### B MP #### [facility] [address] [address] [address] Shari Allen Sodium [Moles/Vol] 141 mmol/L Normal 136-145 [facility] Comment on above: Performed By: #### B MP #### [facility] [address] [address] [address] Shari Allen Urea nitrogen [Mass/Vol] 14.0 mg/dL Normal 7.0-18.0 [facility] Comment on above: Performed By: #### B MP #### [facility] [address] [address] [address] Shari Allen Urea nitrogen/Creatinine [Mass ratio] 17.5 mg/mg Normal [facility] Comment on above: Performed By: #### B #### [facility] [address] [address] [address] Shari Allen Vital Signs Date Time Vital Sign Value Performing Clinician Fox romero 02-23-2025 [id number]:110400 Body height 180.3 cm Incky Hemmer PA Work Phone: [facility] 02-23-2025 10:11-0400 Body mass index (BMI) [Ratio] 20.33 kg/m2 Nicky Hemmer PA Work Phone: [facility] 02-23-2025 10:11040 Body weight 66.13 kg Nicky Hemmer PA Work Phone: [facility] 02-23-2025 10:11-0400 Diastolic blood pressure 82 mm[Hg] Nicky Hemmer PA Work Phone: [facility] 02-23-2025 10:11-0400 Heart rate 71 /min Nicky Hemmer PA Work Phone: [facility] 02-23-2025 10:11-0400 Respiratory rate 16 /min Nicky Hemmer PA Work Phone: [facility] 02-23-2025 10:11-0400 SaO2% (BldA) [Mass fraction] 96 % Nicky Hemmer PA Work Phone: [facility] 02-23-2025 10:11-0400 Systolic blood pressure 136 mm[Hg] Nicky Hemmer PA Work Phone: [facility] 11-11-2024 09:29-0400 Body height 180.3 cm Tsering Starr TITLE SUPERVISOR Work Phone: [facility] 11-11-2024 09:29-0400 Body mass index (BMI) [Ratio] 20.73 kg/m2 Tsering Starr TITLE SUPERVISOR Work Phone: [facility] 11-11-2024 09:29-0400 Body weight 67.41 kg Tsering Starr TITLE SUPERVISOR Work Phone: [facility] 11-11-2024 09:29-0400 Diastolic blood pressure 82 mm[Hg] Tsering Starr TITLE SUPERVISOR Work Phone: [facility] 11-11-2024 09:29-0400 Heart rate 64 /min Tsering Starr TITLE SUPERVISOR Work Phone: [facility] 11-11-2024 09:29-0400 Respiratory rate 16 /min Tsering Dg TITLE SUPERVISOR Work Phone: [facility] 11-11-2024 09:29-0400 SaO2% (BldA) [Mass fraction] 95 % Tsering Starr TITLE SUPERVISOR Work Phone: [facility] 11-11-2024 09:29-0400 Systolic blood pressure 142 mm[Hg] Tsering Starr TITLE SUPERVISOR Work Phone: [facility] 07-30-2024 09:10-0500 Body height 180.3 cm Nicky Hemmer PA Work Phone: [facility] 07-30-2024 09:10-0500 Body mass index (BMI) [Ratio] 19.67 kg/m2 Nicky Hemmer PA Work Phone: [facility] 07-30-2024 09:10-0500 Body weight 63.96 kg Nicky Hemmer PA Work Phone: [facility] 07-30-2024 09:10-0500 Diastolic blood pressure 76 mm[Hg] Nicky Hemmer PA Work Phone: [facility] 07-30-2024 09:10-0500 Heart rate 64 /min Nicky Hemmer PA Work Phone: [facility] 07-30-2024 09:10-0500 Respiratory rate 16 /min Nicky Hemmer PA Work Phone: [facility] 07-30-2024 09:10-0500 SaO2% (BldA) [Mass fraction] 99 % Nicky Hemmer PA Work Phone: [facility] 07-30-2024 09:10-0500 Systolic blood pressure 118 mm[Hg] Nicky Hemmer PA Work Phone: [facility] 05-04-2024 15:10-0400 Body height 180.3 cm Kvng Linton MD Work Phone: [facility] 05-04-2024 15:10-0400 Body mass index (BMI) [Ratio] 19.25 kg/m2 Kvng Linton MD Work Phone: [facility] 05-04-2024 15:10-0400 Body weight 62.6 kg Kvng Linton MD Work Phone: [facility] 05-04-2024 15:10-0400 Diastolic blood pressure 74 mm[Hg] Kvng Linton MD Work Phone: [facility] 05-04-2024 15:10-0400 Heart rate 77 /min Kvng Linton MD Work Phone: [facility] 05-04-2024 15:10-0400 SaO2% (BldA) [Mass fraction] 100 % Kvng Linton MD Work Phone: [facility] 05-04-2024 15:10-0400 Systolic blood pressure 128 mm[Hg] Kvng Linton MD Work Phone: [facility] 09-04-2023 11:26-0500 Body height 180.3 cm Kvng Linton MD Work Phone: [facility] 09-04-2023 11:26-0500 Body mass index (BMI) [Ratio] 19.8 kg/m2 Kvng Linton MD Work Phone: [facility] 09-04-2023 11:26-0500 Body weight 64.41 kg Kvng Linton MD Work Phone: [facility] 09-04-2023 11:26-0500 Diastolic blood pressure 62 mm[Hg] Kvng Linton MD Work Phone: [facility] 09-04-2023 11:26-0500 Heart rate 61 /min Kvng Linton MD Work Phone: [facility] 09-04-2023 11:26-0500 SaO2% (BldA) [Mass fraction] 99 % Kvng Linton MD Work Phone: [facility] 09-04-2023 11:26-0500 Systolic blood pressure 106 mm[Hg] Kvng Linton MD Work Phone: [facility] Encounters Encounter Date Encounter Type Care Provider Facility Start: 03-16-2025 End: 03-16-2025 ambulatory KATLIN ROMERO Not Available Start: 03-16-2025 End: 03-16-2025 Postop follow up visit related to original px Katlin Romero MD Work Phone: [facility] Comment on above: Encounter for remova l of sutures Start: 03-16-2025 End: 03-16-2025 Bamboo flowsheet Katlin Romero MD Work Phone: [facility] Start: 03-16-2025 End: 03-16-2025 Bamboo flowsshelly Romero MD Work Phone: [facility] Start: 03-02-2025 End: 03-02-2025 Patient encounter procedure Katlin Romero MD Work Phone: [facility] Comment on above: Epidermal inclusion cyst (Primary Dx); Pain Start: 03-02-2025 End: 03-02-2025 ambulatory KATLIN ROMERO Not Available Start: 03-02-2025 End: 03-02-2025 Bamboo flowsheet Katlin Romero MD Work Phone: [facility] Start: 03-02-2025 End: 03-02-2025 Bamboo flowsheet Katlin Romero MD Work Phone: [facility] Start: 02-23-2025 End: 02-23-2025 Bamboo flowsheet Nicky TURNER Work Phone: [facility] [place] [facility] Start: 02-23-2025 End: 02-23-2025 Bamboo flowsheet Nicky TURNER Work Phone: [facility] [place] [facility] Start: 02-23-2025 End: 02-23-2025 Patient encounter procedure Nicky TURNER Work Phone: [facility] [place] [facility] Comment on above: Medicare [facility], subsequent (Primary Dx); ACP (advance [...] 11-11-2024 End: 11-11-2024 Bamboo flowsheet Tsering Starr TITLE SUPERVISOR Work Phone: [facility] Start: 11-11-2024 End: 11-11-2024 Bamboo flowsheet Tsering Starr TITLE SUPERVISOR Work Phone: [facility] Start: 11-11-2024 End: 11-11-2024 Office outpatient visit 25 minutes Tsering Starr TITLE SUPERVISOR Work Phone: [facility] Comment on above: Essential (primary) hypertension (CMS/HCC) (Primary Dx); Rheumatoid arthritis, unspecified; Infected sebaceous gland Start: 11-11-2024 End: 11-11-2024 ambulatory TSERING STARR Not Available Start: 09-18-2024 End: 09-18-2024 Refill Kvng Linton MD Work Phone: [facility] Comment on above: Primary osteoarthrit is, unspecified site; Inflammatory and toxic neuropathy (CMS/HCC); Neurogenic pain Start: 08-25-2024 End: 08-31-2024 Telephone encounter iNcky TURNER Work Phone: [facility] Start: [...] Evaluation and management of inpatient BRITTANY DEGROOT [facility] Start: 03-13-2024 End: 03-14-2024 Evaluation and management of inpatient [facility] Start: 03-13-2024 End: 03-13-2024 Evaluation and management of inpatient [facility] Start: 03-05-2024 End: 03-05-2024 ambulatory KVNG LINTON [facility] Start: 02-25-2024 End: 02-25-2024 ambulatory SEBASTIAN LAWSON [facility] Start: 02-12-2024 End: 02-12-2024 ambulatory [facility] Start: 01-16-2024 End: 01-16-2024 ambulatory [facility] Start: 12-20-2023 End: 12-20-2023 Evaluation and management of inpatient AYDEN LAN [facility] Start: 12-19-2023 End: 12-20-2023 Evaluation and management of inpatient [facility] Start: 11-28-2023 End: 11-28-2023 ambulatory JESUS Newsome BINGHAM [facility] Start: 10-26-2023 End: 10-27-2023 [facility] Start: 09-05-2023 ambulatory Facility:[facility] Start: 09-04-2023 Bamboo flowsheet Kvng jones MD Work Phone: [facility] Start: 09-04-2023 Bamboo flowsheet Kvng jones MD Work Phone: [facility] Start: 09-04-2023 End: 09-04-2023 Transitional care manage srvc 14 day discharge Kvng iLnton MD Work Phone: [facility] Comment on above: TIA (transient ische gilberto attack) (Primary Dx); Urinary frequency; Dyslipidemia (CMS/HCC); Essential hypertension (CMS/HCC) Start: 11-13-2022 End: 11-14-[address] KVNG LINTON Facility:[facility] Start: 11-05-2022 End: 11-06-[address] KVNG LINTON Facility:[facility] Start: 10-22-2022 End: 10-22-[address] KVNG LINTON Facility:[facility] Start: 10-19-2022 Encounter for preprocedural cardiovascular examination [facility] Start: 10-19-2022 Encounter for preprocedural laboratory examination [facility] Start: 10-16-2022 End: 10-17-[address] [...] Dermatology [address] [place] [id number] Katlin Romero MD [address] [place] [address] [facility] Start: 03-02-2025 End: 03-02-2025 Patient encounter procedure [facility] Comment on above: Arrived Start: 02-23-2025 End: 02-23-2025 Patient encounter procedure 02/23/2025 10:00 AM EDT Office Visit [facility] [address] [place] [address] Nicky Riddle PA [address] [place] [address] Arrived [facility] Comment on above: Arrived Start: 02-05-2025 Medicare Annual Wellness (AWV) Medicare Annual Wellness (AWV) [facility] Start: 01-06-2025 End: 01-06-2025 Patient encounter procedure 01/06/2025 11:00 AM EDT Office Visit [facility] [address] [place] [address] Tsering Starr NP [address] [place] [address] [facility] Start: 12-30-2024 End: 12-30-2024 Patient encounter procedure 12/30/2024 12:50 PM EDT Office Visit [facility] [address] [place] [address] Gabriela Gilman, PA [address] [place] [address] Arrived [facility] Comment on above: Arrived Start: 11-23-2024 End: 11-23-2024 Patient encounter procedure 11/23/2024 4:00 PM EDT Office Visit [facility] [address] [place] [address] Kvng Linton MD [address] [place] [address] [facility] Start: 11-11-2024 End: 11-11-2024 Patient encounter procedure 11/11/2024 9:30 AM EDT Office Visit [facility] [address] [place] [address] Tsering Starr NP [address] [place] [address] Arrived [facility] Comment on above: [...] of sepsis Expected: 07/30/2024 (Approximate), Expires: 07/30/2025 [facility] Work Phone: Comment on above: Expected: 07/30/2024 (Approximate), Expi res: 07/30/2025 Start: 07-30-2024 End: 07-30-2025 Comprehensive metabolic 2000 panel - Serum or Plasma Comprehensive metabolic panel Lab Routine Essential (primary) hypertension (CMS/HCC) Expected: 07/30/2024 (Approximate), Expires: 07/30/2025 [facility] Comment on above: Expected: 07/30/2024 (Approximate), Expi res: 07/30/2025 Start: 07-30-2024 End: 07-30-2025 Lipid 1996 panel - Serum or Plasma Lipid panel Lab Routine Essential (primary) hypertension (CMS/HCC) Expected: 07/30/2024 (Approximate), Expires: 07/30/2025 [facility] Comment on above: Expected: 07/30/2024 (Approximate), Expi res: 07/30/2025 Start: 07-30-2024 End: 07-30-2024 Patient encounter procedure 07/30/2024 9:00 AM EST Office Visit [facility] [address] [place] [address] Nicky Riddle PA [address] [place] [address] Arrived [facility] Comment on above: Arrived Start: 05-04-2024 End: 05-04-2024 Patient encounter procedure 05/04/2024 3:15 PM EDT Office Visit [facility] [address] [place] [address] Kvng Linton MD [address] [place] [address] Arrived [facility] Comment on above: Arrived Start: 03-22-2024 Influenza vaccination Influenza Vaccine (#1) [facility] Start: 09-04-2023 End: 09-04-2025 Echocardiogram 2D complete Echocardiogram 2D complete Echocardiography Routine TIA (transient ischemic attack) Expected: 09/04/2023 (Approximate), Expires: 09/04/2025 [facility] Work Phone: Comment on above: Expected: 09/04/2023 (Approximate), Expi res: 09/04/2025 Start: 09-04-2023 End: 09-04-2023 Patient encounter procedure 09/04/2023 11:30 AM EST Office Visit [facility] [address] [facility] [address] [place] [address] Kvng Linton MD [address] [facility] [address] [place] [address] Arrived [facility] Comment on above: Arrived Start: 05-07-2023 Medicare Annual Wellness (AWV) Medicare Annual Wellness (AWV) [facility] Start: 03-22-2023 Influenza vaccination Influenza Vaccine (#1) [facility] Start: 1945 Screening for malignant neoplasm of colon [facility] Dermatopathology exam Dermatopat hology exam Pathology and Cytology Timed Epidermal inclusion cyst Release Upon Ordering for 1 Occurrences starting 03/02/2025 [facility] Work Phone: Comment on above: Release Upon Ordering for 1 Occurrences starting 03/02/2025 Immunizations Immunization Date Immunization Notes Care Provider [facility] 07-05-2022 Influenza, High-dose Seasonal, Quadrivalent, Preservative Free Kvng Linton MD Work Phone: [facility] 07-05-2022 influenza virus vacc ine, unspecified formulation Kvng Linton MD Work Phone: [facility] 05-03-2021 influenza, high dose seasonal, preservative-free Kvng Linton MD Work Phone: [facility] 04-12-2020 Influenza, High-dose Seasonal, Quadrivalent, Preservative Free Kvng Linton MD Work Phone: [facility] 04-12-2020 pneumococcal conjuga te vaccine, 13 valjose Linton MD Work Phone: [facility] 04-05-2020 influenza, high dose seasonal, preservative-free Kvng Linton MD Work Phone: [facility] 04-05-2020 pneumococcal polysaccharide vaccine, 23 valjose Linton MD Work Phone: [facility] 07-02-2019 influenza, high dose seasonal, preservative-free Kvng Linton MD Work Phone: [facility] 06-05-2018 Influenza, injectabl e, Madin [place] Canine Kidney, preservative free, quadrivalent Kvng Linton MD Work Phone: [facility] 04-23-2018 seasonal influenza, intradermal, preservative free Kvng Linton MD Work Phone: [facility] 04-23-2016 influenza, injectabl e, quadrivalent, contains preservative Kvng Linton MD Work Phone: [facility] 11-16-2013 pneumococcal polysaccharide vaccine, 23 valent Kvng Linton MD Work Phone: [facility] 01-21-2012 tetanus toxoid, redu nithin diphtheria toxoid, and acellular pertussis vaccine, adsorbed Kvng Linton MD Work Phone: [facility] Payers Date Payer Category Payer Medicare [id number] 2023 Medicare (Managed Care) RASHID LU [id number] 2023 Medicare [id number] 2013 Medicare [id number]. [id number] 1959 Medicare [id number] 1959 Unknown [id number] 1947 Unknown [id number] 2.16.840.1.711066.3.579.2. 593 1947 Unknown [id number] 2.16.840.1.543719.3.579.2. 593 1947 Unknown [id number] 2.16.840.1.858433.3.579.2. 593 1947 Unknown [id number] 2.16.840.1.720899.3.579.2. 593 1947 Unknown [id number] 2.16.840.1.111696.3.579.2. 593 1947 Unknown [id number] 2.16840.1.170515.3.579.2. 593 1947 Unknown [id number] 2.16.840.1.626296.3.579.2. 593 1947 Unknown [id number] 2.16.840.1.303546.3.579.2. 593 1947 Unknown [id number] 2.16.840.1.017970.3.579.2. 593 1947 Unknown [id number] 2.16.840.1.938320.3.579.2. 593 1947 Unknown [id number] 2.16.840.1.578650.3.579.2. 593 1947 Unknown [id number] 2.16.840.1.720178.3.579.2. 593 1947 Unknown [id number] 2.16.840.1.128301.3.579.2. 593 1947 Unknown [id number] 2.16.840.1.856837.3.579.2. 593 1947 Unknown [id number] 2.16.840.1.980367.3.579.2. 593 1947 Unknown [id number] 2.16.840.1.807767.3.579.2. 593 1947 Unknown [id number] 2.16.840.1.933609.3.579.2. 593 1947 Unknown [id number] 2.16.840.1.812631.3.579.2. 593 1947 Unknown [id number] 2.16.840.1.457269.3.579.2. 593 1947 Unknown [id number] 2.16.840.1.332433.3.579.2. 593 1947 Unknown [id number] 2.16840.1.624098.3.579.2. 593 1947 Unknown [id number] 2.16840.1.493105.3.579.2. 593 1947 Unknown [id number] 2.16840.1.391798.3.579.2. 593 1947 Unknown [id number] 2.16.840.1.508721.3.579.2. 593 1947 Unknown [id number] 2.16840.1.324836.3.579.2. 593 1947 Unknown [id number] 2.16.840.1.263078.3.579.2. 173 1947 Unknown [id number] 2.16.840.1.832629.3.579.2. 1286 1947 Unknown [id number] 2.16.840.1.801913.3.579.2. 1286 1947 Unknown [id number] 2.16.840.1.660345.3.579.2. 1286 8 Unknown [id number] 2.16.840.1.298444.3.579.2. 1285 1947 Unknown [id number] 2.16.840.1.508407.3.579.2. 1285 1947 Unknown [id number] 2.16.840.1.567338.3.579.2. 1285 1947 Unknown [id number] 2.16.840.1.818099.3.579.2. 1285 1947 Unknown [id number] 2.16.840.1.017010.3.579.2. 1285 1947 Unknown [id number] 2.16.840.1.163890.3.579.2. 1285 1947 Unknown [id number] 2.16840.1.951913.3.579.2. 1285 1947 Unknown [id number] 2.16840.1.546773.3.579.2. 1285 1947 Unknown [id number] 2.16840.1.642495.3.579.2. 1285 1947 Unknown [id number] 2.16840.1.883406.3.579.2. 1285 1947 Unknown [id number] 2.840.1.723356.3.579.2. 1258 1947 Unknown [id number] 2.16.840.1.947510.3.579.2. 1258 1947 Unknown [id number] 2.16.840.1.801195.3.579.2. 1258 1947 Unknown [id number] 2.16.840.1.452161.3.579.2. 1258 1947 Unknown [id number] 2.16840.1.030785.3.579.2. 1258 1947 Unknown [id number] 2.16840.1.502047.3.579.2. 1259 1947 Unknown [id number] 2.16.840.1.171994.3.579.2. 1259 Social History Date Type Detail Facility Start: 03-12-2023 End: 11-11-2024 Tobacco smoking status PRIS Ex-smoker [facility] Start: 07-30-1965 End: 07-22-1992 History of tobacco use Current smoker [facility] Start: 07-30-1965 End: 07-22-1992 History of tobacco use Cigarette Smoker [facility] Start: 03-12-2023 End: 11-11-2024 Tobacco use and exposure Smokeless tobacco non-user [facility] Start: 08-30-2023 End: 09-04-2023 Alcohol intake Not Asked [facility] Start: 03-12-2023 End: 03-05-2024 History of Social function [facility] Work Phone: Start: 03-12-2023 End: 03-05-2024 Tobacco use panel [facility] Work Phone: Start: 03-14-2023 Alcohol Comment caffeine intak e: more than 4 cups per day. [facility] Start: 1945 Sex Assigned At Not on file N [facility] Start: 03-31-2024 End: 03-16-2025 Alcoholic beverage [...] got money to buy more. Never true [facility] In the past 12 month s, was there a time when you were not able to pay the mortgage or rent on time? No [facility] Functional Status Date Assessment Result Facility 02-23-2025 Patient Health [facility] ionnaire 2 item (PHQ-2) [Reported] [facility] 11-11-2024 Patient Health [facility] ionnaire 2 item (PHQ-2) [Reported] [facility] Clinical Notes 02-26-2022 to 03-16-2025 Katlin Romero [...] Visit: As needed documented in this encounter [facility] 03-02-2025 History of Present illness Narrative Images [...] days for s/r documented in this encounter [facility] 02-23-2025 History of Present illness Narrative Images [...] Do you have a medical power of yard inspector?: No Current Outpatient Medications on File Prior [...] a living will and durable power of yard inspector for healthcare. We discussed telling yoder people [...] Nicky POTTS, KRISTOFERC documented in this encounter [facility] 12-30-2024 History of Present illness Narrative Images [...] Visit: 03/02/2025, excision documented in this encounter [facility] 11-11-2024 History of Present illness Narrative Images [...] follow-ups on file. documented in this encounter [facility] 08-31-2024 Telephone encounter Note Acknowledged. [facility] 08-31-2024 Miscellaneous Notes Acknowledged. Patient was contacted by JOCE Castro for a sleep study and at this time she wants to cancel the study, for she doesn't feel it is necessary. documented in this encounter [facility] 08-31-2024 Telephone encounter Note Acknowledged. [facility] 08-31-2024 Miscellaneous Notes Acknowledged. Hi, this is Be patient point of care specialist with Joce. Matthew, I was just calling [...] call me at my cell phone number. [phone], thank you. documented in this encounter [facility] 08-25-2024 Telephone encounter Note Patient was contacted by JOCE Castro for a sleep study and at this time she wants to cancel the study, for she doesn't feel it is necessary. [facility] 08-25-2024 Telephone encounter Note Hi, this is Be patient point of care specialist with Joce. Matthew, I was just calling [...] call me at my cell phone number. [phone], thank you. [facility] 07-30-2024 History of Present illness Narrative Images [...] 08/27/2024) for Recheck. documented in this encounter [facility] 05-08-2024 Telephone encounter Note Sent. [facility] 05-08-2024 Miscellaneous Notes Sent. documented in this encounter [facility] 05-04-2024 History of Present illness Narrative Images [...] for Routine F/U. documented in this encounter [facility] 04-06-2024 Telephone encounter Note Patient came in [...] OTC 1 hour prior to each pill. [facility] 04-06-2024 Miscellaneous Notes Patient came in with [...] to each pill. documented in this encounter [facility] 09-04-2023 History of Present illness Narrative Subjective Patient ID: Berenice Silva is a 77 y.o. female who presents for Follow-up ([facility] stay admitted 08/24/23 dx: TIA discharged home 08/25/23 advised to take ASA 325mg). Flowsheet Row Telephone from 08/30/2023 in [facility] with Kvng Linton MD Discharge Information ED or Hospital Discharge? Hospital Patient has been contacted within two business days of discharge No Have two attempts been made to contact the patient within two business days of being discharged? No Discharge Date 08/25/23 Discharge Hospital [facility] Discharged To: Home Setting Engagement Call [...] THE MORNING 90 tablet 0 [DISCONTINUED] HYDROcodone-acetaminophen ([place]) 5-325 MG tablet Take 1 tablet by [...] for Test/Lab Review. documented in this encounter [facility] 10-22-2022 Note PROCEDURE: XR FOOT R T [...] authenticated by: HALEIGH FINE Date: 2022-10-22 16:24 [facility] 10-09-2022 Note PROCEDURE: XR FOOT R [...] by: AYDEN SERRA Date: 2022-10-09 14:38 [facility] 09-18-2022 Note PROCEDURE: XR FOOT R [...] authenticated by: AYDEN SERRA Date: 2022-09-18 17:34 [facility] 05-10-2022 Note PROCEDURE: XR FOOT R T 2V COMPARISON: 02/23/2022 HISTORY: Pain FINDINGS: BONES:Stable medial effusion with plates and screws. Stable subtalar fusion. Changing configuration of the lateral sesamoid of the first metatarsal SOFT TISSUES:Negative. No visible soft tissue swelling. EFFUSION:None visible. OTHER: Negative. IMPRESSION: Intraprocedural fluoroscopic images Electronically authenticated by: AYDEN SERRA Date: 2022-05-10 17:33 [facility] 05-10-2022 Note PROCEDURE: XR FOOT R [...] no mechanical failure Electronically authenticated by: AYDEN SERAR Date: 2022-05-10 17:32 [facility] 02-26-2022 Note PROCEDURE: XR FOOT R [...] by: AYDEN SERRA Date: 2022-02-26 07:57 [facility] Evaluation note Diagnosis TIA (transient ischemic [...] To Contact Urology Diagnoses Urinary frequency Procedures [place] OFFICE/OUTPATIENT [facility] 60 MINUTES Kvng Linton MD [address] [address] Vee Hatfield MD [address] [place] [address] Referral ID Status Reason Start Date Expiration Date Visits Requested Visits Authorized [id number] Pending Review Specialty Services Required 09/04/2023 03/02/2024 1 1 * Consultation (Routine) - Pending Review Specialty Diagnoses / Procedures Referred By Contac t Referred To Contact Neurology Diagnoses TIA (transient ischemic attack) Procedures ND OFFICE/OUTPATIENT NEW HIGH MDM 60 MINUTES Kvng Linton MD 112 [facility] [address] [place] [address] Damion Longo MD [address] [place] [address] Referral ID Status Reason Start Date Expiration Date Visits Requested Visits Authorized [id number] Pending Review Specialty Services Required 09/04/2023 03/02/2024 1 1 * Imaging (Routine) - Pending Review Specialty Diagnoses / Procedures Referred By Contac t Referred To Contact Cardiology Diagnoses TIA (transient ischemic attack) Procedures Echocardiogram 2D complete Kvng Linton MD [address] [address] Referral ID Status Reason Start Date Expiration Date Visits Requested Visits Authorized [id number] Pending Review Perform Procedure 09/04/2023 03/02/2024 1 [...] DATE CREATED AUTHOR AUTHOR'S ORGANIZ ATION 09/07/2023 [facility] DATE CREATED AUTHOR AUTHOR'S ORGANIZ ATION 11/01/2023 [facility] DATE CREATED AUTHOR AUTHOR'S ORGANIZ ATION 01/22/2024 [facility] DATE CREATED AUTHOR AUTHOR'S ORGANIZ ATION 02/27/2024 [facility] DATE CREATED AUTHOR AUTHOR'S ORGANIZ ATION 03/15/2024 [facility] DATE CREATED AUTHOR AUTHOR'S ORGANIZ ATION 08/07/2024 [facility] DATE CREATED AUTHOR AUTHOR'S ORGANIZ ATION 03/18/2025 [facility] Care Teams (unrecognized sec tion and content) Mobile Ui Developer Relationship Specialty Start Date End Date Kvng Linton MD [address] [place] [address] PCP - General Internal Medicine 11/27/22 Kvng Linton MD [address] [place] [address] PCP - Rashid GALVEZ 07/22/23 Mobile Ui Developer Relationship Specialty Start Date End Date Kvng Linton MD [address] [place] [place] [address] PCP - General Internal Medicine 11/27/22 Kvng Linton MD [address] [place] [place] [address] PCP - Rashid GALVEZ 07/22/23 Mobile Ui Developer Relationship Specialty Start Date End Date Kvng Linton MD [address] [place] [address] PCP - General Internal Medicine 11/27/22 Kvng Linton MD [address] [place] [address] PCP - Rashid GALVEZ 07/22/23Saturday, MELISSA Boles [address] [place] [address] Licensed Practical Nurse Family Medicine 02/26/24 Mobile Ui Developer Relationship Specialty Start Date End Date Kvng Linton MD [address] [place] [address] PCP - General Internal Medicine 11/27/22 Kvng Linton MD [address] [place] [address] PCP - Rashid GALVEZ 07/22/23Saturday, Elvi, MID LEVEL DEVELOPER [address] [place] [address] Licensed Practical Nurse Family Medicine 02/26/24 Mobile Ui Developer Relationship Specialty Start Date End Date Kvng Linton MD [address] [place] [address] PCP - General Internal Medicine 11/27/22 Kvng Linton MD [address] [place] [address] PCP - Rashid GALVEZ 07/22/23Saturday, Elvi, MID LEVEL DEVELOPER [address] [place] [address] Licensed Practical Nurse Family Medicine 02/26/24 Mobile Ui Developer Relationship Specialty Start Date End Date Kvng Linton MD [address] [place] [address] PCP - General Internal Medicine 11/27/22 Kvng Linton MD [address] [place] [address] PCP Gay Mike MA 07/22/23Saturday, Elvi, MID LEVEL DEVELOPER [address] [place] [address] Licensed Practical Nurse Family Medicine 02/26/24 Mobile Ui Developer Relationship Specialty Start Date End Date Kvng Linton MD [address] [place] [address] PCP - General Internal Medicine 11/27/22SatRowdyElvi byrd LPN [address] [place] [address] Licensed Practical Nurse Family Medicine 02/26/24 08/28/24 Heydi Parker, RN Licensed Practical Nurse Family Medicine 08/28/24 Mobile Ui Developer Relationship Specialty Start Date End Date Kvng Linton MD [address] [place] [address] PCP - General Internal Medicine 11/27/22 Heydi Parker, RN Licensed Practical Nurse Family Medicine 08/28/24 Mobile Ui Developer Relationship Specialty Start Date End Date Kvng Linton MD [address] [place] [address] PCP - General Internal Medicine 11/27/22 Kvng Linton MD [address] [place] [address] PCP - Rashid GALVEZ 07/22/23 Reina Palma LPN 10/06/24 Mobile Ui Developer Relationship Specialty Start Date End Date Kvng Linotn MD [address] [place] [address] PCP - General Internal Medicine 11/27/22 Kvng Linton MD [address] [place] [address] PCP - Rashid GALVEZ 07/22/23 Reina Palma LPN 10/06/24 Mobile Ui Developer Relationship Specialty Start Date End Date Kvng Linton MD [address] [place] [address] PCP - General Internal Medicine 11/27/22 Kvng Linton MD [address] [place] [address] PCP - Rashid MA 07/22/23 Reina Palma LPN 10/06/24 Mobile Ui Developer Relationship Specialty Start Date End Date Kvng Linton MD [address] [place] [address] PCP - General Internal Medicine 11/27/22 Kvng Linton MD [address] [place] [address] PCP - Rashid GALVEZ 07/22/23 Reina Palma LPN 10/06/24 Mobile Ui Developer Relationship Specialty Start Date End Date Kvng Linton MD [address] [place] [address] PCP - General Internal Medicine 11/27/22 Kvng Linton MD [address] [place] [address] PCP - Rashid MA 07/22/23 Reina Palma LPN [address] [place] [address] 10/06/24 Mobile Ui Developer Relationship Specialty Start Date End Date Kvng Linton MD [address] [place] [address] PCP - General Internal Medicine 11/27/22 Kvng Linton MD [address] [place] [address] PCP - Rashid GALVEZ 07/22/23 Reina Palma LPN [address] [place] [address] 10/06/24 Mobile Ui Developer Relationship Specialty Start Date End Date Kvng Linton MD [address] [place] [address] PCP - General Internal Medicine 11/27/22 Kvng Linton MD [address] [place] [address] PCP - Rashid GALVEZ 07/22/23 Reina Palma LPN [address] [place] [address] 10/06/24 Mobile Ui Developer Relationship Specialty Start Date End Date Kvng Linton MD [address] [place] [address] PCP - General Internal Medicine 11/27/22 Kvng Linton MD [address] [place] [address] PCP - Rashid GALVEZ 07/22/23 Reina Palma LPN [address] [place] [address] 10/06/24 Mobile Ui Developer Relationship Specialty Start Date End Date Kvng Linton MD [address] [place] [place] [address] PCP - General Internal Medicine 11/27/22 Kvng Linton MD [address] [facility] [address] [place] [address] PCP - Rashid GALVEZ 07/22/23 Reina Palma LPN [address] [facility] [address] [place] [address] 10/06/24 Mobile Ui Developer Relationship Specialty Start Date End Date Kvng Linton MD [address] [facility] [address] [place] [address] PCP - General Internal Medicine 11/27/22 Kvng Linton MD [address] [facility] [address] [place] [address] PCP - Rashid GALVEZ 07/22/23 Reina Palma LPN [address] [facility] [address] [place] [address] 10/06/24 Reason for Visit (unrecogniz ed section [...] BE BASED ON THE PRIMARY CLINICAL RECORDS. [facility]. provides no warranty or guarantee of the accuracy or completeness of information in this document.
== END 2025-04-07 15:26 | disposition home or self-care (01) ==
LOC: WC 15:25
PROVIDERS: PCP Internal Medicine; Visit Provider Physician Assistant
DX: L97.415 Non-pressure chronic ulcer of right heel and midfoot with muscle involvement without evidence of necrosis (principal)
CPT/HCPCS: 11043

== ENCOUNTER 2025-04-14 09:58 | Outpatient (OUT) | payer MEDICARE, SELFPAY ==
--- OUTSIDE RECORDS SUMMARY | 2024-12-11 10:45 | XMS_ITS ---
Author Organization [facility] Address [address] [place] [address] Care Team Providers Care Patch Finisher Name Role Phone Araceli Woo Primary Care Provider Johanna Wheat Unavailable REASON FOR VISIT FILLING Encounters Encounter Location Date Provider Diagnosis [address] [place] [address] 12/11/2024 Johanna Haynes Plan Of Treatment No Information Progress Notes * JESSICA SILVA EDOB: 8 (79 yo F)Acc No.[id number]:12/11/2024 Patient: VALERIE TOLENTINOMERRILL Perez Provider: Zohra HAYNES DDS :1945 A ge:79 Y S ex:Female Date:12/11/2024 Address:[address] [place], [place] [address] Pcp:Araceli Woo Subjective: * Chief Complaints: * 1 . FILLING. * Medical History: Objective: * Vitals: Assessment: Plan: * Treatment: * Images: * Electronic signature of Caroline Haynes DDS on 04/14/2025 at 10:02 AM EDT Sign off status: Pending * Provider: Zohra HAYNES DDS Date: 0 12/11/2024 Generated for Printi ng/Faxing/eTransmitting on: 0 04/14/2025 10:02 AM EDT
--- OUTSIDE RECORDS SUMMARY | 2024-12-24 10:30 | XMS_ITS ---
Author Organization [facility] Address [address] [place] [address] Care Team Providers Care Carbide Operator Name Role Phone Araceli Woo Primary Care Provider REASON FOR VISIT IMPRESSIONS- DR. Hodge Encounters Encounter Location Date Provider Diagnosis [place] [address] [place] [address] 12/24/2024 Araceli Woo Plan Of Treatment No Information Progress Notes * SHIRAVALERIEON EDOB: 8 (79 yo F)Acc No.[id number]:12/24/2024 Dental Appointment Patient: JESSICA TOLENTINO Provider: Mercedez Woo DDS :1945 A ge:79 Y S ex:Female Date:12/24/2024 Address:[address] [place], [place] [address] Subjective: * Chief Complaints: * 1 . IMPRESSIONS- DR. Strong * Medical History: Objective: * Vitals: Assessment: Plan: * Treatment: * Images: * Electronic signature of Consuelo Woo DDS on 04/14/2025 at 10:02 AM EDT Sign off status: Pending * Provider: Mercedez Woo DDS Date: 12/24/2024 Generated for Percy lou/Hilaria/eTjarochosmitting on: 0 04/14/2025 10:02 AM EDT
--- OUTSIDE RECORDS SUMMARY | 2025-04-02 09:00 | XMS_ITS ---
Author Organization [facility] Serv[facility] Address [address] [place] [address] Care Team Providers Care Truck Caterer Name Role Phone Araceli Woo Primary Care Provider [phone] REASON FOR VISIT FILLING Encounters Encounter Location Date Provider Diagnosis [address] [facility] [place] [address] 04/02/2025 Araceli Woo Plan Of Treatment No Information Progress Notes * SHIRAVALERIEON EDOB: 8 (79 yo F)Acc No.[id number]:04/02/2025 Patient: VALERIE TOLENTINOON Chris Provider: Mercedez Woo DDS :1945 A ge:79 Y S ex:Female Date:04/02/2025 Address:[address] [place], [place] [id number] Subjective: * Chief Complaints: * 1 . FILLING. * Medical History: Objective: * Vitals: Assessment: Plan: * Treatment: * Images: * Electronic signature of Consuelo Woo DDS on 04/14/2025 at 10:03 AM EDT Sign off status: Pending * Provider: Mercedez Woo DDS Date: 04/02/2025 Generated for Percy lou/Farob/eTransmitting on: 04/14/2025 10:03 AM EDT
--- OUTSIDE RECORDS SUMMARY | 2025-04-13 06:40 | XMS_ITS ---
Author Organization [facility] Address [address] [place] [address] Care Team Providers Care Gaming Surveillance Observer Name Role Phone Araceli Woo Primary Care Provider [phone] Edwina Lizeth Dimas [phone] REASON FOR VISIT FILLING Encounters Encounter Location Date Provider Diagnosis [facility] [address] [place] [address] 04/13/2025 Lizeth Dimas Plan Of Treatment No Information Progress Notes * JESSICA SILVA EDOB: 8 (79 yo F)Acc No.[id number]:04/13/2025 Patient: JESSICA TOLENTINO Provider: Chris Dimas :1945 A ge:79 Y S ex:Female Date:04/13/2025 Address:[address] [place], [place] [id number] Pcp:Araceli Woo Subjective: * Chief Complaints: * 1 . FILLING. * Medical History: Objective: * Vitals: Assessment: Plan: * Treatment: * Images: * Electronic signature of Debi Dimas , [id number] on 04/14/2025 at 10:02 AM EDT Sign off status: Pending * Provider: Chris Dimas Date: 04/13/2025 Generated for Soreni ng/Fasusang/eTransmitting on: 04/14/2025 10:02 AM EDT
--- OUTSIDE RECORDS SUMMARY | 2025-04-14 10:02 | XMS_ITS | Encounter Summary ---
Author Organization [facility] Address [address] [place] [address] Care Team Providers Care Appraisal Analyst Name Role Phone Kvng Linton MD Primary Care Provider [phone] Kvng Linton MD Unavailable [phone] Saturday, Elvi FLUORESCENT SOLUTION MIXER Unavailable [phone] Heydi Parker RN Unavailable Palma Reina FLUORESCENT SOLUTION MIXER Unavailable Encounter Details Date Type Department Care Team (Late st Contact Info) Description 02/26/2024 [facility] Only [facility] [address] [place] [address] [place] [address] Unallocated, Noms Lauri, [address] [place], [place] [id number] Social History Tobacco Use Types Packs/Day Years [...] declined 10/30/2023 How often do you attend alevism or jew serv ices? Patient declined 10/30/2023 Do you belong to any clubs o r organizations such as alevism groups, unions, fraternal or athletic groups, or [...] Recorded Patient Health Questionnaire-2 Score 0 02/06/2024 [facility] - Occupational [...] documented as of this encounter Care Teams Appraisal Analyst Relationship Specialty Start Date End Date Kvng Linton MD [address] [facility] [address] [place] [address] PCP - General Internal Medicine 11/27/22 Kvng Linton MD [address] [facility] [address] [place] [address] PCP - Rashid GALVEZ 07/22/23SaturdayElvi LPN [address] [facility] [address] [place] [address] Licensed Practical Nurse Family Medicine 02/26/24 08/28/24 Heydi Parker, FAUSTO [address] [place] [address] Licensed Practical Nurse Family Medicine 08/28/24 10/06/24 Reina Palma LPN 112 [facility] 110 [place] [address] 10/06/24 documented as of this encounter
--- OUTSIDE RECORDS SUMMARY | 2025-04-14 10:02 | XMS_ITS | Encounter Summary ---
Author Organization [facility] Address [address] [place] [address] Care Team Providers Care Sales Agent Insurance Name Role Phone Kvng Linton MD Primary Care Provider [phone] Kvng Linton MD Unavailable [phone] Saturday, Elvi ASSISTANT PROFESSOR OF SOCIOLOGY Unavailable [phone] Heydi Parker RN Unavailable Reina Palma ASSISTANT PROFESSOR OF SOCIOLOGY Unavailable Encounter Details Date Type Department Care Team (Late st Contact Info) Description 08/26/2023 [facility] [address] [facility] [address] [place] [id number] A, Unknown Practice [address] [place], [place] [id number] Social History Tobacco Use Types Packs/Day Years [...] on filedocumented in this encounter Care Teams Sales Agent Insurance Relationship Specialty Start Date End Date Kvng Linton MD [address] [place] [address] PCP - General Internal Medicine 11/27/22 Kvng Linton MD [address] [place] [address] PCP - Rashid GALVEZ 07/22/23SaturdayElvi LPN [address] [place] [address] Licensed Practical Nurse Family Medicine 02/26/24 08/28/24 Heydi Parker, RN [address] [place] [address] Licensed Practical Nurse Family Medicine 08/28/24 10/06/24 Reina Palma LPN [address] [place] [address] 10/06/24 documented as of this encounter
--- OUTSIDE RECORDS SUMMARY | 2025-04-14 10:02 | XMS_ITS | Encounter Summary ---
Author Organization [facility] Address [address] [place] [address] Care Team Providers Care Hot Bread Baker Name Role Phone Kvng Linton MD Primary Care Provider Kvng Linton MD Unavailable [phone] Saturday, Elvi FURNACE BRAZER Unavailable [phone] Heydi Parker RN Unavailable Reina Palma FURNACE BRAZER Unavailable Encounter Details Date Type Department Care Team (Late st Contact Info) Description 02/12/2024 Abstract [facility] [place] [facility] [address] [facility] 110 [place] [address] Kvng Linton MD 112 [facility] 110 [place] [address] Social History Tobacco Use Types [...] declined 10/30/2023 How often do you attend temple or anabaptist serv ices? Patient declined 10/30/2023 Do you belong to any clubs o r organizations such as temple groups, unions, fraternal or athletic groups, or [...] Recorded Patient Health Questionnaire-2 Score 0 02/06/2024 [facility] of Occupat ional [facility] - Occupational Stress Questionnaire Answer Date [...] documented as of this encounter Care Teams Hot Bread Baker Relationship Specialty Start Date End Date Kvng Linton MD [address] [place] [address] PCP - General Internal Medicine 11/27/22 Kvng Linton MD [address] [place] [address] PCP - Rashid GALVEZ 07/22/23SaturdayElvi LPN [address] [place] [address] Licensed Practical Nurse Family Medicine 02/26/24 08/28/24 Heydi Parker RN [address] [place] [address] Licensed Practical Nurse Family Medicine 08/28/24 10/06/24 Reina Palma LPN [address] [place] [address] 10/06/24 documented as of this encounter
--- OUTSIDE RECORDS SUMMARY | 2025-04-14 10:02 | XMS_ITS | Encounter Summary ---
Author Organization [facility] Address [address] [place] [address] Care Team Providers Care Management Trainer Name Role Phone Kvng Linton MD Primary Care Provider Kvng Linton MD Unavailable [phone] Saturday, Elvi FUNERAL PLANNING COUNSELOR Unavailable [phone] Heydi Parker RN Unavailable Reina Palma FUNERAL PLANNING COUNSELOR Unavailable Encounter Details Date Type Department Care Team (Late st Contact Info) Description 12/19/2023 Abstract [facility] [place] [facility] [address] [facility] 110 [place] [address] Kvng Linton MD 112 [facility] 110 [place] [address] Social History Tobacco Use Types [...] declined 10/30/2023 How often do you attend religion or jew serv ices? Patient declined 10/30/2023 Do you belong to any clubs o r organizations such as religion groups, unions, fraternal or athletic groups, or [...] and heating? Not hard at all 10/30/2023 [facility] of Occupat ional Health - Occupational Stress [...] place to sleep or slept in a chcf (including now)? No 10/30/2023 Comments Unknown Sex and Gender Information Value Date Recorded Sex Assigned at Not on file Legal Sex Female 7:12 PM EDT Gender Identity Not on file Sexual Orientation Not on file documented as of this encounter Plan of Treatment Not on file documented as of this encounter Visit Diagnoses Not on filedocumented in this encounter Care Teams Management Trainer Relationship Specialty Start Date End Date Kvng Linton MD [address] [place] [address] PCP - General Internal Medicine 11/27/22 Kvng Linton MD [address] [place] [address] PCP - Rashid GALVEZ 07/22/23SaturdayElvi LPN [address] [place] [address] Licensed Practical Nurse Family Medicine 02/26/24 08/28/24 Heydi Parker, FAUSTO [address] [place] [address] Licensed Practical Nurse Family Medicine 08/28/24 10/06/24 Reina Palma LPN [address] [place] [address] 10/06/24 documented as of this encounter
--- OUTSIDE RECORDS SUMMARY | 2025-04-14 10:02 | XMS_ITS | Encounter Summary ---
Author Organization [facility] Address [address] [place] [address] Care Team Providers Care Tour Escort Name Role Phone Kvng Linton MD Primary Care Provider [phone] Kvng Linton MD Unavailable [phone] Saturday, Elvi VEHICLE RETURN ASSOCIATE Unavailable [phone] Heydi Parker RN Unavailable Reina Palma VEHICLE RETURN ASSOCIATE Unavailable Encounter Details Date Type Department Care Team (Late st Contact Info) Description 03/16/2024 Abstract [facility] [address] [facility] 110 [place] [address] Kvng Linton MD 112 [facility] 110 [place] [address] Social History Tobacco Use Types [...] Recorded Patient Health Questionnaire-2 Score 0 02/06/2024 [facility] of Occupat ional [facility] - Occupational Stress Questionnaire Answer Date Recorded [...] place to sleep or slept in a [place] health care facility (including now)? No 10/30/2023 Housing Stability Vital Sign Answer Kody e Recorded In the last 12 months, was t here a time when you were not able to pay the mortgage or rent on time? No 03/05/2024 In the past 12 months, how m any times have you moved where you were living? 0 03/05/2024 At any time in the past 12 m [facility], were you homeless or living in a [place] health care facility (including now)? No 03/05/2024 Comments Unknown Sex [...] documented as of this encounter Care Teams Tour Escort Relationship Specialty Start Date End Date Kvng Linton MD [address] [place] [address] PCP - General Internal Medicine 11/27/22 Kvng Linton MD [address] [place] [address] PCP - Rashid GALVEZ 07/22/23Saturday, MELISSA Boles [address] [place] [address] Licensed Practical Nurse Family Medicine 02/26/24 08/28/24 Heydi Parker, RN [address] [place] [address] Licensed Practical Nurse Family Medicine 08/28/24 10/06/24 Reina Palma LPN 112 [facility] 110 [place] [address] 10/06/24 documented as of this encounter
--- OUTSIDE RECORDS SUMMARY | 2025-04-14 10:02 | XMS_ITS | Clinical Summary ---
Author Organization [employer] [facility] tem Address [id number] [address] [place] [address] Care Team Providers Care Global Marketing Coordinator Name Role Phone Kvng Linton MD Primary Care Provider [phone] Allergies Active Allergy Reactions Criticality Noted Date [...] history exists Medical Devices Implanted Type Area Station Cashier Device Identifier Shelf Expiration Date Model / Serial / Lot Orthopedic Implant Orthopedic Implant Right: Foot Insurance [employer] MEDICARE Care Teams Global Marketing Coordinator Relationship Specialty Start Date End Date Kvng Linton MD [address] [address] PCP - General Internal Medicine 11/30/20
--- OUTSIDE RECORDS SUMMARY | 2025-04-14 10:02 | XMS_ITS | Encounter Summary ---
Author Organization [facility] Address [address] [place] [address] Care Team Providers Care Massotherapist Name Role Phone Kvng Linton MD Primary Care Provider [phone] Kvng Linton MD Unavailable [phone] Saturday, Elvi SHOP MECHANIC Unavailable [phone] Heydi Parker RN Unavailable [phone] Reina Palma SHOP MECHANIC Unavailable Encounter Details Date Type Department Care Team (Late st Contact Info) Description 02/17/2024 Abstract [facility] [place] [facility] [address] [facility] 110 [place] [address] Kvng Linton MD 112 [facility] 110 [place] [address] Social History Tobacco Use Types [...] How often do you attend worship or taoism serv ices? Patient declined 10/30/2023 Do you [...] Recorded Patient Health Questionnaire-2 Score 0 02/06/2024 [facility] of Occupat ional [facility] [...] a nursing home (including now)? No 10/30/2023 Comments Unknown [...] documented as of this encounter Care Teams Massotherapist Relationship Specialty Start Date End Date Kvng Linton MD [address] [place] [address] PCP - General Internal Medicine 11/27/22 Kvng Linton MD [address] [place] [address] PCP - Rashid GALVEZ 07/22/23SaturdayElvi LPN [address] [place] [address] Licensed Practical Nurse Family Medicine 02/26/24 08/28/24 Heydi Parker RN [address] [place] [address] Licensed Practical Nurse Family Medicine 08/28/24 10/06/24 Reina Palma LPN [address] [place] [address] 10/06/24 documented as of this encounter
--- OUTSIDE RECORDS SUMMARY | 2025-04-14 10:02 | XMS_ITS | Encounter Summary ---
Author Organization [facility] Address [address] [place] [address] Care Team Providers Care Semiconductor Equipment Technician Name Role Phone Kvng Linton MD Primary Care Provider [phone] Kvng Linton MD Unavailable [phone] Saturday, Elvi AUDIOMETRIC TECHNICIAN Unavailable [phone] Heydi Parker RN Unavailable [phone] Reina Palma AUDIOMETRIC TECHNICIAN Unavailable Encounter Details Date Type Department Care Team (Late st Contact Info) Description 04/11/2023 Orders Only [facility] [place] [facility] [address] [place] [address] Kvng Linton MD [address] [facility] 110 [place], [place] [address] Social History Tobacco Use Types Packs/Day Years [...] on filedocumented in this encounter Care Teams Semiconductor Equipment Technician Relationship Specialty Start Date End Date Kvng Linton MD [address] [place] [address] PCP - General Internal Medicine 11/27/22 Kvng Linton MD [address] [place] [address] PCP - Rashid GALVEZ 07/22/23SaturdayElvi LPN [address] [place] [address] Licensed Practical Nurse Family Medicine 02/26/24 08/28/24 Heydi Parker, FAUSTO [address] [place] [address] Licensed Practical Nurse Family Medicine 08/28/24 10/06/24 Reina Palma LPN [address] [facility] 110 [place] [address] 10/06/24 documented as of this encounter
--- OUTSIDE RECORDS SUMMARY | 2025-04-14 10:02 | XMS_ITS | Encounter Summary ---
Author Organization [facility] Address [address] [place] [address] Care Team Providers Care Lacquer Maker Name Role Phone Kvng Linton MD Primary Care Provider Kvng Linton MD Unavailable [phone] Saturday, Elvi CONSTRUCTION RECRUITER Unavailable [phone] Heydi Parker RN Unavailable Reina Palma CONSTRUCTION RECRUITER Unavailable Encounter Details Date Type Department Care Team (Late st Contact Info) Description 02/26/2024 Clinisync Result Encounter [facility] External Department Unsolicited Nicky Riddle, PA [address] [facility] 110 [place] [address] Social History Tobacco Use Types Packs/Day Years [...] How often do you attend christian or oriental orthodox serv ices? Patient declined 10/30/2023 Do you [...] Patient Health Questionnaire-2 Score 0 02/06/2024 [facility] of Occupat [...] AM EDT Narrative 02/26/2024 11:39 AM EDT [place] [id number] XRay Report Signed Patient: BERENICE DISLA MR#: [id number] : 1945 Acct:[id number] Age/Sex: 78 / F ADM Date: 02/26/24 Loc: RAD Attending Dr: NICKY RIDDLE Ordering Physician: NICKY RIDDLE Date of Service: 02/26/24 Procedure(s): XR DEXA axial skeleton Accession Number(s): [id number] cc: KVNG LINTON ; NICKY RIDDLE [address] [address] Patient Name: BERENICE DISLA MRN: [id number] date: 1945 Sex: F Assigned Patient Location: RAD Current Patient Location: RAD Accession/Order Number: [id number] Exam Date: 02/26/2024 11:05 Report Date: 02/26/2024 [...] prevention and treatment of osteoporosis. Osteoporos Int. 2021;3310):2774-2793. doi: 10.1007/[id number]-d. Epub 2021Nov 16. Erratum in: Osteoporos Int. 2021Feb 15;: PMID: [id number]; PMCID: [id number]. Electronically authenticated by: TARIQ LEVIN Date: 02/26/2024 11:36 Dictated By: Tariq Levin M.D. Signed By: 02/26/24 1139 DD/ 1136 TD/TT: Base Filler Operator: Procedure Note Radiology, Radiologist, MD - 02/26/2024 [place] [address] XRay Report Signed Patient: BERENICE DISLA EMR#: [id number] : 1945cct:[id number] Age/Sex: 78 / FADM Date: 02/26/24 Loc: RAD Attending Dr: NICKY RIDDLE Ordering Physician: NICKY RIDDLE Date of Service: 02/26/24 Procedure(s): XR DEXA axial skeleton Accession Number(s): [id number] cc: KVNG LINTON ; NICKY RIDDLE [place] [address] Patient Name: BERENICE DISLA MRN: [facility]:[id number] date: 1945 Sex: F Assigned Patient Location: [facility] Current Patient Location: [facility] Accession/Order Number: [id number] Exam Date: 02/26/2024 11:05 Report Date: 02/26/2024 [...] 10-year hip fracture risk >= 3% or i31-whdw major osteoporosis-related fracture risk >= 20% (i.e., [...] to prevention and treatment of osteoporosis.Osteoporos Int. 2021;33(10):4375-1499. doi: 10.1007/[id number]-h. Epub . Erratum in: Osteoporos Int. 2021Feb 15;: PMID: [id number]; PMCID: [id number]. Electronically authenticated by: TARIQ LEVIN Date: 02/26/2024 11:36 Dictated By: Tariq Levin M.D. Signed By:02/26/24 1139 DD/ 1136 TD/TT: Base Filler Operator: us Nicky [facility] Final Result documented in this encounter Visit Diagnoses Not on filedocumented in this encounter Additional Health Concerns Assessment Noted Time PHQ-9 Depression Total Score: 1 02/06/20 24 10:00 AM EDT documented as of this encounter Care Teams Lacquer Maker Relationship Specialty Start Date End Date Kvng Linton MD [address] [place] [address] PCP - General Internal Medicine 11/27/22 Kvng Linton MD [address] [place] [address] PCP - Rashid GALVEZ 07/22/23SaturdayElvi LPN [address] [place] [address] Licensed Practical Nurse Family Medicine 02/26/24 08/28/24 Heydi Parker, FAUSTO [address] [facility] [place] [address] Licensed Practical Nurse Family Medicine 08/28/24 10/06/24 Reina Palma LPN [address] [place] [address] 10/06/24 documented as of this encounter
--- OUTSIDE RECORDS SUMMARY | 2025-04-14 10:02 | XMS_ITS | Encounter Summary ---
Author Organization [facility] Address [address] [place] [address] Care Team Providers Care Crocheter Name Role Phone Kvng Linton MD Primary Care Provider Kvng Linton MD Unavailable [phone] Saturday, Elvi ASSEMBLER PIANO Unavailable [phone] Heydi Parker RN Unavailable Reina Palma ASSEMBLER PIANO Unavailable Encounter Details Date Type Department Care Team (Late st Contact Info) Description 03/02/2024 Abstract [facility] [place] [facility] [address] [facility] 110 [place] [address] Kvng Linton MD 112 [facility] 110 [place] [address] Social History Tobacco Use Types [...] and Family Not on file 03/05/2024 Attends Taoist Services Not on file 03/05 Active Member [...] 02/06/2024 [facility] of Occupat ional [facility] - Occupational Stress Questionnaire Answer Date Recorded [...] in a mcc (including now)? No 10/30/2023 Housing Stability Vital Sign Answer Kody e Recorded In the last 12 months, was t here a time when you were not able to pay the mortgage or rent on time? No 03/05/2024 In the past 12 months, how m any times have you moved where you were living? 0 03/05/2024 At any time in the past 12 m [facility], were you homeless or living in a mcc (including now)? No 03/05/2024 Comments Unknown Sex [...] documented as of this encounter Care Teams Crocheter Relationship Specialty Start Date End Date Kvng Linton MD [address] [facility] 110 [place] [address] PCP - General Internal Medicine 11/27/22 Kvng Linton MD [address] [facility] 110 [place] [address] PCP - Rashid GALVEZ 07/22/23SaturdayElvi LPN [address] [facility] 110 [place] [address] Licensed Practical Nurse Family Medicine 02/26/24 08/28/24 Heydi Parker, FAUSTO [address] [place] [address] Licensed Practical Nurse Family Medicine 08/28/24 10/06/24 Reina Palma LPN [address] [facility] 110 [place] [address] 10/06/24 documented as of this encounter
--- OUTSIDE RECORDS SUMMARY | 2025-04-14 10:02 | XMS_ITS | Encounter Summary ---
Author Organization [facility] Address [address] [place] [address] Care Team Providers Care Tablet Coater Name Role Phone Kvng Linton MD Primary Care Provider Kvng Linton MD Unavailable [phone] Saturday, Elvi ADMINISTRATOR SOCIAL WELFARE Unavailable [phone] Heydi Parker RN Unavailable Reina Palma ADMINISTRATOR SOCIAL WELFARE Unavailable Encounter Details Date Type Department Care Team (Late st Contact Info) Description 07/30/2024 Abstract [facility] [place] [facility] [address] [facility] 110 [place] [address] Kvng Linton MD 112 [facility] 110 [place] [address] Social History Tobacco Use Types [...] and Family Not on file 03/05/2024 Attends Mandaen Services Not on file 03/05 Active Member [...] 0 02/06/2024 [facility] of Occupat ional [facility] - Occupational Stress Questionnaire Answer [...] any time in the past 12 m [facility], were you homeless or living [...] documented as of this encounter Care Teams Tablet Coater Relationship Specialty Start Date End Date Kvng Linton MD [address] [place] [address] PCP - General Internal Medicine 11/27/22 Kvng Linton MD [address] [place] [address] PCP - Rashid GALVEZ 07/22/23Saturday, MELISSA Boles [address] [place] [address] Licensed Practical Nurse Family Medicine 02/26/24 08/28/24 Heydi Parker, RN [address] [place] [address] Licensed Practical Nurse Family Medicine 08/28/24 10/06/24 Reina Palma LPN 112 [facility] 110 [place] [address] 10/06/24 documented as of this encounter
--- OUTSIDE RECORDS SUMMARY | 2025-04-14 10:02 | XMS_ITS | Encounter Summary ---
Author Organization [facility] Address [address] [place] [address] Care Team Providers Care Roller Man Name Role Phone Kvng Linton MD Primary Care Provider Kvng Linton MD Unavailable [phone] Saturday, Elvi CHRONOMETER ASSEMBLER AND ADJUSTER Unavailable [phone] Heydi Parker RN Unavailable PalmaTezReina CHRONOMETER ASSEMBLER AND ADJUSTER Unavailable Encounter Details Date Type Department Care Team (Late st Contact Info) Description 08/26/2023 Abstract [facility] [place] [facility] [address] [facility] 110 [place] [address] Kvng Linton MD 112 [facility] 110 [place] [address] Social History Tobacco Use Types [...] filedocumented in this encounter Care Teams Roller Man Relationship Specialty Start Date End Date Kvng Linton MD [address] [place] [address] PCP - General Internal Medicine 11/27/22 Kvng Linton MD [address] [place] [address] PCP - Rashid GALVEZ 07/22/23SaturdayElvi LPN [address] [place] [address] Licensed Practical Nurse Family Medicine 02/26/24 08/28/24 Heydi Parker, RN [address] [place] [address] Licensed Practical Nurse Family Medicine 08/28/24 10/06/24 Reina Palma LPN [address] [facility] 110 [place] [address] 10/06/24 documented as of this encounter
--- OUTSIDE RECORDS SUMMARY | 2025-04-14 10:02 | XMS_ITS ---
Author Organization [facility] Address [address] [place] [address] Care Team Providers Care Sizing Sprayer Name Role Phone Kvng Linton MD Primary Care Provider [phone] Kvng Linton MD Unavailable [phone] Reina Palma LPN Unavailable Chronic Care [...] Name Relationship Phone Reina Palma LPN(Responsible Staff) [phone] Continued Care and Services Coordination
--- OUTSIDE RECORDS SUMMARY | 2025-04-14 10:02 | XMS_ITS | Encounter Summary ---
Author Organization [facility] tem Address [id number] [address] [place] [address] Care Team Providers Care Supervisor Poultry Processing Name Role Phone Kvng Linton MD Primary Care Provider [phone] Encounter Details Date Type Department Care Team (Late st Contact Info) Description 11/30/2020 Orders Only [facility] [address] [place] [address] Kvng Linton MD 112 [facility] 110 [place] [address] Social History Tobacco Use Types [...] on filedocumented in this encounter Care Teams Supervisor Poultry Processing Relationship Specialty Start Date End Date Kvng Linton MD 112 [facility] [address] [place] [address] PCP - General Internal Medicine 11/30/20 documented as of this encounter
--- OUTSIDE RECORDS SUMMARY | 2025-04-14 10:02 | XMS_ITS | Encounter Summary ---
Author Organization [facility] Address [address] [place] [address] Care Team Providers Care Tool And Equipment Rental Clerk Name Role Phone Kvng Linton MD Primary Care Provider Kvng Linton MD Unavailable [phone] Saturday, Elvi ROD AND TUBE STRAIGHTENER Unavailable [phone] Heydi Parker RN Unavailable PalmaTezReina ROD AND TUBE STRAIGHTENER Unavailable Encounter Details Date Type Department Care Team (Late st Contact Info) Description 08/26/2023 Abstract [facility] [place] [facility] [place] [address] [facility] 110 [place] [address] Kvng Linton MD 112 [facility] 110 [place] [address] Social History Tobacco Use Types [...] on filedocumented in this encounter Care Teams Tool And Equipment Rental Clerk Relationship Specialty Start Date End Date Kvng Linton MD [address] [place] [address] PCP - General Internal Medicine 11/27/22 Kvng Linton MD [address] [place] [address] PCP - Rashid GALVEZ 07/22/23SaturdayElvi LPN [address] [place] [address] Licensed Practical Nurse Family Medicine 02/26/24 08/28/24 Heydi Parker, RN [address] [place] [address] Licensed Practical Nurse Family Medicine 08/28/24 10/06/24 Reina Palma LPN [address] [facility] 110 [place] [address] 10/06/24 documented as of this encounter
--- OUTSIDE RECORDS SUMMARY | 2025-04-14 10:02 | XMS_ITS | Encounter Summary ---
Author Organization [facility] Address [address] [place] [address] Care Team Providers Care Potato Chip Maker Name Role Phone Kvng Linton MD Primary Care Provider [phone] Kvng Linton MD Unavailable Saturday, Elvi COURTESY CAR DRIVER Unavailable [phone] Heydi Parker RN Unavailable [phone] Reina Palma COURTESY CAR DRIVER Unavailable Encounter Details Date Type Department Care Team (Late st Contact Info) Description 03/02/2024 Abstract [facility] [place] [facility] [address] [facility] 110 [place] [address] Kvng Linton MD 112 [facility] 110 [place] [address] Social History Tobacco Use Types [...] and Family Not on file 03/05/2024 Attends Confucianist Services Not on file 03/05 Active Member [...] [facility] Occupat ional [facility] - Occupational Stress Questionnaire Answer [...] place to sleep or slept in a alf (including now)? No 10/30/2023 Housing Stability Vital Sign Answer Kody e Recorded In the last 12 months, was t here a time when you were not able to pay the mortgage or rent on time? No 03/05/2024 In the past 12 months, how m any times have you moved where you were living? 0 03/05/2024 At any time in the past 12 m [facility], were you homeless or living in a alf (including now)? No 03/05/2024 Comments Unknown Sex [...] documented as of this encounter Care Teams Potato Chip Maker Relationship Specialty Start Date End Date Kvng Linton MD [address] [facility] 110 [place] [address] PCP - General Internal Medicine 11/27/22 Kvng Linton MD [address] [facility] 110 [place] [address] PCP - Rashid GALVEZ 07/22/23SaturdayElvi LPN [address] [facility] 110 [place] [address] Licensed Practical Nurse Family Medicine 02/26/24 08/28/24 Heydi Parker, FAUSTO [address] [place] [address] Licensed Practical Nurse Family Medicine 08/28/24 10/06/24 Reina Palma LPN [address] [facility] 110 [place] [address] 10/06/24 documented as of this encounter
--- OUTSIDE RECORDS SUMMARY | 2025-04-14 10:02 | XMS_ITS | Encounter Summary ---
Author Organization [facility] Address [address] [place] [address] Care Team Providers Care Analytical Strategist Name Role Phone Kvng Linton MD Primary Care Provider Kvng Linton MD Unavailable Saturday, Elvi FUR CUTTING MACHINE OPERATOR Unavailable [phone] Heydi Parker RN Unavailable Reina Palma FUR CUTTING MACHINE OPERATOR Unavailable Encounter Details Date Type Department Care Team (Late st Contact Info) Description 11/28/2023 Abstract [facility] [place] [facility] [address] [facility] [facility] 110 [place] [address] Kvng Linton MD 112 [facility] 110 [place] [address] Social History Tobacco Use Types [...] How often do you attend worship or latter-day serv ices? Patient declined 10/30/2023 Do you [...] and heating? Not hard at all 10/30/2023 [facility] of Occupat ional Health - [...] on filedocumented in this encounter Care Teams Analytical Strategist Relationship Specialty Start Date End Date Kvng Linton MD [address] [place] [address] [place] [address] PCP - General Internal Medicine 11/27/22 Kvng Linton MD [address] [place] [address] [place] [address] PCP - Rashid GALVEZ 07/22/23SaturdayElvi LPN [address] [place] [address] Licensed Practical Nurse Family Medicine 02/26/24 08/28/24 Heydi Parker, FAUSTO [address] [place] [address] Licensed Practical Nurse Family Medicine 08/28/24 10/06/24 Reina Palma LPN [address] [place] [address] [place] [address] 10/06/24 documented as of this encounter
--- OUTSIDE RECORDS SUMMARY | 2025-04-14 10:02 | XMS_ITS | Encounter Summary ---
Author Organization [facility] Address [address] [place] [address] Care Team Providers Care Grit Blaster Name Role Phone Kvng Linton MD Primary Care Provider [phone] Kvng Linton MD Unavailable [phone] Saturday, Elvi PIER HAND Unavailable [phone] Heydi Parker RN Unavailable [phone] Reina Palma PIER HAND Unavailable Encounter Details Date Type Department Care Team (Late st Contact Info) Description 03/14/2023 Abstract [facility] [place] [facility] [address] [facility] 110 [place] [address] Katie Rosas, MANAGER ATHLETICS [address] [facility] 110 [place], [place] [id number] Social History Tobacco Use Types Packs/Day Years [...] on filedocumented in this encounter Care Teams Grit Blaster Relationship Specialty Start Date End Date Kvng Linton MD [address] [place] [address] [place] [address] PCP - General Internal Medicine 11/27/22 Kvng Linton MD [address] [place] [address] [place] [address] PCP - Rashid GALVEZ 07/22/23Saturday, MELISSA Boles [address] [place] [address] Licensed Practical Nurse Family Medicine 02/26/24 08/28/24 Heydi Parker, RN [address] [place] [address] Licensed Practical Nurse Family Medicine 08/28/24 10/06/24 Reina Palma LPN [address] [facility] 110 [place] [address] 10/06/24 documented as of this encounter
--- OUTSIDE RECORDS SUMMARY | 2025-04-14 10:02 | XMS_ITS | Encounter Summary ---
Author Organization [facility] Address [address] [place] [address] Care Team Providers Care Outpatient Pharmacy Manager Name Role Phone Kvng Linton MD Primary Care Provider Kvng Linton MD Unavailable [phone] Saturday, Elvi MILITARY COOK Unavailable [phone] Heydi Parker RN Unavailable [phone] PalmaReina MILITARY COOK Unavailable Encounter Details Date Type Department Care Team (Late st Contact Info) Description 04/10/2023 Clinisync Result Encounter [facility] External Department Unsolicited Kvng Linton MD [address] [facility] 110 [place] [id number] Social History Tobacco Use Types Packs/Day Years [...] EDT Narrative 04/10/2023 2:57 [place] [address] Mammography Report Signed Patient: BERENICE DISLA MR#: [id number] : 1945 Acct:[id number] Age/Sex: 77 / F ADM Date: 04/09/23 Loc: MAMMO Attending Dr: KVNG LINTON Ordering Physician: KVNG LINTON Results: Date of Service: 04/09/23 Follow Up: Procedure(s): MM tomosynthesis screening BI Accession Number(s): [id number] cc: KVNG LINTON Patient: BERENICE DISLA Exam Date: 04/09/2023 : 1945 Gender:F Ordering : DR KVNG LINTON M.D. Admission #: [id number] Family : Order #: [id number] CLICK HERE TO VIEW EXAM RADIOLOGY REPORT [...] ovarian cancer at age 52. LOCATION: [facility] BREAST COMPOSITION: Scattered areas fibroglandular density. [...] Signed By: 04/10/23 1458 DD/ 1457 TD/TT: Underwriting Account Representative: Procedure Note Radiology, Radiologist, MD - 04/12/2023 [place] [address] Mammography Report Signed Patient: BERENICE DISLA EMR#: [id number] : 1945cct:[id number] Age/Sex: 77 / FADM Date: 04/09/23 Loc: MAMMO Attending Dr: KVNG LINTON Ordering Physician: KVNG LINTONResults: Date of Service: 04/09/23Follow Up: Procedure(s): MM tomosynthesis screening BI Accession Number(s): [id number] cc: KVNG LINTON Patient: BERENICE DISLA Exam Date: 04/09/2023 : 1945 Gender:F Ordering : DR KVNG LINTON M.D. Admission #: [id number] Family : Order #: [id number] CLICK HERE TO VIEW EXAM RADIOLOGY REPORT [...] ovarian cancer at age 52. LOCATION: [facility] BREAST COMPOSITION: Scattered areas fibroglandular density. [...] Levin M.D. Signed By:04/10/238 DD/ 56 TD/TT: Underwriting Account Representative: Kvng Linton MD [facility] Final Result documented in this encounter Visit Diagnoses Not on filedocumented in this encounter Care Teams Outpatient Pharmacy Manager Relationship Specialty Start Date End Date Kvng Linton MD [address] [place] [address] [place] [address] PCP - General Internal Medicine 11/27/22 Kvng Linton MD [address] [place] [address] [place] [address] PCP - Rashid GALVEZ 07/22/23SaturdayElvi LPN [address] [place] [address] Licensed Practical Nurse Family Medicine 02/26/24 08/28/24 Heydi Parker, RN [address] [place] [address] Licensed Practical Nurse Family Medicine 08/28/24 10/06/24 Reina Palma LPN [address] [place] [address] [place] [address] 10/06/24 documented as of this encounter
--- OUTSIDE RECORDS SUMMARY | 2025-04-14 10:02 | XMS_ITS | Encounter Summary ---
Author Organization [facility] Address [address] [place] [address] Care Team Providers Care Pantry Cook Name Role Phone Kvng Linton MD Primary Care Provider [phone] Kvng Linton MD Unavailable [phone] Saturday, Elvi DOFFER Unavailable [phone] Heydi Parker RN Unavailable Reina Palma DOFFER Unavailable Encounter Details Date Type Department Care Team (Late st Contact Info) Description 12/19/2023 Abstract [facility] [place] [facility] [address] [facility] 110 [place] [address] Kvng Linton MD 112 [facility] 110 [place] [address] Social History Tobacco Use Types [...] How often do you attend religion or rastafarian serv ices? Patient declined 10/30/2023 Do you [...] and heating? Not hard at all 10/30/2023 [facility] of Occupat ional Health - Occupational Stress [...] on filedocumented in this encounter Care Teams Pantry Cook Relationship Specialty Start Date End Date Kvng Linton MD [address] [place] [address] [place] [address] PCP - General Internal Medicine 11/27/22 Kvng Linton MD [address] [place] [address] [place] [address] PCP - Rashid GALVEZ 07/22/23SaturdayElvi LPN [address] [place] [address] Licensed Practical Nurse Family Medicine 02/26/24 08/28/24 Heydi Parker, FAUSTO [address] [place] [address] Licensed Practical Nurse Family Medicine 08/28/24 10/06/24 Reina Palma LPN [address] [place] [address] [place] [address] 10/06/24 documented as of this encounter
--- OUTSIDE RECORDS SUMMARY | 2025-04-14 10:03 | XMS_ITS | Patient Health Record ---
Author Organization [facility] [place] Address [address] [place] [address] Care Team Providers Care Train Planner Name Role Phone Yanira DELONG, Hayde Primary [...] Status W/U Status Risk Notes Problem Anxiety (72213472) Anxiety (F41.9) Active confi rmed Problem Peripheral neuropath y (689488572) Peripheral neuropathy (G62.9) Active confirmed Problem Transient ischemic attack (939091281) TIA (transient ischemic attack) (G45.9) Active confirmed Problem Restless legs (35638425) RLS (restless legs syndrome) (G25.81) Active confirmed Problem Edema (837080696) Edema extremit ies (R60.0) Active confirmed Problem Hyperlipoproteinemia (2996093) 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) Active confirmed Problem Acute osteomyelitis of ankle and/or foot (510503461) Osteomyelitis of ankle or foot, right, acute (M86.171) Active confirmed Problem Essential hypertension (02398935) BP (high blood pressure) (I10) Active confirmed Problem 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 (L97.512) Active confirmed Problem 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 of necrosis (L97.415) Active confirmed Problem Atrophy of nail (083468695) Atrophy of nail (L60.3) Active confirmed Problem Chronic 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 layer exposed (L97.412) Active confirmed Problem Chronic ulcer of right foot (disorder) (35212267059721689) 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
--- OUTSIDE RECORDS SUMMARY | 2025-04-14 10:03 | XMS_ITS | Clinical Summary ---
Author Organization [facility] Address [address] [place] [address] Care Team Providers Care Bulk Station Operator Name Role Phone Kvng Linton MD Primary Care Provider [phone] Kvng Linton MD Unavailable [phone] Reina Palma LPN Unavailable Allergies Active [...] Dermatology [address] [place] [address] [place] [address] Katlin Triplett MD Encounter for removal of sutures 03/16/2025 Bamboo flowsheet [facility] [address] [place] [address] [place] [address] Katlin Triplett MD 03/16/2025 Travel 03/08/2025 Patient Outreach [facility] [address] [place] [address] Reina Palma LPN 03/05/2025 Results Follow-Up [facility] [address] [place] [address] [place] [address] Katlin Triplett MD Dermatopathology exam 03/04/2025 [facility] [place] [address] Reina PalmaMELISSA 03/02/2025 3:15 PM EDT Office Visit [facility] [address] [place] [address] Katlin Triplett MD Epidermal inclusion cyst (Primary Dx); Pain 03/02/2025 Bamboo flowsheet [facility] [address] [place] [place] [address] Katlin Triplett MD 03/02/2025 Travel 02/25/2025 Abstract [facility] [place] [facility] [address] [facility] 110 [place] [address] Kvng Linton MD 02/23/2025 10:00 AM EDT [facility] [address] [facility] 110 [place] [address] Nicky Riddle PA Medicare annual wellness visit, [...] Left sided sciatica 02/23/2025 Bamboo flowsheet [facility] [place] [facility] [address] [place] [address] [place] [address] Nicky Riddle PA 02/23/2025 Travel 02/01/2025 Patient Outreach [facility] [address] [place] [address] Reina Palma LPN 01/27/2025 Clinisync Result Encounter [facility] External Department Unsolicited Provider, Generic External Data from Last 3 Months Immunizations Immunization Administration [...] Recorded Patient Health Questionnaire-2 Score 0 02/23/2025 [facility] of Occupat ional Health - Occupational [...] place to sleep or slept in a assisted (including now)? No 10/30/2023 Housing Stability Vital Sign Answer Kody e Recorded In the last 12 months, was t here a time when you were not able to pay the mortgage or rent on time? No 03/05/2024 In the past 12 months, how m any times have you moved where you were living? 0 03/05/2024 At any time in the past 12 m [facility], were you homeless or living in a assisted (including now)? No 03/05/2024 Comments Unknown Sex [...] Last Done Comments Influenza Vaccine (#1) 2025 2, 05/03/2021, 04/12/2020, Additional history exists Medicare Annual [...] Description Microscopic examination performed. [facility] CPT 20831*1 [facility] Skin Topography unknown / Unknown 03/02/2025 3:54 PM EDT Comment:Differential Diagnos is: EIC Check Margins: No Size of lesion: 2.3 x 2.0 cm Diagnosis: (L72.0) Epidermal inclusion cyst us Katlin Triplett MD LAB PATHOLOGY ORDERABLES Yessy stapleton Result [facility] * XR FOOT RT MIN 3V (01/27/2025 3:41 PM EDT) Anatomical Region Laterality Modality Other 01/27/2025 3:41 PM EDT Narrative 01/27/2025 3:43 [place] [address] XRay Report Signed Patient: BERENICE SILVA MR#: [id number] : 1945 Acct:[id number] Age/Sex: 79 / F ADM Date: 01/27/25 Loc: RAD Attending Dr: Anup Perez D.P.M. Ordering Physician: Anup Perez D.P.M. Date of Service: 01/27/25 Procedure(s): XR foot RT min 3V Accession Number(s): [id number] cc: KVNG LINTON ; Anup Perez D.P.M. The [address] [address] Patient Name: BERENICE SILVA MRN: [facility]:[id number] date: 1945 Sex: F Assigned Patient Location: [facility] Current Patient Location: Accession/Order Number: [id number] Exam Date: 01/27/2025 15:38 Report Date: 01/27/2025 [...] Fish M.D. 01/27/2025 3:41 PM Dictation Location: [place] [address] Electronically authenticated by: [id number] Y Date: 01/27/2025 15:41 Dictated By: Lew Fish D.O. Signed By: 01/27/25 1543 DD/ 1541 TD/TT: Refinery Operator Vapor Recovery Unit: Procedure Note Radiology, Radiologist, MD - 01/27/2025 [place] [address] XRay Report Signed Patient: BERENICE SILVA EMR#: [id number] : 1945cct:[id number] Age/Sex: 79 / FADM Date: 01/27/25 Loc: RAD Attending Dr: Anup Perez D.P.M. Ordering Physician: Anup Perez D.P.M. Date of Service: 01/27/25 Procedure(s): XR foot RT min 3V Accession Number(s): [id number] cc: KVNG LINTON ; Anup Perez D.P.M. The [place] [id number] Patient Name: BERENICE SILVA MRN: [id number] date: 1945 Sex: F Assigned Patient Location: [facility] Current Patient Location: Accession/Order Number: [id number] Exam Date: 01/27/2025 15:38 Report Date: 01/27/2025 [...] Fish M.D. 01/27/2025 3:41 PM Dictation Location: [place] [address] Electronically authenticated by: [id number] Y Date: 5:41 Dictated By: Lew Fish D.O. Signed By:01/27/25 1543 DD/ 1541 TD/TT: Refinery Operator Vapor Recovery Unit: Generic External Data Provider [facility] Final Result * MM TOMOSYNTHESIS SCREENING BI (04/10/2023 2:57 PM EDT) Anatomical Region Laterality Modality Other 04/10/2023 2:57 PM EDT Narrative 04/10/2023 2:57 [place] [address] Mammography Report Signed Patient: BERENICE SILVA MR#: [id number] : 1945 Acct:[id number] Age/Sex: 77 / F ADM Date: 04/09/23 Loc: MAMMO Attending Dr: KVNG LINTON Ordering Physician: KVNG LINTON Results: Date of Service: 04/09/23 Follow Up: Procedure(s): MM tomosynthesis screening BI Accession Number(s): [id number] cc: KVNG LINTON Patient: BERENICE SILVA Exam Date: 04/09/2023 : 1945 Gender:F Ordering : DR KVNG LINTON M.D. Admission #: [id number] Family : Order #: [id number] CLICK HERE TO VIEW EXAM RADIOLOGY REPORT [...] ovarian cancer at age 52. LOCATION: [facility] BREAST COMPOSITION: Scattered areas fibroglandular [...] Signed By: 04/10/23 1458 DD/ 1457 TD/TT: Refinery Operator Vapor Recovery Unit: Procedure Note Radiology, Radiologist, - 04/12/2023 The [place] [id number] Mammography Report Signed Patient: BERENICE SILVA EMR#: [id number] : 1945cct:[id number] Age/Sex: 77 / FADM Date: 04/09/23 Loc: MAMMO Attending Dr: KVNG LINTON Ordering Physician: KVNG LINTONResults: Date of Service: 04/09/23Follow Up: Procedure(s): MM tomosynthesis screening BI Accession Number(s): [id number] cc: KVNG LINTON Patient: BERENICE SILVA Exam Date: 04/09/2023 : 1945 Gender:F Ordering : DR KVNG LINTON M.D. Admission #: [id number] Family : Order #: [id number] CLICK HERE TO VIEW EXAM RADIOLOGY REPORT [...] ovarian cancer at age 52. LOCATION: [facility] BREAST COMPOSITION: Scattered areas fibroglandular [...] M.D. Signed By:04/10/23 1458 DD/ 1457 TD/TT: Refinery Operator Vapor Recovery Unit: Kvng Linton MD [facility] Final Result [...] Piedra et al, N Engl J Med 2014;370(14):8468-8234) The normal value (reference range) for this assay is negative. COLOGUARD RE-SCREENING RECOMMENDATION: Periodic colorectal cancer screening is an important part of preventive healthcare for asymptomatic individuals at average risk for colorectal cancer. Following a negative Cologuard result, the [employer] Cancer Society and U.S. Multi-Society Task Force screening guidelines recommend a Cologuard re-screening interval of 3 years. References: [employer] Cancer Society Guideline for Colorectal Cancer Screening: https://www.cancer.org/cancer/mkhfd-htjipq-dxlaax/kuxrprymm-yagkkqhns-bgqlsvt/ac s-rec ommendations.html.; Dave DK, Jacobo CR, Nika LeijaK, Colorectal Cancer Screening: Recommendations for Physicians and Patients from the U.S. Multi-Society Task Force on Colorectal Cancer Screening , Am J Gastroenterology 2017; 112:4785-6410. TEST DESCRIPTION: Composite algorithmic analysis of stool [...] (Luc Reardon al, N Engl J Med 2014;370(14):7143-0171.) Cologuard may produce a false negative or false positive result (no colorectal cancer or precancerous polyp present at colonoscopy follow up). A negative Cologuard test result does not guarantee the absence of CRC or advanced adenoma (pre-cancer). The current Cologuard screening interval is every 3 years. ([employer] Cancer Society and U.S. Multi-Society Task Force). Cologuard performance data in a 10,000 patient pivotal study using colonoscopy as the reference method can be accessed at the following location: www.[employer].com/results. Additional description of the Cologuard test process, warnings and precautions can be found at www.cologuard.com. 04/10/2022 us Kvng Linton MD LAB MOLECULAR DIAGNOSTICS BANDAR LOPEZ Final Result [facility] from Last 3 Months or Most Recently Relevant to Health Maintenance Insurance [facility] MEDICARE ADVANTAGE Care Teams Bulk Station Operator Relationship Specialty Start Date End Date Kvng Linton MD [address] [facility] 110 [place] [address] PCP - General Internal Medicine 11/27/22 Kvng Linton MD [address] [facility] 110 [place] [address] PCP - Rashid GALVEZ 07/22/23 Reina Palma LPN [address] [facility] 110 [place] [address] 10/06/24
--- OUTSIDE RECORDS SUMMARY | 2025-04-14 10:03 | XMS_ITS | Encounter Summary ---
Author Organization [facility] Address [address] [place] [address] Care Team Providers Care Roof Cement And Paint Maker Name Role Phone Kvng Linton MD Primary Care Provider Kvng Linton MD Unavailable [phone] Saturday, Elvi MARKETING BUSINESS ANALYST Unavailable [phone] Heydi Parker RN Unavailable [phone] Reina Palma MARKETING BUSINESS ANALYST Unavailable Encounter Details Date Type Department Care Team (Late st Contact Info) Description 08/26/2024 Abstract [facility] [place] [facility] [address] [facility] 110 [place] [address] Kvng Linton MD 112 [facility] 110 [place] [address] Social History Tobacco Use Types [...] Recorded Patient Health Questionnaire-2 Score 0 02/06/2024 [facility] of Occupat ional [facility] - Occupational Stress Questionnaire Answer Date [...] documented as of this encounter Care Teams Roof Cement And Paint Maker Relationship Specialty Start Date End Date Kvng Linton MD [address] [place] [address] [place] [address] PCP - General Internal Medicine 11/27/22 Kvng Linton MD [address] [place] [address] [place] [address] PCP - Rashid GALVEZ 07/22/23Saturday, MELISSA Boles [address] [place] [address] Licensed Practical Nurse Family Medicine 02/26/24 08/28/24 Heydi Parker, RN [address] [place] [address] Licensed Practical Nurse Family Medicine 08/28/24 10/06/24 Reina Plama LPN 112 [facility] 110 [place] [address] 10/06/24 documented as of this encounter
--- OUTSIDE RECORDS SUMMARY | 2025-04-14 10:03 | XMS_ITS | Encounter Summary ---
Author Organization [facility] Address [address] [place] [address] Care Team Providers Care Welder Apprentice Name Role Phone Kvng Linton MD Primary Care Provider [phone] Kvng Linton MD Unavailable [phone] Reina Palma LPN Unavailable Encounter Details Date Type Department Care Team (Late st Contact Info) Description 02/25/2025 [facility] [place] [facility] 110 [place] [id number] Kvng Linton MD 112 [facility] 110 [place], [place] [id number] Social History Tobacco Use Types Packs/Day Years [...] and Family Not on file 03/05/2024 Attends Je[employer] Services Not on file 03/05 Active Member [...] Recorded Patient Health Questionnaire-2 Score 0 02/[facility]2025 [facility] a[facility] camp[facility] - Occupational Stress Questionnaire Answer Date [...] any time in the past 12 m [facility], were you homeless or living [...] documented as of this encounter Care Teams Welder Apprentice Relationship Specialty Start Date End Date Kvng Linton MD [address] [place] [address] PCP - General Internal Medicine 11/27/22 Kvng Linton MD [address] [place] [address] PCP - Rashid GALVEZ 07/22/23 Reina Palma LPN [address] [place] [address] 10/06/24 documented as of this encounter
--- OUTSIDE RECORDS SUMMARY | 2025-04-14 10:03 | XMS_ITS | Encounter Summary ---
Author Organization [facility] Address [address] [place] [address] Care Team Providers Care Senior Sql Developer Name Role Phone Kvng Linton MD Primary Care Provider [phone] Kvng Linton MD Unavailable [phone] Reina Palma LPN Unavailable Reason for Visit * Reason Onset Date Comments On-Call 01/09/2025 Encounter Details Date Type Department Care Team (Late st Contact Info) Description 01/09/2025 [facility]phone [facility] [place] [facility] 110 [place] [address] Tsering Conte, WAREHOUSE ANALYST 112 [facility] 110 [place] [address] On-Call Social History Tobacco Use [...] and Family Not on file 03/05/2024 Attends Rastaf[employer] Services Not on file 03/05 Active Member [...] Recorded Patient Health Questionnaire-2 Score 0 11/11/2024 [facility] - [...] place to sleep or slept in a residential (including now)? No 10/30/2023 Housing Stability Vital Sign Answer Kody e Recorded In the last 12 months, was t here a time when you were not able to pay the mortgage or rent on time? No 03/05/2024 In the past 12 months, how m any times have you moved where you were living? 0 03/05/2024 At any time in the past 12 m [facility], were you homeless or living in a residential (including now)? No 03/05/2024 Comments Unknown Sex [...] documented as of this encounter Care Teams Senior Sql Developer Relationship Specialty Start Date End Date Kvng Linton MD [address] [facility] [address] [place] [address] PCP - General Internal Medicine 11/27/22 Kvng Linton MD [address] [facility] [address] [place] [address] PCP - Rashid GALVEZ 07/22/23 Reina Palma LPN [address] [facility] [address] [place] [address] 10/06/24 documented as of this encounter
--- OUTSIDE RECORDS SUMMARY | 2025-04-14 10:03 | XMS_ITS | Encounter Summary ---
Author Organization [facility] Address [address] [place] [address] Care Team Providers Care Makeup Instructor Name Role Phone Kvng Linton MD Primary Care Provider [phone] Kvng Linton MD Unavailable [phone] Reina Palma LPN Unavailable Encounter Details Date Type Department Care Team (Latest Contact Info) Description 03/05/2025 Results Follow-Up [facility] [address] [facility] [address] [place] [address] Katlin Triplett MD [address] [facility] [address] [place] [address] Dermatopathology exam Social History Tobacco [...] and Family Not on file 03/05/2024 Attends Muslim Services Not on file 03/05 Active Member [...] Recorded Patient Health Questionnaire-2 Score 0 02/23/2025 [facility] - Occupational [...] any time in the past 12 m [facility], were you homeless or living in [...] documented as of this encounter Care Teams Makeup Instructor Relationship Specialty Start Date End Date Kvng Linton MD [address] [place] [address] PCP - General Internal Medicine 11/27/22 Kvng Linton MD [address] [place] [address] PCP - Rashid GALVEZ 07/22/23 Reina Palma LPN [address] [place] [address] 10/06/24 documented as of this encounter
--- OUTSIDE RECORDS SUMMARY | 2025-04-14 10:03 | XMS_ITS | Patient Health Record ---
Author Organization [facility] Address [address] [place] [address] Care Team Providers Care Flight Attendant/Inflight Manager Name Role Phone Araceli Woo Primary Care Provider Johanna Wheat Unavailable [phone] Helga Echevarria Unavailable [phone] Lizeth Dimas Unavailable [phone] Reason For Referral No Information Medications Medication SIG (Take, Route, Fr equency, Duration) Notes Start Date End Date Status Ibuprofen 800 MG 1 tablet with food o r milk as needed Orally Three times a day 05/13/2024 Active Encounters Encounter Location Date Provider Diagnosis [facility] [address] [place] [address] 11/23/2024 Araceli Woo [facility] [address] [facility] [place] [address] 05/13/2024 Johanna Palacios Cracked tooth K03.81 [facility] [address] [facility] [place] [address] 05/20/2024 Araceli Woo Cracked tooth K03.81 Assessments Encounter Date Diagnosis (ICD Code) Assessment Notes Treatment Notes Treatment Clinical Notes Section Notes 05/13/2024 Cracked tooth (ICD-10 - K03.81) 05/20/2024 Cracked tooth (ICD-10 - K03.81) Plan Of Treatment No Information Insurance Providers Payer Name Payer Address Payer Phone Subscriber Number Group Number Insured Name Patient Relationship to Insured Coverage Start Date Coverage End Date [employer] [address] [address] [place] [phone] [id number] JESSICA SILVA Self - patient is the insured 4
--- OUTSIDE RECORDS SUMMARY | 2025-04-14 10:09 | XMS_ITS | CCD ---
Author Organization [facility] Care Team Providers Care Grade Checker Name Role Phone ANUP JOHN Attending Unavailable [...] Unavailable Kvng Linton MD Primary Care Provider vKng Linton MD Unavailable IRWIN HODGE Attending Unavailable [...] KVNG LINTON B Primary Care Unavailable Saturday RELIGIOUS ASSISTANT, Elvi Unavailable Saturday RELIGIOUS ASSISTANT, Elvi Unavailable Heydi Parker RN Unavailable [phone] [place] RELIGIOUS ASSISTANT, Reina Unavailable Unavailable [place] RELIGIOUS ASSISTANT, Reina Unavailable TSERING STARR Attending Unavailable GABRIELA GILMAN Attending Unavailable KVNG LINTON Attending Unavailable NICKY RIDDLE Attending Unavailable KATLIN ROMERO Attending Unavailable KATLIN ROMERO Attending Unavailable NICKY RIDDLE Attending Unavailable Allergies Allergy Classification Reported Allergen(s) Allergy Type Date of Onset Reaction(s) Facility (1 source) Amoxicillin / Clavulanate Drug Allergy [facility] Repository (1 source) Cephalexin Drug Allergy 9 [facility] Repository (1 source) Sulfonamides (Antibiotic) Drug allergy (disorder) [facility] Repository (20 sources) Sulfonamides (Antibiotic) Drug Allergy 3 [facility] (20 sources) Amoxicillin-Pot Clavulanate; Translations: [AMOXICILLIN-POT CLAVULANATE] Drug Allergy 1 Nausea Only [facility] Healthcare (3 sources) Sulfonamides (Antibiotic); Translations: [SULFA (SULFONAMIDE ANTIBIOTICS)] Propensity to adverse reactions to drug (disorder) 2 [facility] Repository Medications Current Medications Medication Drug Class(es) Dates Sig (Normalized) Sig (Original) acetaminophen 325 mg / HYDROcodone bitartrate 5 mg oral tablet (3 sources) Opioid Agonist Start: 10-22-2022 End: 09-04-2023 take 1 tablet by mouth four times daily as needed HYDROcodone-aceta minophen ([place]) 5-325 MG tablet Take 1 tablet by [...] Start: 06-17-2023 take 2 tablets by mo [facility] in the morning rOPINIRole [...] 02/23/2025 03/05/2025 Active [facility] needed traMADol [...] 03-12-2023 Chronic Other aftercare (1 source) Other nursing home (current) drug therapy; Translations: [OTH CLERGY MEMBER CURRENT DRUG THERAPY] Onset: 10-31-2022 Episodic Other [...] ml Estimated blood loss: <1.0 ml [facility] e Complexity: Intermediate Final length (cm): [...] uncontrollable bleeding, or complications. Dressing type: bandage [facility] XR FOOT RT MIN 3Von 01-28-[address] [place] [address] XRay Report Signed Patient: BERENICE SILVA MR#: [id number] : 1945 Acct:[id number] Age/Sex: 79 / F ADM Date: 01/27/25 Loc: RAD Attending Dr: Anup John D.P.M. Ordering Physician: Anup John D.P.M. Date of Service: 01/27/25 Procedure(s): XR foot RT min 3V Accession Number(s): [id number] cc: KVNG LINTON ; Anup John D.P.M. The [place] [id number] Patient Name: BERENICE SILVA MRN: [facility]:[id number] date: 1945 Sex: F Assigned Patient Location: [facility] Current Patient Location: Accession/Order Number: [id number] Exam Date: 01/27/2025 15:38 Report Date: 01/27/2025 [...] Fish M.D. 01/27/2025 3:41 PM Dictation Location: [place] [address] Electronically authenticated by: [id number] Y Date: 01/27/2025 15:41 Dictated By: Lew Fish D.O. Signed By: 01/27/25 1543 DD/ 1541 TD/TT: Comb Winder: [facility] Radiology, Radiologist, MD - 01/27/2025 [place] [address] XRay Report Signed Patient: BERENICE SILVA MR#: [id number] : 1945 Acct:[id number] Age/Sex: 79 / F ADM Date: 01/27/25 Loc: [facility] Attending Dr: Anup John D.P.M. Ordering Physician: Anup John D.P.M. Date of Service: 01/27/25 Procedure(s): XR foot RT min 3V Accession Number(s): [id number] cc: KVNG LINTON ; Anup John D.P.M. The [place] [address] Patient Name: BERENICE SILVA MRN: [id number] date: 1945 Sex: F Assigned Patient Location: [facility] Current Patient Location: Accession/Order Number: [id number] Exam Date: 01/27/2025 15:38 Report Date: 01/27/2025 [...] Fish M.D. 01/27/2025 3:41 PM Dictation Location: [place] [address] Electronically authenticated by: [id number] Y Date: 01/27/2025 15:41 Dictated By: Lew Fish D.O. Signed By: 01/27/25 1543 DD/ 1541 TD/TT: Comb Winder: [facility] AQH Radiology Study observation (narrative) [facility] XR FOOT RT MIN 3VOrdered By: Radiologist Radiology on 01-27-2025 [facility] [email or web address] e Work Phone: CBC (INCLUDES DIFF/PLT)on Basophils (Bld) [#/Vol] 0.053 10*3/uL Normal 0-200 [facility] Comment on above: Performed By: #### 6 399, 2920, 81775 #### [facility] [address], [address] [place] [id number] [employer]: Keagan Holly MD Basophils/100 WBC (Bld) 1.0 % Normal [facility] Comment on above: Performed By: #### 6 399, 7600, 88191 #### [facility] of [place] [address] [employer]: Keagan Holly MD Eosinophils (Bld) [#/Vol] 0.143 10*3/uL Normal 15-500 [facility] Comment on above: Performed By: #### 6 399, 7600, 22817 #### [facility] of [place] [address] [employer]: Keagan Holly MD Eosinophils/100 WBC (Bld) 2.7 % Normal [facility] Comment on above: Performed By: #### 6 399, 7600, 36045 #### [facility] of [place] [address] [employer]: Keagan Holly MD Erythrocyte distribution width (RBC) [Ratio] 11.9 % Normal 11.0-15.0 [facility] Comment on above: Performed By: #### 6 399, 7600, 78376 #### [facility] of [place] [address] [employer]: Keagan Holly MD Hematocrit (Bld) [Volume fraction] 38.1 % Normal 35.0-45.0 [facility] Comment on above: Performed By: #### 6 399, 7600, 04162 #### [facility] of [place] [address] [employer]: Keagan Holly MD Hemoglobin (Bld) [Mass/Vol] 13.1 g/dL Normal 11.7-15.5 [facility] Comment on above: Performed By: #### 6 399, 7600, 44489 #### [facility] of [place] [address] [employer]: Keagan Holly MD Lymphocytes (Bld) [#/Vol] 1.988 10*3/uL Normal 850-3900 [facility] Comment on above: Performed By: #### 6 399, 7600, 32180 #### [facility] [place] [address] [employer]: Keagan Holly MD Lymphocytes/100 WBC (Bld) 37.5 % Normal [facility] Comment on above: Performed By: #### 6 399, 7600, 80350 #### [facility] [place] [address] [employer]: Keagan Holly MD MCH (RBC) [Entitic mass] 31.3 pg Normal 27.0-33.0 [facility] Comment on above: Performed By: #### 6 399, 7600, 28347 #### [facility] [place] [address] [employer]: Keagan Holly MD MCHC (RBC) [Mass/Vol] 34.4 [...] condition. Performed By: #### 6 399, 7600, 67655 #### [facility] of [place] [address] [employer]: Keagan Holly MD MCV (RBC) [Entitic vol] 91.1 fL Normal 80.0-100.0 [facility] Comment on above: Performed By: #### 6 399, 7600, 51066 #### [facility] [place] [address] [employer]: Keagan Holly MD Monocytes (Bld) [#/Vol] 0.392 10*3/uL Normal 200-950 [facility] Comment on above: Performed By: #### 6 399, 7600, 63364 #### [facility] [place] [address] [employer]: Keagan Holly MD Monocytes/100 WBC (Bld) 7.4 % Normal [facility] Comment on above: Performed By: #### 6 399, 7600, 75572 #### [facility] of [place] [address] [employer]: Keagan Holly MD Neutrophils (Bld) [#/Vol] 2.724 10*3/uL Normal 4321-5077 [facility] Comment on above: Performed By: #### 6 399, 7600, 86114 #### [facility] of [place] [address] [employer]: Keagan Holly MD Neutrophils/100 WBC (Bld) 51.4 % Normal [facility] Comment on above: Performed By: #### 6 399, 7600, 93023 #### [facility] [place] [address] [employer]: Keagan Holly MD Platelet mean volume (Bld) [Entitic vol] 9.1 fL Normal 7.5-12.5 [facility] Comment on above: Performed By: #### 6 399, 7600, 06912 #### [facility] [place] [address] [employer]: Keagan Holly MD Platelets (Bld) [#/Vol] 335 10*3/uL Normal 140-400 [facility] Comment on above: Performed By: #### 6 399, 7600, 95594 #### [facility] of [place] [address] [employer]: Keagan Holly MD RBC (Bld) [#/Vol] 4.18 10*6/uL Normal 3.80-5.10 [facility] Comment on above: Performed By: #### 6 399, 7600, 56956 #### [facility] of [place] [address] [employer]: Keagan Holly MD WBC (Bld) [#/Vol] 5.3 10*3/uL Normal 3.8-10.8 [facility] Comment on above: Performed By: #### 6 399, 7600, 09633 #### [facility] of [address], [address] [place] [address] [employer]: Keagan Holly MD [facility] METABOLIC [facility] 08-04-2024 Albumin [Mass/Vol] 4.4 g/dL Normal 3.6-5.1 [facility] Comment on above: Performed By: #### 6 399, 7600, 90411 #### [facility] of [address], [address] [place] [address] [employer]: Keagan Holly MD Albumin/Globulin [Mass ratio] 1.8 {ratio} Normal 1.0-2.5 [facility] Comment on above: Performed By: #### 6 399, 7600, 92880 #### [facility] of [place] [address] [employer]: Keagan oHlly MD ALP [Catalytic activity/Vol] 68 U/L Normal 37-153 [facility] Comment on above: Performed By: #### 6 399, 7600, 79181 #### [facility] of [place] [address] [employer]: Keagan Holly MD ALT [Catalytic activity/Vol] 15 U/L Normal 6-29 [facility] Comment on above: Performed By: #### 6 399, 7600, 18246 #### [facility] of [place] [address] [employer]: Keagan Holly MD AST [Catalytic activity/Vol] 18 U/L Normal 10-35 [facility] Comment on above: Performed By: #### 6 399, 7600, 71456 #### [facility] of [place] [address] [employer]: Keagan Holly MD Bilirubin [Mass/Vol] 0.5 mg/dL Normal 0.2-1.2 [facility] Comment on above: Performed By: #### 6 399, 7600, 30396 #### [facility] of [address] [place] [address] [employer]: Keagan Holly MD BUN/CREATININE RATIO SEE NOTE: Normal 6- [facility] Comment on above: Result Comment: Not Reported: BUN and Creatinine are within reference range. Performed By: #### 6 399, 7600, 15553 #### [facility] of [address], [address] [place] [address] [employer]: Keagan Holly MD Calcium [Mass/Vol] 9.5 mg/dL Normal 8.6-10.4 [facility] Comment on above: Performed By: #### 6 399, 7600, 94197 #### [facility] of [address], [address] [place] [address] [employer]: Keagan Holly MD Chloride [Moles/Vol] 100 mmol/L Normal 98-110 [facility] Comment on above: Performed By: #### 6 399, 7600, 17501 #### [facility] of [address], [address] [place] [address] [employer]: Keagan Holly MD CO2 [Moles/Vol] 31 mmol/L Normal 20-32 [facility] Comment on above: Performed By: #### 6 399, 7600, 90859 #### [facility] of [place] [address] [employer]: Keagan Holly MD Creatinine [Mass/Vol] 0.74 mg/dL Normal 0.60-1.00 [facility] Comment on above: Performed By: #### 6 399, 7600, 83193 #### [facility] of [address], [address] [place] [address] [employer]: Keagan Holly MD GFR/1.73 sq M.predicted among non-blacks MDRD (S/P/Bld) [Vol rate/Area] 84 mL/min/{1.73_m2} Normal > OR = 60 [facility] Comment on above: Performed By: #### 6 399, 7600, 11330 #### [facility] of [address], [address] [place] [address] [employer]: Keagan Holly MD Globulin (S) [Mass/Vol] 2.5 g/dL Normal 1.9-3.7 [facility] Comment on above: Performed By: #### 6 399, 7600, 43301 #### [facility] of [place] [address] [employer]: Keagan Holly MD Glucose [Mass/Vol] 88 mg/dL Normal 65-99 [facility] Comment on above: Result Comment: Fasting reference interval Performed By: #### 6 399, 7600, 65694 #### [facility] of [place] [address] [employer]: Keagan Holly MD Potassium [Moles/Vol] 4.0 mmol/L Normal 3.5-5.3 [facility] Comment on above: Performed By: #### 6 399, 7600, 43065 #### [facility] of [place] [address] [employer]: Keagan Holly MD Protein [Mass/Vol] 6.9 g/dL Normal 6.1-8.1 [facility] Comment on above: Performed By: #### 6 399, 7600, 32295 #### [facility] of [place] [address] [employer]: Keagan Holly MD Sodium [Moles/Vol] 138 mmol/L Normal 135-146 [facility] Comment on above: Performed By: #### 6 399, 7600, 73779 #### [facility] of [place] [address] [employer]: Keagan Holly MD Urea nitrogen [Mass/Vol] 16 mg/dL Normal 7-25 [facility] Comment on above: Performed By: #### 6 399, 7600, 03367 #### [facility] of [place] [address] [employer]: Keagan Holly MD LIPID PANEL, [facility] 07-22 Cholesterol [Mass/Vol] 261 mg/dL High <200 [facility] Comment on above: Order Comment: FASTI NG:YES FASTING: YES Performed By: #### 6 399, 7600, 99330 #### [facility] [address], [address] [place], [place] [id number] [employer]: Keagan Holly MD Cholesterol in HDL [Mass/Vol] 66 mg/dL Normal > OR = 50 [facility] Comment on above: Order Comment: FASTI NG:YES FASTING: YES Performed By: #### 6 399, 7600, 99756 #### [facility] [address], [address] [place] [address] [employer]: Keagan Holly MD Cholesterol in LDL [Mass/Vol] [...] LDL-C. Edwin SS et al. LUL. 2013;310(19): 1958-4366 (http://education.zhouwu/faq/GMH946) Performed By: #### 6 399, 7600, 29127 #### [facility] [address], [address] [place] [address] [employer]: Keagan Holly MD Cholesterol.total/C holesterol in HDL [Mass ratio] 4.0 {ratio} Normal <5.0 [facility] Comment on above: Order Comment: FASTI NG:YES FASTING: YES Performed By: #### 6 399, 7600, 35600 #### [facility] [address], [address] [place], [place] [id number] [employer]: Keagan Holly MD NON HDL CHOLESTEROL 195 mg/dL (calc) High <130 [facility] Comment on above: Order Comment: FASTI NG:YES FASTING: YES Result Comment: For patients with diabetes plus 1 major ASCVD risk factor, treating to a non-HDL-C goal of <100 mg/dL (LDL-C of <70 mg/dL) is considered a therapeutic option. Performed By: #### 6 399, 7600, 16683 #### [facility] [address], [address] [place] [address] [employer]: Keagan Holly MD Triglyceride [Mass/Vol] 181 mg/dL High <150 [facility] Comment on above: Order Comment: FASTI NG:YES FASTING: YES Performed By: #### 6 399, 7600, 48243 #### [facility] [address], [address] [place] [address] [employer]: Keagan Holly MD VITAMIN D,25-OH,TOTAL,IAon 0 08-04-2024 [...] D, (D2,D3), LC/MS/MS is recommended: order code 63668 (patients >2yrs). See Note 1 Note 1 For additional information, please refer to http://education.zhouwu/faq/LCC925 (This link is being provided for informational/ educational purposes only.) Performed By: #### 6 399, 7600, 54666 #### [facility] [address], [address] [place] [address] [employer]: Keagan Holly MD CT COLONOGRAPHY SCREENINGon 01-21-2024 [...] or absence of which will not change control coordinator of the patient. In addition, digital rectal [...] Curry MD on 01/21/2024 8:17 AM Normal [facility] Cult,Bloodon 10-31-2023 Cult,Blood Specimen Description .BLOOD Special Requests 20ML RAC Culture NO GROWTH 5 DAYS Report Status FINAL 10/31/2023 Normal [facility] Comment on above: Performed By: #### B C #### [facility] [address] [place], [place] [id number] Labor Contract Analyst: Ayden Regan MD Cult,Blood Specimen Description .BLOOD Special Requests 20ML LFT WRIST Culture NO GROWTH 5 DAYS Report Status FINAL 10/31/2023 Normal [facility] Comment on above: Performed By: #### B C #### [facility] [address] [place], [place] [id number] Labor Contract Analyst: Ayden Regan MD CBC with Diffon 10-27-2023 Abs. Basophil 0.03 k/uL Normal 0.00-0.20 [facility] Comment on above: Performed By: #### L ACDS #### [address] [place], [place] [address] Labor Contract Analyst: Ayden Regan MD Abs.Imm.Granulocyte 0.03 k/uL Normal 0.00-0.30 [facility] Comment on above: Performed By: #### L ACDS #### [address] [place], [place] [address] Labor Contract Analyst: Ayden Regan MD Abs.Neutrophil (Seg) 7.25 k/uL Normal 1.50-8.10 [facility] Comment on above: Performed By: #### L ACDS #### [address] [place], [place] [address] Labor Contract Analyst: Ayden Regan MD Basophils/100 WBC (Bld) 0 % Normal 0-2 [facility] Comment on above: Performed By: #### L ACDS #### [address] [place], [place] [address] Labor Contract Analyst: Ayden Regan MD Eosinophils (Bld) [#/Vol] 0.04 10*3/uL Normal 0.00-0.44 [facility] Comment on above: Performed By: #### L ACDS #### [facility] [address] [place], [place] [address] Labor Contract Analyst: Ayden Regan MD Eosinophils/100 WBC (Bld) 0 % Low 1-4 [facility] Comment on above: Performed By: #### L ACDS #### [address] [place], [place] [address] Labor Contract Analyst: Ayden Regan MD Erythrocyte distribution width (RBC) [Ratio] 12.5 % Normal 11.8-14.4 [facility] Comment on above: Performed By: #### L ACDS #### [address] [place], [facility]83 Labor Contract Analyst: Adyen Regan MD Hematocrit (Bld) [Volume fraction] 29.2 % Low 36.3-47.1 [facility] Comment on above: Performed By: #### L ACDS #### [address] [place], [facility]83 Labor Contract Analyst: Ayden Regan MD Hemoglobin (Bld) [Mass/Vol] 9.7 g/dL Low 11.9-15.1 [facility] Comment on above: Performed By: #### L ACDS #### [address] [place], [place] [address] Labor Contract Analyst: Ayden Regan MD Immature granulocytes/100 WBC (Bld) 0 % Normal 0 [facility] Comment on above: Performed By: #### L ACDS #### [address] [place], [facility]83 Labor Contract Analyst: Ayden Regan MD Lymphocytes (Bld) [#/Vol] 1.83 10*3/uL Normal 1.10-3.70 [facility] Comment on above: Performed By: #### L ACDS #### [address] [place], [place] [address] Labor Contract Analyst: Ayden Regan MD Lymphocytes/100 WBC (Bld) 18 % Low 24-43 [facility] Comment on above: Performed By: #### L ACDS #### [facility] [address] [place], [place] [address] Labor Contract Analyst: Ayden Regan MD MCH (RBC) [Entitic mass] 30.1 pg Normal 25.2-33.5 [facility] Comment on above: Performed By: #### L ACDS #### [facility] [address] [place], [place] [address] Labor Contract Analyst: Ayden Regan MD MCHC (RBC) [Mass/Vol] 33.2 g/dL Normal 28.4-34.8 [facility] Comment on above: Performed By: #### L ACDS #### [address] [place], [place] [address] Labor Contract Analyst: Ayden Regan MD MCV (RBC) [Entitic vol] 90.7 fL Normal 82.6-102.9 [facility] Comment on above: Performed By: #### L ACDS #### [address] [place], [place] [address] Labor Contract Analyst: Ayden Regan MD Monocytes (Bld) [#/Vol] 1.02 10*3/uL Normal 0.10-1.20 [facility] Comment on above: Performed By: #### L ACDS #### [facility] [address] [place], [facility]83 Labor Contract Analyst: Ayden Regan MD Monocytes/100 WBC (Bld) 10 % Normal 3-12 [facility] Comment on above: Performed By: #### L ACDS #### [facility] [address] [place], [place] [id number] Labor Contract Analyst: Ayden Regan MD Neutrophil (Seg) 71 % High 36-65 [facility] Comment on above: Performed By: #### L ACDS #### [facility] [address] [place], [place] [address] Labor Contract Analyst: Ayden Regan MD NRBC Automated 0.0 per 100 WBC Normal 0.0 [facility] Comment on above: Performed By: #### L ACDS #### [facility] [address] [place], [facility]83 Labor Contract Analyst: Ayden Regan MD Platelet mean volume (Bld) [Entitic vol] 8.7 fL Normal 8.1-13.5 [facility] Comment on above: Performed By: #### L ACDS #### [address] [place] [address] Labor Contract Analyst: Ayden Regan MD Platelets (Bld) [#/Vol] 237 10*3/uL Normal 138-453 [facility] Comment on above: Performed By: #### L ACDS #### [address] [place], [place] [address] Labor Contract Analyst: Ayden Regan MD RBC (Bld) [#/Vol] 3.22 10*6/uL Low 3.95-5.11 [facility] Comment on above: Performed By: #### L ACDS #### [address] [place], [facility]83 Labor Contract Analyst: Ayden Regan MD WBC (Bld) [#/Vol] 10.2 10*3/uL Normal 3.5-11.3 [facility] Comment on above: Performed By: #### L ACDS #### [address] [place], [place] [address] Labor Contract Analyst: Ayden Regan MD Comp Metabolic Pr/rfx MGon 0 10-27-2023 Albumin [Mass/Vol] 3.1 g/dL Low 3.5-5.2 [facility] Comment on above: Performed By: #### L ACDS #### [address] [place], [place] [address] Labor Contract Analyst: Ayden Regan MD Albumin/Glob Ratio 1.3 Normal 1.0-2.5 [facility] Comment on above: Performed By: #### L ACDS #### [facility] [address] [place], [place] [address] Labor Contract Analyst: Ayden Regan MD Alkaline Phos 80 U/L Normal 35-104 [facility] Comment on above: Performed By: #### L ACDS #### [facility] [address] [place], [place] [address] Labor Contract Analyst: Ayden Regan MD ALT [Catalytic activity/Vol] 9 U/L Normal 5-33 [facility] Comment on above: Performed By: #### L ACDS #### [facility] [address] [place], [place] [address] Labor Contract Analyst: Ayden Regan MD Anion gap [Moles/Vol] 8 mmol/L Low 9-17 [facility] Comment on above: Performed By: #### L ACDS #### [facility] [address] [place] [address] Dr[address] [place], [place] 3542[address] Labor Contract Analyst: Ayden Regan MD AST [Catalytic activity/Vol] 13 U/L Normal <32 [facility] Comment on above: Performed By: #### L ACDS #### [facility] [address] [place], [place] [address] Labor Contract Analyst: Ayden Regan MD Bilirubin [Mass/Vol] 0.6 mg/dL Normal 0.3-1.2 [facility] Comment on above: Performed By: #### L ACDS #### [facility] [address] [place] [address] Labor Contract Analyst: Ayden Regan MD BUN/CRE Ratio 16 Normal 9-20 [facility] Comment on above: Performed By: #### L ACDS #### [facility] [address] [place] [address] Labor Contract Analyst: Ayden Regan MD Calcium [Mass/Vol] 8.2 mg/dL Low 8.6-10.4 [facility] Comment on above: Performed By: #### L ACDS #### [facility] [address] [place], [place] [address] Labor Contract Analyst: Ayden Regan MD Chloride [Moles/Vol] 106 mmol/L Normal 98-107 [facility] Comment on above: Performed By: #### L ACDS #### [facility] [address] [place], [place] [address] Labor Contract Analyst: Ayden Regan MD CO2 [Moles/Vol] 26 mmol/L Normal 20-31 [facility] Comment on above: Performed By: #### L ACDS #### [facility] [address] [place], [place] [address] Labor Contract Analyst: Ayden Regan MD Creatinine [Mass/Vol] 0.7 mg/dL Normal 0.5-0.9 [facility] Comment on above: Performed By: #### L ACDS #### [facility] [address] [place] [address] Labor Contract Analyst: Ayden Regan MD GFR/1.73 sq M.predicted among non-blacks MDRD (S/P/Bld) [Vol rate/Area] mL/min/{1.73_m2} Normal >60 [facility] Comment on above: Result Comment: These [...] secretion. Performed By: #### L ACDS #### [facility] [facility] [address] [place], [place] [id number] Labor Contract Analyst: Ayden Regan MD Glucose [Mass/Vol] 97 mg/dL Normal 70-99 [facility] Comment on above: Performed By: #### L ACDS #### [facility] [address] [place], [place] 8581883 Labor Contract Analyst: Ayden Regan MD Potassium [Moles/Vol] 3.6 mmol/L Low 3.7-5.3 [facility] Comment on above: Performed By: #### L ACDS #### [facility] [address] [place], [place] [id number] Labor Contract Analyst: Ayden Regan MD Protein [Mass/Vol] 5.4 g/dL Low 6.4-8.3 [facility] Comment on above: Performed By: #### L ACDS #### [facility] [address] [place] [address] [address] [place], [place] 4053483 Labor Contract Analyst: Ayden Regan MD Sodium [Moles/Vol] 140 mmol/L Normal 135-144 [facility] Comment on above: Performed By: #### L ACDS #### [address] [place], [place] 4006383 Labor Contract Analyst: Ayden Regan MD Urea nitrogen [Mass/Vol] 11 mg/dL Normal 8-23 [facility] Comment on above: Performed By: #### L ACDS #### [facility] [address] [place], [place] [id number] Labor Contract Analyst: Ayden Regan MD Cult,Urineon 10-27-2023 Cult,Urine Specimen Description .URINE,STRAIGHT CATHETER Culture STREPTOCOCCI, BETA HEMOLYTIC GROUP B 10 to 50,000 CFU/ML Report Status FINAL 10/27/2023 Normal [facility] Comment on above: Performed By: #### U RC #### [address] [id number] Labor Contract Analyst: Nahum Nixon MD [facility] [address] [place] [address] Labor Contract Analyst: Ayden Regan MD Procalcitoninon 10-27-2023 Procalcitonin 0.06 ng/mL Normal 0.00-0.09 [facility] Comment on above: Result [...] entered into the Change in Procalcitonin Calculator ([email or web address]) to determine the patient's Mortality Risk Prognosis In healthy neonates, plasma Procalcitonin (PCT) concentrations increase gradually after , reaching peak values at about 24 hours of age then decrease to normal values below 0.5 ng/mL by 48-72 hours of age. Performed By: #### P RCAL #### [address] [id number] Labor Contract Analyst: Nahum Nixon MD CBC with Diffon 10-26-2023 Abs. Basophil 0.04 k/uL Normal 0.00-0.20 [facility] Comment on above: Performed By: #### T BRETT MELENDEZ, CP #### [facility] [address] [place] [address] Labor Contract Analyst: Ayden Regan MD Abs.Imm.Granulocyte 0.04 k/uL Normal 0.00-0.30 [facility] Comment on above: Performed By: #### T BRETT MELENDEZ, CP #### [facility] [address] [place] [address] Labor Contract Analyst: Ayden Regan MD Abs.Neutrophil (Seg) 9.87 k/uL High 1.50-8.10 [facility] Comment on above: Performed By: #### BRETT ALMANZA, CP #### [address] [place], [facility]83 Labor Contract Analyst: Ayden Regan MD Basophils/100 WBC (Bld) 0 % Normal 0-2 [facility] Comment on above: Performed By: #### BRETT ALMANZA, CP #### [address] [place] [id number] Labor Contract Analyst: Ayden Regan MD Eosinophils (Bld) [#/Vol] 0.06 10*3/uL Normal 0.00-0.44 [facility] Comment on above: Performed By: #### BRETT ALMANZA, CP #### [address] [place], [place] [address] Labor Contract Analyst: Ayden Regan MD Eosinophils/100 WBC (Bld) 1 % Normal 1-4 [facility] Comment on above: Performed By: #### BRETT ALMANZA, CP #### [address] [place], [facility]83 Labor Contract Analyst: Ayden Regan MD Erythrocyte distribution width (RBC) [Ratio] 12.1 % Normal 11.8-14.4 [facility] Comment on above: Performed By: #### BRETT ALMANZA, CP #### [address] [place], [facility]83 Labor Contract Analyst: Ayden Regan MD Hematocrit (Bld) [Volume fraction] 37.2 % Normal 36.3-47.1 [facility] Comment on above: Performed By: #### BRETT ALMANZA, CP #### [address] [place], [facility]83 Labor Contract Analyst: Ayden Regan MD Hemoglobin (Bld) [Mass/Vol] 12.6 g/dL Normal 11.9-15.1 [facility] Comment on above: Performed By: #### BRETT ALMANZA, CP #### [address] [place], [place] [id number] Labor Contract Analyst: Ayden Regan MD Immature granulocytes/100 WBC (Bld) 0 % Normal 0 [facility] Comment on above: Performed By: #### BRETT ALMANZA, CP #### [address] [place] [address] Labor Contract Analyst: Ayden Regan MD Lymphocytes (Bld) [#/Vol] 0.81 10*3/uL Low 1.10-3.70 [facility] Comment on above: Performed By: #### BRETT ALMANZA, CP #### [address] [place], [facility]83 Labor Contract Analyst: Ayden Regan MD Lymphocytes/100 WBC (Bld) 7 % Low 24-43 [facility] Comment on above: Performed By: #### BRETT ALMANZA, CP #### [address] [place], [place] 3370283 Labor Contract Analyst: Ayden Regan MD MCH (RBC) [Entitic mass] 30.4 pg Normal 25.2-33.5 [facility] Comment on above: Performed By: #### BRETT ALMANZA, CP #### [address] [place], [place] 2432583 Labor Contract Analyst: Ayden Regan MD MCHC (RBC) [Mass/Vol] 33.9 g/dL Normal 28.4-34.8 [facility] Comment on above: Performed By: #### BRETT ALMANZA, CP #### [address] [place], [place] 0815083 Labor Contract Analyst: Ayden Regan MD MCV (RBC) [Entitic vol] 89.9 fL Normal 82.6-102.9 [facility] Comment on above: Performed By: #### BRETT ALMANZA, CP #### [facility] [address] [place] [address] Dr[place], [place] 3161283 Labor Contract Analyst: Ayden Regan MD Monocytes (Bld) [#/Vol] 0.89 10*3/uL Normal 0.10-1.20 [facility] Comment on above: Performed By: #### BRETT ALMANZA, CP #### [address] [place] [address] Labor Contract Analyst: Ayden Regan MD Monocytes/100 WBC (Bld) 8 % Normal 3-12 [facility] Comment on above: Performed By: #### BRETT ALMANZA, CP #### [address] [place], [place] [address] Labor Contract Analyst: Ayden Regan MD Neutrophil (Seg) 84 % High 36-65 [facility] Comment on above: Performed By: #### BRETT ALMANZA, CP #### [address] [place], [place] 2044483 Labor Contract Analyst: Ayden Regan MD NRBC Automated 0.0 per 100 WBC Normal 0.0 [facility] Comment on above: Performed By: #### BRETT ALMANZA, CP #### [address] [place], [facility]83 Labor Contract Analyst: Ayden Regan MD Platelet mean volume (Bld) [Entitic vol] 8.5 fL Normal 8.1-13.5 [facility] Comment on above: Performed By: #### BRETT ALMANZA, CP #### [address] [place] [address] Labor Contract Analyst: Ayden Regan MD Platelets (Bld) [#/Vol] 312 10*3/uL Normal 138-453 [facility] Comment on above: Performed By: #### T BRETT MELENDEZ, CP #### [facility] [address] [place], [place] [phone] Labor Contract Analyst: Ayden Regan MD RBC (Bld) [#/Vol] 4.14 10*6/uL Normal 3.95-5.11 [facility] Comment on above: Performed By: #### T BRETT MELENDEZ, CP #### [facility] [address] [place], [place] [id number] Labor Contract Analyst: Ayden Regan MD WBC (Bld) [#/Vol] 11.7 10*3/uL High 3.5-11.3 [facility] Comment on above: Performed By: #### T BRETT MELENDEZ, CP #### [facility] [address] [place] 8474783 Labor Contract Analyst: Ayden Regan MD CT HEAD WO CONTRASTon [...] Seven Moreno MD 10/26/23 Final result Normal [facility] Comp Metabolic Profon 2023 Albumin [Mass/Vol] 3.9 g/dL Normal 3.5-5.2 [facility] Comment on above: Performed By: #### T BRETT MELENDEZ, CP #### [facility] [address] [place], [place] 7451383 Labor Contract Analyst: Ayden Regan MD Albumin/Glob Ratio 1.2 Normal 1.0-2.5 [facility] Comment on above: Performed By: #### T BRETT MELENDEZ, CP #### [facility] [address] [place], [place] 5663783 Labor Contract Analyst: Ayden Regan MD Alkaline Phos 87 U/L Normal 35-104 [facility] Comment on above: Performed By: #### T RBETT MELENDEZ, CP #### [facility] [address] [place], [place] [id number] Labor Contract Analyst: Ayden Regan MD ALT [Catalytic activity/Vol] 12 U/L Normal 5-33 [facility] Comment on above: Performed By: #### T BRETT MELENDEZ, CP #### [facility] [address] [place], [place] 2070183 Labor Contract Analyst: Ayden Regan MD Anion gap [Moles/Vol] 9 mmol/L Normal 9-17 [facility] Comment on above: Performed By: #### T BRETT MELENDEZ, CP #### [facility] [address] [place], [place] 8647083 Labor Contract Analyst: Ayden Regan MD AST [Catalytic activity/Vol] 15 U/L Normal <32 [facility] Comment on above: Performed By: #### T BRETT MELENDEZ, CP #### [facility] [address] [place], [place] 2085383 Labor Contract Analyst: Ayden Regan MD Bilirubin [Mass/Vol] 0.4 mg/dL Normal 0.3-1.2 [facility] Comment on above: Performed By: #### T BRETT MELENDEZ, CP #### [facility] [address] [place] [address] Labor Contract Analyst: Ayden Regan MD BUN/CRE Ratio 16 Normal 9-20 [facility] Comment on above: Performed By: #### T BRETT MELENDEZ, CP #### [facility] [address] [place], [place] 8181583 Labor Contract Analyst: Ayden Regan MD Calcium [Mass/Vol] 9.2 mg/dL Normal 8.6-10.4 [facility] Comment on above: Performed By: #### T BRETT MELENDEZ, CP #### [facility] [address] [place], [place] 2138783 Labor Contract Analyst: Ayden Regan MD Chloride [Moles/Vol] 95 mmol/L Low 98-107 [facility] Comment on above: Performed By: #### BRETT ALMANZA, CP #### [facility] [address] [place] [address] Labor Contract Analyst: Ayden Regan MD CO2 [Moles/Vol] 26 mmol/L Normal 20-31 [facility] Comment on above: Performed By: #### BRETT ALMANZA, CP #### [facility] [address] [place] [address] [place] [address] Labor Contract Analyst: Ayden Regan MD Creatinine [Mass/Vol] 0.8 mg/dL Normal 0.5-0.9 [facility] Comment on above: Performed By: #### BRETT ALMANZA, CP #### [facility] [address] [place] [address] Labor Contract Analyst: Ayden Regan MD GFR/1.73 sq M.predicted among non-blacks MDRD (S/P/Bld) [Vol rate/Area] 77 mL/min/{1.73_m2} Normal >60 [facility] Comment on above: Result Comment: These [...] By: #### T BRETT MELENDEZ, CP #### [facility] [address] [place] [address] [place] [address] Labor Contract Analyst: Ayden Regan MD Glucose [Mass/Vol] 119 mg/dL High 70-99 [facility] Comment on above: Performed By: #### BRETT ALMANZA, CP #### [address] [place], [place] 6279983 Labor Contract Analyst: Ayden Regan MD Potassium [Moles/Vol] 3.8 mmol/L Normal 3.7-5.3 [facility] Comment on above: Performed By: #### BRETT ALMANZA, CP #### [address] [place], [place] 8810083 Labor Contract Analyst: Ayden Regan MD Protein [Mass/Vol] 7.2 g/dL Normal 6.4-8.3 [facility] Comment on above: Performed By: #### BRETT ALMANZA, CP #### [address] [place], [place] 3739783 Labor Contract Analyst: Ayden Regan MD Sodium [Moles/Vol] 130 mmol/L Low 135-144 [facility] Comment on above: Performed By: #### BRETT ALMANZA, CP #### [address] [place] [address] Labor Contract Analyst: Ayden Regan MD Urea nitrogen [Mass/Vol] 13 mg/dL Normal 8-23 [facility] Comment on above: Performed By: #### BRETT ALMANZA, CP #### [facility] [address] [place], [place] 7823183 Labor Contract Analyst: Ayden Regan MD Lactate, Sepsison 10-26-2023 Lactic Acid, Sepsis 1.0 mmol/L Normal 0.5-1.9 [facility] Comment on above: Performed By: #### L ACDS #### [facility] [address] [place] [address] [place], [place] 2253383 Labor Contract Analyst: Ayden Regan MD Lactic Acid, Sepsis 1.6 mmol/L Normal 0.5-1.9 [facility] Comment on above: Performed By: #### L ACDS #### [address] [place], [place] 2164283 Labor Contract Analyst: Ayden Regan MD Troponinon 10-26-2023 Troponin, High Sens 12 ng/L Normal 0-14 [facility] Comment on above: Result Comment: High Sensitivity Troponin values cannot be compared with other Troponin methodologies. Performed By: #### L ACDS #### [address] [place], [place] 2481083 Labor Contract Analyst: Ayden Regan MD Troponin, High Sens 12 ng/L Normal 0-14 [facility] Comment on above: Result Comment: High Sensitivity Troponin values cannot be compared with other Troponin methodologies. Performed By: #### T ROPI, CDP, CP #### [facility] [address] [place] [address] Dr[place], [place] 8276283 Labor Contract Analyst: Ayden Regan MD Urinalysis w/ Microon 2023 Bilirubin, SemiQt,Ur Negative Normal NEG [facility] Comment on above: Performed By: #### L ACDS #### [address] [place], [place] 6403483 Labor Contract Analyst: Ayden Regan MD Blood, Urine Negative Normal NEG [facility] Comment on above: Performed By: #### L ACDS #### [facility] [address] [place] [address] Dr[place], [place] 3517183 Labor Contract Analyst: Ayden Regan MD Clarity (U) Clear Normal CLEAR [facility] Comment on above: Performed By: #### L ACDS #### [facility] [address] [place], [place] 6486583 Labor Contract Analyst: Ayden Regan MD Color (U) Yellow Normal YEL [facility] Comment on above: Performed By: #### L ACDS #### [facility] [address] [place], [place] 9853383 Labor Contract Analyst: Ayden Regan MD Epithelial cells LM Ql (Urine sed) 0 TO 2 Normal 0-25 [facility] Comment on above: Performed By: #### L ACDS #### [facility] [address] [place] [address] [place], [place] 1003283 Labor Contract Analyst: Ayden Regan MD Glucose Ql (U) Negative Normal NEG [facility] Comment on above: Performed By: #### L ACDS #### [facility] [address] [place] [address] [place], [place] 2253583 Labor Contract Analyst: Ayden Regan MD Ketones Ql (U) Negative Normal NEG [facility] Comment on above: Performed By: #### L ACDS #### [facility] [address] [place] [address] [place], [place] 2980183 Labor Contract Analyst: Ayden Regan MD Leukocyte esterase Test strip Ql (U) Negative Normal NEG [facility] Comment on above: Performed By: #### L ACDS #### [facility] [address] [place] [address] Dr[place], [place] 7531583 Labor Contract Analyst: Ayden Regan MD Nitrite,Ur Negative Normal NEG [facility] Comment on above: Performed By: #### L ACDS #### [facility] [address] [place] [address] [place], [place] 3139083 Labor Contract Analyst: Ayden Regan MD PH,Ur 6.5 Normal 5.0-9.0 [facility] Comment on above: Performed By: #### L ACDS #### [facility] [address] [place], [place] 3943083 Labor Contract Analyst: Ayden Regan MD Protein Ql (U) Negative Normal NEG [facility] Comment on above: Performed By: #### L ACDS #### [facility] [address] [place], [place] 7647383 Labor Contract Analyst: Ayden Regan MD Spec. [place],Ur 1.010 Normal 1.010-1.020 [facility] Comment on above: Performed By: #### L ACDS #### [facility] [address] [place] [address] Dr[place], [place] 8753383 Labor Contract Analyst: Ayden Regan MD Urine RBC's None Normal 0-2 [facility] Comment on above: Performed By: #### L ACDS #### [facility] [address] [place] [address] Dr[place], [place] 9063583 Labor Contract Analyst: Ayden Regan MD Urine WBC's None Normal 0-5 [facility] Comment on above: Performed By: #### L ACDS #### [facility] [address] [place] [address] [place], [place] 5639483 Labor Contract Analyst: Ayden Regan MD Urobilinogen,Ur Normal Normal 0.0-1.0 [facility] Comment on above: Performed By: #### L ACDS #### [facility] [address] [place] [address] [place], [place] [phone] Labor Contract Analyst: Ayden Regan MD XR CHEST PORTABLEon 10-26-19 [...] Ayden Siegel MD 10/26/23 Final result Normal [facility] ACID FAST SMEAR AND CXon Acid Fast Culture Negative Normal [facility] Comment on above: Result Comment: No a broderick fast bacilli isolated after 6 weeks. Performed By: #### A FB #### [facility] [address] [place] [address] Dr. Shari Allen Acid Fast Smear Negative Normal [facility] Comment on above: Performed By: #### A FB #### [facility] [address] [place] [address] Dr. Shari [employer] Specimen Processing Concentration Normal [facility] Comment on above: Performed By: #### A FB #### [facility] [address] [place] [address] Dr. Shari Allen FUNGAL CULTUREon 2022 Fungus (Mycology) Culture Final report [facility] Comment on above: Performed By: #### C XFUN #### [facility] [address] [place] [address] Dr. Shari Allen Fungus Stain Final report Normal [facility] Comment on above: Performed By: #### C XFUN #### [facility] [address] [place] [address] Dr. Shari Allen Result 1 Comment Normal [facility] Comment on above: Result Comment: CHINO/ Calcofluor preparation: no fungus observed. Performed By: #### C XFUN #### [facility] [address] [place] [address] Dr. Shari Allen Result Comment: No y east or mold isolated after 4 weeks. CULTURE ANAEROBICon 10-23-19 23 CULTURE ANAEROBIC Culture Observations : NO GROWTH OF ANAEROBES AT 72 HOURS. Normal [facility] Comment on above: Performed By: #### C XFUN #### [facility] [address] [place] [address] [address] Shari Allen CULTURE OTHERon 10-22-2022 CULTURE OTHER Culture Observations : Light growth of NORMAL SKIN MARTHA. Culture Observations: NO GROWTH OF ANAEROBES AT 72 HOURS. Normal [facility] Comment on above: Performed By: #### C XFUN #### [facility] [address] [address] [address] Shari Allen GRAM STAINon 10-22-2022 COMMENTS NO ORGANISMS OBSERVED Normal [facility] Comment on above: Performed By: #### G STAIN #### [facility] [address] [place] [address] Dr. Shari Allen DIPHTHEROIDS Normal [facility] Comment on above: Performed By: #### G STAIN #### [facility] [address] [place] [address] Dr. Shari Allen EPITHELIALS [facility] Comment on above: Performed By: #### G STAIN #### [facility] [address] [place] [address] Dr. Shari Allen FUNGAL ELEMENTS Normal [facility] Comment on above: Performed By: #### G STAIN #### [facility] [address] [place] [address] Dr. Shari YEPEZ NEG BACILLI [facility] Comment on above: Performed By: #### G STAIN #### [facility] [address] [place] [address] Dr. Shari Allen GRAM NEG DIPPLOCOCCI Normal [facility] Comment on above: Performed By: #### G STAIN #### [facility] [address] [place] [address] Dr. Shari YEPEZ POS BACILLI Normal [facility] Comment on above: Performed By: #### G STAIN #### [facility] [address] [place] [address] Dr. Shari Allen GRAM POSITIVE COCCI Normal [facility] Comment on above: Performed By: #### G STAIN #### [facility] [address] [place] [address] Dr. Shari Allen GRAM STAIN SOURCE Rt 2nd Toe Normal [facility] Comment on above: Performed By: #### G STAIN #### [facility] [address] [address] [address] Shari Allen GS_DIPTH Normal [facility] Comment on above: Performed By: #### G STAIN #### [facility] [address] [place] [address] Dr. Shari Allen WBC RARE Normal [facility] Comment on above: Performed By: #### G STAIN #### [facility] [address] [address] [address] Shari Allen POINT OF CARE GLUCOSEon 04-0 Glucose [Mass/Vol] 109 mg/dL Critically high 74-106 [facility] Comment on above: Performed By: #### P OCGLUC #### [facility] [address] [place] [address] Dr. Shari Allen Glucose [Mass/Vol] 89 mg/dL Normal 74-106 [facility] Comment on above: Performed By: #### P OCGLUC #### [facility] [address] [place] [address] Dr. Shari Allen PROF CHEM 8 (BAS METB)on Anion gap [Moles/Vol] 12.2 mmol/L Normal [facility] Comment on above: Performed By: #### B MP #### [facility] [address] [place] [address] Dr. Shari Allen Calcium [Mass/Vol] 9.3 mg/dL Normal 8.5-10.1 [facility] Comment on above: Performed By: #### B MP #### [facility] [address] [place] [address] Dr. Shari Allen Chloride [Moles/Vol] 104 mmol/L Normal 98-107 [facility] Comment on above: Performed By: #### B MP #### [facility] [address] [place] [address] Dr. Shari Allen CO2 [Moles/Vol] 28.5 mmol/L Normal 21.0-32.0 [facility] Comment on above: Performed By: #### B MP #### [facility] [address] [address] [address] Shari Allen Creatinine [Mass/Vol] 0.83 mg/dL Normal 0.55-1.02 [facility] Comment on above: Performed By: #### B MP #### [facility] [address] [place] [address] Dr. Shari Allen EGFR-AF CITIZEN OF [place] >60 Normal >=60 [facility] Comment on above: Performed By: #### B MP #### [facility] [address] [address] [address] Shari Allen EGFR-NON AF CITIZEN OF [place] >60 Normal >=60 [facility] Comment on above: Performed By: #### B MP #### [facility] [address] [address] [address] Shari Allen Glucose [Mass/Vol] 89 mg/dL Normal 74-106 [facility] Comment on above: Performed By: #### B MP #### [facility] [address] [place] [address] Dr. Shari Allen Potassium [Moles/Vol] 3.7 mmol/L Normal 3.5-5.1 [facility] Comment on above: Performed By: #### B MP #### [facility] [address] [address] [address] Shari Allen Sodium [Moles/Vol] 141 mmol/L Normal 136-145 [facility] Comment on above: Performed By: #### B MP #### [facility] [address] [place] [address] Dr. Shari Allen Urea nitrogen [Mass/Vol] 18.0 mg/dL Normal 7.0-18.0 [facility] Comment on above: Performed By: #### B MP #### [facility] [address] [place] [address] Dr. Shari Allen Urea nitrogen/Creatinine [Mass ratio] 21.7 mg/mg Normal [facility] Comment on above: Performed By: #### B MP #### [facility] [address] [place] [address] Dr. Shari Allen POINT OF CARE GLUCOSEon 04-22 Glucose [Mass/Vol] 86 mg/dL Normal 74-106 [facility] Comment on above: Performed By: #### P OCGLUC #### [facility] [address] [place] [address] Dr. Shari Allen Glucose [Mass/Vol] 95 mg/dL Normal 74-106 [facility] Comment on above: Performed By: #### P OCGLUC #### [facility] [address] [place] [address] Dr. Shari Allen CBC AUTO DIFFon 05-07-2022 BASO # 0.0 103/ul Normal 0.0-0.1 [facility] Comment on above: Performed By: #### C BC #### [facility] [address] [place] [address] Dr. Shari Allen Basophils/100 WBC (Bld) 0.5 % Normal 0.2-2.0 [facility] Comment on above: Performed By: #### C BC #### [facility] [address] [place] [address] Dr. Shari Allen EO # 0.2 103/ul Normal 0.0-0.7 [facility] Comment on above: Performed By: #### C BC #### [facility] [address] [place] [address] Dr. Shari Allen Eosinophils/100 WBC (Bld) 2.9 % Normal 0.9-7.0 [facility] Comment on above: Performed By: #### C BC #### [facility] [address] [place] [address] Dr. Shari Allen Erythrocyte distribution width (RBC) [Ratio] 12.6 % Normal 11.0-15.0 [facility] Comment on above: Performed By: #### C BC #### [facility] [address] [place] [address] Dr. Shari Allen Hematocrit (Bld) [Volume fraction] 38.2 % Normal 36.0-48.0 [facility] Comment on above: Performed By: #### C BC #### [facility] [address] [place] [address] Dr. Shari Allen Hemoglobin (Bld) [Mass/Vol] 12.4 g/dL Normal 12.0-16.0 [facility] Comment on above: Performed By: #### C BC #### [facility] [address] [place] [address] Dr. Shari Allen IG # 0.01 10e3/ul Normal 0.00-0.03 [facility] Comment on above: Performed By: #### C BC #### [facility] [address] [place] [address] Dr. Shari Allen IG % 0.2 % Normal 0.0-0.5 [facility] Comment on above: Performed By: #### C BC #### [facility] [address] [place] [address] Dr. Shari Allen LYMPH # 2.0 103/ul Normal 1.2-3.8 [facility] Comment on above: Performed By: #### C BC #### [facility] [address] [place] [address] Dr. Shari Allen Lymphocytes/100 WBC (Bld) 31.7 % Normal 20.5-60.0 [facility] Comment on above: Performed By: #### C BC #### [facility] [address] [place] [address] Dr. Shari Allen MANUAL DIFF REQ NO Normal [facility] Comment on above: Performed By: #### C BC #### [facility] [address] [place] [address] Dr. Shari Allen MCH (RBC) [Entitic mass] 30.7 pg Normal 26.7-34.0 [facility] Comment on above: Performed By: #### C BC #### [facility] [address] [place] [address] Dr. Shari Allen MCHC (RBC) [Mass/Vol] 32.5 g/dL Normal 29.9-35.2 [facility] Comment on above: Performed By: #### C BC #### [facility] [address] [place] [address] Dr. Shari Allen MCV (RBC) [Entitic vol] 94.6 fL Normal 81.0-99.0 [facility] Comment on above: Performed By: #### C BC #### [facility] [address] [address] [address] Shari Allen MONO # 0.5 103/ul Normal 0.3-0.8 [facility] Comment on above: Performed By: #### C BC #### [facility] [address] [address] [address] Shari Allen Monocytes/100 WBC (Bld) 8.6 % Normal 1.7-12.0 [facility] Comment on above: Performed By: #### C BC #### [facility] [address] [place] [address] Dr. Shari Allen NEUT # 3.5 103/ul Normal 1.4-6.5 [facility] Comment on above: Performed By: #### C BC #### [facility] [address] [place] [address] Dr. Shari Allen Neutrophils/100 WBC (Bld) 56.1 % Normal 43.0-75.0 [facility] Comment on above: Performed By: #### C BC #### [facility] [address] [place] [address] Dr. Shari Allen Platelet mean volume (Bld) [Entitic vol] 8.5 fL Critically low 9.5-13.5 [facility] Comment on above: Performed By: #### C BC #### [facility] [address] [place] [address] Dr. Shari Allen PLT 304 103/ul Normal 150-450 [facility] Comment on above: Performed By: #### C BC #### [facility] [address] [place] [address] Dr. Shari Allen RBC 4.04 106/ul Critically low 4.20-5.40 [facility] Comment on above: Performed By: #### C BC #### [facility] [address] [place] [address] Dr. Shari Allen WBC 6.2 103/ul Normal 4.0-11.0 [facility] Comment on above: Performed By: #### C BC #### [facility] [address] [place] [address] Dr. Shari Allen Covid-19 PCR ([facility])on 04-21 SARS-CoV-2 (COVID-19) RNA LEANN+probe Ql (Unsp spec) Not detected Normal NOT DETECTED [facility] Comment on above: Result Comment: This test is not yet approved or cleared by the [place] FDA. When there are no FDA-approved or cleared tests available, and other criteria are met, FDA can make tests available under an emergency access mechanism called an Emergency Use Authorization (EUA). The EUA for this test is supported by the [place] of Health and Human Service's (HHS's) declaration [...] SARS-CoV-2. Performed By: #### C XFUN #### [facility] [address] [place] [address] Dr. Shari Allen PROF CHEM 8 (BAS METB)on Anion gap [Moles/Vol] 11.1 mmol/L Normal [facility] Comment on above: Performed By: #### B MP #### [facility] [address] [place] [address] Dr. Shari Allen Calcium [Mass/Vol] 9.0 mg/dL Normal 8.5-10.1 [facility] Comment on above: Performed By: #### B MP #### [facility] [address] [place] [address] Dr. Shari Allen Chloride [Moles/Vol] 104 mmol/L Normal 98-107 [facility] Comment on above: Performed By: #### B MP #### [facility] [address] [address] [address] Shari Allen CO2 [Moles/Vol] 29.7 mmol/L Normal 21.0-32.0 [facility] Comment on above: Performed By: #### B MP #### [facility] [address] [address] [address] Shari Allen Creatinine [Mass/Vol] 0.80 mg/dL Normal 0.55-1.02 [facility] Comment on above: Performed By: #### B MP #### [facility] [address] [address] [address] Shari Allen EGFR-AF CITIZEN OF [place] >60 Normal >=60 [facility] Comment on above: Performed By: #### B MP #### [facility] [address] [address] [address] Shari Allen EGFR-NON AF CITIZEN OF [place] >60 Normal >=60 [facility] Comment on above: Performed By: #### B MP #### [facility] [address] [address] [address] Shari Allen Glucose [Mass/Vol] 87 mg/dL Normal 74-106 [facility] Comment on above: Performed By: #### B MP #### [facility] [address] [address] [address] Shari Allen Potassium [Moles/Vol] 3.8 mmol/L Normal 3.5-5.1 [facility] Comment on above: Performed By: #### B MP #### [facility] [address] [address] [address] Shari Allen Sodium [Moles/Vol] 141 mmol/L Normal 136-145 [facility] Comment on above: Performed By: #### B MP #### [facility] [address] [address] [address] Shari Allen Urea nitrogen [Mass/Vol] 14.0 mg/dL Normal 7.0-18.0 [facility] Comment on above: Performed By: #### B MP #### [facility] [address] [address] [address] Shari Allen Urea nitrogen/Creatinine [Mass ratio] 17.5 mg/mg Normal [facility] Comment on above: Performed By: #### B #### [facility] [address] [address] [address] Shari Allen Vital Signs Date Time Vital Sign Value Performing Clinician Fox romero 02-23-2025 10:110400 Body height 180.3 cm Nicky Hemmer PA Work Phone: [facility] 02-23-2025 10:11-0400 Body mass index (BMI) [Ratio] 20.33 kg/m2 Nicky Hemmer PA Work Phone: [facility] 02-23-2025 10:11040 Body weight 66.13 kg Nicky Hemmer PA Work Phone: [facility] 02-23-2025 10:11-0400 Diastolic blood pressure 82 mm[Hg] Nicky Hemmer PA Work Phone: [facility] 02-23-2025 10:11-0400 Heart rate 71 /min Nicky Hemmer PA Work Phone: [facility] 02-23-2025 10:11-0400 Respiratory rate 16 /min Nicky Hemmer PA Work Phone: [facility] 02-23-2025 10:11-0400 SaO2% (BldA) [Mass fraction] 96 % Nicky Hemmer PA Work Phone: [facility] 02-23-2025 10:11-0400 Systolic blood pressure 136 mm[Hg] Nicky Hemmer PA Work Phone: [facility] 11-11-2024 09:29-0400 Body height 180.3 cm Tsering Starr DIRECTOR HEALTH Work Phone: [facility] 11-11-2024 09:29-0400 Body mass index (BMI) [Ratio] 20.73 kg/m2 Tsering Starr DIRECTOR HEALTH Work Phone: [facility] 11-11-2024 09:29-0400 Body weight 67.41 kg Tsering Starr DIRECTOR HEALTH Work Phone: [facility] 11-11-2024 09:29-0400 Diastolic blood pressure 82 mm[Hg] Tsering Starr DIRECTOR HEALTH Work Phone: [facility] 11-11-2024 09:29-0400 Heart rate 64 /min Tsering Starr DIRECTOR HEALTH Work Phone: [facility] 11-11-2024 09:29-0400 Respiratory rate 16 /min Tsering Dg DIRECTOR HEALTH Work Phone: [facility] 11-11-2024 09:29-0400 SaO2% (BldA) [Mass fraction] 95 % Tsering Starr DIRECTOR HEALTH Work Phone: [facility] 11-11-2024 09:29-0400 Systolic blood pressure 142 mm[Hg] Tsering Starr DIRECTOR HEALTH Work Phone: [facility] 07-30-2024 09:10-0500 Body height 180.3 cm Nicky Hemmer PA Work Phone: [facility] 07-30-2024 09:10-0500 Body mass index (BMI) [Ratio] 19.67 kg/m2 Nicky Hemmer PA Work Phone: [facility] 07-30-2024 09:10-0500 Body weight 63.96 kg Nicky Hemmer PA Work Phone: [facility] 07-30-2024 09:10-0500 Diastolic blood pressure 76 mm[Hg] Nicky Hemmer PA Work Phone: [facility] 07-30-2024 09:10-0500 Heart rate 64 /min Nicky Hemmer PA Work Phone: [facility] 07-30-2024 09:10-0500 Respiratory rate 16 /min Nicky Hemmer PA Work Phone: [facility] 07-30-2024 09:10-0500 SaO2% (BldA) [Mass fraction] 99 % Nicky Hemmer PA Work Phone: [facility] 07-30-2024 09:10-0500 Systolic blood pressure 118 mm[Hg] Nicky Hemmer PA Work Phone: [facility] 05-04-2024 15:10-0400 Body height 180.3 cm Kvng Linton MD Work Phone: [facility] 05-04-2024 15:10-0400 Body mass index (BMI) [Ratio] 19.25 kg/m2 Kvng Linton MD Work Phone: [facility] 05-04-2024 15:10-0400 Body weight 62.6 kg Kvng Linton MD Work Phone: [facility] 05-04-2024 15:10-0400 Diastolic blood pressure 74 mm[Hg] Kvng Linton MD Work Phone: [facility] 05-04-2024 15:10-0400 Heart rate 77 /min Kvng Linton MD Work Phone: [facility] 05-04-2024 15:10-0400 SaO2% (BldA) [Mass fraction] 100 % Kvng Linton MD Work Phone: [facility] 05-04-2024 15:10-0400 Systolic blood pressure 128 mm[Hg] Kvng Linton MD Work Phone: [facility] 09-04-2023 11:26-0500 Body height 180.3 cm Kvng Linton MD Work Phone: [facility] 09-04-2023 11:26-0500 Body mass index (BMI) [Ratio] 19.8 kg/m2 Kvng Linton MD Work Phone: [facility] 09-04-2023 11:26-0500 Body weight 64.41 kg Kvng Linton MD Work Phone: [facility] 09-04-2023 11:26-0500 Diastolic blood pressure 62 mm[Hg] Kvng Linton MD Work Phone: [facility] 09-04-2023 11:26-0500 Heart rate 61 /min Kvng Linton MD Work Phone: [facility] 09-04-2023 11:26-0500 SaO2% (BldA) [Mass fraction] 99 % Kvng Linton MD Work Phone: [facility] 09-04-2023 11:26-0500 Systolic blood pressure 106 mm[Hg] Kvng Linton MD Work Phone: [facility] Encounters Encounter Date Encounter Type Care Provider Facility Start: 03-16-2025 End: 03-16-2025 ambulatory KATLIN ROMERO Not Available Start: 03-16-2025 End: 03-16-2025 Postop follow up visit related to original px Katlin Romero MD Work Phone: [facility] Comment on above: Encounter for remova l of sutures Start: 03-16-2025 End: 03-16-2025 Bamboo flowsheet Katlin Romero MD Work Phone: [facility] Start: 03-16-2025 End: 03-16-2025 Bamboo flowsshelly Romero MD Work Phone: [facility] Start: 03-02-2025 End: 03-02-2025 Patient encounter procedure Katlin Romero MD Work Phone: [facility] Comment on above: Epidermal inclusion cyst (Primary Dx); Pain Start: 03-02-2025 End: 03-02-2025 ambulatory KATLIN ROMERO Not Available Start: 03-02-2025 End: 03-02-2025 Bamboo flowsheet Katlin Romero MD Work Phone: [facility] Start: 03-02-2025 End: 03-02-2025 Bamboo flowsheet Katlin Romero MD Work Phone: [facility] Start: 02-23-2025 End: 02-23-2025 Bamboo flowsheet Nicky TURNER Work Phone: [facility] Start: 02-23-2025 End: 02-23-2025 Bamboo flowsheet Nicky TURNER Work Phone: [facility] [place] [facility] Start: 02-23-2025 End: 02-23-2025 Patient encounter procedure Nicky TURNER Work Phone: [facility] Comment on above: Medicare annual [facility] visit, subsequent (Primary Dx); ACP (advance [...] 11-11-2024 End: 11-11-2024 Bamboo flowsheet Tsering Starr DIRECTOR HEALTH Work Phone: [facility] Start: 11-11-2024 End: 11-11-2024 Bamboo flowsheet Tsering Starr DIRECTOR HEALTH Work Phone: [facility] Start: 11-11-2024 End: 11-11-2024 Office outpatient visit 25 minutes Tsering Starr DIRECTOR HEALTH Work Phone: [facility] Comment on [...] Evaluation and management of inpatient BRITTANY DEGROOT [facility] Start: 03-13-2024 End: 03-14-2024 Evaluation and management of inpatient [facility] Start: 03-13-2024 End: 03-13-2024 Evaluation and management of inpatient [facility] Start: 03-05-2024 End: 03-05-2024 ambulatory KVNG LINTON [facility] Start: 02-25-2024 End: 02-25-2024 ambulatory SEBASTIAN LAWSON [facility] Start: 02-12-2024 End: 02-12-2024 ambulatory [facility] Start: 01-16-2024 End: 01-16-2024 ambulatory [facility] Start: 12-20-2023 End: 12-20-2023 Evaluation and management of inpatient AYDEN LAN [facility] Start: 12-19-2023 End: 12-20-2023 Evaluation and management of inpatient [facility] Start: 11-28-2023 End: 11-28-2023 ambulatory JESUS Newsome BINGHAM [facility] Start: 10-26-2023 End: 10-27-2023 [facility] Start: 09-05-2023 ambulatory Facility:[facility] Start: [...] Start: 10-19-2022 Encounter for preprocedural cardiovascular examination [facility] Start: 10-19-2022 Encounter for preprocedural laboratory examination [facility] Start: 10-16-2022 End: 10-17-[address] KVNG LINTON Facility:[facility] Start: 10-16-2022 End: 10-17-2022 Encounter for preprocedural cardiovascular examination DR KVNG LINTON Facility:[facility] Start: 10-09-2022 End: 10-10-[address] KVNG LINTON Facility:[facility] Start: 09-25-2022 End: 09-26-[address] KVNG LINTON Facility:[facility] Start: 09-18-2022 End: 09-19-[address] KVNG LITNON Facility:[facility] Start: 07-27-2022 End: 07-28-[address] KVNG LINTON Facility:[facility] Start: 06-19-2022 End: 06-20-[address] KVNG ILNTON Facility:[facility] Start: 06-01-2022 End: 06-02-2022 ambulatory ANUP [...] Dermatology [address] [place] [id number] Katlin Romero MD [address] [place] [address] [facility] Start: 03-02-2025 End: 03-02-2025 Patient encounter procedure [facility] Comment on above: Arrived Start: 02-23-2025 End: 02-23-2025 Patient encounter procedure 02/23/2025 10:00 AM EDT Office Visit [facility] [address] [place] [address] Nicky Riddle PA [address] [place] [address] Arrived [facility] Comment on above: Arrived Start: 02-05-2025 Medicare Annual Wellness (AWV) Medicare Annual Wellness (AWV) [facility] Start: 01-06-2025 End: 01-06-2025 Patient encounter procedure 01/06/2025 11:00 AM EDT Office Visit [facility] [address] [place] [address] Tsering Starr NP [address] [place] [address] [facility] Start: 12-30-2024 End: 12-30-2024 Patient encounter procedure 12/30/2024 12:50 PM EDT Office Visit [facility] [address] [place] [address] Gabriela Gilman, PA [address] [place] [address] Arrived [facility] Comment on above: Arrived Start: 11-23-2024 End: 11-23-2024 Patient encounter procedure 11/23/2024 4:00 PM EDT Office Visit [facility] [address] [place] [address] Kvng Linton MD [address] [place] [address] [facility] Start: 11-11-2024 End: 11-11-2024 Patient encounter procedure 11/11/2024 9:30 AM EDT Office Visit [facility] [address] [place] [address] Tsering Starr NP [address] [place] [address] Arrived [facility] Comment on above: [...] of sepsis Expected: 07/30/2024 (Approximate), Expires: 07/30/2025 [facility] Work Phone: Comment on above: Expected: 07/30/2024 (Approximate), Expi res: 07/30/2025 Start: 07-30-2024 End: 07-30-2025 Comprehensive metabolic 2000 panel - Serum or Plasma Comprehensive metabolic panel Lab Routine Essential (primary) hypertension (CMS/HCC) Expected: 07/30/2024 (Approximate), Expires: 07/30/2025 [facility] Comment on above: Expected: 07/30/2024 (Approximate), Expi res: 07/30/2025 Start: 07-30-2024 End: 07-30-2025 Lipid 1996 panel - Serum or Plasma Lipid panel Lab Routine Essential (primary) hypertension (CMS/HCC) Expected: 07/30/2024 (Approximate), Expires: 07/30/2025 [facility] Comment on above: Expected: 07/30/2024 (Approximate), Expi res: 07/30/2025 Start: 07-30-2024 End: 07-30-2024 Patient encounter procedure 07/30/2024 9:00 AM EST Office Visit [facility] [address] [place] [address] Nicky Riddle PA [address] [place] [address] Arrived [facility] Comment on above: Arrived Start: 05-04-2024 End: 05-04-2024 Patient encounter procedure 05/04/2024 3:15 PM EDT Office Visit [facility] [address] [place] [address] Kvng Linton MD [address] [place] [address] Arrived [facility] Comment on above: Arrived Start: 03-22-2024 Influenza vaccination Influenza Vaccine (#1) [facility] Start: 09-04-2023 End: 09-04-2025 Echocardiogram 2D complete Echocardiogram 2D complete Echocardiography Routine TIA (transient ischemic attack) Expected: 09/04/2023 (Approximate), Expires: 09/04/2025 [facility] Work Phone: Comment on above: Expected: 09/04/2023 (Approximate), Expi res: 09/04/2025 Start: 09-04-2023 End: 09-04-2023 Patient encounter procedure 09/04/2023 11:30 AM EST Office Visit [facility] [address] [facility] [address] [place] [address] Kvng Linton MD [address] [facility] [address] [place] [address] Arrived [facility] Comment on above: Arrived Start: 05-07-2023 Medicare Annual Wellness (AWV) Medicare Annual Wellness (AWV) [facility] Start: 03-22-2023 Influenza vaccination Influenza Vaccine (#1) [facility] Start: 1945 Screening for malignant neoplasm of colon [facility] Dermatopathology exam Dermatopat hology exam Pathology and Cytology Timed Epidermal inclusion cyst Release Upon Ordering for 1 Occurrences starting 03/02/2025 [facility] Work Phone: Comment on above: Release Upon Ordering for 1 Occurrences starting 03/02/2025 Immunizations Immunization Date Immunization Notes Care Provider Fa [facility] 07-05-2022 Influenza, High-dose Seasonal, Quadrivalent, Preservative Free Kvng Linton MD Work Phone: [facility] 07-05-2022 influenza virus vacc ine, unspecified formulation Kvng Linton MD Work Phone: [facility] 05-03-2021 influenza, high dose seasonal, preservative-free Kvng Linton MD Work Phone: [facility] 04-12-2020 Influenza, High-dose Seasonal, Quadrivalent, Preservative Free Kvng Linton MD Work Phone: [facility] 04-12-2020 pneumococcal conjuga te vaccine, 13 valjose Linton MD Work Phone: [facility] 04-05-2020 influenza, high dose seasonal, preservative-free Kvng Linton MD Work Phone: [facility] 04-05-2020 pneumococcal polysaccharide vaccine, 23 valjose Linton MD Work Phone: [facility] 07-02-2019 influenza, high dose seasonal, preservative-free Kvng Linton MD Work Phone: [facility] 06-05-2018 Influenza, injectabl e, Madin [place] Canine Kidney, preservative free, quadrivalent Kvng Linton MD Work Phone: [facility] 04-23-2018 seasonal influenza, intradermal, preservative free Kvng Linton MD Work Phone: [facility] 04-23-2016 influenza, injectabl e, quadrivalent, contains preservative Kvng Linton MD Work Phone: [facility] 11-16-2013 pneumococcal polysaccharide vaccine, 23 valent Kvng Linton MD Work Phone: [facility] 01-21-2012 tetanus toxoid, redu nithin diphtheria toxoid, and acellular pertussis vaccine, adsorbed Kvng Linton MD Work Phone: [facility] Payers Date Payer Category Payer Medicare [id number] 2023 Medicare (Managed Care) RASHID LU [id number] 2023 Medicare [id number] 2013 Medicare [id number] 1959 Medicare [id number] 1959 Unknown [id number] 1947 Unknown [id number] 2.16.840.1.493509.3.579.2. 593 1947 Unknown [id number] 2.16.840.1.250965.3.579.2. 593 1947 Unknown [id number] 2.16.840.1.444407.3.579.2. 593 1947 Unknown [id number] 2.16.840.1.179764.3.579.2. 593 1947 Unknown [id number] 2.16.840.1.224961.3.579.2. 593 1947 Unknown [id number] 2.16840.1.285689.3.579.2. 593 1947 Unknown [id number] 2.16.840.1.826485.3.579.2. 593 1947 Unknown [id number] 2.16.840.1.400497.3.579.2. 593 1947 Unknown [id number] 2.16.840.1.981564.3.579.2. 593 1947 Unknown [id number] 2.16.840.1.883552.3.579.2. 593 1947 Unknown [id number] 2.16.840.1.289284.3.579.2. 593 1947 Unknown [id number] 2.16.840.1.865547.3.579.2. 593 1947 Unknown [id number] 2.16.840.1.489537.3.579.2. 593 1947 Unknown [id number] 2.16.840.1.559820.3.579.2. 593 1947 Unknown [id number] 2.16.840.1.765204.3.579.2. 593 1947 Unknown [id number] 2.16.840.1.492082.3.579.2. 593 1947 Unknown [id number] 2.16.840.1.361058.3.579.2. 593 1947 Unknown [id number] 2.16.840.1.059871.3.579.2. 593 1947 Unknown [id number] 2.16.840.1.709403.3.579.2. 593 1947 Unknown [id number] 2.16.840.1.026442.3.579.2. 593 1947 Unknown [id number] 2.16840.1.960599.3.579.2. 593 1945 Unknown [id number] 2.16840.1.387639.3.579.2. 593 1945 Unknown [id number] 2.16840.1.866894.3.579.2. 593 1947 Unknown [id number] 2.16.840.1.953979.3.579.2. 593 1947 Unknown [id number] 2.16840.1.769894.3.579.2. 593 1945 Unknown [id number] 2.16.840.1.328949.3.579.2. 173 1945 Unknown [id number] 2.16.840.1.693186.3.579.2. 1286 1947 Unknown [id number] 2.16.840.1.522332.3.579.2. 1286 1947 Unknown [id number] 2.16.840.1.953508.3.579.2. 1286 8 Unknown [id number] 2.16.840.1.543742.3.579.2. 1285 1947 Unknown [id number] 2.16.840.1.611007.3.579.2. 1285 1947 Unknown [id number] 2.16.840.1.420091.3.579.2. 1285 1947 Unknown [id number] 2.16.840.1.296122.3.579.2. 1285 1947 Unknown [id number] 2.16.840.1.321629.3.579.2. 1285 1947 Unknown [id number] 2.16.840.1.692303.3.579.2. 1285 1947 Unknown [id number] 2.16840.1.045384.3.579.2. 1285 1947 Unknown [id number] 2.16840.1.024150.3.579.2. 1285 1947 Unknown [id number] 2.16840.1.365995.3.579.2. 1285 1947 Unknown [id number] 2.16840.1.982556.3.579.2. 1285 1947 Unknown [id number] 2.840.1.433029.3.579.2. 1258 1947 Unknown [id number] 2.16.840.1.676359.3.579.2. 1258 1947 Unknown [id number] 2.16.840.1.155056.3.579.2. 1258 1947 Unknown [id number] 2.16.840.1.231056.3.579.2. 1258 1947 Unknown [id number] 2.16840.1.022839.3.579.2. 1258 1947 Unknown [id number] 2.16840.1.050788.3.579.2. 1259 1947 Unknown [id number] 2.16.840.1.117774.3.579.2. 1259 Social History Date Type Detail Facility Start: 03-12-2023 End: 11-11-2024 Tobacco smoking status KYIS Ex-smoker [facility] Start: 07-30-1965 End: 07-22-1992 History of tobacco use Current smoker [facility] Start: 07-30-1965 End: 07-22-1992 History of tobacco use Cigarette Smoker [facility] Start: 03-12-2023 End: 11-11-2024 Tobacco use and exposure Smokeless tobacco non-user [facility] Start: 08-30-2023 End: 09-04-2023 Alcohol intake Not Asked [facility] Start: 03-12-2023 End: 03-05-2024 History of Social function [facility] Work Phone: Start: 03-12-2023 End: 03-05-2024 Tobacco use panel [facility] Work Phone: Start: 03-14-2023 Alcohol Comment caffeine intak e: more than 4 cups per day. [facility] Start: 1945 Sex Assigned At Not on file [facility] Start: 03-31-2024 End: 03-16-2025 Alcoholic beverage [...] got money to buy more. Never true [facility] In the past 12 month s, was there a time when you were not able to pay the mortgage or rent on time? No [facility] Functional Status Date Assessment Result Facility 02-23-2025 Patient [facility] ionnaire 2 item (PHQ-2) [Reported] [facility] 11-11-2024 Patient Health [facility] ionnaire 2 item (PHQ-2) [Reported] [facility] Clinical Notes 02-26-2022 to [...] Visit: As needed documented in this encounter [facility] 03-02-2025 History of Present illness Narrative [...] days for s/r documented in this encounter [facility] 02-23-2025 History of Present illness Narrative [...] have a medical power of real estate associate attorney?: No Current Outpatient Medications on File [...] will and durable power of real estate associate attorney for healthcare. We discussed telling yoder [...] Nicky POTTS, KRISTOFERC documented in this encounter [facility] 12-30-2024 History of Present illness Narrative [...] Visit: 03/02/2025, excision documented in this encounter [facility] 11-11-2024 History of Present illness Narrative [...] follow-ups on file. documented in this encounter [facility] 08-31-2024 Telephone encounter Note Acknowledged. [facility] 08-31-2024 Miscellaneous Notes Acknowledged. Patient was contacted by JOCE Castro for a sleep study and at this time she wants to cancel the study, for she doesn't feel it is necessary. documented in this encounter [facility] 08-31-2024 Telephone encounter Note Acknowledged. [facility] 08-31-2024 Miscellaneous Notes Acknowledged. Hi, this is Be patient director of managed care with Joce. Matthew, I was just calling [...] call me at my cell phone number. [phone], thank you. documented in this encounter [facility] 08-25-2024 Telephone encounter Note Patient was contacted by JOCE Castro for a sleep study and at this time she wants to cancel the study, for she doesn't feel it is necessary. [facility] 08-25-2024 Telephone encounter Note Hi, this is Be patient director of managed care with [facility]. Matthew, I was just calling [...] call me at my cell phone number. [phone] 2, thank you. [facility] 07-30-2024 History of Present illness Narrative [...] 08/27/2024) for Recheck. documented in this encounter [facility] 05-08-2024 Telephone encounter Note Sent. [facility] 05-08-2024 Miscellaneous Notes Sent. documented in this encounter [facility] 05-04-2024 History of Present illness Narrative [...] for Routine F/U. documented in this encounter [facility] 04-06-2024 Telephone encounter Note Patient came [...] OTC 1 hour prior to each pill. [facility] 04-06-2024 Miscellaneous Notes Patient came in [...] to each pill. documented in this encounter [facility] 09-04-2023 History of Present illness Narrative Subjective Patient ID: Berenice Silva is a 77 y.o. female who presents for Follow-up ([facility] stay admitted 08/24/23 dx: TIA discharged home 08/25/23 advised to take ASA 325mg). Flowsheet Row Telephone from 08/30/2023 in [facility] with Kvng Linton MD Discharge Information ED or Hospital Discharge? Hospital Patient has been contacted within two business days of discharge No Have two attempts been made to contact the patient within two business days of being discharged? No Discharge Date 08/25/23 Discharge Hospital [facility] Discharged To: Home Setting Engagement [...] THE MORNING 90 tablet 0 [DISCONTINUED] HYDROcodone-acetaminophen ([place]) 5-325 MG tablet Take 1 tablet by [...] for Test/Lab Review. documented in this encounter [facility] 10-22-2022 Note PROCEDURE: XR FOOT R [...] authenticated by: HALEIGH FINE Date: 2022-10-22 16:24 [facility] 10-09-2022 Note PROCEDURE: XR FOOT [...] by: AYDEN SERRA Date: 2022-10-09 14:38 [facility] 09-18-2022 Note PROCEDURE: XR FOOT R [...] authenticated by: AYDEN SERRA Date: 2022-09-18 17:34 [facility] 05-10-2022 Note PROCEDURE: XR FOOT R T 2V COMPARISON: 02/23/2022 HISTORY: Pain FINDINGS: BONES:Stable medial effusion with plates and screws. Stable subtalar fusion. Changing configuration of the lateral sesamoid of the first metatarsal SOFT TISSUES:Negative. No visible soft tissue swelling. EFFUSION:None visible. OTHER: Negative. IMPRESSION: Intraprocedural fluoroscopic images Electronically authenticated by: AYDEN SERRA Date: 2022-05-10 17:33 [facility] 05-10-2022 Note PROCEDURE: XR FOOT [...] by: AYDEN SERRA Date: 2022-05-10 17:32 [facility] 02-26-2022 Note PROCEDURE: XR FOOT R T [...] by: AYDEN SERRA Date: 2022-02-26 07:57 [facility] Evaluation note Diagnosis TIA (transient ischemic attack)- [...] To Contact Urology Diagnoses Urinary frequency Procedures [facility] OFFICE/OUTPATIENT [facility] 60 MINUTES Kvng Linton MD [address] [address] Vee Hatfield MD [address] [place] [id number] Referral ID Status Reason Start Date Expiration Date Visits Requested Visits Authorized [id number] Pending Review Specialty Services Required 09/04/2023 03/02/2024 1 1 * Consultation (Routine) - Pending Review Specialty Diagnoses / Procedures Referred By Contac t Referred To Contact Neurology Diagnoses TIA (transient ischemic attack) Procedures [facility] OFFICE[facility]OUTPATIENT NEW HIGH MDM 60 MINUTES Kvng Linton MD 112 [facility] [address] [place] [address] Damion Longo MD [address] [place] [address] Referral ID Status Reason Start Date Expiration Date Visits Requested Visits Authorized [id number] Pending Review Specialty Services Required 09/04/2023 03/02/2024 1 1 * Imaging (Routine) - Pending Review Specialty Diagnoses / Procedures Referred By Contac t Referred To Contact Cardiology Diagnoses TIA (transient ischemic attack) Procedures Echocardiogram 2D complete Kvng Linton MD [address] [address] Referral ID Status Reason Start Date Expiration Date Visits Requested Visits Authorized [id number] Pending Review Perform Procedure 09/04/2023 03/02/2024 1 [...] DATE CREATED AUTHOR AUTHOR'S ORGANIZ ATION 09/07/2023 [facility] DATE CREATED AUTHOR AUTHOR'S ORGANIZ ATION 11/01/2023 [facility] DATE CREATED AUTHOR AUTHOR'S ORGANIZ ATION 01/22/2024 [facility] DATE CREATED AUTHOR AUTHOR'S ORGANIZ ATION 02/27/2024 [facility] DATE CREATED AUTHOR AUTHOR'S ORGANIZ ATION 03/15/2024 [facility] DATE CREATED AUTHOR AUTHOR'S ORGANIZ ATION 08/07/2024 [facility] DATE CREATED AUTHOR AUTHOR'S ORGANIZ ATION 03/18/2025 [facility] Care Teams (unrecognized sec tion and content) Grade Checker Relationship Specialty Start Date End Date Kvng Linton MD [address] [place] [address] PCP - General Internal Medicine 11/27/22 Kvng Linton MD [address] [place] [address] PCP - Rashid GALVEZ 07/22/23 Grade Checker Relationship Specialty Start Date End Date Kvng Linton MD [address] [place] [address] PCP - General Internal Medicine 11/27/22 Kvng Linton MD [address] [place] [address] PCP - Rashid GALVEZ 07/22/23 Grade Checker Relationship Specialty Start Date End Date Kvng Linton MD [address] [place] [address] PCP - General Internal Medicine 11/27/22 Kvng Linton MD [address] [place] [address] PCP - Rashid GALVEZ 07/22/23Saturday, MELISSA Boles [address] [place] [address] Licensed Practical Nurse Family Medicine 02/26/24 Grade Checker Relationship Specialty Start Date End Date Kvng Linton MD [address] [place] [address] PCP - General Internal Medicine 11/27/22 Kvng Linton MD [address] [place] [address] PCP - Rashid GALVEZ 07/22/23Saturday, Elvi, RELIGIOUS ASSISTANT [address] [place] [address] Licensed Practical Nurse Family Medicine 02/26/24 Grade Checker Relationship Specialty Start Date End Date Kvng Linton MD [address] [place] [address] PCP - General Internal Medicine 11/27/22 Kvng Linton MD [address] [place] [address] PCP - Rashid GALVEZ 07/22/23Saturday, Elvi, RELIGIOUS ASSISTANT [address] [place] [address] Licensed Practical Nurse Family Medicine 02/26/24 Grade Checker Relationship Specialty Start Date End Date Kvng Linton MD [address] [place] [address] PCP - General Internal Medicine 11/27/22 Kvng Linton MD [address] [place] [address] PCP Gay Mike MA 07/22/23Saturday, Elvi, RELIGIOUS ASSISTANT [address] [place] [address] Licensed Practical Nurse Family Medicine 02/26/24 Grade Checker Relationship Specialty Start Date End Date Knvg Linton MD [address] [place] [address] PCP - General Internal Medicine 11/27/22SatRowdyElvi byrd LPN [address] [place] [address] Licensed Practical Nurse Family Medicine 02/26/24 08/28/24 Heydi Parker, RN Licensed Practical Nurse Family Medicine 08/28/24 Grade Checker Relationship Specialty Start Date End Date Kvng Linton MD [address] [place] [address] PCP - General Internal Medicine 11/27/22 Heydi Parker, RN Licensed Practical Nurse Family Medicine 08/28/24 Grade Checker Relationship Specialty Start Date End Date Kvng Linton MD [address] [place] [address] PCP - General Internal Medicine 11/27/22 Kvng Linton MD [address] [place] [address] PCP - Rashid GALVEZ 07/22/23 Reina Palma LPN 10/06/24 Grade Checker Relationship Specialty Start Date End Date Kvng Linton MD [address] [place] [address] PCP - General Internal Medicine 11/27/22 Kvng Linton MD [address] [place] [address] PCP - Rashid GALVEZ 07/22/23 Reina Palma LPN 10/06/24 Grade Checker Relationship Specialty Start Date End Date Kvng Linton MD [address] [place] [address] PCP - General Internal Medicine 11/27/22 Kvng Linton MD [address] [place] [address] PCP - Rashid MA 07/22/23 Reina Palma LPN 10/06/24 Grade Checker Relationship Specialty Start Date End Date Kvng Linton MD [address] [place] [address] PCP - General Internal Medicine 11/27/22 Kvng Linton MD [address] [place] [address] PCP - Rashid GALVEZ 07/22/23 Reina Palma LPN 10/06/24 Grade Checker Relationship Specialty Start Date End Date Kvng Linton MD [address] [place] [address] PCP - General Internal Medicine 11/27/22 Kvng Linton MD [address] [place] [address] PCP - Rashid MA 07/22/23 Reina Palma LPN [address] [place] [address] 10/06/24 Grade Checker Relationship Specialty Start Date End Date Kvng Linton MD [address] [place] [address] PCP - General Internal Medicine 11/27/22 Kvng Linton MD [address] [place] [address] PCP - Rashid GALVEZ 07/22/23 Reina Palma LPN [address] [place] [address] 10/06/24 Grade Checker Relationship Specialty Start Date End Date Kvng Linton MD [address] [place] [address] PCP - General Internal Medicine 11/27/22 Kvng Linton MD [address] [place] [address] PCP - Rashid GALVEZ 07/22/23 Reina Palma LPN [address] [place] [address] 10/06/24 Grade Checker Relationship Specialty Start Date End Date Kvng Linton MD [address] [place] [address] PCP - General Internal Medicine 11/27/22 Kvng Linton MD [address] [place] [address] PCP - Rashid GALVEZ 07/22/23 Reina Palma LPN [address] [place] [address] 10/06/24 Grade Checker Relationship Specialty Start Date End Date Kvng Linton MD [address] [place] [address] PCP - General Internal Medicine 11/27/22 Kvng Linton MD [address] [facility] [address] [place] [address] PCP - Rashid GALVEZ 07/22/23 Reina Palma LPN [address] [facility] [address] [place] [address] 10/06/24 Grade Checker Relationship Specialty Start Date End Date Kvng Linton MD [address] [facility] [address] [place] [address] PCP - General Internal Medicine 11/27/22 Kvng Linton MD [address] [facility] [address] [place] [address] PCP - Rashid GALVEZ 07/22/23 Reina Palma LPN [address] [facility] [address] [place] [address] 10/06/24 Reason for Visit (unrecogniz ed section [...] BE BASED ON THE PRIMARY CLINICAL RECORDS. [facility] [place] [facility] [facility]. provides no warranty or guarantee of the accuracy or completeness of information in this document.
== END 2025-04-14 09:59 | disposition home or self-care (01) ==
LOC: WC 09:58
PROVIDERS: PCP Internal Medicine; Visit Provider Podiatrist Foot & Ankle Surgery
DX: L97.415 Non-pressure chronic ulcer of right heel and midfoot with muscle involvement without evidence of necrosis (principal)
CPT/HCPCS: 11042

== ENCOUNTER 2025-04-28 10:55 | Outpatient (OUT) | payer MEDICARE, SELFPAY ==
--- OUTSIDE RECORDS SUMMARY | 2025-04-28 11:09 | XMS_ITS | CCD ---
Author Organization [facility] Care Team Providers Care Welcome Wagon Host/Hostess Name Role Phone ANUP JOHN Attending Unavailable [...] Anderson Consulting Unavailable CHICHO, KELBY Consulting Unavailable AYRELIS ., CAROLYN FROST Consulting Unavailable SHARP, SVEN [...] Unavailable Kvng Linton MD Primary Care Provider [phone] Kvng Linton MD Unavailable [phone] IRWIN HODGE Attending Unavailable IRWIN HODGE Admitting [...] KVNG LINTON B Primary Care Unavailable Saturday AUTOMOBILE LEASING SUPERVISOR, Elvi Unavailable Saturday AUTOMOBILE LEASING SUPERVISOR, Elvi Unavailable Heydi Parker RN Unavailable Palma AUTOMOBILE LEASING SUPERVISOR, Reina Unavailable Unavailable [place] AUTOMOBILE LEASING SUPERVISOR, Reina Unavailable TSERING STARR Attending Unavailable GABRIELA GILMAN Attending Unavailable KVNG LINTON Attending Unavailable NICKY RIDDLE Attending Unavailable KATLIN ROMERO Attending Unavailable KATLIN ROMERO Attending Unavailable NICKY RIDDLE Attending Unavailable Allergies Allergy Classification Reported Allergen(s) Allergy Type Date of Onset Reaction(s) Facility (1 source) Amoxicillin / Clavulanate Drug Allergy The [facility] Repository (1 source) Cephalexin Drug Allergy 9 [facility] Repository (1 source) Sulfonamides (Antibiotic) Drug allergy (disorder) The [facility] Repository (20 sources) Sulfonamides (Antibiotic) Drug Allergy 3 [facility] (20 sources) Amoxicillin-Pot Clavulanate; Translations: [AMOXICILLIN-POT CLAVULANATE] Drug Allergy 1 Nausea Only [facility] (3 sources) Sulfonamides (Antibiotic); Translations: [SULFA (SULFONAMIDE ANTIBIOTICS)] Propensity to adverse reactions to drug (disorder) 2 [facility] Repository Medications Current Medications Medication Drug Class(es) Dates Sig (Normalized) Sig (Original) acetaminophen 325 mg / HYDROcodone bitartrate 5 mg oral tablet (3 sources) Opioid Agonist Start: 10-22-2022 End: 09-04-2023 take 1 tablet by mouth four times daily as needed HYDROcodone-aceta minophen ([place]) 5-325 MG tablet Take 1 tablet by [...] Start: 06-17-2023 take 2 tablets by mo [facility] in the morning rOPINIRole (Requip) [...] 02/23/2025 03/05/2025 Active [facility] needed [...] Other usp (current) drug therapy; Translations: [OTH SUPERVISOR CLOTH WINDING CURRENT DRUG THERAPY] Onset: 10-31-2022 Episodic Other [...] Estimated blood loss: <1.0 ml [facility] e Complexity: Intermediate Final length (cm): 2.3 [...] uncontrollable bleeding, or complications. Dressing type: bandage [facility] XR FOOT RT MIN 3Von 01-28-[address] [place] [address] XRay Report Signed Patient: BERENICE SILVA MR#: [id number] : 1945 Acct:[id number] Age/Sex: 79 / F ADM Date: 01/27/25 Loc: RAD Attending Dr: Anup John D.P.M. Ordering Physician: Anup John D.P.M. Date of Service: 01/27/25 Procedure(s): XR foot RT min 3V Accession Number(s): [id number] cc: KVNG LINTON ; Anup John D.P.M. The [place] [id number] Patient Name: BERENICE SILVA MRN: [facility]:[id number] date: 1945 Sex: F Assigned Patient Location: [facility] Current Patient Location: Accession/Order Number: [id number] Exam Date: 01/27/2025 15:38 Report Date: 01/27/2025 [...] Fish M.D. 01/27/2025 3:41 PM Dictation Location: [place] [address] Electronically authenticated by: [id number] Y Date: 01/27/2025 15:41 Dictated By: Lew Fish D.O. Signed By: 01/27/25 1543 DD/ 1541 TD/TT: Certified Adaptive Physical Educator: [facility] Radiology, Radiologist, MD - 01/27/2025 [place] [address] XRay Report Signed Patient: BERENICE SILVA MR#: [id number] : 1945 Acct:[id number] Age/Sex: 79 / F ADM Date: 01/27/25 Loc: [facility] Attending Dr: Anup John D.P.M. Ordering Physician: Anup John D.P.M. Date of Service: 01/27/25 Procedure(s): XR foot RT min 3V Accession Number(s): [id number] cc: KVNG LINTON ; Anup John D.P.M. The [place] [address] Patient Name: BERENICE SILVA MRN: [facility]:[id number] date: 1945 Sex: F Assigned Patient Location: [facility] Current Patient Location: Accession/Order Number: [id number] Exam Date: 01/27/2025 15:38 Report Date: 01/27/2025 [...] Fish M.D. 01/27/2025 3:41 PM Dictation Location: [place] [address] Electronically authenticated by: [id number] Y Date: 01/27/2025 15:41 Dictated By: Lew Fish D.O. Signed By: 01/27/25 1543 DD/ 1541 TD/TT: Certified Adaptive Physical Educator: [facility] [place] Radiology Study observation (narrative) [facility] XR FOOT RT MIN 3VOrdered By: Radiologist Radiology on 01-27-2025 [facility] Datoramacar e Work Phone: CBC (INCLUDES DIFF/PLT)on Basophils (Bld) [#/Vol] 0.053 10*3/uL Normal 0-200 [facility] Comment on above: Performed By: #### 6 399, 8300, 35207 #### [facility] [address], [address] [place] [phone] Attendant [employer] Store: Keagan Holly MD Basophils/100 WBC (Bld) 1.0 % Normal [facility] Comment on above: Performed By: #### 6 399, 7600, 40698 #### [facility] of [place] [address] Attendant Self Service Store: Keagan Holly MD Eosinophils (Bld) [#/Vol] 0.143 10*3/uL Normal 15-500 [facility] Comment on above: Performed By: #### 6 399, 7600, 86288 #### [facility] of [place] [address] Attendant [employer] Store: Keagan Holly MD Eosinophils/100 WBC (Bld) 2.7 % Normal [facility] Comment on above: Performed By: #### 6 399, 7600, 46274 #### [facility] of [place] [address] Attendant [employer] Service Store: Keagan Holly MD Erythrocyte distribution width (RBC) [Ratio] 11.9 % Normal 11.0-15.0 [facility] Comment on above: Performed By: #### 6 399, 7600, 85065 #### [facility] of [place] [address] Attendant [employer] Store: Keagan Holly MD Hematocrit (Bld) [Volume fraction] 38.1 % Normal 35.0-45.0 [facility] Comment on above: Performed By: #### 6 399, 7600, 70056 #### [facility] of [place] [address] Attendant Self Service Store: Keagan Holly MD Hemoglobin (Bld) [Mass/Vol] 13.1 g/dL Normal 11.7-15.5 [facility] Comment on above: Performed By: #### 6 399, 7600, 73663 #### [facility] of [place] [address] Attendant [employer] Store: Keagan Holly MD Lymphocytes (Bld) [#/Vol] 1.988 10*3/uL Normal 850-3900 [facility] Comment on above: Performed By: #### 6 399, 7600, 69491 #### [facility] [place] [address] Attendant [employer] Store: Keagan Holly MD Lymphocytes/100 WBC (Bld) 37.5 % Normal [facility] Comment on above: Performed By: #### 6 399, 7600, 92369 #### [facility] [place] [address] Attendant [employer] Store: Keagan Holly MD MCH (RBC) [Entitic mass] 31.3 pg Normal 27.0-33.0 [facility] Comment on above: Performed By: #### 6 399, 7600, 15621 #### [facility] [place] [address] Attendant [employer] Store: Keagan Holly MD MCHC (RBC) [Mass/Vol] 34.4 [...] condition. Performed By: #### 6 399, 7600, 26820 #### [facility] of [place] [address] Attendant [employer] Store: Keagan Holly MD MCV (RBC) [Entitic vol] 91.1 fL Normal 80.0-100.0 [facility] Comment on above: Performed By: #### 6 399, 7600, 73352 #### [facility] [place] [address] Attendant [employer] Service Store: Keagan Holly MD Monocytes (Bld) [#/Vol] 0.392 10*3/uL Normal 200-950 [facility] Comment on above: Performed By: #### 6 399, 7600, 08267 #### [facility] [place] [address] Attendant Self Service Store: Keagan Holly MD Monocytes/100 WBC (Bld) 7.4 % Normal [facility] Comment on above: Performed By: #### 6 399, 7600, 55571 #### [facility] of [place] [address] Attendant Self Service Store: Keagan Holly MD Neutrophils (Bld) [#/Vol] 2.724 10*3/uL Normal 0991-7194 [facility] Comment on above: Performed By: #### 6 399, 7600, 11679 #### [facility] of [place] [address] Attendant Self Service Store: Keagan Holly MD Neutrophils/100 WBC (Bld) 51.4 % Normal [facility] Comment on above: Performed By: #### 6 399, 7600, 57471 #### [facility] [place] [address] Attendant [employer] Service Store: Keagan Holly MD Platelet mean volume (Bld) [Entitic vol] 9.1 fL Normal 7.5-12.5 [facility] Comment on above: Performed By: #### 6 399, 7600, 02739 #### [facility] [place] [address] Attendant Self Service Store: Keagan Holly MD Platelets (Bld) [#/Vol] 335 10*3/uL Normal 140-400 [facility] Comment on above: Performed By: #### 6 399, 7600, 21275 #### [facility] [place] [address] Attendant Self Service Store: Keagan Holly MD RBC (Bld) [#/Vol] 4.18 10*6/uL Normal 3.80-5.10 [facility] Comment on above: Performed By: #### 6 399, 7600, 96199 #### [facility] of [place] [address] Attendant Self Service Store: Keagan Holly MD WBC (Bld) [#/Vol] 5.3 10*3/uL Normal 3.8-10.8 [facility] Comment on above: Performed By: #### 6 399, 7600, 62563 #### [facility] of [address], [address] [place] [address] Attendant Self Service Store: Keagan Holly MD [facility] 08-04-2024 Albumin [Mass/Vol] 4.4 g/dL Normal 3.6-5.1 [facility] Comment on above: Performed By: #### 6 399, 7600, 14924 #### [facility] of [address], [address] [place] [address] Attendant [employer] Store: Keagan Holly MD Albumin/Globulin [Mass ratio] 1.8 {ratio} Normal 1.0-2.5 [facility] Comment on above: Performed By: #### 6 399, 7600, 12504 #### [facility] of [place] [address] Attendant [employer] Store: Keagan Holly MD ALP [Catalytic activity/Vol] 68 U/L Normal 37-153 [facility] Comment on above: Performed By: #### 6 399, 7600, 53869 #### [facility] [place] [address] Attendant Self Service Store: Keagan Holly MD ALT [Catalytic activity/Vol] 15 U/L Normal 6-29 [facility] Comment on above: Performed By: #### 6 399, 7600, 78040 #### [facility] [place] [address] Attendant Self Service Store: Keagan Holly MD AST [Catalytic activity/Vol] 18 U/L Normal 10-35 [facility] Comment on above: Performed By: #### 6 399, 7600, 60167 #### [facility] of [place] [address] Attendant [employer] Store: Keagan Holly MD Bilirubin [Mass/Vol] 0.5 mg/dL Normal 0.2-1.2 [facility] Comment on above: Performed By: #### 6 399, 7600, 05311 #### [facility] of [address] [place] [address] Attendant [employer] Store: Keagan Holly MD BUN/CREATININE RATIO SEE NOTE: Normal 6- [facility] Comment on above: Result Comment: Not Reported: BUN and Creatinine are within reference range. Performed By: #### 6 399, 7600, 30509 #### [facility] of [address], [address] [place] [address] Attendant [employer] Store: Keagan Holly MD Calcium [Mass/Vol] 9.5 mg/dL Normal 8.6-10.4 [facility] Comment on above: Performed By: #### 6 399, 7600, 47277 #### [facility] of [address], [address] [place] [address] Attendant [employer] Store: Keagan Holly MD Chloride [Moles/Vol] 100 mmol/L Normal 98-110 [facility] Comment on above: Performed By: #### 6 399, 7600, 18501 #### [facility] of [address], [address] [place] [address] Attendant [employer] Service Store: Keagan Holly MD CO2 [Moles/Vol] 31 mmol/L Normal 20-32 [facility] Comment on above: Performed By: #### 6 399, 7600, 13349 #### [facility] of [place] [address] Attendant [employer] Store: Keagan Holly MD Creatinine [Mass/Vol] 0.74 mg/dL Normal 0.60-1.00 [facility] Comment on above: Performed By: #### 6 399, 7600, 16060 #### [facility] of [address], [address] [place] [address] Attendant [employer] Store: Keagan Holly MD GFR/1.73 sq M.predicted among non-blacks MDRD (S/P/Bld) [Vol rate/Area] 84 mL/min/{1.73_m2} Normal > OR = 60 [facility] Comment on above: Performed By: #### 6 399, 7600, 12345 #### [facility] of [address], [address] [place] [address] Attendant [employer] Store: Keagan Holly MD Globulin (S) [Mass/Vol] 2.5 g/dL Normal 1.9-3.7 [facility] Comment on above: Performed By: #### 6 399, 7600, 99572 #### [facility] of [place] [address] Attendant Self Service Store: Keagan Holly MD Glucose [Mass/Vol] 88 mg/dL Normal 65-99 [facility] Comment on above: Result Comment: Fasting reference interval Performed By: #### 6 399, 7600, 84646 #### [facility] of [place] [address] Attendant Self Service Store: Keagan Holly MD Potassium [Moles/Vol] 4.0 mmol/L Normal 3.5-5.3 [facility] Comment on above: Performed By: #### 6 399, 7600, 51363 #### [facility] of [place] [address] Attendant Self Service Store: Keagan Holly MD Protein [Mass/Vol] 6.9 g/dL Normal 6.1-8.1 [facility] Comment on above: Performed By: #### 6 399, 7600, 97993 #### [facility] of [place] [address] Attendant Self Service Store: Keagan Holly MD Sodium [Moles/Vol] 138 mmol/L Normal 135-146 [facility] Comment on above: Performed By: #### 6 399, 7600, 75642 #### [facility] [place] [address] Attendant Self [employer] Store: Keagan Holly MD Urea nitrogen [Mass/Vol] 16 mg/dL Normal 7-25 [facility] Comment on above: Performed By: #### 6 399, 7600, 62869 #### [facility] of [place] [address] Attendant [employer] Store: Keagan Holly MD LIPID PANEL, [facility] 07-22 Cholesterol [Mass/Vol] 261 mg/dL High <200 [facility] Comment on above: Order Comment: FASTI NG:YES FASTING: YES Performed By: #### 6 399, 7600, 21193 #### [facility] [address], [address] [place], [place] [address] Attendant [employer] Store: Keagan Holly MD Cholesterol in HDL [Mass/Vol] 66 mg/dL Normal > OR = 50 [facility] Comment on above: Order Comment: FASTI NG:YES FASTING: YES Performed By: #### 6 399, 7600, 39883 #### [facility] [address], [address] [place] [address] Attendant Self [employer] Store: Keagan Holly MD Cholesterol in LDL [Mass/Vol] [...] LDL-C. Edwin SS et al. LUL. 2013;310(19): 8244-4083 (http://education.[employer]/faq/OZE572) Performed By: #### 6 399, 7600, 43698 #### [facility] [address], [address] [place] [address] Attendant Self Service Store: Keagan Holly MD Cholesterol.total/C holesterol in HDL [Mass ratio] 4.0 {ratio} Normal <5.0 [facility] Comment on above: Order Comment: FASTI NG:YES FASTING: YES Performed By: #### 6 399, 7600, 28023 #### [facility] [address], [address] [place], [place] [address] Attendant [employer] Store: Keagan Holly MD NON HDL CHOLESTEROL 195 mg/dL (calc) High <130 [facility] Comment on above: Order Comment: FASTI NG:YES FASTING: YES Result Comment: For patients with diabetes plus 1 major ASCVD risk factor, treating to a non-HDL-C goal of <100 mg/dL (LDL-C of <70 mg/dL) is considered a therapeutic option. Performed By: #### 6 399, 7600, 59680 #### [facility] [address], [address] [place] [address] Attendant Self Service Store: Keagan Holly MD Triglyceride [Mass/Vol] 181 mg/dL High <150 [facility] Comment on above: Order Comment: FASTI NG:YES FASTING: YES Performed By: #### 6 399, 7600, 60519 #### [facility] [address], [address] [place] [address] Attendant [employer] Store: Keagan Holly MD VITAMIN D,25-OH,TOTAL,IAon 0 08-04-2024 [...] D, (D2,D3), LC/MS/MS is recommended: order code 64193 (patients >2yrs). See Note 1 Note 1 For additional information, please refer to http://education.[employer]/faq/XGM729 (This link is being provided for informational/ educational purposes only.) Performed By: #### 6 399, 7600, 79127 #### [facility] [address], [address] [place] [address] Attendant [employer] Service Store: Keagan Holly MD CT COLONOGRAPHY SCREENINGon 01-21-2024 [...] presence or absence of which will not pipe changer of the patient. In addition, digital [...] Curry MD on 01/21/2024 8:17 AM Normal [facility] Cult,Bloodon 10-31-2023 Cult,Blood Specimen Description .BLOOD Special Requests 20ML RAC Culture NO GROWTH 5 DAYS Report Status FINAL 10/31/2023 Normal [facility] Comment on above: Performed By: #### B C #### [facility] [address] [place], [place] [id number] Board Filler: Ayden Regan MD Cult,Blood Specimen Description .BLOOD Special Requests 20ML LFT WRIST Culture NO GROWTH 5 DAYS Report Status FINAL 10/31/2023 Normal [facility] Comment on above: Performed By: #### B C #### [facility] [address] [place], [place] [address] Board Filler: Ayden Regan MD CBC with Diffon 10-27-2023 Abs. Basophil 0.03 k/uL Normal 0.00-0.20 [facility] Comment on above: Performed By: #### L ACDS #### [address] [place], [place] [address] Board Filler: Ayden Regan MD Abs.Imm.Granulocyte 0.03 k/uL Normal 0.00-0.30 [facility] Comment on above: Performed By: #### L ACDS #### [address] [place], [place] [address] Board Filler: Ayden Regan MD Abs.Neutrophil (Seg) 7.25 k/uL Normal 1.50-8.10 [facility] Comment on above: Performed By: #### L ACDS #### [address] [place], [place] [address] Board Filler: Ayden Regan MD Basophils/100 WBC (Bld) 0 % Normal 0-2 [facility] Comment on above: Performed By: #### L ACDS #### [address] [place], [place] [address] Board Filler: Ayden Regan MD Eosinophils (Bld) [#/Vol] 0.04 10*3/uL Normal 0.00-0.44 [facility] Comment on above: Performed By: #### L ACDS #### [facility] [address] [place], [place] [address] Board Filler: Ayden Regan MD Eosinophils/100 WBC (Bld) 0 % Low 1-4 [facility] Comment on above: Performed By: #### L ACDS #### [address] [place], [place] [address] Board Filler: Ayden Regan MD Erythrocyte distribution width (RBC) [Ratio] 12.5 % Normal 11.8-14.4 [facility] Comment on above: Performed By: #### L ACDS #### [address] [place], [facility]83 Board Filler: Ayden Regan MD Hematocrit (Bld) [Volume fraction] 29.2 % Low 36.3-47.1 [facility] Comment on above: Performed By: #### L ACDS #### [address] [place], [facility]83 Board Filler: Ayden Regan MD Hemoglobin (Bld) [Mass/Vol] 9.7 g/dL Low 11.9-15.1 [facility] Comment on above: Performed By: #### L ACDS #### [address] [place], [place] [address] Board Filler: Ayden Regan MD Immature granulocytes/100 WBC (Bld) 0 % Normal 0 [facility] Comment on above: Performed By: #### L ACDS #### [address] [place], [facility]83 Board Filler: Ayden Regan MD Lymphocytes (Bld) [#/Vol] 1.83 10*3/uL Normal 1.10-3.70 [facility] Comment on above: Performed By: #### L ACDS #### [address] [place], [place] [address] Board Filler: Ayden Regan MD Lymphocytes/100 WBC (Bld) 18 % Low 24-43 [facility] Comment on above: Performed By: #### L ACDS #### [facility] [address] [place], [place] [phone] Board Filler: Ayden Regan MD MCH (RBC) [Entitic mass] 30.1 pg Normal 25.2-33.5 [facility] Comment on above: Performed By: #### L ACDS #### [facility] [address] [place], [place] [phone] Board Filler: Ayden Regan MD MCHC (RBC) [Mass/Vol] 33.2 g/dL Normal 28.4-34.8 [facility] Comment on above: Performed By: #### L ACDS #### [address] [place], [place] [address] Board Filler: Ayden Regan MD MCV (RBC) [Entitic vol] 90.7 fL Normal 82.6-102.9 [facility] Comment on above: Performed By: #### L ACDS #### [address] [place], [place] [address] Board Filler: Ayden Regan MD Monocytes (Bld) [#/Vol] 1.02 10*3/uL Normal 0.10-1.20 [facility] Comment on above: Performed By: #### L ACDS #### [facility] [address] [place], [facility]83 Board Filler: Ayden Regan MD Monocytes/100 WBC (Bld) 10 % Normal 3-12 [facility] Comment on above: Performed By: #### L ACDS #### [facility] [address] [place], [place] [address] Board Filler: Ayden Regan MD Neutrophil (Seg) 71 % High 36-65 [facility] Comment on above: Performed By: #### L ACDS #### [facility] [address] [place], [place] [address] Board Filler: Ayden Regan MD NRBC Automated 0.0 per 100 WBC Normal 0.0 [facility] Comment on above: Performed By: #### L ACDS #### [facility] [address] [place], [facility]83 Board Filler: Ayden Regan MD Platelet mean volume (Bld) [Entitic vol] 8.7 fL Normal 8.1-13.5 [facility] Comment on above: Performed By: #### L ACDS #### [address] [place] [address] Board Filler: Ayden Regan MD Platelets (Bld) [#/Vol] 237 10*3/uL Normal 138-453 [facility] Comment on above: Performed By: #### L ACDS #### [address] [place], [place] [address] Board Filler: Ayden Regan MD RBC (Bld) [#/Vol] 3.22 10*6/uL Low 3.95-5.11 [facility] Comment on above: Performed By: #### L ACDS #### [address] [place], [facility]83 Board Filler: Ayden Regan MD WBC (Bld) [#/Vol] 10.2 10*3/uL Normal 3.5-11.3 [facility] Comment on above: Performed By: #### L ACDS #### [address] [place], [place] [address] Board Filler: Ayden Regan MD Comp Metabolic Pr/rfx MGon 0 10-27-2023 Albumin [Mass/Vol] 3.1 g/dL Low 3.5-5.2 [facility] Comment on above: Performed By: #### L ACDS #### [address] [place], [place] [address] Board Filler: Ayden Regan MD Albumin/Glob Ratio 1.3 Normal 1.0-2.5 [facility] Comment on above: Performed By: #### L ACDS #### [facility] [address] [place], [place] [address] Board Filler: Ayden Regan MD Alkaline Phos 80 U/L Normal 35-104 [facility] Comment on above: Performed By: #### L ACDS #### [facility] [address] [place], [place] [address] Board Filler: Ayden Regan MD ALT [Catalytic activity/Vol] 9 U/L Normal 5-33 [facility] Comment on above: Performed By: #### L ACDS #### [facility] [address] [place], [place] [address] Board Filler: Ayden Regan MD Anion gap [Moles/Vol] 8 mmol/L Low 9-17 [facility] Comment on above: Performed By: #### L ACDS #### [facility] [address] [place] [address] Dr[place], [place] [address] Board Filler: Ayden Regan MD AST [Catalytic activity/Vol] 13 U/L Normal <32 [facility] Comment on above: Performed By: #### L ACDS #### [facility] [address] [place], [place] [address] Board Filler: Ayden Regan MD Bilirubin [Mass/Vol] 0.6 mg/dL Normal 0.3-1.2 [facility] Comment on above: Performed By: #### L ACDS #### [facility] [address] [place] [address] Board Filler: Ayden Regan MD BUN/CRE Ratio 16 Normal 9-20 [facility] Comment on above: Performed By: #### L ACDS #### [facility] [address] [place] [address] Board Filler: Ayden Regan MD Calcium [Mass/Vol] 8.2 mg/dL Low 8.6-10.4 [facility] Comment on above: Performed By: #### L ACDS #### [facility] [facility] [address] [place], [place] [id number] Board Filler: Ayden Regan MD Chloride [Moles/Vol] 106 mmol/L Normal 98-107 [facility] Comment on above: Performed By: #### L ACDS #### [facility] [address] [place], [place] [phone] Board Filler: Ayden Regan MD CO2 [Moles/Vol] 26 mmol/L Normal 20-31 [facility] Comment on above: Performed By: #### L ACDS #### [facility] [address] [place], [place] 0584083 Board Filler: Ayden Regan MD Creatinine [Mass/Vol] 0.7 mg/dL Normal 0.5-0.9 [facility] Comment on above: Performed By: #### L ACDS #### [facility] [address] [place] [address] Board Filler: Ayden Regan MD GFR/1.73 sq M.predicted among non-blacks MDRD (S/P/Bld) [Vol rate/Area] mL/min/{1.73_m2} Normal >60 [facility] Comment on above: Result Comment: These [...] secretion. Performed By: #### L ACDS #### [facility] [address] [place], [place] 9342983 Board Filler: Ayden Regan MD Glucose [Mass/Vol] 97 mg/dL Normal 70-99 [facility] Comment on above: Performed By: #### L ACDS #### [facility] [address] [place], [place] [phone] Board Filler: Ayden Regan MD Potassium [Moles/Vol] 3.6 mmol/L Low 3.7-5.3 [facility] Comment on above: Performed By: #### L ACDS #### [facility] [address] [place], [place] 1542483 Board Filler: Ayden Reagn MD Protein [Mass/Vol] 5.4 g/dL Low 6.4-8.3 [facility] Comment on above: Performed By: #### L ACDS #### [facility] [address] [place] [address] Dr[address] [place], [place] [phone] Board Filler: Ayden Regan MD Sodium [Moles/Vol] 140 mmol/L Normal 135-144 [facility] Comment on above: Performed By: #### L ACDS #### [address] [place], [place] 6054783 Board Filler: Ayden Regan MD Urea nitrogen [Mass/Vol] 11 mg/dL Normal 8-23 [facility] Comment on above: Performed By: #### L ACDS #### [facility] [address] [place], [place] 7626383 Board Filler: Ayden Regan MD Cult,Urineon 10-27-2023 Cult,Urine Specimen Description .URINE,STRAIGHT CATHETER Culture STREPTOCOCCI, BETA HEMOLYTIC GROUP B 10 to 50,000 CFU/ML Report Status FINAL 10/27/2023 Normal [facility] Comment on above: Performed By: #### U RC #### [address] [id number] Board Filler: Nahum Nixon MD [facility] [address] [place] [address] Board Filler: Ayden Regan MD Procalcitoninon 10-27-2023 Procalcitonin 0.06 ng/mL Normal 0.00-0.09 [facility] Comment on above: Result Comment: Suspected [...] entered into the Change in Procalcitonin Calculator ([email or web address]) to determine the patient's Mortality Risk Prognosis In healthy neonates, plasma Procalcitonin (PCT) concentrations increase gradually after , reaching peak values at about 24 hours of age then decrease to normal values below 0.5 ng/mL by 48-72 hours of age. Performed By: #### P RCAL #### [address] [id number] Board Filler: Nahum Nixon MD CBC with Diffon 10-26-2023 Abs. Basophil 0.04 k/uL Normal 0.00-0.20 [facility] Comment on above: Performed By: #### T BRETT MELENDEZ, CP #### [facility] [address] [place] [address] Board Filler: Ayden Regan MD Abs.Imm.Granulocyte 0.04 k/uL Normal 0.00-0.30 [facility] Comment on above: Performed By: #### T BRETT MELENDEZ, CP #### [facility] [address] [place] [address] Board Filler: Ayden Regan MD Abs.Neutrophil (Seg) 9.87 k/uL High 1.50-8.10 [facility] Comment on above: Performed By: #### BRETT ALMANZA, CP #### [address] [place], [facility]83 Board Filler: Ayden Regan MD Basophils/100 WBC (Bld) 0 % Normal 0-2 [facility] Comment on above: Performed By: #### BRETT ALMANZA, CP #### [address] [place] [id number] Board Filler: Ayden Regan MD Eosinophils (Bld) [#/Vol] 0.06 10*3/uL Normal 0.00-0.44 [facility] Comment on above: Performed By: #### BRETT ALMANZA, CP #### [address] [place], [place] [address] Board Filler: Ayden Regan MD Eosinophils/100 WBC (Bld) 1 % Normal 1-4 [facility] Comment on above: Performed By: #### BRETT ALMANZA, CP #### [address] [place], [facility]83 Board Filler: Ayden Regan MD Erythrocyte distribution width (RBC) [Ratio] 12.1 % Normal 11.8-14.4 [facility] Comment on above: Performed By: #### BRETT ALMANZA, CP #### [address] [place], [facility]83 Board Filler: Ayden Regan MD Hematocrit (Bld) [Volume fraction] 37.2 % Normal 36.3-47.1 [facility] Comment on above: Performed By: #### BRETT ALMANZA, CP #### [address] [place], [facility]83 Board Filler: Ayden Regan MD Hemoglobin (Bld) [Mass/Vol] 12.6 g/dL Normal 11.9-15.1 [facility] Comment on above: Performed By: #### BRETT ALMANZA, CP #### [address] [place], [place] [phone] Board Filler: Ayden Regan MD Immature granulocytes/100 WBC (Bld) 0 % Normal 0 [facility] Comment on above: Performed By: #### BRETT ALMANZA, CP #### [address] [place] [address] Board Filler: Ayden Regan MD Lymphocytes (Bld) [#/Vol] 0.81 10*3/uL Low 1.10-3.70 [facility] Comment on above: Performed By: #### BRETT ALMANZA, CP #### [address] [place], [facility]83 Board Filler: Ayden Regan MD Lymphocytes/100 WBC (Bld) 7 % Low 24-43 [facility] Comment on above: Performed By: #### BRETT ALMANZA, CP #### [address] [place], [place] 8872583 Board Filler: Ayden Regan MD MCH (RBC) [Entitic mass] 30.4 pg Normal 25.2-33.5 [facility] Comment on above: Performed By: #### BRETT ALMANZA, CP #### [address] [place], [place] 9729983 Board Filler: Ayden Regan MD MCHC (RBC) [Mass/Vol] 33.9 g/dL Normal 28.4-34.8 [facility] Comment on above: Performed By: #### BRETT ALMANZA, CP #### [address] [place], [place] 9458383 Board Filler: Ayden Regan MD MCV (RBC) [Entitic vol] 89.9 fL Normal 82.6-102.9 [facility] Comment on above: Performed By: #### BRETT ALMANZA, CP #### [facility] [address] [place] [address] Dr. [place], [place] 6303283 Board Filler: Ayden Regan MD Monocytes (Bld) [#/Vol] 0.89 10*3/uL Normal 0.10-1.20 [facility] Comment on above: Performed By: #### BRETT ALMANZA, CP #### [address] [place] [address] Board Filler: Ayden Regan MD Monocytes/100 WBC (Bld) 8 % Normal 3-12 [facility] Comment on above: Performed By: #### BRETT ALMANZA, CP #### [address] [place], [place] [address] Board Filler: Ayden Regan MD Neutrophil (Seg) 84 % High 36-65 [facility] Comment on above: Performed By: #### BRETT ALMANZA, CP #### [address] [place], [place] 0630283 Board Filler: Ayden Regan MD NRBC Automated 0.0 per 100 WBC Normal 0.0 [facility] Comment on above: Performed By: #### BRETT ALMANZA, CP #### [address] [place], [facility]83 Board Filler: Ayden Regan MD Platelet mean volume (Bld) [Entitic vol] 8.5 fL Normal 8.1-13.5 [facility] Comment on above: Performed By: #### BRETT ALMANZA, CP #### [address] [place] [address] Board Filler: Ayden Regan MD Platelets (Bld) [#/Vol] 312 10*3/uL Normal 138-453 [facility] Comment on above: Performed By: #### T BRETT MELENDEZ, CP #### [facility] [address] [place], [place] [phone] Board Filler: Ayden Regan MD RBC (Bld) [#/Vol] 4.14 10*6/uL Normal 3.95-5.11 [facility] Comment on above: Performed By: #### T BRETT MELENDEZ, CP #### [facility] [address] [place], [place] 9553183 Board Filler: Ayden Regan MD WBC (Bld) [#/Vol] 11.7 10*3/uL High 3.5-11.3 [facility] Comment on above: Performed By: #### T BRETT MELENDEZ, CP #### [facility] [address] [place] KS 0671183 Board Filler: Ayden Regan MD CT HEAD WO CONTRASTon [...] Seven Moreno MD 10/26/23 Final result Normal [facility] Comp Metabolic Profon 2023 Albumin [Mass/Vol] 3.9 g/dL Normal 3.5-5.2 [facility] Comment on above: Performed By: #### T BRETT MELENDEZ, CP #### [facility] [address] [place], [place] 475[address]183 Board Filler: Ayden Regan MD Albumin/Glob Ratio 1.2 Normal 1.0-2.5 [facility] Comment on above: Performed By: #### T BRETT MELENDEZ, CP #### [facility] [address] [place], [place] 789[address]83 Board Filler: Ayden Regan MD Alkaline Phos 87 U/L Normal 35-104 [facility] Comment on above: Performed By: #### T BRETT MELENDEZ, CP #### [facility] [address] [place], [place] 5034783 Board Filler: Ayden Regan MD ALT [Catalytic activity/Vol] 12 U/L Normal 5-33 [facility] Comment on above: Performed By: #### T BRETT MELENDEZ, CP #### [facility] [address] [place], [place] 1247983 Board Filler: Ayden Regan MD Anion gap [Moles/Vol] 9 mmol/L Normal 9-17 [facility] Comment on above: Performed By: #### T BRETT MELENDEZ, CP #### [facility] [address] [place], [place] 4386183 Board Filler: Ayden Regan MD AST [Catalytic activity/Vol] 15 U/L Normal <32 [facility] Comment on above: Performed By: #### T BRETT MELENDEZ, CP #### [facility] [address] [place], [place] 1901683 Board Filler: Ayden Regan MD Bilirubin [Mass/Vol] 0.4 mg/dL Normal 0.3-1.2 [facility] Comment on above: Performed By: #### T BRETT MELENDEZ, CP #### [facility] [address] [place] [address] Board Filler: Ayden Regan MD BUN/CRE Ratio 16 Normal 9-20 [facility] Comment on above: Performed By: #### T BRETT MELENDEZ, CP #### [facility] [address] [place], [place] 5959983 Board Filler: Ayden Regan MD Calcium [Mass/Vol] 9.2 mg/dL Normal 8.6-10.4 [facility] Comment on above: Performed By: #### T BRETT MELENDEZ, CP #### [facility] [address] [place], [place] 3627883 Board Filler: Ayden Regan MD Chloride [Moles/Vol] 95 mmol/L Low 98-107 [facility] Comment on above: Performed By: #### BRETT ALMANZA, CP #### [facility] [address] [place] [address] Board Filler: Ayden Regan MD CO2 [Moles/Vol] 26 mmol/L Normal 20-31 [facility] Comment on above: Performed By: #### BRETT ALMANZA, CP #### [facility] [address] [place] [address] [place] [address] Board Filler: Ayden Regan MD Creatinine [Mass/Vol] 0.8 mg/dL Normal 0.5-0.9 [facility] Comment on above: Performed By: #### BRETT ALMANZA, CP #### [facility] [address] [place] [address] Board Filler: Ayden Regan MD GFR/1.73 sq M.predicted among non-blacks MDRD (S/P/Bld) [Vol rate/Area] 77 mL/min/{1.73_m2} Normal >60 [facility] Comment on above: Result Comment: These [...] By: #### T BRETT MELENDEZ, CP #### [facility] [address] [place] [address] [place] [address] Board Filler: Ayden Regan MD Glucose [Mass/Vol] 119 mg/dL High 70-99 [facility] Comment on above: Performed By: #### BRETT ALMANZA, CP #### [address] [place], [place] [phone] Board Filler: Ayden Regan MD Potassium [Moles/Vol] 3.8 mmol/L Normal 3.7-5.3 [facility] Comment on above: Performed By: #### BRETT ALMANZA, CP #### [address] [place], [place] 2201883 Board Filler: Ayden Regan MD Protein [Mass/Vol] 7.2 g/dL Normal 6.4-8.3 [facility] Comment on above: Performed By: #### BRETT ALMANZA, CP #### [address] [place], [place] 3661783 Board Filler: Ayden Regan MD Sodium [Moles/Vol] 130 mmol/L Low 135-144 [facility] Comment on above: Performed By: #### BRETT ALMANZA, CP #### [address] [place] [address] Board Filler: Ayden Regan MD Urea nitrogen [Mass/Vol] 13 mg/dL Normal 8-23 [facility] Comment on above: Performed By: #### BRETT ALMANZA, CP #### [facility] [address] [place], [place] 6133783 Board Filler: Ayden Regan MD Lactate, Sepsison 10-26-2023 Lactic Acid, Sepsis 1.0 mmol/L Normal 0.5-1.9 [facility] Comment on above: Performed By: #### L ACDS #### [facility] [address] [place] [address] [place], [place] 8555083 Board Filler: Ayden Regan MD Lactic Acid, Sepsis 1.6 mmol/L Normal 0.5-1.9 [facility] Comment on above: Performed By: #### L ACDS #### [address] [place], [place] [address]111183 Board Filler: Ayden Regan MD Troponinon 10-26-2023 Troponin, High Sens 12 ng/L Normal 0-14 [facility] Comment on above: Result Comment: High Sensitivity Troponin values cannot be compared with other Troponin methodologies. Performed By: #### L ACDS #### [address] [place], [place] 0202183 Board Filler: Ayden Regan MD Troponin, High Sens 12 ng/L Normal 0-14 [facility] Comment on above: Result Comment: High Sensitivity Troponin values cannot be compared with other Troponin methodologies. Performed By: #### T ROPI, CDP, CP #### [facility] [address] [place] [address] [place], [place] 3797083 Board Filler: Ayden Regan MD Urinalysis w/ Microon 2023 Bilirubin, SemiQt,Ur Negative Normal NEG [facility] Comment on above: Performed By: #### L ACDS #### [address] [place], [place] [address]53[address]83 Board Filler: Ayden Regan MD Blood, Urine Negative Normal NEG [facility] Comment on above: Performed By: #### L ACDS #### [facility] [address] [place] [address] [place], [place] 7882683 Board Filler: Ayden Regan MD Clarity (U) Clear Normal CLEAR [facility] Comment on above: Performed By: #### L ACDS #### [facility] [address] [place], [place] 8699383 Board Filler: Ayden Regan MD Color (U) Yellow Normal YEL [facility] Comment on above: Performed By: #### L ACDS #### [facility] [address] [place], [place] 9365283 Board Filler: Ayden Regan MD Epithelial cells LM Ql (Urine sed) 0 TO 2 Normal 0-25 [facility] Comment on above: Performed By: #### L ACDS #### [facility] [address] [place] [address] [place], [place] 9556083 Board Filler: Ayden Regan MD Glucose Ql (U) Negative Normal NEG [facility] Comment on above: Performed By: #### L ACDS #### [facility] [address] [place] [address] [place], [place] 5453383 Board Filler: Ayden Regan MD Ketones Ql (U) Negative Normal NEG [facility] Comment on above: Performed By: #### L ACDS #### [facility] [address] [place] [address] [place], [place] 4602883 Board Filler: Ayden Regan MD Leukocyte esterase Test strip Ql (U) Negative Normal NEG [facility] Comment on above: Performed By: #### L ACDS #### [facility] [address] [place] [address] [place], [place] 7800983 Board Filler: Ayden Regan MD Nitrite,Ur Negative Normal NEG [facility] Comment on above: Performed By: #### L ACDS #### [facility] [address] [place] [address] [place], [place] 0311283 Board Filler: Ayden Regan MD PH,Ur 6.5 Normal 5.0-9.0 [facility] Comment on above: Performed By: #### L ACDS #### [facility] [address] [place], [place] 5559283 Board Filler: Ayden Regan MD Protein Ql (U) Negative Normal NEG [facility] Comment on above: Performed By: #### L ACDS #### [facility] [address] [place], [place] 7705983 Board Filler: Ayden Regan MD Spec. [place],Ur 1.010 Normal 1.010-1.020 [facility] Comment on above: Performed By: #### L ACDS #### [facility] [address] [place] [address] [place], [place] 8597283 Board Filler: Ayden Regan MD Urine RBC's None Normal 0-2 [facility] Comment on above: Performed By: #### L ACDS #### [facility] [address] [place] [address] [place], [place] 3894283 Board Filler: Ayden Regan MD Urine WBC's None Normal 0-5 [facility] Comment on above: Performed By: #### L ACDS #### [facility] [address] [place] [address] [place], [place] [address]684683 Board Filler: Ayden Regan MD Urobilinogen,Ur Normal Normal 0.0-1.0 [facility] Comment on above: Performed By: #### L ACDS #### [facility] [address] [place] [address] [place], [place] 7439583 Board Filler: Ayden Regan MD XR CHEST PORTABLEon 10-26-19 [...] Ayden Siegel MD 10/26/23 Final result Normal [facility] ACID FAST SMEAR AND CXon Acid Fast Culture Negative Normal [facility] Comment on above: Result Comment: No a broderick fast bacilli isolated after 6 weeks. Performed By: #### A FB #### [facility] [address] [place] [address] Dr. Shari Allen Acid Fast Smear Negative Normal [facility] Comment on above: Performed By: #### A FB #### [facility] [address] [place] [address] Dr. Shari Allen [employer] Specimen Processing Concentration Normal [facility] Comment on above: Performed By: #### A FB #### [facility] [address] [place] [address] Dr. Shari Allen FUNGAL CULTUREon 2022 Fungus (Mycology) Culture Final report [facility] Comment on above: Performed By: #### C XFUN #### [facility] [address] [place] [address] Dr. Shari Allen Fungus Stain Final report Normal [facility] Comment on above: Performed By: #### C XFUN #### [facility] [address] [place] [address] Dr. Shari Allen Result 1 Comment Normal [facility] Comment on above: Result Comment: CHINO/ Calcofluor preparation: no fungus observed. Performed By: #### C XFUN #### [facility] [address] [place] [address] Dr. Shari Allen Result Comment: No y east or mold isolated after 4 weeks. CULTURE ANAEROBICon 10-23-19 23 CULTURE ANAEROBIC Culture Observations : NO GROWTH OF ANAEROBES AT 72 HOURS. Normal [facility] Comment on above: Performed By: #### C XFUN #### [facility] [address] [place] [address] [address] Shari Allen CULTURE OTHERon 10-22-2022 CULTURE OTHER Culture Observations : Light growth of NORMAL SKIN MARTHA. Culture Observations: NO GROWTH OF ANAEROBES AT 72 HOURS. Normal [facility] Comment on above: Performed By: #### C XFUN #### [facility] [address] [place] [address] [address] Shari Allen GRAM STAINon 10-22-2022 COMMENTS NO ORGANISMS OBSERVED Normal [facility] Comment on above: Performed By: #### G STAIN #### [facility] [address] [place] [address] Dr. Shari Allen DIPHTHEROIDS Normal [facility] Comment on above: Performed By: #### G STAIN #### [facility] [address] [place] [address] Dr. Shari Allen EPITHELIALS [facility] Comment on above: Performed By: #### G STAIN #### [facility] [address] [place] [address] Dr. Shari Allen FUNGAL ELEMENTS Normal [facility] Comment on above: Performed By: #### G STAIN #### [facility] [address] [place] [address] Dr. Shari YEPEZ NEG BACILLI [facility] Comment on above: Performed By: #### G STAIN #### [facility] [address] [place] [address] Dr. Shari Allen GRAM NEG DIPPLOCOCCI Normal [facility] Comment on above: Performed By: #### G STAIN #### [facility] [address] [place] [address] Dr. Shari YEPEZ POS BACILLI Normal [facility] Comment on above: Performed By: #### G STAIN #### [facility] [address] [place] [address] Dr. Shari Allen GRAM POSITIVE COCCI Normal [facility] Comment on above: Performed By: #### G STAIN #### [facility] [address] [place] [address] Dr. Shari Allen GRAM STAIN SOURCE Rt 2nd Toe Normal [facility] Comment on above: Performed By: #### G STAIN #### [facility] [address] [place] [address] [address] Shari Allen GS_DIPTH Normal [facility] Comment on above: Performed By: #### G STAIN #### [facility] [address] [place] [address] Dr. Shari Allen WBC RARE Normal [facility] Comment on above: Performed By: #### G STAIN #### [facility] [address] [place] [address] [address] Shari Allen POINT OF CARE GLUCOSEon 04-0 Glucose [Mass/Vol] 109 mg/dL Critically high 74-106 [facility] Comment on above: Performed By: #### P OCGLUC #### [facility] [address] [place] [address] Dr. Shari Aleln Glucose [Mass/Vol] 89 mg/dL Normal 74-106 [facility] Comment on above: Performed By: #### P OCGLUC #### [facility] [address] [place] [address] Dr. Shari Allen PROF CHEM 8 (BAS METB)on Anion gap [Moles/Vol] 12.2 mmol/L Normal [facility] Comment on above: Performed By: #### B MP #### [facility] [address] [place] [address] Dr. Shari Allen Calcium [Mass/Vol] 9.3 mg/dL Normal 8.5-10.1 [facility] Comment on above: Performed By: #### B MP #### [facility] [address] [place] [address] Dr. Shari Allen Chloride [Moles/Vol] 104 mmol/L Normal 98-107 [facility] Comment on above: Performed By: #### B MP #### [facility] [address] [place] [address] Dr. Shari Allen CO2 [Moles/Vol] 28.5 mmol/L Normal 21.0-32.0 [facility] Comment on above: Performed By: #### B MP #### [facility] [address] [address] [address] Shari Allen Creatinine [Mass/Vol] 0.83 mg/dL Normal 0.55-1.02 [facility] Comment on above: Performed By: #### B MP #### [facility] [address] [place] [address] Dr. Shari Allen EGFR-AF ITALIAN >60 Normal >=60 [facility] Comment on above: Performed By: #### B MP #### [facility] [address] [address] [address] Shari Allen EGFR-NON AF ITALIAN >60 Normal >=60 [facility] Comment on above: Performed By: #### B MP #### [facility] [address] [address] [address] Shari Allen Glucose [Mass/Vol] 89 mg/dL Normal 74-106 [facility] Comment on above: Performed By: #### B MP #### [facility] [address] [place] [address] Dr. Shari Allen Potassium [Moles/Vol] 3.7 mmol/L Normal 3.5-5.1 [facility] Comment on above: Performed By: #### B MP #### [facility] [address] [address] [address] Shari Allen Sodium [Moles/Vol] 141 mmol/L Normal 136-145 [facility] Comment on above: Performed By: #### B MP #### [facility] [address] [place] [address] Dr. Shari Allen Urea nitrogen [Mass/Vol] 18.0 mg/dL Normal 7.0-18.0 [facility] Comment on above: Performed By: #### B MP #### [facility] [address] [place] [address] Dr. Shari Allen Urea nitrogen/Creatinine [Mass ratio] 21.7 mg/mg Normal [facility] Comment on above: Performed By: #### B MP #### [facility] [address] [place] [address] Dr. Shari Allen POINT OF CARE GLUCOSEon 04-22 Glucose [Mass/Vol] 86 mg/dL Normal 74-106 [facility] Comment on above: Performed By: #### P OCGLUC #### [facility] [address] [place] [address] Dr. Shari Allen Glucose [Mass/Vol] 95 mg/dL Normal 74-106 [facility] Comment on above: Performed By: #### P OCGLUC #### [facility] [address] [place] [address] Dr. Shari Allen CBC AUTO DIFFon 05-07-2022 BASO # 0.0 103/ul Normal 0.0-0.1 [facility] Comment on above: Performed By: #### C BC #### [facility] [address] [place] [address] Dr. Shari Allen Basophils/100 WBC (Bld) 0.5 % Normal 0.2-2.0 [facility] Comment on above: Performed By: #### C BC #### [facility] [address] [place] [address] Dr. Shari Allen EO # 0.2 103/ul Normal 0.0-0.7 [facility] Comment on above: Performed By: #### C BC #### [facility] [address] [place] [address] Dr. Shari Allen Eosinophils/100 WBC (Bld) 2.9 % Normal 0.9-7.0 [facility] Comment on above: Performed By: #### C BC #### [facility] [address] [place] [address] Dr. Shari Allen Erythrocyte distribution width (RBC) [Ratio] 12.6 % Normal 11.0-15.0 [facility] Comment on above: Performed By: #### C BC #### [facility] [address] [place] [address] Dr. Shari Allen Hematocrit (Bld) [Volume fraction] 38.2 % Normal 36.0-48.0 [facility] Comment on above: Performed By: #### C BC #### [facility] [address] [place] [address] Dr. Shari Allen Hemoglobin (Bld) [Mass/Vol] 12.4 g/dL Normal 12.0-16.0 [facility] Comment on above: Performed By: #### C BC #### [facility] [address] [place] [address] Dr. Shari Allen IG # 0.01 10e3/ul Normal 0.00-0.03 [facility] Comment on above: Performed By: #### C BC #### [facility] [address] [place] [address] Dr. Shari Allen IG % 0.2 % Normal 0.0-0.5 [facility] Comment on above: Performed By: #### C BC #### [facility] [address] [place] [address] Dr. Shari Allen LYMPH # 2.0 103/ul Normal 1.2-3.8 [facility] Comment on above: Performed By: #### C BC #### [facility] [address] [place] [address] Dr. Shari Allen Lymphocytes/100 WBC (Bld) 31.7 % Normal 20.5-60.0 [facility] Comment on above: Performed By: #### C BC #### [facility] [address] [place] [address] Dr. Shari Allen MANUAL DIFF REQ NO Normal [facility] Comment on above: Performed By: #### C BC #### [facility] [address] [place] [address] Dr. Shari Allen MCH (RBC) [Entitic mass] 30.7 pg Normal 26.7-34.0 [facility] Comment on above: Performed By: #### C BC #### [facility] [address] [place] [address] Dr. Shari Allen MCHC (RBC) [Mass/Vol] 32.5 g/dL Normal 29.9-35.2 [facility] Comment on above: Performed By: #### C BC #### [facility] [address] [place] [address] Dr. Shari Allen MCV (RBC) [Entitic vol] 94.6 fL Normal 81.0-99.0 [facility] Comment on above: Performed By: #### C BC #### [facility] [address] [address] [address] Shari Allen MONO # 0.5 103/ul Normal 0.3-0.8 [facility] Comment on above: Performed By: #### C BC #### [facility] [address] [address] [address] Shari Allen Monocytes/100 WBC (Bld) 8.6 % Normal 1.7-12.0 [facility] Comment on above: Performed By: #### C BC #### [facility] [address] [place] [address] Dr. Shari Allen NEUT # 3.5 103/ul Normal 1.4-6.5 [facility] Comment on above: Performed By: #### C BC #### [facility] [address] [place] [address] Dr. Shari Allen Neutrophils/100 WBC (Bld) 56.1 % Normal 43.0-75.0 [facility] Comment on above: Performed By: #### C BC #### [facility] [address] [place] [address] Dr. Shari Allen Platelet mean volume (Bld) [Entitic vol] 8.5 fL Critically low 9.5-13.5 [facility] Comment on above: Performed By: #### C BC #### [facility] [address] [place] [address] Dr. Shari Allen PLT 304 103/ul Normal 150-450 [facility] Comment on above: Performed By: #### C BC #### [facility] [address] [place] [address] Dr. Shari Allen RBC 4.04 106/ul Critically low 4.20-5.40 [facility] Comment on above: Performed By: #### C BC #### [facility] [address] [place] [address] Dr. Shari Allen WBC 6.2 103/ul Normal 4.0-11.0 [facility] Comment on above: Performed By: #### C BC #### [facility] [address] [place] [address] Dr. Shari Allen Covid-19 PCR ([facility])on 04-21 SARS-CoV-2 (COVID-19) RNA LEANN+probe Ql (Unsp spec) Not detected Normal NOT DETECTED [facility] Comment on above: Result Comment: This test is not yet approved or cleared by the [place] FDA. When there are no FDA-approved or cleared tests available, and other criteria are met, FDA can make tests available under an emergency access mechanism called an Emergency Use Authorization (EUA). The EUA for this test is supported by the Evaporator Repairer of Health and Human Service's (HHS's) declaration [...] SARS-CoV-2. Performed By: #### C XFUN #### [facility] [address] [place] [address] Dr. Shari Allen PROF CHEM 8 (BAS METB)on Anion gap [Moles/Vol] 11.1 mmol/L Normal [facility] Comment on above: Performed By: #### B MP #### [facility] [address] [place] [address] Dr. Shari Allen Calcium [Mass/Vol] 9.0 mg/dL Normal 8.5-10.1 [facility] Comment on above: Performed By: #### B MP #### [facility] [address] [place] [address] Dr. Shari Allen Chloride [Moles/Vol] 104 mmol/L Normal 98-107 [facility] Comment on above: Performed By: #### B MP #### [facility] [address] [address] [address] Shari Allen CO2 [Moles/Vol] 29.7 mmol/L Normal 21.0-32.0 [facility] Comment on above: Performed By: #### B MP #### [facility] [address] [address] [address] Shari Allen Creatinine [Mass/Vol] 0.80 mg/dL Normal 0.55-1.02 [facility] Comment on above: Performed By: #### B MP #### [facility] [address] [address] [address] Shari Allen EGFR-AF ITALIAN >60 Normal >=60 [facility] Comment on above: Performed By: #### B MP #### [facility] [address] [address] [address] Shari Allen EGFR-NON AF ITALIAN >60 Normal >=60 [facility] Comment on above: Performed By: #### B MP #### [facility] [address] [address] [address] Shari Allen Glucose [Mass/Vol] 87 mg/dL Normal 74-106 [facility] Comment on above: Performed By: #### B MP #### [facility] [address] [address] [address] Shari Allen Potassium [Moles/Vol] 3.8 mmol/L Normal 3.5-5.1 [facility] Comment on above: Performed By: #### B MP #### [facility] [address] [address] [address] Shari Allen Sodium [Moles/Vol] 141 mmol/L Normal 136-145 [facility] Comment on above: Performed By: #### B MP #### [facility] [address] [address] [address] Shari Allen Urea nitrogen [Mass/Vol] 14.0 mg/dL Normal 7.0-18.0 [facility] Comment on above: Performed By: #### B MP #### [facility] [address] [address] [address] Shari Allen Urea nitrogen/Creatinine [Mass ratio] 17.5 mg/mg Normal [facility] Comment on above: Performed By: #### B #### [facility] [address] [address] [address] Shari Allen Vital Signs Date Time Vital Sign Value Performing Clinician Fox romero 02-23-2025 10:110400 Body height 180.3 cm Nicky Hemmer PA Work Phone: [facility] 02-23-2025 10:11-0400 Body mass index (BMI) [Ratio] 20.33 kg/m2 Nicky Hemmer PA Work Phone: [facility] 02-23-2025 10:11040 Body weight 66.13 kg Nicky Hemmer PA Work Phone: [facility] 02-23-2025 10:11-0400 Diastolic blood pressure 82 mm[Hg] Nicky Hemmer PA Work Phone: [facility] 02-23-2025 10:11-0400 Heart rate 71 /min Nicky Hemmer PA Work Phone: [facility] 02-23-2025 10:11-0400 Respiratory rate 16 /min Nicky Hemmer PA Work Phone: [facility] 02-23-2025 10:11-0400 SaO2% (BldA) [Mass fraction] 96 % Nicky Hemmer PA Work Phone: [facility] 02-23-2025 10:11-0400 Systolic blood pressure 136 mm[Hg] Nicky Hemmer PA Work Phone: [facility] 11-11-2024 09:29-0400 Body height 180.3 cm Tsering Starr MICROBIOLOGICAL LAB TECHNICIAN Work Phone: [facility] 11-11-2024 09:29-0400 Body mass index (BMI) [Ratio] 20.73 kg/m2 Tsering Starr MICROBIOLOGICAL LAB TECHNICIAN Work Phone: [facility] 11-11-2024 09:29-0400 Body weight 67.41 kg Tsering Starr MICROBIOLOGICAL LAB TECHNICIAN Work Phone: [facility] 11-11-2024 09:29-0400 Diastolic blood pressure 82 mm[Hg] Tsering Starr MICROBIOLOGICAL LAB TECHNICIAN Work Phone: [facility] 11-11-2024 09:29-0400 Heart rate 64 /min Tsering Starr MICROBIOLOGICAL LAB TECHNICIAN Work Phone: [facility] 11-11-2024 09:29-0400 Respiratory rate 16 /min Tsering [place] Chip MICROBIOLOGICAL LAB TECHNICIAN Work Phone: [facility] 11-11-2024 09:29-0400 SaO2% (BldA) [Mass fraction] 95 % Tsering Starr MICROBIOLOGICAL LAB TECHNICIAN Work Phone: [facility] 11-11-2024 09:29-0400 Systolic blood pressure 142 mm[Hg] Tsering Starr MICROBIOLOGICAL LAB TECHNICIAN Work Phone: [facility] 07-30-2024 09:10-0500 Body height 180.3 cm Nicky Hemmer PA Work Phone: [facility] 07-30-2024 09:10-0500 Body mass index (BMI) [Ratio] 19.67 kg/m2 Nicky Hemmer PA Work Phone: [facility] 07-30-2024 09:10-0500 Body weight 63.96 kg Nicky Hemmer PA Work Phone: [facility] 07-30-2024 09:10-0500 Diastolic blood pressure 76 mm[Hg] Nicky Hemmer PA Work Phone: [facility] 07-30-2024 09:10-0500 Heart rate 64 /min Nicky Hemmer PA Work Phone: [facility] 07-30-2024 09:10-0500 Respiratory rate 16 /min Nicky Hemmer PA Work Phone: [facility] 07-30-2024 09:10-0500 SaO2% (BldA) [Mass fraction] 99 % Nicky Hemmer PA Work Phone: [facility] 07-30-2024 09:10-0500 Systolic blood pressure 118 mm[Hg] Nicky Hemmer PA Work Phone: [facility] 05-04-2024 15:10-0400 Body height 180.3 cm Kvng Linton MD Work Phone: [facility] 05-04-2024 15:10-0400 Body mass index (BMI) [Ratio] 19.25 kg/m2 Kvng Linton MD Work Phone: [facility] 05-04-2024 15:10-0400 Body weight 62.6 kg Kvng Linton MD Work Phone: [facility] 05-04-2024 15:10-0400 Diastolic blood pressure 74 mm[Hg] Kvng Linton MD Work Phone: [facility] 05-04-2024 15:10-0400 Heart rate 77 /min Kvng Linton MD Work Phone: [facility] 05-04-2024 15:10-0400 SaO2% (BldA) [Mass fraction] 100 % Kvng Linton MD Work Phone: [facility] 05-04-2024 15:10-0400 Systolic blood pressure 128 mm[Hg] Kvng Linton MD Work Phone: [facility] 09-04-2023 11:26-0500 Body height 180.3 cm Kvng Linton MD Work Phone: [facility] 09-04-2023 11:26-0500 Body mass index (BMI) [Ratio] 19.8 kg/m2 Kvng Linton MD Work Phone: [facility] 09-04-2023 11:26-0500 Body weight 64.41 kg Kvng Linton MD Work Phone: [facility] 09-04-2023 11:26-0500 Diastolic blood pressure 62 mm[Hg] Kvng Linton MD Work Phone: [facility] 09-04-2023 11:26-0500 Heart rate 61 /min Kvng Linton MD Work Phone: [facility] 09-04-2023 11:26-0500 SaO2% (BldA) [Mass fraction] 99 % Kvng Linton MD Work Phone: [facility] 09-04-2023 11:26-0500 Systolic blood pressure 106 mm[Hg] Kvng Linton MD Work Phone: [facility] Encounters Encounter Date Encounter Type Care Provider Facility Start: 03-16-2025 End: 03-16-2025 ambulatory KATLIN ROMERO Not Available Start: 03-16-2025 End: 03-16-2025 Postop follow up visit related to original px Katlin Romero MD Work Phone: [facility] Comment on above: Encounter for remova l of sutures Start: 03-16-2025 End: 03-16-2025 Bamboo flowsheet Katlin Romero MD Work Phone: [facility] Start: 03-16-2025 End: 03-16-2025 Bamboo flowsshelly Romero MD Work Phone: [facility] Start: 03-02-2025 End: 03-02-2025 Patient encounter procedure Katlin Romero MD Work Phone: [facility] Comment on above: Epidermal inclusion cyst (Primary Dx); Pain Start: 03-02-2025 End: 03-02-2025 ambulatory KATLIN ROMERO Not Available Start: 03-02-2025 End: 03-02-2025 Bamboo flowsheet Katlin Romero MD Work Phone: [facility] Start: 03-02-2025 End: 03-02-2025 Bamboo flowsheet Katlin Romero MD Work Phone: [facility] Start: 02-23-2025 End: 02-23-2025 Bamboo flowsheet Nicky TURNER Work Phone: [facility] Start: 02-23-2025 End: 02-23-2025 Bamboo flowsheet Nicky TURNER Work Phone: [facility] [place] [facility] Start: 02-23-2025 End: 02-23-2025 Patient encounter procedure Nicky TURNER Work Phone: [facility] Comment on above: Medicare annual [facility], subsequent (Primary Dx); ACP (advance care [...] 11-11-2024 End: 11-11-2024 Bamboo flowsheet Tsering Starr MICROBIOLOGICAL LAB TECHNICIAN Work Phone: [facility] Start: 11-11-2024 End: 11-11-2024 Bamboo flowsheet Tsering Starr MICROBIOLOGICAL LAB TECHNICIAN Work Phone: [facility] Start: 11-11-2024 End: 11-11-2024 Office outpatient visit 25 minutes Tsering Starr MICROBIOLOGICAL LAB TECHNICIAN Work Phone: [facility] Comment [...] Evaluation and management of inpatient BRITTANY DEGROOT [facility] Start: 03-13-2024 End: 03-14-2024 Evaluation and management of inpatient [facility] Start: 03-13-2024 End: 03-13-2024 Evaluation and management of inpatient [facility] Start: 03-05-2024 End: 03-05-2024 ambulatory KVNG LINTON [facility] Start: 02-25-2024 End: 02-25-2024 ambulatory SEBASTIAN LAWSON [facility] Start: 02-12-2024 End: 02-12-2024 ambulatory [facility] Start: 01-16-2024 End: 01-16-2024 ambulatory [facility] Start: 12-20-2023 End: 12-20-2023 Evaluation and management of inpatient AYDEN LAN [facility] Start: 12-19-2023 End: 12-20-2023 Evaluation and management of inpatient [facility] Start: 11-28-2023 End: 11-28-2023 ambulatory JESUS Newsome BINGHAM [facility] Start: 10-26-2023 End: 10-27-2023 Evaluation and management of inpatient [facility] Start: 09-05-2023 ambulatory Facility:[facility] Start: 09-04-2023 [...] Start: 10-19-2022 Encounter for preprocedural cardiovascular examination [facility] Start: 10-19-2022 Encounter for preprocedural laboratory examination [facility] Start: 10-16-2022 End: 10-17-[address] KVNG LINTON Facility:[facility] Start: 10-16-2022 End: 10-17-2022 Encounter for preprocedural cardiovascular examination DR KVNG LINTON Facility:[facility] Start: 10-09-2022 End: 10-10-[address] KVNG LINTON Facility:[facility] Start: 09-25-2022 End: 09-26-[address] KVNG LINTON Facility:[facility] Start: 09-18-2022 End: 09-19-[address] KNVG LINTON Facility:[facility] Start: 07-27-2022 End: 07-28-2022 ambulatory [...] Dermatology [address] [place] [id number] Katlin Romero MD [address] [place] [address] [facility] Start: 03-02-2025 End: 03-02-2025 Patient encounter procedure [facility] Comment on above: Arrived Start: 02-23-2025 End: 02-23-2025 Patient encounter procedure 02/23/2025 10:00 AM EDT Office Visit [facility] [address] [place] [address] Nicky Riddle PA [address] [place] [address] Arrived [facility] Comment on above: Arrived Start: 02-05-2025 Medicare Annual Wellness (AWV) Medicare Annual Wellness (AWV) [facility] Start: 01-06-2025 End: 01-06-2025 Patient encounter procedure 01/06/2025 11:00 AM EDT Office Visit [facility] [address] [place] [address] Tsering Starr NP [address] [place] [address] [facility] Start: 12-30-2024 End: 12-30-2024 Patient encounter procedure 12/30/2024 12:50 PM EDT Office Visit [facility] [address] [place] [address] Gabriela Gilman, PA [address] [place] [address] Arrived [facility] Comment on above: Arrived Start: 11-23-2024 End: 11-23-2024 Patient encounter procedure 11/23/2024 4:00 PM EDT Office Visit [facility] [address] [place] [address] Kvng Linton MD [address] [place] [address] [facility] Start: 11-11-2024 End: 11-11-2024 Patient encounter procedure 11/11/2024 9:30 AM EDT Office Visit [facility] [address] [place] [address] Tsering Starr NP [address] [place] [address] Arrived [facility] Comment on above: [...] of sepsis Expected: 07/30/2024 (Approximate), Expires: 07/30/2025 [facility] Work Phone: Comment on above: Expected: 07/30/2024 (Approximate), Expi res: 07/30/2025 Start: 07-30-2024 End: 07-30-2025 Comprehensive metabolic 2000 panel - Serum or Plasma Comprehensive metabolic panel Lab Routine Essential (primary) hypertension (CMS/HCC) Expected: 07/30/2024 (Approximate), Expires: 07/30/2025 [facility] Comment on above: Expected: 07/30/2024 (Approximate), Expi res: 07/30/2025 Start: 07-30-2024 End: 07-30-2025 Lipid 1996 panel - Serum or Plasma Lipid panel Lab Routine Essential (primary) hypertension (CMS/HCC) Expected: 07/30/2024 (Approximate), Expires: 07/30/2025 [facility] Comment on above: Expected: 07/30/2024 (Approximate), Expi res: 07/30/2025 Start: 07-30-2024 End: 07-30-2024 Patient encounter procedure 07/30/2024 9:00 AM EST Office Visit [facility] [address] [place] [address] Nicky Riddle PA [address] [place] [address] Arrived [facility] Comment on above: Arrived Start: 05-04-2024 End: 05-04-2024 Patient encounter procedure 05/04/2024 3:15 PM EDT Office Visit [facility] [address] [place] [address] Kvng Linton MD [address] [place] [address] Arrived [facility] Comment on above: Arrived Start: 03-22-2024 Influenza vaccination Influenza Vaccine (#1) [facility] Start: 09-04-2023 End: 09-04-2025 Echocardiogram 2D complete Echocardiogram 2D complete Echocardiography Routine TIA (transient ischemic attack) Expected: 09/04/2023 (Approximate), Expires: 09/04/2025 [facility] Work Phone: Comment on above: Expected: 09/04/2023 (Approximate), Expi res: 09/04/2025 Start: 09-04-2023 End: 09-04-2023 Patient encounter procedure 09/04/2023 11:30 AM EST Office Visit [facility] [address] [facility] [address] [place] [address] Kvng Linton MD [address] [facility] [address] [place] [address] Arrived [facility] Comment on above: Arrived Start: 05-07-2023 Medicare Annual Wellness (AWV) Medicare Annual Wellness (AWV) [facility] Start: 03-22-2023 Influenza vaccination Influenza Vaccine (#1) [facility] Start: 1945 Screening for malignant neoplasm of colon [facility] Dermatopathology exam Dermatopat hology exam Pathology and Cytology Timed Epidermal inclusion cyst Release Upon Ordering for 1 Occurrences starting 03/02/2025 [facility] Work Phone: Comment on above: Release Upon Ordering for 1 Occurrences starting 03/02/2025 Immunizations Immunization Date Immunization Notes Care Provider Fa [facility] 07-05-2022 Influenza, High-dose Seasonal, Quadrivalent, Preservative Free Kvng Linton MD Work Phone: [facility] 07-05-2022 influenza virus vacc ine, unspecified formulation Kvng Linton MD Work Phone: [facility] 05-03-2021 influenza, high dose seasonal, preservative-free Kvng Linton MD Work Phone: [facility] 04-12-2020 Influenza, High-dose Seasonal, Quadrivalent, Preservative Free Kvng Linton MD Work Phone: [facility] 04-12-2020 pneumococcal conjuga te vaccine, 13 valjose Linton MD Work Phone: [facility] 04-05-2020 influenza, high dose seasonal, preservative-free Kvng Linton MD Work Phone: [facility] 04-05-2020 pneumococcal polysaccharide vaccine, 23 valjose Linton MD Work Phone: [facility] 07-02-2019 influenza, high dose seasonal, preservative-free Kvng Linton MD Work Phone: [facility] 06-05-2018 Influenza, injectabl e, Madin [place] Canine Kidney, preservative free, quadrivalent Kvng Linton MD Work Phone: [facility] 04-23-2018 seasonal influenza, intradermal, preservative free Kvng Linton MD Work Phone: [facility] 04-23-2016 influenza, injectabl e, quadrivalent, contains preservative Kvng Linton MD Work Phone: [facility] 11-16-2013 pneumococcal polysaccharide vaccine, 23 valent Kvng Linton MD Work Phone: [facility] 01-21-2012 tetanus toxoid, redu nithin diphtheria toxoid, and acellular pertussis vaccine, adsorbed Kvng Linton MD Work Phone: [facility] Payers Date Payer Category Payer Medicare [id number] 2023 Medicare (Managed Care) RASHID LU [id number] 2023 Medicare [id number] 2013 Medicare [id number] 1959 Medicare [id number] 1959 Unknown [id number] 1947 Unknown [id number] 2.16.840.1.003643.3.579.2. 593 1947 Unknown [id number] 2.16.840.1.657527.3.579.2. 593 1947 Unknown [id number] 2.16.840.1.340630.3.579.2. 593 1947 Unknown [id number] 2.16.840.1.455039.3.579.2. 593 1947 Unknown [id number] 2.16.840.1.621282.3.579.2. 593 1947 Unknown [id number] 2.16840.1.150371.3.579.2. 593 1947 Unknown [id number] 2.16.840.1.135384.3.579.2. 593 1947 Unknown [id number] 2.16.840.1.227657.3.579.2. 593 1947 Unknown [id number] 2.16.840.1.626397.3.579.2. 593 1947 Unknown [id number] 2.16.840.1.229950.3.579.2. 593 1947 Unknown [id number] 2.16.840.1.223958.3.579.2. 593 1947 Unknown [id number] 2.16.840.1.492096.3.579.2. 593 1947 Unknown [id number] 2.16.840.1.310363.3.579.2. 593 1947 Unknown [id number] 2.16.840.1.711350.3.579.2. 593 1947 Unknown [id number] 2.16.840.1.905420.3.579.2. 593 1947 Unknown [id number] 2.16.840.1.984883.3.579.2. 593 1947 Unknown [id number] 2.16.840.1.287150.3.579.2. 593 1947 Unknown [id number] 2.16.840.1.319907.3.579.2. 593 1947 Unknown [id number] 2.16.840.1.292591.3.579.2. 593 1947 Unknown [id number] 2.16.840.1.105444.3.579.2. 593 1947 Unknown [id number] 2.16840.1.189219.3.579.2. 593 1947 Unknown [id number] 2.16840.1.573378.3.579.2. 593 1947 Unknown [id number] 2.16840.1.295079.3.579.2. 593 1947 Unknown [id number] 2.16.840.1.011200.3.579.2. 593 1947 Unknown [id number] 2.16840.1.171518.3.579.2. 593 1947 Unknown [id number] 2.16.840.1.427348.3.579.2. 173 1947 Unknown [id number] 2.16.840.1.855642.3.579.2. 1286 1947 Unknown [id number] 2.16.840.1.481078.3.579.2. 1286 1947 Unknown [id number] 2.16.840.1.774565.3.579.2. 1286 8 Unknown [id number] 2.16.840.1.007621.3.579.2. 1285 1947 Unknown [id number] 2.16.840.1.288055.3.579.2. 1285 1947 Unknown [id number] 2.16.840.1.450144.3.579.2. 1285 1947 Unknown [id number] 2.16.840.1.583611.3.579.2. 1285 1947 Unknown [id number] 2.16.840.1.120544.3.579.2. 1285 1947 Unknown [id number] 2.16.840.1.654352.3.579.2. 1285 1947 Unknown [id number] 2.16840.1.522771.3.579.2. 1285 1947 Unknown [id number] 2.16840.1.553451.3.579.2. 1285 1947 Unknown [id number] 2.16840.1.527198.3.579.2. 1285 1947 Unknown [id number] 2.16840.1.309200.3.579.2. 1285 1947 Unknown [id number] 2.840.1.492305.3.579.2. 1258 1947 Unknown [id number] 2.16.840.1.728953.3.579.2. 1258 1947 Unknown [id number] 2.16.840.1.561740.3.579.2. 1258 1947 Unknown [id number] 2.16.840.1.493041.3.579.2. 1258 1947 Unknown [id number] 2.16840.1.786192.3.579.2. 1258 1947 Unknown [id number] 2.16840.1.778705.3.579.2. 1259 1947 Unknown [id number] 2.16.840.1.734114.3.579.2. 1259 Social History Date Type Detail Facility Start: 03-12-2023 End: 11-11-2024 Tobacco smoking status SCIS Ex-smoker [facility] Start: 07-30-1965 End: 07-22-1992 History of tobacco use Current smoker [facility] Start: 07-30-1965 End: 07-22-1992 History of tobacco use Cigarette Smoker [facility] Start: 03-12-2023 End: 11-11-2024 Tobacco use and exposure Smokeless tobacco non-user [facility] Start: 08-30-2023 End: 09-04-2023 Alcohol intake Not Asked [facility] Start: 03-12-2023 End: 03-05-2024 History of Social function [facility] Work Phone: Start: 03-12-2023 End: 03-05-2024 Tobacco use panel [facility] Work Phone: Start: 03-14-2023 Alcohol Comment caffeine intak e: more than 4 cups per day. [facility] Start: 1945 Sex Assigned At Not on file N [facility] Start: 03-31-2024 End: 03-16-2025 Alcoholic beverage [...] got money to buy more. Never true [facility] In the past 12 month s, was there a time when you were not able to pay the mortgage or rent on time? No [facility] Functional Status Date Assessment Result Facility 02-23-2025 Patient Health Quest ionnaire 2 item (PHQ-2) [Reported] [facility] 11-11-2024 Patient Health Quest ionnaire 2 item (PHQ-2) [Reported] [facility] Clinical Notes 02-26-2022 to 03-16-2025 Katlin Romero [...] Visit: As needed documented in this encounter [facility] 03-02-2025 History of Present illness Narrative Images [...] days for s/r documented in this encounter [facility] 02-23-2025 History of Present illness Narrative Images [...] Do you have a medical power of criminal attorney?: No Current Outpatient Medications on File [...] a living will and durable power of criminal attorney for healthcare. We discussed telling yoder [...] Nicky POTTS, KRISTOFERC documented in this encounter [facility] 12-30-2024 History of Present illness Narrative Images [...] Visit: 03/02/2025, excision documented in this encounter [facility] 11-11-2024 History of Present illness Narrative Images [...] follow-ups on file. documented in this encounter [facility] 08-31-2024 Telephone encounter Note Acknowledged. [facility] 08-31-2024 Miscellaneous Notes Acknowledged. Patient was contacted by JOCE Castro for a sleep study and at this time she wants to cancel the study, for she doesn't feel it is necessary. documented in this encounter [facility] 08-31-2024 Telephone encounter Note Acknowledged. [facility] 08-31-2024 Miscellaneous Notes Acknowledged. 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 Matthew, I was just [...] call me at my cell phone number. [phone], thank you. documented in this encounter [facility] 08-25-2024 Telephone encounter Note Patient was contacted by JOCE Castro for a sleep study and at this time she wants to cancel the study, for she doesn't feel it is necessary. 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 Matthew, I was just [...] call me at my cell phone number. [phone], thank you. [facility] 07-30-2024 History of Present illness Narrative Images [...] 08/27/2024) for Recheck. documented in this encounter [facility] 05-08-2024 Telephone encounter Note Sent. [facility] 05-08-2024 Miscellaneous Notes Sent. documented in this encounter [facility] 05-04-2024 History of Present illness Narrative Images [...] for Routine F/U. documented in this encounter [facility] 04-06-2024 Telephone encounter Note Patient came in [...] OTC 1 hour prior to each pill. [facility] 04-06-2024 Miscellaneous Notes Patient came in with [...] to each pill. documented in this encounter [facility] 09-04-2023 History of Present illness Narrative Subjective Patient ID: Berenice Silva is a 77 y.o. female who presents for Follow-up ([facility] stay admitted 08/24/23 dx: TIA discharged home 08/25/23 advised to take ASA 325mg). Flowsheet Row Telephone from 08/30/2023 in [facility] with Kvng Linton MD Discharge Information ED or Hospital Discharge? Hospital Patient has been contacted within two business days of discharge No Have two attempts been made to contact the patient within two business days of being discharged? No Discharge Date 08/25/23 Discharge Hospital [facility] Discharged To: Home Setting Engagement Call [...] THE MORNING 90 tablet 0 [DISCONTINUED] HYDROcodone-acetaminophen ([place]) 5-325 MG tablet Take 1 tablet by [...] for Test/Lab Review. documented in this encounter [facility] 10-22-2022 Note PROCEDURE: XR FOOT R T [...] authenticated by: HALEIGH FINE Date: 2022-10-22 16:24 [facility] 10-09-2022 Note PROCEDURE: XR FOOT R [...] by: AYDEN SERRA Date: 2022-10-09 14:38 [facility] 09-18-2022 Note PROCEDURE: XR FOOT R T [...] authenticated by: AYDEN SERRA Date: 2022-09-18 17:34 [facility] 05-10-2022 Note PROCEDURE: XR FOOT R T 2V COMPARISON: 02/23/2022 HISTORY: Pain FINDINGS: BONES:Stable medial effusion with plates and screws. Stable subtalar fusion. Changing configuration of the lateral sesamoid of the first metatarsal SOFT TISSUES:Negative. No visible soft tissue swelling. EFFUSION:None visible. OTHER: Negative. IMPRESSION: Intraprocedural fluoroscopic images Electronically authenticated by: AYDEN SERRA Date: 2022-05-10 17:33 [facility] 05-10-2022 Note PROCEDURE: XR FOOT R T [...] by: AYDEN SERRA Date: 2022-05-10 17:32 [facility] 02-26-2022 Note PROCEDURE: XR FOOT R T [...] by: AYDEN SERRA Date: 2022-02-26 07:57 [facility] Evaluation note Diagnosis TIA (transient ischemic attack)- [...] To Contact Urology Diagnoses Urinary frequency Procedures MI OFFICE/OUTPATIENT [facility] 60 MINUTES Kvng Linton MD [address] [address] Vee Hatfield MD [address] [place] [id number] Referral ID Status Reason Start Date Expiration Date Visits Requested Visits Authorized [id number] Pending Review Specialty Services Required 09/04/2023 03/02/2024 1 1 * Consultation (Routine) - Pending Review Specialty Diagnoses / Procedures Referred By Contac t Referred To Contact Neurology Diagnoses TIA (transient ischemic attack) Procedures MI OFFICE/OUTPATIENT NEW HIGH [facility]DM 60 MINUTES Kvng Linton MD 112 [facility] [address] [place] [address] Damion Longo MD [address] [place] [address] Referral ID Status Reason Start Date Expiration Date Visits Requested Visits Authorized [id number] Pending Review Specialty Services Required 09/04/2023 03/02/2024 1 1 * Imaging (Routine) - Pending Review Specialty Diagnoses / Procedures Referred By Contac t Referred To Contact Cardiology Diagnoses TIA (transient ischemic attack) Procedures Echocardiogram 2D complete Kvng Linton MD [address] [address] Referral ID Status Reason Start Date Expiration Date Visits Requested Visits Authorized [id number] Pending Review Perform Procedure 09/04/2023 03/02/2024 1 [...] and content) DATE CREATED AUTHOR 12/28/2022 [facility] DATE CREATED AUTHOR AUTHOR'S ORGANIZ ATION 09/07/2023 [facility] DATE CREATED AUTHOR AUTHOR'S ORGANIZ ATION 11/01/2023 [facility] DATE CREATED AUTHOR AUTHOR'S ORGANIZ ATION 01/22/2024 [facility] DATE CREATED AUTHOR AUTHOR'S ORGANIZ ATION 02/27/2024 [facility] DATE CREATED AUTHOR AUTHOR'S ORGANIZ ATION 03/15/2024 [facility] DATE CREATED AUTHOR AUTHOR'S ORGANIZ ATION 08/07/2024 [facility] DATE CREATED AUTHOR AUTHOR'S ORGANIZ ATION 03/18/2025 [facility] Care Teams (unrecognized sec tion and content) Welcome Wagon Host/Hostess Relationship Specialty Start Date End Date Kvng Linton MD [address] [place] [address] PCP - General Internal Medicine 11/27/22 Kvng Linton MD [address] [place] [address] PCP - Rashid GALVEZ 07/22/23 Welcome Wagon Host/Hostess Relationship Specialty Start Date End Date Kvng Linton MD [address] [place] [address] PCP - General Internal Medicine 11/27/22 Kvng Linton MD [address] [place] [address] PCP - Rashid GALVEZ 07/22/23 Welcome Wagon Host/Hostess Relationship Specialty Start Date End Date Kvng Linton MD [address] [place] [address] PCP - General Internal Medicine 11/27/22 Kvng Linton MD [address] [place] [address] PCP - Rashid GALVEZ 07/22/23Saturday, MELISSA Boles [address] [place] [address] Licensed Practical Nurse Family Medicine 02/26/24 Welcome Wagon Host/Hostess Relationship Specialty Start Date End Date Kvng Linton MD [address] [place] [address] PCP - General Internal Medicine 11/27/22 Kvng Linton MD [address] [place] [address] PCP - Rashid GALVEZ 07/22/23Saturday, Elvi, AUTOMOBILE LEASING SUPERVISOR [address] [place] [address] Licensed Practical Nurse Family Medicine 02/26/24 Welcome Wagon Host/Hostess Relationship Specialty Start Date End Date Kvng Linton MD [address] [place] [address] PCP - General Internal Medicine 11/27/22 Kvng Linton MD [address] [place] [address] PCP - Rashid GALVEZ 07/22/23Saturday, Elvi, AUTOMOBILE LEASING SUPERVISOR [address] [place] [address] Licensed Practical Nurse Family Medicine 02/26/24 Welcome Wagon Host/Hostess Relationship Specialty Start Date End Date Kvng Linton MD [address] [place] [address] PCP - General Internal Medicine 11/27/22 Kvng Linton MD [address] [place] [address] PCP Gay Mike MA 07/22/23Saturday, Elvi, AUTOMOBILE LEASING SUPERVISOR [address] [place] [address] Licensed Practical Nurse Family Medicine 02/26/24 Welcome Wagon Host/Hostess Relationship Specialty Start Date End Date Kvng Linton MD [address] [place] [address] PCP - General Internal Medicine 11/27/22SatRowdyElvi byrd LPN [address] [place] [address] Licensed Practical Nurse Family Medicine 02/26/24 08/28/24 Heydi Parker, RN Licensed Practical Nurse Family Medicine 08/28/24 Welcome Wagon Host/Hostess Relationship Specialty Start Date End Date Kvng Linton MD [address] [place] [address] PCP - General Internal Medicine 11/27/22 Heydi Parker, RN Licensed Practical Nurse Family Medicine 08/28/24 Welcome Wagon Host/Hostess Relationship Specialty Start Date End Date Kvng Linton MD [address] [place] [address] PCP - General Internal Medicine 11/27/22 Kvng Linton MD [address] [place] [address] PCP - Rashid GALVEZ 07/22/23 Reina Palma LPN 10/06/24 Welcome Wagon Host/Hostess Relationship Specialty Start Date End Date Kvng Linton MD [address] [place] [address] PCP - General Internal Medicine 11/27/22 Kvng Linton MD [address] [place] [address] PCP - Rashid GALVEZ 07/22/23 Reina Palma LPN 10/06/24 Welcome Wagon Host/Hostess Relationship Specialty Start Date End Date Kvng Linton MD [address] [place] [address] PCP - General Internal Medicine 11/27/22 Kvng Linton MD [address] [place] [address] PCP - Rashid MA 07/22/23 Reina Palma LPN 10/06/24 Welcome Wagon Host/Hostess Relationship Specialty Start Date End Date Kvng Linton MD [address] [place] [address] PCP - General Internal Medicine 11/27/22 Kvng Linton MD [address] [place] [address] PCP - Rashid GALVEZ 07/22/23 Reina Palma LPN 10/06/24 Welcome Wagon Host/Hostess Relationship Specialty Start Date End Date Kvng Linton MD [address] [place] [address] PCP - General Internal Medicine 11/27/22 Kvng Linton MD [address] [place] [address] PCP - Rashid MA 07/22/23 Reina Palma LPN [address] [place] [address] 10/06/24 Welcome Wagon Host/Hostess Relationship Specialty Start Date End Date Kvng Linton MD [address] [place] [address] PCP - General Internal Medicine 11/27/22 Kvng Linton MD [address] [place] [address] PCP - Rashid GALVEZ 07/22/23 Reina Palma LPN [address] [place] [address] 10/06/24 Welcome Wagon Host/Hostess Relationship Specialty Start Date End Date Kvng Linton MD [address] [place] [address] PCP - General Internal Medicine 11/27/22 Kvng Linton MD [address] [place] [address] PCP - Rashid GALVEZ 07/22/23 Reina Palma LPN [address] [place] [address] 10/06/24 Welcome Wagon Host/Hostess Relationship Specialty Start Date End Date Kvgn Linton MD [address] [place] [address] PCP - General Internal Medicine 11/27/22 Kvng Linton MD [address] [place] [address] PCP - Rashid GALVEZ 07/22/23 Reina Palma LPN [address] [place] [address] 10/06/24 Welcome Wagon Host/Hostess Relationship Specialty Start Date End Date Kvng Linton MD [address] [place] [address] PCP - General Internal Medicine 11/27/22 Kvng Linton MD [address] [facility] [address] [place] [address] PCP - Rashid GALVEZ 07/22/23 Reina Palma LPN [address] [facility] [address] [place] [address] 10/06/24 Welcome Wagon Host/Hostess Relationship Specialty Start Date End Date Kvng Linton MD [address] [facility] [address] [place] [address] PCP - General Internal Medicine 11/27/22 Kvng Linton MD [address] [facility] [address] [place] [address] PCP - Rashid GALVEZ 07/22/23 Reina Palma LPN [address] [facility] [address] [place] [address] 10/06/24 Reason for Visit (unrecogniz ed section [...] ON THE PRIMARY CLINICAL RECORDS. [facility]. provides no warranty or guarantee of the accuracy or completeness of information in this document.
== END 2025-04-28 10:56 | disposition home or self-care (01) ==
LOC: WC 10:55
PROVIDERS: PCP Internal Medicine; Visit Provider Physician Assistant
DX: L97.415 Non-pressure chronic ulcer of right heel and midfoot with muscle involvement without evidence of necrosis (principal)
CPT/HCPCS: 11043

== ENCOUNTER 2025-05-19 10:15 | Outpatient (OUT) | payer MEDICARE, SELFPAY ==
--- OUTSIDE RECORDS SUMMARY | 2025-05-19 10:18 | XMS_ITS | Clinical Summary ---
Author Organization [facility] Address [address] [place] [address] Care Team Providers Care Recreational Resort Manager Name Role Phone Kvng Linton MD Primary Care Provider [phone] Kvng Linton MD Unavailable [phone] Reina Palma LPN Unavailable Allergies Active AllergyReactionsCriticalityNoted DateCommentsAmoxicillin-Pot Clavulanate Nausea Only03/12/2023Sulfa Npvzgzivdiy89/22/2023 Other Reaction(s): itching Medications MedicationSigDispense QuantityRefillsLast FilledStart DateEnd DateStatus Multiple Vitamin (Multi-Vitamin) tablet Take 1 tablet by mouth in the morning.Active atorvastatin (Lipitor) 10 MG tablet Indications:DyslipidemiaTake 1 tablet (10 mg) by mouth in the morning. 100 tablet 4Active Additional Information Patient not taking.Reported on 07/30/2024 cholecalciferol (Vitamin D-3) 50 MCG (1999) tablet Take 1,000 Units by mouth in the morning.Active aspirin 81 MG EC tablet Take 81 mg by mouth DailyActive rOPINIRole (Requip) 0.5 MG tablet Indications:Restless Leg SyndromeTake 2 tablets (1 mg) by mouth in the morning and 2 tablets (1 mg) before bedtime. 360 tablet 5Active olmesartan-hydroCHLOROthiazide (BENIcar HCT) 20-12.5 MG tablet Indications:Essential (primary) hypertensionTake 1 tablet by mouth Daily 5Active meloxicam (Mobic) 15 MG tablet Indications:Inflammatory and toxic neuropathy (HCC),Neurogenic painTake 1 tablet (15 mg) by mouth Daily Take with food 90 tablet 5Active cloNIDine (Catapres) 0.1 MG tablet Indications:Essential (primary) hypertensionTAKE 1 TABLET BY MOUTH EVERY 8 HOURS IF NEEDED FOR HIGH BLOOD PRESSURE FOR 170 OR GREATER 30 tablet 5Active Additional Information Patient not taking.Reported on 02/23/2025 gabapentin (Neurontin) 600 MG tablet Indications:NeuralgiaTABLET 1/2 TABLET BY MOUTH TWICE A DAY AND TAKE 1 TABLET BY MOUTH EVERY DAY AT BEDTIME 180 tablet 5Active mupirocin (Bactroban) 2 % ointment Indications:Epidermal inclusion cystApply to affected area (abdomen) with dressing changes, 30 day supply 22 g 5Active Active Problems ProblemNoted DateDiagnosed DateAtrophy of nail02/23/20255857Qopab38/05/2025 Tazqxlklaffxinokmcae19/05/2025Transient ischemic dwlakw3102/23/2025Vitamin D zbtcfcpjvy31/09/2025History of fxxmup2507/30/2024Racing heart beat10/22/2023 Chronic idiopathic upicfspuaefx00/02/2024bnormal blood iawidgitp74/22/2023 Kdvwxjy9103/12/2023ervical paraspinal muscle spasm03/12/2023harcot's joint, right ankle and foot03/12/2023ecreased estrogen level03/12/2023Equinus contracture of right ankle03/12/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 syndrome of right /22/2023Inflammatory and toxic whoujilotj30/22/2023Laryngopharyngeal vxwsxv6603/12/2023Left sided sciatica 03/12/2023Lumbago with sciatica, left side03/12/2023Lumbar degenerative disc plctwpr3403/12/2023Lumbar paraspinal muscle spasm03/12/2023Muscular atrophy 03/12/2023Neural foraminal stenosis of lumbar spine03/12/2023Neurogenic pain 03/12/2023Osteoarthritis of spine with radiculopathy, lumbar axlnir0503/12/2023 Voohzvcheqgak53/22/2023Osteopenia of multiple sites03/12/2023Other chronic pain 03/12/2023Other hammer toe(s) (acquired), right foot03/12/2023haryngoesophageal /22/2023lenohumeral /22/2023rimary localized osteoarthrosis of ankle and foot03/12/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 03/12/2023rimary osteoarthritis, right egrxrcko95/22/2023Rheumatoid factor xoevoqct82/22/2023Restless legs syndrome (RLS)03/12/2023Essential (primary) krysjurikvfw56/19/2023Lumbar zjddlobh40/16/2022isorder of svqpcx1911/30/2020 Lumbar uutxpbovoql57/12/5982Imwcjscjxquy43/01/2010 Resolved Problems ProblemNoted DateDiagnosed DateResolved DateOther acute osteomyelitis, right ankle and foot/5Actinic rlsxyhelx39/4Charcot's ryfseddfsnd84/22/202307/Non-pressure chronic ulcer of other part of right foot with fat layer seneuol61/ost-traumatic osteoarthritis, right jvvghexg25/11/2024Piriformis syndrome of right side10/31/2021 02/23/2025Primary localized fckyclbbwcpikq59 Encounters DateTypeDepartmentCare TawcJjtaxpzdwpc84/14/2025Patient Outreach [facility] [address] [place] [address] Reina Palma LPN 03/16/2025 3:30 PM EDTOffice Visit [facility] [address] [place] [address] Katlin Triplett MD Encounter for removal of jfvyvei1303/16/2025amboo flowsheet [facility] [address] [place] [address] Katlin Triplett MD 03/16/20251699Wjyrok26/18/2025[facility] [address] [place] [address] Reina Palma LPN 03/05/2025Results Follow-Up [facility] [address] [place] [address] Katlin Triplett MD Dermatopathology exam03/04/2025[facility] [address] [place] [address] Reina Palma LPN 03/02/2025 3:15 PM EDTOffice Visit [facility] [address] [place] [address] Katlin Triplett MD Epidermal inclusion cyst (Primary Dx); Pain03/02/2025amboo flowsheet [facility] [address] [place] [address] Katlin Triplett MD 03/02/20254340Ujkuan95/07/2025bstract [facility] [address] [facility] [address] [place] [address] Kvng Linton MD 02/23/2025 10:00 AM EDTOffice Visit [facility] [address] [facility] [address] [place] [address] Nicky Riddle PA Medicare annual wellness visit, [...] back pain with left-sided sciatica; Left sided zvfqawej42/05/2025amboo flowsheet [facility] [address] [facility] [address] [place] [address] Nicky Riddle PA 02/23/2025Travelfrom Last 3 Months Immunizations ImmunizationAdministration DatesNext DueInfluenza, High Dose Seasonal, Preservative Free05/03/2021,04/05/2020,07/02/2019Influenza, High-dose Seasonal, Quadrivalent, Preservative Free07/05/2022,04/12/2020Influenza, injectable, MDCK, preservative free, kuvuczreksqn55/15/2018Influenza, injectable, quadrivalent 04/23/2016Influenza, seasonal, intradermal, preservative free04/23/2018 Pneumococcal Conjugate PCV 13004/12/2020Pneumococcal Polysaccharide PPSV23 04/05/2020,11/16/2013Tdap01/21/2012 Family History Medical HistoryRelationNameCommentsHeart diseaseFatherBernardCancerMotherIrene RelationNameStatusCommentsFatherBernardDeceasedMotherIreneDeceased Social History Tobacco UseTypesPacks/DayYears UsedDateSmoking Tobacco: FormerCigarettes0.527 07/30/1965 - 07/22/1992Smokeless Tobacco: Never Tobacco Cessation:Counseling Given: Yes Alcohol UseStandard Drinks/WeekCommentsNever0 (1 standard drink = 0.6 oz pure alcohol)caffeine intake: more than 4 cups per day.B1300 Health LiteracyAnswer Date RecordedHow often do you need to have someone help you when you read instructions, pamphlets, or other written material from your doctor or pharmacy? Never03/05/2024Social Connection and Isolation PanelAnswerDate RecordedFrequency of Communication with Friends and FamilyNot on file03/05/2024Frequency of Social Gatherings with Friends and FamilyNot on file03/05/2024ttends Jew ServicesNot on file03/05/2024ctive Member of Clubs or OrganizationsNot on file 03/05/2024ttends Club or Organization MeetingsNot on file03/05/2024re you , , , , never , or living with a partner? Ybhzpoh5303/05/2024UDIT-CAnswerDate RecordedQ1: How often do you have a drink containing alcohol?Never03/05/2024Q2: How many drinks containing alcohol do you have on a typical day when you are drinking?Patient does not drink03/05/2024Q3: How often do you have six or more drinks on one occasion?Never03/05/2024Overall Financial Resource Strain (CARDIA)AnswerDate RecordedHow hard is it for you to pay for the very basics like food, housing, medical care, and heating?Very hard 03/05/2024HQ-2AnswerDate RecordedPatient Health Questionnaire-2 Score0 02/23/2025Fin[facility] [place] [facility] - Occupational Stress QuestionnaireAnswerDate RecordedDo you feel stress - tense, restless, nervous, or anxious, or unable to sleep at night because yourmind is troubled all the time - these days?Only a bertbe2803/05/2024Exercise Vital SignAnswerDate Recorded On average, how many days per week do you engage in moderate to strenuous exercise (like a brisk walk)?Patient bhzjujzh33/10/2024On average, how many minutes do you engage in exercise at this level?Patient igeeoijv14/10/2024Hunger Vital SignAnswerDate RecordedWithin the past 12 months, you worried that your food would run out before you got the money to buymore.Never true03/05/2024 Within the past 12 months, the food you bought just didn't last and you didn't have money to get more.Never true03/05/2024RAPARE - TransportationAnswerDate RecordedIn the past 12 months, has lack of transportation kept you from medical appointments or from getting medications?No03/05/2024In the past 12 months, has lack of transportation kept you from meetings, work, or from getting things needed for daily living?No03/05/2024Housing Stability Vital SignAnswerDate RecordedIn the last 12 months, was there a time when you were not able to pay the mortgage or rent on time?No10/30/2023In the last 12 months, how many places have you lived?In the last 12 months, was there a time when you did not have a steady place to sleep or slept in ashelter (including now)?No 10/30/2023Housing Stability Vital SignAnswerDate RecordedIn the last 12 months, was there a time when you were not able to pay the mortgage or rent on time?No 03/05/2024In the past 12 months, how many times have you moved where you were living?t any time in the past 12 months, were you homeless or living in a long term (including now)?No03/05/2024CommentsUnknownSex and Gender InformationValueDate RecordedSex Assigned at BirthNot on fileLegal SexFemale 10/03/2022 7:12 PM EDTGender IdentityNot on fileSexual OrientationNot on file Last Filed Vital Signs Vital SignReadingTime TakenCommentsBlood Qbbtqrqg960/8208 10:11 AM EDT Jpsqt720202/23/2025 10:11 AM QPFLlqfgtmhabd98.2 ??C (98.9 ??F)01/09/2024 1:23 PM EDTRespiratory Ryso915502/23/2025 10:11 AM EDTOxygen Flftqkbefu55%02/23/2025 10:11 AM EDTInhaled Oxygen Concentration--Vexlee28.1 kg (145 lb 12.8 oz)02/23/2025 10:11 AM MOOWqgfoz187.3 cm (5' 11 )02/23/2025 10:11 AM EDTBody Mass Index20.33 02/23/2025 10:11 AM EDT Plan of Treatment Health MaintenanceDue DateLast DoneCommentsInfluenza Vaccine (#1)03/22/2025 07/05/2022, 05/03/2021, 04/12/2020, Additional history existsMedicare Annual Wellness (AWV)6002/23/2025, 02/06/2024, 05/07/2022, Additional history existsPneumococcal Vaccine: 65+ SytnyQdhhcodrs51/22/2020, 04/05/2020, 11/16/2013 FIT-SUTTmoeuxtvfhqp02/20/2022, 04/10/2022, 02/24/2019, Additional history exists SzkbrdjcuCdfyfsihbflk67/20/2023, 04/09/2023, 08/18/2021, Additional history existsCT YlhfwzvkmzujQdlealiqajqe81/28/2024, 4ColonoscopyDiscontinued 03/13/2024, 03/13/2024, 12/19/2023, Additional history existsColorectal Cancer ScreeningDiscontinuedFITDiscontinuedFOBTDiscontinuedSigmoidoscopyDiscontinued Procedures Procedure NamePriorityDate/TimeAssociated DiagnosisCommentsSKIN REPAIRRoutine 03/02/2025 3:54 PM EDT Epidermal inclusion cyst SKIN GEQSZDFOZfruiry01/12/2025 3:54 PM EDT Epidermal inclusion cyst DERMATOPATHOLOGY BMEZRyfiubb33/12/2025 12:00 AM EDT Epidermal inclusion cyst MM TOMOSYNTHESIS SCREENING BI04/10/2023 2:57 PM EDT LAB COLOGUARD?? COLON CANCER IZNLKXXswwjnq16/20/2022 from Last 3 Months or Most Recently Relevant to Health Maintenance Results * Skin repair (03/02/2025 3:54 PM EDT) Narrative Nita Sanders MA - 03/02/2025 3:54 PM EDT Complexity: Intermediate Final length (cm): ??2.3 Reason for type of repair: allow closure of the large defect ?? Undermining: edges undermined ?? Undermining comment: ??The surrounding tissue was undermined until the skin edges could be approximated without undue tension. Any tissue redundancies were removed. Subcutaneous layers (deep stitches): Suture size: ??3-0 Suture type comment: ??Biosyn Stitches: ??Buried horizontal mattress (Closure was performed in a layered fashion with subcutaneous tissue closed first using tension-bearing absorbable sutures to the level of the superficial fascia.) Fine/surface layer approximation (top stitches): Suture size: ??4-0 Suture type: Prolene (polypropylene) ?? Stitches: simple running ?? Stitches comment: ??Epicuticular skin sutures were then placed with minimal tension. Suture removal (days): ??14 Outcome: patient tolerated procedure well with no complications ?? Post-procedure details: sterile dressing applied and wound care instructions given ?? Post-procedure details comment: ??It was emphasized to the patient to contact the office for any signs of infection, uncontrollable bleeding, or complications. Dressing type: bandage ?? Authorizing ProviderResult TypeResult StatusCoemma Triplett [facility] PROCEDURE ORDERABLESFinal Result * Skin excision (03/02/2025 3:54 PM EDT) Nita Escobedo MA - 03/02/2025 3:54 PM EDT Lesion length (cm): 2.3 Lesion width (cm): ??2 Margin per side (cm): ??0 Total excision diameter (cm): ??2.3 Informed consent: discussed and consent obtained ?? Informed consent comment: ??Risks and possible complications were discussed as noted on the consent form. The consent form was signed prior to the procedure. Timeout: patient name, date of , surgical site, and procedure verified ?? Timeout comment: ??Patient and provider identified site. Site was marked and excision was drawn out. Photo was taken and shown to patient, patient verified this is the correct site. Procedure prep: ??Patient was prepped and draped in usual sterile fashion (The planned incision lines were drawn along relaxed skin tension lines, if possible, to minimize scarring and deformity of surrounding structures.) Prep type: ??Chlorhexidine Anesthesia: the lesion was anesthetized in a standard fashion ?? Anesthesia comment: ??The local anesthetic was injected to create a field block at the site of the procedure. Anesthetic: ??1% lidocaine w/ epinephrine 1-100,000 buffered w/ 8.4% NaHCO3 Instrument used: #15 blade ?? Instrument used comment: ??Incisions were made as drawn, and the surrounding tissue was undermined until the skin edges could be approximated without undue tension. Any tissue redundancies were removed. Hemostasis achieved with: electrodesiccation ?? Additional details: ??Amount of lidocaine used: 6.0 ml Estimated blood loss: <1.0 ml Authorizing ProviderResult TypeResult StatusCoemma Triplett [facility] PROCEDURE ORDERABLESFinal Result * Dermatopathology exam (03/02/2025 12:00 AM EDT)ComponentValueRef RangeTest MethodAnalysis TimePerformed AtPathologist SignatureSPECIMEN TYPE SPECIMEN: LEFT ABDOMEN (SIDE) - UPPER [facility] ICD10 CodeL72.9AURORA DIAGNOSTICSPROTOCOLEXC - EXCISIONAURORA DIAGNOSTICSFinal DiagnosisEPIDERMAL INCLUSION CYST, INFLAMED, EXCISED.[facility] DIAGNOSTICSGross Text 2 rep sec subm [facility]AGNOSTICSMicroscopic DescriptionMicroscopic examination performed. [facility] OSLTYFJQHVYCAP27916*1[facility]A DIAGNOSTICSSpecimen (Source)Anatomical Location / LateralityCollection Method / VolumeCollection TimeReceived TimeSkin Topography unknown / Wcvcqgj2903/02/2025 3:54 PM EDTComment:Differential Diagnosis: EIC Check Margins: No Size of lesion: 2.3 x 2.0 cm Diagnosis: (L72.0) Epidermal inclusion cyst Narrative Authorizing ProviderResult TypeResult StatusKatlin Triplett MDSAINT JOSEPH [facility] PATHOLOGY ORDERABLESFinal ResultPerforming OrganizationAddressCity/State/ZIP CodePhone Number [facility] * MM TOMOSYNTHESIS SCREENING BI (04/10/2023 2:57 PM EDT)Anatomical Region LateralityModalityOtherSpecimen (Source)Anatomical Location / Laterality Collection Method / VolumeCollection TimeReceived Time04/10/2023 2:57 PM EDT Narrative 04/10/2023 2:57 PM EDT [facility] ?[address] ? [place] [address] ? Mammography Report ? Signed ? Patient: BERENICE SILVA E ?MR#: [id number] ?? : 1945 ?Acct:[id number] ?? Age/Sex: 77 / F ?ADM Date: 04/09/23 ?? Loc: MAMMO ? Attending Dr: KVNG LINTON ? Ordering Physician: KVNG LINTON ? Results: ? Date of Service: 04/09/23 ?Follow Up: ? Procedure(s): MM tomosynthesis screening BI ?? Accession Number(s): [id number] ? cc: KVNG LINTON ? Patient: ? SHIRA, BERENICE E. ? Exam Date: ? 04/09/2023 ?? : ? 1945 ?Gender:F ? Ordering : ? DR KVNG LINTON M.Geri ? Admission #: ? [id number] ?? Family : ?Order #: ? [id number] ? CLICK HERE TO VIEW EXAM ? RADIOLOGY REPORT ? PROCEDURE: ? MM TOMOSYNTHESIS SCREENING BI ? COMPARISON: ? MG MAMM SCREEN 3D MARCO A CAD, 08/18/2021. ??MG MAMM SCREEN MARCO A W ?? CAD, 03/25/2020. ??MG MAMM SCREEN MARCO A W CAD, 11/07/2018. ??MG MAMM MARCO A DIAG W CAD ?? DIG, 11/04/2014. ? INDICATIONS: ? Z12.31 ? Calculator Name ? NCI Breast Cancer Risk Assessment Tool ?? 5 Year Breast Cancer Risk ? 3.30% ?? Lifetime Breast Cancer Risk ? 7.00% ?? Personal Breast Cancer ?No ?? Personal Ovarian Cancer ? No ?? Treatments ? None ?? Family Cancers ? Mother with breast cancer at age ??47; Cousin-maternal ?? with ovarian cancer at age 50. ? LOCATION: ? [facility] ? BREAST COMPOSITION: ? Scattered areas fibroglandular density. ? FINDINGS: ? DIAGNOSTIC CATEGORY 2--BENIGN FINDING: ? RIGHT BREAST: ??No significant suspicious finding. ??Scattered benign-appearing ?? lymph nodes are present. ??No significant change has occurred. ? LEFT BREAST: ??No significant suspicious finding. ??Scattered benign-appearing ?? calcifications are present. ??Scattered benign-appearing nodules are present. ? No significant change has occurred. ? RECOMMENDATIONS: ? ROUTINE MAMMOGRAM AND CLINICAL EVALUATION IN 12 MONTHS. ? PLEASE NOTE: ??A NORMAL MAMMOGRAM DOES NOT EXCLUDE THE POSSIBILITY OF BREAST ?? CANCER. ??A CLINICALLY SUSPICIOUS PALPABLE LUMP SHOULD BE BIOPSIED. ? Dictated by: Tariq Levin M.D. on 04/10/2023 at 14:54 ? Approved by: Tariq Levin M.D. on 04/10/2023 at 14:56 ? Dictated By: ?Tariq Levin M.D. ? Signed By: ?04/10/23 145 ? DD/ 56 ? TD/TT: ? Clinical Data Programmer: Procedure Note Radiology, Radiologist, MD - 04/12/[address] [address] Mammography Report Signed Patient: BERENICE SILVA EMR#: [id number] : 8Acct:[id number] Age/Sex: 77 / FADM Date: 04/09/23 Loc: MAMMO Attending Dr: KVNG LINTON Ordering Physician: Marge LINTONults: Date of Service: 04/09/23Follow Up: Procedure(s): MM tomosynthesis screening BI Accession Number(s): [id number] cc: KVNG LINTON Patient: BERENICE SILVA Exam Date: 04/09/2023 : 1945 Gender:F Ordering : DR KVNG LINTON M.D. Admission #: [id number] Family : Order #: [id number] CLICK HERE TO VIEW EXAM RADIOLOGY REPORT [...] ovarian cancer at age 52. LOCATION: [facility] BREAST COMPOSITION: Scattered areas fibroglandular [...] 14:56 Dictated By: Tariq Levin M.D. Signed By:04/10/231457 DD/ 56 TD/TT: Clinical Data Programmer: Authorizing ProviderResult TypeResult StatusDanichong Linton MDCLINISYNC IMAGING Final Result * Cologuard?? colon cancer screening (04/10/2022)ComponentValueRef RangeTest MethodAnalysis TimePerformed AtPathologist SignatureCOLOGUARD RESULT REPORTABLENegativeNegativeNOMS LEGACY EXTERNAL LABComment: NEGATIVE TEST RESULT. A negative Cologuard result indicates a low likelihood that a colorectal cancer (CRC) or advanced adenoma (adenomatous polyps with more advanced pre-malignant features) ??is present. The chance that a person with a negative Cologuard test has a colorectal cancer is less than 1in 1500 (negative predictive value >99.9%) or has an advanced adenoma is less than 5.3% (negative predictive value 94.7%). These data are based on a prospective cross-sectional study of 10,000individuals at average risk for colorectal cancer who were screened with both Cologuard and colonoscopy. (Luc Reardon al, N Engl J Med 2014;370(14):3771-8637) The normal value (reference range) for this assay is negative. COLOGUARD RE-SCREENING RECOMMENDATION: Periodic colorectal cancer screening is an important part ofpreventive healthcare for asymptomatic individuals at average risk for colorectal cancer. ??Following a negative Cologuard result, the [place] Cancer Society and U.S. Multi-Society Task Force screening guidelines recommend a Cologuard re-screening interval of 3 years. References: [place] [employer] Society Guideline for Colorectal Cancer Screening: https://www.cancer.or g/cancer/govrk-slkzdr-icozum/lljvtmbiy-nxwchjgms-kdvyxlc/acs-recommendations.htm chase; Dave GALEAS, Jacobo ABRAHAM, Nika LeijaK, Colorectal Cancer Screening: Recommendations for Physicians and Patients from the U.S. Multi-Society Task Force on Colorectal Cancer Screening , Am J Gastroenterology 2017; 112:1388-0205. TEST DESCRIPTION: Composite algorithmic analysis of stool DNA-biomarkers with hemoglobin immunoassay. ?? Quantitative values of individual biomarkers are not reportable and are not associated with individual biomarker result reference ranges. Cologuard is intended for colorectal cancer screening ofadults of either sex, 45 years or older, [...] (Luc Reardon al, N Engl J Med 2014;370(14):1165-4904.) Cologuard may produce a false negative or false positive result (no colorectal cancer or precancerous polyp present at colonoscopy follow up). A negative Cologuard test result does not guarantee the absence of CRC or advanced adenoma (pre-cancer). The current Cologuard screening interval is every 3 years. ([place] Cancer Society and U.S. Multi-Society Task Force). Cologuard performance data in a 10,000 patient pivotal study using colonoscopy as the reference method can be accessed at the following location: www.[employer].com/results. Additional description of the Cologuard test process, warnings and precautions can be found at www.cologuard.com. Specimen (Source)Anatomical Location / LateralityCollection Method / Volume Collection TimeReceived Time04/10/2022 Narrative Authorizing ProviderResult TypeResult StatusDajuancarlos [facility] ORDERABLESFinal ResultPerforming OrganizationAddressCity/State/ZIP CodePhone Number [facility] from Last 3 Months or Most Recently Relevant to Health Maintenance Insurance * Guarantor: Berenice Silva EAccount TypeRelation to PatientDate of BirthPhone Billing AddressPersonal/AgnlbbTenj[birth year][address] [address] Care Teams Team MemberRelationshipSpecialtyStart DateEnd Date Kvng Linton MD [address] [facility] [address] [place] [address] PCP - GeneralInternal Medicine11/27/22 Kvng Linton MD [address] [facility] [address] [place] [address] PCP - Rashid [place]07/22/23 Reina Palma LPN [address] [facility] [address] [place] [address] 10/06/24
--- OUTSIDE RECORDS SUMMARY | 2025-05-19 10:18 | XMS_ITS | Clinical Summary ---
Author Organization [employer] [facility] tem Address [id number] [address] [place] [address] Care Team Providers Care Quantitative Associate Name Role Phone Kvng Linton MD Primary Care Provider [phone] Allergies Active AllergyReactionsCriticalityNoted DateCommentsAmoxicillin-Pot Clavulanate 04/03/2021 Other reaction(s): nausea Sulfa (Sulfonamide Antibiotics)02/07/2022 Other reaction(s): itching Medications MedicationSigDispense QuantityRefillsLast FilledStart DateEnd DateStatus atorvastatin (LIPITOR) 10 mg tablet Take 1 tablet (10 mg total) by mouth in the morning.09/22/2020ctive gabapentin (NEURONTIN) 600 mg tablet Take 1 tablet (600 mg total) by mouth 3 (three) times a day. 600 mg morning, afternoon, 300mg jlutbkn6010/24/2020ctive meloxicam (MOBIC) 15 mg tablet Take 1 tablet (15 mg total) by mouth in the morning.09/04/2020ctive rOPINIRole (REQUIP) 0.5 mg tablet Take 2 tablets (1 mg total) by mouth in the morning and 2 tablets (1 mg total) before bedtime.09/09/2020ctive traMADoL (ULTRAM) 50 mg tablet Take 1 tablet (50 mg total) by mouth daily as needed.11/16/2020ctive multivitamin (THERAGRAN) tablet Take 1 tablet by mouth in the morning.Active losartan-hydroCHLOROthiazide (HYZAAR) 50-12.5 mg per tablet Take 1 tablet by mouth in the morning.09/06/2023ctive UNABLE TO FIND Take 1 tablet by mouth in the morning. Jeni duran.Active UNABLE TO FIND Take 1 tablet by mouth in the morning. Turmeric Curcumin 500 mg.Active calcium carbonate/vitamin D3 (CALTRATE WITH VITAMIN D3 ORAL) Take 1 tablet by mouth in the morning.Active cholecalciferol, vitamin D3, 2,000 units tablet Take 0.5 tablets (1,000 Units total) by mouth in the morning.Active ascorbic acid, vitamin C, (VITAMIN C) 250 mg tablet Take 1 tablet (250 mg total) by mouth in the morning.Active Active Problems ProblemNoted DateDiagnosed DatePiriformis syndrome of right side10/31/2021Lumbar xhttgfun32/16/2022Lumbar glnlhlihtyd27/12/2021isorder of fsizpc2911/30/2020 Family History Medical HistoryRelationNameCommentsNo Known ProblemsFatherCancerMotherstarted Breast cancer then to bone and brainRelationNameStatusCommentsFatherDeceased MotherDeceased Social History Tobacco UseTypesPacks/DayYears UsedDateSmoking Tobacco: FormerCigarettes Smokeless Tobacco: Never Tobacco Cessation:Counseling Given: Not Answered Alcohol UseStandard Drinks/WeekCommentsNot Currently0 (1 standard drink = 0.6 oz pure alcohol)ChildcareAnswerDate MlfdqsjaUcvzmmdmzDzbmtsc27/12/2019Employment AnswerDate EyrygxmiQtkizpncdeNugmsmc23/12/2019Hunger ScreeningAnswerDate RecordedWithin the past 12 months we worried whether our food would run out before we got money to buy more.Never True02/12/2024Food Insecurity - Inability Not on file02/12/2024CommentsNoSex and Gender InformationValueDate RecordedSex Assigned at BirthNot on fileLegal GbmAswqkq81/06/2015 11:37 AM EDT Gender IdentityNot on fileSexual OrientationNot on file Last Filed Vital Signs Vital SignReadingTime TakenCommentsBlood Tohnltej441/7008 9:05 AM EDT Dgjcb337503/13/2024 9:05 AM MTZSiuoctcileg21.5 ??C (97.7 ??F)03/13/2024 6:44 AM EDTRespiratory Rnab0538 9:05 AM EDTOxygen Riawekurfn60%03/13/2024 9:05 AM EDTInhaled Oxygen Concentration--Fuydge53 kg (136 lb 11 oz)03/13/2024 6:44 AM DHVDjlxve909 cm (5' 10.87 )03/13/2024 6:44 AM EDTBody Mass Index19.14003/13/2024 6:44 AM EDT Plan of Treatment Health MaintenanceDue DateLast DoneCommentsDepression Hergjlftd86/03/1960Zoster (Shingles) Vaccine (1 of 2)11/21/1997Fall Risk Cohsodgzf90/03/2013DTaP,Tdap and Td Vaccines (2 - Td or Tdap)/08/2011Tobacco Axagpbtag22/23/2025 03/13/2024OVID-19 Vaccine ( season)501/, 10/07/2020, 09/16/2020Influenza Bdtkaqo90/01/66523109/05/2021, 05/03/2021, 04/12/2020, Additional history exists Medical Devices ImplantedTypeAreaManufacturerDevice IdentifierShelf Expiration DateModel / Serial / LotOrthopedic ImplantOrthopedic ImplantRight: Foot Insurance Care Teams Team MemberRelationshipSpecialtyStart DateEnd Kvng Linton MD [address] [facility] [address] [place] [address] [facility]11/30/20
== END 2025-05-19 10:16 | disposition home or self-care (01) ==
LOC: WC 10:16
PROVIDERS: PCP Internal Medicine; Visit Provider Podiatrist Foot & Ankle Surgery
DX: L97.415 Non-pressure chronic ulcer of right heel and midfoot with muscle involvement without evidence of necrosis (principal)
CPT/HCPCS: 11042

== ENCOUNTER 2025-06-14 15:08 | Outpatient (OUT) | payer MEDICARE, SELFPAY ==
--- OUTSIDE RECORDS SUMMARY | 2025-06-14 15:12 | XMS_ITS | Clinical Summary ---
Author Organization [facility] Address [address] [place] [address] Care Team Providers Care Chemical Engineering Teacher Name Role Phone Kvng Linton MD Primary Care Provider [phone] Kvng Linton MD Unavailable [phone] Reina Palma LPN Unavailable Allergies Active AllergyReactionsCriticalityNoted DateCommentsAmoxicillin-Pot Clavulanate Nausea Only03/12/2023Sulfa Icslkeosrrz08/22/2023 Other Reaction(s): itching Medications MedicationSigDispense QuantityRefillsLast FilledStart [...] (1 mg) before bedtime. 360 tablet 5Active meloxicam (Mobic) 15 MG tablet Indications:Inflammatory [...] changes, 30 day supply 22 g 5Active olmesartan-hydroCHLOROthiazide (BENIcar HCT) 20-12.5 MG tablet Indications:Essential (primary) hypertensionTake 1 tablet by mouth Daily 100 tablet 5Active traMADol (Ultram) 50 MG tablet Indications:Primary osteoarthritis, unspecified siteTake 1 tablet (50 mg) by mouth every 6 (six) hours if needed for severe pain 20 tablet 5Active olmesartan-hydroCHLOROthiazide (BENIcar HCT) 20-12.5 MG tablet Indications:Essential (primary) hypertensionTake 1 tablet by mouth Daily 5107/25/2024Discontinued(Reorder) traMADol (Ultram) 50 MG tablet Indications:Primary osteoarthritis, unspecified siteTake 1 tablet (50 mg) by mouth every 6 (six) hours if needed for severe pain for up to 10 days 40 tablet Discontinued Active Problems ProblemNoted DateDiagnosed DateAtrophy of nail02/23/20254703Qdbmj59/05/2025 Lokqsbzavmpjqofmishc36/05/2025Transient ischemic hovplu7002/23/2025Vitamin D oxxvzmlxlg70/09/2025History of wzvnwc1807/30/2024Racing heart beat10/22/2023 Chronic idiopathic llnqyksogquj57/02/2024bnormal blood kiseyulxw2023 Flswaii7803/12/2023ervical paraspinal muscle spasm03/12/2023harcot's joint, right ankle and foot03/12/2023ecreased estrogen level03/12/2023Equinus contracture of right ankle03/12/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 syndrome of right wgtncweg2023Inflammatory and toxic chqwqhzaat40/22/2023Laryngopharyngeal blznoa5103/12/2023Left sided sciatica 03/12/2023Lumbago with sciatica, left side03/12/2023Lumbar degenerative disc okkcwci9303/12/2023Lumbar paraspinal muscle spasm03/12/2023Muscular atrophy 03/12/2023Neural foraminal stenosis of lumbar spine03/12/2023Neurogenic pain 03/12/2023Osteoarthritis of spine with radiculopathy, lumbar lbzodf5403/12/2023 Lnrkqkysxtiso94/22/2023Osteopenia of multiple sites03/12/2023Other chronic pain 03/12/2023Other hammer toe(s) (acquired), right foot03/12/2023haryngoesophageal /22/2023lenohumeral ejbacctfk83/22/2023rimary localized osteoarthrosis of ankle and foot03/12/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 03/12/2023rimary osteoarthritis, right uqpoxnkl00/22/2023Rheumatoid factor jltbbfba05/22/2023Restless legs syndrome (RLS)03/12/2023Essential (primary) tqytombfswtf10/19/2023Lumbar /16/2022isorder of ecxjuq7911/30/2020 Lumbar waczuvlwikb69/12/8617Muvjbduhpipa29/01/2010 Resolved Problems ProblemNoted DateDiagnosed DateResolved DateOther acute osteomyelitis, right ankle and foot/5Actinic ogqowsyql58/harcot's bzhcuybrhhz68Non-pressure chronic ulcer of other part of right foot with fat layer wjzppax77ost-traumatic osteoarthritis, right zxoajike62/11/2024Piriformis syndrome of right side10/31/2021 02/23/2025Primary localized jjkyfycmjtdkfo26 Encounters DateTypeDepartmentCare AppvVmytlorqpta36/21/2836Rczymm88/15/2025Refill [facility] [address] [place] [address] [place] [phone] Nicky Riddle PA Primary osteoarthritis, unspecified site05/25/2025Refill [facility] [address] [place] [address] [place] [phone] Heydi Syed MA Essential (primary) ejularvyohte27/14/2025Patient Outreach [facility] [address] [place] [phone] Reina Palma LPN 03/16/2025 3:30 PM EDTOffice Visit [facility] [address] [place] [address] [place] [address] Katlin Triplett MD Encounter for removal of meyycpx5603/16/2025amboo flowsheet [facility] [address] [address] [place] [address] Katlin Triplett MD 03/16/2025Travelfrom Last 3 Months Immunizations ImmunizationAdministration DatesNext DueInfluenza, High Dose Seasonal, Preservative Free05/03/2021,04/05/2020,07/02/2019Influenza, High-dose Seasonal, Quadrivalent, Preservative Free07/05/2022,04/12/2020Influenza, injectable, MDCK, preservative free, vqyxwmgeenpg42/15/2018Influenza, injectable, quadrivalent 04/23/2016Influenza, seasonal, intradermal, preservative free04/23/2018 [...] Gatherings with Friends and FamilyNot on file03/05/2024ttends [facility] ServicesNot on file03/05/2024ctive Member of Clubs or OrganizationsNot on file 03/05/2024ttends Club or Organization MeetingsNot on file03/05/2024re you , , , , never , or living with a partner? Yuauyio1303/05/2024UDIT-CAnswerDate RecordedQ1: How often do you have a [...] heating?Very hard 03/05/2024HQ-2AnswerDate RecordedPatient Health Questionnaire-2 Score0 02/23/2025[facility] [place] [facility] Occup[facility] - Occupational Stress QuestionnaireAnswerDate RecordedDo you feel stress - tense, restless, nervous, or anxious, or unable to sleep at night because yourmind is troubled all the time - these days?Only a dvaima3103/05/2024Exercise Vital SignAnswerDate Recorded On average, how many days per week do you engage in moderate to strenuous exercise (like a brisk walk)?Patient /10/2024On average, how many minutes do you engage in exercise at this level?Patient qbrppiup96/10/2024Hunger Vital SignAnswerDate RecordedWithin the past 12 months, [...] steady place to sleep or slept in [facility] (including now)?No 10/30/2023Housing Stability Vital SignAnswerDate RecordedIn the last 12 months, was there a time when you were not able to pay the mortgage or rent on time?No 03/05/2024In the past 12 months, how many times have you moved where you were living?t any time in the past 12 months, were you homeless or living in a residential (including now)?No03/05/2024CommentsUnknownSex and Gender InformationValueDate RecordedSex Assigned at BirthNot on fileLegal SexFemale 10/03/2022 7:12 PM EDTGender IdentityNot on fileSexual OrientationNot on file Last Filed Vital Signs Vital SignReadingTime TakenCommentsBlood Ysnbmcik127/8202/23/2025 10:11 AM EDT Pelws1781 10:11 AM CKGEoskyybddog30.2 ??C (98.9 ??F)01/09/2024 1:23 PM EDTRespiratory Fnyq351802/23/2025 10:11 AM EDTOxygen Aflpluuvfh03%02/23/2025 10:11 AM EDTInhaled Oxygen Concentration--Wbapta11.1 kg (145 lb 12.8 oz)02/23/2025 10:11 AM ABHHiznpz573.3 cm (5' 11 )02/23/2025 10:11 AM EDTBody Mass Index20.33 02/23/2025 10:11 AM EDT Plan of Treatment DateTypeDepartmentCare Team (Latest Contact Info)Iarftnjonww00/26/2025 11:30 AM ESTOffice Visit [facility] [address] [facility] [address] [place] [phone] Nicky Riddle PA [address] [facility] [address] [place] [address] Health MaintenanceDue DateLast DoneCommentsCOVID-19 Vaccine ( season) 5008/09/2021, 10/07/2020, 09/16/2020Influenza Vaccine (#1)2025 07/05/2022, 05/03/2021, 04/12/2020, Additional history existsMedicare Annual Wellness (AWV)6002/23/2025, 02/06/2024, 05/07/2022, Additional history existsPneumococcal Vaccine: 65+ QhrvcPrvhokwsj16/22/2020, 04/05/2020, 11/16/2013 FIT-YBJXyabcotytecp35/20/2022, 04/10/2022, 02/24/2019, Additional history exists EzhkopnvvBhwaohlrindh51/20/2023, 04/09/2023, 08/18/2021, Additional history existsCT JjdhepbrsbovAwwbumhsmico72/28/2024, 4ColonoscopyDiscontinued 03/13/2024, 03/13/2024, 12/19/2023, Additional history existsColorectal Cancer ScreeningDiscontinuedFITDiscontinuedFOBTDiscontinuedSigmoidoscopyDiscontinued Procedures Procedure NamePriorityDate/TimeAssociated DiagnosisCommentsMM TOMOSYNTHESIS SCREENING BI04/10/2023 2:57 PM EDT LAB COLOGUARD?? COLON CANCER VYRNAVCmnxaul06/20/2022 from Last 3 Months or Most Recently Relevant to Health Maintenance Results * MM TOMOSYNTHESIS SCREENING BI (04/10/2023 2:57 PM EDT)Anatomical Region LateralityModalityOtherSpecimen (Source)Anatomical Location / Laterality Collection Method / VolumeCollection TimeReceived Time04/10/2023 2:57 PM EDT Narrative 04/10/2023 2:57 PM EDT [facility] ?[address] ? [place] [address] ? Mammography Report ? Signed ? Patient: BERENICE SILVA E ?MR#: [id number] ?? : 1945 ?Acct:[id number] ?? Age/Sex: 77 / F ?ADM Date: 04/09/23 ?? Loc: MAMMO ? Attending Dr: KVNG LINTON ? Ordering Physician: KVNG LINTON ? Results: ? Date of Service: 04/09/23 ?Follow Up: ? Procedure(s): MM tomosynthesis screening BI ?? Accession Number(s): [id number] ? cc: KVNG LINTON ? Patient: ? BERENICE SILVA ? Exam Date: ? 04/09/2023 ?? : ? 1945 ?Gender:F ? Ordering : ? DR KVNG LINTON M.D. ? Admission #: ? [id number] ?? Family : ?Order #: ? [id number] ? CLICK HERE TO VIEW EXAM ? [...] at age 52. ? LOCATION: ? [facility] ? BREAST COMPOSITION: ? Scattered areas fibroglandular [...] By: ?Tariq Levin M.D. ? Signed By: ?04/10/238 ? DD/ 56 ? TD/TT: ? Laser Engraver: Procedure Note Radiology, Radiologist, MD - 04/12/2023 [place] [address] Mammography Report Signed Patient: BERENICE SILVA EMR#: [id number] : 1945cct:[id number] Age/Sex: 77 / FADM Date: 04/09/23 Loc: MAMMO Attending Dr: KVNG LINTON Ordering Physician: Marge LINTONults: Date of Service: 04/09/23Follow Up: Procedure(s): MM tomosynthesis screening BI Accession Number(s): [id number] cc: KVNG LITNON Patient: BERENICE SILVA Exam Date: 04/09/2023 : 1945 Gender:F Ordering : DR KVNG LINTON M.D. Admission #: [id number] Family : Order #: [id number] CLICK HERE TO VIEW EXAM RADIOLOGY REPORT [...] ovarian cancer at age 52. LOCATION: [facility] BREAST COMPOSITION: Scattered areas fibroglandular density. FINDINGS: [...] M.D. on 04/10/2023 at 14:56 Dictated By: Tairq Levin M.D. Signed By:04/10/23 1458 DD/ 1457 TD/TT: Laser Engraver: Authorizing ProviderResult TypeResult StatusDanichong Marla Linton [facility] Final Result * Cologuard?? colon cancer [...] Piedra et al, N Engl J Med 2014;370(14):4461-6703) The normal value (reference range) for this assay is negative. COLOGUARD RE-SCREENING RECOMMENDATION: Periodic colorectal cancer screening is an important part ofpreventive healthcare for asymptomatic individuals at average risk for colorectal cancer. ??Following a negative Cologuard result, the [place] Cancer Society and U.S. Multi-Society Task Force screening guidelines recommend a Cologuard re-screening interval of 3 years. References: [place] [employer] Guideline for Colorectal Cancer Screening: https://www.cancer.or g/cancer/gkjyk-nvtzzj-ckdval/wzubjhrvt-ikkbrxbgi-dtxmabe/acs-recommendations.htm chase; Dave GALEAS, Jacobo ABRAHAM, Nika ARENAS, Colorectal Cancer Screening: Recommendations for Physicians and Patients from the U.S. Multi-Society Task Force on Colorectal Cancer Screening , Am J Gastroenterology 2017; 112:5693-2002. TEST DESCRIPTION: Composite algorithmic analysis of stool [...] Rosario. et al, N Engl J Med 2014;370(14):1352-1895.) Cologuard may produce a false negative or false positive result (no colorectal cancer or precancerous polyp present at colonoscopy follow up). A negative Cologuard test result does not guarantee the absence of CRC or advanced adenoma (pre-cancer). The current Cologuard screening interval is every 3 years. ([place] Cancer Society and U.S. Multi-Society Task Force). Cologuard performance data in a 10,000 patient pivotal study using colonoscopy as the reference method can be accessed at the following location: www.[employer].CritiTech/results. Additional description of the Cologuard test process, warnings and precautions can be found at www.[employer] Plusoguard.com. Specimen (Source)Anatomical Location / LateralityCollection Method / Volume Collection TimeReceived Time04/10/2022 Narrative Authorizing ProviderResult TypeResult StatusKvng GANDHI Lela [facility] ORDERABLESFinal ResultPerforming OrganizationAddressCity/State/ZIP CodePhone Number [facility] from Last 3 Months or Most Recently Relevant to Health Maintenance Insurance * Guarantor: Berenice Silva EAccount TypeRelation to PatientDate of BirthPhone Billing AddressPersonal/EjecjkMdmh[birth year][address] [address] Care Teams Team MemberRelationshipSpecialtyStart DateEnd Date Kvng Linton MD [address] [facility] [address] [place] [address] PCP - GeneralInternal Medicine11/27/22 Kvng Linton MD [address] [facility] [address] [place] [address] PCP - Rashid GALVEZ07/22/23 Reina Palma LPN [address] [facility] [address] [place] [address] 10/06/24
--- OUTSIDE RECORDS SUMMARY | 2025-06-14 15:12 | XMS_ITS | Clinical Summary ---
Author Organization [employer] [facility] tem Address [id number] [address] [place] [address] Care Team Providers Care Radio Presenter Name Role Phone Kvng Linton MD Primary Care Provider [phone] Allergies Active AllergyReactionsCriticalityNoted DateCommentsAmoxicillin-Pot Clavulanate 04/03/2021 Other reaction(s): nausea Sulfa (Sulfonamide Antibiotics)02/07/2022 Other reaction(s): itching Medications MedicationSigDispense QuantityRefillsLast FilledStart DateEnd DateStatus atorvastatin (LIPITOR) 10 mg tablet Take 1 tablet (10 mg total) by mouth in the morning.09/22/2020ctive gabapentin (NEURONTIN) 600 mg tablet Take 1 tablet (600 mg total) by mouth 3 (three) times a day. 600 mg morning, afternoon, 300mg hpmxiuc7210/24/2020ctive meloxicam (MOBIC) 15 mg tablet Take 1 [...] ProblemNoted DateDiagnosed DatePiriformis syndrome of right side10/31/2021Lumbar jztzunbq04/16/2022Lumbar pggpizqjttw90/12/2021isorder of fjcxvz1211/30/2020 Family History Medical HistoryRelationNameCommentsNo Known ProblemsFatherCancerMotherstarted Breast cancer then to bone and brainRelationNameStatusCommentsFatherDeceased MotherDeceased Social History Tobacco UseTypesPacks/DayYears UsedDateSmoking Tobacco: FormerCigarettes Smokeless Tobacco: Never Tobacco Cessation:Counseling Given: Not Answered Alcohol UseStandard Drinks/WeekCommentsNot Currently0 (1 standard drink = 0.6 oz pure alcohol)ChildcareAnswerDate WydrcmpfMecspjnvfUiaryps97/12/2019Employment AnswerDate RkuzfolyVhysxtpcloXudndim27/12/2019Hunger ScreeningAnswerDate RecordedWithin the past 12 months we worried whether our food would run out before we got money to buy more.Never True02/12/2024Food Insecurity - Inability Not on file02/12/2024CommentsNoSex and Gender InformationValueDate RecordedSex Assigned at BirthNot on fileLegal JmpJzlnyo56/06/2015 11:37 AM EDT Gender IdentityNot on fileSexual OrientationNot on file Last Filed Vital Signs Vital SignReadingTime TakenCommentsBlood Wusqgljp018/7008 9:05 AM EDT Hsanw035103/13/2024 9:05 AM AEVJgfnkyyfcqx48.5 ??C (97.7 ??F)03/13/2024 6:44 AM EDTRespiratory Ykoy5306 9:05 AM EDTOxygen Jyrszrdkbi38%03/13/2024 9:05 AM EDTInhaled Oxygen Concentration--Hrydly23 kg (136 lb 11 oz)03/13/2024 6:44 AM XZZTknmky295 cm (5' 10.87 )03/13/2024 6:44 AM EDTBody Mass Index19.14003/13/2024 6:44 AM EDT Plan of Treatment Health MaintenanceDue DateLast DoneCommentsDepression Chymzzkgt65/03/1960Zoster (Shingles) Vaccine (1 of 2)11/21/1997Fall Risk Ozysnbsnc44/03/2013DTaP,Tdap and Td Vaccines (2 - Td or Tdap)/08/2011RSV ( or age 60+ yrs) (1 - 1-dose 75+ series)11/21/2022Tobacco Lbovjyfer03/OVID-19 Vaccine ( season)/, 10/07/2020, 09/16/2020 Influenza Batkyig59/01/470972/, 05/03/2021, 04/12/2020, Additional history exists Medical Devices ImplantedTypeAreaManufacturerDevice IdentifierShelf Expiration DateModel / Serial / LotOrthopedic ImplantOrthopedic ImplantRight: Foot Insurance * Guarantor: Berenice Disla EAccount TypeRelation to PatientDate of BirthPhone Billing AddressPersonal/UundneRzgo90/03/1946 [address] [address] Care Teams Team MemberRelationshipSpecialtyStart DateEnd Date Kvng Linton MD [address] [facility] [address] [place] [phone] PCP - GeneralInternal Medicine11/30/20
--- OUTSIDE RECORDS SUMMARY | 2025-06-14 15:12 | XMS_ITS | Encounter Summary ---
Author Organization [facility] Address [address] [place] [address] Care Team Providers Care Hotel Security Officer Name Role Phone Kvng Linton MD Primary Care Provider [phone] Kvng Linton MD Unavailable Reina Palma LPN Unavailable Encounter Details DateTypeDepartmentCare Team (Latest Contact Info)Rblmqfsajzt26/21/2025Travel Social History Tobacco UseTypesPacks/DayYears UsedDateSmoking Tobacco: FormerCigarettes0.527 07/30/1965 - 07/22/1992Smokeless Tobacco: NeverAlcohol UseStandard Drinks/Week CommentsNever0 (1 standard drink = 0.6 oz pure alcohol)caffeine intake: more than 4 cups per day.B1300 Health LiteracyAnswerDate RecordedHow often do you need to have someone help you when you read instructions, pamphlets, or other written material from your doctor or pharmacy?Never03/05/2024Social Connection and Isolation PanelAnswerDate RecordedFrequency of Communication with Friends and FamilyNot on file03/05/2024Frequency of Social Gatherings with Friends and FamilyNot on file03/05/2024ttends Yarsanism ServicesNot on file03/05/2024ctive Member of Clubs or OrganizationsNot on file03/05/2024ttends Club or Organization MeetingsNot on file03/05/2024re you , , , , never , or living with a partner?Hylbput6403/05/2024UDIT-C AnswerDate RecordedQ1: How often do you have a drink containing alcohol?Never 03/05/2024Q2: How many drinks containing alcohol do you have on a typical day when you are drinking?Patient does not drink03/05/2024Q3: How often do you have six or more drinks on one occasion?Never03/05/2024Overall Financial Resource Strain (CARDIA)AnswerDate RecordedHow hard is it for you to pay for the very basics like food, housing, medical care, and heating?Very hard03/05/2024HQ-2 AnswerDate RecordedPatient Health Questionnaire-2 [id number] [facility] medical center [place] [facility] Occup[facility] - Occupational Stress QuestionnaireAnswerDate RecordedDo you feel stress - tense, restless, nervous, or anxious, or unable to sleep at night because yourmind is troubled all the time - these days?Only a owjacn0103/05/2024Exercise Vital SignAnswerDate RecordedOn average, how many days per week do you engage in moderate to strenuous exercise (like a brisk walk)? Patient uwgfszmw74/10/2024On average, how many minutes do you engage in exercise at this level?Patient uukeagbj97/10/2024Hunger Vital SignAnswerDate Recorded Within the past 12 months, you worried that your food would run out before you got the money to buymore.Never true03/05/2024Within the past 12 months, the food you bought just didn't last and you didn't have money to get more.Never true 03/05/2024RAPARE - TransportationAnswerDate RecordedIn the past 12 months, has lack of transportation kept you from medical appointments or from getting medications?No03/05/2024In the past 12 months, has lack of transportation kept you from meetings, work, or from getting things needed for daily living?No 03/05/2024Housing Stability Vital SignAnswerDate RecordedIn the last 12 months, was there a time when you were not able to pay the mortgage or rent on time?No 10/30/2023In the last 12 months, how many places have you lived?In the last 12 months, was there a time when you did not have a steady place to sleep or slept in ashelter (including now)?No10/30/2023Housing Stability Vital SignAnswerDate RecordedIn the last 12 months, was there a time when you were not able to pay the mortgage or rent on time?No03/05/2024In the past 12 months, how many times have you moved where you were living?t any time in the past 12 months, were you homeless or living in a halfway (including now)?No 03/05/2024CommentsUnknownSex and Gender InformationValueDate RecordedSex Assigned at BirthNot on fileLegal GhxTyedbh31/15/2023 7:12 PM EDTGender Identity Not on fileSexual OrientationNot on filedocumented as of this encounter Plan of Treatment DateTypeDepartmentCare Team (Latest Contact Info)Tnlxmzaymlo70/26/2025 11:30 AM ESTOffice Visit [facility] [place] [facility] [address] [place] [id number] Nicky Riddle PA [address] [place] [address] documented as of this encounter Visit Diagnoses Not on filedocumented in this encounter Additional Health Concerns AssessmentNoted TimePHQ-9 Depression Total Score: 9:00 AM EDT documented as of this encounter Care Teams Team MemberRelationshipSpecialtyStart DateEnd Date Kvng Linton MD [address] [place] [address] PCP - GeneralInternal Medicine11/27/22 Kvng Lniton MD [address] [place] [address] PCP - Rashid GALVEZ07/22/23 Reina Pamla LPN [address] [place] [address] (work) 10/06/24documented as of this encounter
--- OUTSIDE RECORDS SUMMARY | 2025-06-14 15:12 | XMS_ITS | Encounter Summary ---
Author Organization [facility] Address [address] [place] [address] Care Team Providers Care Traffic Administrator Name Role Phone Kvng Linton MD Primary Care Provider [phone] Kvng Linton MD Unavailable [phone] Reina Palma LPN Unavailable Reason for Visit * ReasonCommentsMed Refill Encounter Details DateTypeDepartmentCare Team (Latest Contact Info)Faqzgnmhjsv72/15/2025Refill [facility] [place] [facility] [address] [place] [address] Nicky Riddle PA [address] [place] [address] Primary osteoarthritis, unspecified site Social History Tobacco UseTypesPacks/DayYears UsedDateSmoking Tobacco: FormerCigarettes0.527 [...] Gatherings with Friends and FamilyNot on file03/05/2024ttends Hindu ServicesNot on file03/05/2024ctive Member of Clubs or OrganizationsNot on file03/05/2024ttends Club or Organization MeetingsNot on file03/05/2024re you , , , , never , or living with a partner?Wsxmfkr5403/05/2024UDIT-C AnswerDate RecordedQ1: How often do you have [...] and heating?Very hard03/05/2024HQ-2 AnswerDate RecordedPatient Health Questionnaire-2 Syqwy824Finun[facility] [place] of Occupational Health - Occupational Stress QuestionnaireAnswerDate RecordedDo you feel stress - tense, restless, nervous, or anxious, or unable to sleep at night because yourmind is troubled all the time - these days?Only a qvifhk6603/05/2024Exercise Vital SignAnswerDate RecordedOn average, how many days per week do you engage in moderate to strenuous exercise (like a brisk walk)? Patient uppivuht77/10/2024On average, how many minutes do you engage in exercise at this level?Patient /10/2024Hunger Vital SignAnswerDate Recorded Within the past 12 [...] homeless or living in a assisted (including now)?No 03/05/2024CommentsUnknownSex and Gender InformationValueDate RecordedSex Assigned at BirthNot on fileLegal EhzAyhean50/15/2023 7:12 PM EDTGender Identity Not on fileSexual OrientationNot on filedocumented as of this encounter Miscellaneous Notes * Telephone Encounter - India Payne - 06/09/2025 9:49 AM EST Appt scheduled * Telephone Encounter - YUE Mathew - 06/09/2025 9:30 AM EST Looks like pt is no longer scheduled for an appt. Please help her get scheduled within the next fewweeks. Partial Rx sent. Last refill until seen. OARRS report generated and reviewed. * Telephone Encounter - YUE Mathew - 06/08/2025 8:39 AM EST Will refill for pt at her appointment tomorrow. documented in this encounter Plan of Treatment DateTypeDepartmentCare Team (Latest Contact Info)Jsppgoxrfqq41/26/2025 11:30 AM ESTOffice Visit [facility] [place] [facility] [address] [place] [address] Nicky Riddle PA [address] [place] [address] documented as of this encounter Visit Diagnoses Diagnosis Primary osteoarthritis, unspecified site documented in this encounter Additional Health Concerns AssessmentNoted TimePHQ-9 Depression Total Score: 9:00 AM EDT documented as of this encounter Care Teams Team MemberRelationshipSpecialtyStart DateEnd Date Kvng Linton MD [address] [place] [address] PCP - GeneralInternal Medicine11/27/22 Kvng Linton MD [address] [place] [address] PCP - Rashid GALVEZ/08/14 Reina Palma LPN [address] [place] [address] 10/06/24documented as of this encounter
--- OUTSIDE RECORDS SUMMARY | 2025-06-14 15:27 | XMS_ITS | CCD ---
Author Organization [facility] Care Team Providers Care Senior Sales Executive Name Role Phone ANUP JOHN Attending Unavailable [...] Unavailable Kvng Linton MD Primary Care Provider [phone] Kvng Linton MD Unavailable IRWIN HODGE Attending Unavailable IRWIN HODGE Admitting Unavailable ROYA MATTHEWS Primary Care Unavailable KAMLA AYALA Referring Unavailable KVNG LINTON Primary Care Unavailable JESUS IBNGHAM Attending Unavailable KVNG LINTON Referring Unavailable KVNG LINTON Primary Care Unavailable KAMLA AYALA Attending Unavailable KVNG LINTON Referring Unavailable KVNG LINTON Primary Care Unavailable SEBASTIAN LAWSON Attending Unavailable LINTON, KVNG B Referring Unavailable LINTON, KVNG B Primary Care Unavailable KAMLA AYALA Admitting Unavailable KAMLA AYALA Attending Unavailable KAMLA AYALA Referring Unavailable LINTON, KVNG B Primary Care Unavailable KAMLA AYALA Attending Unavailable LUCY KAMLA E Referring Unavailable LINTON, KVNG B Primary Care Unavailable AYDEN LAN Attending Unavailable LINTON, KVNG B Primary Care Unavailable LINTON, KVNG B Referring Unavailable LINTON, KVNG B Primary Care Unavailable RENNY, ELYSSANATALLRAHEEL M Admitting Unavailable RENNY, MENNATALLAH M Attending Unavailable LINTON, KVNG B Primary Care Unavailable RENNY, MENNATALLRAHEEL M Attending Unavailable RENNY, MENNATALLAH M Referring Unavailable LINTON, KVNG B Primary Care Unavailable BRITTANY DEGROOT Attending Unavailable LINTON, KVNG B Primary Care Unavailable Saturday PARK LANDSCAPE ARCHITECT, Elvi Unavailable Saturday PARK LANDSCAPE ARCHITECT, Elvi Unavailable Heydi Parker RN Unavailable [place] PARK LANDSCAPE ARCHITECT, Reina Unavailable Unavailable [place] PARK LANDSCAPE ARCHITECT, Reina Unavailable TSERING STARR Attending Unavailable ANIVAL GILMAN Attending Unavailable KVNG LINTON Attending Unavailable NICKY RIDDLE Attending Unavailable KATLIN ROMERO Attending Unavailable KATLIN ROMERO Attending Unavailable NICKY RIDDLE Attending Unavailable Saturday PARK LANDSCAPE ARCHITECT, Elvi Unavailable Heydi Parker RN Unavailable Allergies Allergy ClassificationReported Allergen(s)Allergy TypeDate of OnsetReaction(s) Facility (1 source)Amoxicillin / ClavulanateDrug AllergyThe [facility] (1 source)CephalexinDrug Cucegmx64-86-3542Qhc [facility] (1 source)Sulfonamides (Antibiotic)Drug allergy (disorder)[facility] (20 sources)Sulfonamides (Antibiotic)Drug Bakhtmb38-70-8974[facility] (20 sources)Amoxicillin-Pot Clavulanate; Translations: [AMOXICILLIN-POT CLAVULANATE]Drug Wrcpunz95-24-2896Roqogt OnlyNOS[facility] (3 sources)Sulfonamides (Antibiotic); Translations: [SULFA (SULFONAMIDE ANTIBIOTICS)]Propensity to adverse reactions to drug (disorder)02-07-2022 [facility] Medications Current Medications MedicationDrug Class(es)DatesSig (Normalized)Sig (Original)acetaminophen 325 mg / HYDROcodone bitartrate 5 mg oral tablet (3 sources)Opioid AgonistStart: 10-22-2022 End: 75-51-1105ndtu 1 tablet by mouth four times daily as neededHYDROcodone- acetaminophen ([place]) 5-325 MG tablet Take 1 tablet by mouth 4 (four) times a day as needed. 0 10/22/2022 09/04/2023 Discontinued (Therapy completed) ALPRAZolam 0.5 mg oral tablet (9 sources)BenzodiazepineStart: 01-09-2024 End: 94-08-0580RGQILVocsg (Xanax) 0.5 MG tablet Indications: Anxiety about health Take 1 tablet (0.5 mg) by mouth as needed at bedtime for anxiety 30 tablet 1 01/09/2024 07/30/2024 Discontinued (Other)ascorbic acid 250 mg oral tablet (15 sources)Vitamin C End: 61-78-0487lgit 1 tablet by mouth in the morningascorbic acid (Vitamin C) 250 MG tablet Take 250 mg by mouth in the morning. 02/23/2025 Discontinued (Other)aspirin 81 mg delayed release oral tablet (20 sources)Platelet Aggregation Inhibitor, Nonsteroidal Anti-inflammatory Drug take 1 tablet by mouth once dailyaspirin 81 MG EC tablet Take 81 mg by mouth Daily Active End: 60-43-3862vefjawp 325 MG tablet Take 81 mg by mouth Daily 07/30/2024 Discontinued (Other)take 1 tablet by mouth in the morningaspirin 325 MG tablet Take 325 mg by mouth in the morning. Activeatorvastatin 10 mg oral tablet (20 sources)HMG-CoA Reductase InhibitorStart: 90-45-9121uefq 1 tablet by mouth in the morningatorvastatin (Lipitor) 10 MG tablet Indications: Dyslipidemia Take 1 tablet (10 mg) by mouth in themorning. 100 tablet 3 04/29/2024 ActiveStart: 71-58-7031kjya 1 tablet by mouth once daily in the morningatorvastatin (Lipitor) 10 MG tablet Indications: Dyslipidemia (CMS/HCC) TAKE 1 TABLET BY MOUTH EVERY DAY IN THE MORNING 90 tablet 09/16/2023 ActiveStart: 43-03-2070oezr 1 tablet by mouth in the morningatorvastatin (Lipitor) 10 MG tablet Indications: Dyslipidemia (CMS/HCC) Take 1 tablet (10 mg) by mouth in the morning. 90 tablet 0 09/04/2023 ActiveStart: 27-34-7623pfqh 1 tablet by mouth in the morning atorvastatin (Lipitor) 10 MG tablet Indications: Dyslipidemia (CMS/HCC) Take 1 tablet (10 mg) by mouth in the morning. 90 tablet 0 09/04/2023 ActiveStart: 06-10-2023 End: 87-92-8737uqzu 1 tablet by mouth once daily in the morningatorvastatin (Lipitor) 10 MG tablet Indications: Dyslipidemia (CMS/HCC) TAKE 1 TABLET BY MOUTH EVERY DAY IN THE MORNING 90 tablet 0 06/10/2023 09/04/2023 Discontinued (Reorder)calcium carbonate 500 mg oral tablet (12 sources) End: 75-66-7850cpingcm carbonate (Os-King) 1250 (500 Ca) MG tablet every 12 (twelve) hours. 07/30/2024 Discontinued(Other)cholecalciferol 0.05 mg oral tablet (20 sources)Vitamin Dtake 1 tablet by mouth in the morningcholecalciferol (Vitamin D-3) 50 MCG (2000 UT) tablet Take 1,000 Units by mouth in the morning. ActivecloNIDine hydrochloride 0.1 mg oral tablet (15 sources)Central alpha-2 Adrenergic AgonistStart: 11-11-2024 End: 52-16-9986zvwm 1 tablet by mouth every eight hours for hypertension cloNIDine (Catapres) 0.1 MG tablet Indications: Essential (primary) hypertension TAKE 1 TABLET BY MOUTH EVERY 8 HOURS IF NEEDED FOR HIGH BLOOD PRESSURE FOR 170 OR GREATER 30 tablet 12/09/2024 Activegabapentin 600 mg oral tablet (20 sources)Anti-epileptic AgentStart: 97-09-9374vzqasunshe (Neurontin) 600 MG tablet Indications: Neuralgia TABLET 1/2 TABLET BY MOUTH TWICE A DAY AND TAKE 1 TABLET BY MOUTH EVERY DAY AT BEDTIME 180 tablet 3 02/01/2025 ActiveStart: 21-45-7756hvmvryvyyg (Neurontin) 600 MG tablet Indications: Neuralgia TABLET 1/2 TABLET BY MOUTH TWICE A DAY AND TAKE 1 TABLET BY MOUTH EVERY DAY AT BEDTIME 180 tablet 3 02/28/2024 ActiveStart: 32-87-4303gbnjafzjin (Neurontin) 600 MG tablet Indications: Neuralgia TABLET 1/2 TABLET BY MOUTH TWICE A DAY AND TAKE 1 TABLET BY MOUTH EVERY DAY AT BEDTIME 180 tablet 3 06/04/2023 ActivehydroCHLOROthiazide 12.5 mg / losartan potassium 50 mg oral tablet (3 sources)Thiazide Diuretic, Angiotensin 2 Receptor Blockertake 1 tablet by mouth in the morninglosartan-hydroCHLOROthiazide (Hyzaar) 50-12.5 MG tablet Take 1 tablet by mouth in the morning and 1tablet before bedtime. 0 Active hydroCHLOROthiazide 12.5 mg / olmesartan medoxomil 20 mg oral tablet (20 sources)Thiazide Diuretic, Angiotensin 2 Receptor BlockerStart: 10-03-2023 End: 45-27-9441ptvu 1 tablet by mouth once dailyolmesartan-hydroCHLOROthiazide (BENIcar HCT) 20-12.5 MG tablet Indications: Essential (primary) hypertension Take 1 tablet by mouth Daily 07/30/2024 Activeibuprofen 800 mg oral tablet (15 sources)Nonsteroidal Anti-inflammatory DrugStart: 05-13-2024 End: 46-24-3567vvcv 1 tablet by mouth every six hours as needed for pain ibuprofen 800 MG tablet Take 800 mg by mouth every 6 (six) hours if needed for moderate pain 05/13/2024 02/23/2025 Discontinued (Therapy completed)linaclotide 0.072 mg oral capsule (9 sources)Guanylate Cyclase-C AgonistStart: 10-22-2023 End: 43-93-9320holg 1 capsule by mouth before mealtimelinaCLOtide (Linzess) 72 MCG capsule Indications: Chronic idiopathic constipation Take 1 capsule (72 mcg) by mouth in the morning. Take before meals. Do not crush or chew.. 10/22/2023 07/30/2024 Discontinued (Other)meloxicam 15 mg oral tablet (20 sources)Nonsteroidal Anti-inflammatory DrugStart: 02-06-2024 End: 91-62-8128gaog 1 tablet by mouth once daily at mealtimemeloxicam (Mobic) 15 MG tablet Indications: Inflammatory and toxic neuropathy (HCC) , Neurogenic pain Take 1 tablet (15 mg) by mouth Daily Take with food 90 tablet 3 09/18/2024 ActiveStart: 26-63-9223lqqb 1 tablet by mouth once dailymeloxicam (Mobic) 15 MG tablet Indications: Inflammatory and toxic neuropathy (CMS/HCC) , Neurogenic pain TAKE 1 TABLET BY MOUTH EVERY DAY 60 tablet 2 04/16/2023 ActiveMultiple Vitamin (Multi-Vitamin) tablet (20 sources)take 1 tablet by mouth in the morningMultiple Vitamin (Multi- Vitamin) tablet Take 1 tablet by mouth in the morning. Activemupirocin 0.02 mg/mg topical ointment (5 sources)RNA Synthetase Inhibitor AntibacterialStart: 00-86-2593xsahtbnlx (Bactroban) 2 % ointment Indications: Epidermal inclusion cyst Apply to affected area (abdomen) with dressing changes, 30 day supply 22 g 03/02/2025 Active rOPINIRole 0.5 mg oral tablet (20 sources)Nonergot Dopamine AgonistStart: 02-27-2024 End: 39-08-3346hlxi 2 tablets by mouth in the morningrOPINIRole (Requip) 0.5 MG tablet Indications: Restless Leg Syndrome Take 2 tablets (1 mg) by mouthin the morning and 2 tablets (1 mg) before bedtime. 360 tablet 3 07/30/2024 Active Start: 22-03-6021kycg 2 tablets by mouth in the morningrOPINIRole (Requip) 0.5 MG tablet Indications: Restless legs syndrome (RLS) TAKE 2 TABLETS BY MOUTHIN THE MORNING AND TAKE 2 TABLETS AT BEDTIME 360 tablet 1 06/17/2023 Active sulfamethoxazole 800 mg / trimethoprim 160 mg oral tablet (1 source)Dihydrofolate Reductase Inhibitor Antibacterial, Sulfonamide AntimicrobialStart: 04-06-2024 End: 57-73-3907omya 1 tablet by mouth once in the morning, then take 1 tablet by mouth once at bedtimesulfamethoxazole-trimethoprim (Bactrim DS) 800-160 MG per tablet Indications: Follicular cyst of skin and subcutaneous tissue , Carbuncle and furuncle of trunk Take 1 tablet by mouth in the morning and 1 tablet before bedtime. Do all this for 10 days. 20 tablet 04/06/2024 04/16/2024 ActivetraMADol hydrochloride 50 mg oral tablet (20 sources)Opioid AgonistStart: 02-06-2024 End: 28-00-9491vrnl 1 tablet by mouth every six hours for paintraMADol (Ultram) 50 MG tablet Indications: Primary osteoarthritis, unspecified site Take 1 tablet (50 mg) by mouth every 6 (six) hours if needed for severe pain for up to 10 days 40 tablet 02/23/2025 03/05/2025 Activetake 1 tablet by mouth every six hours as neededtraMADol (Ultram) 50 MG tablet 1 TABLET NEEDED ORALLY EVERY 6 HOURS 14 DAYS 0 Active Problems Active Problems Problem ClassificationProblemDateDocumented DateEpisodic/ChronicAcquired foot deformities (20 sources)Other hammer toe(s) (acquired), right foot; Translations: [Acquired hallux malleus]Onset: 997067-39-4822TjjxkomCawowxvqklzvvr/social admission (2 sources)Patient encounter status; Translations: [Other specified counseling] 21-37-1278CvkxwahaIhtzliq disorders (20 sources)Anxiety disorder, unspecified; Translations: [Anxiety]Onset: 685249-02-7846AlynquzLrdssru ulcer of skin (20 sources)Non-pressure chronic ulcer of other part of right foot with fat layer exposed; Translations: [Non-pressure chronic ulcer of other part of right foot with necrosis of bone]Onset: 01-11-2022 Resolved: 04-01-3857OtsdgbxRrmzsjuv mellitus with complications (1 source)Type 2 diabetes mellitus with foot ulcer; Translations: [TYPE 2 DM W/FOOT ULCER]Onset: 12-30-8827VlowsxyFbirrfvps of lipid metabolism (20 sources)Hyperlipidemia, unspecified; Translations: [Dyslipidemia]Onset: 68-59-4664RdyccdbPmvixgrswayoan and diverticulitis (2 sources)Diverticulosis of large intestine without perforation or abscess without bleeding; Translations: [Diverticulosis of intestine, part unspecified, without perforation or abscess without bleeding]Onset: 58-14-2409Cmlpnik Esophageal disorders (20 sources)Gastro-esophageal reflux disease without esophagitis; Translations: [Laryngopharyngeal reflux]Onset: 782698-29-4582QxmsqpoIakeujmaz hypertension (20 sources)Essential (primary) hypertension; Translations: [Essential hypertension]Onset: 628930-13-0888NoskeoiHbwoogcgwxtuw symptoms and ill- defined conditions (2 sources)Increased frequency of urination; Translations: [Frequency of micturition]76-96-7333KospzcaxBshnppjkhb obstruction without hernia (1 source)Other intestinal obstruction unspecified as to partial versus complete obstruction; Translations: [Other intestinal obstruction unspecified as to partial versus complete obstruction]Onset: 40-33-9052MdbvtljqIvglgzgxio disorders (20 sources)Decreased estrogen level; Translations: [Other primary ovarian failure]Onset: 936737-42-9444VjpsgpcShkfwyblsrl deficiencies (20 sources)Vitamin D deficiency; Translations: [Vitamin D deficiency, unspecified]Onset: 922576-02-8193CanaofpNfbxpqvuzpcghu (20 sources)Primary osteoarthritis, right shoulder; Translations: [Arthritis of shoulder region joint]Onset: 08-22-2009 Resolved: 016662-63-0668FnucoliEsauq acquired deformities (1 source)Contracture, right ankle; Translations: [CONTRACTURE RIGHT ANKLE] Onset: 29-07-6454GitzmfvHpodt acquired deformities (20 sources)Equinus contracture of the ankle; Translations: [Contracture, right ankle]Onset: 601577-92-1148MgvhpvuFjsmw aftercare (1 source)Other penitentiary (current) drug therapy; Translations: [OTH [facility] CURRENT DRUG THERAPY]Onset: 65-51-4938CzssvyfgYefvx aftercare (2 sources)Removal of sutures done; Translations: [Encounter for removal of sutures]63-76-8387XlfxcdvsAodea connective tissue disease (1 source)Arthrodesis status; Translations: [ARTHRODESIS STATUS]Onset: 88-04-5537XquhfeeyMhkeb connective tissue disease (4 sources)Pain in right foot; Translations: [PAIN IN RIGHT FOOT]Onset: 29-72-3538XvydpcfbSardu gastrointestinal disorders (20 sources)Chronic idiopathic constipation; Translations: [Chronic idiopathic constipation]Onset: 978918-17-5364IfwyjejSzcry gastrointestinal disorders (2 sources)Constipation, unspecified; Translations: [Constipation, unspecified] Onset: 53-91-9521WgfwbirgWuxvh gastrointestinal disorders (3 sources)Change in bowel habit; Translations: [Change in bowel habit]Onset: 71-30-3726QbsoukjvMitzs gastrointestinal disorders (1 source)ConstipationOnset: 97-76-8809QqldbfoqXdhna hereditary and degenerative nervous system conditions (5 sources)Restless legs syndrome; Translations: [RESTLESS LEGS SYNDROME]Onset: 26-62-5728NwdmgmtGzfwh hereditary and degenerative nervous system conditions (20 sources)Restless legs; Translations: [Restless legs syndrome]Onset: 443223-66-8330ZgwiahsVhbqt lower respiratory disease (2 sources)Snoring; Translations: [Snoring]88-92-5359QgupdauuWvujk lower respiratory disease (2 sources)Apnea; Translations: [Apnea, not elsewhere classified]07-30-2024 EpisodicOther nervous system disorders (1 source)Other chronic pain; Translations: [OTHER CHRONIC PAIN]Onset: 21-98-8426QbpyalzBuhso nervous system disorders (5 sources)Polyneuropathy, unspecified; Translations: [POLYNEUROPATHY UNSPECIFIED]Onset: 81-16-0687EsveoqoZrrmj nervous system disorders (20 sources)Hereditary motor and sensory neuropathy; Translations: [Hereditary motor and sensory neuropathy]Onset: 029392-75-6018GzcsixoRbtzz nervous system disorders (20 sources)Inflammatory and toxic neuropathy; Translations: [Polyneuropathy due to other toxic agents]Onset: 109479-05-2256UmzknykUnijh nervous system disorders (20 sources)Chronic pain; Translations: [Other chronic pain]Onset: 03-12-2023 62-44-5094BwgqukmIyuyd nervous system disorders (2 sources)Burning sensation; Translations: [Other disturbances of skin sensation]66-83-8691YxwrirhmUocvu non-traumatic joint disorders (1 source)Charcot's joint, right ankle and foot; Translations: [CHARCOTS JOINT RIGHT ANKLE AND F]Onset: 46-09-0011MfkkiwhQpvhp non-traumatic joint disorders (1 source)Other specified arthritis, unspecified site; Translations: [OTHER SPECIFIED ARTHRITIS UNS SITE]Onset: 13-90-9378QufaafrNfxml non-traumatic joint disorders (20 sources)Charcot's arthropathy; Translations: [Charcot's joint, unspecified site]Onset: 03-12-2023 Resolved: 573149-87-4141PqimafeYyxea non-traumatic joint disorders (20 sources)Polyarthropathy; Translations: [Polyarthritis, unspecified]Onset: 755255-77-3678ClqjunpQospr nutritional; endocrine; and metabolic disorders (20 sources)Xanthomatosis; Translations: [Other lipid storage disorders]Onset: 411323-43-0951NcecivzPaloc skin disorders (5 sources)Nail dystrophy; Translations: [NAIL DYSTROPHY]Onset: 06-19-2022 EpisodicOther skin disorders (3 sources)Follicular cysts of skin and subcutaneous tissue; Translations: [Follicular cyst of the skin and subcutaneous tissue, unspecified]05-04-2024 EpisodicOther skin disorders (4 sources)Infection of sebaceous cyst; Translations: [Other specified follicular disorders]50-31-8464AuyiregiAqbng skin disorders (4 sources)Epidermoid cyst; Translations: [Epidermal cyst]51-35-6910Eocakxjs Other skin disorders (11 sources)Onychoatrophy; Translations: [Nail dystrophy]Onset: 02-23-2025 78-36-6948UzwlaixqRcveaaeo codes; unclassified (1 source)Localized edema; Translations: [LOCALIZED EDEMA]Onset: 2022 EpisodicResidual codes; unclassified (2 sources)Tenderness ; Translations: [Pain, unspecified]42-73-5872Okkhepql Residual codes; unclassified (11 sources)Edema; Translations: [Edema, unspecified]Onset: EpisodicResidual codes; unclassified (2 sources)Pain; Translations: [Pain, unspecified]28-40-1586KrffwcipLvvjffxgft arthritis and related disease (2 sources)Rheumatoid arthritis; Translations: [Rheumatoid arthritis, unspecified]22-91-7226NfuleskBdljyxdpt and history of mental health and substance abuse codes (1 source)Personal history of nicotine dependence; Translations: [PERSONAL HISTORY OF NICOTINE DEPEND]Onset: 04-94-8385UjxfnunfTlrrzxptdu (except in labor) (1 source)Sepsis, unspecified organism; Translations: [Sepsis, unspecified organism]Onset: 77-16-0462KetaaymcYcjj and subcutaneous tissue infections (8 sources)Cellulitis of right lower limb; Translations: [Cellulitis of left lower limb]Onset: 57-32-9820FicsspnkWxcryurbmid; intervertebral disc disorders; other back problems (20 sources)Degeneration of lumbar intervertebral disc; Translations: [Other intervertebral disc degeneration, lumbar region]Onset: ChronicTransient cerebral ischemia (13 sources)Transient cerebral ischemia; Translations: [Transient cerebral ischemic attack, unspecified]Onset: 472078-38-5380CtqirilJbfmscehxyvu (1 source)CONTACT W/AND (SUSP) EXPOS COVID-19; Translations: [CONTACT W/AND (SUSP) EXPOS COVID-19]Onset: 24-71-3773Mftckwelvxxn (1 source)ABNORMAL COLONOGRAPHYOnset: 07-98-3597Vbofkovlegla (1 source)change in bowel habits, constipationOnset: 12-19-2023 Past or Other Problems Problem ClassificationProblemDateDocumented DateEpisodic/ChronicAcquired foot deformities (1 source)Other acquired deformities of right foot; Translations: [OTHER ACQUIRED DEFORMITIES RT FOOT]Onset: 39-64-5413JoglrfcqLqeefgpx reactions (20 sources)Actinic cheilitis; Translations: [Other specified acute skin changes due to ultraviolet radiation]Onset: 03-12-2023 Resolved: 224138-10-5385YcrchzewCuwogrr dysrhythmias (20 sources)Tachycardia; Translations: [Tachycardia, unspecified]Onset: 156520-65-4399HdnmdocuMjbskprkcn and other anemia (1 source)Anemia, unspecified; Translations: [ANEMIA UNSPECIFIED]Onset: 19-92-9554AwteghfmHmhfh and electrolyte disorders (2 sources)Hypo-osmolality and hyponatremia; Translations: [Hypokalemia]Onset: 71-69-3777RnewerpmNvwgtkgempbzb and screening for infectious disease (20 sources)Other specified abnormal immunological findings in serum; Translations: [Rheumatoid factor positive]Onset: 067038-62-1452Rvkxatqj Infective arthritis and osteomyelitis (except that caused by tuberculosis or sexually transmitted disease) (12 sources)Other osteomyelitis, lower leg; Translations: [Other acute osteomyelitis, right ankle and foot]Onset: 06-28-2022 Resolved: 123277-42-4688HawazzoAlbi disorders (20 sources)Mood disordersOnset: 02-06-2024 Resolved: Other bone disease and musculoskeletal deformities (20 sources)Osteopenia; Translations: [Other specified disorders of bone density and structure, multiple sites]Onset: 606592-69-2132XfpumsitCmcbn connective tissue disease (20 sources)Spasm of cervical paraspinous muscle; Translations: [Other muscle spasm]Onset: 566064-49-7444DvbahcptKyhan connective tissue disease (20 sources)Impingement syndrome of right shoulder region; Translations: [Impingement syndrome of right shoulder]Onset: 885635-75-3849FawngbihVubhn connective tissue disease (20 sources)Muscle atrophy; Translations: [Muscle wasting and atrophy, not elsewhere classified, unspecified site]Onset: 727289-07-6637ZkeffxkoYmlpp connective tissue disease (20 sources)Neurogenic pain; Translations: [Neuralgia and neuritis, unspecified] Onset: 882404-19-6244VmggnghpOccer gastrointestinal disorders (20 sources)Dysphagia; Translations: [Dysphagia, pharyngoesophageal phase]Onset: 435999-50-8073KldtajqrYatnb infections; including parasitic (20 sources)History of sepsis; Translations: [Personal history of other infectious and parasitic diseases]Onset: 975667-97-6755EtzzuimxMuyea nervous system disorders (20 sources)Right-sided piriformis syndrome; Translations: [Lesion of sciatic nerve, right lower limb]Onset: 10-31-2021 Resolved: 006519-23-3363KcwejhcBfurv screening for suspected conditions (not mental disorders or infectious disease) (20 sources)Blood chemistry abnormal; Translations: [Abnormal finding of blood chemistry, unspecified]Onset: 411242-72-9179LybvpnnmIlazw skin disorders (1 source)Corns and callosities; Translations: [CORNS AND CALLOSITIES]Onset: 34-03-2847LwspqpylCcnpyydtgsy; intervertebral disc disorders; other back problems (20 sources)Sciatica; Translations: [Sciatica, left side]Onset: 11-30-2020 24-13-0380Mueelfjj Results Test NameValueInterpretationReference Oliver Kirby Informationon 60-14-8863Rrpovv length (cm): 2.3 Lesion width (cm): 2 [...] used: 6.0 ml Estimated blood loss: <1.0 mlNDepartment of Veterans Affairs Tomah Veterans' Affairs Medical CenterComplexity: Intermediate Final length (cm): 2.3 Reason for [...] infection, uncontrollable bleeding, or complications. Dressing type: bandageNOMS HealthcareXR FOOT RT MIN 3Von 76-30-6501[place] [address] XRay Report Signed Patient: BERENICE SILVA MR#: [id number] : 1945 Acct:[id number] Age/Sex: 79 / F ADM Date: 01/27/25 Loc: [facility] Attending Dr: Anup John D.P.M. Ordering Physician: Anup John D.P.M. Date of Service: 01/27/25 Procedure(s): XR foot RT min 3V Accession Number(s): [id number] cc: KVNG LINTON ; Anup John D.P.M. [place] [address] Patient Name: BERENICE SILVA MRN: [id number] date: 1945 Sex: F Assigned Patient Location: [facility] Current Patient Location: Accession/Order Number: [id number] Exam Date: 01/27/2025 15:38 Report Date: 01/27/2025 [...] Fish M.D. 01/27/2025 3:41 PM Dictation Location: [place] [address] Electronically authenticated by: [id number] Date: 01/27/2025 15:41 Dictated By: Lew Fish D.O. Signed By: 01/27/25 1543 DD/ 1541 TD/TT: Otr Tanker Truck Driver:TBHRadiology, Radiologist, MD - 01/27/2025 [place] [address] XRay Report Signed Patient: BERENICE SILVA MR#: [id number] : 1945 Acct:[id number] Age/Sex: 79 / F ADM Date: 01/27/25 Loc: RAD Attending Dr: Anup John D.P.M. Ordering Physician: Anup John D.P.M. Date of Service: 01/27/25 Procedure(s): XR foot RT min 3V Accession Number(s): [id number] cc: KVNG LINTON ; Anup John D.P.M. [place] [address] Patient Name: BERENICE SILVA MRN: [id number] date: 1945 Sex: F Assigned Patient Location: [facility] Current Patient Location: Accession/Order Number: [id number] Exam Date: 01/27/2025 15:38 Report Date: 01/27/2025 [...] Fish M.D. 01/27/2025 3:41 PM Dictation Location: [facility] Electronically authenticated by: [id number] Date: 01/27/2025 15:41 Dictated By: Lew Fish D.O. Signed By: 01/27/25 1543 DD/ 154 TD/TT: Otr Tanker Truck Driver: TAM HealthcareRadiology Study observation (narrative)NOM HealthcareXR FOOT RT MIN 3VOrdered By: Radiologist Radiology on [id number] [facility] Work Phone: cBC (INCLUDES DIFF/PLT)on 28-77-6074Klvzvmvhr (Bld) [#/Vol]0.053 10*3/uLNormal0-200Quest DiagnosticsComment on above:Performed By: #### 6399, 7600, 46120 #### [facility] [place] [address] [employer]: Keagan Holly MDBasophils/100 WBC (Bld)1.0 %NormalQuest DiagnosticsComment on above:Performed By: #### 6399, 7600, 40622 #### [facility] [place] [address] [employer]: Keagan Holly MDEosinophils (Bld) [#/Vol]0.143 10*3/uLNormal 15-500Quest DiagnosticsComment on above:Performed By: #### 6399, 7600, 41636 #### [facility] [place] [address] [employer]: Keagan Holly MDEosinophils/100 WBC (Bld)2.7 %NormalQuest DiagnosticsComment on above:Performed By: #### 6399, 7600, 40850 #### [facility] [place] [address] [employer]: Keagan Holly MDErythrocyte distribution width (RBC) [Ratio] 11.9 %Ouenob19.0-15.0Quest DiagnosticsComment on above:Performed By: #### 6399, 7600, 39019 #### [facility] of [address], [address] [place] [address] [employer]: Keagan Holly MDHematocrit (Bld) [Volume fraction]38.1 %Normal 35.0-45.0Quest DiagnosticsComment on above:Performed By: #### 6399, 7600, 46771 #### [facility] of [address], [address] [place] [address] [employer]: Keagan Holly MDHemoglobin (Bld) [Mass/Vol]13.1 g/dLNormal 11.7-15.5Quest DiagnosticsComment on above:Performed By: #### 6399, 7600, 29958 #### [facility] of [address], [address] [place] [address] [employer]: Keagan Holly MDLymphocytes (Bld) [#/Vol]1.988 10*3/uLNormal 850-3900Quest DiagnosticsComment on above:Performed By: #### 6399, 7600, 12338 #### [facility] of [place] [address] [employer]: Keagan Holly MDLymphocytes/100 WBC (Bld)37.5 %NormalQuest DiagnosticsComment on above:Performed By: #### 6399, 7600, 72509 #### [facility] of [place] [address] [employer]: Keagan Holly MDMCH (RBC) [Entitic mass]31.3 vxRpvdnw98.0-33.0 Quest DiagnosticsComment on above:Performed By: #### 6399, 7600, 70832 #### [facility] of [place] [address] [employer]: Keagan Holly MDMCHC (RBC) [Mass/Vol]34.4 g/nZGsquke89.0-36.0 Quest DiagnosticsComment on above:Result Comment: For adults, a slight decrease in the calculated MCHC value (in the range of 30 to 32 g/dL) is most likely not clinically significant; however, it should be interpreted with caution in correlation with other red cell parameters and the patient's clinical condition.Performed By: #### 6399, 7600, 73095 #### [facility] of [place] [address] [employer]: Keagan PHIPPSCV (RBC) [Entitic vol]91.1 uJExghnp33.0-100.0 Quest DiagnosticsComment on above:Performed By: #### 6399, 7600, 29089 #### [facility] [place] [address] [employer]: Keagan Holly MDMonocytes (Bld) [#/Vol]0.392 10*3/uLNormal 200-950Quest DiagnosticsComment on above:Performed By: #### 6399, 7600, 00277 #### [facility] of [place] [address] [employer]: Keagan Holly MDMonocytes/100 WBC (Bld)7.4 %NormalQuest DiagnosticsComment on above:Performed By: #### 6399, 7600, 33743 #### [facility] [place] [address] [employer]: Keagan Holly MDNeutrophils (Bld) [#/Vol]2.724 10*3/uLNormal 1500-7800Quest DiagnosticsComment on above:Performed By: #### 6399, 7600, 54740 #### [facility] of [place] [address] [employer]: Keagan Holly MDNeutrophils/100 WBC (Bld)51.4 %NormalQuest DiagnosticsComment on above:Performed By: #### 6399, 7600, 23910 #### [facility] of [address], [address] [place] [address] [employer]: Keagan Holly MDPlatelet mean volume (Bld) [Entitic vol]9.1 fL Normal7.5-12.5Quest DiagnosticsComment on above:Performed By: #### 6399, 7600, 44279 #### [facility] of [address], [address] [place] [address] [employer]: Keagan Holly MDPlatelets (Bld) [#/Vol]335 10*3/uLNormal 140-400Quest DiagnosticsComment on above:Performed By: #### 6399, 7600, 64035 #### [facility] of [address], [address] [place] [address] [employer]: Keagan Holly MDRBC (Bld) [#/Vol]4.18 10*6/uLNormal3.80-5.10 Quest DiagnosticsComment on above:Performed By: #### 6399, 7600, 13681 #### [facility] of [address], [address] [place] [address] [employer]: Keagan Holly MDWBC (Bld) [#/Vol]5.3 10*3/uLNormal3.8-10.8 Quest DiagnosticsComment on above:Performed By: #### 6399, 7600, 28771 #### [facility] of [address], [address] [place] [address] [employer]: Keagan Holly MDCOMPREHENSIVE METABOLIC PANELon 08-04-2024 Albumin [Mass/Vol]4.4 g/dLNormal3.6-5.1Quest DiagnosticsComment on above: Performed By: #### 6399, 7600, 96910 #### [facility] of [address], [address] [place] [address] [employer]: Keagan Holly MDAlbumin/Globulin [Mass ratio]1.8 {ratio}Normal 1.0-2.5Quest DiagnosticsComment on above:Performed By: #### 6399, 7600, 52598 #### [facility] of [address], [address] [place] [address] [employer]: Keagan Holly MDALP [Catalytic activity/Vol]68 U/YDppyoz69-617 Quest DiagnosticsComment on above:Performed By: #### 6399, 7600, 43925 #### [facility] of [address], [address] [place] [address] [employer]: Keagan Holly MDALT [Catalytic activity/Vol]15 U/LNormal6-29 Quest DiagnosticsComment on above:Performed By: #### 6399, 7600, 02998 #### [facility] of [place] [address] [employer]: Keagan Holly MDAST [Catalytic activity/Vol]18 U/PThchkj08-01 Quest DiagnosticsComment on above:Performed By: #### 6399, 7600, 03572 #### [facility] of [place] [address] [employer]: Keagan Holly MDBilirubin [Mass/Vol]0.5 mg/dLNormal0.2-1.2 Quest DiagnosticsComment on above:Performed By: #### 6399, 7600, 20973 #### [facility] of [place] [address] [employer]: Keagan Holly MDBUN/CREATININE RATIOSEE NOTE:Normal6-22Quest DiagnosticsComment on above:Result Comment: Not Reported: BUN and Creatinine are within reference range.Performed By: #### 6399, 7600, 99668 #### [facility] of [place] [address] [employer]: Keagan Holly MDCalcium [Mass/Vol]9.5 mg/dLNormal8.6-10.4Quest DiagnosticsComment on above:Performed By: #### 6399, 7600, 24684 #### [facility] of [address], [address] [place] [address] [employer]: Keagan Holly MDChloride [Moles/Vol]100 mmol/BJhkddl65-114 Quest DiagnosticsComment on above:Performed By: #### 6399, 7600, 43200 #### [facility] of [address], [address] [place] [address] [employer]: Keagan Holly MDCO2 [Moles/Vol]31 mmol/PRtxuvi70-86Nphnt DiagnosticsComment on above:Performed By: #### 6399, 7600, 04716 #### [facility] of [address], [address] [place] [address] [employer]: Keagan LEWISreatinine [Mass/Vol]0.74 mg/dLNormal0.60-1.00 Quest DiagnosticsComment on above:Performed By: #### 6399, 7600, 97961 #### [facility] of [address], [address] [place] [address] [employer]: Keagan Holly MDGFR/1.73 sq M.predicted among non-blacks MDRD (S/P/Bld) [Vol rate/Area]84 mL/min/{1.73_m2}Normal> OR = 60[facility] Comment on above:Performed By: #### 6399, 7600, 74233 #### [facility] of [place] [address] [employer]: Keagan Holly MDGlobulin (S) [Mass/Vol]2.5 g/dLNormal1.9-3.7 [facility] DiagnosticsComment on above:Performed By: #### 6399, 7600, 92682 #### [facility] of [place] [address] [employer]: Keagan Holly MDGlucose [Mass/Vol]88 mg/nMWwshag94-51Smbqn DiagnosticsComment on above:Result Comment: Fasting reference intervalPerformed By: #### 6399, 7600, 05058 #### [facility] of [address], [address] [place] [address] [employer]: Keagan Holly MDPotassium [Moles/Vol]4.0 mmol/LNormal3.5-5.3 Quest DiagnosticsComment on above:Performed By: #### 6399, 7600, 60232 #### [facility] of [address], [address] [place] [address] [employer]: Keagan Holly MDProtein [Mass/Vol]6.9 g/dLNormal6.1-8.1Quest DiagnosticsComment on above:Performed By: #### 6399, 7600, 30190 #### [facility] of [address], [address] [place] [address] [employer]: Keagan Holly MDSodium [Moles/Vol]138 mmol/BRshqay438-288Vgynh DiagnosticsComment on above:Performed By: #### 6399, 7600, 23226 #### [facility] of [address], [address] [place] [address] [employer]: Keagan Holly MDUrea nitrogen [Mass/Vol]16 mg/dLNormal7-25 Quest DiagnosticsComment on above:Performed By: #### 6399, 7600, 52507 #### [facility] of [place] [address] [employer]: Keagan Holly MDLIPID PANEL, STANDARD 13-73-9535Ycymtvwdesd [Mass/Vol]261 mg/dLHigh<200Quest DiagnosticsComment on above:Order Comment: FASTING:YES FASTING: YESPerformed By: #### 6399, 7600, 18338 #### [facility] of [place] [address] [employer]: Keagan Holly MDCholesterol in HDL [Mass/Vol]66 mg/dLNormal> OR = 50Quest DiagnosticsComment on above:Order Comment: FASTING:YES FASTING: YESPerformed By: #### 6399, 7600, 82769 #### [facility] [address], [address] [place] [address] [employer]: Keagan LEWISholesterol in LDL [Mass/Vol]161 mg/dLHigh [facility] DiagnosticsComment on above:Order Comment: FASTING:YES FASTING: YESResult Comment: Reference range: <100 Desirable range <100 mg/dL for primary prevention; <70 mg/dL for patients with CHD or diabetic patients with > or = 2 CHD risk factors. LDL-C is now calculated using the Anca calculation, which is a validated novel method providing better accuracy than the Friedewald equation in the estimation of LDL-C. Edwin SS et al. LUL. 2013;310(19): 8470-3541 (http://education.[employer]/faq/ATU462)Performed By: #### 7799, 7600, 44460 #### [facility] [address], [address] [place] [address] [employer]: Keagan Farrstwest.total/Cholesterol in HDL [Mass ratio]4.0 {ratio}Normal<5.0Quest DiagnosticsComment on above:Order Comment: FASTING:YES FASTING: YESPerformed By: #### 6399, 7600, 71874 #### [facility] [address], [address] [place] [address] [employer]: Keagan Holly MDNON HDL FGSCTKENWKN937 mg/dL (calc)High<130 Quest DiagnosticsComment on above:Order Comment: FASTING:YES FASTING: YESResult Comment: For patients with diabetes plus 1 major ASCVD risk factor, treating to a non-HDL-C goal of <100 mg/dL (LDL-C of <70 mg/dL) is considered a therapeutic option.Performed By: #### 6399, 7600, 14908 #### [facility] [address], [address] [place] [address] [employer]: Keagan Holly MDTriglyceride [Mass/Vol]181 mg/dLHigh<150Quest DiagnosticsComment on above:Order Comment: FASTING:YES FASTING: YESPerformed By: #### 6399, 7600, 97958 #### [facility] [address], [address] [place] [address] [employer]: Keagan Holly MDVITAMIN D,25-OH,TOTAL,IAon 09-25-0051ARZBYAY D,25-OH,TOTAL,IA35 ng/eZEgrvdb31-026Cxhoi DiagnosticsComment on above:Result Comment: Vitamin D Status 25-OH Vitamin D: Deficiency: <20 ng/mL Insufficiency: 20 - 29 ng/mL Optimal: > or = 30 ng/mL For 25-OH Vitamin D testing on patients on D2-supplementation and patients for whom quantitation of D2 and D3 fractions is required, the QuestAssureD(TM) 25-OH VIT D, (D2,D3), LC/MS/MS is recommended: order code 46023 (patients >2yrs). See Note 1 Note 1 For additional information, please refer to http://education.[employer]/faq/JBN308 (This link is being provided for informational/ educational purposes only.)Performed By: #### 6399, 7600, 07334 #### [facility] [address], [address] [place], [place] [id number] [employer]: Keagan LOAIZAR DEXA AXIAL SKELETONon 19-32-5094Ps[address] [address] XRay Report Signed Patient: BERENICE SILVA MR#: [id number] : 1945 Acct:[id number] Age/Sex: 78 / F ADM Date: 02/26/24 Loc: RAD Attending Dr: NICKY RIDDLE Ordering Physician: NICKY RIDDLE Date of Service: 02/26/24 Procedure(s): XR DEXA axial skeleton Accession Number(s): [id number] cc: KVNG LINTON ; NICKY RIDDLE [address] [address] Patient Name: BERENICE SILVA MRN: [facility]:[id number] date: 1945 Sex: F Assigned Patient Location: [facility] Current Patient Location: [facility] Accession/Order Number: [id number] Exam Date: 02/26/2024 11:05 Report Date: 02/26/2024 [...] have osteopenia or low BMD [12, 13]. Britni Cronin MS SL, Lorena KL, Prasanna EM, Erik KG, AJ, Nick ES. The clinician's guide to prevention and treatment of osteoporosis. Osteoporos Int. 2021;3310):7522-8981. doi: 10.1007/e37665-440-36758-l. Epub 2021Nov 16. Erratum in: Osteoporos Int. 2021Feb 15;: PMID: 31188836; PMCID: [id number]. Electronically authenticated by: HALEIGH FINE Date: 02/26/2024 11:36 Dictated By: Haleigh Fine M.D. Signed By: 02/26/24 1139 DD/ 1136 TD/TT: Otr Tanker Truck Driver:AKSHATHRadiology, Radiologist, - 02/26/2024 [place] [address] XRay Report Signed Patient: BERENICE SILVA MR#: [id number] : 1945 Acct:[id number] Age/Sex: 78 / F ADM Date: 02/26/24 Loc: [facility] Attending Dr: NICKY RIDDLE Ordering Physician: NICKY RIDDLE Date of Service: 02/26/24 Procedure(s): XR DEXA axial skeleton Accession Number(s): [id number] cc: KVNG LINTON ; NICKY RIDDLE [place] [address] Patient Name: BERENICE SILVA MRN: [facility]:[id number] date: 1945 Sex: F Assigned Patient Location: [facility] Current Patient Location: [facility] Accession/Order Number: [id number] Exam Date: 02/26/2024 11:05 Report Date: 02/26/2024 [...] prevention and treatment of osteoporosis. Osteoporos Int. 2021;33(10):3239-0393. doi: 10.1007/y49178-989-88200-r. Epub 2021Nov 16. Erratum in: Osteoporos Int. 2021Feb 15;: PMID: [id number]; PMCID: [id number]. Electronically authenticated by: HALEIGH FINE Date: 02/26/2024 11:36 Dictated By: Haleigh Fine M.D. Signed By: 02/26/24 1139 DD/ 1136 TD/TT: Otr Tanker Truck Driver: TAM [facility] HospitalRadiology Study observation (narrative)[facility] [employer]XR DEXA AXIAL SKELETONOrdered By: Radiologist Radiology on 86-40-0309OPNX [employer] Work Phone: ct COLONOGRAPHY SCREENINGon 26-10-4818MW COLONOGRAPHY SCREENINGCT COLONOGRAPHY SCREENING CLINICAL INFORMATION: Constipation, unspecified constipation [...] the sigmoid colon. Despite prone and supine imaging,short segment of mid sigmoid colon remained incompletely [...] presence or absence of which will not tire changer aircraft of the patient. In addition, digital rectal [...] significant in the mid sigmoid colon, short segmentof concentric bowel wall thickening incompletely characterized. If [...] by Haleigh Curry MD on 01/21/2024 8:17 AMNormalProMedica Deepwater HospitalCult,Bloodon 24-94-8255Wxjg,BloodSpecimen Description .BLOOD Special Requests 20ML RAC Culture NO GROWTH 5 DAYS Report Status FINAL 10/31/2023[facility] HospitalComment on above: Performed By: #### KEVIN #### [address] [place] [address] Water Pump Servicer: Triny Buckner,BloodSpecimenader Description .BLOOD Special Requests 20ML LFT WRIST Culture NO GROWTH 5 DAYS Report Status FINAL 10/31/2023NoPremier Health Miami Valley Hospital NorthComment on above: Performed By: #### KEVIN #### [address] [place] [address] Water Pump Servicer: KAMALA Buckner with Diffon 40-74-5463Yvu. Basophil0.03 k/uL Normal0.00-0.20[facility] HospitalComment on above:Performed By: #### OZ #### [address] [place], [place] [address] Water Pump Servicer: Vito Buckner.Imm.Granulocyte0.03 k/uLNormal0.00-0.30[facility] HospitalComment on above:Performed By: #### OZ #### [address] [place] [address] Water Pump Servicer: Vito Buckner.Neutrophil (Seg)7.25 k/uLNormal1.50-8.10[facility] HospitalComment on above:Performed By: #### LACDS #### [address] [place] [address] Water Pump Servicer: Ayden Regan MDBasophils/100 WBC (Bld)0 %Normal0-2[facility] HospitalComment on above:Performed By: #### LACDS #### [address] [place] [address] Water Pump Servicer: Ayden Regan MDEosinophils (Bld) [#/Vol]0.04 10*3/uLNormal 0.00-0.44[facility] HospitalComment on above:Performed By: #### LACDS #### [address] [place] [address] Water Pump Servicer: WILLIAM Bucknerosinophils/100 WBC (Bld)0 %Low1-4[facility] HospitalComment on above:Performed By: #### LACDS #### [address] [place] [address] Water Pump Servicer: Ayden Regan MDErythrocyte distribution width (RBC) [Ratio]12.5 % Efujqc50.8-14.4[facility] HospitalComment on above:Performed By: #### LACDS #### [address] [place] [address] Water Pump Servicer: Ayden Regan MDHematocrit (Bld) [Volume fraction]29.2 %Low 36.3-47.1Msouthview medical centery [facility] HospitalComment on above:Performed By: #### LACDS #### [address] [place] [address] Water Pump Servicer: Ayden Regan MDHemoglobin (Bld) [Mass/Vol]9.7 g/dLLow11.9-15.1 [facility] HospitalComment on above:Performed By: #### LACSARITA #### [address] [place] [address] Water Pump Servicer: Dorothy Buckner granulocytes/100 WBC (Bld)0 %Gofexb2Kkado [facility]iffin HospitalComment on above:Performed By: #### OZ #### [address] [place], [facility]83 Water Pump Servicer: Javier Bucknermphocytes (Bld) [#/Vol]1.83 10*3/uLNormal 1.10-3.70[facility] HospitalComment on above:Performed By: #### OZ #### [address] [place] [address] Water Pump Servicer: Javier Bucknermphocytes/100 WBC (Bld)18 %Hbh08-61Sfneb [facility] HospitalComment on above:Performed By: #### OZ #### [address] [place] [address] Water Pump Servicer: WASHINGTON Buckner (RBC) [Entitic mass]30.1 kvPfefog71.2-33.5 [facility] HospitalComment on above:Performed By: #### OZ #### [address] [place], [facility]83 Water Pump Servicer: WASHINGTON BucknerC (RBC) [Mass/Vol]33.2 g/gLTdxrwy38.4-34.8[facility] HospitalComment on above:Performed By: #### OZ #### [address] [place], [place] [address] Water Pump Servicer: MOISE BucknerCV (RBC) [Entitic vol]90.7 oOStkmtn91.6-102.9 [facility] HospitalComment on above:Performed By: #### OZ #### [facility] [address] [place] [address] [place] [address] Water Pump Servicer: MOISE Buckneronocytes (Bld) [#/Vol]1.02 10*3/uLNormal0.10-1.20 [facility] HospitalComment on above:Performed By: #### LACDS #### [address] [place] [address] Water Pump Servicer: MOISE Buckneronocytes/100 WBC (Bld)10 %Normal3-12[facility] HospitalComment on above:Performed By: #### LACSARITA #### [address] [place] [address] Water Pump Servicer: Ryan Bucknerutrophil (Seg)71 %Uvxq54-21GfjnyOur Lady Of [facility] Hospital Comment on above:Performed By: #### OZ #### [address] [place] [address] Water Pump Servicer: Ayden Regan MDNRBC Automated0.0 per 100 WBCNormal0.0[facility] HospitalComment on above:Performed By: #### LACSARITA #### [address] [place] [address] Water Pump Servicer: Humera Bcukner mean volume (Bld) [Entitic vol]8.7 fL Normal8.1-13.5[facility] HospitalComment on above:Performed By: #### LACDS #### [address] [place] [address] Water Pump Servicer: CHRIS Bucknerlatelets (Bld) [#/Vol]237 10*3/pXKnagmw698-013 [facility] HospitalComment on above:Performed By: #### LACDS #### [address] [place], [place] [address] Water Pump Servicer: DESTINEE BucknerBC (d) [#/Vol]3.22 10*6/uLLow3.95-5.11[facility] HospitalComment on above:Performed By: #### OZ #### [address] [place], [place] [address] Water Pump Servicer: Ayden Regan MDWBC (Bld) [#/Vol]10.2 10*3/uLNormal3.5-11.3Msouthview medical centery [facility] HospitalComment on above:Performed By: #### OZ #### [address] [place], [place] [address] Water Pump Servicer: JOSHUA Buckneromp Metabolic Pr/rfx MGon 65-43-8362Obwufkf [Mass/Vol]3.1 g/dLLow3.5-5.2[facility]ercSub[facility] HospitalComment on above:Performed By: #### OZ #### [address] [place], [place] [address] Water Pump Servicer: Ayden Regan MDAlbumin/Glob Ratio1.9Chivqf1.0-2.5[facility] HospitalComment on above:Performed By: #### OZ #### [address] [place], [place] [address] Water Pump Servicer: Linda Bucknerline Phos80 U/LPieatn53-088Fdaxh [facility]iffin HospitalComment on above:Performed By: #### OZ #### [facility] [address] [place] [address] Dr[place], [place] [address] Water Pump Servicer: Ayden Regan MDALT [Catalytic activity/Vol]9 U/LNormal5-33[facility] HospitalComment on above:Performed By: #### OZ #### [address] [place], [place] [address] Water Pump Servicer: Ayden Sturtz, MDAnion gap [Moles/Vol]8 mmol/LLow9-17[facility] HospitalComment on above:Performed By: #### LACDS #### [address] [place] [address] Water Pump Servicer: Ayden Regan MDAST [Catalytic activity/Vol]13 U/LNormal<32[facility] HospitalComment on above:Performed By: #### LACDS #### [address] [place] [address] Water Pump Servicer: Ayden Regan MDBilirubin [Mass/Vol]0.6 mg/dLNormal0.3-1.2[facility] HospitalComment on above:Performed By: #### LACDS #### [address] [place] [address] Water Pump Servicer: Ayden Regan MDBUN/CRE Adprc05Mhsjsb5-62Vkndt [facility] Comment on above:Performed By: #### LACDS #### [address] [place] [address] Water Pump Servicer: JOSHUA Buckneralcium [Mass/Vol]8.2 mg/dLLow8.6-10.4Mer[facility] HospitalComment on above:Performed By: #### LACDS #### [address] [place] [address] Water Pump Servicer: JOSHUA Bucknerhloride [Moles/Vol]106 mmol/FElxsao12-631Njmeu [facility] HospitalComment on above:Performed By: #### LACDS #### [address] [place] [address] Water Pump Servicer: Ayden Regan MDCO2 [Moles/Vol]26 mmol/FZzfcpr92-20Oinxz [facility] HospitalComment on above:Performed By: #### LACDS #### [address] [place] [address] Water Pump Servicer: JOSHUA Bucknerreatinine [Mass/Vol]0.7 mg/dLNormal0.5-0.9[facility] HospitalComment on above:Performed By: #### LACDS #### [address] [place] [address] Water Pump Servicer: Ayden Regan MDGFR/1.73 sq M.predicted among non-blacks MDRD (S/P/Bld) [Vol rate/Area]mL/min/{1.73_m2}Normal>60MerBackus HospitalComment on above:Result Comment: These results are not intended for [...] or following therapy that affects renal tubular secretion.Performed By: #### LACDS #### [address] [place] [address] Water Pump Servicer: Ayden Regan MDGlucose [Mass/Vol]97 mg/mQJjjyhk68-28Whapr Sharon HospitalComment on above:Performed By: #### LACDS #### [address] [place] [address] Water Pump Servicer: Ayden Regan MDPotassium [Moles/Vol]3.6 mmol/LLow3.7-5.3[facility] HospitalComment on above:Performed By: #### LACDS #### [address] [place] [address] Water Pump Servicer: Ayden Regan MDProtein [Mass/Vol]5.4 g/dLLow6.4-8.3[facility] HospitalComment on above:Performed By: #### LACDS #### [address] [place] [address] Water Pump Servicer: BRITTNEY Bucknerodium [Moles/Vol]140 mmol/IKvkgtq212-478WtpgyOur Lady Of Mercy HospitalComment on above:Performed By: #### LACDS #### [facility] [address] [place] [address] Water Pump Servicer: Ayden Regan MDUrea nitrogen [Mass/Vol]11 mg/dLNormal8-23[facility] HospitalComment on above:Performed By: #### LACDS #### [facility] [address] [place] [address] Dr[place], [place] [id number] Water Pump Servicer: Ayden Regan MDCult,Urineon [id number],UrineSpecimen Description .URINE,STRAIGHT CATHETER Culture STREPTOCOCCI, BETA HEMOLYTIC GROUP B 10 to 50,000 CFU/ML Report Status FINAL 10/27/2023NormalOur Lady Of Mercy HospitalComment on above: Performed By: #### URC #### [facility] [address] [place], [place] [id number] Water Pump Servicer: Nahum Nixon MD [address] [place] [address] Water Pump Servicer: CHRIS Bucknerrocalcitoninon 19-86-5752Ovbugtnwdekit6.06 ng/mL Normal0.00-0.09Our [facility] Of Mercy HospitalComment on above:Result Comment: Suspected Sepsis: <0.50 ng/mL Low likelihood [...] entered into the Change in Procalcitonin Calculator ([email or web address]) to determine the patient's Mortality Risk Prognosis In healthy neonates, plasma Procalcitonin (PCT) concentrations increase gradually after , reaching peak values at about 24 hours of age then decrease to normal values below 0.5 ng/mL by 48-72 hours of age.Performed By: #### PRCAL #### [id number] [place], [place] [id number] Water Pump Servicer: Nahum Nixon [facility] with Diffon 71-75-6227Omw. Basophil0.04 k/uL Normal0.00-0.20[facility] HospitalComment on above:Performed By: #### BRETT HI, CP #### [address] [place] [id number] ( Water Pump Servicer: Vito Buckner.Imm.Granulocyte0.04 k/uLNormal0.00-0.30[facility] HospitalComment on above:Performed By: #### BRETT HI, CP #### [address] [place], [facility]83 Water Pump Servicer: Vito Buckner.Neutrophil (Seg)9.87 k/uLHigh1.50-8.10[facility] HospitalComment on above:Performed By: #### BRETT HI, CP #### [address] [place], [place] [address] Water Pump Servicer: Ayden Regan MDBasophils/100 WBC (Bld)0 %Normal0-2[facility] HospitalComment on above:Performed By: #### BERTT HI, CP #### [address] [place], [facility]83 Water Pump Servicer: Ayden Regan MDEosinophils (Bld) [#/Vol]0.06 10*3/uLNormal 0.00-0.44[facility] HospitalComment on above:Performed By: #### BRETT HI, CP #### [address] [place], [place] [address] Water Pump Servicer: Ayden Regan MDEosinophils/100 WBC (Bld)1 %Normal1-4Our [facility] Mercy HospitalComment on above:Performed By: #### BRETT HI, CP #### [address] [place], [place] [address] Water Pump Servicer: Ayden Regan MDErythrocyte distribution width (RBC) [Ratio]12.1 % Kzqwfw78.8-14.4Our [facility] Mercy HospitalComment on above:Performed By: #### BRETT HI, CP #### [address] [place] [address] Water Pump Servicer: Ayden Regan MDHematocrit (Bld) [Volume fraction]37.2 %Normal 36.3-47.1MSelect Medical Specialty Hospital - YoungstownComment on above:Performed By: #### BRETT HI, CP #### [address] [place], [place] [address] Water Pump Servicer: Ayden Regan MDHemoglobin (Bld) [Mass/Vol]12.6 g/dLNormal 11.9-15.1MSelect Medical Specialty Hospital - YoungstownComment on above:Performed By: #### BRETT HI, CP #### [address] [place], [place] [address] Water Pump Servicer: Ayden Regan MDImmature granulocytes/100 WBC (Bld)0 %Vlndry2FbjkpOur Lady Of Mercy HospitalComment on above:Performed By: #### BRETT HI, CP #### [address] [place], [place] [address] Water Pump Servicer: Ayden Regan MDLymphocytes (Bld) [#/Vol]0.81 10*3/uLLow1.10-3.70 [facility] HospitalComment on above:Performed By: #### BRETT HI, CP #### [address] [place] [address] Water Pump Servicer: Javier Bucknermphocytes/100 WBC (Bld)7 %Iwn56-66UqnenOur Lady Of Mercy HospitalComment on above:Performed By: #### BRETT HI, CP #### [address] [place] [address] Water Pump Servicer: MOISE BucknerCH (RBC) [Entitic mass]30.4 yoVhfywq65.2-33.5 [facility] HospitalComment on above:Performed By: #### BRETT HI, CP #### [address] [place] [address] Water Pump Servicer: WASHINGTON BucknerC (RBC) [Mass/Vol]33.9 g/xTUfwdar29.4-34.8[facility] HospitalComment on above:Performed By: #### BRETT IH, CP #### [address] [place], [facility]83 Water Pump Servicer: MOISE BucknerCV (RBC) [Entitic vol]89.9 qWZiqhuv16.6-102.9 [facility] HospitalComment on above:Performed By: #### BRETT HI, CP #### [address] [place], [facility]83 Water Pump Servicer: MOISE Buckneronocytes (Bld) [#/Vol]0.89 10*3/uLNormal0.10-1.20 [facility] HospitalComment on above:Performed By: #### BRETT HI, CP #### [address] [place] [address] Water Pump Servicer: MOISE Buckneronocytes/100 WBC (Bld)8 %Normal3-12Our [facility] Mer[facility] HospitalComment on above:Performed By: #### BRETT HI, CP #### [facility] [address] [place] [address] [place] [address] Water Pump Servicer: Beni Buckner (Seg)84 %Ndbx84-18RnchtOur Lady Of Mercy Hospital Comment on above:Performed By: #### BRETT HI, CP #### [address] [place], [facility]83 Water Pump Servicer: CECELIA Buckner Automated0.0 per 100 WBCNormal0.0Our [facility] Mer[facility] HospitalComment on above:Performed By: #### BRETT HI, CP #### [address] [place], [facility]83 Water Pump Servicer: Humera Buckner mean volume (Bld) [Entitic vol]8.5 fL Normal8.1-13.5[facility] Mer[facility] HospitalComment on above:Performed By: #### BRETT HI, CP #### [address] [place] [address] Water Pump Servicer: Patrick Buckner (Bld) [#/Vol]312 10*3/uRYxzrst555-975 [facility] HospitalComment on above:Performed By: #### BRETT HI, CP #### [address] [place] [address] Water Pump Servicer: KELLY Buckner (Bld) [#/Vol]4.14 10*6/uLNormal3.95-5.11[facility] HospitalComment on above:Performed By: #### BRETT HI, CP #### [address] [place] [address] Water Pump Servicer: OMAR Buckner (Bld) [#/Vol]11.7 10*3/uLHigh3.5-11.3[facility] Sharon HospitalComment on above:Performed By: #### BRETT HI, CP #### [facility] [address] [place] [address] Water Pump Servicer: Ayden Regan MDCT HEAD WO CONTRASTon [id number] HEAD WO CONTRASTEXAMINATION: CT OF THE HEAD WITHOUT CONTRAST 10/26/2023 [...] Signed by: Seven Moreno MD 10/26/23 Final resultNormalMerBackus HospitalComp Metabolic Profon 88-51-5644Uzsjbog [Mass/Vol]3.9 g/dLNormal3.5-5.2[facility] HospitalComment on above:Performed By: #### BRETT HI, CP #### [facility] [address] [place] [address] Water Pump Servicer: Ayden Regan MDAlbumin/Glob Ratio1.9Lkucvi0.0-2.5[facility] HospitalCommclaren port huron hospital on above:Performed By: #### BRETT HI, CP #### [facility] [address] [place] [address] Water Pump Servicer: Sujey Buckner Phos87 U/RMnddfu64-493Dvyno [facility]iff[facility] HospitalComment on above:Performed By: #### BRETT HI, CP #### [address] [place], [place] [address]83 Water Pump Servicer: Ayden Regan MDALT [Catalytic activity/Vol]12 U/LNormal5-33[facility] HospitalComment on above:Performed By: #### BRETT HI, CP #### [address] [place] [address] Water Pump Servicer: Ayden Regan MDAnion gap [Moles/Vol]9 mmol/LNormal9-17[facility] HospitalComment on above:Performed By: #### BRETT HI, CP #### [address] [place], [place] [address] Water Pump Servicer: Ayden Regan MDAST [Catalytic activity/Vol]15 U/LNormal<32MerBackus HospitalComment on above:Performed By: #### BRETT HI, CP #### [address] [place], [place] [address] Water Pump Servicer: Ayden Regan MDBilirubin [Mass/Vol]0.4 mg/dLNormal0.3-1.2MercGriffin HospitalComment on above:Performed By: #### BRETT HI, CP #### [address] [place], [place] [address]83 Water Pump Servicer: Ayden Regan MDBUN/CRE Nruqp64Tsfbla8-59Ihtsk [facility] Comment on above:Performed By: #### BRETT HI, CP #### [address] [place] [address] Water Pump Servicer: Ayden Regan MDCalcium [Mass/Vol]9.2 mg/dLNormal8.6-10.4[facility] HospitalComment on above:Performed By: #### BRETT HI, CP #### [facility] [address] [place], [place] [address] Water Pump Servicer: JOSHUA Bucknerhloride [Moles/Vol]95 mmol/VUpn87-818NpmcaOur Lady Of Mercy HospitalComment on above:Performed By: #### BRETT HI, CP #### [facility] [address] [place], [place] [address] Water Pump Servicer: JOSHUA BucknerO2 [Moles/Vol]26 mmol/TUvjrod91-55YmsomOur Lady Of Mercy HospitalComment on above:Performed By: #### BRETT HI, CP #### [address] [place], [place] [address]783 Water Pump Servicer: JOSHUA Bucknerreatinine [Mass/Vol]0.8 mg/dLNormal0.5-0.9[facility] HospitalComment on above:Performed By: #### BRETT HI, CP #### [address] [place], [place] [address] Water Pump Servicer: Ayden Regan MDGFR/1.73 sq M.predicted among non-blacks MDRD (S/P/Bld) [Vol rate/Area]77 mL/min/{1.73_m2}Normal>60[facility] Comment on above:Result Comment: These results are not intended for [...] or following therapy that affects renal tubular secretion.Performed By: #### BRETT HI, CP #### [address] [place], [place] [address]83 Water Pump Servicer: Ayden Regan MDGlucose [Mass/Vol]119 mg/gHJwza93-52Clkcq [facility] HospitalComment on above:Performed By: #### BRETT HI, CP #### [address] [place], [place] [address]383 Water Pump Servicer: CHRIS Bucknerotassium [Moles/Vol]3.8 mmol/LNormal3.7-5.3[facility] HospitalComment on above:Performed By: #### BRETT HI, CP #### [address] [place] [address] Water Pump Servicer: Ayden Regan MDProtein [Mass/Vol]7.2 g/dLNormal6.4-8.3MClermont County Hospital HospitalComment on above:Performed By: #### BRETT HI, CP #### [address] [place], [facility]83 Water Pump Servicer: Ayden Regan MDSodium [Moles/Vol]130 mmol/LVgy110-972Pxgiy [facility]in HospitalComment on above:Performed By: #### BRETT HI, CP #### [address] [place], [place] [address]83 Water Pump Servicer: Ayden Regan MDUrea nitrogen [Mass/Vol]13 mg/dLNormal8-23[facility] HospitalComment on above:Performed By: #### BRETT HI, CP #### [address] [place], [facility]83 Water Pump Servicer: Griselda Bucknerctate, Sepsison 69-37-6082Nhqmuj Acid, Sepsis1.0 mmol/LNormal0.5-1.9[facility] HospitalComment on above:Performed By: #### LACDS #### [address] [place], [place] 197[address]83 Water Pump Servicer: Griselda Bucknerctic Acid, Sepsis1.6 mmol/LNormal0.5-1.9[facility] HospitalComment on above:Performed By: #### LACDS #### [facility] [address] [place] [address] Water Pump Servicer: Salvador Buckner 39-91-1662Eivqkbue, High Sens12 ng/L Normal0-14[facility] HospitalComment on above:Result Comment: High Sensitivity Troponin values cannot be compared with other Troponin methodologies.Performed By: #### LACDS #### [facility] [address] [place] [address] Water Pump Servicer: Harvinder Buckner, High Sens12 ng/LNormal0-14[facility] HospitalComment on above:Result Comment: High Sensitivity Troponin values cannot be compared with other Troponin methodologies.Performed By: #### TROPI, CDP, CP #### [facility] [address] [place] [address] [place] [address] Water Pump Servicer: Rachel Buckneris w/ Microon 69-96-7668Qnqyxgymr, SemiQt,UrNegativeNormalNEGOur Lady Of Mercy HospitalComment on above:Performed By: #### LACDS #### [facility] [address] [place] [address] [place] [address] Water Pump Servicer: Morales Buckner, UrineNegativeNormalNEGOur Lady Of Mercy Hospital Comment on above:Performed By: #### LACDS #### [facility] [address] [place] [address] Water Pump Servicer: JOSHUA Bucknerlarity ()ClearNormalCLEAROur Lady Of Mercy Hospital Comment on above:Performed By: #### LACDS #### [facility] [address] [place], [place] [address] Water Pump Servicer: JOSHUA Bucknerolor (U)YellowNormalYELMerBackus Hospital Comment on above:Performed By: #### LACDS #### [facility] [address] [place] [address] Water Pump Servicer: Ayden Regan MDEpithelial cells LM Ql (Urine sed)0 TO 4Zitbzf8-36 [facility] HospitalComment on above:Performed By: #### LACDS #### [address] [place], [place] [address]83 Water Pump Servicer: Ayden Regan MDGlucose Ql (U)NegativeNormalNEGMedina Hospital HospitalComment on above:Performed By: #### LACDS #### [address] [place] [address] Water Pump Servicer: Ayden Regan MDKetones Ql (U)NegativeNormalNEGFisher-Titus Medical Centercy [facility] HospitalComment on above:Performed By: #### LACDS #### [address] [place], [facility]83 Water Pump Servicer: Ayden Regan MDLeukocyte esterase Test strip Ql (U)NegativeNormal NEGOur Lady Of Mercy HospitalComment on above:Performed By: #### LACSARITA #### [address] [place], [place] [address] Water Pump Servicer: Ayden Regan MDNitrite,UrNegativeNormalNEGOur Lady Of Mercy Hospital Comment on above:Performed By: #### LACDS #### [facility] [address] [place] [address] Dr. [place], [place] [address] Water Pump Servicer: CHRIS Buckner,Ur6.5Pumxtx9.0-9.0Fisher-Titus Medical Centercy Sharon HospitalComment on above:Performed By: #### LACDS #### [address] [place], [facility]83 Water Pump Servicer: CHRIS Bucknerrotein Ql (U)NegativeNormalNEGOur Lady Of Mercy HospitalComment on above:Performed By: #### LACDS #### [facility] [address] [place] [address] Dr. [place], [facility]83 Water Pump Servicer: BRITTNEY Bucknerpec. [place],Ur1.301Xbolev0.010-1.020[facility] HospitalComment on above:Performed By: #### LACDS #### [facility] [address] [place] [address] Water Pump Servicer: Rosalie Buckner RBC'sNoneNormal0-2MSelect Medical Specialty Hospital - [place] Comment on above:Performed By: #### LACDS #### [facility] [address] [place] [address] Water Pump Servicer: Rosalie Buckner WBC'sNoneNormal0-5[facility] Comment on above:Performed By: #### LACDS #### [address] [place] [address] Water Pump Servicer: Ayden Regan MDUrobilinogen,UrNormalNormal0.0-1.0[facility] HospitalComment on above:Performed By: #### LACDS #### [facility] [address] [place] [address] [place] [address] Water Pump Servicer: TAMRA Buckner CHEST PORTABLEon 17-80-2793TY CHEST PORTABLE EXAMINATION: ONE XRAY VIEW OF [...] Signed by: Ayden Siegel MD 10/26/23 Final resultNormalOur Lady Of Mercy HospitalACID FAST SMEAR AND CXon [id number] Fast CultureNegativeNormOhioHealth Southeastern Medical Centere Lesvia HospitalComment on above:Result Comment: No acid fast bacilli isolated after 6 weeks.Performed By: #### AFB #### [facility] [address] [place] [address] Dr. Shari AllenAcid Fast SmearNegativeUC West Chester HospitalComment on above:Performed By: #### AFB #### [facility] [address] [place] [address] Dr. Shari Sierra Specimen ProcessingConcentrationUC [facility] Hospital Comment on above:Performed By: #### AFB #### [facility] [address] [place] [address] Dr. Shari Douglass CULTUREon 27-44-9836Pmuuuc (Mycology) CultureFinal report [facility] HospitalCommclaren port [facility]on hospital on above:Performed By: #### CXFUN #### [facility] [address] [place] [address] Dr. Shari Odonnell StainFinal reportNoShelby Memorial HospitalComment on above:Performed By: #### CXFUN #### [facility] [address] [place] [address] Dr. Shari Palomares 1CommentUC West Chester HospitalComment on above:Result Comment: CHINO/Calcofluor preparation: no fungus observed.Performed By: #### CXFUN #### [facility] [address] [place] [address] Dr. Shari Palomares Comment: No yeast or mold isolated after 4 weeks.CULTURE ANAEROBICon [id number] ANAEROBICCulture Observations: NO GROWTH OF ANAEROBES AT 72 HOURS.UC [facility] HospitalComment on above: Performed By: #### CXFUN #### [facility] [address] [place] [address] Dr. Shari Veronica OTHERon 35-19-6079EXNRTRX OTHERCulture Observations: Light growth of NORMAL SKIN MARTHA. Culture Observations: NO GROWTH OF ANAEROBES AT 72 HOURS.NormalAkron Children'S HospitalComment on above: Performed By: #### CXFUN #### [facility] [address] [place] [address] [address] Shari Dong STAINon 51-73-7758UARNPAQJTY ORGANISMS OBSERVEDUC West Chester HospitalComment on above:Performed By: #### GSTAIN #### [facility] [address] [place] [address] [address] Shari AllenDIPHTHEROIDSUC [facility] HospitalCommclaren port [facility]on hospital on above:Performed By: #### GSTAIN #### [facility] [address] [place] [address] [address] Shari GuerraTHELIBrecksville VA / Crille HospitalCommclaren port [facility]on hospital on above:Performed By: #### GSTAIN #### [facility] [address] [place] [address] [address] Shari HurtadoNGAL ELEMENTSUC West [facility] HospitalCommclaren port [facility]on hospital on above: Performed By: #### GSTAIN #### [facility] [address] [place] [address] [address] Shari Dong NEG [facility] Medical CenterCommclaren port [facility] hospital on above: Performed By: #### GSTAIN #### [facility] [address] [place] [address] [address] Shari Dong NEG DIPPLOCOCCIUC West [facility] HospitalCommclaren port [facility]on hospital on above: Performed By: #### GSTAIN #### [facility] [address] [place] [address] [address] Shari Dong POS BACILLIUC West [facility] HospitalCommclaren port [facility]on hospital on above: Performed By: #### GSTAIN #### [facility] [address] [place] [address] [address] Shari Dong POSITIVE COCCLakeHealth TriPoint Medical CenterCommclaren port [facility]on hospital on above: Performed By: #### GSTAIN #### [facility] [address] [place] [address] [address] Shari Dong STAIN SOURCERt 2nd ToeUC West [facility] HospitalCommclaren port huron hospital on above:Performed By: #### GSTAIN #### [facility] [address] [place] [address] [address] Shari oGmez_DIPMercy Health Perrysburg HospitalComment on above:Performed By: #### GSTAIN #### [facility] [address] [place] [address] [address] Shari AllenWBCRARENormalAkron Children'S HospitalComment on above:Performed By: #### GSTAIN #### [facility] [address] [place] [address] [address] Shari AllenPOINT OF CARE GLUCOSEon 91-66-8697Csbhara [Mass/Vol]109 mg/dL Critically dmpw25-375Rhd [facility] HospitalComment on above:Performed By: #### POCGLUC #### [facility] [address] [place] [address] [address] Shari AllenGlucose [Mass/Vol]89 mg/oZCfereg38-618MgiAkron Children'S Hospital Comment on above:Performed By: #### POCGLUC #### [facility] [address] [place] [address] Dr. Shari AllenPROF CHEM 8 (BAS METB)on 22-28-6899Bghar gap [Moles/Vol]12.2 mmol/LNormalAkron Children'S HospitalComment on above:Performed By: #### BMP #### [facility] [address] [place] [address] Dr. Shari AllenCalcium [Mass/Vol]9.3 mg/dLNormal8.5-10.1[facility] Comment on above:Performed By: #### BMP #### [facility] [address] [place] [address] Dr. Shari AllenChloride [Moles/Vol]104 mmol/QLdndar94-411MktAkron Children'S Hospital Comment on above:Performed By: #### BMP #### [facility] [address] [place] [address] [address] Shari AllenCO2 [Moles/Vol]28.5 mmol/SVnzmln45.0-32.0[facility] Comment on above:Performed By: #### BMP #### [facility] [address] [place] [address] Dr. Shari AllenCreatinine [Mass/Vol]0.83 mg/dLNormal0.55-1.02The [facility] HospitalComment on above:Performed By: #### BMP #### [facility] [address] [place] [address] [address] Shari HyattGFR-AF LITHUANIAN>60Normal>=60The [facility] HospitalComment on above:Performed By: #### BMP #### [facility] [address] [place] [address] [address] Shari HyattGFR-NON AF LITHUANIAN>60Normal>=60The [facility] HospitalComment on above:Performed By: #### BMP #### [facility] [address] [place] [address] [address] Shari AllenGlucose [Mass/Vol]89 mg/fNRbqjlh17-755Nmh [facility] Comment on above:Performed By: #### BMP #### [facility] [address] [place] [address] [address] Shari AllenPotassium [Moles/Vol]3.7 mmol/LNormal3.5-5.1[facility] Comment on above:Performed By: #### BMP #### [facility] [address] [place] [address] [address] Shari AllenSodium [Moles/Vol]141 mmol/YQixbcl162-048MynAkron Children'S Hospital Comment on above:Performed By: #### BMP #### [facility] [address] [place] [address] [address] Shari AllenUrea nitrogen [Mass/Vol]18.0 mg/dLNormal7.0-18.0The [facility] HospitalComment on above:Performed By: #### BMP #### [facility] [address] [place] [address] [address] Shari Rey nitrogen/Creatinine [Mass ratio]21.7 mg/mgNormalThe [facility] HospitalCommclaren port huron hospital on above:Performed By: #### BMP #### [facility] [address] [place] [address] [address] Shari AllenPEWAUKEE OF [facility] GLUCOSEon 78-40-5387Bqlgzgs [Mass/Vol]86 mg/dL Eduxsn21-699Cqp [facility] HospitalComment on above:Performed By: #### POCGLUC #### [facility] [address] [place] [address] Dr. Shari AllenGlucose [Mass/Vol]95 mg/mMOocltx11-835Pgy [facility] Comment on above:Performed By: #### POCGLUC #### [facility] [address] [place] [address] Dr. Shari DallasC AUTO DIFFon 12-89-2242VVRI #0.0 103/ulNormal0.0-0.1The [facility] HospitalComment on above:Performed By: #### CBC #### [facility] [address] [place] [address] Dr. Shari AllenBasophils/100 WBC (Bld)0.5 %Normal0.2-2.0[facility] Comment on above:Performed By: #### CBC #### [facility] [address] [place] [address] Dr. Shari Zamora #0.2 103/ulNormal0.0-0.7The [facility] HospitalComment on above: Performed By: #### CBC #### [facility] [address] [place] [address] Dr. Shari Hyattosinophils/100 WBC (Bld)2.9 %Normal0.9-7.0[facility] Comment on above:Performed By: #### CBC #### [facility] [address] [place] [address] Dr. Shari Hyattrythrocyte distribution width (RBC) [Ratio]12.6 %Qktizd54.0-15.0 The [facility] HospitalComment on above:Performed By: #### CBC #### [facility] [address] [place] [address] Dr. Shari AllenHematocrit (Bld) [Volume fraction]38.2 %Axnsjv11.0-48.0The [facility] HospitalComment on above:Performed By: #### CBC #### [facility] [address] [place] [address] Dr. Yilan ChangHemoglobin (Bld) [Mass/Vol]12.4 g/qPFhdxsm77.0-16.0The [facility] HospitalComment on above:Performed By: #### CBC #### [facility] [address] [place] [address] Dr. Shari Da Silva #0.01 10e3/ulNormal0.00-0.03The [facility] HospitalComment on above:Performed By: #### CBC #### [facility] [address] [place] [address] Dr. Shari Da Silva %0.2 %Normal0.0-0.5The [facility] HospitalComment on above: Performed By: #### CBC #### [facility] [address] [place] [address] Dr. Shari Baltazar #2.0 103/ulNormal1.2-3.8The [facility] HospitalComment on above:Performed By: #### CBC #### [facility] [address] [place] [place] [address] Dr. Shari Thorntonhocytes/100 WBC (Bld)31.7 %Sqnqwi87.5-60.0The [facility] HospitalComment on above:Performed By: #### CBC #### [facility] [address] [place] [address] Dr. Shari FaustinUAL DIFF REQNONormalThe [facility] HospitalComment on above: Performed By: #### CBC #### [facility] [address] [place] [address] Dr. Shari Herrera (RBC) [Entitic mass]30.7 ntBjmrrg25.7-34.0The [facility] HospitalComment on above:Performed By: #### CBC #### [facility] [address] [place] [address] Dr. Shari Herrera (RBC) [Mass/Vol]32.5 g/uJWupgda27.9-35.2The [place] HospitalComment on above:Performed By: #### CBC #### [facility] [address] [place] [address] Dr. Shari Rodriguez (RBC) [Entitic vol]94.6 wDRfobin13.0-99.0The [facility] HospitalComment on above:Performed By: #### CBC #### [facility] [address] [place] [address] Dr. Shari Sagastume #0.5 103/ulNormal0.3-0.8The [facility] HospitalComment on above:Performed By: #### CBC #### [facility] [address] [place] [address] Dr. Shari Mcwilliamsocytes/100 WBC (Bld)8.6 %Normal1.7-12.0The [facility] Comment on above:Performed By: #### CBC #### [facility] [address] [place] [address] Dr. Shari Muniz #3.5 103/ulNormal1.4-6.5The [facility] HospitalComment on above:Performed By: #### CBC #### [facility] [address] [place] [address] Dr. Shari Adameutrophils/100 WBC (Bld)56.1 %Pmsdlj24.0-75.0The [facility] HospitalComment on above:Performed By: #### CBC #### [facility] [address] [place] [address] Dr. Shari Abarca mean volume (Bld) [Entitic vol]8.5 fLCritically low 9.5-13.5The [facility] HospitalComment on above:Performed By: #### CBC #### [facility] [address] [place] [address] Dr. Shari AllenPLT304 103/spIfzrde214-933Oam [facility] HospitalComment on above: Performed By: #### CBC #### [facility] [address] [place] [address] Dr. Shari AllenRBC4.04 106/ulCritically low4.20-5.40The [facility] HospitalComment on above:Performed By: #### CBC #### [facility] [address] [place] [address] Dr. Shari AllenWBC6.2 103/ulNormal4.0-11.0The [facility] HospitalComment on above: Performed By: #### CBC #### [facility] [address] [place] [address] Dr. Shari AllenCovid-19 PCR ([facility])on 20-69-0990USCG-CoV-2 (COVID-19) RNA LEANN+probe Ql (Unsp spec)Not detectedNormalNOT DETECTEDThe [facility] Comment on above:Result Comment: This test is not yet approved or cleared by the [place] FDA. When there are no FDA-approved or cleared tests available, and other criteria are met, FDA can make tests available under an emergency access mechanism called an Emergency Use Authorization (EUA). The EUA for this test is supported by the Sign Installer of Health and Human Service's (HHS's) declaration that circumstances exist to justify the emergency use of in vitro diagnostics for the detection and/or diagnosis of the virus that causes COVID- 19. This EUA will remain in effect (meaning [...] of clinical signs and symptoms consistent with SARS-CoV-2.Performed By: #### CXFUN #### [facility] [address] [place] [address] Dr. Shari AllenPROF CHEM 8 (BAS METB)on 81-72-9172Nbiju gap [Moles/Vol]11.1 mmol/LNormalThe [facility] HospitalComment on above:Performed By: #### BMP #### [facility] [address] [place] [address] Dr. Shari AllenCalcium [Mass/Vol]9.0 mg/dLNormal8.5-10.1[facility] Comment on above:Performed By: #### BMP #### [facility] [address] [place] [address] Dr. Shari AllenChloride [Moles/Vol]104 mmol/FVpngsk94-854Mpo [facility] Comment on above:Performed By: #### BMP #### [facility] [address] [address] [address] Shari AllenCO2 [Moles/Vol]29.7 mmol/HZfxhtu23.0-32.0The [facility] Comment on above:Performed By: #### BMP #### [facility] [address] [address] [address] Shari AllenCreatinine [Mass/Vol]0.80 mg/dLNormal0.55-1.02The [facility] HospitalComment on above:Performed By: #### BMP #### [facility] [address] [place] [address] Dr. Mccarthy ChangEGFR-AF LITHUANIAN>60Normal>=60The [facility] HospitalComment on above:Performed By: #### BMP #### [facility] [address] [place] [address] Dr. Shari HyattGFR-NON AF LITHUANIAN>60Normal>=60The [facility] HospitalComment on above:Performed By: #### BMP #### [facility] [address] [place] [address] Dr. Shari AllenGlucose [Mass/Vol]87 mg/gJUkrgog93-329Sad [facility] Comment on above:Performed By: #### BMP #### [facility] [address] [address] [address] Shari AllenPotassium [Moles/Vol]3.8 mmol/LNormal3.5-5.1The [facility] Comment on above:Performed By: #### BMP #### [facility] [address] [address] [address] Shari AllenSodium [Moles/Vol]141 mmol/CUdhztp031-948Xwk [facility] Comment on above:Performed By: #### BMP #### [facility] [address] [address] [address] Shari AllenUrea nitrogen [Mass/Vol]14.0 mg/dLNormal7.0-18.0The [facility] HospitalComment on above:Performed By: #### BMP #### [facility] [address] [address] [address] Shari AllenUrea nitrogen/Creatinine [Mass ratio]17.5 mg/mgNoShelby Memorial HospitalComment on above:Performed By: #### BMP #### [facility] [address] [address] [address] Shari Allen Vital Signs Date TimeVital SignValuePerforming ElxhdznzbHoztyzjf58-30-8135 10:110400Body nopamt334.3 cmKaren Hemmer PA Work Phone: [phone] [place], [place] [address]Epqxxeykhc96-14-5733 10:11040Body mass index (BMI) [Ratio]20.33 kg/l6Tmixr Hemmer PA Work Phone: [phone])[facility] [place], [place] [address]Akimytmuva90-65-1120 10:11-040Body .13 kgKaren Hemmer PA Work Phone: [phone])[facility] [place], [place] [address]Fvfnwunfbl75-65-8956 10:11-0400Diastolic blood cxutudec53 mm[Hg]Nicky Hemmer PA Work Phone: [phone])[facility] [place], [place] [address]Gyqyoobcge98-29-6438 10:11-0400Heart rate71 /min Nicky Hemmer PA Work Phone: [phone])[facility] [place], [place] [address]Uzcptugynb49-78-6074 10:11-0400Respiratory rate16 /minJosueen Hemmer PA Work Phone: [phone])[facility] [place], [place] [address]Ptwvbdbmsd38-09-5424 10:11-4232IyF9% (BldA) [Mass fraction]96 %Nicky Hemmer PA Work Phone: [phone])[facility] [place], [place] [address]Quvwoqsdbh34-23-6942 10:11-0400Systolic blood onahnnnt598 mm[Hg]Nicky Hemmer PA Work Phone: [phone])[facility] [place], [place] [address]Hkjtcdsroe66-27-7285 09:29-0400Body .3 cmSmychal Starr CORPORATE LAWYER Work Phone: [phone])[facility] CenterColumb[facility] HospitalHlblhctpae54-94-7736 09:29-0400Body mass index (BMI) [Ratio]20.73 kg/a8Txhcoeshree Starr CORPORATE LAWYER Work Phone: [facility] HospitalGrscaocrcd30-60-1144 09:29-0400Body xcdciv28.41 kgLolashree Starr CORPORATE LAWYER Work Phone: [facility] HospitalJbisvyuxot74-34-5908 09:29-0400Diastolic blood xkidxtrv46 mm[Hg]Tsering Starr CORPORATE LAWYER Work Phone: [phone] HospitalXjuiivhzwd37-14-3248 09:29-0400Heart rate64 /min Tsering Starr CORPORATE LAWYER Work Phone: [facility] HospitalKevqncapbh28-06-1221 09:29-0400Respiratory rate16 /minSmychal Dg CORPORATE LAWYER Work Phone: [phone] HospitalXkuafkdvdu08-02-4397 09:29-7205OlW2% (BldA) [Mass fraction]95 %Tsering Starr CORPORATE LAWYER Work Phone: [phone] HospitalRowrgiubjs73-49-9989 09:29-0400Systolic blood emvfekip355 mm[Hg]Tsering Starr CORPORATE LAWYER Work Phone: [facility] HospitalAebltlbbgx02-57-9858 09:10-0500Body jcjemk649.3 cmKaren Hemmer PA Work Phone: [phone])[facility]50[address] HospitalShjbvqihen19-45-9800 09:10-0500Body mass index (BMI) [Ratio]19.67 kg/t8Ausei Hemmer PA Work Phone: [phone] HospitalTmwdzaoocw40-46-3143 09:10-0500Body bcfkic43.96 kgKaren Hemmer PA Work Phone: [facility] HospitalQkvuinunod47-81-6129 09:10-0500Diastolic blood zuqzceas59 mm[Hg]Nicky Hemmer PA Work Phone: [phone] [place], [place] [address]Kmsymcknnz75-15-5451 09:10-0500Heart rate64 /min Nicky Hemmer PA Work Phone: [facility] HospitalJubpikkeeh69-19-5932 09:10-0500Respiratory rate16 /minKaren Hemmer PA Work Phone: [facility] HospitalCpfheouwih38-28-1399 09:10-1123LhT2% (BldA) [Mass fraction]99 %Nicky TURNER Work Phone: NOS[facility] HospitalAlcqdqivps51-25-4751 09:10-0500Systolic blood gpdoyviv838 mm[Hg]Nicky TURNER Work Phone: [facility]OS[facility] HospitalByfgvthxpj17-12-6480 15:10-0400Body jveqbj474.3 cmKvng Linton MD Work Phone: [phone] County Memorial HospitalDiahjzqsra75-60-9979 15:10-0400Body mass index (BMI) [Ratio]19.25 kg/g9SryeqaKvng Linton MD Work Phone: [phone] County Memorial HospitalZljafhurfx87-25-3929 15:10-0400Body apsjxo10.6 kg Kvng Linton MD Work Phone: [facility]OS[facility] HospitalXjadgwvuxp47-30-7608 15:10-0400Diastolic blood ixwwbzhk16 mm[Hg]Kvng Linton MD Work Phone: [phone] County Memorial HospitalXyzjxqmggc78-23-0599 15:10-0400Heart rate77 /min Kvng Linton MD Work Phone: [phone] County Memorial HospitalXaogytycvx52-87-5221 15:10-8878TgX7% (BldA) [Mass fraction]100 %Kvng Linton MD Work Phone: [facility]OS[facility] HospitalRksztwnxdg84-65-1104 15:10-0400Systolic blood lvwvukzo648 mm[Hg]Kvng Linton MD Work Phone: [facility]OS[facility] HospitalHopqmoyiac26-75-9993 11:26-0500Body ljavoc218.3 cmKvng Linton MD Work Phone: [facility]OS[facility] HospitalIjduwzztef98-81-4965 11:26-0500Body mass index (BMI) [Ratio]19.8 kg/b6LchkzqKvng Linton MD Work Phone: NOS[facility] HospitalTnfouzknng33-57-8243 11:26-0500Body .41 kgKvng Linton MD Work Phone: NOS[facility] HospitalPjlesyeodr67-97-1280 11:26-0500Diastolic blood mm[Hg]Kvng Linton MD Work Phone: noSullivan County Memorial HospitalPfowcwggwq82-88-4152 11:26-0500Heart rate61 /min Kvng Linton MD Work Phone: NOS[facility] HospitalVynpltmmxw53-66-2922 11:26-9428JyG9% (BldA) [Mass fraction]99 %Kvng Linton MD Work Phone: noSullivan County Memorial HospitalLhzmslgloh86-33-9404 11:26-0500Systolic blood pomvjlqf932 mm[Hg]Kvng Linton MD Work Phone: [facility] Encounters Encounter DateEncounter TypeCare ProviderFacilityStart: 03-16-2025 End: 61-84-2160hsklsctdxyEGPODGVG WILSONNot AvailableStart: 03-16-2025 End: 63-28-6192Cpaorn follow up visit related to original Veronika Romero MD Work Phone: [facility] DermatologyComment on above:Encounter for removal of suturesStart: 03-16-2025 End: 85-91-3076Pwbujf Riley Romero MD Work Phone: [facility]ermatologyStart: 03-16-2025 End: 63-64-9718Zqyrkb Riley Romero MD Work Phone: [facility]ermatologyStart: 03-02-2025 End: 42-14-8420Mtjftrj encounter procedureKatlin Romero MD Work Phone: [facility] DermatologyComment on above:Epidermal inclusion cyst (Primary Dx); PainStart: 03-02-2025 End: 91-10-6597ozvgdqhigtERNXHYJC WILSONNot AvailableStart: 03-02-2025 End: 06-04-0288Tdvnqo Riley Romero MD Work Phone: [facility]ermatologyStart: 03-02-2025 End: 30-42-2195Ozlqqh Riley Romero MD Work Phone: [facility] [facility]ermatologyStart: 02-23-2025 End: 80-12-7492Oboywhtarun TURNER Work Phone: [facility] [place] [facility] MedinceStart: 02-23-2025 End: 26-49-7670Iwtmcvtarun TURNER Work Phone: [facility] [place] [facility] MedinceStart: 02-23-2025 End: 78-61-3740Ctkpzao encounter Manolo TURNER Work Phone: [facility]oms [place] [facility] MedinceComment on above:Medicare annual wellness visit, subsequent (Primary Dx); ACP [...] back pain with left-sided sciatica; Left sided sciaticaStart: 02-23-2025 End: 44-68-5652wdphqnafjdRBGNT M HEMMERNot AvailableStart: 01-27-2025 End: 58-14-1786Wtptdsnbu Result EncounterGeneric External Data ProviderNOMS External Department UnsolicitedStart: 01-27-2025 End: 97-76-2101Vmfxewbpl Result EncounterGeneric External Data ProviderNOMS External Department UnsolicitedStart: 12-30-2024 End: 58-75-5538Tpypbg flowsheetAlison L Charlotte PA Work Phone: [facility] DERMStart: 12-30-2024 End: 96-78-5372Vpwmwl flowsheetAlison L Chralotte PA Work Phone: [facility] DERMStart: 12-30-2024 End: 23-66-8031Gejqsb outpatient new 30 minutesAlison L Charlotte PA Work Phone: [facility] TSR DERMComment on above:Epidermal inclusion cyst (Primary Dx); Localized tendernessStart: 12-30-2024 End: 21-03-3031zwsxvabkiaXTUETD L WINANSNot AvailableStart: 11-11-2024 End: 28-75-5881Sqmfna flowsMerlene Starr NP Work Phone: [facility] CI FMStart: 11-11-2024 End: 42-53-5991Jiwwqp rBennen Starr CORPORATE LAWYER Work Phone: [facility] FMStart: 11-11-2024 End: 97-39-2216Oxejed outpatient visit 25 minutesTsering Starr CORPORATE LAWYER Work Phone: [facility] CI FMComment on above:Essential (primary) hypertension (CMS/HCC) (Primary Dx); Rheumatoid arthritis, unspecified; Infected sebaceous glandStart: 11-11-2024 End: 54-98-7475lbrqkwwpimTVYTTV M SHIVELYNot AvailableStart: 09-18-2024 End: 58-51-0617CenmstUaywla B Berry MD Work Phone: [facility] CI FMComment on above:Primary osteoarthritis, unspecified site; Inflammatory and toxic neuropathy (CMS/HCC); Neurogenic painStart: 08-25-2024 End: 14-39-6927Xpbvjxnia encounterNicky TURNER Work Phone: [facility] FMStart: 07-30-2024 End: 33-71-0856Bsysco Lisa TURNER Work Phone: [facility] CI FMStart: 07-30-2024 End: 84-25-5811Mgygxc Lisa TURNER Work Phone: [facility] CI FMStart: 07-30-2024 End: 93-73-6581Sckdce outpatient visit 25 minutesNicky TURNER Work Phone: [facility] CI FMComment on above:Essential (primary) hypertension (CMS/HCC) (Primary Dx); Restless legs syndrome (RLS); History of sepsis; Burning sensation; Vitamin D deficiency; Snoring; Apneic episodeStart: 07-30-2024 End: 56-95-5255mlsmtozjgjVQKNR M HEMMERNot AvailableStart: 06-30-2024 End: 79-64-8413RlkxrgLlfmhd B Berry MD Work Phone: [facility] CI FMComment on above:Primary osteoarthritis, unspecified siteStart: 05-08-2024 End: 96-89-1241HidwpsXzwmv Dukles LPNNOMS CI FMComment on above:Primary osteoarthritis, unspecified siteStart: 05-04-2024 End: 34-02-0407Gvfbrr outpatient visit 15 minutesKvng Linton MD Work Phone: [facility] CI FMComment on above:Follicular cyst of skin and subcutaneous tissue (Primary Dx); Carbuncle and furuncle of trunk; Essential hypertension (CMS/HCC)Start: 05-04-2024 End: 98-66-5700jdukfyjaanYUVUJO B BERRYNot AvailableStart: 05-04-2024 End: 41-38-6090Ofrtcd Munira Linton MD Work Phone: [phone] CI FMStart: 05-04-2024 End: 98-59-1575Dtzhuc Munira Linton MD Work Phone: [facility] CI FMStart: 04-06-2024 End: 81-09-3992Qsehhuyog Sonido Linton MD Work Phone: noms CI FMStart: 03-14-2024 End: 83-87-4656Hovcaiispo and management of inpatientVERN D [facility] HospitalStart: 03-13-2024 End: 06-06-8104Lfmandyhwc and management of inpatientSEBASTIAN [facility] HospitalStart: 03-13-2024 End: 81-74-5065Bhhrktedlc and management of inpatientSEBASTIAN [facility] HospitalStart: 03-05-2024 End: 27-61-4618pmfdkusvrwAXPCYJHealthSouth [facility] HospitalStart: 02-26-2024 End: 17-58-6486Yebazpfrq Result EncounterNicky TURNER Work Phone: noms External Department UnsolicitedStart: 02-26-2024 End: 90-06-6196Vtbdbgqif Result Harry TURNER Work Phone: noms External Department UnsolicitedStart: 02-25-2024 End: 13-67-7007uvzpfwpkkiXFIBFYKJRUOSt. [facility] Start: 02-12-2024 End: 27-06-5037qmsqeamiahEAEYUFHGrays [facility] Start: 01-16-2024 End: 04-22-5632kbaeihzqkhMFEHUXSCoteau des Prairies Hospital HospitalStart: 12-20-2023 End: 78-05-9465Tfnfksbpht and management of inpatientDAVID M [facility] HospitalStart: 12-19-2023 End: 38-33-9588Dmcjdhtmvn and management of inpatientRAPID [place] E [facility] HospitalStart: 11-28-2023 End: 81-16-1017enmwngjrgjTSEICFW A [facility] Start: 10-26-2023 End: 20-44-8271Guvflmsusc and management of inpatientCHRISTOPHER D NAVEENVaishnavimyah [facility] HospitalStart: 38-40-4880enrfvzhlmnPajianvh:EU [place]kyStart: 09-04-2023 Bamboo Munira Litnon MD Work Phone: [facility] CI FMStart: 06-43-4546Zohpfz Munira Linton MD Work Phone: [facility] CI FMStart: 09-04-2023 End: 39-07-5005Vgkecopleosi care manage srvc 14 day dischargeDrosa Linton MD Work Phone: [facility] CI FMComment on above:TIA (transient ischemic attack) (Primary Dx); Urinary frequency; Dyslipidemia (CMS/HCC); Essential hypertension (CMS/HCC)Start: 11-13-2022 End: 78-29-5494stgbuaqzykBT DANIEL BERRYFacility:I3Lqmep: 11-05-2022 End: 93-62-8540soxarilgpyIB KVNG LIANETFacility:H3Npzmk: 10-22-2022 End: 59-38-8607vferxrtzcyAJ KVNG LIANETFacility:D4Owyqu: 13-16-4876Lulaqyseo for preprocedural cardiovascular examinationPETER D [facility] HospitalStart: 28-44-7948Oqarpxfnn for preprocedural laboratory examinationPETER D [facility] HospitalStart: 10-16-2022 End: 01-09-2727akjwgxijmaGW KVNG LIANETFacility:B6Gcmrf: 10-16-2022 End: 38-11-2218Ewwbssrcf for preprocedural cardiovascular examination KVNG LIANETFacility:Y9Ccvjz: 10-09-2022 End: 76-50-5673ueevdbltjdNS KVGN LIANETFacility:M8Esnbu: 09-25-2022 End: 87-06-3539zyeokwcfjlMZ KVNG LIANETFacility:N3Mgpol: 09-18-2022 End: 29-28-7565hnjnqdfvmnBQ KVNG LIANETFacility:C2Qjdsa: 07-27-2022 End: 13-02-2699wgppmkmkhvEX KVNG LIANETFacility:Z5Gdqiz: 06-19-2022 End: 61-13-8565bidhdsmtnlZC KVNG LIANETFacility:V4Wkjhe: 06-01-2022 End: 19-17-6415dtwfyogxbrWUXDX D HIGHLANDERFacility:Z6Uawjt: 05-25-2022 End: 34-29-6025qrsiekkwpdUQJZV D HIGHLANDERFacility:P1Mttlq: 05-18-2022 End: 83-34-1452vleiqmaxtwHDBAW D HIGHLANDERFacility:O5Lzggk: 05-10-2022 End: 08-50-1147dcgevfhwwgMALGT D HIGHLANDERFacility:M3Mpnzu: 05-07-2022 End: 45-37-1209groyteamtiFTCPW D HIGHLANDERFacility:T3Jafuo: 05-02-2022 End: 36-12-6746axhlgirrgcHSPLN D HIGHLANDERFacility:W1Qiexu: 04-30-2022 End: 32-19-8962lqluweaicwZCSYQ D HIGHLANDERFacility:B5Hsvym: 03-23-2022 End: 82-26-2289btjcfkwuplRVHWC D HIGHLANDERFacility:E8Mfoby: 03-16-2022 End: 56-54-7225rascrxphusZCOVF D HIGHLANDERFacility:X0Ghgoa: 03-02-2022 End: 71-84-7199owxlpwyedkCOLHW D HIGHLANDERFacility:A8Aobxv: 02-23-2022 End: 53-16-3993yvwlivprwdREOMX D HIGHLANDERFacility:E4Cnhir: 01-26-2022 End: 62-36-4820gufuarxrwkICKKT D HIGHLANDERFacility:W7Qdufj: 01-18-2022 End: 57-34-5788vrsaqcygklWHTJX D HIGHLANDERFacility:C5Ifmmr: 01-11-2022 End: 08-31-3327mqbuuwrdsoWPTIT D HIGHLANDERFacility:N5Lzjkg: 01-04-2022 End: 79-74-3090edtmidwmmpQO KVNG BERRYFacility:X7Fyoze: 37-10-3892hejcmfcyfhGF KVNG LINTONFacility:H1 Procedures DateProcedureProcedure DetailPerforming ClinicianStart: 00-51-1910QGJDJULIETTE Romero MD Work Phone: Start: 67-88-5032QOOGJULIETTE Romero MD Work Phone: Start: 17-06-8320VR FOOT RT MIN 3VGeneric External Data ProviderStart: 12-49-3605XG DEXA AXIAL SKELETONNicky TURNER Work Phone: Start: 73-12-6683Vwcimt-up visitFollow-upMICHAEDes Chris LUCY Plan of Treatment DateCare ActivityDetailAuthorStart: 08-05-2026Medicare Annual Wellness (AWV) Medicare Annual Wellness (AWV)[facility] HealthcareStart: 92-09-0631Zpwiznupd for malignant neoplasm of colonNOMS HealthcareStart: 32-65-3041Nqlusbxsb vaccination [facility] HealthcareStart: 03-16-2025 End: 97-01-2174Drvmsqy encounter nofrsauqn69/26/2025 3:30 PM EDT Office Visit [facility] [address] [place] [phone] Katlin Romero MD [address] [place] [address] [facility]ermatologyStart: 03-02-2025 End: 43-92-1708Hqlaxap encounter procedureNOMS SWS DERMComment on above:Arrived Start: 02-23-2025 End: 57-61-3027Jpbpyuq encounter wcxagpoza15/05/2025 10:00 AM EDT Office Visit [facility] [address] [place] [phone] Nicky Riddle PA [address] [place] [address] ArrivedNOMS [place] Family MedinceComment on above:ArrivedStart: 07-18-2025Medicare Annual Wellness (AWV)Medicare Annual Wellness (AWV)[facility] HealthcareStart: 01-06-2025 End: 59-85-8814Yicfgfl encounter etfuzpant37/18/2025 11:00 AM EDT Office Visit [facility] [address] [place] [phone] Tsering Starr, CORPORATE LAWYER [address] [place] [address] [facility] CI FMStart: 12-30-2024 End: 17-17-0753Kiszhrt encounter /11/2025 12:50 PM EDT Office Visit [facility] [address] [place] [address] Anival Gilman, PA [address] [place], [place] [id number] ArrivedNOMS TSR DERMComment on above:ArrivedStart: 11-23-2024 End: 93-55-4330Zfytqxu encounter fcnyqizic26/05/2025 4:00 PM EDT Office Visit [facility] [address] [place] [address] Kvng Linton MD [address] [place] [address] [facility] CI FMStart: 11-11-2024 End: 80-66-1423Qrhpzfn encounter dnrbukrik07/23/2025 9:30 AM EDT Office Visit [facility] [address] [place] [address] Tsering Starr, CORPORATE LAWYER [address] [place] [address] ArrivedNOMS CI FMComment on above:ArrivedStart: 08-03-2024 End: 46-56-4362Llxliqu encounter procedureNOMS CI FMStart: 07-30-2024 End: 966388-rrlhzzyugafqhv D3 [Mass/volume] in Serum or PlasmaVitamin D 25 hydroxy Total Lab Routine Vitamin D deficiency Expected: 07/30/2024 (Approximate), Expires: 07/30/2025[facility] HealthcareComment on above:Expected: 07/30/2024 (Approximate), Expires: 07/30/2025Start: 07-30-2024 End: 28-09-6579OAN W Auto Differential panel - BloodCBC and differential Lab Routine Essential (primary) hypertension (CMS/HCC) History of sepsis Expected: 07/30/2024 (Approximate), Expires: 07/30/2025[facility] Work Phone: Comment on above:Expected: 07/30/2024 (Approximate), Expires: 07/30/2025Start: 07-30-2024 End: 88-65-2058Wropejwiewmpn metabolic 2000 panel - Serum or PlasmaComprehensive metabolic panel Lab Routine Essential (primary) hypertension (CMS/HCC) Expected: 07/30/2024 (Approximate), Expires: 07/30/2025[facility] HealthcareComment on above:Expected: 07/30/2024 (Approximate), Expires: 07/30/2025Start: 07-30-2024 End: 87-70-1252Ykuzz 1996 panel - Serum or PlasmaLipid panel Lab Routine Essential (primary) hypertension (CMS/HCC) Expected: 07/30/2024 (Approximate), Expires: 07/30/2025[facility] HealthcareComment on above:Expected: 07/30/2024 (Approximate), Expires: 07/30/2025Start: 07-30-2024 End: 73-05-2671Qegwoac encounter fvenxmpep78/09/2025 9:00 AM EST Office Visit [facility] [address] [facility] [address] [place] [address] Nicky Riddle PA [address] [facility] [address] [place] [address] ArrivedNOMS CI FMComment on above:ArrivedStart: 05-04-2024 End: 00-81-1969Cbzmpyk encounter kokmpiydg20/14/2024 3:15 PM EDT Office Visit [facility] [address] [facility] [address] [place] [address] Kvng iLnton MD [address] [facility] [address] [place] [address] ArrivedNOMS CI FMComment on above:ArrivedStart: 03-22-2024 Influenza vaccinationInfluenza Vaccine (#1)[facility] HealthcareStart: 09-04-2023 End: 89-46-5994Hcbuvaqveyrtnm 2D completeEchocardiogram 2D complete Echocardiography Routine TIA (transient ischemic attack) Expected: 09/04/2023 (Approximate), Expires: 09/04/2025[facility] [facility] Work Phone: Comment on above:Expected: 09/04/2023 (Approximate), Expires: 09/04/2025Start: 09-04-2023 End: 75-72-3935Wujsxwh encounter zsiuouzou55/14/2024 11:30 AM EST Office Visit [facility] CI [address] [facility] [address] [place] [id number] Kvng Linton MD [address] [facility] [address] [place] [address] ArrivedNOMO CI FMComment on above:ArrivedStart: 05-07-2023 Medicare Annual Wellness (AWV)Medicare Annual Wellness (AWV)[facility] Start: 01-77-7791Vhcgcfzhb vaccinationInfluenza Vaccine (#1)[facility] Start: 94-88-4614Mgiflqsej for malignant neoplasm of colonColumbia [facility] Hospital Dermatopathology examDermatopathology exam Pathology and Cytology Timed Epidermal inclusion cyst Release Upon Ordering for 1 Occurrences starting 03/02/2025[facility] Work Phone: comment on above:Release Upon Ordering for 1 Occurrences starting 03/02/2025 Immunizations Immunization DateImmunizationNotesCare TgubiulnBgendoak65-74-6921Gcayupvtt, High-dose Seasonal, Quadrivalent, Preservative Marleny Linton MD Work Phone: [facility] HospitalXvfwcweiyi15-46-8093rzwxtuwud virus vaccine, unspecified formulationKvng Linton MD Work Phone: [facility] HospitalRcztwqqakd12-83-9497jhdxwvraw, high dose seasonal, preservative-Marleny Linton MD Work Phone: [facility] HospitalUldjrznere37-46-9668Nbzghgjhe, High-dose Seasonal, Quadrivalent, Preservative Marleny Linton MD Work Phone: [phone] [place], [place] [address]Mlmrfyjfqz41-86-4826ehrowmpzbzab conjugate vaccine, 13 valKimi Linton MD Work Phone: [phone] [place], [place] [address]Tkkzgxckgh59-97-9970ikdlxlbcn, high dose seasonal, preservative-Marleny Linton MD Work Phone: [phone] [place], [place] [address]Wvvhgzobvo91-08-7016gxvxuuaympau polysaccharide vaccine, 23 Blanca Linton MD Work Phone: [phone]-[address] [place], [place] [address]Nsknrpquat01-60-0556totukkths, high dose seasonal, preservative-Marleny Linton MD Work Phone: [phone] [place], [place] [address]Psnqlpkvso96-42-9797Exyelpnsf, injectable, Madin Byram Canine Kidney, preservative free, quadrivalentKvng Linton MD Work Phone: [phone] MobileColumbia Regional HospitalPaurckldew80-76-2941ybbywaoq influenza, intradermal, preservative Marleny Linton MD Work Phone: [phone] [place], [place] [address]Qminejygaa44-98-7827wxajirrcz, injectable, quadrivalent, contains preservativeKvng Linton MD Work Phone: [phone] [place], [place] [address]Dhqhrkfkbr49-74-0995bfjrebedzlxs polysaccharide vaccine, 23 Blanca Linton MD Work Phone: [phone] [place], [place] [address]Uxpqwamwvg21-35-2519skphqik toxoid, reduced diphtheria toxoid, and acellular pertussis vaccine, adsorbedKvng Linton MD Work Phone: [phone] [place] [address] Payers DatePayer CategoryPayerPolicy [id number] 2024Medicare (Managed Care)[employer] Member Subscriber Plan / Payer (Effective 2023-Present) Name: Berenice Silva Relation to Subscriber: Self Name: Berenice Silva Payer ID: Not on file Group ID: [id number] Type: Not on file Address: [facility] [address] [place] [id number] [id number] 2013Medicare [id number] [id number] 1960 [id number] 2.16.840.1.577963.3.579.2.593 53-04-7771Gcihntn2751374 2.16840.1.535330.3.579.2.95379-84-8462Rucqumo4617128 2.16840.1.340757.3.579.2.55230-17-8701Wqgqawp5268919 2.16840.1.900948.3.579.2.83757-34-3508Ixuwwpy5591314 2.16840.1.571410.3.579.2.36778-02-2742Csbtvum5036725 2.16840.1.594622.3.579.2.25177-63-5006Vycwsqc2369307 2.16840.1.545669.3.579.2.36170-72-7657Dtnegmh8372326 2.16840.1.032968.3.579.2.58946-39-1201Gqwidor5897257 2.16.840.1.690989.3.579.2.17975-97-9560Pegcqgk7175037 2.16840.1.155618.3.579.2.43452-73-1534Pmibnab6476133 2.16840.1.659142.3.579.2.89586-66-7462Busqxar9808911 2.16840.1.596987.3.579.2.03088-40-8626Oyjodmn7760236 2.16.840.1.823326.3.579.2.49301-55-6693Lpbzstd6713669 2.16.840.1.476408.3.579.2.76530-70-0596Sjlpjxk1161284 2.16.840.1.333943.3.579.2.17749-08-2744Ourvcix5805107 2.16.840.1.614688.3.579.2.99657-53-4647Dumcphm3277708 2.16.840.1.093580.3.579.2.23251-18-2504Mkovijq3948579 2.16.840.1.286585.3.579.2.60720-01-9748Vbyoxdq0351216 2.16840.1.110894.3.579.2.97161-16-8169Khanfdv6393544 2.16840.1.412146.3.579.2.90470-99-8913Tupzcuc6533250 2.16.840.1.980382.3.579.2.06901-05-5248Iputfmw7312038 2.16.840.1.090317.3.579.2.97808-01-0744Jpdfihy1058776 2.16.840.1.212333.3.579.2.56348-28-8435Wedvaql8385098 2.16.840.1.487816.3.579.2.77969-02-5038Sooghtb8299612 2.16.840.1.665526.3.579.2.66538-78-6147Fhhuhwj83742432 2.16.840.1.071785.3.579.2.00919-27-5482Oagzjqx42225041 2.0.1.647293.3.579.2.624177-83-3446Kowdviw81115649 2..1.758115.3.579.2.891326-13-4086Uuuwhql53295038 2.0.1.283171.3.579.2.445071-68-6144Owhvsic40405811 2.0.1.909020.3.579.2.330689-06-5968Sxgjxop02319032 2..1.873531.3.579.2.629159-74-6217Nkotuof86496478 2..1.245637.3.579.2.622423-77-1273Fnfyjxj49244440 2..1.980342.3.579.2.829939-48-8579Nklwfkk71110828 2..1.827051.3.579.2.635006-17-2902Lqdqdya11040045 2..1.719644.3.579.2.658763-37-9042Crtkqvl18872921 2..1.579224.3.579.2.253369-16-5808Rcbigng46444445 2..1.301611.3.579.2.970671-74-4413Slzlspk02775630 2..1.973065.3.579.2.125828-14-7783Lpdipxp92514849 2.0.1.103327.3.579.2.729814-19-2751Zfijita85401418 2.0.1.351975.3.579.2.637406-30-4015Hpimltb25505511 2.16.840.1.170038.3.579.2.044676-17-1646Bcfxmky97010545 2.16.840.1.407110.3.579.2.890202-94-1546Ujpetuv78079841 2.16.840.1.882096.3.579.2.068985-01-4598Jmqwytn4228228 2.16.840.1.343898.3.579.2.060913-23-8193Ybkxmcv1931307 2.16.840.1.705610.3.579.2.682961-15-7065Ibgrtli3344061 2.16.840.1.584302.3.579.2.1259 Social History DateTypeDetailFacilityStart: 03-12-2023 End: 87-52-2130Kvqowrd smoking status NHISEx-smokerNOMS HealthcareStart: 07-30-1965 End: 60-22-5157Nzrriza of tobacco useCurrent smokerNOMS HealthcareStart: 07-30-1965 End: 24-10-6362Yblghwr of tobacco useCigarette SmokerNOMS HealthcareStart: 03-12-2023 End: 08-04-3585Zgisopx use and exposureSmokeless tobacco non-userNOMO Healthcare Start: 08-30-2023 End: 22-31-0501Nqwafbw intakeNot AskedNOMO HealthcareStart: 03-12-2023 End: 91-91-9434Ibfnluq of Social functionNOMS Healthcare Work Phone: Start: 03-12-2023 End: 38-59-9535Votcxbo use panelNOMO Healthcare Work Phone: Start: 30-49-1775Cjiethg Commentcaffeine intake: more than 4 cups per day.[facility] HospitalStart: 03-11-6117Qxb Assigned At BirthNot on fileNOMO HealthcareStart: 02-06-2024 End: 12-17-3000Xttpthozz beverage intakeLifetime non-drinker (finding)NOMS HealthcareStart: 82-72-1077Mxa often do you need to have someone help you when you read instructions, pamphlets, or other written material from your doctor or pharmacy [SILS]NeverColumbia Regional Hospital Work Phone: Are you now , , , , never or living with a partner?MarriedNOMO HealthcareHow often to you have a drink containing alcohol?NeverINTER[facility] HealthcareHow hard is it for you to pay for the very basics like food, housing, medical care, and heatingVery hard NOMS HealthcareDo you feel stress - tense, restless, nervous, or anxious, or unable to sleep at night because yourmind is troubled all the time - these days [OSQ]Only a littleNOMS Healthcare(I/We) worried whether (my/our) food would run out before (I/we) got money to buy more.Never trueINTER[facility]OUNTAIN [facility]ALTH[facility]ARE HealthcareIn the past 12 months, was there a time when you were not able to pay the mortgage or rent on time?[facility] Functional Status MufcPivinthngyNiiklnTzxtcfwr56-34-7084Idtnube Health Questionnaire 2 item (PHQ- 2) [Reported][facility] HospitalJhcgzgqkvk01-17-3413Jxbbsgn Health Questionnaire 2 item (PHQ- 2) [Reported][facility] HospitalPvauacsbqy41-43-5814Rmbtx score [AUDIT-C]0 03/05/2024 8:53 AM EDT SaturdayElvi LPNNProHealth [facility] Clinical Notes 02-26-2022 to 03-16-2025 Note Date & ZsszIlueRydwddza77-13-0671 History of Present illness Narrative* Katlin Romero MD - 03/16/2025 3:30 PM EDT Images from the original note were not [...] discontinue wound care., Instructed to keep steri stripson for at least 5-7 days., Pathology results discussed. Next Visit: As needed documented in this encounterColumbia Regional HospitalOdrhdocdtk24-94-4759 History of Present illness Narrative* Katlin Romero MD - 03/02/2025 3:15 PM EDT Images from the original note were not [...] in usual sterile fashion (The planned incision lineswere drawn along relaxed skin tension lines, if [...] 14 days for s/r documented in this encounterColumbia Regional HospitalZqynmqtvyy00-87-2280 History of Present illness Narrative* YUE Mathew - 02/23/2025 10:00 AM EDT Images from the original note were not included. HPI Med Refill Additional comments: Ropinirole Back Pain Additional comments: Getting worse and would like to discuss options. She takes Tramadol as needed but not very often - it causes constipation and she already has problems with constipation Last edited by Rochelel Hoover LPN on 02/23/2025 10:11 AM. Subjective Patient ID: Berenice Silva is a 79 y.o. female who presents for Medicare Annual Wellness Visit Subsequent, Med Refill (Ropinirole), and Back Pain (Getting worse and would like to discuss options. Shetakes Tramadol as needed but not very often [...] Do you have a medical power of hay chopper?: No Current Outpatient Medications on File Prior [...] All needed testing was ordered. Will continue withyearly Medicare Wellness exams. 2. ACP (advance care [...] a living will and durable power of hay chopper for healthcare. We discussed telling yoder people [...] least every three months for monitoring. At eachfollow up visit I will reassess the patient's [...] Continue with current medications and I will continueto monitor. Goal BP remains less than 130/80. [...] Move Tea. Can contact office if symptoms donot improve. 15. Pharyngoesophageal dysphagia This is a [...] least every three months for monitoring. At eachfollow up visit I will reassess the patient's [...] (around 05/26/2025) for Medication Follow Up. Nicky Riddle MSALEXANDER, KRISTOFERC documented in this encounterColumbia Regional HospitalFaarovksvl71-10-3340 History of Present illness Narrative* YUE Dudley - 12/30/2024 12:50 PM EDT Images from the original note were not [...] diagnose the lesion would be to have itremoved and tested. Discussed treatment options including observation vs. excision. Patient elected for excision, plan schedule with Dr. Romero. Notify office if lesion is enlarging or becomes symptomatic. 2. LOCALIZED TENDERNESS Next Visit: 03/02/2025, excision documented in this encounterColumbia Regional HospitalVttiekzaax35-86-4834 History of Present illness Narrative* Tsering Starr, VIANNEY - 11/11/2024 9:30 AM EDT Images from the original note were not included. Subjective Patient ID: Berenice Silva is a 78 y.o. female who presents for No chief complaint on file.. Berenice presents today for an ER F/U for high blood pressure. She also had a headache, dizziness. Bpwas 210/100 when she went to the ER [...] controlled. Continue with current medications and I willcontinue to monitor. Goal BP remains less than 130/80. Rheumatoid arthritis, unspecified This is a chronic medical condition that is stable since last assessment. No changes in treatment are suggested at this time. Infected sebaceous gland - Ambulatory referral to Dermatology; Future Await referral No follow-ups on file. documented in this encounterColumbia Regional HospitalDppjylqrsi27-73-8221 Telephone encounter Note* Telephone Encounter - YUE Mathew - 08/31/2024 10:01 AM EST Acknowledged. [facility] HospitalCodxadjjmg37-06-9333 Miscellaneous Notes* Telephone Encounter - YUE Mathew - 08/31/2024 10:01 AM EST Acknowledged. * Telephone Encounter - NYA RAHMAN - 08/25/2024 4:45 PM EST Patient was contacted by ALEXANDER Castro for a sleep study and at this time she wants to cancel the study, for she doesn't feel it is necessary. documented in this encounterColumbia Regional HospitalRadktdcpww05-07-3148 Telephone encounter Note* Telephone Encounter - YUE Mathew - 08/31/2024 10:00 AM EST Acknowledged. [facility] Fkbkikokmz90-38-7062 Miscellaneous Notes* Telephone Encounter - YUE Mathew - 08/31/2024 10:00 AM EST Acknowledged. * Telephone Encounter - Heydi Syed MA - 08/25/2024 4:36 PM EST Hi, this is Be patient child care worker with [facility]. 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 [phone], thank you. documented in this [facility]02-04-2025 Telephone encounter Note* Telephone Encounter - NYA RAHMAN - 08/25/2024 4:45 PM EST Patient was contacted by ALEXANDER Castro for a sleep study and at this time she wants to cancel the study, for she doesn't feel it is necessary. [facility] Fkbrfojruc56-15-7254 Telephone encounter Note* Telephone Encounter - Heydi Syed MA - 08/25/2024 4:36 PM EST Hi, this is Be patient child care worker with [facility]. Matthew, I was just calling [...] call me at my cell phone number. [phone], thank you. [facility] Daktfbldxj17-84-4640 History of Present illness Narrative* YUE Mathew - 07/30/2024 9:00 AM EST Images from the original note were not [...] at 4 am or sometime during the nightto get her BP to come down. Has [...] will be switching to the Benicar when sheruns out of the medication with Losartan. Reviewed proper technique for checking BP with at home cuffs. She is going to get a new BP cuff, states her current one is older. Encouraged her to bring hernew cuff in so we can check it in the office to be sure it is accurate. Restless legs syndrome (RLS) - rOPINIRole (Requip) 0.5 MG tablet; Take 2 tablets (1 mg) by mouth in the morning and 2 tablets (1mg) before bedtime. Refill provided on the above. [...] (around 08/27/2024) for Recheck. documented in this encounterColumbia Regional HospitalNeeijdcjjt74-74-3065 Telephone encounter Note* Telephone Encounter - Kvng Linton MD - 05/08/2024 11:30 AM EDT Sent. [facility] HospitalFlzzhhrtkt54-13-4522 Miscellaneous Notes* Telephone Encounter - Kvng Linton MD - 05/08/2024 11:30 AM EDT Sent. documented in this encounterColumbia Regional HospitalYigwwbeyft42-35-0916 History of Present illness Narrative* Kvng Linton MD - 05/04/2024 3:15 PM EDT Images from the original note were not [...] 08/04/2024) for Routine F/U. documented in this encounterColumbia Regional HospitalTldovouzwn97-46-3202 Telephone encounter Note* Telephone Encounter - Kvng Linton MD - 04/06/2024 4:42 PM EDT Patient came in with for his office visit. During that visit showed me a painful erythematous 2cm subcutaneous nodule left mid/lower abdominal wall. Clinical suspicion of infected follicular cyst vs MRSA carbuncle. Will treat with Bactrim given concern for MRSA, despite history of itching reaction with this med. I discussed this with her and advised she take Benedryl OTC 1 hour prior toeach pill. [facility] HospitalRnvobzhvyc40-58-5165 Miscellaneous Notes* Telephone Encounter - Kvng Linton MD - 04/06/2024 4:42 PM EDT Patient came in with for his office visit. During that visit showed me a painful erythematous 2cm subcutaneous nodule left mid/lower abdominal wall. Clinical suspicion of infected follicular cyst vs MRSA carbuncle. Will treat with Bactrim given concern for MRSA, despite history of itching reaction with this med. I discussed this with her and advised she take Benedryl OTC 1 hour prior toeach pill. documented in this encounterColumbia Regional HospitalCuuxfilvxo36-61-7502 History of Present illness Narrative* Kvng Linton MD - 09/04/2023 11:30 AM EST Subjective Patient ID: Berenice Silva is a 77 y.o. female who presents for Follow-up (H stay admitted 08/24/23dx: TIA discharged home 08/25/23 advised to take ASA 325mg). Flowsheet Row Telephone from 08/30/2023 in [facility] with Kvng Linton MD Discharge Information ED or Hospital Discharge? Hospital Patient has been contacted within two business days of discharge No Have two attempts been made to contact the patient within two business days of being discharged? No Discharge Date 08/25/23 Discharge Hospital [facility] Discharged To: Home Setting Engagement Call [...] tablet by mouth in the morning and 1tablet before bedtime. meloxicam (Mobic) 15 MG tablet [...] THE MORNING 90 tablet 0 [DISCONTINUED] HYDROcodone-acetaminophen ([place]) 5-325 MG tablet Take 1 tablet by [...] 09/25/2023) for Test/Lab Review. documented in this encounterColumbia Regional HospitalDoqnpqukco25-39-6718 NotePROCEDURE: XR FOOT RT MIN 3 VIEWS HISTORY: Postoperative visit COMPARISON: [...] Electronically authenticated by: HALEIGH FINE Date: 2022-10-22 16:24[facility]03-21-2023 NotePROCEDURE: XR FOOT RT MIN 3 VIEWS COMPARISON: 09/18/2022 HISTORY: Pain [...] Electronically authenticated by: AYDEN SERRA Date: 2022-10-09 14:38[facility]02-28-2023 NotePROCEDURE: XR FOOT RT MIN 3 VIEWS COMPARISON: 05/10/2022 HISTORY: Pain [...] Electronically authenticated by: AYDEN SERRA Date: 2022-09-18 17:34[facility]10-20-2022 NotePROCEDURE: XR FOOT RT 2V COMPARISON: 02/23/2022 HISTORY: Pain FINDINGS: BONES:Stable medial effusion with plates and screws. Stable subtalar fusion. Changing configuration of the lateral sesamoid of the first metatarsal SOFT TISSUES:Negative. No visible soft tissue swelling. EFFUSION:None visible. OTHER: Negative. IMPRESSION: Intraprocedural fluoroscopic images Electronically authenticated by: AYDEN SERRA Date: 2022-05-10 17:33[facility]10-20-2022 NotePROCEDURE: XR FOOT RT MIN 3 VIEWS COMPARISON: 02/23/2022. HISTORY: Postoperative [...] Electronically authenticated by: AYDEN SERRA Date: 2022-05-10 17:32[facility]08-08-2022 NotePROCEDURE: XR FOOT RT MIN 3 VIEWS COMPARISON: 10/16/2021 HISTORY: Pain [...] Electronically authenticated by: AYDEN SERRA Date: 2022-02-26 07:57[facility]* Diagnosis TIA (transient ischemic attack)- Primary Unspecified [...] Other general symptoms documented in this encounter [facility] HealthcareEvaluation note* Diagnosis Medicare annual wellness visit, [...] sided sciatica Sciatica documented in this encounter [facility] HealthcareEvaluation note* Diagnosis Epidermal inclusion cyst- Primary Sebaceous cyst Pain Generalized pain documented in this encounter [facility] HealthcareEvaluation note* Diagnosis Encounter for removal of sutures documented in this encounter [facility] HealthcareReason for referral (narrative)* Consultation (Routine) - Pending ReviewSpecialtyDiagnoses / ProceduresReferred By ContactReferred To Contact Urology Diagnoses Urinary frequency Procedures [place] OFFICE/OUTPATIENT [facility] 60 MINUTES Kvng Linton MD [address] [place] [address] Vee Hatfield MD [address] [place] [address] Referral IDStatusReasonStart DateExpiration DateVisits RequestedVisits [id number] Review Specialty Services Required * Consultation (Routine) - Pending ReviewSpecialtyDiagnoses / ProceduresReferred By ContactReferred To ContactNeurology Diagnoses TIA (transient ischemic attack) Procedures [place] OFFICE/OUTPATIENT [facility] 60 MINUTES Kvng Linton MD [address] [place] [address] Damion Longo MD [address] [facility] [address] [place] [address] Referral IDStatusReasonStart DateExpiration DateVisits RequestedVisits [id number] Review Specialty Services Required * Imaging (Routine) - Pending ReviewSpecialtyDiagnoses / ProceduresReferred By ContactReferred To ContactCardiology Diagnoses TIA (transient ischemic attack) Procedures Echocardiogram 2D complete Kvng Linton MD [address] [place] [address] Referral IDStatusReasonStart DateExpiration DateVisits RequestedVisits [id number] Review Perform Procedure [facility] Summary Purpose Family History No [...] section and content) DATE CREATED AUTHOR 12/28/2022 [facility] DATE CREATED AUTHOR AUTHOR'S ORGANIZ ATION 09/07/2023 [facility] DATE CREATED AUTHOR AUTHOR'S ORGANIZ ATION 11/01/2023 [facility] DATE CREATED AUTHOR AUTHOR'S ORGANIZ ATION 01/22/2024 [facility] DATE CREATED AUTHOR AUTHOR'S ORGANIZ ATION 02/27/2024 [facility] DATE CREATED AUTHOR AUTHOR'S ORGANIZ ATION 03/15/2024 [facility] DATE CREATED AUTHOR AUTHOR'S ORGANIZ ATION 08/07/2024 [facility] DATE CREATED AUTHOR AUTHOR'S ORGANIZ ATION 03/18/2025 [facility] EPIC Care Teams (unrecognized sec tion and content) Team MemberRelationshipSpecialtyStart DateEnd Date Kvng Linton MD [address] [facility] [address] [place] [address] PCP - GeneralInternal Medicine11/27/22 Kvng Linton MD [address] [facility] [address] [place] [address] PCP - Rashid GALVEZ07/22/23Team MemberRelationshipSpecialtyStart DateEnd Date Kvng Linton MD [address] [facility] [address] [place] [address] PCP - GeneralInternal Medicine11/27/22 Kvng Linton MD [address] [facility] [address] [place] [address] PCP - Rashid GALVEZ07/22/23Team MemberRelationshipSpecialtyStart DateEnd Date Kvng Linton MD [address] [facility] [address] [place] [address] PCP - GeneralInternal Medicine11/27/22 Kvng Linton MD [address] [facility] [address] [place] [address] PCP - Neligh MA07/22/23Saturday, Elvi, [employer] [address] [place] [address] Licensed Practical NurseFamily Medicine02/26/24Team MemberRelationshipSpecialty Start DateEnd Kvng Linton MD [address] [facility] [address] [place] [address] PCP - GeneralInternal Medicine11/27/22 Kvng Linton MD [address] [facility] [address] [place] [address] PCP - Rashid MA07/22/23Saturday, NATANAEL BolesN [address] [place] [address] Licensed Practical NurseFamily Medicine02/26/24Team MemberRelationshipSpecialty Start DateEnd Kvng Linton MD [address] [facility] [address] [place] [address] PCP - GeneralInternal Medicine11/27/22 Kvng Linton MD [address] [facility] [address] [place] [address] PCP - Rashid GALVEZ07/22/23Saturday, Elvi, PARK LANDSCAPE ARCHITECT [address] [place] [address] Licensed Practical NurseFamily Medicine02/26/24am MemberRelationshipSpecialty Start DateEnd Date Kvng Linton MD [address] [facility] [address] [place] [address] PCP - GeneralInternal Medicine11/27/22 Kvng Linton MD [address] [facility] [address] [place] [address] PCP - Rashid GALVEZ07/22/23Saturday, NATANAEL BolesN [address] [place] [address] Licensed Practical NurseFamily Medicine02/26/24Team MemberRelationshipSpecialty Start DateEnd Date Kvng Linton MD [address] [facility] [address] [place] [address] PCP - GeneralInternal Medicine11/27/22Saturday, NATANAEL BolesN [address] [place] [address] Licensed Practical NurseFamily Medicine/02/12 Heydi Parker, RN Licensed Practical NurseFamily Medicine08/28/24Te MemberRelationshipSpecialty Start DateEnd Date Kvng Linton MD [address] [facility] [address] [place] [address] PCP - GeneralInternal Medicine11/27/22 Heydi Parker, RN Licensed Practical NurseFamily Medicine08/28/24Team MemberRelationshipSpecialty Start DateEnd Date Kvng Linton MD [address] [facility] [address] [place] [address] PCP - GeneralInternal Medicine11/27/22 Kvng Linton MD [address] [facility] [address] [place] [address] PCP - aRshid ID07/22/23 Reina Palma, MELISSA 10/06/24Team MemberRelationshipSpecialtyStart DateEnd Date Kvng Lintno MD [address] [facility] [address] [place] [address] PCP - GeneralInternal Medicine11/27/22 Kvng Linton MD [address] [place] [address] PCP - Neligh ID07/22/23 Reina Palma LPN 10/06/24Team MemberRelationshipSpecialtyStart DateEnd Date Kvng Linton MD [address] [place] [address] PCP - GeneralInternal Medicine11/27/22 Kvng Linton MD [address] [place] [address] PCP - Neligh ID07/22/23 Reina Palma PARK LANDSCAPE ARCHITECT 10/06/24Team MemberRelationshipSpecialtyStart DateEnd Date Kvng Linton MD [address] [place] [address] PCP - GeneralInternal Medicine11/27/22 Kvng Linton MD [address] [place] [address] PCP - Rashid ID07/22/23 Reina Palma PARK LANDSCAPE ARCHITECT 10/06/24Team MemberRelationshipSpecialtyStart DateEnd Date Kvng Linton MD [address] [place] [address] PCP - GeneralInternal Medicine11/27/22 Kvng Linton MD [address] [place] [address] PCP - Neligh ID07/22/23 Reina Palma LPN [address] [place] [address] 10/06/24Team MemberRelationshipSpecialtyStart DateEnd Date Kvng Linton MD [address] [place] [address] PCP - GeneralInternal Medicine11/27/22 Kvng Linton MD [address] [place] [address] PCP - Neligh ID07/22/23 Reina Palma LPN [address] [place] [address] 10/06/24Team MemberRelationshipSpecialtyStart DateEnd Date Kvng Linton MD [address] [place] [address] PCP - GeneralInternal Medicine11/27/22 Kvng Linton MD [address] [place] [address] PCP - Neligh ID07/22/23 Reina Palma LPN [address] [place] [address] 10/06/24Team MemberRelationshipSpecialtyStart DateEnd Date Kvng Linton MD [address] [place] [address] PCP - GeneralInternal Medicine11/27/22 Kvng Linton MD [address] [place] [address] PCP - Neligh ID07/22/23 Reina Palma LPN [address] [place] [address] 10/06/24Team MemberRelationshipSpecialtyStart DateEnd Date Kvng Linton MD [address] [place] [address] PCP - GeneralInternal Medicine11/27/22 Kvng Linton MD [address] [place] [address] PCP - Neligh ID07/22/23 Reina Palma LPN [address] [place] [address] 10/06/24Team MemberRelationshipSpecialtyStart DateEnd Date Kvng Linton MD [address] [place] [address] PCP - GeneralInternal Medicine11/27/22 Kvng Linton MD [address] [place] [address] PCP - Neligh ID07/22/23 Reina Palma LPN [address] [place] [address] 10/06/24Team MemberRelationshipSpecialtyStart DateEnd Date Kvng Linton MD [address] [place] [address] PCP - GeneralInternal Medicine11/27/22 Kvng Linton MD [address] [place] [address] PCP - Rashid GALVEZ07/22/23Saturday, MELISSA Boles [address] [place] [address] Licensed Practical NurseFamily Medicine Heydi Parker, RN [address] [place] [address] Licensed Practical NurseFamily Medicine Reina Palma LPN [address] [facility] [address] [place] [address] 10/06/24 Reason for Visit (unrecogniz ed section and content) ReasonCommentsFollow-upTBH stay admitted 08/24/23 dx: TIA discharged home 08/25/23 advised to take ASA 325mgReasonCommentsFollow-upLump on abd-see telephone encounterMed RefillTramadol--[facility] [place]ontReasonOnset DateCommentsMed Refill 4ReasonOnset DateCommentsMed Khsbsf144ReasonCommentsMed Refill RopiniroleReasonOnset DateCommentsMed Mjnkwm2709/18/2024ReasonCommentsSuspicious Skin LesionReasonCommentsMedicare Annual Wellness Visit SubsequentMed Refill RopiniroleBack PainGetting worse and would like to discuss options. She takes Tramadol as needed but not very often - it causes constipation and she already has problems with constipationReasonCommentsExcision FOR RECORDS PERTAINING TO PATIENTS WHO ARE [...] BE BASED ON THE PRIMARY CLINICAL RECORDS. [facility]. provides no warranty or guarantee of the accuracy or completeness of information in this document.
== END 2025-06-14 15:09 | disposition home or self-care (01) ==
LOC: WC 15:09
PROVIDERS: PCP Internal Medicine; Visit Provider Physician Assistant
DX: L97.415 Non-pressure chronic ulcer of right heel and midfoot with muscle involvement without evidence of necrosis (principal)
CPT/HCPCS: 11043

== ENCOUNTER 2025-06-25 18:14 | Emergency (ER) | payer MEDICARE, SELFPAY ==
--- OUTSIDE RECORDS SUMMARY | 2025-06-16 11:30 | XMS_ITS | Encounter Summary ---
Author Organization [facility] Address [address] [place] [address] Care Team Providers Care Break And Load Operator Name Role Phone Kvng Linton MD Primary Care Provider [phone] Kvng Linton MD Unavailable [phone] Reina Palma LPN Unavailable Reason for Referral * Imaging (Routine) - AuthorizedSpecialtyDiagnoses / ProceduresReferred By ContactReferred To ContactRadiology Diagnoses Essential (primary) hypertension Dyslipidemia At risk for coronary artery disease Procedures CT heart calcium scoring wo IV contrast Nicky Riddle PA [address] [facility] [address] [place] [address] Phone: tel: fax: [facility] Referral Department [address] [place] [address] fax: Referral IDStatusReasonStart DateExpiration DateVisits RequestedVisits [id number]/26/20255/ Reason for Visit * ReasonCommentsHypertension Encounter Details DateTypeDepartmentCare Team (Latest Contact Info)Bqekvicfwml18/26/2025 11:30 AM ESTOffice Visit [facility] [place] [facility] [address] [facility] [address] [place] [id number] Nicky Riddle PA [address] [facility] [address] [place] [address] Essential (primary) hypertension (Primary Dx); Other chronic pain; Polyarthritis; Neurogenic pain; Chronic right shoulder pain; Neck pain; Dyslipidemia; Abnormal urine odor; At risk for coronary artery disease; Acute cystitis with hematuria Social History Tobacco UseTypesPacks/DayYears UsedDateSmoking Tobacco: FormerCigarettes0.527 [...] Gatherings with Friends and FamilyNot on file03/05/2024ttends Tenriism ServicesNot on file03/05/2024ctive Member of Clubs or OrganizationsNot on file03/05/2024ttends Club or Organization MeetingsNot on file03/05/2024re you , , , , never , or living with a partner?Ljtpbkg8103/05/2024UDIT-C AnswerDate RecordedQ1: How often do you have [...] and heating?Very hard03/05/2024HQ-2 AnswerDate RecordedPatient Health Questionnaire-2 Lsgja854/[facility] [place] of Occupational Health - Occupational Stress QuestionnaireAnswerDate RecordedDo you feel stress - tense, restless, nervous, or anxious, or unable to sleep at night because yourmind is troubled all the time - these days?Only a fhvkbk7703/05/2024Exercise Vital SignAnswerDate RecordedOn average, how many days per week do you engage in moderate to strenuous exercise (like a brisk walk)? Patient dfoihycj85/10/2024On average, how many minutes do you engage in exercise at this level?Patient oyqzdsno30/10/2024Hunger Vital SignAnswerDate Recorded Within the past 12 [...] steady place to sleep or slept in warrenelter (including now)?No10/30/2023Housing Stability Vital SignAnswerDate RecordedIn the last 12 months, was there a time when you were not able to pay the mortgage or rent on time?No03/05/2024In the past 12 months, how many times have you moved where you were living?t any time in the past 12 months, were you homeless or living in a penitentiary (including now)?No 03/05/2024CommentsUnknownSex and Gender InformationValueDate RecordedSex Assigned at BirthNot on fileLegal ZogBemoyp73/15/2023 7:12 PM EDTGender Identity Not on fileSexual OrientationNot on filedocumented as of this encounter Last Filed Vital Signs Vital SignReadingTime TakenCommentsBlood Vuhbdpcb968/7806/16/2025 11:42 AM EST Aleif620706/16/2025 11:42 AM ESTTemperature--Respiratory Rate--Oxygen Saturation 100%06/16/2025 11:42 AM ESTInhaled Oxygen Concentration--Zzaqzo55.3 kg (144 lb) 06/16/2025 11:42 AM DPRCgzmfy636.3 cm (5' 11 )06/16/2025 11:42 AM ESTBody Mass Index20.0806/16/2025 11:42 AM ESTdocumented in this encounter Functional Status * Over the past 2 weeks, how often have you been bothered by any of the following problems?QuestionAnswerDate of AssessmentAuthorLittle interest or pleasure in doing thingsNot at all06/16/2025 6:55 AM Heydi Tafoya MA Feeling down, depressed, or hopelessNot at all06/16/2025 6:55 AM Heydi Tafoya MAPatient Health Questionnaire-2 Xehwj98908/16/2024 6:55 AM Heydi Tafoya MA documented as of this encounter Progress Notes * YUE Mathew - 06/16/2025 11:30 AM EST Images from the original note were not included. Subjective Patient ID: Berenice Disla is a 79 y.o. female who presents for Hypertension. Pt is requesting a urine test due to being on the BP medication and Meloxicam. States her urine hasan odor currently, but no other symptoms. She is having right shoulder pain, and left arm pain. 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 Cannot currently sleep on her right side due to the pain. Pain radiates up into her neck and down into her right arm. States the left arm pain started yesterday and she just didn't feel right. Talked herself out of seeking treatment at that time, did not want to go to the hospital. All of her symptoms are gone today. Hypertension This is a new problem. The current episode started yesterday (Pt went off of her medication, started having headache and went to ER). The problem has been gradually improving (BP has improved since adding medication) since onset. The problem is uncontrolled. Associated symptoms include neck pain. Pertinent negatives include no chest pain, palpitations or shortness of breath. There are no associated agents to hypertension. Risk factors for coronary artery disease include dyslipidemia and post-menopausal state. Past treatments include calcium channel blockers. The current treatment provides mild improvement. There are no compliance problems. Over the past 2 weeks, how often have you been bothered by any of the following problems? Little interest or pleasure in doing things: Not at all Feeling down, depressed, or hopeless: Not at all Patient Health Questionnaire-2 Score: 0 Current Outpatient Medications on File Prior to Visit Medication Sig Dispense Refill aspirin 81 MG EC tablet Take 81 mg by mouth Daily cholecalciferol (Vitamin D-3) 50 MCG (2000 UT) [...] 1 tablet by mouth in the morning. mupirocin (Bactroban) 2 % ointment Apply to affected area (abdomen) with dressing changes, 30 day supply 22 g 0 olmesartan-hydroCHLOROthiazide (BENIcar HCT) 20-12.5 MG tablet Take 1 tablet by mouth Daily 100 tablet 3 rOPINIRole (Requip) 0.5 MG tablet Take 2 tablets (1 mg) by mouth in the morning and 2 tablets (1 mg) before bedtime. 360 tablet 3 [DISCONTINUED] traMADol (Ultram) 50 MG tablet Take 1 tablet (50 mg) by mouth every 6 (six) hours ifneeded for severe pain 20 tablet 0 [DISCONTINUED] atorvastatin (Lipitor) 10 MG tablet Take 1 tablet (10 mg) by mouth in the morning. (Patient not taking: Reported on 07/30/2024) 100 tablet 3 [DISCONTINUED] cloNIDine (Catapres) 0.1 MG tablet TAKE 1 TABLET BY MOUTH EVERY 8 HOURS IF NEEDED FOR HIGH BLOOD PRESSURE FOR 170 OR GREATER (Patient not taking: Reported on 02/23/2025) 30 tablet 0 No current facility-administered medications on [...] date: 07/30/1965 Quit date: 07/22/1992 Years since quittin.9 Smokeless tobacco: Never Vaping Use Vaping status: [...] hospitalized 10/26/2023 Sepsis, Encephalopathy, Pneumonia Hyperlipidemia Hypertension Other acute osteomyelitis, right ankle and foot (HCC) 02/23/2025 Piriformis syndrome of right side 10/31/2021 Past Surgical History: Procedure Laterality Date ARTHROPLASTY 2019 CATARACT EXTRACTION SECTION, LOW TRANSVERSE COLONOSCOPY 2013 COLONOSCOPY 12/19/2023 COLONOSCOPY 03/13/2024 Up to Transverse Colon Visualized EGD 2019 esophageal dilatation FOOT SURGERY right foot dr castro HERNIA REPAIR IR INJECTION NERVE BLOCK 2020 2021 l4 to s1 and l3-l5 TUBAL LIGATION 1989 UMBILICAL HERNIA REPAIR 1952 Visit Vitals BP 124/78 Pulse 74 Ht 5' 11 Wt 144 lb SpO2 100% BMI 20.08 kg/m?? Smoking Status Former BSA 1.81 m?? Review of Systems Constitutional: Negative for chills, fatigue and fever. Respiratory: Negative for cough, shortness of breath and wheezing. Cardiovascular: Negative for chest pain, palpitations and leg swelling. Gastrointestinal: Negative for abdominal pain, constipation, diarrhea, nausea and vomiting. Genitourinary: Negative for dysuria and hematuria. Strong urine odor Musculoskeletal: Positive for arthralgias and neck pain. Skin: Negative for rash. Objective Physical Exam Constitutional: General: She is [...] and Affect: Mood normal. Behavior: Behavior normal. Office Visit on 06/16/2025 Component Date Value Ref Range Status Glucose, UA 06/16/2025 Negative Negative - 1999(110) ++++ mg/dL Final Bilirubin, UA 06/16/2025 Negative Negative - 4(70) +++ mg/dL Final Ketones, UA 06/16/2025 Negative Negative - 160(16) ++++ mg/dL Final Spec Grav, UA 06/16/2025 1.010 1 - 1.03 Final Blood, UA 06/16/2025 Positive Negative - 50 Johnnie/mcL Final trace pH, UA 06/16/2025 6.5 5 - 9 Final Protein, UA 06/16/2025 Negative Negative - 1999(20) ++++ mg/dL Final Urobilinogen, UA 06/16/2025 1.0 0.2 - 12 mg/dL Final Leukocytes, UA 06/16/2025 Moderate Negative - 500+++ Dinesh/mcL Final Nitrite, UA 06/16/2025 Negative Negative - Positive Final Assessment/Plan Diagnoses and all orders for this visit: Essential (primary) hypertension - CT heart calcium scoring wo IV contrast; Future Patient's blood pressure is currently well controlled. Continue with current medications and I willcontinue to monitor. Goal BP remains less than 130/80. Other chronic pain Pain Management agreement reviewed with patient and signed by both patient and provider. A copy of the signed agreement was offered to the patient. Reviewed the potential risks of opioid therapy including potential for GIS DEVELOPER s/e, GI s/e, respiratory s/e, dermatologic s/e, and urinary s/e, in additionto potential for allergic reaction, tolerance of the medication, dependence on the medication, potential for withdrawal with abrupt cessation, and potential for addiction. Also reviewed patient responsibilities regarding opioid therapy, and reasons why medication may need to be discontinued. See Chronic Opioid Therapy Agreement document for complete details. Polyarthritis - traMADol (Ultram) 50 MG tablet; Take 1 tablet (50 mg) by mouth every 6 (six) hours if needed for severe pain Medication choice and dosage is appropriate [...] OARRS Report was reviewed for this patient. Neurogenic pain Stable at this time on Gabapentin. Will continue to monitor. Chronic right shoulder pain - XR shoulder 2+ views right; Future Will obtain x-rays for further evaluation at this time. Will notify pt of the results once received. Neck pain - XR CERVICAL SPINE AP/LAT/OBLIQUES; Future Will obtain x-rays for further evaluation at this time. Will notify pt of the results once received. Dyslipidemia - CT heart calcium scoring wo IV contrast; Future Will obtain CT heart calcium scoring for further evaluation at this time. Abnormal urine odor - POCT urinalysis dipstick manually resulted UA abnormal in the office today. At risk for coronary artery disease - CT heart calcium scoring wo IV contrast; Future Denies any current chest pain, SOB, nausea, epigastric pain, or left arm pain. Educated pt on how heart related symptoms can present atypically in females. Reviewed s/s to watch for and when to seek evaluation in an ER. Will obtain CT for further evaluation to assess for CAD. Will notify pt of the results once received. ER sooner if any concerns. Acute cystitis with hematuria - URINARY TRACT INFECTION (HTRX); Future - ciprofloxacin (Cipro) 250 MG tablet; Take 1 tablet (250 mg) by mouth in the morning and 1 tablet (250 mg) before bedtime. Do all this for 3 days. Start the above medication as directed. Increase water intake, get plenty of rest. Advised patientthat the urine will be sent out for culture. May need to change the antibiotic based on the cultureresults. If patient develops any N/V, fever/chills, or symptoms dramatically increase, the patient is to go to the ER. Otherwise follow up at our office if no improvement in one week. Follow up with YUE Zayas in 3 months (on 09/14/2025 Medication Follow Up). documented in this encounter Plan of Treatment NameTypePriorityAssociated DiagnosesOrder ScheduleXR CERVICAL SPINE AP/LAT/OBLIQUESImagingRoutine Neck pain Expected: 06/16/2025, Expires: 06/16/2026XR shoulder 2+ views rightImaging Routine Chronic right shoulder pain Expected: 06/16/2025, Expires: 06/16/2026T heart calcium scoring wo IV contrast ImagingRoutine Essential (primary) hypertension Dyslipidemia At risk for coronary artery disease Expected: 06/16/2025, Expires: 06/16/2026documented as of this encounter Procedures Procedure NamePriorityDate/TimeAssociated DiagnosisCommentsURINARY TRACT INFECTION (HTRX)Kcbdomk2706/16/2025 12:16 PM EST Acute cystitis with hematuria POCT URINALYSIS JUWVNKKJImjagki99/26/2025 12:13 PM EST Abnormal urine odor documented in this encounter Results * URINARY TRACT INFECTION (HTRX) (06/16/2025 12:16 PM EST)ComponentValueRef RangeTest MethodAnalysis TimePerformed AtPathologist SignatureACINETOBACTER TFCQYEIT278.961 - 24.689 ppm06/17/2025 8:53 AM ESTHealthTrackRx at [facility] ACINETOBACTER BAUMANIINot Ntgcjguz07.961 - 24.689 ppm06/17/2025 8:53 AM EST [facility] at LabPortCITROBACTER UTYPZKXH288.000 - 32.015 ppm06/17/2025 8:53 AM ESTHealthTrackRx at LabPortCITROBACTER FREUNDIINot Xedwoctb26.000 - 32.015 ppm06/17/2025 8:53 AM ESTHealthTrackRx at LabPortENTEROBACTER AEROGENES, KSVEKXT501.000 - 32.290 ppm06/17/2025 8:53 AM ESTHealthTrackRx at LabPortENTEROBACTER AEROGENES, CLOACAENot Oizaqrza00.000 - 32.290 ppm 06/17/2025 8:53 AM ESTHealthTrackRx at LabPortENTEROCOCCUS FAECALIS, FAECIUM0 26.000 - 33.043 ppm06/17/2025 8:53 AM ESTHealthTrackRx at LabPortENTEROCOCCUS FAECALIS, FAECIUMNot Bcslbmir23.000 - 33.043 ppm06/17/2025 8:53 AM EST [facility] at LabPortESCHERICHIA VRYR355.000 - 28.500 ppm06/17/2025 8:53 AM ESTHealthTrackRx at LabPortESCHERICHIA COLINot Jizavbki27.000 - 28.500 ppm 06/17/2025 8:53 AM ESTHealthTrackRx at LabPortKLEBSIELLA PNEUMONIAE, OXYTOCA0 23.000 - 31.865 ppm06/17/2025 8:53 AM ESTHealthTrackRx at LabPortKLEBSIELLA PNEUMONIAE, OXYTOCANot Fbrfuyrf38.000 - 31.865 ppm06/17/2025 8:53 AM EST [facility] at LabPortMORGANELLA HUXHZPNR978.961 - 24.689 ppm06/17/2025 8:53 AM ESTHealthTrackRx at LabPortMORGANELLA MORGANIINot Kngagugq47.961 - 24.689 ppm06/17/2025 8:53 AM ESTHealthTrackRx at LabPortPROTEUS MIRABILIS, VULGARIS0 23.000 - 28.500 ppm06/17/2025 8:53 AM ESTHealthTrackRx at LabPortPROTEUS MIRABILIS, VULGARISNot Gczwuaqm20.000 - 28.500 ppm06/17/2025 8:53 AM EST [facility] at LabPortPSEUDOMONAS MRRHLTAWNL400.000 - 31.801 ppm06/17/2025 8:53 AM ESTHealthTrackRx at LabPortPSEUDOMONAS AERUGINOSANot Egvdyolc22.000 - 31.801 ppm06/17/2025 8:53 AM ESTHealthTrackRx at LabPortSTAPHYLOCOCCUS AUREUS0 26.000 - 31.595 ppm06/17/2025 8:53 AM ESTHealthTrackRx at [facility] STAPHYLOCOCCUS AUREUSNot Hiddsbuj66.000 - 31.595 ppm06/17/2025 8:53 AM EST [facility] at LabPortSTREPTOCOCCUS AGALACTIAE (GROUP B STREP)026.000 - 32.435 ppm06/17/2025 8:53 AM ESTHealthTrackRx at LabPortSTREPTOCOCCUS AGALACTIAE (GROUP B STREP)Not Tgnswsfd97.000 - 32.435 ppm06/17/2025 8:53 AM ESTHealthTrackRx at LabPortCANDIDA ALBICANS, PARAPSILOSIS, NYGNHWTLEI707.000 - 30.347 ppm06/17/2025 8:53 AM ESTHealthTrackRx at LabPortCANDIDA ALBICANS, PARAPSILOSIS, TROPICALISNot Gpwcmrvz26.000 - 30.347 ppm06/17/2025 8:53 AM EST [facility] LabPortCANDIDA YKZJYPOY747.000 - 31.618 ppm06/17/2025 8:53 AM ESTHealthTrackRx at LabPortCANDIDA GLABRATANot Cskeekeu29.000 - 31.618 ppm 06/17/2025 8:53 AM ESTHealthTrackRx at LabPortCANDIDA QUTMCW390.000 - 30.873 ppm06/17/2025 8:53 AM ESTHealthTrackRx at LabPortCANDIDA KRUSEINot Detected 23.000 - 30.873 ppm06/17/2025 8:53 AM ESTHealthTrackRx at LabPortSERRATIA BOXWKCXKJN527.000 - 31.581 ppm06/17/2025 8:53 AM ESTHealth[facility]Rx at [facility] SERRATIA MARCESCENSNot Jfglyroj80.000 - 31.581 ppm06/17/2025 8:53 AM EST [facility] at LabPortSTREPTOCOCCUS PYOGENES (GROUP A STREP)019.961 - 24.689 ppm06/17/2025 8:53 AM ESTHealthTrackRx at LabPortSTREPTOCOCCUS PYOGENES (GROUP A STREP)Not Kqvsalld22.961 - 24.689 ppm06/17/2025 8:53 AM EST [facility] at LabPortSTAPHYLOCOCCUS EPIDERMIDIS, HAEMOLYTICUS, LUGDUNENSIS, SAPROPHYTICUS (LSXGM914.961 - 24.689 ppm06/17/2025 8:53 AM ESTHealth[facility]Rx at [facility] HospitalSTAPHYLOCOCCUS EPIDERMIDIS, HAEMOLYTICUS, LUGDUNENSIS, SAPROPHYTICUS (URINANot Azppyvji90.961 - 24.689 ppm06/17/2025 8:53 AM ESTHealthTrackRx at [facility] HospitalSTAPHYLOCOCCUS EPIDERMIDIS, HAEMOLYTICUS, LUGDUNENSIS, SAPROPHYTICUS (GYFJI897.961 - 24.689 ppm06/17/2025 8:53 AM ESTHealth[facility] at [facility] STAPHYLOCOCCUS EPIDERMIDIS, HAEMOLYTICUS, LUGDUNENSIS, SAPROPHYTICUS (URINANot Eficlane15.961 - 24.689 ppm06/17/2025 8:53 AM ESTHealthTrackRx at [facility] Specimen (Source)Anatomical Location / LateralityCollection Method / Volume Collection TimeReceived YwbmMcqts24/26/2025 12:16 PM EST06/17/2025 2:25 AM EST Narrative Authorizing ProviderResult TypeResult StatusNicky Riddle [facility] BLOOD ORDERABLESFinal ResultPerforming OrganizationAddressCity/State/ZIP CodePhone Number [facility] [address] [place] [address] * (ABNORMAL) POCT urinalysis dipstick manually resulted (06/16/2025 12:13 PM EST)ComponentValueRef RangeTest MethodAnalysis TimePerformed AtPathologist SignatureGlucose, UANegativeNegative - 1999(110) ++++ mg/dLBilirubin, UA NegativeNegative - 4(70) +++ mg/dLKetones, UANegativeNegative - 160(16) ++++ mg/dLSpec Grav, UA1.0101 - 1.03Blood, UAPositiveNegative - 50 Johnnie/mcLComment: tracepH, UA6.55 - 9Protein, UANegativeNegative - 2000(20) ++++ mg/dL Urobilinogen, UA1.00.2 - 12 mg/dLLeukocytes, UAModerateNegative - 500+++ Dinesh/mcLNitrite, UANegativeNegative - PositiveSpecimen (Source)Anatomical Location / LateralityCollection Method / VolumeCollection TimeReceived Time Urine06/16/2025 12:13 PM EST Narrative Authorizing ProviderResult TypeResult StatusNicky Riddle [facility]EROINT [facility] CARE TEST ENTER/EDIT ORDERABLESFinal Result documented in this encounter Visit Diagnoses Diagnosis Essential (primary) hypertension- Primary Unspecified essential hypertension Other chronic pain Polyarthritis Unspecified polyarthropathy or polyarthritis, site unspecified Neurogenic pain Chronic right shoulder pain Pain in joint, shoulder region Neck pain Cervicalgia Dyslipidemia Other and unspecified hyperlipidemia Abnormal urine odor Other nonspecific finding on examination of urine At risk for coronary artery disease Acute cystitis with hematuria documented in this encounter Additional Health Concerns AssessmentNoted TimePHQ-9 Depression Total Score: 9:00 AM EDT documented as of this encounter Care Teams Team MemberRelationshipSpecialtyStart DateEnd Date Kvng Linton MD [address] [address] PCP - GeneralInternal Medicine11/27/22 Kvng Linton MD [address] [facility] [address] [place] [address] PCP - Rashid GALVEZ07/22/23 Reina Palma LPN [address] [facility] [address] [place] [address] 10/06/24documented as of this encounter
[2025-06-25 18:20] VITALS: BP 146/74; PULSE 73; TEMP 36.6; O2SAT 98; BMI 20.9
--- NOTE | 2025-06-25 18:37 | XR_ITS ---
[place] [id number] Patient Name: JESSICA SILVA MRN: [id number] date: 1945 Sex: F Assigned Patient Location: ER Current Patient Location: ED.MAIN Accession/Order Number: [id number] Exam Date: 06/25/2025 18:45 Report Date: 06/25/2025 19:30 At the request of: CHANELL TURNER Procedure: XR abdomen 1V Single x-ray view abdomen INDICATION: Constipation COMPARISON: None FINDINGS: Moderate colonic stool burden greatest distally rectosigmoid junction. No evidence of small bowel obstruction. No definite radiopaque calcifications overlying the renal shadows. Degenerative changes noted. Dextrocurvature lower lumbar spine. XR/XR abdomen 1V IMPRESSION: Moderate distal colonic stool burden worrisome for constipation versus impaction. Impression dictated by: Pio Mcnally M.D. 06/25/2025 7:30 PM Dictation Location: [place] [address] Electronically authenticated by: [id number] Y Date: 06/25/2025 19:30
--- NOTE | 2025-06-25 18:38 | ED.GENADUL1 ---
HPI HPI - General Adult General Chief complaint: Abdominal Pain Stated complaint: Constipation Time Seen by Provider: 06/25/25 18:26 Mode of arrival: walk-in History of Present Illness HPI narrative: Patient is a 79-year-old female that presents to the emergency department with complaints of worsening constipation. She does have this baseline but states that it usually does not this slow. She did have a very small bowel movement today, and notes that it has been this way for the past 3 days. She has taken her Linzess and drinking Smooth Move tea (Senna) for the last 3 days without relief. She denies any abdominal pain. She does follow with Dr. Camara and is up-to-date on her colonoscopies and has diverticulosis. She denies any fever, night sweats, or chills. Her only surgery in the abdominal/pelvic area has been a . Related Data Home Medications ?Medication ?Instructions ?Recorded ?Confirmed gabapentin 600 mg tablet 300 mg PO TID 08/24/23 06/25/25 meloxicam 15 mg tablet 15 mg PO DAILY 08/24/23 06/25/25 ropinirole 0.5 mg tablet 0.5 mg PO BID PRN restless leg(s) 08/24/23 06/25/25 olmesartan 20 1 tab PO DAILY 06/25/25 06/25/25 mg-hydrochlorothiazide 12.5 mg tablet tramadol 50 mg tablet 50 mg PO Q12H PRN pain 06/25/25 06/25/25 Previous Rx's ?Medication ?Instructions ?Recorded docusate sodium 100 mg capsule 100 mg PO BID #20 caps 06/25/25 (Colace) polyethylene glycol 3350 17 17 g PO DAILY #119 grams 06/25/25 gram/dose oral powder (Miralax) Allergies Allergy/AdvReac Type Severity Reaction Status Date / Time No Known Drug Allergies Allergy Verified 06/25/25 18:19 Opioid HPI Opioid Management Most Recent Opioid Data: Last Pain Scale 4 06/25/25, 19:12 Last ED Pain Assessment 06/25/25, 19:12 Review of Systems ROS Status of ROS 10 or more systems reviewed and unremarkable except as noted in history and below PFSH PFS Medical History (Updated 06/25/25 @ 21:04 by YUE Lala) Peripheral neuropathy ?G62.9 - Polyneuropathy, unspecified (ICD-10) Restless leg syndrome ?G25.81 - Restless legs syndrome (ICD-10) Hypokalemia ?E87.6 - Hypokalemia (ICD-10) Iron deficiency anemia ?D50.9 - Iron deficiency anemia, unspecified (ICD-10) Hypertension ?I10 - Essential (primary) hypertension (ICD-10) Transient ischemic attack ?G45.9 - Transient cerebral ischemic attack, unspecified (ICD-10) Paresthesia ?R20.2 - Paresthesia of skin (ICD-10) Social History Little interest or pleasure in doing things: not at all Feeling down, depressed, or hopeless: not at all Exam Narrative Exam Narrative: General: No distress, age-appropriate Skin: Warm, dry, no pallor. No rash. Head: Normocephalic, atraumatic. Neck: Supple, non-tender. Eye: Pupils are equal, round and EOMI. No scleral icterus. Ears, Nose, Mouth, and Throat: No nasal mucosal hypertrophy. Oral mucosa is moist, no posterior oropharynx erythema, uvula is mid-line Cardiovascular: Regular Rate and Rhythm without murmur, gallop or rub. Respiratory: No accessory muscle use or respiratory distress. Lungs are clear to auscultation, no wheezing, rales or rhonchi Chest Wall: no tenderness Musculoskeletal: Full ROM of all extremities, no calf or popliteal tenderness GI: Abdomen is soft, non-distended, non tender to palpation. No masses appreciated. No rebound, guarding, or rigidity noted. Neurological: A&O x4. No cranial nerve dysfunction observed. No truncal ataxia. Moves all extremities. Sensation intact. Psychiatric: Cooperative and interactive. Normal mood and affect. Constitutional Vital Signs, click to edit/add: Last Vital Signs Temp 97.9 F 06/25/25 18:20 Pulse 82 06/25/25 21:18 Resp 16 06/25/25 21:18 BP 147/77 H 06/25/25 21:18 Pulse Ox 98 06/25/25 21:18 O2 Del Method Room Air 06/25/25 21:18 Course Vital Signs Vital signs: Vital Signs Temperature 97.9 F 06/25/25 18:20 Pulse Rate 73 06/25/25 18:20 Respiratory Rate 16 06/25/25 18:20 Blood Pressure 146/74 H 06/25/25 18:20 Pulse Oximetry 98 06/25/25 18:20 Oxygen Delivery Method Room Air 06/25/25 18:20 Temperature 97.9 F 06/25/25 18:20 Pulse Rate 82 06/25/25 21:18 Respiratory Rate 16 06/25/25 21:18 Blood Pressure 147/77 H 06/25/25 21:18 Pulse Oximetry 98 06/25/25 21:18 Oxygen Delivery Method Room Air 06/25/25 21:18 Medical Decision Making MDM Narrative Medical decision making narrative: The patient is a 79-year-old female with a history of chronic constipation, presenting with a 3-day exacerbation of symptoms. She has attempted self-management with Linzess and senna tea (Smooth Move) without relief. A KUB x-ray revealed moderate distal colonic stool burden, raising concern for either constipation or fecal impaction. The patient denied any associated abdominal pain, fever, night sweats, or chills, and her laboratory results, including a normal CMP and TSH, did not suggest an acute infectious or metabolic process. Based on clinical examination and the KUB findings, the working diagnosis is fecal impaction. In the ER, a soap suds enema was administered with partial evacuation of stool, and a digital rectal exam (TALITA) confirmed additional stool in the rectum, which was evacuated. Magnesium citrate was provided for the patient to take at home, with recommendations to begin Miralax and Colace after discharge to further soften stool and prevent recurrence. The patient was advised to follow up with her primary care provider (PCP) for ongoing management and monitoring of her constipation. Given the patient?s history of diverticulosis, continued monitoring for any changes in symptoms was advised, and further investigation into bowel motility may be considered if episodes of constipation become recurrent. The patient?s mild hyponatremia (sodium 133) was noted, though this is likely related to dehydration from her ongoing constipation, and she was encouraged to maintain adequate hydration. The plan includes continued laxative therapy, follow-up with her PCP, and lifestyle modifications to manage her chronic constipation. Patient was discharged in stable condition. Differential Diagnosis Differential Diagnosis: Dehydration/electrolyte abnormality, fecal impaction, Lab Data Lab results reviewed: Yes I reviewed the patient's lab results Labs: Lab Results 06/25/25 Range/Units 18:55 WBC 7.8 (4.0-11.0) 10^3/uL RBC 4.01 L (4.20-5.40) 10^6/uL Hgb 12.4 (12.0-16.0) g/dL Hct 36.2 (36.0-48.0) % MCV 90.3 (81.0-99.0) fL MCH 30.9 (26.7-34.0) pg MCHC 34.3 (29.9-35.2) g/dL RDW 12.0 (11.0-15.0) % Plt Count 255 (150-450) 10^3/uL MPV 8.4 L (9.5-13.5) fL Neut % (Auto) 62.4 (43.0-75.0) % Lymph % (Auto) 25.6 (20.5-60.0) % Mccracken % (Auto) 9.5 (1.7-12.0) % Eos % (Auto) 1.7 (0.9-7.0) % Baso % (Auto) 0.5 (0.2-2.0) % Neut # (Auto) 4.9 (1.4-6.5) 10^3/uL Lymph # (Auto) 2.0 (1.2-3.8) 10^3/uL Mccracken # (Auto) 0.7 (0.3-0.8) 10^3/uL Eos # (Auto) 0.1 (0.0-0.7) 10^3/uL Baso # (Auto) 0.0 (0.0-0.1) 10^3/uL Abs Immat Gran (auto) 0.02 (0.00-0.03) 10^3/uL Imm/Tot Granulo (auto) 0.3 (0.0-0.5) % Sodium 133 L (136-145) mmol/L Potassium 3.7 (3.5-5.1) mmol/L Chloride 95 L (98-107) mmol/L Carbon Dioxide 30.1 (21.0-32.0) mmol/L Anion Gap 11.6 BUN 17.0 (7.0-18.0) mg/dL Creatinine 0.99 (0.55-1.02) mg/dL Est GFR ( Amer) >60 (>=60 mL/min/1.73m^2) Est GFR (Non-Af Amer) 54 L (>=60 mL/min/1.73m^2) BUN/Creatinine Ratio 17.2 Glucose 97 (74-106) mg/dL Calcium 9.1 (8.5-10.1) mg/dL Total Bilirubin 0.8 (0.2-1.0) mg/dL AST 17 (15-37) U/L ALT 24 (14-59) U/L Alkaline Phosphatase 102 (46-116) U/L Total Protein 7.2 (6.4-8.2) g/dL Albumin 3.6 (3.4-5.0) g/dL Globulin 3.6 g/dL Albumin/Globulin Ratio 1.0 TSH 1.865 (0.358-3.740) uIU/mL Imaging Data Abdominal x-ray: Attestation: I have reviewed the pertinent imaging results. Radiologist's impression: ITS Impressions Abdomen X-Ray 06/25/25 18:37 IMPRESSION: Moderate distal colonic stool burden worrisome for constipation versus impaction. Impression dictated by: Pio Mcnalyl M.D. 06/25/2025 7:30 PM Dictation Location: [place] [id number] Electronically authenticated by: [id number] Y Date: 06/25/2025 19:30 Discharge Plan Discharge Chief Complaint: Abdominal Pain Clinical Impression: Constipation Patient Disposition: Home, Self-Care Time of Disposition Decision: 21:03 Condition: Good Mode of Transportation: Private Vehicle Prescriptions / Home Meds: New docusate sodium [Colace] 100 mg capsule 100 mg PO BID Qty: 20 0RF polyethylene glycol 3350 [Miralax] 17 gram/dose powder 17 g PO DAILY Qty: 119 0RF No Action tramadol 50 mg tablet 50 mg PO Q12H PRN (Reason: pain) olmesartan-hydrochlorothiazide 20-12.5 mg tablet 1 tab PO DAILY gabapentin 600 mg tablet 300 mg PO TID meloxicam 15 mg tablet 15 mg PO DAILY ropinirole 0.5 mg tablet 0.5 mg PO BID PRN (Reason: restless leg(s)) Print Language: [place] Instructions: Constipation (ED) Referrals: SAMIR MARTINI [Primary Care Provider, Internal Medicine] - 1 week Discharge Date/Time: 06/25/25 21:18
--- OUTSIDE RECORDS SUMMARY | 2025-06-25 18:44 | XMS_ITS | CCD ---
Author Organization [facility] Care Team Providers Care Safemaker Name Role Phone ANUP JOHN Attending Unavailable [...] LINTON, KVNG B Primary Care Unavailable Saturday BALANCE BRIDGE INSPECTOR, Elvi Unavailable Saturday BALANCE BRIDGE INSPECTOR, Elvi Unavailable Heydi Parker RN Unavailable [phone] [place] BALANCE BRIDGE INSPECTOR, Reina Unavailable Unavailable [place] BALANCE BRIDGE INSPECTOR, Reina Unavailable TSERING STARR Attending Unavailable ANIVAL GILMAN Attending Unavailable KVNG LINTON Attending Unavailable NICKY RIDDLE Attending Unavailable KATLIN ROMERO Attending Unavailable KATLIN ROMERO Attending Unavailable NICKY RIDDLE Attending Unavailable Saturday BALANCE BRIDGE INSPECTOR, Elvi Unavailable Heydi Parker RN Unavailable Allergies Allergy ClassificationReported Allergen(s)Allergy TypeDate of OnsetReaction(s) Facility (1 source)Amoxicillin / ClavulanateDrug AllergyThe [facility] (1 source)CephalexinDrug Fwghjlp75-98-7002Kcw [facility] (1 source)Sulfonamides (Antibiotic)Drug allergy (disorder)[facility] (20 sources)Sulfonamides (Antibiotic)Drug Rsywkfe57-04-2097[facility] (20 sources)Amoxicillin-Pot Clavulanate; Translations: [AMOXICILLIN-POT CLAVULANATE]Drug Qcwroee97-41-5041Asvgtt OnlyNOThree [facility] (3 sources)Sulfonamides (Antibiotic); Translations: [SULFA (SULFONAMIDE ANTIBIOTICS)]Propensity to adverse reactions to drug (disorder)02-07-2022 [facility] Repository Medications Current Medications MedicationDrug Class(es)DatesSig (Normalized)Sig (Original)acetaminophen 325 mg / HYDROcodone bitartrate 5 mg oral tablet (3 sources)Opioid AgonistStart: 10-22-2022 End: 09-54-4241ieqa 1 tablet by mouth four times daily as neededHYDROcodone- acetaminophen ([place]) 5-325 MG tablet Take 1 tablet by mouth 4 (four) times a day as needed. 0 10/22/2022 09/04/2023 Discontinued (Therapy completed) ALPRAZolam 0.5 mg oral tablet (9 sources)BenzodiazepineStart: 01-09-2024 End: 18-67-5022VZNSTGrguf (Xanax) 0.5 MG tablet Indications: Anxiety about health Take 1 tablet (0.5 mg) by mouth as needed at bedtime for anxiety 30 tablet 1 01/09/2024 07/30/2024 Discontinued (Other)ascorbic acid 250 mg oral tablet (15 sources)Vitamin C End: 42-47-7581gtdj 1 tablet by mouth in the morningascorbic acid (Vitamin C) 250 MG tablet Take 250 mg by mouth in the morning. 02/23/2025 Discontinued (Other)aspirin 81 mg delayed release oral tablet (20 sources)Platelet Aggregation Inhibitor, Nonsteroidal Anti-inflammatory Drug take 1 tablet by mouth once dailyaspirin 81 MG EC tablet Take 81 mg by mouth Daily Active End: 23-79-8789midwvlh 325 MG tablet Take 81 mg by mouth Daily 07/30/2024 Discontinued (Other)take 1 tablet by mouth in the morningaspirin 325 MG tablet Take 325 mg by mouth in the morning. Activeatorvastatin 10 mg oral tablet (20 sources)HMG-CoA Reductase InhibitorStart: 85-66-9051lopk 1 tablet by mouth in the morningatorvastatin (Lipitor) 10 MG tablet Indications: Dyslipidemia Take 1 tablet (10 mg) by mouth in themorning. 100 tablet 3 04/29/2024 ActiveStart: 33-18-6786tcel 1 tablet by mouth once daily in the morningatorvastatin (Lipitor) 10 MG tablet Indications: Dyslipidemia (CMS/HCC) TAKE 1 TABLET BY MOUTH EVERY DAY IN THE MORNING 90 tablet 09/16/2023 ActiveStart: 96-53-9384reus 1 tablet by mouth in the morningatorvastatin (Lipitor) 10 MG tablet Indications: Dyslipidemia (CMS/HCC) Take 1 tablet (10 mg) by mouth in the morning. 90 tablet 0 09/04/2023 ActiveStart: 69-45-0443qpyq 1 tablet by mouth in the morning atorvastatin (Lipitor) 10 MG tablet Indications: Dyslipidemia (CMS/HCC) Take 1 tablet (10 mg) by mouth in the morning. 90 tablet 0 09/04/2023 ActiveStart: 06-10-2023 End: 24-75-7163kivr 1 tablet by mouth once daily in the morningatorvastatin (Lipitor) 10 MG tablet Indications: Dyslipidemia (CMS/HCC) TAKE 1 TABLET BY MOUTH EVERY DAY IN THE MORNING 90 tablet 0 06/10/2023 09/04/2023 Discontinued (Reorder)calcium carbonate 500 mg oral tablet (12 sources) End: 84-70-3926qclzhek carbonate (Os-King) 1250 (500 Ca) MG tablet every 12 (twelve) hours. 07/30/2024 Discontinued(Other)cholecalciferol 0.05 mg oral tablet (20 sources)Vitamin Dtake 1 tablet by mouth in the morningcholecalciferol (Vitamin D-3) 50 MCG (2000 UT) tablet Take 1,000 Units by mouth in the morning. ActivecloNIDine hydrochloride 0.1 mg oral tablet (15 sources)Central alpha-2 Adrenergic AgonistStart: 11-11-2024 End: 95-25-1747mdhn 1 tablet by mouth every eight hours for hypertension cloNIDine (Catapres) 0.1 MG tablet Indications: Essential (primary) hypertension TAKE 1 TABLET BY MOUTH EVERY 8 HOURS IF NEEDED FOR HIGH BLOOD PRESSURE FOR 170 OR GREATER 30 tablet 12/09/2024 Activegabapentin 600 mg oral tablet (20 sources)Anti-epileptic AgentStart: 09-17-5858oyftdxpcyf (Neurontin) 600 MG tablet Indications: Neuralgia TABLET 1/2 TABLET BY MOUTH TWICE A DAY AND TAKE 1 TABLET BY MOUTH EVERY DAY AT BEDTIME 180 tablet 3 02/01/2025 ActiveStart: 03-85-2138iojcaatejy (Neurontin) 600 MG tablet Indications: Neuralgia TABLET 1/2 TABLET BY MOUTH TWICE A DAY AND TAKE 1 TABLET BY MOUTH EVERY DAY AT BEDTIME 180 tablet 3 02/28/2024 ActiveStart: 39-15-8413ozhsxzwshz (Neurontin) 600 MG tablet Indications: Neuralgia TABLET [...] Diuretic, Angiotensin 2 Receptor BlockerStart: 10-03-2023 End: 65-84-2576vhjp 1 tablet by mouth once dailyolmesartan-hydroCHLOROthiazide (BENIcar HCT) 20-12.5 MG tablet Indications: Essential (primary) hypertension Take 1 tablet by mouth Daily 07/30/2024 Activeibuprofen 800 mg oral tablet (15 sources)Nonsteroidal Anti-inflammatory DrugStart: 05-13-2024 End: 58-39-2990upan 1 tablet by mouth every six hours as needed for pain ibuprofen 800 MG tablet Take 800 mg by mouth every 6 (six) hours if needed for moderate pain 05/13/2024 02/23/2025 Discontinued (Therapy completed)linaclotide 0.072 mg oral capsule (9 sources)Guanylate Cyclase-C AgonistStart: 10-22-2023 End: 62-05-3232ryfv 1 capsule by mouth before mealtimelinaCLOtide (Linzess) 72 MCG capsule Indications: Chronic idiopathic constipation Take 1 capsule (72 mcg) by mouth in the morning. Take before meals. Do not crush or chew.. 10/22/2023 07/30/2024 Discontinued (Other)meloxicam 15 mg oral tablet (20 sources)Nonsteroidal Anti-inflammatory DrugStart: 02-06-2024 End: 68-20-5620jmzo 1 tablet by mouth once daily at mealtimemeloxicam (Mobic) 15 MG tablet Indications: Inflammatory and toxic neuropathy (HCC) , Neurogenic pain Take 1 tablet (15 mg) by mouth Daily Take with food 90 tablet 3 09/18/2024 ActiveStart: 00-58-4301lzun 1 tablet by mouth once dailymeloxicam (Mobic) [...] topical ointment (5 sources)RNA Synthetase Inhibitor AntibacterialStart: 52-56-6766iwkdtbrjg (Bactroban) 2 % ointment Indications: Epidermal inclusion cyst Apply to affected area (abdomen) with dressing changes, 30 day supply 22 g 03/02/2025 Active rOPINIRole 0.5 mg oral tablet (20 sources)Nonergot Dopamine AgonistStart: 02-27-2024 End: 66-27-1783sjdq 2 tablets by mouth in the morningrOPINIRole (Requip) 0.5 MG tablet Indications: Restless Leg Syndrome Take 2 tablets (1 mg) by mouthin the morning and 2 tablets (1 mg) before bedtime. 360 tablet 3 07/30/2024 Active Start: 74-00-0781xykp 2 tablets by mouth in the morningrOPINIRole (Requip) 0.5 MG tablet Indications: Restless legs syndrome (RLS) TAKE 2 TABLETS BY MOUTHIN THE MORNING AND TAKE 2 TABLETS AT BEDTIME 360 tablet 1 06/17/2023 Active sulfamethoxazole 800 mg / trimethoprim 160 mg oral tablet (1 source)Dihydrofolate Reductase Inhibitor Antibacterial, Sulfonamide AntimicrobialStart: 04-06-2024 End: 74-86-8807lowc 1 tablet by mouth once in the [...] oral tablet (20 sources)Opioid AgonistStart: 02-06-2024 End: 03-50-4175ytap 1 tablet by mouth every six hours [...] (acquired), right foot; Translations: [Acquired hallux malleus]Onset: 649953-32-5675VpaleynKxpoqcunwfhnsc/social admission (2 sources)Patient encounter status; Translations: [Other specified counseling] 72-36-9894UeolvuftUofwxie disorders (20 sources)Anxiety disorder, unspecified; Translations: [Anxiety]Onset: 979265-26-0506UyiitumQhequym ulcer of skin (20 sources)Non-pressure chronic ulcer of other part of right foot with fat layer exposed; Translations: [Non-pressure chronic ulcer of other part of right foot with necrosis of bone]Onset: 01-11-2022 Resolved: 20-54-0316GktzxlsStjsgpfi mellitus with complications (1 source)Type 2 diabetes mellitus with foot ulcer; Translations: [TYPE 2 DM W/FOOT ULCER]Onset: 48-99-6868TfckgwnKamivgwag of lipid metabolism (20 sources)Hyperlipidemia, unspecified; Translations: [Dyslipidemia]Onset: 63-65-0884WnzplzsZdfladmspuexry and diverticulitis (2 sources)Diverticulosis of large intestine without perforation or abscess without bleeding; Translations: [Diverticulosis of intestine, part unspecified, without perforation or abscess without bleeding]Onset: 69-18-1054Wyjpsvw Esophageal disorders (20 sources)Gastro-esophageal reflux disease without esophagitis; Translations: [Laryngopharyngeal reflux]Onset: 768956-21-1300GkqknefSpvbdairp hypertension (20 sources)Essential (primary) hypertension; Translations: [Essential hypertension]Onset: 903965-94-8914BbkambzUqgtstnnuudyg symptoms and ill- defined conditions (2 sources)Increased frequency of urination; Translations: [Frequency of micturition]19-71-3039YeqyvqyfBjlqpptfka obstruction without hernia (1 source)Other intestinal obstruction unspecified as to partial versus complete obstruction; Translations: [Other intestinal obstruction unspecified as to partial versus complete obstruction]Onset: 41-89-9640YuuxiemhUlgignvkhm disorders (20 sources)Decreased estrogen level; Translations: [Other primary ovarian failure]Onset: 564757-43-2758HqrwebwDweisyiqzkr deficiencies (20 sources)Vitamin D deficiency; Translations: [Vitamin D deficiency, unspecified]Onset: 059854-86-4480LvcoudoShkdkeegzowtgb (20 sources)Primary osteoarthritis, right shoulder; Translations: [Arthritis of shoulder region joint]Onset: 08-22-2009 Resolved: 108331-18-5914MuthhsdHyjkz acquired deformities (1 source)Contracture, right ankle; Translations: [CONTRACTURE RIGHT ANKLE] Onset: 38-89-3788PidpkajEfszg acquired deformities (20 sources)Equinus contracture of the ankle; Translations: [Contracture, right ankle]Onset: 610473-92-5214KvbotcjYpgaz aftercare (1 source)Other nursing home (current) drug therapy; Translations: [OTH PHARMACY MESSENGER CURRENT DRUG THERAPY]Onset: 73-65-7444MfdwsergOnpaf aftercare (2 sources)Removal of sutures done; Translations: [Encounter for removal of sutures]59-78-0022JhjkunreRgamb connective tissue disease (1 source)Arthrodesis status; Translations: [ARTHRODESIS STATUS]Onset: 85-56-2671XyphbrusAfogf connective tissue disease (4 sources)Pain in right foot; Translations: [PAIN IN RIGHT FOOT]Onset: 45-38-1935SrqzgexsIrxlk gastrointestinal disorders (20 sources)Chronic idiopathic constipation; Translations: [Chronic idiopathic constipation]Onset: 621097-79-9258OljhjqnOajvs gastrointestinal disorders (2 sources)Constipation, unspecified; Translations: [Constipation, unspecified] Onset: 67-80-8524XzujavdiXtuiu gastrointestinal disorders (3 sources)Change in bowel habit; Translations: [Change in bowel habit]Onset: 05-60-7213MuzslfwkVzpsh gastrointestinal disorders (1 source)ConstipationOnset: 18-60-5513PrwuyuboZbajm hereditary and degenerative nervous system conditions (5 sources)Restless legs syndrome; Translations: [RESTLESS LEGS SYNDROME]Onset: 57-81-4045YncelqxCndqh hereditary and degenerative nervous system conditions (20 sources)Restless legs; Translations: [Restless legs syndrome]Onset: 867737-64-5962VtwkgkfXxbzf lower respiratory disease (2 sources)Snoring; Translations: [Snoring]71-28-0159BcdrifseJwpjb lower respiratory disease (2 sources)Apnea; Translations: [Apnea, not elsewhere classified]07-30-2024 EpisodicOther nervous system disorders (1 source)Other chronic pain; Translations: [OTHER CHRONIC PAIN]Onset: 93-46-4633DhilzdzNbxae nervous system disorders (5 sources)Polyneuropathy, unspecified; Translations: [POLYNEUROPATHY UNSPECIFIED]Onset: 98-43-2462CwxjwsqFwqxt nervous system disorders (20 sources)Hereditary motor and sensory neuropathy; Translations: [Hereditary motor and sensory neuropathy]Onset: 428013-16-2770DofgyjwCkphp nervous system disorders (20 sources)Inflammatory and toxic neuropathy; Translations: [Polyneuropathy due to other toxic agents]Onset: 563612-65-5369IkwuadxUvurq nervous system disorders (20 sources)Chronic pain; Translations: [Other chronic pain]Onset: 03-12-2023 72-22-8590WeavkymFxarf nervous system disorders (2 sources)Burning sensation; Translations: [Other disturbances of skin sensation]19-39-2877BazwnwtdUyhvr non-traumatic joint disorders (1 source)Charcot's joint, right ankle and foot; Translations: [CHARCOTS JOINT RIGHT ANKLE AND F]Onset: 90-71-3571XxnyjqmNnege non-traumatic joint disorders (1 source)Other specified arthritis, unspecified site; Translations: [OTHER SPECIFIED ARTHRITIS UNS SITE]Onset: 37-10-4072ZdcgzhtLqwpk non-traumatic joint disorders (20 sources)Charcot's arthropathy; Translations: [Charcot's joint, unspecified site]Onset: 03-12-2023 Resolved: 973865-57-6308YobwtgdJpjpn non-traumatic joint disorders (20 sources)Polyarthropathy; Translations: [Polyarthritis, unspecified]Onset: 324159-45-8251AcsfakqAqvwr nutritional; endocrine; and metabolic disorders (20 sources)Xanthomatosis; Translations: [Other lipid storage disorders]Onset: 717726-89-5072CuihuzkLqnkk skin disorders (5 sources)Nail dystrophy; Translations: [NAIL DYSTROPHY]Onset: 06-19-2022 EpisodicOther skin disorders (3 sources)Follicular cysts of skin and subcutaneous tissue; Translations: [Follicular cyst of the skin and subcutaneous tissue, unspecified]05-04-2024 EpisodicOther skin disorders (4 sources)Infection of sebaceous cyst; Translations: [Other specified follicular disorders]93-49-2213LioamsplVcasv skin disorders (4 sources)Epidermoid cyst; Translations: [Epidermal cyst]07-99-4544Zcmeufmp Other skin disorders (11 sources)Onychoatrophy; Translations: [Nail dystrophy]Onset: 02-23-2025 55-46-4322DrjopxzrIarcwvrg codes; unclassified (1 source)Localized edema; Translations: [LOCALIZED EDEMA]Onset: 2022 EpisodicResidual codes; unclassified (2 sources)Tenderness ; Translations: [Pain, unspecified]58-27-7304Igksclnl Residual codes; unclassified (11 sources)Edema; Translations: [Edema, unspecified]Onset: EpisodicResidual codes; unclassified (2 sources)Pain; Translations: [Pain, unspecified]02-13-1415ZbnfaretOpsnokkedp arthritis and related disease (2 sources)Rheumatoid arthritis; Translations: [Rheumatoid arthritis, unspecified]39-65-5592DlzsmuzFmdlkcojo and history of mental health and substance abuse codes (1 source)Personal history of nicotine dependence; Translations: [PERSONAL HISTORY OF NICOTINE DEPEND]Onset: 06-54-8433UxqmwkwlJagrpipvuc (except in labor) (1 source)Sepsis, unspecified organism; Translations: [Sepsis, unspecified organism]Onset: 40-09-5745FouepomaTocr and subcutaneous tissue infections (8 sources)Cellulitis of right lower limb; Translations: [Cellulitis of left lower limb]Onset: 13-68-9271LpjdonvsOfwaqulmtmp; intervertebral disc disorders; other back problems (20 sources)Degeneration of lumbar intervertebral disc; Translations: [Other intervertebral disc degeneration, lumbar region]Onset: ChronicTransient cerebral ischemia (13 sources)Transient cerebral ischemia; Translations: [Transient cerebral ischemic attack, unspecified]Onset: 245382-63-6806VnnpocoTteqpprguqju (1 source)CONTACT W/AND (SUSP) EXPOS COVID-19; Translations: [CONTACT W/AND (SUSP) EXPOS COVID-19]Onset: 78-43-2091Cczrvwpofhga (1 source)ABNORMAL COLONOGRAPHYOnset: 27-82-4894Rtyyiniwynyq (1 source)change in bowel habits, constipationOnset: 12-19-2023 Past or Other Problems Problem ClassificationProblemDateDocumented DateEpisodic/ChronicAcquired foot deformities (1 source)Other acquired deformities of right foot; Translations: [OTHER ACQUIRED DEFORMITIES RT FOOT]Onset: 42-01-7690KrzyklvhZheqjslh reactions (20 sources)Actinic cheilitis; Translations: [Other specified acute skin changes due to ultraviolet radiation]Onset: 03-12-2023 Resolved: 055275-89-8402WuhikgkwIhjpkfg dysrhythmias (20 sources)Tachycardia; Translations: [Tachycardia, unspecified]Onset: 196898-93-6930HdwfkimnKxnlxthrmp and other anemia (1 source)Anemia, unspecified; Translations: [ANEMIA UNSPECIFIED]Onset: 02-62-5493CvionyxkAysnk and electrolyte disorders (2 sources)Hypo-osmolality and hyponatremia; Translations: [Hypokalemia]Onset: 79-92-1734IgyeoghbMrfdbgfuyunms and screening for infectious disease (20 sources)Other specified abnormal immunological findings in serum; Translations: [Rheumatoid factor positive]Onset: 078600-91-9214Kttnvkar Infective arthritis and osteomyelitis (except that caused by tuberculosis or sexually transmitted disease) (12 sources)Other osteomyelitis, lower leg; Translations: [Other acute osteomyelitis, right ankle and foot]Onset: 06-28-2022 Resolved: 597889-43-7697XnkytgpYypg disorders (20 sources)Mood disordersOnset: 02-06-2024 Resolved: Other bone disease and musculoskeletal deformities (20 sources)Osteopenia; Translations: [Other specified disorders of bone density and structure, multiple sites]Onset: 438187-28-1398VotvhifhGuizk connective tissue disease (20 sources)Spasm of cervical paraspinous muscle; Translations: [Other muscle spasm]Onset: 128547-88-4803BqmuhnlnDuvry connective tissue disease (20 sources)Impingement syndrome of right shoulder region; Translations: [Impingement syndrome of right shoulder]Onset: 968004-73-5892KkhuxvvpChrjr connective tissue disease (20 sources)Muscle atrophy; Translations: [Muscle wasting and atrophy, not elsewhere classified, unspecified site]Onset: 520497-15-3352BytyxiblVuegw connective tissue disease (20 sources)Neurogenic pain; Translations: [Neuralgia and neuritis, unspecified] Onset: 848797-35-9862UgbpszzhMcewg gastrointestinal disorders (20 sources)Dysphagia; Translations: [Dysphagia, pharyngoesophageal phase]Onset: 125474-70-5939DcfmxvnuAdeay infections; including parasitic (20 sources)History of sepsis; Translations: [Personal history of other infectious and parasitic diseases]Onset: 193405-71-7077WdawphkwKqgcg nervous system disorders (20 sources)Right-sided piriformis syndrome; Translations: [Lesion of sciatic nerve, right lower limb]Onset: 10-31-2021 Resolved: 766016-26-6866XnsowlnXpiau screening for suspected conditions (not mental disorders or infectious disease) (20 sources)Blood chemistry abnormal; Translations: [Abnormal finding of blood chemistry, unspecified]Onset: 879994-57-5941UudurxqsLvufu skin disorders (1 source)Corns and callosities; Translations: [CORNS AND CALLOSITIES]Onset: 52-17-7826JjecfxsmDbfofasdaxk; intervertebral disc disorders; other back problems (20 sources)Sciatica; Translations: [Sciatica, left side]Onset: 11-30-2020 15-10-0811Hgmphatw Results Test NameValueInterpretationReference Oliver Kirby Informationon 19-22-1217Qtihoi length (cm): 2.3 Lesion width (cm): 2 [...] used: 6.0 ml Estimated blood loss: <1.0 mlNRiver Falls Area HospitalComplexity: Intermediate Final length (cm): 2.3 Reason for [...] type: bandageNOMS HealthcareXR FOOT RT MIN 3Von 33-46[place] [address] XRay Report Signed Patient: BERENICE SILVA MR#: [id number] : 1945 Acct:[id number] Age/Sex: 79 / F ADM Date: 01/27/25 Loc: [facility] Attending Dr: Anup John D.P.M. Ordering Physician: Anup John D.P.M. Date of Service: 01/27/25 Procedure(s): XR foot RT min 3V Accession Number(s): [id number] cc: KVNG LINTON ; Anup John D.P.M. [place] [address] Patient Name: BERENICE SILVA MRN: [id number] date: 1945 Sex: F Assigned Patient Location: [facility] Current Patient Location: Accession/Order Number: [id number] Exam Date: 01/27/2025 15:38 Report Date: 01/27/2025 [...] Fish M.D. 01/27/2025 3:41 PM Dictation Location: [place] [address] Electronically authenticated by: [id number] Date: 01/27/2025 15:41 Dictated By: Lew Fish D.O. Signed By: 01/27/25 1543 DD/ 1541 TD/TT: City Assessor:TBHRadiology, Radiologist, MD - 01/27/2025 [place] [address] XRay Report Signed Patient: BERENICE SILVA MR#: [id number] : 1945 Acct:[id number] Age/Sex: 79 / F ADM Date: 01/27/25 Loc: RAD Attending Dr: Anup John D.P.M. Ordering Physician: Anup John D.P.M. Date of Service: 01/27/25 Procedure(s): XR foot RT min 3V Accession Number(s): [id number] cc: KVNG LINTON ; Anup John D.P.M. The [place] [address] Patient Name: BERENICE SILVA MRN: [id number] date: 1945 Sex: F Assigned Patient Location: [facility] Current Patient Location: Accession/Order Number: [id number] Exam Date: 01/27/2025 15:38 Report Date: 01/27/2025 [...] [facility]16 Electronically authenticated by: [id number] Y Date: 01/27/2025 15:41 Dictated By: Lew Fish D.O. Signed By: 01/27/25 1543 DD/ 154 TD/TT: City Assessor: [facility] HealthcareRadiology Study observation (narrative)NOM HealthcareXR FOOT RT MIN 3VOrdered By: Radiologist Radiology on 06-08-2406[facility] Work Phone: cBC (INCLUDES DIFF/PLT)on 20-70-9520Sptapccvl (Bld) [#/Vol]0.053 10*3/uLNormal0-200Quest DiagnosticsComment on above:Performed By: #### 6399, 7600, 49915 #### [facility] [place] [address] Recovery Operator Helper: Keaagn Holly MDBasophils/100 WBC (Bld)1.0 %NormalQuest DiagnosticsComment on above:Performed By: #### 6399, 7600, 64933 #### [facility] [place] [address] Recovery Operator Helper: Keagan Holly MDEosinophils (Bld) [#/Vol]0.143 10*3/uLNormal 15-500Quest DiagnosticsComment on above:Performed By: #### 6399, 7600, 86770 #### [facility] [place] [address] Recovery Operator Helper: Keagan Holly MDEosinophils/100 WBC (Bld)2.7 %NormalQuest DiagnosticsComment on above:Performed By: #### 6399, 7600, 88319 #### [facility] [place] [address] Recovery Operator Helper: Keagan Holly MDErythrocyte distribution width (RBC) [Ratio] 11.9 %Casbnk80.0-15.0Quest DiagnosticsComment on above:Performed By: #### 6399, 7600, 36983 #### [facility] of [address], [address] [place] [address] Recovery Operator Helper: Keagan Holly MDHematocrit (Bld) [Volume fraction]38.1 %Normal 35.0-45.0Quest DiagnosticsComment on above:Performed By: #### 6399, 7600, 57318 #### [facility] of [address], [address] [place] [address] Recovery Operator Helper: Keagan Holly MDHemoglobin (Bld) [Mass/Vol]13.1 g/dLNormal 11.7-15.5Quest DiagnosticsComment on above:Performed By: #### 6399, 7600, 04451 #### [facility] of [address], [address] [place] [address] Recovery Operator Helper: Keagan Holly MDLymphocytes (Bld) [#/Vol]1.988 10*3/uLNormal 850-3900Quest DiagnosticsComment on above:Performed By: #### 6399, 7600, 01595 #### [facility] of [place] [address] Recovery Operator Helper: Keagan Holly MDLymphocytes/100 WBC (Bld)37.5 %NormalQuest DiagnosticsComment on above:Performed By: #### 6399, 7600, 62161 #### [facility] of [place] [address] Recovery Operator Helper: Keagan Holly MDMCH (RBC) [Entitic mass]31.3 gkSzjeov02.0-33.0 Quest DiagnosticsComment on above:Performed By: #### 6399, 7600, 91520 #### [facility] of [place] [address] Recovery Operator Helper: Keagan Holly MDMCHC (RBC) [Mass/Vol]34.4 g/zTSjexef95.0-36.0 Quest DiagnosticsComment on above:Result Comment: For adults, a slight decrease in the calculated MCHC value (in the range of 30 to 32 g/dL) is most likely not clinically significant; however, it should be interpreted with caution in correlation with other red cell parameters and the patient's clinical condition.Performed By: #### 6399, 7600, 93530 #### [facility] of [place] [address] Recovery Operator Helper: Keagan PHIPPSCV (RBC) [Entitic vol]91.1 cZWzssqo11.0-100.0 Quest DiagnosticsComment on above:Performed By: #### 6399, 7600, 89208 #### [facility] [place] [address] Recovery Operator Helper: Keagan Holly MDMonocytes (Bld) [#/Vol]0.392 10*3/uLNormal 200-950Quest DiagnosticsComment on above:Performed By: #### 6399, 7600, 41246 #### [facility] [place] [address] Recovery Operator Helper: Keagan Holly MDMonocytes/100 WBC (Bld)7.4 %NormalQuest DiagnosticsComment on above:Performed By: #### 6399, 7600, 92151 #### [facility] [place] [address] Recovery Operator Helper: Keagan Holly MDNeutrophils (Bld) [#/Vol]2.724 10*3/uLNormal 1500-7800Quest DiagnosticsComment on above:Performed By: #### 6399, 7600, 09861 #### [facility] [place] [address] Recovery Operator Helper: Keagan Holly MDNeutrophils/100 WBC (Bld)51.4 %NormalQuest DiagnosticsComment on above:Performed By: #### 6399, 7600, 89119 #### [facility] of [address], [address] [place] [address] Recovery Operator Helper: Keagan Holly MDPlatelet mean volume (Bld) [Entitic vol]9.1 fL Normal7.5-12.5Quest DiagnosticsComment on above:Performed By: #### 6399, 7600, 63598 #### [facility] of [address], [address] [place] [address] Recovery Operator Helper: Keagan Holly MDPlatelets (Bld) [#/Vol]335 10*3/uLNormal 140-400Quest DiagnosticsComment on above:Performed By: #### 6399, 7600, 28176 #### [facility] of [address], [address] [place] [address] Recovery Operator Helper: Keagan Holly MDRBC (Bld) [#/Vol]4.18 10*6/uLNormal3.80-5.10 Quest DiagnosticsComment on above:Performed By: #### 6399, 7600, 44445 #### [facility] of [address], [address] [place] [address] Recovery Operator Helper: Keagan Holly MDWBC (Bld) [#/Vol]5.3 10*3/uLNormal3.8-10.8 Quest DiagnosticsComment on above:Performed By: #### 6399, 7600, 08781 #### [facility] of [address], [address] [place] [address] Recovery Operator Helper: Keagan Holly MDCOMPREHENSIVE METABOLIC PANELon 08-04-2024 Albumin [Mass/Vol]4.4 g/dLNormal3.6-5.1Quest DiagnosticsComment on above: Performed By: #### 6399, 7600, 09815 #### [facility] of [address], [address] [place] [address] Recovery Operator Helper: Keagan Holly MDAlbumin/Globulin [Mass ratio]1.8 {ratio}Normal 1.0-2.5Quest DiagnosticsComment on above:Performed By: #### 6399, 7600, 02842 #### [facility] of [address], [address] [place] [address] Recovery Operator Helper: Keagan Holly MDALP [Catalytic activity/Vol]68 U/KDafway88-716 [facility] DiagnosticsComment on above:Performed By: #### 6399, 7600, 20536 #### [facility] of [address], [address] [place] [address] Recovery Operator Helper: Keagan Holly MDALT [Catalytic activity/Vol]15 U/LNormal6-29 Quest DiagnosticsComment on above:Performed By: #### 6399, 7600, 10263 #### [facility] [place] [address] Recovery Operator Helper: Keagan Holly MDAST [Catalytic activity/Vol]18 U/QLuzuko86-73 [facility] DiagnosticsComment on above:Performed By: #### 6399, 7600, 80174 #### [facility] [place] [address] Recovery Operator Helper: Keagan Holly MDBilirubin [Mass/Vol]0.5 mg/dLNormal0.2-1.2 Quest DiagnosticsComment on above:Performed By: #### 6399, 7600, 73027 #### [facility] [place] [address] Recovery Operator Helper: Keagan Holly MDBUN/CREATININE RATIOSEE NOTE:Normal6-22Quest DiagnosticsComment on above:Result Comment: Not Reported: BUN and Creatinine are within reference range.Performed By: #### 6399, 7600, 37611 #### [facility] [place] [address] Recovery Operator Helper: Keagan Holly MDCalcium [Mass/Vol]9.5 mg/dLNormal8.6-10.4Quest DiagnosticsComment on above:Performed By: #### 6399, 7600, 05918 #### [facility] of [address], [address] [place] [address] Recovery Operator Helper: Keagan Holly MDChloride [Moles/Vol]100 mmol/LCtcxse69-527 Quest DiagnosticsComment on above:Performed By: #### 6399, 7600, 83060 #### [facility] of [address], [address] [place] [address] Recovery Operator Helper: Keagan Holly MDCO2 [Moles/Vol]31 mmol/LVppjtq94-70Vkjpw DiagnosticsComment on above:Performed By: #### 6399, 7600, 72954 #### [facility] of [address], [address] [place] [address] Recovery Operator Helper: Keagan LEWISreatinine [Mass/Vol]0.74 mg/dLNormal0.60-1.00 Quest DiagnosticsComment on above:Performed By: #### 6399, 7600, 33823 #### [facility] of [address], [address] [place] [address] Recovery Operator Helper: Keagan Holly MDGFR/1.73 sq M.predicted among non-blacks MDRD (S/P/Bld) [Vol rate/Area]84 mL/min/{1.73_m2}Normal> OR = 60[facility] Comment on above:Performed By: #### 6399, 7600, 09990 #### [facility] [place] [address] Recovery Operator Helper: Keagan Holly MDGlobulin (S) [Mass/Vol]2.5 g/dLNormal1.9-3.7 Quest DiagnosticsComment on above:Performed By: #### 6399, 7600, 84254 #### [facility] [place] [address] Recovery Operator Helper: Keagan Holly MDGlucose [Mass/Vol]88 mg/yPKjqrzg95-94Lisah DiagnosticsComment on above:Result Comment: Fasting reference intervalPerformed By: #### 6399, 7600, 00094 #### [facility] of [address], [address] [place] [address] Recovery Operator Helper: Keagan Holly MDPotassium [Moles/Vol]4.0 mmol/LNormal3.5-5.3 Quest DiagnosticsComment on above:Performed By: #### 6399, 7600, 79216 #### [facility] of [address], [address] [place] [address] Recovery Operator Helper: Keagan Holly MDProtein [Mass/Vol]6.9 g/dLNormal6.1-8.1Quest DiagnosticsComment on above:Performed By: #### 6399, 7600, 88846 #### [facility] of [address], [address] [place] [address] Recovery Operator Helper: Keagan Holly MDSodium [Moles/Vol]138 mmol/ZNmtyva155-203Xpqrl DiagnosticsComment on above:Performed By: #### 6399, 7600, 13177 #### [facility] of [address], [address] [place] [address] Recovery Operator Helper: Keagan Holly MDUrea nitrogen [Mass/Vol]16 mg/dLNormal7-25 Quest DiagnosticsComment on above:Performed By: #### 6399, 7600, 13897 #### [facility] [place] [address] Recovery Operator Helper: Keagan Holly MDLIPID PANEL, STANDARD 46-65-7484Ttgrkyjpcwm [Mass/Vol]261 mg/dLHigh<200Quest DiagnosticsComment on above:Order Comment: FASTING:YES FASTING: YESPerformed By: #### 6399, 7600, 11623 #### [facility] [place] [address] Recovery Operator Helper: Keagan Holly MDCholesterol in HDL [Mass/Vol]66 mg/dLNormal> OR = 50Quest DiagnosticsComment on above:Order Comment: FASTING:YES FASTING: YESPerformed By: #### 6399, 7600, 14246 #### [facility] [address], [address] [place] [address] Recovery Operator Helper: Keagan LEWISholesterol in LDL [Mass/Vol]161 mg/dLHigh [facility] [...] LDL-C. Edwin SS et al. LUL. 2013;310(19): 0159-8209 (http://education.Entelos/faq/TDZ427)Performed By: #### 8399, 7600, 05895 #### [facility] [address], [address] [place] [address] Recovery Operator Helper: Keagan Farrstwest.total/Cholesterol in HDL [Mass ratio]4.0 {ratio}Normal<5.0Quest DiagnosticsComment on above:Order Comment: FASTING:YES FASTING: YESPerformed By: #### 6399, 7600, 79078 #### [facility] [address], [address] [place] [address] Recovery Operator Helper: Keagan Holly MDNON HDL ZWPPWMOBLHB690 mg/dL (calc)High<130 Quest DiagnosticsComment on above:Order Comment: FASTING:YES FASTING: YESResult Comment: For patients with diabetes plus 1 major ASCVD risk factor, treating to a non-HDL-C goal of <100 mg/dL (LDL-C of <70 mg/dL) is considered a therapeutic option.Performed By: #### 6399, 7600, 71906 #### [facility] [address], [address] [place] [address] Recovery Operator Helper: Keagan Holly MDTriglyceride [Mass/Vol]181 mg/dLHigh<150Quest DiagnosticsComment on above:Order Comment: FASTING:YES FASTING: YESPerformed By: #### 6399, 7600, 34064 #### [facility] [address], [address] [place] [address] Recovery Operator Helper: Keagan Holly MDVITAMIN D,25-OH,TOTAL,IAon 29-28-1149BAANNZX D,25-OH,TOTAL,IA35 ng/vXCldbeo30-652Hgnwo DiagnosticsComment on above:Result Comment: Vitamin D Status 25-OH Vitamin D: Deficiency: <20 ng/mL Insufficiency: 20 - 29 ng/mL Optimal: > or = 30 ng/mL For 25-OH Vitamin D testing on patients on D2-supplementation and patients for whom quantitation of D2 and D3 fractions is required, the QuestAssureD(TM) 25-OH VIT D, (D2,D3), LC/MS/MS is recommended: order code 73385 (patients >2yrs). See Note 1 Note 1 For additional information, please refer to http://education.Entelos/faq/ICX423 (This link is being provided for informational/ educational purposes only.)Performed By: #### 6399, 7600, 74162 #### [facility] [address], [address] [place], [place] [address] Recovery Operator Helper: Keagan LOAIZAR DEXA AXIAL SKELETONon [id number] [address] XRay Report Signed Patient: BERENICE SILVA MR#: [id number] : 1945 Acct:[id number] Age/Sex: 78 / F ADM Date: 02/26/24 Loc: RAD Attending Dr: NICKY RIDDLE Ordering Physician: NICKY RIDDLE Date of Service: 02/26/24 Procedure(s): XR DEXA axial skeleton Accession Number(s): [id number] cc: KVNG LINTON ; NICKY RIDDLE [address] [address] Patient Name: BERENICE SILVA MRN: [facility]:[id number] date: 1945 Sex: F Assigned Patient Location: [facility] Current Patient Location: [facility] Accession/Order Number: [id number] Exam Date: 02/26/2024 11:05 Report Date: 02/26/2024 [...] Lorena KL, Prasanna EM, Erik KG, AJ, Nikc ES. The clinician's guide to prevention and treatment of osteoporosis. Osteoporos Int. 2021;3310):1469-3581. doi: 10.1007/b69972-268-54900-g. Epub 2021Nov 16. Erratum in: Osteoporos Int. 2021Feb 15;: PMID: 06161385; PMCID: [id number]. Electronically authenticated by: HALEIGH FINE Date: 02/26/2024 11:36 Dictated By: Haleigh Fine M.D. Signed By: 02/26/24 1139 DD/ 1136 TD/TT: City Assessor:AKSHATHRadiology, Radiologist, - 02/26/2024 [place] [address] XRay Report Signed Patient: BERENICE SILVA MR#: [id number] : 1945 Acct:[id number] Age/Sex: 78 / F ADM Date: 02/26/24 Loc: [facility] Attending Dr: NICKY RIDDLE Ordering Physician: NICKY RIDDLE Date of Service: 02/26/24 Procedure(s): XR DEXA axial skeleton Accession Number(s): [id number] cc: KVNG LINTON ; NICKY RIDDLE [place] [id number] Patient Name: BERENICE SILVA MRN: [id number] date: 1945 Sex: F Assigned Patient Location: [facility] Current Patient Location: [facility] Accession/Order Number: [id number] Exam Date: 02/26/2024 11:05 Report Date: 02/26/2024 [...] prevention and treatment of osteoporosis. Osteoporos Int. 2021;33(10):0044-9748. doi: 10.1007/h93238-378-50376-u. Epub 2021Nov 16. Erratum in: Osteoporos Int. 2021Feb 15;: PMID: 05316089; PMCID: [id number]. Electronically authenticated by: HALEIGH FINE Date: 02/26/2024 11:36 Dictated By: Haleigh Fine M.D. Signed By: 02/26/24 1139 DD/ 1136 TD/TT: City Assessor: TAM [facility] CenterRadiology Study observation (narrative)[facility] [employer]XR DEXA AXIAL SKELETONOrdered By: Radiologist Radiology on [id number] [employer] Work Phone: ct COLONOGRAPHY SCREENINGon 81-85-4088QS COLONOGRAPHY SCREENINGCT COLONOGRAPHY SCREENING CLINICAL INFORMATION: Constipation, [...] Haleigh Curry MD on 01/21/2024 8:17 AMNormalProMedica [place] HospitalCult,Bloodon 37-82-6096Dkpn,BloodSpecimen Description .BLOOD Special Requests 20ML RAC Culture NO GROWTH 5 DAYS Report Status FINAL 10/31/2023[facility] HospitalComment on above: Performed By: #### KEVIN #### [address] [place] [address] Reject Opener: Triny Buckner,BloodSpecimenader Description .BLOOD Special Requests 20ML LFT WRIST Culture NO GROWTH 5 DAYS Report Status FINAL 10/31/2023NoFirelands Regional Medical CenterComment on above: Performed By: #### KEVIN #### [address] [place] [id number] Reject Opener: KAMALA Buckner with Diffon [id number]. Basophil0.03 k/uL Normal0.00-0.20MerMartin [facility] HospitalComment on above:Performed By: #### OZ #### [address] [place], [place] [address] Reject Opener: Vito Buckner.Imm.Granulocyte0.03 k/uLNormal0.00-0.30[facility] HospitalComment on above:Performed By: #### OZ #### [address] [place] [address] Reject Opener: Vito Buckner.Neutrophil (Seg)7.25 k/uLNormal1.50-8.10[facility] HospitalComment on above:Performed By: #### LACDS #### [address] [place] [address] Reject Opener: Ayedn Regan MDBasophils/100 WBC (Bld)0 %Normal0-2[facility] HospitalComment on above:Performed By: #### LACDS #### [address] [place] [address] Reject Opener: Ayden Regan MDEosinophils (Bld) [#/Vol]0.04 10*3/uLNormal 0.00-0.44[facility] HospitalComment on above:Performed By: #### LACDS #### [address] [place] [address] Reject Opener: WILLIAM Bucknerosinophils/100 WBC (Bld)0 %Low1-4[facility] HospitalComment on above:Performed By: #### LACDS #### [address] [place] [address] Reject Opener: Ayden Regan MDErythrocyte distribution width (RBC) [Ratio]12.5 % Uwzgfa09.8-14.4[facility] HospitalComment on above:Performed By: #### LACDS #### [address] [place] [address] Reject Opener: Ayden Regan MDHematocrit (Bld) [Volume fraction]29.2 %Low 36.3-47.1[facility] hospitaly [place] HospitalComment on above:Performed By: #### LACDS #### [address] [place] [id number] Reject Opener: Ayden Regan MDHemoglobin (Bld) [Mass/Vol]9.7 g/dLLow11.9-15.1 [facility] HospitalComment on above:Performed By: #### LACSARITA #### [address] [place] [address] Reject Opener: Dorothy Buckner granulocytes/100 WBC (Bld)0 %Uiwawp0Kurot [facility]iffin HospitalComment on above:Performed By: #### OZ #### [address] [place], [facility]83 Reject Opener: Javier Bucknermphocytes (Bld) [#/Vol]1.83 10*3/uLNormal 1.10-3.70[facility] HospitalComment on above:Performed By: #### OZ #### [address] [place] [address] Reject Opener: Javier Bucknermphocytes/100 WBC (Bld)18 %Gpm25-44Vvmlq [facility]iffin HospitalComment on above:Performed By: #### OZ #### [address] [place] [address] Reject Opener: WASHINGTON Buckner (RBC) [Entitic mass]30.1 uqWiznoz98.2-33.5 [facility] HospitalComment on above:Performed By: #### OZ #### [address] [place], [facility]83 Reject Opener: WASHINGTON BucknerC (RBC) [Mass/Vol]33.2 g/oIJtmftj04.4-34.8[facility] HospitalComment on above:Performed By: #### OZ #### [address] [place], [place] [address] Reject Opener: MOSIE BucknerCV (RBC) [Entitic vol]90.7 rETcttqm53.6-102.9 [facility] HospitalComment on above:Performed By: #### OZ #### [facility] [address] [place] [address] [place] [address] Reject Opener: MOISE Buckneronocytes (Bld) [#/Vol]1.02 10*3/uLNormal0.10-1.20 [facility] HospitalComment on above:Performed By: #### LACDS #### [address] [place] [address] Reject Opener: MOISE Buckneronocytes/100 WBC (Bld)10 %Normal3-12[facility] HospitalComment on above:Performed By: #### LACSARITA #### [address] [place] [address] Reject Opener: Ryan Bucknerutrophil (Seg)71 %Yfqq75-62FkpfiSt. Elizabeth Hospital Comment on above:Performed By: #### OZ #### [address] [place] [address] Reject Opener: Ayden Regan MDNRBC Automated0.0 per [address] [facility] HospitalComment on above:Performed By: #### LACSARITA #### [address] [place] [address] Reject Opener: Humera Buckner mean volume (Bld) [Entitic vol]8.7 fL Normal8.1-13.5[facility] HospitalComment on above:Performed By: #### LACDS #### [address] [place] [address] Reject Opener: CHRIS Bucknerlatelets (Bld) [#/Vol]237 10*3/mPPanbfm007-823 [facility] HospitalComment on above:Performed By: #### LACDS #### [address] [place], [place] [address] Reject Opener: DESTINEE BucknerBC (d) [#/Vol]3.22 10*6/uLLow3.95-5.11[facility] HospitalComment on above:Performed By: #### OZ #### [address] [place], [place] [address] Reject Opener: Ayden Regan MDWBC (Bld) [#/Vol]10.2 10*3/uLNormal3.5-11.3[facility] hospitaly [place] HospitalComment on above:Performed By: #### OZ #### [address] [place], [place] [address] Reject Opener: JOSHUA Buckneromp Metabolic Pr/rfx MGon 82-05-3650Hgdqeeo [Mass/Vol]3.1 g/dLLow3.5-5.2[facility]ercL[facility] HospitalComment on above:Performed By: #### OZ #### [address] [place], [place] [address] Reject Opener: Ayden Regan MDAlbumin/Glob Ratio1.1Qjbflg6.0-2.5[facility] HospitalComment on above:Performed By: #### OZ #### [address] [place], [place] [address] Reject Opener: Linda Bucknerline Phos80 U/QTpjzif97-841Pbvoz Tiffin HospitalComment on above:Performed By: #### OZ #### [facility] [address] [place] [address] Dr. [place], [place] [address] Reject Opener: Ayden Regan MDALT [Catalytic activity/Vol]9 U/LNormal5-33[facility] HospitalComment on above:Performed By: #### OZ #### [address] [place], [place] [address] Reject Opener: Ayden Sturtz, MDAnion gap [Moles/Vol]8 mmol/LLow9-17[facility] HospitalComment on above:Performed By: #### LACDS #### [address] [place] [address] Reject Opener: Ayden Regan MDAST [Catalytic activity/Vol]13 U/LNormal<32[facility] HospitalComment on above:Performed By: #### LACDS #### [address] [place] [address] Reject Opener: Ayden Regan MDBilirubin [Mass/Vol]0.6 mg/dLNormal0.3-1.2[facility] HospitalComment on above:Performed By: #### LACDS #### [address] [place] [address] Reject Opener: Ayden Regan MDBUN/CRE Kewak02Uydubj5-59Fidkx [facility] Comment on above:Performed By: #### LACDS #### [address] [place] [address] Reject Opener: JOSHUA Buckneralcium [Mass/Vol]8.2 mg/dLLow8.6-10.4MerMartin [facility] HospitalComment on above:Performed By: #### LACDS #### [address] [place] [address] Reject Opener: JOSHUA Bucknerhloride [Moles/Vol]106 mmol/JVwxvov59-135Rfypb [facility] HospitalComment on above:Performed By: #### LACDS #### [address] [place] [address] Reject Opener: Ayden Regan MDCO2 [Moles/Vol]26 mmol/FJrwvsl38-12Kfihc [facility] HospitalComment on above:Performed By: #### LACDS #### [address] [place] [address] Reject Opener: JOSHUA Bucknerreatinine [Mass/Vol]0.7 mg/dLNormal0.5-0.9[facility] HospitalComment on above:Performed By: #### LACDS #### [address] [place] [address] Reject Opener: Ayden Regan MDGFR/1.73 sq M.predicted among non-blacks MDRD (S/P/Bld) [Vol rate/Area]mL/min/{1.73_m2}Normal>60MerSt. Vincent's Medical CenterComment on above:Result Comment: These results are not [...] renal tubular secretion.Performed By: #### LACDS #### [address] [place] [address] Reject Opener: Ayden Regan MDGlucose [Mass/Vol]97 mg/xFRqgjwy84-65Owuvo [facility] HospitalComment on above:Performed By: #### LACDS #### [address] [place] [address] Reject Opener: Ayden Regan MDPotassium [Moles/Vol]3.6 mmol/LLow3.7-5.3[facility] HospitalComment on above:Performed By: #### LACDS #### [address] [place] [address] Reject Opener: Ayden Regan MDProtein [Mass/Vol]5.4 g/dLLow6.4-8.3[facility] HospitalComment on above:Performed By: #### LACDS #### [address] [place] [address] Reject Opener: BRITTNEY Bucknerodium [Moles/Vol]140 mmol/JSkqvmd316-149BufdwSt. Elizabeth HospitalComment on above:Performed By: #### LACDS #### [facility] [address] [place] [address] Reject Opener: Ayden Regan MDUrea nitrogen [Mass/Vol]11 mg/dLNormal8-23[facility]. [facility] HospitalComment on above:Performed By: #### LACDS #### [facility] [address] [place] [address] Dr. [place], [place] [address] Reject Opener: Ayden Regan MDCult,Urineon [id number],UrineSpecimen Description .URINE,STRAIGHT CATHETER Culture STREPTOCOCCI, BETA HEMOLYTIC GROUP B 10 to 50,000 CFU/ML Report Status FINAL 10/27/2023NormalSt. Elizabeth HospitalComment on above: Performed By: #### URC #### [facility] [address] [place], [place] [id number] Reject Opener: Nahum Nixon MD [address] [place] [address] Reject Opener: CHRIS Bucknerrocalcitoninon 10-41-8148Ppompfpeqocco5.06 ng/mL Normal0.00-0.09[facility]. [facility] HospitalComment on above:Result Comment: Suspected Sepsis: <0.50 [...] entered into the Change in Procalcitonin Calculator (www.tqques-kku-qiznhnyqjc.com) to determine the patient's Mortality Risk Prognosis In healthy neonates, plasma Procalcitonin (PCT) concentrations increase gradually after , reaching peak values at about 24 hours of age then decrease to normal values below 0.5 ng/mL by 48-72 hours of age.Performed By: #### PRCAL #### [place] [address] [place], [place] [address] Reject Opener: Nahum Nixon [facility] with Diffon [id number]. Basophil0.04 k/uL Normal0.00-0.20Mer[facility] HospitalComment on above:Performed By: #### BRETT HI, CP #### [address] [place] [id number] ( Reject Opener: Vito Buckner.Imm.Granulocyte0.04 k/uLNormal0.00-0.30Mer[facility] HospitalComment on above:Performed By: #### BRETT HI, CP #### [address] [place], [facility]83 Reject Opener: Vito Buckner.Neutrophil (Seg)9.87 k/uLHigh1.50-8.10[facility] HospitalComment on above:Performed By: #### BRETT HI, CP #### [address] [place], [place] [address] Reject Opener: Ayden Regan MDBasophils/100 WBC (Bld)0 %Normal0-2[facility] HospitalComment on above:Performed By: #### BRETT HI, CP #### [address] [place], [facility]83 Reject Opener: Ayden Regan MDEosinophils (Bld) [#/Vol]0.06 10*3/uLNormal 0.00-0.44Mer[facility] HospitalComment on above:Performed By: #### BRETT HI, CP #### [address] [place], [place] [address] Reject Opener: Ayden Regan MDEosinophils/100 WBC (Bld)1 %Normal1-4[facility] HospitalComment on above:Performed By: #### BRETT HI, CP #### [address] [place], [place] [address] Reject Opener: Ayden Regan MDErythrocyte distribution width (RBC) [Ratio]12.1 % Gnsbio41.8-14.4[facility] HospitalComment on above:Performed By: #### BRETT HI, CP #### [address] [place] [address] Reject Opener: Ayden Regan MDHematocrit (Bld) [Volume fraction]37.2 %Normal 36.3-47.1MMercy Health St. [facility] [place] HospitalComment on above:Performed By: #### BRETT HI, CP #### [address] [place], [place] [address] Reject Opener: Ayden Regan MDHemoglobin (Bld) [Mass/Vol]12.6 g/dLNormal 11.9-15.1MMercy Health St. [facility] HospitalComment on above:Performed By: #### BRETT HI, CP #### [address] [place], [place] [address] Reject Opener: Ayden Regan MDImmature granulocytes/100 WBC (Bld)0 %Rjjxwn4AcaqqSt. Elizabeth HospitalComment on above:Performed By: #### BRETT HI, CP #### [address] [place], [place] [address] Reject Opener: Ayden Regan MDLymphocytes (Bld) [#/Vol]0.81 10*3/uLLow1.10-3.70 [facility] HospitalComment on above:Performed By: #### BRETT HI, CP #### [address] [place] [address] Reject Opener: Javier Bucknermphocytes/100 WBC (Bld)7 %Pmi99-93VndqlSt. Elizabeth HospitalComment on above:Performed By: #### BRETT HI, CP #### [address] [place] [address] Reject Opener: MOISE BucknerCH (RBC) [Entitic mass]30.[address]23.2-[address]5 [address] [facility] HospitalComment on above:Performed By: #### BRETT HI, CP #### [address] [place] [address] Reject Opener: WASHINGTON BucknerC (RBC) [Mass/Vol]33.9 g/iAIgvslu48.4-34.8[facility] HospitalComment on above:Performed By: #### BRETT HI, CP #### [address] [address] Dr. [place], [facility]83 Reject Opener: MOISE BucknerCV (RBC) [Entitic vol]89.[address]h19.6-102.9 [address] HospitalComment on above:Performed By: #### BRETT HI, CP #### [address] [place], [facility]83 Reject Opener: MOISE Buckneronocytes (Bld) [#/Vol]0.89 10*3/uLNormal0.10-1.20 [facility] HospitalComment on above:Performed By: #### BRETT HI, CP #### [address] [place] [address] Reject Opener: MOISE Buckneronocytes/100 WBC (Bld)8 %Normal3-12St. Elizabeth HospitalComment on above:Performed By: #### BRETT HI, CP #### [facility] [address] [place] [address] [place] [address] Reject Opener: Beni Buckner (Seg)84 %Zuvl58-67GddetSt. Elizabeth Hospital Comment on above:Performed By: #### BRETT HI, CP #### [address] [place], [facility]83 Reject Opener: CECELIA Buckner Automated0.0 per [address] Elizabeth HospitalComment on above:Performed By: #### BRETT HI, CP #### [address] [place], [facility]83 Reject Opener: Humera Buckner mean volume (Bld) [Entitic vol]8.5 fL Normal8.1-13.5St. Elizabeth HospitalComment on above:Performed By: #### BRETT HI, CP #### [address] [place] [address] Reject Opener: Patrick Buckner (Bld) [#/Vol]312 10*3/uTNaszpa187-718 [facility] HospitalComment on above:Performed By: #### BRETT HI, CP #### [address] [place] [address] Reject Opener: KELLY Buckner (Bld) [#/Vol]4.14 10*6/uLNormal3.95-5.11St. [facility] HospitalComment on above:Performed By: #### BRETT HI, CP #### [address] [place] [address] Reject Opener: OMAR Buckner (Bld) [#/Vol]11.7 10*3/uLHigh3.5-11.3[facility]walk HospitalComment on above:Performed By: #### BRETT HI, CP #### [facility] [address] [place] [address] Reject Opener: Ayden Regan MDCT HEAD WO CONTRASTon 90-20-6712VG HEAD WO CONTRASTEXAMINATION: CT OF THE HEAD [...] Signed by: Seven Moreno MD 10/26/23 Final resultNormalMerSt. Vincent's Medical CenterComp Metabolic Profon 66-46-0789Qxecmom [Mass/Vol]3.9 g/dLNormal3.5-5.2[facility] HospitalComment on above:Performed By: #### BRETT HI, CP #### [facility] [address] [place] [address] Reject Opener: Ayden Regan MDAlbumin/Glob Ratio1.2Eqrksv0.0-2.5St. Elizabeth HospitalComaspirus iron river hospital on above:Performed By: #### BRETT HI, CP #### [facility] [address] [place] [address] Reject Opener: Sujey Buckner Phos87 U/FSrvykz11-585Ensor Tiffin HospitalComment on above:Performed By: #### BRETT HI, CP #### [address] [place], [place] [id number] Reject Opener: Ayden Regan MDALT [Catalytic activity/Vol]12 U/LNormal5-33St. Elizabeth HospitalComment on above:Performed By: #### BRETT HI, CP #### [address] [place] [address] Reject Opener: Ayden Regan MDAnion gap [Moles/Vol]9 mmol/LNormal9-17St. Elizabeth HospitalComment on above:Performed By: #### BRETT HI, CP #### [address] [place], [place] [id number] Reject Opener: Ayden Regan MDAST [Catalytic activity/Vol]15 U/LNormal<32MerSt. Vincent's Medical CenterComment on above:Performed By: #### BRETT HI, CP #### [address] [place], [place] [id number] Reject Opener: Ayden Regan MDBilirubin [Mass/Vol]0.4 mg/dLNormal0.3-1.2MercWaterbury HospitalComment on above:Performed By: #### BRETT HI, CP #### [address] [place], [place] [id number] Reject Opener: Ayden Regan MDBUN/CRE Qpzye72Yavtkk6-77Czqsa [facility] Comment on above:Performed By: #### BRETT HI, CP #### [address] [place] [address] Reject Opener: Ayden Regan MDCalcium [Mass/Vol]9.2 mg/dLNormal8.6-10.4St. Elizabeth HospitalComment on above:Performed By: #### BRETT HI, CP #### [place] [address] [place], [place] [id number] Reject Opener: JOSHUA Bucknerhloride [Moles/Vol]95 mmol/ODir20-107WnjtuSt. Elizabeth HospitalComment on above:Performed By: #### BRETT HI, CP #### [place] [address] [place], [place] 8[address]4083 Reject Opener: JOSHUA BucknerO2 [Moles/Vol]26 mmol/KVrfjhp08-78XfualSt. Elizabeth HospitalComment on above:Performed By: #### BRETT HI, CP #### [address] [place], [place] [id number] Reject Opener: JOSHUA Bucknerreatinine [Mass/Vol]0.8 mg/dLNormal0.5-0.9St. Elizabeth HospitalComment on above:Performed By: #### BRETT HI, CP #### [address] [place], [place] [id number] Reject Opener: Ayden Regan MDGFR/1.73 sq M.predicted among non-blacks MDRD (S/P/Bld) [Vol rate/Area]77 mL/min/{1.73_m2}Normal>60[facility] Comment on above:Result Comment: These results [...] secretion.Performed By: #### BRETT HI, CP #### [address] [place], [place] 8255783 Reject Opener: Ayden Regan MDGlucose [Mass/Vol]119 mg/cNVmgn56-44Pptdk Lynchburg HospitalComment on above:Performed By: #### BRETT HI, CP #### [address] [place], [place] 2164383 Reject Opener: CHRIS Bucknerotassium [Moles/Vol]3.8 mmol/LNormal3.7-5.3[facility] HospitalComment on above:Performed By: #### BRETT HI, CP #### [address] [place] [address] Reject Opener: Ayden Regan MDProtein [Mass/Vol]7.2 g/dLNormal6.4-8.3MParkview Health HospitalComment on above:Performed By: #### BRETT HI, CP #### [address] [place], [facility]83 Reject Opener: Ayden Regan MDSodium [Moles/Vol]130 mmol/BPzs411-721Ozzdu Tiffin HospitalComment on above:Performed By: #### BRETT HI, CP #### [address] [place], [place] [id number] Reject Opener: Ayden Regan MDUrea nitrogen [Mass/Vol]13 mg/dLNormal8-23MerMartin Memorial Hospital HospitalComment on above:Performed By: #### BRETT HI, CP #### [address] [place], [facility]83 Reject Opener: Griselda Bucknerctate, Sepsison 05-42-3612Ovdyvx Acid, Sepsis1.0 mmol/LNormal0.5-1.9[facility] HospitalComment on above:Performed By: #### LACDS #### [address] [place], [place] [id number] Reject Opener: Griselda Bucknerctic Acid, Sepsis1.6 mmol/LNormal0.5-1.9[facility] HospitalComment on above:Performed By: #### LACDS #### [facility] [address] [place] [address] Reject Opener: Salvador Buckner 03-60-1220Dkaqexba, High Sens12 ng/L Normal0-14St. Elizabeth HospitalComment on above:Result Comment: High Sensitivity Troponin values cannot be compared with other Troponin methodologies.Performed By: #### LACDS #### [facility] [address] [place] [address] Reject Opener: Harvinder Buckner, High Sens12 ng/LNormal0-14St. [facility] HospitalComment on above:Result Comment: High Sensitivity Troponin values cannot be compared with other Troponin methodologies.Performed By: #### TROPI, CDP, CP #### [facility] [address] [place] [address] [place] [address] Reject Opener: Rachel Buckneris w/ Microon 80-85-5701Xprlwihzh, SemiQt,UrNegativeNormalNEGSt. Elizabeth HospitalComment on above:Performed By: #### LACDS #### [facility] [address] [place] [address] [place] [address] Reject Opener: Morales Buckner, UrineNegativeNormalNEGSt. Elizabeth Hospital Comment on above:Performed By: #### LACDS #### [facility] [address] [place] [address] Reject Opener: JOSHUA Bucknerlarity ()ClearNormalCLEARSt. Elizabeth Hospital Comment on above:Performed By: #### LACDS #### [facility] [address] [place], [place] [address]83 Reject Opener: JOSHUA Bucknerolor (U)YellowNormalYELMerSt. Vincent's Medical Center Comment on above:Performed By: #### LACDS #### [facility] [address] [place] [address] Reject Opener: Ayden Regan MDEpithelial cells LM Ql (Urine sed)0 TO 1Pusfoj7-72 [facility] HospitalComment on above:Performed By: #### LACDS #### [address] [place], [place] [address]3783 Reject Opener: Ayden Regan MDGlucose Ql (U)NegativeNormalNEGUniversity Hospitals Beachwood Medical Center HospitalComment on above:Performed By: #### LACDS #### [address] [place] [address] Reject Opener: Ayden Regan MDKetones Ql (U)NegativeNormalNEGPaulding County Hospitalcy Lynchburg HospitalComment on above:Performed By: #### LACDS #### [address] [place], [facility]83 Reject Opener: Ayden Regan MDLeukocyte esterase Test strip Ql (U)NegativeNormal NEGSt. Elizabeth HospitalComment on above:Performed By: #### LACSARITA #### [address] [place], [place] [address] Reject Opener: Ayden Regan MDNitrite,UrNegativeNormalNEGSt. Elizabeth Hospital Comment on above:Performed By: #### LACDS #### [facility] [address] [place] [address] Dr. [place]son, [place] [address] Reject Opener: CHRIS Buckner,Ur6.1Tpriku4.0-9.0Paulding County Hospitalcy [facility] HospitalComment on above:Performed By: #### LACDS #### [address] [place], [facility]83 Reject Opener: CHRIS Bucknerrotein Ql (U)NegativeNormalNEGSt. Elizabeth HospitalComment on above:Performed By: #### LACDS #### [facility] [address] [place] [address] Dr. [place], [facility]83 Reject Opener: BRITTNEY Bucknerpec. [place],Ur1.446Qovqef7.010-1.020St. [facility] HospitalComment on above:Performed By: #### LACDS #### [facility] [address] [place] [address] Reject Opener: Rosalie Buckner RBC'sNoneNormal0-2MMercy Health St. [facility] Comment on above:Performed By: #### LACDS #### [facility] [address] [place] [address] Reject Opener: Rosalie Buckner WBC'sNoneNormal0-5[facility] Comment on above:Performed By: #### LACDS #### [address] [place] [address] Reject Opener: Ayden Regan MDUrobilinogen,UrNormalNormal0.0-1.0St. [facility] HospitalComment on above:Performed By: #### LACDS #### [facility] [address] [place] [address] [place] [address] Reject Opener: TAMRA Buckner CHEST PORTABLEon 10-23-3804CO CHEST PORTABLE EXAMINATION: ONE XRAY VIEW OF [...] Signed by: Ayden Siegel MD 10/26/23 Final resultNormalSt. Elizabeth HospitalACID FAST SMEAR AND CXon 49-77-8224Pkou Fast CultureNegativeNormOhioHealth Grady Memorial Hospitale Lesvia HospitalComment on above:Result Comment: No acid fast bacilli isolated after 6 weeks.Performed By: #### AFB #### [facility] [address] [place] [address] Dr. Shari AllenAcid Fast SmearNegativePremier Health Miami Valley Hospital NorthComment on above:Performed By: #### AFB #### [facility] [address] [place] [address] Dr. Shari Sierra Specimen ProcessingConcentrationPremier Health [facility] Hospital North Comment on above:Performed By: #### AFB #### [facility] [address] [place] [address] Dr. Shari Douglass CULTUREon 10-01-3559Ziyakw (Mycology) CultureFinal report [facility] Hospital NorthComaspirus iron river hospital on above:Performed By: #### CXFUN #### [facility] [address] [place] [address] Dr. Shari Odonnell StainFinal reportNoMercy Health Clermont HospitalComment on above:Performed By: #### CXFUN #### [facility] [address] [place] [address] Dr. Shari Palomares 1CommentPremier Health Miami Valley Hospital NorthComment on above:Result Comment: CHINO/Calcofluor preparation: no fungus observed.Performed By: #### CXFUN #### [facility] [address] [place] [address] Dr. Shari Palomares Comment: No yeast or mold isolated after 4 weeks.CULTURE ANAEROBICon 76-64-0750NIJGOHI ANAEROBICCulture Observations: NO GROWTH OF ANAEROBES AT 72 HOURS.[facility] Hospital NorthComment on above: Performed By: #### CXFUN #### [facility] [address] [place] [address] Dr. Shari Veronica OTHERon 58-20-0714TPQFPJF OTHERCulture Observations: Light growth of NORMAL SKIN MARTHA. Culture Observations: NO GROWTH OF ANAEROBES AT 72 HOURS.NormalSumma Health Wadsworth - Rittman Medical CenterComment on above: Performed By: #### CXFUN #### [facility] [address] [address] [address] Shari Dong STAINon 60-32-3458PFCMYECZFW ORGANISMS OBSERVEDPremier Health Miami Valley Hospital NorthComment on above:Performed By: #### GSTAIN #### [facility] [address] [address] [address] Shari AllenDIPHTHEROIDSPremier Health Miami Valley Hospital NorthComaspirus iron river hospital on above:Performed By: #### GSTAIN #### [facility] [address] [address] [address] Sh[address] GuerraTHELIMercy Health St[address] [facility] Warren HospitalComaspirus iron river hospital on above:Performed By: #### GSTAIN #### [facility] [address] [address] [address] Shari HurtadoNGAL ELEMENTSPremier Health Miami Valley Hospital NorthComaspirus iron river hospital on above: Performed By: #### GSTAIN #### [facility] [address] [address] [address] Shari Dong NEG [facility] HospitalComaspirus [facility] river hospital on above: Performed By: #### GSTAIN #### [facility] [address] [address] [address] Shari Dong NEG DIPPLOCOCCIPremier Health Miami Valley Hospital NorthComaspirus iron river hospital on above: Performed By: #### GSTAIN #### [facility] [address] [address] [address] Shari Dong POS BACILLIPremier Health Miami Valley Hospital NorthComaspirus iron river hospital on above: Performed By: #### GSTAIN #### [facility] [address] [address] [address] Shari Dong POSITIVE COCCBlanchard Valley Health System Blanchard Valley HospitalComaspirus iron river hospital on above: Performed By: #### GSTAIN #### [facility] [address] [address] [address] Shari Dong STAIN SOURCERt 2nd ToePremier Health Miami Valley Hospital NorthComaspirus iron river hospital on above:Performed By: #### GSTAIN #### [facility] [address] [address] [address] Shari Gomez_DIPWood County HospitalComment on above:Performed By: #### GSTAIN #### [facility] [address] [address] [address] Shari AllenWBCRARENormalSumma Health Wadsworth - Rittman Medical CenterComment on above:Performed By: #### GSTAIN #### [facility] [address] [address] [address] Shari AllenPOINT OF CARE GLUCOSEon 35-55-1952Yqlnfke [Mass/Vol]109 mg/dL Critically jhkj90-797Jjf [facility] CenterComment on above:Performed By: #### POCGLUC #### [facility] [address] [address] [address] Shari AllenGlucose [Mass/Vol]89 mg/oTLufnqn24-649UvrSumma Health Wadsworth - Rittman Medical Center Comment on above:Performed By: #### POCGLUC #### [facility] [address] [place] [address] Dr. Shari AllenPROF CHEM 8 (BAS METB)on 29-21-6763Nwyon gap [Moles/Vol]12.2 mmol/LNormalSumma Health Wadsworth - Rittman Medical CenterComment on above:Performed By: #### BMP #### [facility] [address] [place] [address] Dr. Shari AllenCalcium [Mass/Vol]9.3 mg/dLNormal8.5-10.1[facility] Comment on above:Performed By: #### BMP #### [facility] [address] [place] [address] Dr. Shari AllenChloride [Moles/Vol]104 mmol/WAnomme57-728KjkSumma Health Wadsworth - Rittman Medical Center Comment on above:Performed By: #### BMP #### [facility] [address] [address] [address] Shari AllenCO2 [Moles/Vol]28.5 mmol/FFhejzi57.0-32.0[facility] Comment on above:Performed By: #### BMP #### [facility] [address] [place] [address] Dr. Shari AllenCreatinine [Mass/Vol]0.83 mg/dLNormal0.55-1.02The [facility] CenterComment on above:Performed By: #### BMP #### [facility] [address] [address] [address] Shari yHattGFR-AF SPANISH>60Normal>=60The [facility] CenterComment on above:Performed By: #### BMP #### [facility] [address] [address] [address] Shari HyattGFR-NON AF SPANISH>60Normal>=60The [facility] CenterComment on above:Performed By: #### BMP #### [facility] [address] [address] [address] Shari AllenGlucose [Mass/Vol]89 mg/dMNtfikv11-880Zdi [facility] Comment on above:Performed By: #### BMP #### [facility] [address] [address] [address] Shari AllenPotassium [Moles/Vol]3.7 mmol/LNormal3.5-5.1[facility] Comment on above:Performed By: #### BMP #### [facility] [address] [address] [address] Shari AllenSodium [Moles/Vol]141 mmol/WDinlfl839-218PbrSumma Health Wadsworth - Rittman Medical Center Comment on above:Performed By: #### BMP #### [facility] [address] [address] [address] Shari AllenUrea nitrogen [Mass/Vol]18.0 mg/dLNormal7.0-18.0The [facility] CenterComment on above:Performed By: #### BMP #### [facility] [address] [address] [address] Shari Rey nitrogen/Creatinine [Mass ratio]21.7 mg/mgNormalThe [facility] CenterComaspirus iron river hospital on above:Performed By: #### BMP #### [facility] [address] [address] [address] Shari AllenCAMDEN OF MCLAR[facility] GLUCOSEon 89-20-0898Lgurqur [Mass/Vol]86 mg/dL Bvmjhi40-070Yxx [facility] CenterComment on above:Performed By: #### POCGLUC #### [facility] [address] [place] [address] Dr. Shari AllenGlucose [Mass/Vol]95 mg/yLRrajrq34-793Rkk [facility] Comment on above:Performed By: #### POCGLUC #### [facility] [address] [place] [address] Dr. Shari DallasC AUTO DIFFon 61-77-2096POJB #0.0 103/ulNormal0.0-0.1The [facility] CenterComment on above:Performed By: #### CBC #### [facility] [address] [place] [address] Dr. Shari AllenBasophils/100 WBC (Bld)0.5 %Normal0.2-2.0[facility] Comment on above:Performed By: #### CBC #### [facility] [address] [place] [address] Dr. Shari Zamora #0.2 103/ulNormal0.0-0.7The [facility] CenterComment on above: Performed By: #### CBC #### [facility] [address] [place] [address] Dr. Shari Hyattosinophils/100 WBC (Bld)2.9 %Normal0.9-7.0[facility] Comment on above:Performed By: #### CBC #### [facility] [address] [place] [address] Dr. Shari Hyattrythrocyte distribution width (RBC) [Ratio]12.6 %Qbcsmc04.0-15.0 The [facility] CenterComment on above:Performed By: #### CBC #### [facility] [address] [place] [address] Dr. Shari AllenHematocrit (Bld) [Volume fraction]38.2 %Fzrhck72.0-48.0The [facility] CenterComment on above:Performed By: #### CBC #### [facility] [address] [place] [address] Dr. Yilan ChangHemoglobin (Bld) [Mass/Vol]12.4 g/qXWtxchh04.0-16.0The [facility] CenterComment on above:Performed By: #### CBC #### [facility] [address] [place] [address] Dr. Shari Da Silva #0.01 10e3/ulNormal0.00-0.03The [facility] CenterComment on above:Performed By: #### CBC #### [facility] [address] [place] [address] Dr. Shari Da Silva %0.2 %Normal0.0-0.5The [facility] CenterComment on above: Performed By: #### CBC #### [facility] [address] [place] [address] Dr. Shari Batlazar #2.0 103/ulNormal1.2-3.8The [facility] CenterComment on above:Performed By: #### CBC #### [facility] [address] [place] [address] Dr. Shari Thorntonhocytes/100 WBC (Bld)31.7 %Vntirg72.5-60.0The [facility] CenterComment on above:Performed By: #### CBC #### [facility] [address] [place] [address] Dr. Shari FaustinUAL DIFF REQNONormalThe [facility] CenterComment on above: Performed By: #### CBC #### [facility] [address] [place] [address] Dr. Shari Herrera (RBC) [Entitic mass]30.7 sxSpcrkz96.7-34.0The [facility] CenterComment on above:Performed By: #### CBC #### [facility] [address] [place] [address] Dr. Shari Herrera (RBC) [Mass/Vol]32.5 g/aRQlrwyr80.9-35.2The [facility] HospitalComment on above:Performed By: #### CBC #### [facility] [address] [place] [address] Dr. Shari Rodriguez (RBC) [Entitic vol]94.6 lSAljmev83.0-99.0The [facility] CenterComment on above:Performed By: #### CBC #### [facility] [address] [place] [address] Dr. Shari Sagastume #0.5 103/ulNormal0.3-0.8The [facility] CenterComment on above:Performed By: #### CBC #### [facility] [address] [place] [address] Dr. Shari Mcwilliamsocytes/100 WBC (Bld)8.6 %Normal1.7-12.0The [facility] Comment on above:Performed By: #### CBC #### [facility] [address] [place] [address] Dr. Shari Muniz #3.5 103/ulNormal1.4-6.5The [facility] CenterComment on above:Performed By: #### CBC #### [facility] [address] [place] [address] Dr. Shari Adameutrophils/100 WBC (Bld)56.1 %Rqxpxc81.0-75.0The [facility] CenterComment on above:Performed By: #### CBC #### [facility] [address] [place] [address] Dr. Shari Abarca mean volume (Bld) [Entitic vol]8.5 fLCritically low 9.5-13.5The [facility] CenterComment on above:Performed By: #### CBC #### [facility] [address] [place] [address] Dr. Shari AllenPLT304 103/iuEfypkt888-121Zru [facility] CenterComment on above: Performed By: #### CBC #### [facility] [address] [place] [address] Dr. Shari AllenRBC4.04 106/ulCritically low4.20-5.40The [facility] CenterComment on above:Performed By: #### CBC #### [facility] [address] [place] [address] Dr. Shari AllenWBC6.2 103/ulNormal4.0-11.0The [facility] CenterComment on above: Performed By: #### CBC #### [facility] [address] [place] [address] Dr. Shari AllenCovid-19 PCR ([facility]CHAR[facility])on 93-57-8622BVGD-CoV-2 (COVID-19) RNA LEANN+probe Ql (Unsp spec)Not detectedNormalNOT DETECTEDThe [facility] Comment on above:Result Comment: This test is not yet approved or cleared by the [place] FDA. When there are no FDA-approved or cleared tests available, and other criteria are met, FDA can make tests available under an emergency access mechanism called an Emergency Use Authorization (EUA). The EUA for this test is supported by the Electrical Engineering Drafting Officer of Health and Human Service's (HHS's) declaration [...] consistent with SARS-CoV-2.Performed By: #### CXFUN #### [facility] [address] [place] [address] Dr. Shari AllenPROF CHEM 8 (BAS METB)on 56-74-3528Pzpyp gap [Moles/Vol]11.1 mmol/LNormalThe [facility] CenterComment on above:Performed By: #### BMP #### [facility] [address] [place] [address] Dr. Shari AllenCalcium [Mass/Vol]9.0 mg/dLNormal8.5-10.1[facility] Comment on above:Performed By: #### BMP #### [facility] [address] [place] [address] Dr. Shari AllenChloride [Moles/Vol]104 mmol/VGvautb13-957Kim [facility] Comment on above:Performed By: #### BMP #### [facility] [address] [address] [address] Shari AllenCO2 [Moles/Vol]29.7 mmol/NIjrajt77.0-32.0The [facility] Comment on above:Performed By: #### BMP #### [facility] [address] [address] [address] Shari AllenCreatinine [Mass/Vol]0.80 mg/dLNormal0.55-1.02The [facility] Medical CenterComment on above:Performed By: #### BMP #### [facility] [address] [place] [address] Dr. Mccarthy ChangEGFR-AF SPANISH>60Normal>=60The [facility] CenterComment on above:Performed By: #### BMP #### [facility] [address] [place] [address] Dr. Shari HyattGFR-NON AF SPANISH>60Normal>=60The [facility] CenterComment on above:Performed By: #### BMP #### [facility] [address] [place] [address] Dr. Shari AllenGlucose [Mass/Vol]87 mg/sYFpvwtm61-506Wmi [facility] Comment on above:Performed By: #### BMP #### [facility] [address] [address] [address] Shari AllenPotassium [Moles/Vol]3.8 mmol/LNormal3.5-5.1The [facility] Comment on above:Performed By: #### BMP #### [facility] [address] [address] [address] Shari AllenSodium [Moles/Vol]141 mmol/ZMwueev125-277Dcr [facility] Comment on above:Performed By: #### BMP #### [facility] [address] [address] [address] Shari AllenUrea nitrogen [Mass/Vol]14.0 mg/dLNormal7.0-18.0The [facility] HospitalComment on above:Performed By: #### BMP #### [facility] [address] [address] [address] Shari AllenUrea nitrogen/Creatinine [Mass ratio]17.5 mg/mgNoMercy Health Clermont HospitalComment on above:Performed By: #### BMP #### [facility] [address] [address] [address] Shari Allen Vital Signs Date TimeVital SignValuePerforming UrnuctgfpPrkynuve42-90-3624 10:110400Body eebomh801.3 cmKaren Hemmer PA Work Phone: [phone] [place], [place] [address]Eubydxbgxs29-35-1444 10:11040Body mass index (BMI) [Ratio]20.33 kg/g2Vrequ Hemmer PA Work Phone: [phone] [place], [place] [address]Txskafoblg33-66-7525 10:11-040Body rpihpu49.13 kgKaren Hemmer PA Work Phone: [phone] [place], [place] [address]Zsqtvucdxr20-98-4138 10:11-0400Diastolic blood lxikjuxo45 mm[Hg]Nicky Hemmer PA Work Phone: [phone] [place], [place] [address]Stpukssppr27-94-4820 10:11-0400Heart rate71 /min Nicky Hemmer PA Work Phone: [phone])[facility] [place], [place] [address]Qtwqnqchvw39-23-4695 10:11-0400Respiratory rate16 /minJosueen Hemmer PA Work Phone: [phone])[facility] [place], [place] [address]Lbwjapumrd38-57-1207 10:11-3377XgW5% (BldA) [Mass fraction]96 %Nicky Hemmer PA Work Phone: [phone])[facility] [place], [place] [address]Nabozqsinp96-71-0665 10:11-0400Systolic blood fnvipzmz368 mm[Hg]Nicky Hemmer PA Work Phone: [phone])[facility] [place], [place] [address]Qqoctpaugx19-07-5982 09:29-0400Body mastag698.3 cmSmychal Starr YARD SPECIALIST Work Phone: [phone] SystemSt. [facility] CenterCmhsllsibm25-07-2997 09:29-0400Body mass index (BMI) [Ratio]20.73 kg/u9Rdxgycshree Starr YARD SPECIALIST Work Phone: [facility] CenterRrnhurvggv20-21-7838 09:29-0400Body .41 kgLolashree Starr YARD SPECIALIST Work Phone: [facility] CenterEqghjltpxs22-73-0562 09:29-0400Diastolic blood zqudkuqx89 mm[Hg]Tsering Starr YARD SPECIALIST Work Phone: [phone] CenterPmkcakfblz59-28-6436 09:29-0400Heart rate64 /min Tsering Starr YARD SPECIALIST Work Phone: [facility] CenterPirqjpiyja56-98-7175 09:29-0400Respiratory rate16 /minSmychal Dg YARD SPECIALIST Work Phone: [phone] CenterJjzudvphhy68-41-9827 09:29-6191HjD5% (BldA) [Mass fraction]95 %Tsering Starr YARD SPECIALIST Work Phone: [phone] CenterNlracvbzlk74-29-4105 09:29-0400Systolic blood myolmmsy142 mm[Hg]Tsering Starr YARD SPECIALIST Work Phone: [facility] CenterSixcnnmouy64-43-0947 09:10-0500Body pankpf641.3 cmKaren Hemmer PA Work Phone: [phone]7077[facility] CenterWjispthade07-82-2783 09:10-0500Body mass index (BMI) [Ratio]19.67 kg/m9Meuim Hemmer PA Work Phone: [phone] CenterOwpdkvrajb33-73-7092 09:10-0500Body orexvi39.96 kgKaren Hemmer PA Work Phone: [facility] CenterSekmdlsikv79-15-2829 09:10-0500Diastolic blood mogktonb10 mm[Hg]Nicky Hemmer PA Work Phone: [phone] [place], [place] [address]Btebiaxhai16-13-4236 09:10-0500Heart rate64 /min Nicky Hemmer PA Work Phone: [facility] CenterZwpmivwcsp27-30-4690 09:10-0500Respiratory rate16 /minKaren Hemmer PA Work Phone: [facility] CenterQpskihpnzw69-21-3917 09:10-8178YcH1% (BldA) [Mass fraction]99 %Nicky TURNER Work Phone: NOThree Rivers HealthcareFjegouddut83-67-1704 09:10-0500Systolic blood ebzeoswi865 mm[Hg]Nicky TURNER Work Phone: NOThree Rivers HealthcareJxwaadtbwv00-83-4152 15:10-0400Body gymqxv047.3 cmKvng Linton MD Work Phone: [phone] Rivers HealthcareYfnjnzliba97-11-1590 15:10-0400Body mass index (BMI) [Ratio]19.25 kg/k5SmzmvqKvng Linton MD Work Phone: [phone] Rivers HealthcareFnyekbqxai04-76-0675 15:10-0400Body zciqsi44.6 kg Kvng Linton MD Work Phone: NOThree [facility] HealthcareTcowviybjp48-55-5888 15:10-0400Diastolic blood newwsuma84 mm[Hg]Kvng Linton MD Work Phone: [phone] Rivers HealthcareGtzzjthuaz92-67-0401 15:10-0400Heart rate77 /min Kvng Linton MD Work Phone: [phone] Rivers HealthcareIwobgjwogy72-36-7053 15:10-7583InJ9% (BldA) [Mass fraction]100 %Kvng Linton MD Work Phone: NOThree Rivers HealthcareHokqwhxlax01-39-2543 15:10-0400Systolic blood goswqbtx908 mm[Hg]Kvng Linton MD Work Phone: NOThree Rivers HealthcareTdirgngppa91-70-7125 11:26-0500Body daqpls911.3 cmKvng Linton MD Work Phone: NOThree Rivers HealthcareQqfntexfrl72-48-1900 11:26-0500Body mass index (BMI) [Ratio]19.8 kg/m8NzylcoKvng Linton MD Work Phone: NOThree Rivers HealthcareBfznfowxxy37-94-3201 11:26-0500Body vajpsg91.41 kgKvng Linton MD Work Phone: NOThree [facility] HealthcareVeqhufehaw47-41-8332 11:26-0500Diastolic blood zgqtespb54 mm[Hg]Kvng Linton MD Work Phone: noThree Rivers HealthcareNyjxtdasrb33-54-4234 11:26-0500Heart rate61 /min Kvng Linton MD Work Phone: NOThree Rivers HealthcareYkuyuclpju93-78-1472 11:26-9076DuW2% (BldA) [Mass fraction]99 %Kvng Linton MD Work Phone: noThree Rivers HealthcareQonoklgjjw22-83-3643 11:26-0500Systolic blood unqrijyy431 mm[Hg]Kvng Linton MD Work Phone: [facility] Encounters Encounter DateEncounter TypeCare ProviderFacilityStart: 03-16-2025 End: 39-11-6121bzcsgjcsyfRCLAWAZV WILSONNot AvailableStart: 03-16-2025 End: 17-29-8362Priaik follow up visit related to original Veronika Romero MD Work Phone: [facility] DermatologyComment on above:Encounter for removal of suturesStart: 03-16-2025 End: 90-71-1990Bcqkgi Riley Romero MD Work Phone: [facility] DermatologyStart: 03-16-2025 End: 64-81-8352Jzgjgj Riley Romero MD Work Phone: [facility] DermatologyStart: 03-02-2025 End: 72-13-7892Etcgrbb encounter procedureKatlin Romero MD Work Phone: [facility] DermatologyComment on above:Epidermal inclusion cyst (Primary Dx); PainStart: 03-02-2025 End: 21-93-0359ebczruuxorCZNLKIWC WILSONNot AvailableStart: 03-02-2025 End: 22-48-1620Lxqldx Riley Romero MD Work Phone: [facility] DermatologyStart: 03-02-2025 End: 08-58-8069Alufaz Riley Romero MD Work Phone: [facility] DermatologyStart: 02-23-2025 End: 88-47-9101Apswjltarun TURNER Work Phone: [facility] [place] [facility] MedinceStart: 02-23-2025 End: 20-98-6513Akycbctarun TURNER Work Phone: [facility] [place] [facility] MedinceStart: 02-23-2025 End: 96-19-8820Sewhzdb encounter Manolo TURNER Work Phone: [facility] [place] [...] left-sided sciatica; Left sided sciaticaStart: 02-23-2025 End: 77-14-9582hucyyyqyfwXEUTB M HEMMERNot AvailableStart: 01-27-2025 End: 50-06-4066Ortdreszs Result EncounterGeneric External Data ProviderNOMS External Department UnsolicitedStart: 01-27-2025 End: 14-21-9619Dcqpyyoyv Result EncounterGeneric External Data ProviderNOMS External Department UnsolicitedStart: 12-30-2024 End: 74-86-3054Bggcli flowsheetAlison L Charlotte PA Work Phone: [facility] TSR DERMStart: 12-30-2024 End: 21-14-8373Vhhcgn flowsheetAlison L Charlotte PA Work Phone: [facility] TSR DERMStart: 12-30-2024 End: 29-62-9148Sqffnc outpatient new 30 minutesAlison L Charlotte PA Work Phone: [facility] TSR DERMComment on above:Epidermal inclusion cyst (Primary Dx); Localized tendernessStart: 12-30-2024 End: 60-60-1784cgtruimeslFWQEQU L WINANSNot AvailableStart: 11-11-2024 End: 50-20-9616Wzzwtu flowsMerlene Starr NP Work Phone: [facility] CI FMStart: 11-11-2024 End: 97-19-3747Qmoyri Brennen Starr YARD SPECIALIST Work Phone: [facility] CI FMStart: 11-11-2024 End: 09-67-4677Sqqxsf outpatient visit 25 minutesTsering Starr YARD SPECIALIST Work Phone: [facility] CI FMComment on above:Essential (primary) hypertension (CMS/HCC) (Primary Dx); Rheumatoid arthritis, unspecified; Infected sebaceous glandStart: 11-11-2024 End: 20-60-1756ksvlfidijqGXJNSK M SHIVELYNot AvailableStart: 09-18-2024 End: 37-28-6365BbqcdeRxcbfh B Berry MD Work Phone: [facility] CI FMComment on above:Primary osteoarthritis, unspecified site; Inflammatory and toxic neuropathy (CMS/HCC); Neurogenic painStart: 08-25-2024 End: 07-55-8853Eccddvypd encounterNicky TURNER Work Phone: [facility] CI FMStart: 07-30-2024 End: 96-38-1463Pgwdus Lisa TURNER Work Phone: [facility] CI FMStart: 07-30-2024 End: 82-51-3794Bsrpjz Lisa TURNER Work Phone: [facility] CI FMStart: 07-30-2024 End: 63-13-6043Zyjehz outpatient visit 25 minutesNicky TURNER Work Phone: [facility] CI FMComment on above:Essential (primary) hypertension (CMS/HCC) (Primary Dx); Restless legs syndrome (RLS); History of sepsis; Burning sensation; Vitamin D deficiency; Snoring; Apneic episodeStart: 07-30-2024 End: 72-53-5058yricydkqvdAMRFT M HEMMERNot AvailableStart: 06-30-2024 End: 93-53-5274PtvwmvWqziny B Berry MD Work Phone: [facility] CI FMComment on above:Primary osteoarthritis, unspecified siteStart: 05-08-2024 End: 89-55-3084OsbabcDuewm Dukles LPNNOMS CI FMComment on above:Primary osteoarthritis, unspecified siteStart: 05-04-2024 End: 14-57-0516Xtlljy outpatient visit 15 minutesKvng Linton MD Work Phone: [facility] CI FMComment on above:Follicular cyst of skin and subcutaneous tissue (Primary Dx); Carbuncle and furuncle of trunk; Essential hypertension (CMS/HCC)Start: 05-04-2024 End: 95-75-3106kwhfxebbmlVZUCWJ B BERRYNot AvailableStart: 05-04-2024 End: 06-72-2664Fiauxq Munira Linton MD Work Phone: [facility] CI FMStart: 05-04-2024 End: 56-20-3544Lzbisi Munira Linton MD Work Phone: [facility] CI FMStart: 04-06-2024 End: 25-82-5650Oypixoebi Sonido Linton MD Work Phone: noms CI FMStart: 03-14-2024 End: 66-97-8926Tkjwucsymi and management of inpatientVERN D [facility] HospitalStart: 03-13-2024 End: 03-55-1325Tarclcattk and management of inpatientSEBASTIAN [facility] HospitalStart: 03-13-2024 End: 75-87-2793Ykmxlnlhky and management of inpatientSEBASTIAN [facility] HospitalStart: 03-05-2024 End: 64-00-0559njvlalwhvxJKHCSVTulane–Lakeside Hospital HospitalStart: 02-26-2024 End: 32-87-7234Wmztxjodw Result EncounterNicky TURNER Work Phone: noms External Department UnsolicitedStart: 02-26-2024 End: 32-35-1541Qsnsvyyoh Result Harry TURNER Work Phone: noms External Department UnsolicitedStart: 02-25-2024 End: 42-99-8601apspwnoohdLYXTPHVYCABFerry [facility] Start: 02-12-2024 End: 69-29-8381zktfawgjkkRXFLFMUGrays Harbor [facility] Start: 01-16-2024 End: 01-02-7313insrpajsxaPYRJHIAIndian Health Service Hospital HospitalStart: 12-20-2023 End: 71-24-7055Poplxyyihq and management of inpatientDAVID M [facility] HospitalStart: 12-19-2023 End: 65-32-3642Prirpcoiuk and management of inpatientSAINT [facility] HospitalStart: 11-28-2023 End: 33-39-0795dmvhowbhgnLGJHGAY A [facility] Start: 10-26-2023 End: 95-71-4121Zqtieasvmq and management of inpatientCHRISTOPHER D NAVEENVaishnavimyah [facility] HospitalStart: 31-07-6743ukfbshruvhPlplompu:[place]kyStart: 09-04-2023 Bamboo Munira Linton MD Work Phone: [facility] CI FMStart: 26-99-1415Fzprin Munira Linton MD Work Phone: [facility] CI FMStart: 09-04-2023 End: 98-83-5103Paxsvxiujqtz care manage srvc 14 day dischargeDrosa Linton MD Work Phone: [facility] CI FMComment on above:TIA (transient ischemic attack) (Primary Dx); Urinary frequency; Dyslipidemia (CMS/HCC); Essential hypertension (CMS/HCC)Start: 11-13-2022 End: 16-64-2677mrgrysarieXG DANIEL BERRYFacility:Z2Vjyck: 11-05-2022 End: 42-80-2853libadlxmykYJ KVNG LIANETFacility:O7Uprtw: 10-22-2022 End: 78-95-2290rmtyxthujhUJ KVNG LIANETFacility:U8Agpvn: 70-26-2380Ichukxcwd for preprocedural cardiovascular examinationPETER D [facility] HospitalStart: 31-81-3442Feyhxfofw for preprocedural laboratory examinationPETER D [facility] HospitalStart: 10-16-2022 End: 25-91-1177yzeldxfmydMK KVNG LIANETFacility:V0Qhilz: 10-16-2022 End: 70-37-4794Eczmzwdoa for preprocedural cardiovascular examination KVNG LIANETFacility:S5Cjzvt: 10-09-2022 End: 79-23-6958syicqgleseYJ KVNG LIANETFacility:Q2Akffz: 09-25-2022 End: 64-73-1698jhupgpahdbTE KVNG LIANETFacility:Y4Kawee: 09-18-2022 End: 18-99-5211hhaaavzicaKC KVNG LIANETFacility:W2Bkire: 07-27-2022 End: 36-96-6671ooffyyjzduSC KVNG LIANETFacility:O4Euxfg: 06-19-2022 End: 23-41-0950ivhvckxzzfQL KVNG LIANETFacility:M9Bjkjf: 06-01-2022 End: 84-72-3542iopxxrypgsZJDDE D HIGHLANDERFacility:Z1Pnwsq: 05-25-2022 End: 18-31-2622eitigwicrjBKFNZ D HIGHLANDERFacility:V7Prfqw: 05-18-2022 End: 69-86-5485tcworidilcHIEHF D HIGHLANDERFacility:O1Gugce: 05-10-2022 End: 81-34-8203cgupqeopukCLZQI D HIGHLANDERFacility:Y1Bpvlp: 05-07-2022 End: 98-53-3343bacjlxwabvBSTDW D HIGHLANDERFacility:M7Ktwgs: 05-02-2022 End: 88-74-9724wezbewnqddEZJIG D HIGHLANDERFacility:G4Xgwrq: 04-30-2022 End: 23-40-8379rxctnrewguYGXTO D HIGHLANDERFacility:P8Zzuvz: 03-23-2022 End: 64-77-9822hplitymdoeDLWKS D HIGHLANDERFacility:P8Gnmwl: 03-16-2022 End: 74-54-5006tjgwcihhdbDBGHN D HIGHLANDERFacility:Z5Wksuo: 03-02-2022 End: 58-27-1361azhlutoqvuYCBUR D HIGHLANDERFacility:A9Qywfc: 02-23-2022 End: 38-08-1565dwwdqywfheONOYI D HIGHLANDERFacility:F9Eddow: 01-26-2022 End: 97-30-6211sbblxdfwieADNHH D HIGHLANDERFacility:H9Prfbg: 01-18-2022 End: 75-04-2096xbulbwauzqAPZGJ D HIGHLANDERFacility:F4Fsmes: 01-11-2022 End: 44-91-2791naculwjwbxYZKLM D HIGHLANDERFacility:U5Ifqzw: 01-04-2022 End: 91-16-4696vpxtyhiwzqFC KVNG BERRYFacility:G4Oajqq: 48-17-6692bmgynhyornUE KVNG LINTONFacility:H1 Procedures DateProcedureProcedure DetailPerforming ClinicianStart: 60-00-9988JGDWJULIETTE Romero MD Work Phone: Start: 98-75-5121TQJZJULIETTE Romero MD Work Phone: Start: 44-81-0172BB FOOT RT MIN 3VGeneric External Data ProviderStart: 37-46-2614EG DEXA AXIAL SKELETONNicky TURNER Work Phone: Start: 21-44-6593Vqclcw-up visitFollow-upMICHAEDes Chris LUCY Plan of Treatment DateCare ActivityDetailAuthorStart: 08-05-2026Medicare Annual Wellness (AWV) Medicare Annual Wellness (AWV)[facility] HealthcareStart: 58-47-7307Yxtnujuzt for malignant neoplasm of colonNOMS HealthcareStart: 75-67-0375Gbrnnqynt vaccination [facility] HealthcareStart: 03-16-2025 End: 03-69-3728Hsapvwv encounter /26/2025 3:30 PM EDT Office Visit [facility] [facility] [address] [place] [id number] Katlin Romero MD [address] [place] [address] [facility] [place] [facility]ermatologyStart: 03-02-2025 End: 91-65-9780Tnikpkh encounter procedureNOMS SWS DERMComment on above:Arrived Start: 02-23-2025 End: 30-63-9766Beccwwq encounter riqphovmx51/05/2025 10:00 AM EDT Office Visit [facility] [place] [facility] [address] [place] [phone] Nicky Riddle PA [address] [place] [address] ArrivedNOMS [place] Family MedinceComment on above:ArrivedStart: 07-18-2025Medicare Annual Wellness (AWV)Medicare Annual Wellness (AWV)[facility] HealthcareStart: 01-06-2025 End: 28-44-7093Aotgzkn encounter ratlqbfyo73/18/2025 11:00 AM EDT Office Visit [facility] [address] [place] [phone] Tsering Starr, YARD SPECIALIST [address] [place] [address] [facility] CI FMStart: 12-30-2024 End: 17-76-2946Oyxiokp encounter /11/2025 12:50 PM EDT Office Visit [facility] [address] [place] [address] Anival Gilman, PA [address] [place], [place] [address] ArrivedNOMS TSR DERMComment on above:ArrivedStart: 11-23-2024 End: 22-65-1716Jtrvldd encounter wbvslsnpu20/05/2025 4:00 PM EDT Office Visit [facility] [address] [place] [address] Kvng Linton MD [address] [place] [address] [facility] CI FMStart: 11-11-2024 End: 69-60-9014Eynlmnx encounter xwqlypxfx59/23/2025 9:30 AM EDT Office Visit [facility] [address] [place] [address] Tsering Starr, YARD SPECIALIST [address] [place] [address] ArrivedNOMS CI FMComment on above:ArrivedStart: 08-03-2024 End: 44-70-2582Qlhnzfk encounter procedureNOMS CI FMStart: 07-30-2024 End: 664995-cfdprqwrfrrzlw D3 [Mass/volume] in Serum or PlasmaVitamin D 25 hydroxy Total Lab Routine Vitamin D deficiency Expected: 07/30/2024 (Approximate), Expires: 07/30/2025N[facility] HealthcareComment on above:Expected: 07/30/2024 (Approximate), Expires: 07/30/2025Start: 07-30-2024 End: 16-26-4183LVF W Auto Differential panel - BloodCBC and differential Lab Routine Essential (primary) hypertension (CMS/HCC) History of sepsis Expected: 07/30/2024 (Approximate), Expires: 07/30/2025[facility] Work Phone: Comment on above:Expected: 07/30/2024 (Approximate), Expires: 07/30/2025Start: 07-30-2024 End: 47-77-4303Zkxgjmdijejff metabolic 2000 panel - Serum or PlasmaComprehensive metabolic panel Lab Routine Essential (primary) hypertension (CMS/HCC) Expected: 07/30/2024 (Approximate), Expires: 07/30/2025NO[facility] HealthcareComment on above:Expected: 07/30/2024 (Approximate), Expires: 07/30/2025Start: 07-30-2024 End: 91-67-0570Tnmjo 1996 panel - Serum or PlasmaLipid panel Lab Routine Essential (primary) hypertension (CMS/HCC) Expected: 07/30/2024 (Approximate), Expires: 07/30/2025[facility] HealthcareComment on above:Expected: 07/30/2024 (Approximate), Expires: 07/30/2025Start: 07-30-2024 End: 13-74-0930Dsqmuca encounter fyyegqcyo23/09/2025 9:00 AM EST Office Visit [facility] [address] [facility] [address] [place] [address] Nicky Riddle PA [address] [facility] [[email or web address]] [address] [place] [address] ArrivedNOMS CI FMComment on above:ArrivedStart: 05-04-2024 End: 10-96-5286Ukrgfdc encounter hcoernnew19/14/2024 3:15 PM EDT Office Visit [facility] [address] [place] [address] Kvng Linton MD [address] [facility] [[email or web address]] [address] [place] [address] ArrivedNOMS CI FMComment on above:ArrivedStart: 03-22-2024 Influenza vaccinationInfluenza Vaccine (#1)[facility] HealthcareStart: 09-04-2023 End: 08-69-4148Bqtjftopnqgulf 2D completeEchocardiogram 2D complete Echocardiography Routine TIA (transient ischemic attack) Expected: 09/04/2023 (Approximate), Expires: 09/04/2025[facility] Work Phone: Comment on above:Expected: 09/04/2023 (Approximate), Expires: 09/04/2025Start: 09-04-2023 End: 77-07-8142Nsbnery encounter coispmgzj48/14/2024 11:30 AM EST Office Visit [facility] [address] [facility] [address] [place] [phone] Kvng Linton MD [address] [facility] [[email or web address]] [address] [place] [address] ArrivedNOAZ CI FMComment on above:ArrivedStart: 05-07-2023 Medicare Annual Wellness (AWV)Medicare Annual Wellness (AWV)[facility] Healthcare Start: 29-16-3536Raykhdbze vaccinationInfluenza Vaccine (#1)[facility] Start: 17-60-1970Pxthyswtm for malignant neoplasm of colonSt. [facility] Dermatopathology examDermatopathology exam Pathology and Cytology Timed Epidermal inclusion cyst Release Upon Ordering for 1 Occurrences starting 03/02/2025[facility] Work Phone: comment on above:Release Upon Ordering for 1 Occurrences starting 03/02/2025 Immunizations Immunization DateImmunizationNotesCare BfltovxfYldxcule67-25-4137Gzenpfpju, High-dose Seasonal, Quadrivalent, Preservative Marleny Linton MD Work Phone: [facility] CenterWjnszdiyni77-40-3329ptkwmcawe virus vaccine, unspecified formulationKvng Linton MD Work Phone: [facility] CenterPdpclrhbwi29-97-4450vlavmarfs, high dose seasonal, preservative-Marleny Linton MD Work Phone: [facility] CenterPiyqtkuwkn40-97-1976Erxirvpbg, High-dose Seasonal, Quadrivalent, Preservative Marleny Linton MD Work Phone: [phone] [place], [place] [address]Evqujurfnf25-64-7437dveoudzetgfp conjugate vaccine, 13 valKimi Linton MD Work Phone: [phone] [place], [place] [address]Xzyxtvtpqc11-28-2035ihfucijiq, high dose seasonal, preservative-Marleny Linton MD Work Phone: [phone] [place], [place] [address]Ypkiohpwex81-80-4312atuflhaudxqz polysaccharide vaccine, 23 Blanca Linton MD Work Phone: [phone]-[address] [place], [place] [address]Enpjpebyie71-45-3517qxtnfiyjm, high dose seasonal, preservative-Marleny Linton MD Work Phone: [phone] [place], [place] [address]Aylcjdhove88-41-0789Jgmgnfkjy, injectable, Madin Abeba Canine Kidney, preservative free, quadrivalentKvng Linton MD Work Phone: [phone] ConceptsSt. [facility] Medical CenterKhcoyyvmeq60-26-3052uxbeeoev influenza, intradermal, preservative Marleny Linton MD Work Phone: [phone] [place], [place] [address]Yjgjwxszni54-55-6272bssurtyet, injectable, quadrivalent, contains preservativeKvng Linton MD Work Phone: [phone] [place], [place] [address]Xvxwlfypgq42-65-1630aedsbmqkblyy polysaccharide vaccine, 23 Blanca Linton MD Work Phone: [phone] [place], [place] [address]Dazngnquoy33-94-7501ivfrxow toxoid, reduced diphtheria toxoid, and acellular pertussis vaccine, adsorbedKvng Linton MD Work Phone: [phone] [place] [address] Payers DatePayer CategoryPayerPolicy [id number] 2024Medicare (Managed Care)[employer] Member Subscriber Plan / Payer (Effective 2023-Present) Name: Berenice Silva Relation to Subscriber: Self Name: Berenice Silva Payer ID: Not on file Group ID: [id number] Type: Not on file Address: [facility] [id number] [place] [id number] [id number] 2013Medicare 1.2.840.416326.1.13.693.2.7.3.608784.315 [id number] 1960 [id number] 2.16.840.1.873946.3.579.2.593 33-07-4703Vzjucij0358999 2.16840.1.462480.3.579.[id number] 2.16840.1.506837.3.579.2.97544-53-1909Krsmofx8195609 2.16840.1.426877.3.579.2.25822-04-2537Qxdjxot8953887 2.16840.1.452332.3.579.2.66138-57-3567Nwqisob3137351 2.16840.1.020537.3.579.2.63914-61-1035Tcicfqz4461394 2.16840.1.264500.3.579.2.45904-06-8830Isbdfuh6823053 2.16840.1.940371.3.579.2.15385-82-6595Qoypyxx8228057 2.16.840.1.514828.3.579.2.17654-13-7930Nijrreh2098807 2.16840.1.037447.3.579.2.47106-61-3433Ylfkfxv3298770 2.16840.1.459319.3.579.2.52525-48-1953Zpxmvxk9829146 2.16840.1.117102.3.579.2.82213-89-5938Lmeqzmk1643745 2.16.840.1.419960.3.579.2.98793-60-5619Waymzby3989890 2.16.840.1.944882.3.579.2.17768-60-1420Zaxypmj1605363 2.16.840.1.167938.3.579.2.51941-22-6321Tboabyv5380871 2.16.840.1.652668.3.579.2.45688-27-0719Prdbrxk2510203 2.16.840.1.511982.3.579.2.32728-70-8353Ztxevzw5348993 2.16.840.1.662024.3.579.2.66842-12-7107Ylehbdl2385875 2.16840.1.070632.3.579.2.68441-04-2459Zpyrnfj9093071 2.16840.1.492193.3.579.2.83435-01-2295Tpgketn4704564 2.16.840.1.734455.3.57[id number] 2.16.840.1.517622.3.579.2.11525-89-1991Aeezsfz6628201 2.16.840.1.685101.3.579.2.69480-16-1539Napherq3500802 2.16.840.1.514645.3.579.[id number] 2.16.840.1.916765.3.579.2.80511-56-9810Srmmsjs90883225 2.16.840.1.300878.3.579.2.42705-37-3868Vtgrgjm21083119 2.0.1.565913.3.579.2.098567-86-9380Vejavqd38707095 2..1.314115.3.579.2.461558-82-4333Egnlcyg84319334 2.0.1.003938.3.579.2.264600-20-0434Cmdjode85188009 2.0.1.639017.3.579.2.552676-37-4858Bfabsug04754098 2..1.953262.3.579.2.885133-30-5555Wqvsikz13176053 2..1.756643.3.579.2.513067-21-3527Diqopwq00747648 2..1.601938.3.579.2.890701-86-1851Dfggvgy73681977 2..1.919937.3.579.2.286992-93-7483Reievew63266724 2..1.622670.3.579.2.612384-60-2690Ndhozgf13684308 2..1.556479.3.579.2.660419-02-0600Nenuqcn23480560 2..1.940957.3.579.2.916233-08-4145Ecddnkd89464197 2..1.223567.3.579.2.669075-59-5991Gtbkksw68226919 2.0.1.432733.3.579.2.543338-48-5307Cbertdz72282041 2.0.1.687689.3.579.2.933459-14-0929Ulbzcjz68723903 2.16.840.1.580817.3.579.2.418589-39-7337Srmbten55670110 2.16.840.1.522144.3.579.2.153851-21-3589Wdayoxw11120535 2.16.840.1.672341.3.579.2.749788-04-3900Iomvpom4382321 2.16.840.1.745586.3.579.2.997345-65-9794Fzprniu1483122 2.16.840.1.386331.3.579.2.286793-96-5471Pmtjnei2776419 2.16.840.1.082835.3.579.2.1259 Social History DateTypeDetailFacilityStart: 03-12-2023 End: 59-55-6864Difzmlq smoking status NHISEx-smokerNOMS HealthcareStart: 07-30-1965 End: 27-89-5523Qcgkrxc of tobacco useCurrent smokerNOMS HealthcareStart: 07-30-1965 End: 69-48-7799Ozovmqx of tobacco useCigarette SmokerNOMS HealthcareStart: 03-12-2023 End: 76-41-4743Ncxsqfz use and exposureSmokeless tobacco non-userNOAZ Healthcare Start: 08-30-2023 End: 00-68-6040Evaeqto intakeNot AskedNOAZ HealthcareStart: 03-12-2023 End: 97-91-9826Swplfcl of Social functionNOMS Healthcare Work Phone: Start: 03-12-2023 End: 63-50-4128Vlowjbw use panelNOAZ Healthcare Work Phone: Start: 49-87-7757Nlhnzni Commentcaffeine intake: more than 4 cups per day.[facility] CenterStart: 57-64-7626Tci Assigned At BirthNot on fileNOAZ HealthcareStart: 02-06-2024 End: 48-77-1642Olbfdsuzm beverage intakeLifetime non-drinker (finding)[facility] HealthcareStart: 75-93-8181Ygj often do you need to have someone help you when you read instructions, pamphlets, or other written material from your doctor or pharmacy [SILS]NeverSt. Louis VA Medical Center Work Phone: Are you now , , , , never or living with a partner?MarriedNOAZ HealthcareHow often to you have a drink containing alcohol?NeverGARFIELD MEM[facility] HealthcareHow hard is it for you to [...] before (I/we) got money to buy more.Never trueGARFIELD MEMORIAL HOSPITAL HealthcareIn the past 12 months, was there a time when you were not able to pay the mortgage or rent on time?NoN[facility] Functional Status JoxyAgfvijpupqFwrwdcTsgtysde52-63-0995Ylzcies Health Questionnaire 2 item (PHQ- 2) [Reported][facility] CenterVgclqisvym81-64-2246Wrhouel Health Questionnaire 2 item (PHQ- 2) [Reported][facility] CenterIwrgzcclsf69-73-8991Vxuqh score [AUDIT-C]0 03/05/2024 8:53 AM EDT SaturdayElvi LPNNAscension [facility] Clinical Notes 02-26-2022 to 03-16-2025 Note Date & SuugFribRgohuxls37-21-1788 History of Present illness Narrative* Katlin Romero [...] Next Visit: As needed documented in this encounterSt. Louis VA Medical CenterJibzmkkeki22-48-1639 History of Present illness Narrative* Katlin Romero [...] 14 days for s/r documented in this encounterSt. Louis VA Medical CenterQlcpsrnjaz38-96-4283 History of Present illness Narrative* YUE Mathew [...] Do you have a medical power of trademark attorney?: No Current Outpatient Medications on File [...] a living will and durable power of trademark attorney for healthcare. We discussed telling yoder [...] Nicky Riddle MSALEXANDER, KRISTOFERC documented in this encounterSt. Louis VA Medical CenterDtngmtcrly82-24-0231 History of Present illness Narrative* YUE Dudley [...] Next Visit: 03/02/2025, excision documented in this encounterSt. Louis VA Medical CenterRfzpphnjfv65-79-1399 History of Present illness Narrative* Tsering Starr, [...] No follow-ups on file. documented in this encounterSt. Louis VA Medical CenterYgqaaxeqaw93-47-9385 Telephone encounter Note* Telephone Encounter - YUE Mathew - 08/31/2024 10:01 AM EST Acknowledged. [facility] CenterEhqobiggxd37-75-1243 Miscellaneous Notes* Telephone Encounter - YUE Mathew - 08/31/2024 10:01 AM EST Acknowledged. * Telephone Encounter - NYA RAHMAN - 08/25/2024 4:45 PM EST Patient was contacted by ALEXANDER Castro for a sleep study and at this time she wants to cancel the study, for she doesn't feel it is necessary. documented in this encounterSt. Louis VA Medical CenterCishcawtie51-81-2505 Telephone encounter Note* Telephone Encounter - YUE Mathew - 08/31/2024 10:00 AM EST Acknowledged. [facility] Rstzwaechg97-06-3520 Miscellaneous Notes* Telephone Encounter - YUE Mathew - 08/31/2024 10:00 AM EST Acknowledged. * Telephone Encounter - Heydi Syed MA - 08/25/2024 4:36 PM EST Hi, this is Be patient rn primary care with [facility]. 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 [phone] 2, thank you. documented in this [facility]02-04-2025 Telephone encounter Note* Telephone Encounter - NYA RAHMAN - 08/25/2024 4:45 PM EST Patient was contacted by ALEXANDER Castro for a sleep study and at this time she wants to cancel the study, for she doesn't feel it is necessary. [facility] Mjrwwgupfj38-17-7773 Telephone encounter Note* Telephone Encounter - Heydi Syed MA - 08/25/2024 4:36 PM EST Hi, this is Be patient rn primary care with [facility]. Matthew, I was just calling [...] call me at my cell phone number. [phone] 2, thank you. [facility] Ivbhtajrsx88-48-8253 History of Present illness Narrative* YUE Mathew [...] (around 08/27/2024) for Recheck. documented in this encounterSt. Louis VA Medical CenterMpzqwqiokc79-29-1290 Telephone encounter Note* Telephone Encounter - Kvng Linton MD - 05/08/2024 11:30 [address] EDT [address] [facility] CenterGeljgvnsyk39-23-3138 Miscellaneous Notes* Telephone Encounter - Kvng Linton MD - 05/08/2024 11:30 AM EDT Sent. documented in this encounterSt. Louis VA Medical CenterMnnakhdldf92-31-4226 History of Present illness Narrative* Kvng Linton [...] 08/04/2024) for Routine F/U. documented in this encounterSt. Louis VA Medical CenterQmlhywxzof97-69-6726 Telephone encounter Note* Telephone Encounter - Kvng [...] Benedryl OTC 1 hour prior toeach pill. [facility] CenterGlxwyjtnto26-15-0648 Miscellaneous Notes* Telephone Encounter - Kvng Linton [...] hour prior toeach pill. documented in this encounterSt. Louis VA Medical CenterTntgfkhdcn69-38-5354 History of Present illness Narrative* Kvng Linton MD - 09/04/2023 11:30 AM EST Subjective Patient ID: Berenice Silva is a 77 y.o. female who presents for Follow-up (H stay admitted 08/24/23dx: TIA discharged home 08/25/23 advised to take ASA 325mg). Flowsheet Row Telephone from 08/30/2023 in [facility] with Kvng Linton MD Discharge Information ED or Hospital Discharge? Hospital Patient has been contacted within two business days of discharge No Have two attempts been made to contact the patient within two business days of being discharged? No Discharge Date 08/25/23 Discharge Hospital [facility] Discharged To: Home Setting Engagement [...] THE MORNING 90 tablet 0 [DISCONTINUED] HYDROcodone-acetaminophen ([place]) 5-325 MG tablet Take 1 tablet by [...] 09/25/2023) for Test/Lab Review. documented in this encounterSt. Louis VA Medical CenterWrwqigoyln10-99-6293 NotePROCEDURE: XR FOOT RT MIN 3 VIEWS [...] Electronically authenticated by: HALEIGH FINE Date: 2022-10-22 16:24[facility]03-21-2023 NotePROCEDURE: XR FOOT RT MIN 3 VIEWS [...] Electronically authenticated by: AYDEN SERRA Date: 2022-10-09 14:38[facility]02-28-2023 NotePROCEDURE: XR FOOT RT MIN 3 VIEWS [...] Electronically authenticated by: AYDEN SERRA Date: 2022-09-18 17:34[facility]10-20-2022 NotePROCEDURE: XR FOOT RT 2V COMPARISON: 02/23/2022 HISTORY: Pain FINDINGS: BONES:Stable medial effusion with plates and screws. Stable subtalar fusion. Changing configuration of the lateral sesamoid of the first metatarsal SOFT TISSUES:Negative. No visible soft tissue swelling. EFFUSION:None visible. OTHER: Negative. IMPRESSION: Intraprocedural fluoroscopic images Electronically authenticated by: AYDEN SERRA Date: 2022-05-10 17:33[facility]10-20-2022 NotePROCEDURE: XR FOOT RT MIN 3 VIEWS [...] Electronically authenticated by: AYDEN SERRA Date: 2022-05-10 17:32[facility]08-08-2022 NotePROCEDURE: XR FOOT RT MIN 3 VIEWS [...] authenticated by: AYDEN SERRA Date: 2022-02-26 07:57[facility]* Diagnosis TIA (transient ischemic attack)- Primary [...] Other general symptoms documented in this encounter [facility] HealthcareEvaluation note* Diagnosis Medicare annual wellness [...] sided sciatica Sciatica documented in this encounter [facility] HealthcareEvaluation note* Diagnosis Epidermal inclusion cyst- Primary Sebaceous cyst Pain Generalized pain documented in this encounter [facility] HealthcareEvaluation note* Diagnosis Encounter for removal of sutures documented in this encounter [facility] HealthcareReason for referral (narrative)* Consultation (Routine) - Pending ReviewSpecialtyDiagnoses / ProceduresReferred By ContactReferred To Contact Urology Diagnoses Urinary frequency Procedures MD OFFICE/OUTPATIENT [facility] 60 MINUTES Kvng Linton MD [address] [place] [address] Vee Hatfield MD [address] [place] [address] Referral IDStatusReasonStart DateExpiration DateVisits RequestedVisits [id number] Review Specialty Services Required * Consultation (Routine) - Pending ReviewSpecialtyDiagnoses / ProceduresReferred By ContactReferred To ContactNeurology Diagnoses TIA (transient ischemic attack) Procedures MD OFFICE/OUTPATIENT [facility] 60 MINUTES Kvng Linton MD [address] [place] [address] Damion Longo MD [address] [facility] [address] [place] [address] Referral IDStatusReasonStart DateExpiration DateVisits RequestedVisits [id number] Review Specialty Services Required * Imaging (Routine) - Pending ReviewSpecialtyDiagnoses / ProceduresReferred By ContactReferred To ContactCardiology Diagnoses TIA (transient ischemic attack) Procedures Echocardiogram 2D complete Kvng Linton MD [address] [place] [address] Referral IDStatusReasonStart DateExpiration DateVisits RequestedVisits [id number] Review Perform Procedure [facility] Summary Purpose [...] section and content) DATE CREATED AUTHOR 12/28/2022 [facility] DATE CREATED AUTHOR AUTHOR'S ORGANIZ ATION 09/07/2023 [facility] DATE CREATED AUTHOR AUTHOR'S ORGANIZ ATION 11/01/2023 [facility] DATE CREATED AUTHOR AUTHOR'S ORGANIZ ATION 01/22/2024 [facility] DATE CREATED AUTHOR AUTHOR'S ORGANIZ ATION 02/27/2024 [facility] DATE CREATED AUTHOR AUTHOR'S ORGANIZ ATION 03/15/2024 [facility] DATE CREATED AUTHOR AUTHOR'S ORGANIZ ATION 08/07/2024 [facility] DATE CREATED AUTHOR AUTHOR'S ORGANIZ ATION 03/18/2025 [facility] EPIC Care Teams (unrecognized sec tion and content) Team MemberRelationshipSpecialtyStart DateEnd Date Kvng Linton MD [address] [facility] [[email or web address] [address] [place] [address] PCP - GeneralInternal Medicine11/27/22 Kvng Linton MD [address] [facility] [[email or web address] [address] [place] [address] PCP - Rashid GALVEZ07/22/23Team MemberRelationshipSpecialtyStart DateEnd Date Kvng Linton MD [address] [facility] [[email or web address] [address] [place] [address] PCP - GeneralInternal Medicine11/27/22 Kvng Linton MD [address] [place] [place] [address] PCP - Rashid GALVEZ07/22/23Team MemberRelationshipSpecialtyStart DateEnd Date Kvng Linton MD [address] [place] [address] PCP - GeneralInternal Medicine11/27/22 Kvng Linton MD [address] [place] [address] PCP - Cobalt MA07/22/23Saturday, Elvi, BALANCE BRIDGE INSPECTOR [address] [place] [address] Licensed Practical NurseFamily Medicine02/26/24Team MemberRelationshipSpecialty Start DateEnd Kvng Linton MD [address] [place] [address] PCP - GeneralInternal Medicine11/27/22 Kvng Linton MD [address] [place] [address] PCP - Rashid MA07/22/23Saturday, NATANAEL BolesN [address] [place] [address] Licensed Practical NurseFamily Medicine02/26/24Team MemberRelationshipSpecialty Start DateEnd Kvng Linton MD [address] [place] [address] PCP - GeneralInternal Medicine11/27/22 Kvng Linton MD [address] [place] [address] PCP - Rashid GALVEZ07/22/23Saturday, Elvi, BALANCE BRIDGE INSPECTOR [address] [place] [address] Licensed Practical NurseFamily Medicine02/26/24am MemberRelationshipSpecialty Start DateEnd Date Kvng Linton MD [address] [place] [address] PCP - GeneralInternal Medicine11/27/22 Kvng Linton MD [address] [place] [address] PCP - Rashid GALVEZ07/22/23Saturday, NATANAEL BolesN [address] [place] [address] Licensed Practical NurseFamily Medicine02/26/24Team MemberRelationshipSpecialty Start DateEnd Date Kvng Linton MD [address] [place] [address] PCP - GeneralInternal Medicine11/27/22Saturday, NATANAEL BolesN [address] [place] [address] Licensed Practical NurseFamily Medicine/02/12 Heydi Parker, RN Licensed Practical NurseFamily Medicine08/28/24Te MemberRelationshipSpecialty Start DateEnd Date Kvng Linton MD [address] [place] [address] PCP - GeneralInternal Medicine11/27/22 Heydi Parker, RN Licensed Practical NurseFamily Medicine08/28/24Team MemberRelationshipSpecialty Start DateEnd Date Kvng Linton MD [address] [place] [address] PCP - GeneralInternal Medicine11/27/22 Kvng Linton MD [address] [place] [address] PCP - Rashid [place]07/22/23 Reina Palma, MELISSA 10/06/24Team MemberRelationshipSpecialtyStart DateEnd Date Kvng Linton MD [address] [place] [address] PCP - GeneralInternal Medicine11/27/22 Kvng Linton MD [address] [place] [address] PCP - Cobalt WI07/22/23 Reina Palma LPN 10/06/24Team MemberRelationshipSpecialtyStart DateEnd Date Kvng Linton MD [address] [place] [address] PCP - GeneralInternal Medicine11/27/22 Kvng Linton MD [address] [place] [address] PCP - Cobalt [place]07/22/23 Reina Palma BALANCE BRIDGE INSPECTOR 10/06/24Team MemberRelationshipSpecialtyStart DateEnd Date Kvng Linton MD [address] [place] [address] PCP - GeneralInternal Medicine11/27/22 Kvng Linton MD [address] [place] [address] PCP - Rashid WI07/22/23 Reina Palma BALANCE BRIDGE INSPECTOR 10/06/24Team MemberRelationshipSpecialtyStart DateEnd Date Kvng Linton MD [address] [place] [address] PCP - GeneralInternal Medicine11/27/22 Kvng Linton MD [address] [place] [address] PCP - Cobalt WI07/22/23 Reina Palma LPN [address] [place] [address] 10/06/24Team MemberRelationshipSpecialtyStart DateEnd Date Kvng Linton MD [address] [place] [address] PCP - GeneralInternal Medicine11/27/22 Kvng Linton MD [address] [place] [address] PCP - Cobalt WI07/22/23 Reina Palma LPN [address] [place] [address] 10/06/24Team MemberRelationshipSpecialtyStart DateEnd Date Kvng Linton MD [address] [place] [address] PCP - GeneralInternal Medicine11/27/22 Kvng Linton MD [address] [place] [address] PCP - Cobalt WI07/22/23 Reina Palma LPN [address] [place] [address] 10/06/24Team MemberRelationshipSpecialtyStart DateEnd Date Kvng Linton MD [address] [place] [address] PCP - GeneralInternal Medicine11/27/22 Kvng Linton MD [address] [place] [address] PCP - Cobalt WI07/22/23 Reina Palma LPN [address] [place] [address] 10/06/24Team MemberRelationshipSpecialtyStart DateEnd Date Kvng Linton MD [address] [place] [address] PCP - GeneralInternal Medicine11/27/22 Kvng Linton MD [address] [place] [address] PCP - Cobalt WI07/22/23 Reina Palma LPN [address] [place] [address] 10/06/24Team MemberRelationshipSpecialtyStart DateEnd Date Kvng Linton MD [address] [place] [address] PCP - GeneralInternal Medicine11/27/22 Kvng Linton MD [address] [place] [address] PCP - Cobalt WI07/22/23 Reina Palma LPN [address] [place] [address] 10/06/24Team MemberRelationshipSpecialtyStart DateEnd Date Kvng Linton MD [address] [place] [address] PCP - GeneralInternal Medicine11/27/22 Kvng Linton MD [address] [place] [address] PCP - Rashid GALVEZ07/22/23Saturday, MELISSA Boles [address] [place] [address] Licensed Practical NurseFamily Medicine Heydi Parker, RN [address] [place] [address] Licensed Practical NurseFamily Medicine Reina Palma LPN [address] [facility] [[email or web address] [address] [place] [address] 10/06/24 Reason for Visit (unrecogniz ed section and content) ReasonCommentsFollow-upTBH stay admitted 08/24/23 dx: TIA discharged home 08/25/23 advised to take ASA 325mgReasonCommentsFollow-upLump on abd-see telephone encounterMed RefillTramadol--[facility] fremontReasonOnset DateCommentsMed Refill 4ReasonOnset DateCommentsMed Ujakbi724ReasonCommentsMed Refill RopiniroleReasonOnset DateCommentsMed Rsgcuz5409/18/2024ReasonCommentsSuspicious Skin LesionReasonCommentsMedicare Annual Wellness Visit SubsequentMed Refill [...] BE BASED ON THE PRIMARY CLINICAL RECORDS. [facility] provides no warranty or guarantee of the accuracy or completeness of information in this document.
--- OUTSIDE RECORDS SUMMARY | 2025-06-25 18:47 | XMS_ITS | Encounter Summary ---
Author Organization [facility] Healthcare Address [address] [place] [address] Care Team Providers Care Technical Account Manager Name Role Phone Kvng Linton MD Primary Care Provider [phone] Kvng Linton MD Unavailable [phone] Reina Palma LPN Unavailable Encounter Details DateTypeDepartmentCare Team (Latest Contact Info)Bmwuypzxhrs01/02/2025Patient Outreach [facility] [address] [place] [id number] Reina Palma LPN [address] [facility] [address] [place] [address] Social History Tobacco UseTypesPacks/DayYears UsedDateSmoking Tobacco: FormerCigarettes0.527 [...] Gatherings with Friends and FamilyNot on file03/05/2024ttends [employer] ServicesNot on file03/05/2024ctive Member of Clubs or OrganizationsNot on file03/05/2024ttends Club or Organization MeetingsNot on file03/05/2024re you , , , , never , or living with a partner?Euyqfyv5103/05/2024UDIT-C AnswerDate RecordedQ1: How often do you have [...] and heating?Very hard03/05/2024HQ-2 AnswerDate RecordedPatient Health Questionnaire-2 Vgvqm58808/16/2024[facility] [place] [facility] Occup[facility] - Occupational Stress QuestionnaireAnswerDate RecordedDo you feel stress - tense, restless, nervous, or anxious, or unable to sleep at night because yourmind is troubled all the time - these days?Only a nsaaoj8203/05/2024Exercise Vital SignAnswerDate RecordedOn average, how many days per week do you engage in moderate to strenuous exercise (like a brisk walk)? Patient elrfbjuc45/10/2024On average, how many minutes do you engage in exercise at this level?Patient dwgkuwnm56/10/2024Hunger Vital SignAnswerDate Recorded Within the past 12 [...] homeless or living in a usp (including now)?No 03/05/2024CommentsUnknownSex and Gender InformationValueDate RecordedSex Assigned at BirthNot on fileLegal RmmTxilzy15/15/2023 7:12 PM EDTGender Identity Not on fileSexual OrientationNot on filedocumented as of this encounter Progress Notes * Reina Palma LPN - 06/22/2025 11:39 AM EST Returned call to pt. No answer, VM left. <June 23, 2025, 14:42 - Reina Palma LPN> Called pt again. Pt states she was calling to ask if she already had CT of heart scheduled. she shares she was not called to schedule and was worried she missed something. pt states she found out that it is to be scheduled at [facility] and is currently waiting on a call back from them to schedule this. Pt hopes that it is scheduled soon because she would like to stop having to sleep in chair. I let pt know if she has any troubles getting scheduled to call back. Pt denies any other needs or concerns at this time. documented in this encounter Plan of Treatment Not on file documented as of this encounter Visit Diagnoses Diagnosis Essential (primary) hypertension- Primary Unspecified essential hypertension Hyperlipidemia, unspecified hyperlipidemia type documented in this encounter Additional Health Concerns AssessmentNoted TimePHQ-9 Depression Total Score: 9:00 AM EDT documented as of this encounter Care Teams Team MemberRelationshipSpecialtyStart DateEnd Date Kvng Linton MD [address] [facility] [address] [place] [address] PCP - GeneralInternal Medicine11/27/22 Kvng Linton MD [address] [facility] [address] [place] [address] PCP - Rashid GALVEZ07/22/23 Reina Palma LPN [address] [facility] [address] [place] [address] 10/06/24documented as of this encounter
--- OUTSIDE RECORDS SUMMARY | 2025-06-25 18:47 | XMS_ITS | Encounter Summary ---
Author Organization [facility] Address [address] [place] [address] Care Team Providers Care Director Government Name Role Phone Kvng Linton MD Primary Care Provider [phone] Kvng Linton MD Unavailable [phone] Reina Palma LPN Unavailable Encounter Details DateTypeDepartmentCare Team (Latest Contact Info)Frxnanmperv06/21/2025Travel Social History Tobacco UseTypesPacks/DayYears UsedDateSmoking Tobacco: FormerCigarettes0.527 [...] Gatherings with Friends and FamilyNot on file03/05/2024ttends Mu-Ism ServicesNot on file03/05/2024ctive Member of Clubs or OrganizationsNot on file03/05/2024ttends Club or Organization MeetingsNot on file03/05/2024re you , , , , never , or living with a partner?Ungjrbs9403/05/2024UDIT-C AnswerDate RecordedQ1: How often do you have [...] and heating?Very hard03/05/2024HQ-2 AnswerDate RecordedPatient Health Questionnaire-2 Ajnld685[facility] [place] [facility] Occup[facility] - Occupational Stress QuestionnaireAnswerDate RecordedDo you feel stress - tense, restless, nervous, or anxious, or unable to sleep at night because yourmind is troubled all the time - these days?Only a nofpim8103/05/2024Exercise Vital SignAnswerDate RecordedOn average, how many days per week do you engage in moderate to strenuous exercise (like a brisk walk)? Patient airbbrxd43/10/2024On average, how many minutes do you engage in exercise at this level?Patient fzhwnicf11/10/2024Hunger Vital SignAnswerDate Recorded Within the past 12 [...] homeless or living in a intermediate (including now)?No 03/05/2024CommentsUnknownSex and Gender InformationValueDate RecordedSex Assigned at BirthNot on fileLegal BxeRqvbgq52/15/2023 7:12 PM EDTGender Identity Not on fileSexual OrientationNot on filedocumented as of this encounter Plan of Treatment Not on file documented as of this encounter Visit Diagnoses Not on filedocumented in this encounter Additional Health Concerns AssessmentNoted TimePHQ-9 Depression Total Score: 9:00 AM EDT documented as of this encounter Care Teams Team MemberRelationshipSpecialtyStart DateEnd Date Kvng Linton MD [address] [place] [address] PCP - GeneralInternal Medicine11/27/22 Kvng Linton MD [address] [place] [address] PCP - Rashid GALVEZ07/22/23 Reina Palma LPN [address] [place] [address] 10/06/24documented as of this encounter
--- OUTSIDE RECORDS SUMMARY | 2025-06-25 18:47 | XMS_ITS | Encounter Summary ---
Author Organization [facility] Address [address] [place] [address] Care Team Providers Care Catering Administrative Assistant Name Role Phone Kvng Linton MD Primary Care Provider [phone] Kvng Linton MD Unavailable [phone] Reina Palma LPN Unavailable Encounter Details DateTypeDepartmentCare Team (Latest Contact Info)Biszcwalnsv82/26/2025Travel Social History Tobacco UseTypesPacks/DayYears UsedDateSmoking Tobacco: FormerCigarettes0.527 [...] Gatherings with Friends and FamilyNot on file03/05/2024ttends Temple ServicesNot on file03/05/2024ctive Member of Clubs or OrganizationsNot on file03/05/2024ttends Club or Organization MeetingsNot on file03/05/2024re you , , , , never , or living with a partner?Ijinlfh4503/05/2024UDIT-C AnswerDate RecordedQ1: How often do you have [...] and heating?Very hard03/05/2024HQ-2 AnswerDate RecordedPatient Health Questionnaire-2 Hbfqe53908/16/2024Fin[facility] [place] of Occupational Health - Occupational Stress QuestionnaireAnswerDate RecordedDo you feel stress - tense, restless, nervous, or anxious, or unable to sleep at night because yourmind is troubled all the time - these days?Only a bnssxp2403/05/2024Exercise Vital SignAnswerDate RecordedOn average, how many days per week do you engage in moderate to strenuous exercise (like a brisk walk)? Patient ipibgrnp88/10/2024On average, how many minutes do you engage in exercise at this level?Patient yqfotrrh51/10/2024Hunger Vital SignAnswerDate Recorded Within the past 12 [...] InformationValueDate RecordedSex Assigned at BirthNot on fileLegal PwoMhqqcm63/15/2023 7:12 PM EDTGender Identity Not on fileSexual OrientationNot on filedocumented as of this encounter Functional Status * Over the past 2 weeks, how often have you been bothered by any of the following problems?QuestionAnswerDate of AssessmentAuthorLittle interest or pleasure in doing thingsNot at all06/16/2025 6:55 AM Heydi Tafoya MA Feeling down, depressed, or hopelessNot at all06/16/2025 6:55 AM Heydi Tafoya MAPatient Health Questionnaire-2 Vvbbp65708/16/2024 6:55 AM Heydi Tafoya MA documented as of this encounter Plan of Treatment Not on file documented as of this encounter Visit Diagnoses Not on filedocumented in this encounter Additional Health Concerns AssessmentNoted TimePHQ-9 Depression Total Score: 9:00 AM EDT documented as of this encounter Care Teams Team MemberRelationshipSpecialtyStart DateEnd Date Kvng Linton MD [address] [place] [address] PCP - GeneralInternal Medicine11/27/22 Kvng Linton MD [address] [place] [address] PCP - Rashid GALVEZ07/22/23 Reina Palma, MELISSA [address] [facility] [address] [place] [address] 10/06/24documented as of this encounter
--- OUTSIDE RECORDS SUMMARY | 2025-06-25 18:47 | XMS_ITS | Encounter Summary ---
Author Organization [facility] Address [address] [place] [address] Care Team Providers Care Winding Lathe Operator Name Role Phone Kvng Linton MD Primary Care Provider [phone] Kvng Linton MD Unavailable [phone] Reina Palma LPN Unavailable Encounter Details DateTypeDepartmentCare Team (Latest Contact Info)Ohyfojoynzr90/01/2025bstract [facility] [place] [facility] [address] [place] [address] Kvng Linton MD [address] [place], [place] [address] Social History Tobacco UseTypesPacks/DayYears UsedDateSmoking Tobacco: FormerCigarettes0.527 [...] Gatherings with Friends and FamilyNot on file03/05/2024ttends Zoroastrianism ServicesNot on file03/05/2024ctive Member of Clubs or OrganizationsNot on file03/05/2024ttends Club or Organization MeetingsNot on file03/05/2024re you , , , , never , or living with a partner?Spaejiy9403/05/2024UDIT-C AnswerDate RecordedQ1: How often do you have [...] and heating?Very hard03/05/2024HQ-2 AnswerDate RecordedPatient Health Questionnaire-2 Jrldo58408/16/2024[facility] [place] of Occupational Health - Occupational Stress QuestionnaireAnswerDate RecordedDo you feel stress - tense, restless, nervous, or anxious, or unable to sleep at night because yourmind is troubled all the time - these days?Only a hpeuem6103/05/2024Exercise Vital SignAnswerDate RecordedOn average, how many days per week do you engage in moderate to strenuous exercise (like a brisk walk)? Patient orqddbyc30/10/2024On average, how many minutes do you engage in exercise at this level?Patient vzuawsnl22/10/2024Hunger Vital SignAnswerDate Recorded Within the past 12 [...] homeless or living in a long-term (including now)?No 03/05/2024CommentsUnknownSex and Gender InformationValueDate RecordedSex Assigned at BirthNot on fileLegal QgcYnaqmg43/15/2023 7:12 PM EDTGender Identity Not on fileSexual OrientationNot on filedocumented as of this encounter Plan of Treatment Not on file documented as of this encounter Visit Diagnoses Not on filedocumented in this encounter Additional Health Concerns AssessmentNoted TimePHQ-9 Depression Total Score: 9:00 AM EDT documented as of this encounter Care Teams Team MemberRelationshipSpecialtyStart DateEnd Date Kvng Linton MD [address] [facility] [address] [place] [address] PCP - GeneralInternal Medicine11/27/22 Kvng Linton MD [address] [place] [address] PCP - Rashid GALVEZ07/22/23 Reina Palma LPN [address] [place] [address] 10/06/24documented as of this encounter
--- OUTSIDE RECORDS SUMMARY | 2025-06-25 18:47 | XMS_ITS | Clinical Summary ---
Author Organization [facility] Address [address] [place] [address] Care Team Providers Care [place] Machine Tender Name Role Phone Kvng Linton MD Primary Care Provider [phone] Kvng Linton MD Unavailable [phone] Reina Palma LPN Unavailable Allergies Active AllergyReactionsCriticalityNoted DateCommentsAmoxicillin-Pot Clavulanate Nausea Only03/12/2023Sulfa Ohsqajqhdbu29/22/2023 Other Reaction(s): itching Medications MedicationSigDispense QuantityRefillsLast FilledStart DateEnd DateStatus Multiple Vitamin (Multi-Vitamin) tablet Take 1 tablet by mouth in the morning.Active cholecalciferol (Vitamin D-3) 50 MCG (1999 UT) [...] Daily Take with food 90 tablet 5Active gabapentin (Neurontin) 600 MG tablet Indications:NeuralgiaTABLET 1/2 [...] tablet 5Active traMADol (Ultram) 50 MG tablet Indications:PolyarthritisTake 1 tablet (50 mg) by mouth every 6 (six) hours if needed for severe pain 40 tablet 5Active atorvastatin (Lipitor) 10 MG tablet Indications:DyslipidemiaTake 1 tablet (10 mg) by mouth in the morning. 100 tablet Discontinued(Other) cloNIDine (Catapres) 0.1 MG tablet Indications:Essential (primary) hypertensionTAKE 1 TABLET BY MOUTH EVERY 8 HOURS IF NEEDED FOR HIGH BLOOD PRESSURE FOR 170 OR GREATER 30 tablet Discontinued(Other) traMADol (Ultram) 50 MG tablet Indications:Primary osteoarthritis, unspecified siteTake 1 tablet (50 mg) by mouth every 6 (six) hours if needed for severe pain for up to 10 days 40 tablet Discontinued traMADol (Ultram) 50 MG tablet Indications:Primary osteoarthritis, unspecified siteTake 1 tablet (50 mg) by mouth every 6 (six) hours if needed for severe pain 20 tablet Discontinued(Reorder) ciprofloxacin (Cipro) 250 MG tablet Indications:Acute cystitis with hematuriaTake 1 tablet (250 mg) by mouth in the morning and 1 tablet (250 mg) before bedtime. Do all this for 3 days. 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 syndrome of right ojwmitbx25/22/2023Inflammatory and toxic rbwhooouxb57/22/2023Laryngopharyngeal vmibyn4603/12/2023Left sided sciatica 03/12/2023Lumbago with sciatica, left side03/12/2023Lumbar degenerative disc hxaewdo0403/12/2023Lumbar paraspinal muscle spasm03/12/2023Muscular atrophy 03/12/2023Neural foraminal stenosis of lumbar spine03/12/2023Neurogenic pain 03/12/2023Osteoarthritis of spine with radiculopathy, lumbar jxyckh9803/12/2023 Zfcrpavxqnmrk41/22/2023Osteopenia of multiple sites03/12/2023Other chronic pain 03/12/2023Other hammer toe(s) (acquired), right foot03/12/2023haryngoesophageal zahzghlsa79/22/2023lenohumeral cgpldlelr60/22/2023rimary localized osteoarthrosis of ankle and foot03/12/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 03/12/2023rimary osteoarthritis, right qfoeisuq68/22/2023Rheumatoid factor uxlcpljh12/22/2023Restless legs syndrome (RLS)03/12/2023Essential (primary) xzvwmnuphczt20/19/2023Lumbar gjaabmij17/16/2022isorder of tvizkg0511/30/2020 Lumbar ndsjuebitcn56/12/6334Jpitzonaqtpn39/01/2010 Resolved Problems ProblemNoted DateDiagnosed DateResolved DateOther acute osteomyelitis, right ankle and foot/tinic gwbwvineh67/harcot's awiraxayvtl98Non-pressure chronic ulcer of other part of right foot with fat layer /ost-traumatic osteoarthritis, right gwocryss04/11/2024Piriformis syndrome of right side10/31/2021 02/23/2025Primary localized aqdbftrqryzfik68 Encounters DateTypeDepartmentCare ZizqWgzfzruyvmb58/02/2025Patient Outreach [facility][NOTE 3] [address] [place] [phone] Reina Palma LPN 06/21/2025bstract [facility] [address] [facility] [address] [place] [address] Kvng Linton MD 06/16/2025 11:30 AM ESTOffice Visit [facility] [address] [facility] [address] [place] [address] Nicky Riddle PA Essential (primary) hypertension (Primary Dx); Other chronic pain; Polyarthritis; Neurogenic pain; Chronic right shoulder pain; Neck pain; Dyslipidemia; Abnormal urine odor; At risk for coronary artery disease; Acute cystitis with yubhwwtws94/26/6194Oxbdlv33/21/8396Ojhonl81/15/2025Refill [facility] [address] [facility] [address] [place] [address] Nicky Riddle PA Primary osteoarthritis, unspecified site05/25/2025Refill [facility] [address] [facility] [address] [place] [address] Heydi Syed MA Essential (primary) /14/2025[facility] [address] [place] [phone] Reina Palma LPN from Last 3 Months Immunizations ImmunizationAdministration DatesNext DueInfluenza, High Dose Seasonal, Preservative Free05/03/2021,04/05/2020,07/02/2019Influenza, High-dose Seasonal, Quadrivalent, Preservative Free07/05/2022,04/12/2020Influenza, injectable, MDCK, preservative free, glebzkmzeepi72/15/2018Influenza, injectable, quadrivalent 04/23/2016Influenza, seasonal, intradermal, preservative free04/23/2018 [...] never , or living with a partner? Lfznfke8603/05/2024UDIT-CAnswerDate RecordedQ1: How often do you have a [...] heating?Very hard 03/05/2024HQ-2AnswerDate RecordedPatient Health Questionnaire-2 Score0 06/16/2025[facility] [place] [facility] - Occupational Stress QuestionnaireAnswerDate RecordedDo you feel stress - tense, restless, nervous, or anxious, or unable to sleep at night because yourmind is troubled all the time - these days?Only a jsrprq5403/05/2024Exercise Vital SignAnswerDate Recorded On average, how many days per week do you engage in moderate to strenuous exercise (like a brisk walk)?Patient /10/2024On average, how many minutes do you engage in exercise at this level?Patient tgfstmug16/10/2024Hunger Vital SignAnswerDate RecordedWithin the past 12 months, [...] or living in a long term (including now)?No4CommentsUnknownSex and Gender InformationValueDate RecordedSex Assigned at BirthNot on fileLegal SexFemale 10/03/2022 7:12 PM EDTGender IdentityNot on fileSexual OrientationNot on file Last Filed Vital Signs Vital SignReadingTime TakenCommentsBlood Uzgthqok929/7806/16/2025 11:42 AM EST Dbghq555706/16/2025 11:42 AM RRSHoljrpsuxkr73.2 ??C (98.9 ??F)01/09/2024 1:23 PM EDTRespiratory Gjmk191602/23/2025 10:11 AM EDTOxygen Yvwhefmmyk487%06/16/2025 11:42 AM ESTInhaled Oxygen Concentration--Aipyxr85.3 kg (144 lb)06/16/2025 11:42 AM KPDVulvlu972.3 cm (5' 11 )06/16/2025 11:42 AM ESTBody Mass Index20.08 06/16/2025 11:42 AM EST Plan of Treatment Health MaintenanceDue DateLast DoneCommentsCOVID-19 Vaccine ( season) 5008/09/2021, 10/07/2020, 09/16/2020Influenza Vaccine (#1)2025 07/05/2022, 05/03/2021, 04/12/2020, Additional history existsMedicare Annual Wellness (AWV)6002/23/2025, 02/06/2024, 05/07/2022, Additional history existsPneumococcal Vaccine: 65+ PfsqoElieqeqel42/22/2020, 04/05/2020, 11/16/2013 FIT-JIGFguztvxyvdzi14/20/2022, 04/10/2022, 02/24/2019, Additional history exists SkrcglhrhVyyotkfpxuab40/20/2023, 04/09/2023, 08/18/2021, Additional history existsCT RfgibrieghuvTsrwxgmhbnff07/28/2024, 4ColonoscopyDiscontinued 03/13/2024, 03/13/2024, 12/19/2023, Additional history existsColorectal Cancer ScreeningDiscontinuedFITDiscontinuedFOBTDiscontinuedSigmoidoscopyDiscontinued Procedures Procedure NamePriorityDate/TimeAssociated DiagnosisCommentsURINARY TRACT INFECTION (HTRX)Itpmdwj7706/16/2025 12:16 PM EST Acute cystitis with hematuria POCT URINALYSIS MKQKYUIVUremcpw08/26/2025 12:13 PM EST Abnormal urine odor MM TOMOSYNTHESIS SCREENING BI04/10/2023 2:57 PM EDT LAB COLOGUARD?? COLON CANCER YLXSRILowivks23/20/2022 from Last 3 Months or Most Recently Relevant to Health Maintenance Results * URINARY TRACT INFECTION (HTRX) (06/16/2025 12:16 PM EST)ComponentValueRef RangeTest MethodAnalysis TimePerformed AtPathologist SignatureACINETOBACTER IAYTMGCU514.961 - 24.689 ppm06/17/2025 8:53 AM ESTHealthTrackRx at [facility] ACINETOBACTER BAUMANIINot Ddyfbadu90.961 - 24.689 ppm06/17/2025 8:53 AM EST [facility] at LabPortCITROBACTER QSIQSGWE962.000 - 32.015 ppm06/17/2025 8:53 AM ESTHealthTrackRx at LabPortCITROBACTER FREUNDIINot Mpnognor32.000 - 32.015 ppm06/17/2025 8:53 AM ESTHealthTrackRx at LabPortENTEROBACTER AEROGENES, WIRLNON664.000 - 32.290 ppm06/17/2025 8:53 AM ESTHealthTrackRx at LabPortENTEROBACTER AEROGENES, CLOACAENot Ghssmvuu16.000 - 32.290 ppm 06/17/2025 8:53 AM ESTHealthTrackRx at LabPortENTEROCOCCUS FAECALIS, FAECIUM0 26.000 - 33.043 ppm06/17/2025 8:53 AM ESTHealthTrackRx at LabPortENTEROCOCCUS FAECALIS, FAECIUMNot Hdzlsvdl30.000 - 33.043 ppm06/17/2025 8:53 AM EST [facility] at LabPortESCHERICHIA OOLE894.000 - 28.500 ppm06/17/2025 8:53 AM ESTHealthTrackRx at LabPortESCHERICHIA COLINot Ekvmfyyz57.000 - 28.500 ppm 06/17/2025 8:53 AM ESTHealthTrackRx at LabPortKLEBSIELLA PNEUMONIAE, OXYTOCA0 23.000 - 31.865 ppm06/17/2025 8:53 AM ESTHealthTrackRx at LabPortKLEBSIELLA PNEUMONIAE, OXYTOCANot Asxpsemc40.000 - 31.865 ppm06/17/2025 8:53 AM EST [facility] at LabPortMORGANELLA PBFVSTTC889.961 - 24.689 ppm06/17/2025 8:53 AM ESTHealthTrackRx at LabPortMORGANELLA MORGANIINot Ovtimldy18.961 - 24.689 ppm06/17/2025 8:53 AM ESTHealthTrackRx at LabPortPROTEUS MIRABILIS, VULGARIS0 23.000 - 28.500 ppm06/17/2025 8:53 AM ESTHealthTrackRx at LabPortPROTEUS MIRABILIS, VULGARISNot Iztljbxs08.000 - 28.500 ppm06/17/2025 8:53 AM EST [facility] at LabPortPSEUDOMONAS YMEGKTWKUX880.000 - 31.801 ppm06/17/2025 8:53 AM ESTHealthTrackRx at LabPortPSEUDOMONAS AERUGINOSANot Wfxppahl42.000 - 31.801 ppm06/17/2025 8:53 AM ESTHealthTrackRx at LabPortSTAPHYLOCOCCUS AUREUS0 26.000 - 31.595 ppm06/17/2025 8:53 AM ESTHealthTrackRx at [facility] STAPHYLOCOCCUS AUREUSNot Tuaykcrt92.000 - 31.595 ppm06/17/2025 8:53 AM EST [facility] at LabPortSTREPTOCOCCUS AGALACTIAE (GROUP B STREP)026.000 - 32.435 ppm06/17/2025 8:53 AM ESTHealthTrackRx at LabPortSTREPTOCOCCUS AGALACTIAE (GROUP B STREP)Not Kytuiavc52.000 - 32.435 ppm06/17/2025 8:53 AM ESTHealthTrackRx at LabPortCANDIDA ALBICANS, PARAPSILOSIS, PXIOFAVEEO339.000 - 30.347 ppm06/17/2025 8:53 AM ESTHealthTrackRx at LabPortCANDIDA ALBICANS, PARAPSILOSIS, TROPICALISNot Uvluyker73.000 - 30.347 ppm06/17/2025 8:53 AM EST [facility]PortCANDIDA IDYBVARV315.000 - 31.618 ppm06/17/2025 8:53 AM ESTHealthTrackRx at LabPortCANDIDA GLABRATANot Poljuhhw28.000 - 31.618 ppm 06/17/2025 8:53 AM ESTHealthTrackRx at LabPortCANDIDA KQUHHC587.000 - 30.873 ppm06/17/2025 8:53 AM ESTHealthTrackRx at LabPortCANDIDA KRUSEINot Detected 23.000 - 30.873 ppm06/17/2025 8:53 AM ESTHealthTrackRx at LabPortSERRATIA OHAKVTCVPV124.000 - 31.581 ppm06/17/2025 8:53 AM ESTHealth[facility]Rx at [facility] SERRATIA MARCESCENSNot Riujbnlz69.000 - 31.581 ppm06/17/2025 8:53 AM EST [facility] at LabPortSTREPTOCOCCUS PYOGENES (GROUP A STREP)019.961 - 24.689 ppm06/17/2025 8:53 AM ESTHealthTrackRx at LabPortSTREPTOCOCCUS PYOGENES (GROUP A STREP)Not Jyrpywlv03.961 - 24.689 ppm06/17/2025 8:53 AM ESTHealthTrackRx at LabPortSTAPHYLOCOCCUS EPIDERMIDIS, HAEMOLYTICUS, LUGDUNENSIS, SAPROPHYTICUS (TOGVY822.961 - 24.689 ppm06/17/2025 8:53 AM ESTHealth[facility] STAPHYLOCOCCUS EPIDERMIDIS, HAEMOLYTICUS, LUGDUNENSIS, SAPROPHYTICUS (URINANot Rtumcgyh93.961 - 24.689 ppm06/17/2025 8:53 AM EST[facility] STAPHYLOCOCCUS EPIDERMIDIS, HAEMOLYTICUS, LUGDUNENSIS, SAPROPHYTICUS (URINA0 19.961 - 24.689 ppm06/17/2025 8:53 AM ESTHealth[facility]Rx at [facility] STAPHYLOCOCCUS EPIDERMIDIS, HAEMOLYTICUS, LUGDUNENSIS, SAPROPHYTICUS (URINANot Eszzgntc55.961 - 24.689 ppm06/17/2025 8:53 AM ESTHealthTrackRx at [facility] Specimen (Source)Anatomical Location / LateralityCollection Method / Volume Collection TimeReceived RchhNvwaf56/26/2025 12:16 PM EST06/17/2025 2:25 AM EST Narrative Authorizing ProviderResult TypeResult StatusNicky Riddle PALAB BLOOD ORDERABLESFinal ResultPerforming OrganizationAddressCity/State/ZIP CodePhone Number [facility] [address] [place] [address] * (ABNORMAL) POCT urinalysis dipstick manually resulted (06/16/2025 12:13 PM EST)ComponentValueRef RangeTest MethodAnalysis TimePerformed AtPathologist SignatureGlucose, UANegativeNegative - 2000(110) ++++ mg/dLBilirubin, UA NegativeNegative - 4(70) +++ mg/dLKetones, UANegativeNegative - 160(16) ++++ mg/dLSpec Grav, UA1.0101 - 1.03Blood, UAPositiveNegative - 50 Johnnie/mcLComment: tracepH, UA6.55 - 9Protein, UANegativeNegative - 2000(20) ++++ mg/dL Urobilinogen, UA1.00.2 - 12 mg/dLLeukocytes, UAModerateNegative - 500+++ Dinesh/mcLNitrite, UANegativeNegative - PositiveSpecimen (Source)Anatomical Location / LateralityCollection Method / VolumeCollection TimeReceived Time Urine06/16/2025 12:13 PM EST Narrative Authorizing ProviderResult TypeResult StatusNicky Riddle PAPOINT OF CARE TEST ENTER/EDIT ORDERABLESFinal Result * MM TOMOSYNTHESIS SCREENING BI (04/10/2023 2:57 PM EDT)Anatomical Region LateralityModalityOtherSpecimen (Source)Anatomical Location / Laterality Collection Method / VolumeCollection TimeReceived Time04/10/2023 2:57 PM EDT Narrative 04/10/2023 2:57 PM EDT [facility] ?[address] ? [place] [address] ? Mammography Report ? Signed ? Patient: BERENICE DISLA E ?MR#: [id number] ?? : 1945 ?Acct:[id number] ?? Age/Sex: 77 / F ?ADM Date: 04/09/23 ?? Loc: MAMMO ? Attending Dr: KVNG LINTON ? Ordering Physician: KVNG LINTON ? Results: ? Date of Service: 04/09/23 ?Follow Up: ? Procedure(s): MM tomosynthesis screening BI ?? Accession Number(s): [id number] ? cc: KVNG LINTON ? Patient: ? BERENICE DISLA E. ? Exam Date: ? 04/09/2023 ?? : ? 1945 ?Gender:F ? Ordering : ? DR KVNG LINTON M.D. ? Admission #: ? [id number] ?? Family : ?Order #: ? [id number] ? CLICK HERE TO VIEW EXAM ? [...] at age 52. ? LOCATION: ? [facility] ? BREAST COMPOSITION: ? Scattered areas fibroglandular [...] By: ?Tariq Levin M.D. ? Signed By: ?04/10/231457 ? DD/ 56 ? TD/TT: ? Marketing Communications Leader: Procedure Note Radiology, Radiologist, MD - 04/12/2023 [place] [address] Mammography Report Signed Patient: BERENICE DISLA EMR#: [id number] : 8Acct:[id number] Age/Sex: 77 / FADM Date: 04/09/23 Loc: MAMMO Attending Dr: KVNG LINTON Ordering Physician: Marge LINTONults: Date of Service: 04/09/23Follow Up: Procedure(s): MM tomosynthesis screening BI Accession Number(s): [id number] cc: KVNG LINTON Patient: BERENICE DISLA Exam Date: 04/09/2023 : 1945 Gender:F Ordering : DR KVNG LINTON M.D. Admission #: [id number] Family : Order #: [id number] CLICK HERE TO VIEW EXAM RADIOLOGY REPORT [...] ovarian cancer at age 52. LOCATION: [facility] BREAST COMPOSITION: Scattered areas fibroglandular density. FINDINGS: [...] M.D. Signed By:04/10/23 1458 DD/ 1457 TD/TT: Marketing Communications Leader: Authorizing ProviderResult TypeResult StatusDanichong Linton MDCLINISYNC IMAGING [...] Rosario. et al, N Engl J Med 2014;370(14):7108-7150) The normal value (reference range) for this assay is negative. COLOGUARD RE-SCREENING RECOMMENDATION: Periodic colorectal cancer screening is an important part ofpreventive healthcare for asymptomatic individuals at average risk for colorectal cancer. ??Following a negative Cologuard result, the [place] [employer] and U.S. Multi-Society Task Force screening guidelines recommend a Cologuard re-screening interval of 3 years. References: [place] [employer] Guideline for Colorectal Cancer Screening: https://www.cancer.or g/cancer/qezix-pxuzkl-sqbuyp/nrcswbxeb-irptshdlo-erswkbk/acs-recommendations.htm chase; Dave GALEAS, Jacobo ABRAHAM, Nika ARENAS, Colorectal Cancer Screening: Recommendations for Physicians and Patients from the U.S. Multi-Society Task Force on Colorectal Cancer Screening , Am J Gastroenterology 2017; 112:5187-3510. TEST DESCRIPTION: Composite algorithmic analysis of stool [...] Piedra et al, N Engl J Med 2014;370(14):7314-9507.) Cologuard may produce a false negative or false positive result (no colorectal cancer or precancerous polyp present at colonoscopy follow up). A negative Cologuard test result does not guarantee the absence of CRC or advanced adenoma (pre-cancer). The current Cologuard screening interval is every 3 years. ([place] [employer] Society and U.S. Multi-Society Task Force). Cologuard performance data in a 10,000 patient pivotal study using colonoscopy as the reference method can be accessed at the following location: www.Essential Viewing.comment.com/results. Additional description of the Cologuard test process, warnings and precautions can be found at www.cologuard.com. Specimen (Source)Anatomical Location / LateralityCollection Method / Volume Collection TimeReceived Time04/10/2022 Narrative Authorizing ProviderResult TypeResult StatusDanichong [facility] ORDERABLESFinal ResultPerforming OrganizationAddressCity/State/ZIP CodePhone Number [facility] from Last 3 Months or Most Recently Relevant to Health Maintenance Insurance * Guarantor: Berenice Disla EAccount TypeRelation to PatientDate of BirthPhone Billing AddressPersonal/DgdnarQsmx[birth year][address] [address] Care Teams Team MemberRelationshipSpecialtyStart DateEnd Date Kvng Linton MD [address] [facility] [address] [place] [address] [facility] - [facility]22 Kvng Linton MD [address] [facility] [address] [place] [address] PCP - Rashid ND07/22/23 Reina Palma LPN [address] [facility] [address] [place] [address] 10/06/24
--- OUTSIDE RECORDS SUMMARY | 2025-06-25 18:47 | XMS_ITS | Encounter Summary ---
Author Organization [facility] Address [address] [place] [address] Phone Care Team Providers Care Clinical Pharmacy Manager Name Role Phone Unavailable Primary Care Provider Unavailabl e Reason for Referral * Imaging (Routine) - Pending ReviewSpecialtyDiagnoses / ProceduresReferred By ContactReferred To ContactRadiology Diagnoses Essential (primary) hypertension Hyperlipidemia, unspecified Other specified personal risk factors, not elsewhere classified Procedures CT cardiac scoring wo IV contrast Nicky Riddle PA-C [address] [address] Phone: tel: fax: Referral IDStatusReasonStart DateExpiration DateVisits RequestedVisits [id number] Review Perform Procedure Encounter Details DateTypeDepartmentCare Team (Latest Contact Info)Hoelcjjjxvg84/30/2025Transcribe Orders [facility] [address] [place] [address] Nicky Riddle PA-C [address] [address] Essential (primary) hypertension (Primary Dx); Hyperlipidemia, unspecified; Other specified personal risk factors, not elsewhere classified Social History Tobacco UseTypesPacks/DayYears UsedDateSmoking Tobacco: Never Assessed CommentsUnknownSex and Gender InformationValueDate RecordedSex Assigned at Not on fileLegal KpnNncxhi40/30/2025 11:52 AM ESTGender IdentityNot on file Sexual OrientationNot on filedocumented as of this encounter Plan of Treatment NameTypePriorityAssociated DiagnosesOrder ScheduleCT cardiac scoring wo IV contrastImagingRoutine Essential (primary) hypertension Hyperlipidemia, unspecified Other specified personal risk factors, not elsewhere classified Expected: 06/20/2025, Expires: 06/16/2026documented as of this encounter Visit Diagnoses Diagnosis Essential (primary) hypertension- Primary Unspecified essential hypertension Hyperlipidemia, unspecified Other specified personal risk factors, not elsewhere classified documented in this encounter
--- OUTSIDE RECORDS SUMMARY | 2025-06-25 18:47 | XMS_ITS | Clinical Summary ---
Author Organization [facility] Address [address] [place] [address] Phone Care Team Providers Care Brewmaster Name Role Phone Unavailable Primary Care Provider Unavailabl e Encounters DateTypeDepartmentCare HznfWklqmfbchlp73/30/2025Transcribe Orders [facility] [address] [place] [address] Nicky Riddle, ESA Essential (primary) hypertension (Primary Dx); Hyperlipidemia, unspecified; Other specified personal risk factors, not elsewhere classifiedfrom Last 3 Months Social History Tobacco UseTypesPacks/DayYears UsedDateSmoking Tobacco: Never Assessed CommentsUnknownSex and Gender InformationValueDate RecordedSex Assigned at Not on fileLegal NitVrqvfv48/30/2025 11:52 AM ESTGender IdentityNot on file Sexual OrientationNot on file Plan of Treatment Health MaintenanceDue DateLast DoneCommentsLipid Panel1947Welcome to Medicare Visit1945Hepatitis C Aogvamdbf38/03/1966DTaP/Tdap/Td Vaccines (1 - Tdap)11/21/1969Pneumococcal Vaccine (1 of 1 - PCV)11/21/1997Zoster Vaccines (1 of 2)11/21/1997Bone Density Scan11/21/2012RSV High Risk: (Elderly (60+) or Population) (1 - 1-dose 75+ series)11/21/2022Influenza Vaccine (#1) 5COVID-19 Vaccine (1 - 2024- season)2025HIB VaccinesAged OutNo longer eligible based on patient's age to complete this topicHPV VaccinesAged OutNo longer eligible based on patient's age to complete this topicHepatitis A VaccinesAged OutNo longer eligible based on patient's age to complete this topic Hepatitis B VaccinesAged OutNo longer eligible based on patient's age to complete this topicIPV VaccinesAged OutNo longer eligible based on patient's age to complete this topicMeningococcal VaccineAged OutNo longer eligible based on patient's age to complete this topicRotavirus VaccinesAged OutNo longer eligible based on patient's age to complete this topic Insurance
--- OUTSIDE RECORDS SUMMARY | 2025-06-25 18:47 | XMS_ITS | Clinical Summary ---
Author Organization [employer] [facility] tem Address [id number] [address] [place] [address] Care Team Providers Care Medical Assistant Internal Medicine Name Role Phone Kvng Linton MD Primary Care Provider [phone] Allergies Active AllergyReactionsCriticalityNoted DateCommentsAmoxicillin-Pot Clavulanate 04/03/2021 Other reaction(s): nausea Sulfa (Sulfonamide Antibiotics)02/07/2022 Other reaction(s): itching Medications MedicationSigDispense QuantityRefillsLast FilledStart DateEnd DateStatus atorvastatin (LIPITOR) 10 mg tablet Take 1 tablet (10 mg total) by mouth in the morning.09/22/2020ctive gabapentin (NEURONTIN) 600 mg tablet Take 1 tablet (600 mg total) by mouth 3 (three) times a day. 600 mg morning, afternoon, 300mg rbtyboa1510/24/2020ctive meloxicam (MOBIC) 15 mg tablet Take 1 [...] ProblemNoted DateDiagnosed DatePiriformis syndrome of right side10/31/2021Lumbar krhhekgg42/16/2022Lumbar hhzpekfyqxw14/12/2021isorder of brnfuo2711/30/2020 Family History Medical HistoryRelationNameCommentsNo Known ProblemsFatherCancerMotherstarted Breast cancer then to bone and brainRelationNameStatusCommentsFatherDeceased MotherDeceased Social History Tobacco UseTypesPacks/DayYears UsedDateSmoking Tobacco: FormerCigarettes Smokeless Tobacco: Never Tobacco Cessation:Counseling Given: Not Answered Alcohol UseStandard Drinks/WeekCommentsNot Currently0 (1 standard drink = 0.6 oz pure alcohol)ChildcareAnswerDate KepjzitiZevgvmxxqUjbnpgt95/12/2019Employment AnswerDate DtwublpnJvsfgciohrNiconla44/12/2019Hunger ScreeningAnswerDate RecordedWithin the past 12 months we worried whether our food would run out before we got money to buy more.Never True02/12/2024Food Insecurity - Inability Not on file02/12/2024CommentsNoSex and Gender InformationValueDate RecordedSex Assigned at BirthNot on fileLegal PagTepspy93/06/2015 11:37 AM EDT Gender IdentityNot on fileSexual OrientationNot on file Last Filed Vital Signs Vital SignReadingTime TakenCommentsBlood Cpfqgdde824/7008 9:05 AM EDT Cxoca764003/13/2024 9:05 AM KMRCrvhlzqnenp04.5 ??C (97.7 ??F)03/13/2024 6:44 AM EDTRespiratory Ksza9007 9:05 AM EDTOxygen Jtnrhyfgiz97%03/13/2024 9:05 AM EDTInhaled Oxygen Concentration--Ixqaqn83 kg (136 lb 11 oz)03/13/2024 6:44 AM DCNSafyew877 cm (5' 10.87 )03/13/2024 6:44 AM EDTBody Mass Index19.14003/13/2024 6:44 AM EDT Plan of Treatment Health MaintenanceDue DateLast DoneCommentsDepression Yykvyzwhn70/03/1960Zoster (Shingles) Vaccine (1 of 2)11/21/1997Fall Risk Jsjkdbaph32/03/2013DTaP,Tdap and Td Vaccines (2 - Td or Tdap)/08/2011RSV ( or age 60+ yrs) (1 - 1-dose 75+ series)11/21/2022Tobacco Mjbtndoht61/OVID-19 Vaccine ( season)/, 10/07/2020, 09/16/2020 Influenza Mtldpkp51/01/790694/, 05/03/2021, 04/12/2020, Additional history exists Medical Devices ImplantedTypeAreaManufacturerDevice IdentifierShelf Expiration DateModel / Serial / LotOrthopedic ImplantOrthopedic ImplantRight: Foot Insurance * Guarantor: Berenice Disla EAccount TypeRelation to PatientDate of BirthPhone Billing AddressPersonal/UbbrzvUrbs84/03/1946 [address] [address] Care Teams Team MemberRelationshipSpecialtyStart DateEnd Date Kvng Linton MD [address] [facility], [facility] [address] [place] [id number] PCP - GeneralInternal Medicine11/30/20
[2025-06-25 19:13] VITALS: BP 109/67; PULSE 72; O2SAT 99
[2025-06-25 19:19] LABS: Alanine Aminotransferase 24 U/L (14-59); Albumin Globulin Ratio 1.0; Albumin Level 3.6 g/dL (3.4-5.0); Alkaline Phosphatase 102 U/L (46-116); Anion Gap 11.6; Aspartate Amino Transferase 17 U/L (15-37); Blood Urea Nitrogen 17.0 mg/dL (7.0-18.0); Calcium 9.1 mg/dL (8.5-10.1); Carbon Dioxide 30.1 mmol/L (21.0-32.0); Chloride 95 mmol/L (98-107); Estimated GFR (African America >60 (>=60 mL/min/1.73m^2); Estimated GFR (Non-African Ame 54 (>=60 mL/min/1.73m^2); Globulin 3.6 g/dL; Glucose 97 mg/dL (74-106); Potassium 3.7 mmol/L (3.5-5.1); Sodium 133 mmol/L (136-145); Total Protein 7.2 g/dL (6.4-8.2)
[2025-06-25 19:27] LABS: Thyroid Stimulating Hormone 1.865 uIU/mL (0.358-3.740)
[2025-06-25 19:33] LABS: Hematocrit 36.2 % (36.0-48.0); Hemoglobin 12.4 g/dL (12.0-16.0); Immature Granulocytes Abs Auto 0.02 10^3/uL (0.00-0.03); Immature Granulocytes Pct Auto 0.3 % (0.0-0.5); Lymphocytes Absolute Auto 2.0 10^3/uL (1.2-3.8); Mean Corpuscular HGB Conc 34.3 g/dL (29.9-35.2); Mean Corpuscular Hemoglobin 30.9 pg (26.7-34.0); Mean Corpuscular Volume 90.3 fL (81.0-99.0); Platelet Count 255 10^3/uL (150-450); Red Blood Count 4.01 10^6/uL (4.20-5.40); White Blood Count 7.8 10^3/uL (4.0-11.0)
[2025-06-25 21:18] VITALS: BP 147/77; PULSE 82; O2SAT 98
[2025-06-25] MEDS: MAGNESIUM CITRATE 296 ML SOLUTION PO (21:18)
== END 2025-06-25 21:18 | disposition home or self-care (01) ==
PROVIDERS: Physician Assistant; Emergency Provider Emergency Medicine; PCP Internal Medicine
DX: K59.00 Constipation, unspecified (principal); K57.90 Diverticulosis of intestine, part unspecified, without perforation or abscess without bleeding
CPT/HCPCS: 36415; 74018; 80053; 84443; 85025; 99284

== ENCOUNTER 2025-07-13 14:21 | Outpatient (OUT) | payer MEDICARE, SELFPAY ==
--- OUTSIDE RECORDS SUMMARY | 2024-06-29 09:00 | XMS_ITS ---
Author Organization [facility] Servic es Address [address] [place] [address] Care Team Providers Care Box Estimator Name Role Phone Araceli Woo Primary Care Provider REASON FOR VISIT IMPRESSION-HEAVEN Encounters Encounter Location Date Provider Diagnosis [address] [address] 06/29/2024 Araceli Woo Plan Of Treatment No Information Progress Notes * JESSICA SILVA EDOB: 8 (79 yo F)Acc No.[id number]:06/29/2024 Dental Appointment Patient: VALERIE TOLENTINOMERRILL Perez :?Araceli Woo DDSDOB:1945???Age:78 Y ???Sex:FemaleDate:06/29/2024hone:[phone]:[address] Subjective: * Chief Complaints: * I MPRESSION-HEAVEN * Electronic signature of Araceli Woo DDS on 07/13/2025 at 02:24 PM ESTSign off status: Pending * Provider: Mercedez Woo DDS Date: 08/30/2023 Generated for Printing/Faxing/eTransmitting on:?07/13/2025 02:24 PM EST
--- OUTSIDE RECORDS SUMMARY | 2024-08-04 09:30 | XMS_ITS ---
Author Organization [facility] Serv[facility] es Address [address] [place] [address] Care Team Providers Care Box Toe Cementer Name Role Phone Araceli Woo Primary Care Provider REASON FOR VISIT MANOLO-HEAVEN Encounters Encounter Location Date Provider Diagnosis [address] [address] 08/04/2024 Araceli Woo Plan Of Treatment No Information Progress Notes * JESSICA SILVA EDOB: 8 (79 yo F)Acc No.[id number]:08/04/2024 Dental Appointment Patient: Nabor LUEVANO JESSICA Perez :?Araceli Woo DDSDOB:1945???Age:78 Y ???Sex:FemaleDate:08/04/2024Phone:[phone]:[address] [place], [place] [address] Subjective: * Chief Complaints: * I MPRESSION-HEAVEN * Electronic signature of Araceli Woo DDS on 07/13/2025 at 02:23 PM ESTSign off status: Pending * Provider: Mercedez Woo DDS Date: 0 08/04/2024 Generated for Printing/Faxing/eTransmitting on:?07/13/2025 02:23 PM EST
--- OUTSIDE RECORDS SUMMARY | 2024-09-04 09:30 | XMS_ITS ---
Author Organization [facility] Servic es Address [address] [place] [address] Care Team Providers Care Pot Tender Name Role Phone Araceli Woo Primary Care Provider REASON FOR VISIT FILLING Encounters Encounter Location Date Provider Diagnosis [address] [address] 09/04/2024 Araceli Woo Plan Of Treatment No Information Progress Notes * JESSICA SILVA EDOB: 8 (79 yo F)Acc No.[id number]:09/04/2024 Patient:?JESSICA SILVA :?Araceli Woo DDSDOB:1945???Age:78 Y ???Sex:FemaleDate:09/04/2024Phone:[phone]:[address] [place], [place] [address] Subjective: * Chief Complaints: * F ILLING * Electronic signature of Araceli Woo DDS on 07/13/2025 at 02:24 PM ESTSign off status: Pending * Provider: Mercedez Woo DDS Date: 0 09/04/2024 Generated for Printing/Faxing/eTransmitting on:?07/13/2025 02:24 PM EST
--- OUTSIDE RECORDS SUMMARY | 2024-10-29 05:00 | XMS_ITS ---
Author Organization [facility] es Address [address] [place] [place] [address] Care Team Providers Care Professor Computer Science Name Role Phone Araceli Woo Primary Care Provider Glenn Wheat Unavailable [phone] REASON FOR VISIT FILLING Encounters Encounter Location Date Provider Diagnosis [place] [address] [place] [address] 10/29/2024 Glenn Haynes Plan Of Treatment No Information Progress Notes * JESSICA SILVA EDOB: 8 (79 yo F)Acc No.[id number]:10/29/2024 Patient:?JESSICA SILVA :?GLENN HAYNES DDSDOB:1945???Age: 78 Y???Sex:FemaleDate:10/29/2024Phone:[phone]:[address]Pcp:Araceli Woo Subjective: * Chief Complaints: * F ILLING * Electronic signature of Glenn Haynes DDS on 07/13/2025 at 02:24 PM ESTSign off status: Pending * Provider: Zohra HAYNES DDS Date: 0 10/29/2024 Generated for Printing/Faxing/eTransmitting on:?07/13/2025 02:24 PM EST
--- OUTSIDE RECORDS SUMMARY | 2024-11-27 08:00 | XMS_ITS ---
Author Organization [facility] Serv[facility] es Address [address] [place] [address] Care Team Providers Care Family Specialist Name Role Phone Araceli Woo Primary Care Provider REASON FOR VISIT FILLING Encounters Encounter Location Date Provider Diagnosis [address] [address] 11/27/2024 Araceli Woo Plan Of Treatment No Information Progress Notes * JESSICA SILVA EDOB: 8 (79 yo F)Acc No.[id number]:11/27/2024 Patient:?JESSICA SILVA :?Araceli Woo DDSDOB:1945???Age:79 Y ???Sex:FemaleDate:11/27/2024Phone:[phone]:[address] [place], [place] [address] Subjective: * Chief Complaints: * F ILLING * Electronic signature of Araceil Woo DDS on 07/13/2025 at 02:25 PM ESTSign off status: Pending * Provider: Mercedez Woo DDS Date: 0 11/27/2024 Generated for Printing/Faxing/eTransmitting on:?07/13/2025 02:25 PM EST
--- OUTSIDE RECORDS SUMMARY | 2024-12-01 09:00 | XMS_ITS ---
Author Organization [facility] Servic es Address [address] [place] [address] Care Team Providers Care Transplant Case Manager Name Role Phone Araceli Woo Primary Care Provider REASON FOR VISIT MANOLO -HEAVEN Encounters Encounter Location Date Provider Diagnosis [address] [address] 12/01/2024 Araceli Woo Plan Of Treatment No Information Progress Notes * JESSICA SILVA EDOB: 8 (79 yo F)Acc No.[id number]:12/01/2024 Dental Appointment Patient: VALERIE TOLENTINOMERRILL Perez :?Araceli Woo DDSDOB:1945???Age:79 Y ???Sex:FemaleDate:12/01/2024Phone:[phone]:[address] Subjective: * Chief Complaints: * I MPRESSION -HEAVEN * Electronic signature of Araceli Woo DDS on 07/13/2025 at 02:23 PM ESTSign off status: Pending * Provider: Mercedez Woo DDS Date: 0 12/01/2024 Generated for Printing/Faxing/eTransmitting on:?07/13/2025 02:23 PM EST
--- OUTSIDE RECORDS SUMMARY | 2024-12-11 09:45 | XMS_ITS ---
Author Organization [facility] Serv[facility] Address [address] [place] [address] Care Team Providers Care Noodle Catalyst Maker Name Role Phone Araceli Woo Primary Care Provider Glenn Wheat Unavailable [phone] REASON FOR VISIT FILLING Encounters Encounter Location Date Provider Diagnosis [place] [address] [place] [address] 12/11/2024 Glenn Hanyes Plan Of Treatment No Information Progress Notes * JESSICA SILVA EDOB: 8 (79 yo F)Acc No.[id number]:12/11/2024 Patient:?JESSICA SILVA :?GLENN CUCA HAYNES DDSDOB:1945???Age: 79 Y???Sex:FemaleDate:12/11/2024Phone:[phone]:[address]Pcp:Araceli Woo Subjective: * Chief Complaints: * F ILLING * Electronic signature of Glenn Haynes DDS on 07/13/2025 at 02:24 PM ESTSign off status: Pending * Provider: Zohra HAYNES DDS Date: 0 12/11/2024 Generated for Printing/Faxing/eTransmitting on:?07/13/2025 02:24 PM EST
--- OUTSIDE RECORDS SUMMARY | 2024-12-24 09:30 | XMS_ITS ---
Author Organization [facility] Servic es Address [address] [place] [address] Care Team Providers Care Photographic Equipment Inspector Name Role Phone Araceli Woo Primary Care Provider REASON FOR VISIT IMPRESSIONS- DR. Hodge Encounters Encounter Location Date Provider Diagnosis [address] [address] 12/24/2024 Araceli Woo Plan Of Treatment No Information Progress Notes * JESSICA SILVA EDOB: 8 (79 yo F)Acc No.[id number]:12/24/2024 Dental Appointment Patient: JESSICA TOLENTINO :?Araceli Woo DDSDOB:1945???Age:79 Y ???Sex:FemaleDate:12/24/2024Phone:[phone]:[address] Subjective: * Chief Complaints: * I MPRESSIONS- DR. Hodge * Electronic signature of Araceli Woo DDS on 07/13/2025 at 02:25 PM ESTSign off status: Pending * Provider: Mercedez Woo DDS Date: 0 12/24/2024 Generated for Printing/Faxing/eTransmitting on:?07/13/2025 02:25 PM EST
--- OUTSIDE RECORDS SUMMARY | 2025-04-02 08:00 | XMS_ITS ---
Author Organization [facility] Serv[facility] es Address [address] [place] [address] Care Team Providers Care Administrative Intern Name Role Phone Araceli Woo Primary Care Provider [phone] REASON FOR VISIT FILLING Encounters Encounter Location Date Provider Diagnosis [address] [address] 04/02/2025 Araceli Woo Plan Of Treatment No Information Progress Notes * JESSICA SILVA EDOB: 8 (79 yo F)Acc No.[id number]:04/02/2025 Patient:?JESSICA SILVA :?Araceli Woo DDSDOB:1945???Age:79 Y ???Sex:FemaleDate:04/02/2025Phone:[phone]:[address] [place], [place] [address] Subjective: * Chief Complaints: * F ILLING * Electronic signature of Araceli Woo DDS on 07/13/2025 at 02:25 PM ESTSign off status: Pending * Provider: Mercedez Woo DDS Date: 0 04/02/2025 Generated for Printing/Faxing/eTransmitting on:?07/13/2025 02:25 PM EST
--- OUTSIDE RECORDS SUMMARY | 2025-04-13 05:40 | XMS_ITS ---
Author Organization [facility] Address [address] [place] [address] Care Team Providers Care Marine Photographer Name Role Phone Araceli Woo Primary Care Provider Lizeth Dimas [phone] REASON FOR VISIT FILLING Encounters Encounter Location Date Provider Diagnosis [facility] [address] [place] [address] 04/13/2025 Lizeth Dimas Plan Of Treatment No Information Progress Notes * JESSICA SILVA EDOB: 8 (79 yo F)Acc No.[id number]:04/13/2025 Patient:?SHIRAVALERIEMERRILL Perez :?Lizeth YiDOB:1945???Age:79 Y???Sex:Female Date:04/13/2025Phone:[phone]:[address]Pcp:Araceli Woo Subjective: * Chief Complaints: * F ILLING * Electronic signature of Lizeth Dimas , [id number] on 07/13/2025 at 02:24 PM ESTSign off status: Pending * Provider: Chris Dimas Date: 0 04/13/2025 Generated for Printing/Faxing/eTransmitting on:?07/13/2025 02:24 PM EST
--- OUTSIDE RECORDS SUMMARY | 2025-07-08 19:06 | XMS_ITS | Continuity of Care Document ---
Author Organization [facility] Address [address] [place] [address] Phone Care Team Providers Care Fermentation Operator Name Role Phone Kvng Linton II Primary Care Provider Nicky Riddle NP-C Attending Provider Care Teams Patient Care Team Team Status: Active Member Role/Relationship Status Dates Kvng Linton II MD Primary Care Provider Active Visit Care Team Team Status: Inactive Member Role/Relationship Status Dates Kvng Linton II MD Primary Care Provider Active Start: July 08, 2025 End: July 08, 2025XI ZayasCAttending ProviderActiveStart: July 08, 2025 End: July 08, 2025 Chief Complaint and Reason for Visit Chief Complaint Admit Date I10 E78.5 Z91.89 July 08, 2025 9:51am Allergies, Adverse Reactions, Alerts Allergen Type Severity Reaction Last Updated Verified Status No Known Allergies Allergy Unknown June 20, 2020 12:48pmYesActive Social History Smoking Status Status Start Date End Date Date of Observa tion Ex-smoker (finding) June 20, 2020 12:46pm Observation Status Observation Response Date of Response Legal Sex Female (finding) Sex Assigned At BirthFemaleMay 1945 Family History Relationship Condition Age at Onset Recorded Date/T [place] father Heart disease Unknown motherMalignant neoplasm of breastUnknownfatherDeceasedUnknownHeart disease UnknownmotherMalignant neoplasmUnknownDeceasedUnknown Medications Medication Status Dose Units Route Directions Qty Days Refills S tart Date Stop Date End Date Reason(s) Instructions Adherence Gabapentin 600 mg tablet Active 300 MG PO Daily June 20, 2020 12:00amUnknownAtorvastatin 10 mg zmdkemYemkaq05VEHZCpubw June 20, 2020 12:00amUnknownMeloxicam 15 mg pumhjkQypncd15RIXMWeqwr June 20, 2020 12:00amUnknownAtenolol-Chlorthalidone 50-25 mg tabletActive1 TABPODailyJune 20, 2020 12:00amUnknownOmeprazole 40 mg capsule,delayed release(DR/EC)Bhuujm18WDBFVnudtXvhitpcv 30th, 2020 12:00amUnknownFluoxetine 10 mg rzbzlwaTqzfop82KAXGNplhkRpajstqj 30th, 2020 12:00amUnknown Procedures Procedure Date Performed Status CT heart calcium score wo July 08, 2025 10 :07am completed Relevant Diagnostic Tests and/or Laboratory Data Diagnostic Imaging Reports Author Danny Seaman [facility]edoReport Date/TimeDecember 2024 11:19am [facility] [place] [address] CT Scan Report Signed Patient: Berenice Disla MR#: [id number] : 1945 Acct:[id number] Age/Sex: 79 / F ADM Date: Loc: CT Room: Type: [facility] Attending Dr: Nicky REAGAN Copies to: Nicky Riddle PA-C~ Ordering Provider: Nicky Riddle PA-C Date of Service: 07/08/25 CT/CT heart calcium score wo: Z91.89,I10,E78.5 CT heart calcium score w/o contrast REASON FOR EXAM: Chest discomfort. TECHNIQUE: Prospective gated imaging of the heart were obtained for calcium evaluation of the coronary arteries. Agatston score was calculated. The CT exam was performed using one or more the following dose reduction techniques: Automated exposure control, adjustment of the MA and/or Kv according to patient size, or use of the iterative reconstruction technique. COMPARISON:None FINDINGS: LEFT MAIN: 0 LEFT ANTERIOR DESCENDIN CIRCUMFLEX: 5.90 RIGHT CORONARY ARTERY: 13.65 TOTAL AGATSTON CALCIUM SCORE: 19.55 This calcium score places the patient at the 33rd percentile. EXTRACARDIAC STRUCTURES: No evidence of mediastinal or hilar lymphadenopathy. No pericardial effusion. Visualized lungs demonstrate no acute process. No lung nodule is seen. Limited images of the upper abdomen demonstrate no acute findings. CT/CT heart calcium score wo IMPRESSION: No significant extracardiac CT findings. CALCIUM SCORE INTERPRETATION (1-99) RIsk is mildly increased. Treatment recommendation - moderate intensitystatin. Source: September 2017 - Coronary artery calcium data and reporting system. An expert consensus document of the Society of Cardiovascular Computed Tomography) CALCIUM SCORING OVERVIEW: Coronary calcium is a marker for plaque in a blood vessel or atherosclerosis (hardening of the arteries). The presence and amount of calcium detected in thecoronary artery by the CT scan estimates the presence and amount of atherosclerotic plaque. These calcium deposits can appear years before the d evelopment of heart disease symptoms such as chest pain and shortness of breath. A calcium score is computed of each of the coronary arteries based upon the volume and density of the calcium deposits. This can be referred to as your calcified plaque burden. It does not corresponddirectly to the percentage of narrowing in the artery, but does correlate with the severity of the overall coronary atherosclerotic burden. This score is then used to determine the calcium percentile which compares your calcified plaque tothat of other asymptomatic men and women of the same age. The calcium score, in combination with the percentile, enables your physician todetermine your risk of developing symptomatic coronary arterydisease, and to measure the progression of disease as well as the effectiveness of treatment. A score of zero indicates that there is no calcified plaque burden. This implies that there is no significant coronary artery narrowing and very low likelihood of a cardiac event over at least the next 3 years. It does not absolutely rule out the presence of soft, noncalcified plaque or totally eliminate the possibility of a cardiac event. A score greater than zero indicates at least some coronary artery disease. As the score increases, so does the likelihood of a significant coronary narrowing and the likelihood of a coronary event over the next 3 years. Similarly, the likelihood of a coronary event increases with increasing calciumpercentiles. Impression dictated by: Danny Seaman Jr., D.O. 07/08/2025 11:19 AM Dictation Location: RADIO-PC-23 Transcribed By: PWS 07/08/25 1119 Dictated By: Danny Seaman Jr, DO 07/08/25 1116 Signed By: <Electronically signed by Danny Seaman Jr, in OV> 07/08/25 1119 Advance Directives Advance Directive Response Recorded Date/ Time Advance Directives No May 4:13pm Insurance Providers Guarantor Berenice Disla Address [address] [place] [address] [place] [id number] Info.Home Phone: Coverage Status Update:2025 Payer Group Member ID Coverage Type Subscriber Relationship to Subscriber Effective Date Expiration Date MMO Retired Id: [id number] E Meade Id: [id number] [address] [address] Home Phone: SelfMedicare [id number] E Meade Id: [id number] [address] [place] [address] [facility] [address] Home Phone: SelfAnthem MCR PFFS nullSelfSelf Pay [id number] Encounters Encounter Location(s) Arrival/Admit Date Discharge/Departure Date Discharge/Departure Disposition Provider(s) Departed Clinical -CT Scan [facility] July 08, 2025 9:51am July 08, 2025 9:52am Discharged to home care or self care (routine discharge) Nabor Zayas PA-C
--- OUTSIDE RECORDS SUMMARY | 2025-07-13 14:24 | XMS_ITS | Encounter Summary ---
Author Organization [facility] Address [address] [place] [address] Care Team Providers Care Tin Container Straightener Name Role Phone Kvng Linton MD Primary Care Provider [phone] Kvng Linton MD Unavailable [phone] Reina Palma LPN Unavailable Reason for Referral * Consultation (Routine) - AuthorizedSpecialtyDiagnoses / ProceduresReferred By ContactReferred To ContactCardiology Diagnoses Coronary arteriosclerosis due to lipid rich plaque Mixed hyperlipidemia Procedures [place] OFFICE/OUTPATIENT NEW HIGH MDM 60 MINUTES Michael Riddle PA [address] [place] [address] Phone: tel: fax: Dorothy Ch MD [address] [place] [address] Phone: tel: fax: Referral IDStatusReasonStart DateExpiration DateVisits RequestedVisits [id number] Specialty Services Required / Encounter Details DateTypeDepartmentCare Team (Latest Contact Info)Ctlaxwkowrt62/18/2025Results Follow-Up [facility] [place] [facility] [place] [address] [place] [address] Michael Riddle PA [address] [facility] [address] [place] [address] CT HEART CALCIUM SCORE WO Social History Tobacco UseTypesPacks/DayYears UsedDateSmoking Tobacco: FormerCigarettes0.527 [...] Gatherings with Friends and FamilyNot on file03/05/2024ttends Taoist ServicesNot on file03/05/2024ctive Member of Clubs or OrganizationsNot on file03/05/2024ttends Club or Organization MeetingsNot on file03/05/2024re you , , , , never , or living with a partner?Nncjspp1003/05/2024UDIT-C AnswerDate RecordedQ1: How often do you have [...] and heating?Very hard03/05/2024HQ-2 AnswerDate RecordedPatient Health Questionnaire-2 Ixtza28608/16/2024[facility] [place] of Occupational Health - Occupational Stress QuestionnaireAnswerDate RecordedDo you feel stress - tense, restless, nervous, or anxious, or unable to sleep at night because yourmind is troubled all the time - these days?Only a ewumvt9903/05/2024Exercise Vital SignAnswerDate RecordedOn average, how many days per week do you engage in moderate to strenuous exercise (like a brisk walk)? Patient vqsunmry24/10/2024On average, how many minutes do you engage in exercise at this level?Patient pcszmkyy59/10/2024Hunger Vital SignAnswerDate Recorded Within the past 12 [...] steady place to sleep or slept in [facility] (including now)?No10/30/2023Housing Stability Vital SignAnswerDate RecordedIn the last 12 months, was there a time when you were not able to pay the mortgage or rent on time?No03/05/2024In the past 12 months, how many times have you moved where you were living?t any time in the past 12 months, were you homeless or living in a fci (including now)?No 03/05/2024CommentsUnknownSex and Gender InformationValueDate RecordedSex Assigned at BirthNot on fileLegal JskCrutjy55/15/2023 7:12 PM EDTGender Identity Not on fileSexual OrientationNot on filedocumented as of this encounter Miscellaneous Notes * Telephone Encounter - Reina Palma LPN - 07/08/2025 2:09 PM EST Call to pt. No answer left detailed message. Encouraged to call back if has any questions. * Addendum Note - YUE Mathew - 07/08/2025 1:44 PM ESTAddended by: MICHAEL RIDDLE on: 07/08/2025 01:44 PM Modules accepted: Orders * Telephone Encounter - YUE Mathew - 07/08/2025 1:43 PM EST Referral ordered for patient. Have her reach out after Bryanna if she has not heard anything to get scheduled. * Telephone Encounter - Reina Palma LPN - 07/08/2025 1:08 PM EST Pt updated and will clam picker medication after reviewing side effects. Pt would like to be referred to adjunct history instructor if possible. States she can not sleep well or lay down really as long as her heart keeps beating the way it does when she lies down. * Telephone Encounter - YUE Mathew - 07/08/2025 11:56 AM EST Please let pt know that her Coronary Artery Calcium Scoring showed based on the current plaque formation shows her risk is mildly increased for a cardiac event. Treatment recommendation - moderate intensity statin. If she is agreeable, please send in Atorvastatin 10 mg daily for pt to start. documented in this encounter Plan of Treatment NameTypePriorityAssociated DiagnosesOrder ScheduleAmbulatory referral to CardiologyOutpatient ReferralRoutine Coronary arteriosclerosis due to lipid rich plaque Mixed hyperlipidemia Expected: 07/08/2025 (Approximate), Expires: 01/06/2026documented as of this encounter Visit Diagnoses Diagnosis Coronary arteriosclerosis due to lipid rich plaque- Primary Coronary atherosclerosis due to lipid rich plaque Mixed hyperlipidemia documented in this encounter Additional Health Concerns AssessmentNoted TimePHQ-9 Depression Total Score: 9:00 AM EDT documented as of this encounter Care Teams Team MemberRelationshipSpecialtyStart DateEnd Date Kvng Linton MD [address] [place] [address] PCP - GeneralInternal Medicine11/27/22 Kvng Linton MD [address] [place] [address] PCP - Rashid GALVEZ07/22/23 Reina Palma LPN [address] [place] [address] 10/06/24documented as of this encounter
--- OUTSIDE RECORDS SUMMARY | 2025-07-13 14:24 | XMS_ITS ---
Author Organization [facility] Address [address] [place] [address] Care Team Providers Care Bridge Ironworker Helper Name Role Phone Kvng Linton MD Primary Care Provider [phone] Kvng Linton MD Unavailable [phone] Reina Palma LPN Unavailable Emergency Department Transitional Care Management (TCM) Status:Closed (Closed) Start date:06/25/2025 Enrollment date:06/28/2025 Enrollment reason:Identified using discharge data End date:06/29/2025 Close reason:Actively enrolled in CCM Overview Discharged from [facility] ER on 06/25. Please contact within 2 days of discharge for ER IMMANUEL and schedule a follow-up appointment if needed. Continued Care and Services Coordination
--- OUTSIDE RECORDS SUMMARY | 2025-07-13 14:24 | XMS_ITS | Encounter Summary ---
Author Organization [facility] Address [address] [place] [address] Care Team Providers Care Physical Therapy Director Name Role Phone Kvng Linton MD Primary Care Provider [phone] Kvng Linton MD Unavailable [phone] Reina Palma LPN Unavailable Encounter Details DateTypeDepartmentCare Team (Latest Contact Info)Yxxjnlwucur53/15/2025Patient Outreach [facility] [address] [place] [phone] Reina Palma LPN [address] [facility] [address] [place] [address] Social History Tobacco UseTypesPacks/DayYears UsedDateSmoking Tobacco: FormerCigarettes0.527 [...] , never , or living with a partner?Cxtgaaw5103/05/2024UDIT-C AnswerDate RecordedQ1: How often do you have [...] and heating?Very hard03/05/2024HQ-2 AnswerDate RecordedPatient Health Questionnaire-2 Ipwfz71608/16/2024[facility] [place] of Occupational Health - Occupational Stress QuestionnaireAnswerDate RecordedDo you feel stress - tense, restless, nervous, or anxious, or unable to sleep at night because yourmind is troubled all the time - these days?Only a zyrzqi2103/05/2024Exercise Vital SignAnswerDate RecordedOn average, how many days per week do you engage in moderate to strenuous exercise (like a brisk walk)? Patient tljddmab42/10/2024On average, how many minutes do you engage [...] or living in a group home (including now)?No 03/05/2024CommentsUnknownSex and Gender InformationValueDate RecordedSex Assigned at BirthNot on fileLegal QjkJbtkfq02/15/2023 7:12 PM EDTGender Identity Not on fileSexual OrientationNot on filedocumented as of this encounter Progress Notes * Reina Palma LPN - 07/05/2025 10:20 AM EST Pt callas and asks credit underwriter who to call to [facility] heart cath completed. She states it was in [facility] at referral and it was sent to [facility]. I look up number and give this to pt. Pt denies any other needs or concerns at this time. documented in this encounter Plan of Treatment Not on file documented as of this encounter Visit Diagnoses Diagnosis Essential (primary) hypertension- Primary Unspecified essential hypertension Inflammatory and toxic neuropathy (HCC) documented in this encounter Additional Health Concerns AssessmentNoted TimePHQ-9 Depression Total Score: 9:00 AM EDT documented as of this encounter Care Teams Team MemberRelationshipSpecialtyStart DateEnd Date Kvng Linton MD [address] [place] [address] PCP - GeneralInternal Medicine11/27/22 Kvng Linton MD [address] [facility] [address] [place], [place] [address] PCP - Rashid GALVEZ07/22/23 Reina Palma LPN [address] [address] 10/06/24documented as of this encounter
--- OUTSIDE RECORDS SUMMARY | 2025-07-13 14:24 | XMS_ITS | Encounter Summary ---
Author Organization [facility] Address [address] [place] [address] Care Team Providers Care Arch Cushion Press Operator Name Role Phone Kvng Linton MD Primary Care Provider [phone] Kvng Linton MD Unavailable [phone] Reina Palma LPN Unavailable Encounter Details DateTypeDepartmentCare Team (Latest Contact Info)Vssejqureaj86/18/2025External Result Encounter [facility] Unsolicited Nicky Riddle PA [address] [facility] [address] [place] [address] Social History Tobacco UseTypesPacks/DayYears UsedDateSmoking Tobacco: FormerCigarettes0.527 [...] Gatherings with Friends and FamilyNot on file03/05/2024ttends Denominational ServicesNot on file03/05/2024ctive Member of Clubs or OrganizationsNot on file03/05/2024ttends Club or Organization MeetingsNot on file03/05/2024re you , , , , never , or living with a partner?Ikxmnlc1703/05/2024UDIT-C AnswerDate RecordedQ1: How often do you have [...] and heating?Very hard03/05/2024HQ-2 AnswerDate RecordedPatient Health Questionnaire-2 Laovn46208/16/2024[facility] [place] [facility] - Occupational Stress QuestionnaireAnswerDate RecordedDo you feel stress - tense, restless, nervous, or anxious, or unable to sleep at night because yourmind is troubled all the time - these days?Only a kfroea6303/05/2024Exercise Vital SignAnswerDate RecordedOn average, how many days per week do you engage in moderate to strenuous exercise (like a brisk walk)? Patient utquqcse68/10/2024On average, how many minutes do you engage in exercise at this level?Patient vdtdaivg62/10/2024Hunger Vital SignAnswerDate Recorded Within the past 12 [...] or living in a nursing home (including now)?No 03/05/2024CommentsUnknownSex and Gender InformationValueDate RecordedSex Assigned at BirthNot on fileLegal BupLuokfc96/15/2023 7:12 PM EDTGender Identity Not on fileSexual OrientationNot on filedocumented as of this encounter Plan of Treatment Not on file documented as of this encounter Procedures Procedure NamePriorityDate/TimeAssociated DiagnosisCommentsCT HEART CALCIUM SCORE WO07/08/2025 11:16 AM EST documented in this encounter Results * CT HEART CALCIUM SCORE WO (07/08/2025 11:16 AM EST)Anatomical RegionLaterality ModalityRadiographic ImagingSpecimen (Source)Anatomical Location / Laterality Collection Method / VolumeCollection TimeReceived Time07/08/2025 11:16 AM EST Impressions 07/08/2025 11:21 AM EST No significant extracardiac CT findings. ?? CALCIUM SCORE INTERPRETATION ? (1-99) ??RIsk is mildly increased. ??Treatment recommendation - moderate intensity statin. ? Source: September 2017 - Coronary artery calcium data and reporting system. ??An expert consensus document of the Society of Cardiovascular Computed Tomography) ? CALCIUM SCORING OVERVIEW: ? Coronary calcium is a marker for plaque in a blood vessel or atherosclerosis (hardening of the arteries). ??The presence and amount of calcium detected in the coronary artery by the CT scan estimates the presence and amount of atherosclerotic plaque. ??These calcium deposits can appear years before the development of heart disease symptoms such as chest pain and shortness of breath. ? A calcium score is computed of each of the coronary arteries based upon the volume and density of the calcium deposits. ??This can be referred to as your calcified plaque burden. ??It does not correspond directly to the percentage of narrowing in the artery, but does correlate with the severity of the overall coronary atherosclerotic burden. ? This score is then used to determine the calcium percentile which compares your calcified plaque to that of other asymptomatic men and women of the same age. ??The calcium score, in combination with the percentile, enables your physician to determine your risk of developing symptomatic coronary artery disease, and to measure the progression of disease as well as the effectiveness of treatment. ? A score of zero indicates that there is no calcified plaque burden. ??This implies that there is no significant coronary artery narrowing and very low likelihood of a cardiac event over at least the next 3 years. ??It does not absolutely rule out the presence of soft, noncalcified plaque or totally eliminate the possibility of a cardiac event. ? A score greater than zero indicates at least some ??coronary artery disease. ??As the score increases, so does the likelihood of a significant coronary narrowing and the likelihood of a coronary event over the next 3 years. ??Similarly, the likelihood of a coronary event increases with increasing calcium percentiles. ? Impression dictated by: Danny Seaman Jr., D.O. ??07/08/2025 11:19 AM ? Dictation Location: [place] [address] ? Transcribed By: ? PWS ?07/08/25 1119 ? Dictated By: ?Danny Seaman Jr, DO ?07/08/25 1116 ? Signed By: <Electronically signed by Danny Seaman Jr, DO in OV> ?07/08/ 1119 Narrative 07/08/2025 11:21 AM [facility] ?[facility] [place] ?[address] ? [place] [address] ? CT Scan Report ? Signed ? Patient: Coy,Berenice E ?MR#: [id number] ?? 13 ? : 1945 ?Acct:[id number] ? Age/Sex: 79 / F ?ADM Date: 07/08/25 ? Loc: CT ?Room: ?Type: REG CLI ?? Attending Dr: Nicky REAGAN ?? Copies to: Nicky Riddle PA-C ? Ordering Provider: Nicky Riddle PA-C ?? Date of Service: 07/08/25 ?? CT/CT heart calcium score wo: Z91.89,I10,E78.5 ? CT heart calcium score w/o contrast ? REASON FOR EXAM: Chest discomfort. ? TECHNIQUE: Prospective gated imaging of the heart were obtained for calcium evaluation of the coronary arteries. ??Agatston ??score was calculated. ??The CT exam was performed using one or morethe following dose reduction techniques: Automated exposure control, adjustment of the MA and/or Kv according to patient size, or use of the iterative reconstruction technique. ? COMPARISON:None ? FINDINGS: ? LEFT MAIN: 0 ? LEFT ANTERIOR DESCENDING: ??0 ? CIRCUMFLEX: ??5.90 ? RIGHT CORONARY ARTERY: ??13.65 ? TOTAL AGATSTON CALCIUM SCORE: ??19.55 ? This calcium score places the patient at the 33rd percentile. ? EXTRACARDIAC STRUCTURES: ??No evidence of mediastinal or hilar lymphadenopathy. ??No pericardial effusion. ??Visualized lungs demonstrate no acute process. ??No lung nodule is seen. ??Limited images of the upper abdomen demonstrate no acute findings. ? CT/CT heart calcium score wo ?? Procedure Note Danny Seaman Jr., DO - 07/08/2025 [facility] [place] [address] [place] [address] CT Scan Report Signed Patient: Berenice Disla EMR#: [id number] 13 : 8Acct:[id number] Age/Sex: 79 / FADM Date: 07/08/25 Loc: CT Room:Type: [facility] Attending Dr: Nicky REAGAN Copies to: Nicky Riddle PA-C Ordering Provider: Nicky Riddle PA-C Date of Service: 07/08/25 CT/CT heart calcium score wo: Z91.89,I10,E78.5 CT heart calcium score w/o contrast REASON FOR EXAM: Chest discomfort. TECHNIQUE: Prospective gated imaging of the heart were obtained forcalcium evaluation of the coronary arteries. Agatston score was calculated. The CT exam wasperformed using one or more the following dose reduction techniques: Automated exposure control,adjustment of the MA and/or Kv according to patient size, or use of the iterative reconstructiontechnique. COMPARISON:None FINDINGS: LEFT MAIN: 0 LEFT ANTERIOR DESCENDIN CIRCUMFLEX: 5.90 RIGHT CORONARY ARTERY: 13.65 TOTAL AGATSTON CALCIUM SCORE: 19.55 This calcium score places the patient at the 33rd percentile. EXTRACARDIAC STRUCTURES: No evidence of mediastinal or hilarlymphadenopathy. No pericardial effusion. Visualized lungs demonstrate no acute process. No lung noduleis seen. Limited images of the upper abdomen demonstrate no acute findings. CT/CT heart calcium score wo IMPRESSION: No significant extracardiac CT findings. CALCIUM SCORE INTERPRETATION (1-99) RIsk is mildly increased. Treatment recommendation - moderateintensity statin. Source: September 2017 - Coronary artery calcium data and reporting system.An expert consensus document of the Society of Cardiovascular Computed Tomography) CALCIUM SCORING OVERVIEW: Coronary calcium is a marker for plaque in a blood vessel oratherosclerosis (hardening of the arteries). The presence and amount of calcium detected in the coronaryartery by the CT scan estimates the presence and amount of atherosclerotic plaque. Thesecalcium deposits can appear years before the development of heart disease symptoms such as chest painand shortness of breath. A calcium score is computed of each of the coronary arteries based uponthe volume and density of the calcium deposits. This can be referred to as your calcified plaqueburden. It does not correspond directly to the percentage of narrowing in the artery, but does correlate with the severity of the overall coronary atherosclerotic burden. This score is then used to determine the calcium percentile which comparesyour calcified plaque to that of other asymptomatic men and women of the same age. The calciumscore, in combination with the percentile, enables your physician to determine your risk ofdeveloping symptomatic coronary artery disease, and to measure the progression of disease as well as the effectiveness of treatment. A score of zero indicates that there is no calcified plaque burden. Thisimplies that there is no significant coronary artery narrowing and very low likelihood of a cardiacevent over at least the next 3 years. It does not absolutely rule out the presence of soft,noncalcified plaque or totally eliminate the possibility of a cardiac event. A score greater than zero indicates at least some coronary arterydisease. As the score increases, so does the likelihood of a significant coronary narrowing and thelikelihood of a coronary event over the next 3 years. Similarly, the likelihood of a coronary eventincreases with increasing calcium percentiles. Impression dictated by: Danny Seaman Jr., D.ODewayne 07/08/2025 11:19 AM Dictation Location: [place] [address] Transcribed By: [facility] 07/08/25 1119 Dictated By: Danny Seaman Jr, DO 07/08/25 1116 Signed By: <Electronically signed by Danny Seaman Jr, DO inOV> 07/08/25 111 Authorizing ProviderResult TypeResult StatusNicky Riddle PAIMG XR PROCEDURES Final Result documented in this encounter Visit Diagnoses Not on filedocumented in this encounter Additional Health Concerns AssessmentNoted TimePHQ-9 Depression Total Score: 9:00 AM EDT documented as of this encounter Care Teams Team MemberRelationshipSpecialtyStart DateEnd Date Kvng Linton MD [address] [facility] [address] [place] [address] PCP - GeneralInternal Medicine11/27/22 Kvng Linton MD [address] [facility] [address] [place] [address] PCP - Rashid HI07/22/23 Reina Palma LPN [address] [facility] [address] [place] [address] 10/06/24documented as of this encounter
--- OUTSIDE RECORDS SUMMARY | 2025-07-13 14:24 | XMS_ITS | Encounter Summary ---
Author Organization [facility] Address [address] [place] [address] Care Team Providers Care Meter Reading Clerk Name Role Phone Kvng Linton MD Primary Care Provider [phone] Kvng Linton MD Unavailable [phone] Reina Palma LPN Unavailable Encounter Details DateTypeDepartmentCare Team (Latest Contact Info)Yubwjylumnv41/08/2025Patient Outreach [facility] [address] [place] [phone] Reina Palma LPN [address] [facility] 110 [place] [address] Social History Tobacco UseTypesPacks/DayYears UsedDateSmoking Tobacco: FormerCigarettes0.527 [...] , never , or living with a partner?Bhhaxuf6303/05/2024UDIT-C AnswerDate RecordedQ1: How often do you have [...] and heating?Very hard03/05/2024HQ-2 AnswerDate RecordedPatient Health Questionnaire-2 Ujsqv61608/16/2024[facility] [place] of Occupational Health - Occupational Stress QuestionnaireAnswerDate RecordedDo you feel stress - tense, restless, nervous, or anxious, or unable to sleep at night because yourmind is troubled all the time - these days?Only a emgtdn3703/05/2024Exercise Vital SignAnswerDate RecordedOn average, how many days per week do you engage in moderate to strenuous exercise (like a brisk walk)? Patient tfjnqtse30/10/2024On average, how many minutes do you engage in exercise at this level?Patient bbmkujfe28/10/2024Hunger Vital SignAnswerDate Recorded Within the past 12 [...] InformationValueDate RecordedSex Assigned at BirthNot on fileLegal EreEbkuyz91/15/2023 7:12 PM EDTGender Identity Not on fileSexual OrientationNot on filedocumented as of this encounter Progress Notes * Reina Palma LPN - 06/28/2025 3:25 PM EST Records in chart. IMMANUEL complete and medications reconciled. Pt states doing better. Has not gotten medications from pharmacy yet, but will be picking them up tomorrow. Pt declines follow up at this time. Flowsheet Row Patient Outreach from 06/28/2025 in [facility] with Reina Palma LPN Hospital Information ED, Hospital or Senior Care Facility Discharge? ED Patient has been contacted within 2 days of being seen in the ED Yes Diagnosis Constipation Discharge Date 06/25/25 Discharged To: Home Setting Discharge Hospital [facility] Engagement Call Start Time 1525 Admission Date 06/25/25 Medications Discharge medications reviewed and reconciled from hospital? Yes Is the patient having any side effects they believe may be caused by any medication additions or changes? No Does the patient have all medications ordered at discharge? Yes Appointments Does the patient have a primary care provider? Yes Nursing Interventions Patient declined follow up appointment w/ PCP Does the patient have any upcoming specialty appointments? No Self Management Does patient have home health? no Patient Teaching Does the patient have access to their discharge instructions? Yes What is the patient's perception of their health status since discharge? Improving Is the patient/caregiver able to teach back the hierarchy of who to call/visit for symptoms/problems? PCP, Specialist, Home Health nurse, Urgent Care, ED, 911 Yes Wrap Up Wrap Up Additional Comments presented to ER with complaints of worsening constipation. Labs, KUB completed.a soap suds enema was administered with partial evacuation of stool, and a digital rectal exam (TALITA) confirmed additional stool in the rectum, which was evacuated. Magnesium citrate was provided for the patient to take at home, with recommendations to begin Miralax and Colace after dischargeto further soften stool and prevent recurrence. Call End Time 1544 documented in this encounter Plan of Treatment Not on file documented as of this encounter Visit Diagnoses Diagnosis Constipation, unspecified constipation type- Primary Essential (primary) hypertension Unspecified essential hypertension documented in this encounter Additional Health Concerns AssessmentNoted TimePHQ-9 Depression Total Score: 9:00 AM EDT documented as of this encounter Care Teams Team MemberRelationshipSpecialtyStart DateEnd Date Kvng Linton MD [address] [facility] 110 [place] [address] PCP - GeneralInternal Medicine11/27/22 Kvng Linton MD [address] [facility] [address] [place] [address] PCP - Rashid GALVEZ07/22/23 Reina Palma LPN [address] [facility] [address] [place] [address] 10/06/24documented as of this encounter
--- OUTSIDE RECORDS SUMMARY | 2025-07-13 14:24 | XMS_ITS | Encounter Summary ---
Author Organization [facility] Address [address] [place] [address] Care Team Providers Care Plastic Boat Patcher Name Role Phone Kvng Linton MD Primary Care Provider [phone] Kvng Linton MD Unavailable [phone] Reina Palma LPN Unavailable Encounter Details DateTypeDepartmentCare Team (Latest Contact Info)Mkouqlnqeft71/19/2025Patient Outreach [facility] [address] [place] [phone] Reina Palma LPN [address] [facility] [address] [place] [address] Social History Tobacco UseTypesPacks/DayYears UsedDateSmoking Tobacco: FormerCigarettes0.527 [...] Gatherings with Friends and FamilyNot on file03/05/2024ttends Rastafarian ServicesNot on file03/05/2024ctive Member of Clubs or OrganizationsNot on file03/05/2024ttends Club or Organization MeetingsNot on file03/05/2024re you , , , , never , or living with a partner?Arjimvi9603/05/2024UDIT-C AnswerDate RecordedQ1: How often do you have [...] and heating?Very hard03/05/2024HQ-2 AnswerDate RecordedPatient Health Questionnaire-2 Jrlub33608/16/2024[facility] [place] of Occupational Health - Occupational Stress QuestionnaireAnswerDate RecordedDo you feel stress - tense, restless, nervous, or anxious, or unable to sleep at night because yourmind is troubled all the time - these days?Only a umgqot4003/05/2024Exercise Vital SignAnswerDate RecordedOn average, how many days per week do you engage in moderate to strenuous exercise (like a brisk walk)? Patient htwgtejo16/10/2024On average, how many minutes do you engage in exercise at this level?Patient vzypqryr32/10/2024Hunger Vital SignAnswerDate Recorded Within the past 12 [...] homeless or living in a correction (including now)?No 03/05/2024CommentsUnknownSex and Gender InformationValueDate RecordedSex Assigned at BirthNot on fileLegal LpiMjfwnv32/15/2023 7:12 PM EDTGender Identity Not on fileSexual OrientationNot on filedocumented as of this encounter Progress Notes * Reina Palma LPN - 07/09/2025 11:41 AM EST Pt calls and asks about finding a different insurance claims analyst. She shares she can not drive all the way to [facility]. They were able to schedule her in [place], however this is not until August and she was hoping to see someone sooner. Pt asks if she can find someone closer who can get her in sooner would office send referral there. I let pt know that I would clear it with PCP first, but PCP pr obably would approve sending referral to different insurance claims analyst. Pt will call expert medical writer back when she finds where she would like to go. 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
--- OUTSIDE RECORDS SUMMARY | 2025-07-13 14:25 | XMS_ITS | Clinical Summary ---
Author Organization [employer] [facility] tem Address [id number] [address] [place] [address] Care Team Providers Care Superintendent Car Construction Name Role Phone Kvng Linton MD Primary Care Provider [phone] Allergies Active AllergyReactionsCriticalityNoted DateCommentsAmoxicillin-Pot Clavulanate 04/03/2021 Other reaction(s): nausea Sulfa (Sulfonamide Antibiotics)02/07/2022 Other reaction(s): itching Medications MedicationSigDispense QuantityRefillsLast FilledStart DateEnd DateStatus atorvastatin (LIPITOR) 10 mg tablet Take 1 tablet (10 mg total) by mouth in the morning.09/22/2020ctive gabapentin (NEURONTIN) 600 mg tablet Take 1 tablet (600 mg total) by mouth 3 (three) times a day. 600 mg morning, afternoon, 300mg ifkmfso1410/24/2020ctive meloxicam (MOBIC) 15 mg tablet Take 1 [...] ProblemNoted DateDiagnosed DatePiriformis syndrome of right side10/31/2021Lumbar wusrlfch95/16/2022Lumbar pbargsuzpld05/12/2021isorder of xuvurh7611/30/2020 Family History Medical HistoryRelationNameCommentsNo Known ProblemsFatherCancerMotherstarted Breast cancer then to bone and brainRelationNameStatusCommentsFatherDeceased MotherDeceased Social History Tobacco UseTypesPacks/DayYears UsedDateSmoking Tobacco: FormerCigarettes Smokeless Tobacco: Never Tobacco Cessation:Counseling Given: Not Answered Alcohol UseStandard Drinks/WeekCommentsNot Currently0 (1 standard drink = 0.6 oz pure alcohol)ChildcareAnswerDate BbancwtxOyozrkksyZgrfuuq63/12/2019Employment AnswerDate PrcwirfgOuffyyqbphDkxyuyo21/12/2019Hunger ScreeningAnswerDate RecordedWithin the past 12 months we worried whether our food would run out before we got money to buy more.Never True02/12/2024Food Insecurity - Inability Not on file02/12/2024CommentsNoSex and Gender InformationValueDate RecordedSex Assigned at BirthNot on fileLegal GbeNciukw56/06/2015 11:37 AM EDT Gender IdentityNot on fileSexual OrientationNot on file Last Filed Vital Signs Vital SignReadingTime TakenCommentsBlood Qqvtbrtg504/7008 9:05 AM EDT Mpupx259403/13/2024 9:05 AM OHAQbyjlkljgdp30.5 ??C (97.7 ??F)03/13/2024 6:44 AM EDTRespiratory Ytns0682 9:05 AM EDTOxygen Bmbusbcxel61%03/13/2024 9:05 AM EDTInhaled Oxygen Concentration--Xeyvcc96 kg (136 lb 11 oz)03/13/2024 6:44 AM BRZCswjgg117 cm (5' 10.87 )03/13/2024 6:44 AM EDTBody Mass Index19.14003/13/2024 6:44 AM EDT Plan of Treatment DateTypeDepartmentCare Team (Latest Contact Info)Mzkzqssbyye74/03/2026 11:00 AM ESTOffice Visit [facility] [address] [place] [address] [place] [address] Tanner Isaac MD [address] [facility] [place] [address] Health MaintenanceDue DateLast DoneCommentsDepression Kctcnzbbx63/03/1960Zoster (Shingles) Vaccine (1 of 2)11/21/1997Fall Risk Mdjgjfeww28/03/2013DTaP,Tdap and Td Vaccines (2 - Td or Tdap)/08/2011RSV ( or age 60+ yrs) (1 - 1-dose 75+ series)11/21/2022Tobacco Dvqlneuub25/OVID-19 Vaccine ( season)/, 10/07/2020, 09/16/2020 Influenza Cghtzle91/01/550013/, 05/03/2021, 04/12/2020, Additional history exists Medical Devices ImplantedTypeAreaManufacturerDevice IdentifierShelf Expiration DateModel / Serial / LotOrthopedic ImplantOrthopedic ImplantRight: Foot Insurance Care Teams Team MemberRelationshipSpecialtyStart DateEnd Date Kvng Linton MD [address] [facility] [address] [place] [phone] PCP - GeneralInternal Medicine11/30/20
--- OUTSIDE RECORDS SUMMARY | 2025-07-13 14:25 | XMS_ITS | Patient Health Record ---
Author Organization [facility] in [place] Address [address] [place] [address] Care Team Providers Care County Director Welfare Name Role Phone Yanira DELONG, Hayde Primary Care Provider Unavaila ble Allergies Allergen (clinical drug ingredient) Drug/Non Drug Allergy documented on EMR Reaction Allergy Type Onset Date Status Amoxicillin-Clavulanate (amoxicillin-clavulanate)UnknownDrug AllergyActive Reason For Referral No Information Medications Medication SIG (Take, Route, Frequency, Duration) Notes Start Date End Date Status Aspir-81 81 MG 1 tablet Orally Once a day ActiveKrill Oil 300 MGOrallyActivetraMADol HCl 50 MG1 tablet as needed Orally every 6 hrsActiveSimvastatin 20 MG1 tablet in the evening Orally Once a day TxfpbwCozryznnwd36/01/1900ActiveCalcium Carbonate 1500 MG1 tablet with food Orally Twice a dayActiveAtenolol-Jlcxddnigclqwnwtumya83/01/1900ActiveMeloxicam ActiveSM Coenzyme Q-10 100 umzjzwgkz63/01/1900Activemultivitamin Multiple Zbnfmoyz95/01/1900ActiveFlonase 50 MCG/DOSE1 spray in each nostril Nasally Once a dayActiveSM Coenzyme Q-10 100 gmgiotlbj99/01/1900ActiveOmeprazole ActiveAtenolol-Jgoidstfvggzaxwvpeuu16/01/1900Activemultivitamin Multiple Lytjyvlb15/01/4262LaeqxvKsweahkot32/01/1900Active Social History Tobacco Use: Social History Observation Description Date Details (start date - stop date) Never Smoker NA - NA Tobacco Use/Smoking Question Answer Notes Patient is a nonsmoker Problems Problem Type SNOMED Code ICD Code Onset Dates Problem Status W/U Status Risk Notes Problem Anxiety (24575613) Anxiety (F41.9) ActiveconfirmedProblemPeripheral neuropathy (256619787)Peripheral neuropathy (G62.9)ActiveconfirmedProblemTransient ischemic attack (819501299)TIA (transient ischemic attack) (G45.9)ActiveconfirmedProblemRestless legs (49348648)RLS (restless legs syndrome) (G25.81)ActiveconfirmedProblemEdema (753984302)Edema extremities (R60.0)ActiveconfirmedProblemHyperlipoproteinemia (0337983)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)ActiveconfirmedProblemAcute osteomyelitis of ankle and/or foot (669013087)Osteomyelitis of ankle or foot, right, acute (M86.171) ActiveconfirmedProblemEssential hypertension (08611716)BP (high blood pressure) (I10)ActiveconfirmedProblem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 (L97.512)ActiveconfirmedProblemNon-pressure chronic ulcer of right heel and midfoot with muscle involvement without evidence of necrosis (L97.415) ActiveconfirmedProblemAtrophy of nail (679710182)Atrophy of nail (L60.3)Active confirmedProblemChronic 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 layer exposed (L97.412)ActiveconfirmedProblemChronic ulcer of right foot (disorder) (39043962671915913)Chronic ulcer of right foot with fat layer exposed (L97.512) Activeconfirmed Plan Of Treatment Pending Test Test Name Order Date ACID FAST SMEAR AND CX 10/22/2022 FUNGAL CULTURE 10/22/2022 Insurance Providers Payer Name Payer Address Payer Phone Subscriber Number Group Number Insured Name Patient Relationship to Insured Coverage Start Date Coverage End Date [employer] MEDICARE ADV PLAN [address] [place] [address] [id number] NighatKikeon Self - patient is the insured 4 Medical (General) History Medical History History ICD Code History of hypertension History of diagnoses, syndromes and conditions Suspicious Changing Skin Lesion on BackUnspecified essential vvfzhzkqesyv284.7Ofeyogciv225.90GERD (gastroesophageal reflux disease)530.81Lung vaxkep441.11Surgical History Surgery Date(Month/Year) section Surgical / procedural history NAVEL CYST; Excision of Changing Suspicious Skin Lesion on Back
--- OUTSIDE RECORDS SUMMARY | 2025-07-13 14:25 | XMS_ITS | Clinical Summary ---
Author Organization [facility] Address [address] [place] [address] Care Team Providers Care Water Softener Servicer Name Role Phone Kvng Linton MD Primary Care Provider [phone] Kvng Linton MD Unavailable [phone] Reina Palma LPN Unavailable Allergies Active AllergyReactionsCriticalityNoted DateCommentsAmoxicillin-Pot Clavulanate Nausea Only03/12/2023Sulfa Mypqighhrsv07/22/2023 Other Reaction(s): itching Medications MedicationSigDispense QuantityRefillsLast FilledStart [...] needed for severe pain 40 tablet 5Active docusate sodium (Colace) 100 MG capsule Take 100 mg by mouth in the morning and 100 mg before bedtime.Active polyethylene glycol, PEG, 3350 (Miralax) 17 g packet Take 17 g by mouth DailyActive atorvastatin (Lipitor) 10 MG tablet Indications:Coronary arteriosclerosis due to lipid rich plaque,Mixed hyperlipidemiaTake 1 tablet (10 mg) by mouth Daily 30 tablet 6Active atorvastatin (Lipitor) 10 MG tablet Indications:DyslipidemiaTake 1 [...] all this for 3 days. 6 tablet Expired Active Problems ProblemNoted DateDiagnosed DateCoronary arteriosclerosis due to lipid rich uyosnb6007/08/2025Mixed ouwefmgyfgftlk28/18/2025trophy of nail02/23/2025Edema 02/23/20259234Mvjpinltehxtxqurnzbe20/05/2025Transient ischemic pdkngg7302/23/2025 Vitamin D paidxxuowa98/09/2025History of ccpmuv9907/30/2024Racing heart beat 10/22/2023hronic idiopathic kegvhchrzcex12/02/2024bnormal blood chemistry 03/12/20234997Gwqbcgb58/22/2023ervical paraspinal muscle spasm03/12/2023harcot's joint, right ankle and foot03/12/2023ecreased estrogen level03/12/2023Equinus contracture of right ankle03/12/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 syndrome of right /22/2023Inflammatory and toxic bfljkkphha21/22/2023Laryngopharyngeal zdavoy3903/12/2023Left sided sciatica 03/12/2023Lumbago with sciatica, left side03/12/2023Lumbar degenerative disc nvwkaml0003/12/2023Lumbar paraspinal muscle spasm03/12/2023Muscular atrophy 03/12/2023Neural foraminal stenosis of lumbar spine03/12/2023Neurogenic pain 03/12/2023Osteoarthritis of spine with radiculopathy, lumbar fpmocz5103/12/2023 Sgvtoargeywxc79/22/2023Osteopenia of multiple sites03/12/2023Other chronic pain 03/12/2023Other hammer toe(s) (acquired), right foot03/12/2023haryngoesophageal /22/2023lenohumeral bcmywfrng69/22/2023rimary localized osteoarthrosis of ankle and foot03/12/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 03/12/2023rimary osteoarthritis, right xfwautar89/22/2023Rheumatoid factor ukogltsf04/22/2023Restless legs syndrome (RLS)03/12/2023Essential (primary) adljywdplfnz61/19/2023Lumbar snomsjsw00/16/2022isorder of ugbgvq7711/30/2020 Lumbar hxerasmelvd17/12/3724Pyggwsftsdxd39/01/2010 Resolved Problems ProblemNoted DateDiagnosed DateResolved DateOther acute osteomyelitis, right ankle and foot/tinic jzpjlbzes26/harcot's kaljfxexwmc39Non-pressure chronic ulcer of other part of right foot with fat layer tpltext43ost-traumatic osteoarthritis, right mkcgonik71/11/2024Piriformis syndrome of right side10/31/2021 02/23/2025Primary localized ymedwgsgpxxpvt41 Encounters DateTypeDepartmentCare OdsuYurvknqwvlj77/19/2025Patient Outreach [facility] [address] [place] [address] Reina Palma LPN 07/08/2025Results Follow-Up [facility] [address] [place] [address] [place] [phone] HEART CALCIUM SCORE WO07/08/2025External Result Encounter [facility] Department Unsolicited Nicky Riddle PA 07/05/2025Patient Outreach [facility] [address] [place] [address] Reina Palma LPN 06/28/2025Patient Outreach [facility] [address] [place] [address] Reina Palma LPN 06/28/2025bstract [facility] [address] [place] [address] Renia Palma LPN 06/28/2025bstract [facility] [address] [place] [address] [place] [address] Kvng Linton MD 06/22/2025Patient Outreach [facility] [address] [place] [place] [address] Reina Palma LPN 06/21/2025bstract [facility] [address] [place] [address] Kvng Linton MD 06/16/2025 11:30 AM ESTOffice Visit [facility] [address] [place] [address] Nicky Riddle PA Essential (primary) hypertension (Primary Dx); Other chronic pain; Polyarthritis; Neurogenic pain; Chronic right shoulder pain; Neck pain; Dyslipidemia; Abnormal urine odor; At risk for coronary artery disease; Acute cystitis with fhempkcpv11/26/2817Zcsqzg54/21/5319Lnifqp08/15/2025Refill [address] [place] [address] Nicky Riddle PA Primary osteoarthritis, unspecified site05/25/2025Refill [facility] [address] [place] [address] Heydi Syed MA Essential (primary) laodmsqbgoup92/14/2025Patient Outreach [facility] [address] [place] [address] Reina Palma LPN from Last 3 Months Immunizations ImmunizationAdministration DatesNext DueInfluenza, High Dose Seasonal, Preservative Free05/03/2021,04/05/2020,07/02/2019Influenza, High-dose Seasonal, Quadrivalent, Preservative Free07/05/2022,04/12/2020Influenza, injectable, MDCK, preservative free, ayxgllawtcgo58/15/2018Influenza, injectable, quadrivalent 04/23/2016Influenza, seasonal, intradermal, preservative free04/23/2018 [...] Gatherings with Friends and FamilyNot on file03/05/2024ttends Sikhism ServicesNot on file03/05/2024ctive Member of Clubs or OrganizationsNot on file 03/05/2024ttends Club or Organization MeetingsNot on file03/05/2024re you , , , , never , or living with a partner? Ghrrvoq4103/05/2024UDIT-CAnswerDate RecordedQ1: How often do you have a [...] heating?Very hard 03/05/2024HQ-2AnswerDate RecordedPatient Health Questionnaire-2 Score0 06/16/2025[facility] - Occupational Stress QuestionnaireAnswerDate RecordedDo you feel stress - tense, restless, nervous, or anxious, or unable to sleep at night because yourmind is troubled all the time - these days?Only a pypxgr1903/05/2024Exercise Vital SignAnswerDate Recorded On average, how many days per week do you engage in moderate to strenuous exercise (like a brisk walk)?Patient ieokhzca84/10/2024On average, how many minutes do you engage in exercise at this level?Patient wfaxewxa04/10/2024Hunger Vital SignAnswerDate RecordedWithin the past 12 months, [...] steady place to sleep or slept in [facility] (including now)?No 10/30/2023Housing Stability Vital SignAnswerDate RecordedIn the last 12 months, was there a time when you were not able to pay the mortgage or rent on time?No 03/05/2024In the past 12 months, how many times have you moved where you were living?t any time in the past 12 months, were you homeless or living in a half-way (including now)?No03/05/2024CommentsUnknownSex and Gender InformationValueDate RecordedSex Assigned at BirthNot on fileLegal SexFemale 10/03/2022 7:12 PM EDTGender IdentityNot on fileSexual OrientationNot on file Last Filed Vital Signs Vital SignReadingTime TakenCommentsBlood Mxtbkyoe410/7806/16/2025 11:42 AM EST Sfedd458406/16/2025 11:42 AM WHXQtunzzifvsk59.2 ??C (98.9 ??F)01/09/2024 1:23 PM EDTRespiratory Fpvn180202/23/2025 10:11 AM EDTOxygen Kkhxvaalmv758%06/16/2025 11:42 AM ESTInhaled Oxygen Concentration--Lwillz69.3 kg (144 lb)06/16/2025 11:42 AM KFFPgqbbq331.3 cm (5' 11 )06/16/2025 11:42 AM ESTBody Mass Index20.08 06/16/2025 11:42 AM EST Plan of Treatment Health MaintenanceDue DateLast DoneCommentsInfluenza Vaccine (#1)03/22/2025 07/05/2022, 05/03/2021, 04/12/2020, Additional history existsMedicare Annual Wellness (AWV)608/11/2024, 02/06/2024, 05/07/2022, Additional history existsPneumococcal Vaccine: 65+ LcobkZjtkqxstt47/22/2020, 04/05/2020, 11/16/2013 FIT-CGUIixuldnwkygs61/20/2022, 04/10/2022, 02/24/2019, Additional history exists XylalewvsDhrdrtuhcxjc73/20/2023, 04/09/2023, 08/18/2021, Additional history existsCT QyjvoglnvhwbKjfxogmiboet64/28/2024, 4ColonoscopyDiscontinued 03/13/2024, 03/13/2024, 12/19/2023, Additional history existsColorectal Cancer ScreeningDiscontinuedFITDiscontinuedFOBTDiscontinuedSigmoidoscopyDiscontinued Procedures Procedure NamePriorityDate/TimeAssociated DiagnosisCommentsCT HEART CALCIUM SCORE WO07/08/2025 11:16 AM EST URINARY TRACT INFECTION (HTRX)Tgwkgwr3306/16/2025 12:16 PM EST Acute cystitis with hematuria POCT URINALYSIS LGQLWQMWExjsbyc36/26/2025 12:13 PM EST Abnormal urine odor MM TOMOSYNTHESIS SCREENING BI04/10/2023 2:57 PM EDT LAB COLOGUARD?? COLON CANCER KFTUJFDopnsur69/20/2022 from Last 3 Months or Most Recently Relevant to Health Maintenance Results * CT HEART CALCIUM SCORE WO [...] D.O. ??07/08/2025 11:19 AM ? Dictation Location: [facility]-- ? Transcribed By: ? PWS ?07/08/25 1119 ? Dictated By: ?Danny Seaman Jr, DO ?07/08/25 1116 ? Signed By: <Electronically signed by Danny Seaman Jr, DO in OV> ?07/08/25 1119 Narrative 07/08/2025 11:21 AM EST [facility] ?[facility] [place] ?[address] ? [place], [place] [address] ? CT Scan Report ? Signed ? Patient: Shira,Berenice E ?MR#: [id number] ?? 13 ? : 1945 ?Acct:[id number] ? Age/Sex: 79 / F ?ADM Date: 12/18/25 ? Loc: CT ?Room: ?Type: REG CLI ?? Attending Dr: Nicky Riddle CLASSIFIED ADVERTISING CLERK-C ?? Copies to: YUE Mathew-C ? Ordering Provider: Nicky Riddle PA-C ?? [...] Note Danny Seaman Jr., DO - 07/08/2025 [facility] [address] [place] [address] [place] [address] CT Scan Report Signed Patient: Berenice Silva EMR#: [id number] 13 : 8Acct:[id number] Age/Sex: 79 / FADM Date: 07/08/25 Loc: CT Room:Type: [facility] Attending Dr: Nicky LAYNEC Copies to: Nicky Riddle PA-C Ordering Provider: [...] percentiles. Impression dictated by: Danny Seaman Jr., D.O. 07/08/2025 11:19 AM Dictation Location: [place] [address] Transcribed By: [facility] 07/08/25 1119 Dictated By: Danny Seaman Jr, DO 07/08/25 1116 Signed By: <Electronically signed by Danny Seaman Jr, DO inOV> 07/08/25 1119 Authorizing ProviderResult TypeResult StatusNicky Riddle PAIMG XR PROCEDURES Final Result * URINARY TRACT INFECTION (HTRX) (06/16/2025 12:16 PM EST)ComponentValueRef RangeTest MethodAnalysis TimePerformed AtPathologist SignatureACINETOBACTER FNTFTMBM759.961 - 24.689 ppm06/17/2025 8:53 AM ESTHealthTrackRx at [facility] ACINETOBACTER BAUMANIINot Zplcvtnf30.961 - 24.689 ppm06/17/2025 8:53 AM EST [facility] at LabPortCITROBACTER RALNYGKV549.000 - 32.015 ppm06/17/2025 8:53 AM ESTHealthTrackRx at LabPortCITROBACTER FREUNDIINot Ssbgivgo44.000 - 32.015 ppm06/17/2025 8:53 AM ESTHealthTrackRx at LabPortENTEROBACTER AEROGENES, WMTSSMJ469.000 - 32.290 ppm06/17/2025 8:53 AM ESTHealthTrackRx at LabPortENTEROBACTER AEROGENES, CLOACAENot Srqcymon52.000 - 32.290 ppm 06/17/2025 8:53 AM ESTHealthTrackRx at LabPortENTEROCOCCUS FAECALIS, FAECIUM0 26.000 - 33.043 ppm06/17/2025 8:53 AM ESTHealthTrackRx at LabPortENTEROCOCCUS FAECALIS, FAECIUMNot Lcteuuhl49.000 - 33.043 ppm06/17/2025 8:53 AM EST [facility] at LabPortESCHERICHIA NYFL036.000 - 28.500 ppm06/17/2025 8:53 AM ESTHealthTrackRx at LabPortESCHERICHIA COLINot Zdiyjdor43.000 - 28.500 ppm 06/17/2025 8:53 AM ESTHealthTrackRx at LabPortKLEBSIELLA PNEUMONIAE, OXYTOCA0 23.000 - 31.865 ppm06/17/2025 8:53 AM ESTHealthTrackRx at LabPortKLEBSIELLA PNEUMONIAE, OXYTOCANot Tfbglcvn40.000 - 31.865 ppm06/17/2025 8:53 AM EST [facility] at LabPortMORGANELLA SYRJOIUS408.961 - 24.689 ppm06/17/2025 8:53 AM ESTHealthTrackRx at LabPortMORGANELLA MORGANIINot Zfmuncmi73.961 - 24.689 ppm06/17/2025 8:53 AM ESTHealthTrackRx at LabPortPROTEUS MIRABILIS, VULGARIS0 23.000 - 28.500 ppm06/17/2025 8:53 AM ESTHealthTrackRx at LabPortPROTEUS MIRABILIS, VULGARISNot Jsghkaau95.000 - 28.500 ppm06/17/2025 8:53 AM EST [facility] at LabPortPSEUDOMONAS YXAFHFRYKM514.000 - 31.801 ppm06/17/2025 8:53 AM ESTHealthTrackRx at LabPortPSEUDOMONAS AERUGINOSANot Iifrhslk05.000 - 31.801 ppm06/17/2025 8:53 AM ESTHealthTrackRx at LabPortSTAPHYLOCOCCUS AUREUS0 26.000 - 31.595 ppm06/17/2025 8:53 AM ESTHealthTrackRx at [facility] STAPHYLOCOCCUS AUREUSNot Emocevdt04.000 - 31.595 ppm06/17/2025 8:53 AM EST [facility] at LabPortSTREPTOCOCCUS AGALACTIAE (GROUP B STREP)026.000 - 32.435 ppm06/17/2025 8:53 AM ESTHealthTrackRx at LabPortSTREPTOCOCCUS AGALACTIAE (GROUP B STREP)Not Darfygau91.000 - 32.435 ppm06/17/2025 8:53 AM ESTHealthTrackRx at LabPortCANDIDA ALBICANS, PARAPSILOSIS, DHDIFYQZKF878.000 - 30.347 ppm06/17/2025 8:53 AM ESTHealthTrackRx at LabPortCANDIDA ALBICANS, PARAPSILOSIS, TROPICALISNot Hfgwabnb52.000 - 30.347 ppm06/17/2025 8:53 AM EST [facility] at LabPortCANDIDA RDDCUHHT929.000 - 31.618 ppm06/17/2025 8:53 AM ESTHealthTrackRx at LabPortCANDIDA GLABRATANot Bpypaapc40.000 - 31.618 ppm 06/17/2025 8:53 AM ESTHealthTrackRx at LabPortCANDIDA NFAWTE209.000 - 30.873 ppm06/17/2025 8:53 AM ESTHealthTrackRx at LabPortCANDIDA KRUSEINot Detected 23.000 - 30.873 ppm06/17/2025 8:53 AM ESTHealthTrackRx at LabPortSERRATIA WJFJMOAHCA092.000 - 31.581 ppm06/17/2025 8:53 AM ESTHealth[facility]Rx at [facility] SERRATIA MARCESCENSNot Qoxnrfwf94.000 - 31.581 ppm06/17/2025 8:53 AM EST [facility] at LabPortSTREPTOCOCCUS PYOGENES (GROUP A STREP)019.961 - 24.689 ppm06/17/2025 8:53 AM ESTHealthTrackRx at LabPortSTREPTOCOCCUS PYOGENES (GROUP A STREP)Not Eqwsmgpy66.961 - 24.689 ppm06/17/2025 8:53 AM ESTHealthTrackRx at LabPortSTAPHYLOCOCCUS EPIDERMIDIS, HAEMOLYTICUS, LUGDUNENSIS, SAPROPHYTICUS (MKXIQ472.961 - 24.689 ppm06/17/2025 8:53 AM ESTHealth[facility] STAPHYLOCOCCUS EPIDERMIDIS, HAEMOLYTICUS, LUGDUNENSIS, SAPROPHYTICUS (URINANot Zzitjdvh32.961 - 24.689 ppm06/17/2025 8:53 AM EST[facility] STAPHYLOCOCCUS EPIDERMIDIS, HAEMOLYTICUS, LUGDUNENSIS, SAPROPHYTICUS (URINA0 19.961 - 24.689 ppm06/17/2025 8:53 AM ESTHealth[facility] at [facility] STAPHYLOCOCCUS EPIDERMIDIS, HAEMOLYTICUS, LUGDUNENSIS, SAPROPHYTICUS (URINANot Weyujcxt12.961 - 24.689 ppm06/17/2025 8:53 AM ESTHealth[facility]Rx at [facility] Specimen (Source)Anatomical Location / LateralityCollection Method / Volume Collection TimeReceived QoatZkpft64/26/2025 12:16 PM EST06/17/2025 2:25 AM EST Narrative Authorizing ProviderResult TypeResult StatusNicky Riddle PALAB BLOOD ORDERABLESFinal ResultPerforming OrganizationAddressCity/State/ZIP CodePhone Number [facility] [address] [address] * (ABNORMAL) POCT urinalysis dipstick manually resulted [...] For Rehabilitation ?[address] ? [place] [address] ? Mammography Report ? Signed ? Patient: SHIRA,BERENICE E ?MR#: [id number] ?? : 1945 ?Acct:[id number] ?? Age/Sex: 77 / F ?ADM Date: 04/09/23 ?? Loc: MAMMO ? Attending Dr: KVNG LINTON ? Ordering Physician: KVNG LINTON ? Results: ? Date of Service: 04/09/23 ?Follow Up: ? Procedure(s): MM tomosynthesis screening BI ?? Accession Number(s): [id number] ? cc: KVNG LINTON ? Patient: ? BERENICE SILVA. ? Exam Date: ? 04/09/2023 ?? : ? 1945 ?Gender:F ? Ordering : ? DR KVNG LINTON MKathy ? Admission #: ? [id number] ?? Family : ?Order #: ? [id number] ? CLICK HERE TO VIEW EXAM ? [...] ?04/10/231457 ? DD/ 56 ? TD/TT: ? Factory Focus Technician: Procedure Note Radiology, Radiologist, MD - 04/12/[address] [address] Mammography Report Signed Patient: BERENICE SILVA EMR#: [id number] : 8Acct:[id number] Age/Sex: 77 / FADM Date: 04/09/23 Loc: MAMMO Attending Dr: KVNG LINTON Ordering Physician: KVNG LINTONResults: Date of Service: 04/09/23Follow Up: Procedure(s): MM tomosynthesis screening BI Accession Number(s): [id number] cc: KVNG LINTON Patient: BERENICE SILVA Exam Date: 04/09/2023 : 1945 Gender:F Ordering : DR KVNG LINTON M.D. Admission #: [id number] Family : Order #: [id number] CLICK HERE TO VIEW EXAM RADIOLOGY REPORT [...] M.D. Signed By:04/10/23 1458 DD/ 1457 TD/TT: Factory Focus Technician: Authorizing ProviderResult TypeResult StatusDajuancarlos Linton MDCLINISYNC IMAGING Final Result * Cologuard?? [...] Rosario. et al, N Engl J Med 2014;370(14):7175-5463) The normal value (reference range) for this assay is negative. COLOGUARD RE-SCREENING RECOMMENDATION: Periodic colorectal cancer screening is an important part ofpreventive healthcare for asymptomatic individuals at average risk for colorectal cancer. ??Following a negative Cologuard result, the [place] [employer] and U.S. Multi-Society Task Force screening guidelines recommend a Cologuard re-screening interval of 3 years. References: [place] [employer] Guideline for Colorectal Cancer Screening: https://www.cancer.or g/cancer/azwnd-acockp-twfhyr/ffbsmxjrs-cmcwlnnmk-wgarnro/acs-recommendations.htm chase; Dave GALEAS, Jacobo ABRAHAM, Nika LeijaK, Colorectal Cancer Screening: Recommendations for Physicians and Patients from the U.S. Multi-Society Task Force on Colorectal Cancer Screening , Am J Gastroenterology 2017; 112:0395-3430. TEST DESCRIPTION: Composite algorithmic analysis of stool [...] (Luc Reardon al, N Engl J Med 2014;370(14):0249-8943.) Cologuard may produce a false negative or false positive result (no colorectal cancer or precancerous polyp present at colonoscopy follow up). A negative Cologuard test result does not guarantee the absence of CRC or advanced adenoma (pre-cancer). The current Cologuard screening interval is every 3 years. ([place] [employer] and U.S. Multi-Society Task Force). Cologuard performance data in a 10,000 patient pivotal study using colonoscopy as the reference method can be accessed at the following location: www.[employer]/results. Additional description of the Cologuard test [...] EAccount TypeRelation to PatientDate of BirthPhone Billing AddressPersonal/HqxwufLcur[birth year][address] [address] Care Teams Team MemberRelationshipSpecialtyStart DateEnd Date Kvng Linton MD [address] [facility] [address] [place] [address] PCP - GeneralInternal Medicine11/27/22 Kvng Linton MD [address] [facility] [address] [place] [address] PCP - [place] MA07/22/23 Reina Palma LPN [address] [facility] [address] [place] [address] 10/06/24
--- OUTSIDE RECORDS SUMMARY | 2025-07-13 14:25 | XMS_ITS | Clinical Summary ---
Author Organization [facility] Address [address] [place] [address] Phone Care Team Providers Care Card Fixer Name Role Phone Unavailable Primary Care Provider Unavailabl e Encounters DateTypeDepartmentCare ChosRrfuomtthmo99/30/2025Transcribe Orders [facility] [address] [place] [place] [address] Nicky Riddle, ESA Essential (primary) hypertension (Primary Dx); Hyperlipidemia, unspecified; Other specified personal risk factors, not elsewhere classifiedfrom Last 3 Months Social History Tobacco UseTypesPacks/DayYears UsedDateSmoking Tobacco: Never Assessed CommentsUnknownSex and Gender InformationValueDate RecordedSex Assigned at Not on fileLegal WfjRruqir66/30/2025 11:52 AM ESTGender IdentityNot on file Sexual OrientationNot on file Plan of Treatment Health MaintenanceDue DateLast DoneCommentsLipid Panel1947Welcome to Medicare Visit1945Hepatitis C Jmjlsvbou01/03/1966DTaP/Tdap/Td Vaccines (1 - Tdap)11/21/1969Pneumococcal Vaccine (1 of 1 - PCV)11/21/1997Zoster Vaccines (1 of 2)11/21/1997Bone Density Scan11/21/2012RSV High Risk: (Elderly (60+) or Population) (1 - 1-dose 75+ series)11/21/2022OVID-19 Vaccine (1 - 2024-26 season)2025Influenza Vaccine (#1)2025HIB VaccinesAged OutNo longer eligible based on patient's [...]
--- OUTSIDE RECORDS SUMMARY | 2025-07-13 14:26 | XMS_ITS | Patient Health Record ---
Author Organization [facility] Address [address] [place] [address] Care Team Providers Care Retaining Room Cutter Name Role Phone Araceli Woo Primary Care Provider Johanna Wheat Unavailable Helga Echevarria Unavailable [phone] Lizeth Dimas Unavailable [phone] Reason For Referral No Information Medications Medication SIG (Take, Route, Frequency, Duration) Notes Start Date End Date Status Ibuprofen 800 MG Tablet 1 tablet with fo od or milk as needed Orally Three times a day 05/13/2024ctive Encounters Encounter Location Date Provider Diagnosis [facility] [address] [place] [address] 11/23/2024 Araceli Woo Plan Of Treatment No Information Insurance Providers Payer Name Payer Address Payer Phone Subscriber Number Group Number Insured Name Patient Relationship to Insured Coverage Start Date Coverage End Date [employer] [address] [address] [address] [place] [phone] [id number] Wes SILVA - patient is the [id number] 2023
== END 2025-07-13 14:22 | disposition home or self-care (01) ==
LOC: WC 14:22
PROVIDERS: PCP Internal Medicine; Visit Provider Physician Assistant
DX: L97.412 Non-pressure chronic ulcer of right heel and midfoot with fat layer exposed (principal)
CPT/HCPCS: 11042